=== PATIENT | female | born 1940 | race Two or more races ===

== ENCOUNTER 2020-08-02 13:04 | Outpatient (REF) | payer MEDICARE, SELFPAY ==
--- NOTE | 2020-08-02 13:08 | XR_ITS ---
EXAMINATION: XR WRIST, RIGHT CLINICAL INFORMATION: Right wrist fracture COMPARISON: Previous x-ray most recent 06/14/2020 TECHNIQUE: PA, lateral, and oblique views of the right wrist. FINDINGS: There is a transverse impacted fracture of the right distal radius. There is a surrounding bony callus formation suggestive of evidence of healing. There is slight dorsal angulation of the distal radius with respect to the more proximal shaft. Fracture line is still seen. There is a a nondisplaced fracture of the ulnar styloid. There is a well-corticated soft tissue ossification adjacent to the ulnar styloid questionable for an ununited ossification center versus old fracture. There is arthritis at the first CHCF and MCP joints. Soft tissues are unremarkable. XR/XR wrist RT min 3V IMPRESSION: Healing transverse distal radius fracture. Nondisplaced ulnar styloid fracture.
== END 2020-08-02 13:05 | disposition home or self-care (01) ==
LOC: HO.HOSX 13:04
PROVIDERS: Visit Provider Physician Assistant
DX: S52.501D Unspecified fracture of the lower end of right radius, subsequent encounter for closed fracture with routine healing (principal)
CPT/HCPCS: 73110; 99212

== ENCOUNTER 2020-08-13 11:07 | Outpatient (REF) | payer MEDICARE, SELFPAY ==
--- NOTE | 2020-08-13 | MM_ITS ---
EXAMINATION: BONE DENSITOMETRY CLINICAL INDICATION: Age-related osteoporosis without current pathological fracture. COMPARISON: This is the patient's baseline examination. TECHNIQUE: Using a [employer] DXA System (software version: 13.1) manufactured by [employer], dual-energy x-ray absorptiometry was performed of the lumbar spine and left hip. The images are of good technical quality. Summary results are attached. FINDINGS: AP SPINE L1-L4: BMD 0.894 g/cm2, Z-score -0.2, T-score -2.4, osteopenia. LEFT FEMUR, NECK: BMD 0.792 g/cm2, Z-score 0.6, T-score -1.8, osteopenia. LEFT FEMUR, TOTAL: BMD 0.940 g/cm2, Z-score 1.7, T-score -0.5, normal. IDENTIFIED RISK FACTORS: Recurrent falls, history of fracture (adult), menopause. HISTORY OF FRACTURE: Wrist. MEDICATIONS: None listed. MM/XR DEXA axial skeleton IMPRESSION: 1. DIAGNOSIS: Osteopenia based on the lowest T-score value of -2.4 in the lumbar spine applying World Health Organization criteria. 2. 10-YEAR FRACTURE RISK PREDICTION, FRAX: Major osteoporotic fracture (clinical spine, forearm, hip or shoulder) 8.8%. Hip fracture 2.3%. 3. Treatment Recommendations: NOF guidelines recommend consideration for treatment in postmenopausal women and men age 50 and older presenting with the following: -A hip or vertebral (clinical or morphometric) fracture. -T-score less than or equal to -2.5 at the femoral neck or spine after appropriate evaluation to exclude secondary causes. -Low bone mass at the hip or spine and a 10-year fracture probability by FRAX of greater than or equal to 3% for hip fracture or greater than or equal to 20% for major osteoporotic fracture based on the [place] adapted WHO algorithm. 4. Other Recommendations: All treatment decisions require clinical judgment and consideration of individual patient factors, including patient preferences, comorbidities, previous drug use, risk factors not captured in the FRAX model (e.g. frailty, falls, vitamin D deficiency, increased bone turnover, interval significant decline in bone density) and possible under or overestimation of fracture risk by FRAX. Additional medical evaluation for secondary cause of low bone mineral density may be appropriate. FUTURE SCAN RECOMMENDATION: People with diagnosed cases of osteoporosis or at high risk for fracture should have regular bone mineral density tests. For patients eligible for Medicare, routine testing is allowed once every 2 years. The testing frequency can be increased to one year for patients who have rapidly progressing disease, those who are receiving or discontinuing medical therapy to restore bone mass, or have additional risk factors.
== END 2020-08-13 11:08 | disposition home or self-care (01) ==
LOC: HO.MAMMO 11:07
PROVIDERS: PCP Internal Medicine Geriatric Medicine; Visit Provider Internal Medicine Geriatric Medicine
DX: S62.101D Fracture of unspecified carpal bone, right wrist, subsequent encounter for fracture with routine healing (principal); M81.0 Age-related osteoporosis without current pathological fracture
CPT/HCPCS: 77080

== ENCOUNTER → 2020-09-19 10:56 | Outpatient (BNVA) | payer MEDICARE, SELFPAY | PROVIDERS: PCP Internal Medicine Geriatric Medicine; Referring Provider Internal Medicine Geriatric Medicine; Visit Provider Nurse Practitioner Family | DX: I25.10 Atherosclerotic heart disease of native coronary artery without angina pectoris (principal); I10 Essential (primary) hypertension; R94.39 Abnormal result of other cardiovascular function study; E78.5 Hyperlipidemia, unspecified; I69.398 Other sequelae of cerebral infarction; H53.9 Unspecified visual disturbance | CPT/HCPCS: 99212 ==

== ENCOUNTER 2020-09-27 12:22 | Outpatient (REF) | payer MEDICARE, SELFPAY ==
[2020-09-27 14:40] LABS: Alanine Aminotransferase 9 U/L (0-31); Anion Gap 12 (12-20); Aspartate Amino Transferase 19 U/L (5-31); Blood Urea Nitrogen 16 mg/dL (9-16); Carbon Dioxide 26 mmol/L (22-29); Chloride 103 mmol/L (96-108); Cholesterol 249 mg/dL; Estimated Glomerular Filt Rate > 60; Glucose Random 90 mg/dL (60-115); HDL Cholesterol 42 mg/dL; LDL Cholesterol Calculated 175 mg/dl; Potassium 4.7 mmol/l (3.3-5.1); Sodium 136 mmol/L (135-145); Triglycerides 162 mg/dL
== END 2020-09-27 12:23 | disposition home or self-care (01) ==
LOC: HO.LAB 12:22
PROVIDERS: PCP Internal Medicine Geriatric Medicine; Visit Provider Nurse Practitioner Family
DX: I10 Essential (primary) hypertension (principal); E78.5 Hyperlipidemia, unspecified
CPT/HCPCS: 80048; 80061; 84450; 84460

== ENCOUNTER 2021-02-06 14:22 | Emergency (ER) | payer MEDICARE, SELFPAY ==
[2021-02-06 14:27] VITALS: BP 152/83; PULSE 85; RESP 18; TEMP 36.7; O2SAT 96; BMI 28.9
[2021-02-06 16:08] LABS: Alanine Aminotransferase 9 U/L (0-31); Albumin Level 4.4 g/dL (3.5-5.0); Alkaline Phosphatase 70 U/L (39-117); Anion Gap 16 (12-20); Aspartate Amino Transferase 23 U/L (5-31); Bilirubin Total 0.6 mg/dL (0.0-1.0); Blood Urea Nitrogen 12 mg/dL (9-16); Calcium 9.7 mg/dL (8.4-10.2); Carbon Dioxide 20 mmol/L (22-29); Chloride 105 mmol/L (96-108); Creatinine Clr Calc Pharmacy 28.1; Estimated Glomerular Filt Rate 52; Glucose Random 114 mg/dL (60-115); Potassium 4.3 mmol/L (3.3-5.1); Sodium 137 mmol/L (135-145); Total Protein 8.1 g/dL (6.5-8.0)
--- NOTE | 2021-02-06 17:08 | ED_ITS ---
HPI - Abdominal Pain General Chief Complaint: Abdominal Pain Stated Complaint: abdominal pain Time Seen by Provider: 02/06/21 17:08 Source: patient Mode of arrival: ambulatory Limitations: no limitations History of Present Illness HPI narrative: Patient with history of chronic constipation complaining of diffuse abdominal pain has not moved her bowels last 1 week. Also patient complaining of left shoulder pain headache no fever no nausea no vomiting no blood in the stool Related Data Home Medications Medication Instructions Recorded Confirmed amitriptyline 10 mg tablet 10 mg PO DAILY 08/02/20 09/19/20 atorvastatin 40 mg tablet 40 mg PO DAILY 08/02/20 09/19/20 bisacodyl 5 mg tablet,delayed 5 mg PO BEDTIME 08/02/20 09/19/20 release omeprazole 10 mg capsule,delayed 10 mg PO DAILY 08/02/20 09/19/20 release sumatriptan succinate 50 mg tablet 50 mg PO Q2-4H PRN 08/02/20 09/19/20 aspirin 81 mg tablet,delayed 81 mg PO DAILY 09/19/20 09/19/20 release metoprolol succinate 25 mg 25 mg PO DAILY 09/19/20 09/19/20 tablet,extended release 24 hr Previous Rx's Medication Instructions Recorded arm brace #1 ea 08/09/20 Allergies Allergy/AdvReac Type Severity Reaction Status Date / Time No Known Allergies Allergy Unknown UNKNOWN Verified 02/06/21 14:31 [NO KNOWN ALLERGIES] Review of Systems Review of Systems Constitutional : No Weight loss, No Fever, No Chills ENT/Mouth : No sore throat, No Rhinorrhea Eyes: No Eye Pain, No Swelling Cardiovascular : No Chest Pain, no palpitations Respiratory : No Cough, No Sputum, no shortness of breath Gastrointestinal : no Nausea, No Vomiting, No Diarrhea, +abdominal Pain, no black stools Genitourinary : No Dysuria, No Urinary Frequency Musculoskeletal : No joint pain, No Myalgias, No Joint Swelling Skin : No Skin Lesions, No rash Neuro : No Weakness, No Numbness, No Dizziness, No Headache Psych : No Anxiety/Panic, No Depression Heme/Lymph: No Bruising, No Lymphadenopathy Endocrine : No Polyuria, No Polydipsia All other systems reviewed and are negative Physical Exam Vital Signs: Vital Signs: Last Vital Signs Temp 98.1 F 02/06/21 18:00 Pulse 80 02/06/21 18:00 Resp 18 05/05/21 18:00 BP 152/83 H 02/06/21 14:27 Pulse Ox 96 02/06/21 14:27 Body Mass Index 28.9 Appearance: Alert. Oriented X3. No acute distress. Eyes: PERRLA, No Nystagmus ENT: Pharynx normal. Oral Mucosa moist Neck: Normal inspection. Neck supple. CVS: Normal heart rate and rhythm. Pulses normal. Respiratory: No respiratory distress. Equal air entry bilateral, no whee zing/rales/rhonchi Abdomen: Soft diffuse tenderness no focal tenderness no guarding no rebound tend erness. Bowel sounds are present, no mass palpable, no CVA tenderness Rectal: Soft stool nontender Skin: Skin warm and dry. Normal skin color. Normal skin turgor. Extremities: No lower extremity edema. No calf tenderness Neuro: Oriented X 3. No motor deficit. No sensory deficit.No cerebellar signs , cranial nerves II-XII intactos;p'[ ] MDM - Abdominal Pain MDM Narrative Medical decision making narrative: Patient nonspecific abdominal pain with constipation rectum is empty labs are stable will do CT scan to rule out diverticulitis but patient eloped from the ER without waiting for the CT scan Lab Data Attestation: I reviewed the patient's lab results. Result diagrams: 02/06/21 18:25 02/06/21 15:39 Labs: Lab Results 02/06/21 02/06/21 02/06/21 Range/Units 15:39 18:25 18:25 WBC 8.5 (4.8-10.8) X10*3/uL RBC 4.47 (4.20-5.50) X10*6/uL Hgb 14.6 (12.0-16.0) g/dl Hct 43.6 (37-47) % MCV 97.5 (80-98) fL MCH 32.7 (27.0-33.0) pg MCHC 33.5 (31.0-35.0) g/dl RDW 12.6 (11.0-16.0) % Plt Count 260 (160-400) X10*3/uL MPV 12.1 (9.4-12.3) fL Immature Gran % (Auto) 0.2 (0.0-0.4) % Neut % (Auto) 50.7 (45-73) % Lymph % (Auto) 36.3 (20-40) % [place] % (Auto) 11.5 H (2-11) % Eos % (Auto) 0.9 (0-4) % Baso % (Auto) 0.4 (0-2) % Lymph # (Auto) 3.1 (1.2-4.9) X10*3/uL [place] # (Auto) 1.0 (0.1-1.2) X10*3/uL Eos # (Auto) 0.1 (0.0-0.4) X10*3/uL Baso # (Auto) 0.0 (0.0-0.2) X10*3/uL Abs Immat Gran (auto) 0.02 (0.00-0.03) X10*3/uL Absolute Neuts (auto) 4.3 (2.0-8.3) X10*3/uL Absolute Nucleated RBC 0.000 (0.0-0.012) X10*3/uL Nucleated RBC % (auto) 0.0 (0.0-0.2) /100WBC Hold Blue Top SEE NOTE Sodium 137 (135-145) mmol/L Potassium 4.3 (3.3-5.1) mmol/L Chloride 105 (96-108) mmol/L Carbon Dioxide 20 L (22-29) mmol/L Anion Gap 16 (12-20) BUN 12 (9-16) mg/dL Creatinine 1.03 (0.5-1.4) mg/dL Estim Creat Clear Calc 28.1 Estimated GFR 52 Random Glucose 114 (60-115) mg/dL Calcium 9.7 D (8.4-10.2) mg/dL Total Bilirubin 0.6 (0.0-1.0) mg/dL AST 23 (5-31) U/L ALT 9 (0-31) U/L Alkaline Phosphatase 70 (39-117) U/L Total Protein 8.1 H (6.5-8.0) g/dL Albumin 4.4 (3.5-5.0) g/dL Discharge Plan Discharge Patient Disposition: Elopement Prescriptions: No Action amitriptyline 10 mg tablet 10 mg PO DAILY RF: 0 sumatriptan succinate 50 mg tablet 50 mg PO Q2-4H PRNRF: 0 bisacodyl [Dulcolax (bisacodyl)] 5 mg tablet,delayed release (DR/EC) 5 mg PO BEDTIME RF: 0 omeprazole 10 mg capsule,delayed release(DR/EC) 10 mg PO DAILY RF: 0 atorvastatin 40 mg tablet 40 mg PO DAILY RF: 0 (DME) Wrist Brace Misc See Rx Instructions .MEDSUPPLY Qty: 1 RF: 0 aspirin [Adult Low Dose Aspirin] 81 mg tablet,delayed release (DR/EC) 81 mg PO DAILY RF: 0 metoprolol succinate 25 mg tablet extended release 24 hr 25 mg PO DAILY RF: 0 Discharge Date/Time: 02/06/21 19:11 [facility] Past Medical History Medical History Abnormal nuclear stress test Coronary artery disease CVA, old, disturbances of vision (~09/2019) Dementia HLD (hyperlipidemia) HTN (hypertension) NSTEMI (non-ST elevated myocardial infarction) Family History Family History Father No problems noted. Mother No problems noted. Social History Social History Years Smoked: Chews tobacco Advance Directives: No Advance Directives Information Provided: Yes
[2021-02-06 18:00] VITALS: PULSE 80; RESP 18; TEMP 36.7
[2021-02-06 18:34] LABS: Basophils Percent Auto 0.4 % (0-2); Eosinophils Absolute Auto 0.1 X10*3/uL (0.0-0.4); Eosinophils Percent Auto 0.9 % (0-4); Hematocrit 43.6 % (37-47); Hemoglobin 14.6 g/dl (12.0-16.0); Imm Gran Abs Auto 0.02 X10*3/uL (0.00-0.03); Imm Gran Pct Auto 0.2 % (0.0-0.4); Lymphocytes Absolute Auto 3.1 X10*3/uL (1.2-4.9); Lymphocytes Percent Auto 36.3 % (20-40); Mean Corpuscular HGB Conc 33.5 g/dl (31.0-35.0); Mean Corpuscular Hemoglobin 32.7 pg (27.0-33.0); Mean Corpuscular Volume 97.5 fL (80-98); Mean Platelet Volume 12.1 fL (9.4-12.3); Monocytes Percent Auto 11.5 % (2-11); Neutrophils Absolute Auto 4.3 X10*3/uL (2.0-8.3); Neutrophils Percent Auto 50.7 % (45-73); Platelet Count 260 X10*3/uL (160-400); Red Blood Count 4.47 X10*6/uL (4.20-5.50); Red Cell Distribution Width 12.6 % (11.0-16.0); White Blood Count 8.5 X10*3/uL (4.8-10.8)
[2021-02-06 19:49] LABS: MANUAL DIFF FLAG NO
== END 2021-02-06 19:11 | disposition left against medical advice (07) ==
PROVIDERS: Emergency Medicine; Emergency Provider Internal Medicine; PCP Internal Medicine Geriatric Medicine
DX: K59.00 Constipation, unspecified (principal); R10.9 Unspecified abdominal pain; I10 Essential (primary) hypertension; E78.5 Hyperlipidemia, unspecified; Z79.02 Long term (current) use of antithrombotics/antiplatelets; Z79.82 Long term (current) use of aspirin; Z79.899 Other long term (current) drug therapy
CPT/HCPCS: 36415; 80053; 85025; 99283

== ENCOUNTER 2021-02-09 13:54 | Emergency (ER) | payer MEDICARE, SELFPAY ==
--- NOTE | 2021-02-09 14:06 | PC.NURSE ---
pt arrived with 3 visitors. Visitors were told only one could wait with the patient. Pt exited waiting room.
== END 2021-02-09 15:05 | disposition left against medical advice (07) ==
PROVIDERS: Emergency Provider Emergency Medicine
DX: R11.10 Vomiting, unspecified (principal)

== ENCOUNTER 2021-02-27 11:33 | Outpatient (REF) | payer MEDICARE, SELFPAY ==
--- NOTE | ~2021-02-27 | XR_ITS ---
EXAMINATION: CHEST X-RAY, RIGHT RIB X-RAY AND RIGHT SHOULDER X-RAY CLINICAL INFORMATION: Right-sided chest and shoulder pain and pleural tiny COMPARISON: Previous chest x-ray most recent March 2020 TECHNIQUE: 2 views of the chest, 3 views of the right ribs and 3 views of the right shoulder FINDINGS: Chest: The cardiac and mediastinal contours are stable. The lungs are clear. There is no pleural effusion or pneumothorax. Bony structures are unremarkable. Right RIBS: No rib fracture or bone lesion is seen. Right shoulder: Bone alignment is normal. No fracture or dislocation is seen. The glenohumeral joint is normal. There is mild arthritis at the acromioclavicular joint. Soft tissues are unremarkable. XR/XR ribs RT 2V IMPRESSION: Mild arthritis at the acromioclavicular joint. Unremarkable chest and right rib x-rays.
--- NOTE | ~2021-02-27 | XR_ITS ---
EXAMINATION: CHEST X-RAY, RIGHT RIB X-RAY AND RIGHT SHOULDER X-RAY CLINICAL INFORMATION: Right-sided chest and shoulder pain and pleural tiny COMPARISON: Previous chest x-ray most recent March 2020 TECHNIQUE: 2 views of the chest, 3 views of the right ribs and 3 views of the right shoulder FINDINGS: Chest: The cardiac and mediastinal contours are stable. The lungs are clear. There is no pleural effusion or pneumothorax. Bony structures are unremarkable. Right RIBS: No rib fracture or bone lesion is seen. Right shoulder: Bone alignment is normal. No fracture or dislocation is seen. The glenohumeral joint is normal. There is mild arthritis at the acromioclavicular joint. Soft tissues are unremarkable. XR/XR chest 2V IMPRESSION: Mild arthritis at the acromioclavicular joint. Unremarkable chest and right rib x-rays.
--- NOTE | ~2021-02-27 | XR_ITS ---
EXAMINATION: CHEST X-RAY, RIGHT RIB X-RAY AND RIGHT SHOULDER X-RAY CLINICAL INFORMATION: Right-sided chest and shoulder pain and pleural tiny COMPARISON: Previous chest x-ray most recent March 2020 TECHNIQUE: 2 views of the chest, 3 views of the right ribs and 3 views of the right shoulder FINDINGS: Chest: The cardiac and mediastinal contours are stable. The lungs are clear. There is no pleural effusion or pneumothorax. Bony structures are unremarkable. Right RIBS: No rib fracture or bone lesion is seen. Right shoulder: Bone alignment is normal. No fracture or dislocation is seen. The glenohumeral joint is normal. There is mild arthritis at the acromioclavicular joint. Soft tissues are unremarkable. XR/XR shoulder RT min 2V IMPRESSION: Mild arthritis at the acromioclavicular joint. Unremarkable chest and right rib x-rays.
== END 2021-02-27 11:34 | disposition home or self-care (01) ==
LOC: HO.XRAY 11:33
PROVIDERS: Absent Provider Internal Medicine Geriatric Medicine; PCP Internal Medicine Geriatric Medicine; Visit Provider Emergency Medicine
DX: R07.81 Pleurodynia (principal); M25.511 Pain in right shoulder
CPT/HCPCS: 71046; 71100; 73030

== ENCOUNTER 2021-03-13 10:23 | Emergency (ER) | payer MEDICARE, SELFPAY ==
--- NOTE | 2021-03-13 | ECG_ITS ---
Test Reason : CHEST PAIN Blood Pressure : / mmHG Vent. Rate : 067 BPM Atrial Rate : 067 BPM P-R Int : 130 ms QRS Dur : 084 ms QT Int : 438 ms P-R-T Axes : 061 002 038 degrees QTc Int : 462 ms Normal sinus rhythm Possible Lateral infarct (cited on or before 04-MAY-2020) Abnormal ECG When compared with ECG of 04-MAY-2020 20:16, No significant change was found Referred By: Yuliya Longo Electronically Signed By:AUDREY SERRA MD
--- NOTE | ~2021-03-13 | CT_ITS ---
EXAMINATION: CT ABDOMEN AND PELVIS WITHOUT CONTRAST CLINICAL INFORMATION: Left lower quadrant pain COMPARISON: CT abdomen and pelvis 01/30/2020 TECHNIQUE: Multidetector volumetric imaging was performed from the superior aspect of the liver through the pubic symphysis. Sagittal and coronal reformatted images were obtained on the technologist's workstation. No oral or intravenous contrast. This CT examination was performed using dose optimization techniques as appropriate, variously including the following: *Automated exposure control *Adjustment of mA and/or kV according to patient size (this includes techniques or standardized protocols for targeted exams where dose is matched to indication/reason for exam; i.e. extremities or head) *Use of iterative reconstruction technique DLP: 484 mGy-cm FINDINGS: LUNG BASES: No airspace consolidation or effusion. Calcification mitral valve versus mitral annulus similar to prior exam. LIVER, GALLBLADDER, AND BILIARY TREE: The liver is normal in size and smooth in contour. No focal hepatic parenchymal lesion or intrahepatic ductal dilatation. There are small dependent calculi again seen in the gallbladder. No wall thickening or pericholecystic stranding. Common duct unremarkable. PANCREAS: Unremarkable. SPLEEN: Unremarkable. ADRENAL GLANDS: Unremarkable. KIDNEYS AND URETERS: The kidneys are normal in size and contour. There is no hydronephrosis, hydroureter, or perinephric stranding. Punctate nonobstructing left lower pole calculus measures under 3 mm. No ureteral calculi. BLADDER: Unremarkable. GASTROINTESTINAL TRACT: Small sliding hiatal hernia. There is no bowel obstruction or focal inflammatory changes in the bowel or mesentery. The appendix is normal. No ascites or fluid collection. ABDOMINAL WALL: Small fat-containing umbilical hernia under 3 cm. Small bilateral fat-containing inguinal hernias. LYMPH NODES: No lymphadenopathy. VASCULAR: Unremarkable. PELVIC VISCERA: No adnexal mass or pelvic ascites. OSSEOUS STRUCTURES: Unremarkable. CT/CT abdomen pelvis wo con IMPRESSION: 1. Cholelithiasis. No pericholecystic inflammatory changes or ductal dilatation. 2. No hydronephrosis or perinephric stranding. Nonobstructing punctate left lower pole calculus under 3 mm. 3. Small sliding hiatal hernia. No bowel obstruction or inflammatory changes. Normal appendix.
[2021-03-13 10:27] VITALS: BP 126/74; PULSE 71; RESP 16; TEMP 36.8; O2SAT 96
[2021-03-13 10:33] VITALS: BP 126/74; PULSE 74; RESP 20; TEMP 36.8; O2SAT 94; BMI 26.9
--- NOTE | 2021-03-13 10:36 | ED_ITS ---
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 Mode of arrival: EMS Limitations: no limitations History of Present Illness HPI Narrative: 80 female with CAD, HLD, HTN, CVA - issues with vision, NSTEMI here with nausea and dizziness with position changes since last night after stressful event with her son, also c/o urinary frequency and LLQ pain MD elicited complaint: nausea and other (dizziness, urinary frequency, LLQ pain) Onset (ago): day(s) (last night before bed) Associated nausea: Yes Associated abdominal pain: Yes Location of pain: LLQ Pain consistency: intermittent Severity: mild Quality: cramping Exacerbating factors: none Relieving factors: none Context: other (stressful event last night) Associated symptoms: loss of appetite, nausea/vomiting and other (increased urination) Related Data Home Medications Medication Instructions Recorded Confirmed amitriptyline 10 mg tablet 10 mg PO DAILY 08/02/20 09/19/20 bisacodyl 5 mg tablet,delayed 5 mg PO BEDTIME 08/02/20 09/19/20 release omeprazole 10 mg capsule,delayed 10 mg PO DAILY 08/02/20 09/19/20 release sumatriptan succinate 50 mg tablet 50 mg PO Q2-4H PRN 08/02/20 09/19/20 Previous Rx's Medication Instructions Recorded arm brace #1 ea 08/09/20 aspirin 81 mg tablet,delayed 81 mg PO DAILY #90 tab 02/26/21 release atorvastatin 40 mg tablet 40 mg PO DAILY #90 tab 02/26/21 metoprolol succinate 25 mg 25 mg PO DAILY #90 tab 02/26/21 tablet,extended release 24 hr cefuroxime axetil 500 mg PO BID 10 Days #20 tab 03/13/21 ondansetron 4 mg PO Q8H PRN #20 tab 03/13/21 Allergies Allergy/AdvReac Type Severity Reaction Status Date / Time No Known Allergies Allergy Unknown UNKNOWN Verified 02/06/21 14:31 [NO KNOWN ALLERGIES] Review of Systems Review of Systems: Constitutional : No Weight loss, No Fever, No Chills, No Fatigue, No Malaise ENT/Mouth : No sore throat, No Rhinorrhea Eyes: No Eye Pain, No Swelling, No Redness Cardiovascular : No Chest Pain, No SOB, No Dyspnea on Exertion, No Orthopnea, No Edema, No Palpitations Respiratory : No Cough, No Sputum, No Wheezing Gastrointestinal : No Nausea, No Vomiting, No Diarrhea, No Constipation, pos abdominal Pain, No Hematochezia, No Melena Genitourinary : No Dysuria,pos Urinary Frequency, No Hematuria, Musculoskeletal : No joint pain, No Myalgias, No Joint Swelling Skin : No Skin Lesions, No rash Neuro : No Weakness, No Numbness, pos Dizziness, No Headache Psych : No Anxiety/Panic, No Depression Heme/Lymph: No Bruising, No Bleeding,No Lymphadenopathy Endocrine : No Polyuria, No Polydipsia All other systems reviewed and are negative Gastrointestinal: Gastrointestinal: Reports nausea PMFSH Past Medical History Attestation statement: The following information was validated with the patient. Medical History Abnormal nuclear stress test Coronary artery disease CVA, old, disturbances of vision (~09/2019) Dementia HLD (hyperlipidemia) HTN (hypertension) NSTEMI (non-ST elevated myocardial infarction) Family History Family History Father No problems noted. Mother No problems noted. Social History Social History (Updated 03/13/21 @ 10:55 by Yuliya Longo DO) Alcohol intake: never Years Smoked: Chews tobacco Use of substances other than those prescribed or required for medical reasons: No Advance Directives: No Advance Directives Information Provided: Yes Physical Exam 2 Vital Signs: Vital Signs: Last Vital Signs Temp 98.2 F 03/13/21 10:33 Pulse 80 03/13/21 12:33 Resp 20 03/13/21 10:33 BP 124/63 03/13/21 12:33 Pulse Ox 94 03/13/21 10:33 Body Mass Index 26.9 Appearance: Alert. Oriented X3. No acute distress. Eyes: Pupils equal, round and reactive to light. ENT: Pharynx normal. Neck: Normal inspection. Neck supple. CVS: Normal heart rate and rhythm. Pulses normal. Respiratory: No respiratory distress. Breath sounds normal. Abdomen: Soft and mild LLQ pain no rebound or guarding Skin: Skin warm and dry. Normal skin color. Normal skin turgor. Extremities: No lower extremity edema. No calf ttp Neuro: Oriented X 3. No motor deficit. No sensory deficit. Course Course Course Narrative: EKG nonischemic, trop negative with symptoms > 12 hours, UA + will start on ceftin, steady gait, stable for DC mild drop in BP given fluids, ambulated feels better MDM - Nausea/Vomiting/Diarrhea MDM Narrative Medical decision making narrative: 80 female with CAD, HLD, HTN, CVA - issues with vision, NSTEMI here with nausea and dizziness with position changes since last night after stressful event with her son, also c/o urinary frequency and LLQ pain at this time the patient has very vague symptoms that are all over the place, no headache no new neuro findings only dizzy with standing seems atypical for posterior stroke, also c/o LLQ pain and dysuria, CT scan for renal colic and UA ordered, dispo per results and findings. Lab Data Result diagrams: 03/13/21 11:13 03/13/21 11:13 Labs: Lab Results 03/13/21 03/13/21 03/13/21 Range/Units 11:07 11:13 11:13 WBC 7.4 (4.8-10.8) X10*3/uL RBC 3.94 L (4.20-5.50) X10*6/uL Hgb 12.7 (12.0-16.0) g/dl Hct 38.0 (37-47) % MCV 96.4 (80-98) fL MCH 32.2 (27.0-33.0) pg MCHC 33.4 (31.0-35.0) g/dl RDW 13.2 (11.0-16.0) % Plt Count 243 (160-400) X10*3/uL MPV 12.3 (9.4-12.3) fL Immature Gran % (Auto) 0.3 (0.0-0.4) % Neut % (Auto) 65.4 (45-73) % Lymph % (Auto) 20.5 (20-40) % [place] % (Auto) 12.0 H (2-11) % Eos % (Auto) 1.1 (0-4) % Baso % (Auto) 0.7 (0-2) % Lymph # (Auto) 1.5 (1.2-4.9) X10*3/uL [place] # (Auto) 0.9 (0.1-1.2) X10*3/uL Eos # (Auto) 0.1 (0.0-0.4) X10*3/uL Baso # (Auto) 0.1 (0.0-0.2) X10*3/uL Abs Immat Gran (auto) 0.02 (0.00-0.03) X10*3/uL Absolute Neuts (auto) 4.9 (2.0-8.3) X10*3/uL Absolute Nucleated RBC 0.000 (0.0-0.012) X10*3/uL Nucleated RBC % (auto) 0.0 (0.0-0.2) /100WBC Sodium 139 (135-145) mmol/L Potassium 4.2 (3.3-5.1) mmol/L Chloride 106 (96-108) mmol/L Carbon Dioxide 23 (22-29) mmol/L Anion Gap 14 (12-20) BUN 8 L (9-16) mg/dL Creatinine 0.65 (0.5-1.4) mg/dL Estim Creat Clear Calc 57.0 Estimated GFR > 60 Random Glucose 139 H (60-115) mg/dL Calcium 9.4 (8.4-10.2) mg/dL Magnesium 2.1 (1.6-2.6) mg/dL Total Bilirubin < 0.2 (0.0-1.0) mg/dL Direct Bilirubin < 0.2 (0.0-0.5) mg/dL AST 22 (5-31) U/L ALT 7 (0-31) U/L Alkaline Phosphatase 64 (39-117) U/L Troponin I High Sens (<3.5-17.0) ng/L Total Protein 7.0 (6.5-8.0) g/dL Albumin 3.8 (3.5-5.0) g/dL Lipase 30 (8-78) U/L Urine Color YELLOW Urine Appearance HAZY Urine pH 6.5 (5.0-8.0) Ur Specific [place] <= 1.005 (1.005-1.025) Urine Protein NEG (NEG-TRACE) MG/DL Urine Glucose (UA) NEG (NEG) MG/DL Urine Ketones NEG (NEG) MG/DL Urine Blood NEG (NEG) Urine Nitrite NEG (NEG) Ur Leukocyte Esterase 3+ H (NEG) Urine RBC 1-4 (0) /HPF Urine WBC 15-29 H (0-4) /HPF Ur Squamous Epith Cells 1+ /LPF Urine Bacteria 1+ /LPF 03/13/21 Range/Units 11:13 WBC (4.8-10.8) X10*3/uL RBC (4.20-5.50) X10*6/uL Hgb (12.0-16.0) g/dl Hct (37-47) % MCV (80-98) fL MCH (27.0-33.0) pg MCHC (31.0-35.0) g/dl RDW (11.0-16.0) % Plt Count (160-400) X10*3/uL MPV (9.4-12.3) fL Immature Gran % (Auto) (0.0-0.4) % Neut % (Auto) (45-73) % Lymph % (Auto) (20-40) % [place] % (Auto) (2-11) % Eos % (Auto) (0-4) % Baso % (Auto) (0-2) % Lymph # (Auto) (1.2-4.9) X10*3/uL [place] # (Auto) (0.1-1.2) X10*3/uL Eos # (Auto) (0.0-0.4) X10*3/uL Baso # (Auto) (0.0-0.2) X10*3/uL Abs Immat Gran (auto) (0.00-0.03) X10*3/uL Absolute Neuts (auto) (2.0-8.3) X10*3/uL Absolute Nucleated RBC (0.0-0.012) X10*3/uL Nucleated RBC % (auto) (0.0-0.2) /100WBC Sodium (135-145) mmol/L Potassium (3.3-5.1) mmol/L Chloride (96-108) mmol/L Carbon Dioxide (22-29) mmol/L Anion Gap (12-20) BUN (9-16) mg/dL Creatinine (0.5-1.4) mg/dL Estim Creat Clear Calc Estimated GFR Random Glucose (60-115) mg/dL Calcium (8.4-10.2) mg/dL Magnesium (1.6-2.6) mg/dL Total Bilirubin (0.0-1.0) mg/dL Direct Bilirubin (0.0-0.5) mg/dL AST (5-31) U/L ALT (0-31) U/L Alkaline Phosphatase (39-117) U/L Troponin I High Sens 3.6 (<3.5-17.0) ng/L Total Protein (6.5-8.0) g/dL Albumin (3.5-5.0) g/dL Lipase (8-78) U/L Urine Color Urine Appearance Urine pH (5.0-8.0) Ur Specific [place] (1.005-1.025) Urine Protein (NEG-TRACE) MG/DL Urine Glucose (UA) (NEG) MG/DL Urine Ketones (NEG) MG/DL Urine Blood (NEG) Urine Nitrite (NEG) Ur Leukocyte Esterase (NEG) Urine RBC (0) /HPF Urine WBC (0-4) /HPF Ur Squamous Epith Cells /LPF Urine Bacteria /LPF ECG Data Attestation: I personally reviewed and interpreted this ECG as follows: ECG interpretation date: 03/13/21 ECG interpretation time: 10:59 Interpretation: Rate: 67 Rhythm: NSR [place]: normal Normal P waves. Normal SATHYA. Normal QRS complex. ST T wave : no ALTA, inverted aVR, V1 qTC: normal prior studies: unchanged 2019 The study has been interpreted contemporaneously by me. . Discharge Plan Discharge Clinical Impression: Acute UTI, Acute dehydration Patient Disposition: Home, Self-Care Instructions: Dehydration (ED), Urinary Tract Infection in Older Adults (ED) Additional Instructions: return to ED for any worsening symptoms or concerns Prescriptions: New ondansetron 4 mg tablet,disintegrating 4 mg PO Q8H PRN (Reason: nausea and vomiting) Qty: 20 RF: 0 cefuroxime axetil 500 mg tablet 500 mg PO BID 10 Days Qty: 20 RF: 0 No Action aspirin [Adult Low Dose Aspirin] 81 mg tablet,delayed release (DR/EC) 81 mg PO DAILY Qty: 90 RF: 3 atorvastatin 40 mg tablet 40 mg PO DAILY Qty: 90 RF: 3 metoprolol succinate 25 mg tablet extended release 24 hr 25 mg PO DAILY Qty: 90 RF: 1 amitriptyline 10 mg tablet 10 mg PO DAILY RF: 0 sumatriptan succinate 50 mg tablet 50 mg PO Q2-4H PRNRF: 0 bisacodyl [Dulcolax (bisacodyl)] 5 mg tablet,delayed release (DR/EC) 5 mg PO BEDTIME RF: 0 omeprazole 10 mg capsule,delayed release(DR/EC) 10 mg PO DAILY RF: 0 (DME) Wrist Brace Misc See Rx Instructions .MEDSUPPLY Qty: 1 RF: 0 Referrals: Physician,Unknown [Primary Care Provider] - 2 days (if not better) Print Language: Serbian
[2021-03-13 11:15] LABS: Glucose Urine UA NEG (NEG); Leukocyte Esterase Urine 3+ (NEG); Nitrite Urine NEG (NEG); PH 6.5 (5.0-8.0); Specific Gravity - Urine <= 1.005 (1.005-1.025); UACC Culture Trigger YES; Urine Blood NEG (NEG); Urine Ketones NEG (NEG); Urine Protein NEG (NEG-TRACE)
[2021-03-13 11:16] LABS: Appearance Urine HAZY; Color Urine YELLOW
[2021-03-13 11:26] LABS: Bacteria Urine 1+ /LPF; Squamous Epithelial Cell Urine 1+ /LPF
[2021-03-13 11:37] LABS: MANUAL DIFF FLAG NO
[2021-03-13 11:43] LABS: Basophils Absolute Auto 0.1 X10*3/uL (0.0-0.2); Basophils Percent Auto 0.7 % (0-2); Eosinophils Absolute Auto 0.1 X10*3/uL (0.0-0.4); Eosinophils Percent Auto 1.1 % (0-4); Hemoglobin 12.7 g/dl (12.0-16.0); Imm Gran Abs Auto 0.02 X10*3/uL (0.00-0.03); Imm Gran Pct Auto 0.3 % (0.0-0.4); Lymphocytes Absolute Auto 1.5 X10*3/uL (1.2-4.9); Lymphocytes Percent Auto 20.5 % (20-40); Mean Corpuscular HGB Conc 33.4 g/dl (31.0-35.0); Mean Corpuscular Hemoglobin 32.2 pg (27.0-33.0); Mean Corpuscular Volume 96.4 fL (80-98); Mean Platelet Volume 12.3 fL (9.4-12.3); Monocytes Absolute Auto 0.9 X10*3/uL (0.1-1.2); Neutrophils Absolute Auto 4.9 X10*3/uL (2.0-8.3); Neutrophils Percent Auto 65.4 % (45-73); Platelet Count 243 X10*3/uL (160-400); Red Blood Count 3.94 X10*6/uL (4.20-5.50); Red Cell Distribution Width 13.2 % (11.0-16.0); White Blood Count 7.4 X10*3/uL (4.8-10.8)
[2021-03-13 12:06] LABS: Alanine Aminotransferase 7 U/L (0-31); Albumin Level 3.8 g/dL (3.5-5.0); Alkaline Phosphatase 64 U/L (39-117); Anion Gap 14 (12-20); Aspartate Amino Transferase 22 U/L (5-31); Bilirubin Direct < 0.2 mg/dL (0.0-0.5); Bilirubin Total < 0.2 mg/dL (0.0-1.0); Blood Urea Nitrogen 8 mg/dL (9-16); Calcium 9.4 mg/dL (8.4-10.2); Carbon Dioxide 23 mmol/L (22-29); Chloride 106 mmol/L (96-108); Estimated Glomerular Filt Rate > 60; Glucose Random 139 mg/dL (60-115); Lipase 30 U/L (8-78); Magnesium 2.1 mg/dL (1.6-2.6); Potassium 4.2 mmol/L (3.3-5.1); Sodium 139 mmol/L (135-145)
[2021-03-13 12:09] LABS: Troponin-I High Sensitivity 3.6 ng/L (<3.5-17.0)
[2021-03-13 12:28] VITALS: BP 147/72; PULSE 69
[2021-03-13 12:31] VITALS: BP 140/80; PULSE 80
[2021-03-13 12:33] VITALS: BP 124/63; PULSE 80
[2021-03-13] MEDS: 0.9 % Sodium Chloride 500 ML IV (12:44)
[2021-03-13] MEDS: ondansetron HCL 4 MG/2 ML VIAL IVPUSH (12:44)
--- NOTE | 2021-03-13 14:10 | PC.NURSE ---
Patient ambulated in hallway without assistance and with a steady gate.
--- NOTE | 2021-03-13 14:15 | MHC.CM.ED ---
Patient was about to be discharged and was requesting a walker. Patient is active with [facility]. T/W reached out to Arleen at [facility] to arrange a walker. Continue to monitor for d/c needs.
--- NOTE | 2021-03-13 14:22 | PC.NURSE ---
Peripheral iv removed and pressure bandage applied discharge instructions given to pt and son who verbalized understaning.
== END 2021-03-13 14:23 | disposition home or self-care (01) ==
PROVIDERS: Emergency Provider Emergency Medicine
DX: N39.0 Urinary tract infection, site not specified (principal); E86.0 Dehydration; R11.2 Nausea with vomiting, unspecified; R19.7 Diarrhea, unspecified; I10 Essential (primary) hypertension; E78.5 Hyperlipidemia, unspecified
CPT/HCPCS: 36415; 74176; 80048; 80076; 81001; 81003; 83690; 83735; 84484; 85025; 87086; 87088; 87186; 93005; 96361; 96374; 99284; J2405

== ENCOUNTER → 2021-03-19 12:25 | Outpatient (BNVA) | payer MEDICARE, SELFPAY | PROVIDERS: PCP Internal Medicine Geriatric Medicine; Visit Provider Internal Medicine Cardiovascular Disease | DX: I25.10 Atherosclerotic heart disease of native coronary artery without angina pectoris (principal); I10 Essential (primary) hypertension | CPT/HCPCS: 99212 ==

== ENCOUNTER 2021-03-21 12:40 | Outpatient (REF) | payer MEDICARE, SELFPAY ==
[2021-03-21 15:06] LABS: Vitamin B12 211 pg/mL (200-900)
== END 2021-03-21 12:41 | disposition home or self-care (01) ==
LOC: HO.LAB 12:40
PROVIDERS: PCP Internal Medicine Geriatric Medicine; Visit Provider Psychiatry & Neurology Neurology
DX: G30.9 Alzheimer's disease, unspecified (principal)
CPT/HCPCS: 36415; 82607

== ENCOUNTER 2021-06-14 15:51 | Emergency (ER) | payer MEDICARE, SELFPAY ==
--- NOTE | ~2021-06-14 | XR_ITS ---
EXAMINATION: XR ELBOW, LEFT CLINICAL INFORMATION: Fall COMPARISON: None TECHNIQUE: AP, lateral, and oblique views of the left elbow. FINDINGS: No fracture, dislocation, or joint effusion. There is minimal enthesopathy at the distal triceps tendon attachment. XR/XR elbow LT min 3V IMPRESSION: No acute osseous abnormality of the left elbow.
[2021-06-14 16:11] VITALS: BP 144/43; PULSE 70; RESP 16; TEMP 37.1; O2SAT 98; BMI 22.6
== END 2021-06-14 18:30 | disposition left against medical advice (07) ==
PROVIDERS: Emergency Provider Emergency Medicine
DX: M25.522 Pain in left elbow (principal)
CPT/HCPCS: 73080; 99282; 99283

== ENCOUNTER 2021-06-27 08:50 | Emergency (ER) | payer MEDICARE, SELFPAY ==
--- NOTE | ~2021-06-27 | CT_ITS ---
EXAMINATION: CT ABDOMEN AND PELVIS WITHOUT CONTRAST CLINICAL INFORMATION: Abdominal pain and vomiting. COMPARISON: CT abdomen/pelvis dated from 03/13/2021. TECHNIQUE: Multidetector volumetric imaging was performed from the superior aspect of the liver through the pubic symphysis. Sagittal and coronal reformatted images were obtained on the technologist's workstation. This CT examination was performed using dose optimization techniques as appropriate, variously including the following: *Automated exposure control *Adjustment of mA and/or kV according to patient size (this includes techniques or standardized protocols for targeted exams where dose is matched to indication/reason for exam; i.e. extremities or head) *Use of iterative reconstruction technique DLP: 285 mGy-cm FINDINGS: LUNG BASES: Dependent atelectases and peripheral parenchymal scarring. No focal consolidation or pleural effusions. Calcifications of the mitral annulus. LIVER, GALLBLADDER, AND BILIARY TREE: The liver is normal in size, shape, and attenuation. No focal hepatic lesion or biliary ductal dilatation is present. There are several stones admixed with sludge layering in the gallbladder but no evidence of gallbladder wall thickening or inflammatory changes to suggest acute cholecystitis. PANCREAS: No focal lesions. The main pancreatic duct is nondilated. There is no significant peripancreatic fat stranding or free fluid. SPLEEN: Unremarkable. ADRENAL GLANDS: Unremarkable. KIDNEYS AND URETERS: Unchanged cortical thinning/scarring in the upper pole of the left kidney (84:6). Redemonstration of a nonobstructive 3 mm calculus in the lower pole of left kidney (79:6). No hydronephrosis. There is mild perinephric fat stranding bilaterally. BLADDER: There is mild diffuse urinary bladder wall thickening. No focal abnormalities. No significant perivesical fat stranding. GASTROINTESTINAL TRACT: There is a small hiatal hernia. The stomach and the small bowel are nondilated. There is redemonstration of submucosal fatty deposition in the cecum and ascending colon. The appendix is unremarkable. There is no colonic wall thickening or active inflammatory bowel changes. There is no bowel obstruction. ABDOMINAL WALL: Small fat-containing umbilical hernia and small fat-containing bilateral inguinal hernias. LYMPH NODES: No abdominal or pelvic lymphadenopathy by size criteria. There are a few prominent bilateral inguinal lymph nodes measuring up to 8 mm short axis which are likely reactive. VASCULAR: Scattered atherosclerotic disease of the abdominal aorta and its branches. No aneurysm. PELVIC VISCERA: In the lower uterine body there is an indeterminate 1.1 cm hypodensity (81:7). It is uncertain if this is within the endometrium or myometrium. No adnexal lesions. Stable calcification in the right adnexa (61:3). OSSEOUS STRUCTURES: Unchanged mild compression deformity of T11. No aggressive osseous lesions. Multilevel degenerative changes of the visualized thoracolumbar spine. CT/CT abdomen pelvis wo con IMPRESSION: 1. Cholelithiasis without evidence of inflammatory changes or wall thickening to suspect acute cholecystitis. 2. Redemonstration of a nonobstructive 3 mm calculus in the lower pole left kidney. No hydronephrosis. 3. Small sliding hiatal hernia. No bowel obstruction or inflammatory bowel changes. Normal appendix. 4. Borderline urinary bladder wall thickening. Correlate clinically for cystitis. 5. Indeterminate hypodensity in the lower uterine body. Consider further evaluation with a dedicated pelvic ultrasound if clinically indicated.
--- NOTE | ~2021-06-27 | US_ITS ---
EXAMINATION: US ABDOMEN LIMITED CLINICAL INFORMATION: Evaluate for cholecystitis. Abdominal pain. COMPARISON: CT abdomen/pelvis done earlier today at 9:57 AM. TECHNIQUE: Real-time imaging of the right upper quadrant abdominal viscera. FINDINGS: There are are multiple hyperechoic and shadowing stones without evidence of gallbladder wall thickening (up to 2 mm), pericholecystic fluid nor hyperemia. The CBD measures 0.3 cm. US/US abdomen limited IMPRESSION: Cholelithiasis without sonographic evidence of acute cholecystitis.
--- NOTE | 2021-06-27 08:59 | ED_ITS ---
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 Mode of arrival: EMS Limitations: no limitations History of Present Illness MD elicited complaint: other (nausea and abdominal pain) Pertinent past history: none Onset (ago): hour(s) (12) Pain Consistency: intermittent Location: epigastric Severity: moderate Quality: cramping Radiation: none Migration to: no migration Exacerbating factors: eating Relieving factors: nothing Context: possible food poisoning (started after eating soup) Associated symptoms: nausea Related Data Home Medications Medication Instructions Recorded Confirmed amitriptyline 10 mg tablet 10 mg PO DAILY 08/02/20 06/27/21 omeprazole 10 mg capsule,delayed 10 mg PO DAILY 08/02/20 06/27/21 release sumatriptan succinate 50 mg tablet 50 mg PO Q2-4H PRN 08/02/20 06/27/21 acetaminophen 500 mg tablet 500 mg PO Q8H 06/27/21 06/27/21 albuterol sulfate 90 mcg/actuation 2 puff PO Q4-6H PRN 06/27/21 06/27/21 aerosol inhaler docusate sodium 100 mg capsule 1 cap PO BID 06/27/21 06/27/21 mirtazapine 30 mg tablet 1 tab PO BEDTIME 06/27/21 06/27/21 polyethylene glycol 3350 17 17 g PO DAILY 06/27/21 06/27/21 gram/dose oral powder sertraline 25 mg tablet 1 tab PO DAILY 06/27/21 06/27/21 tramadol 50 mg tablet 1 tab PO BID PRN 06/27/21 06/27/21 Previous Rx's Medication Instructions Recorded arm brace (Wrist Brace) #1 ea 08/09/20 aspirin 81 mg tablet,delayed 81 mg PO DAILY #90 tab 02/26/21 release (Adult Low Dose Aspirin) atorvastatin 40 mg tablet 40 mg PO DAILY #90 tab 02/26/21 metoprolol succinate 25 mg 25 mg PO DAILY #90 tab 02/26/21 tablet,extended release 24 hr ondansetron 4 mg disintegrating 4 mg PO Q8H PRN #20 tab 03/13/21 tablet ondansetron 4 mg disintegrating 4 mg PO Q8H PRN #20 tab 06/27/21 tablet Allergies Allergy/AdvReac Type Severity Reaction Status Date / Time No Known Allergies Allergy Unknown UNKNOWN Verified 02/06/21 14:31 [NO KNOWN ALLERGIES] Review of Systems Review of Systems Constitutional : No Weight loss, No Fever, No Chills ENT/Mouth : No sore throat, No Rhinorrhea Eyes: No Swelling, No Redness Cardiovascular : No Chest Pain, No SOB, NoEdema Respiratory : No Cough, No Sputum, No Wheezing Gastrointestinal : Positive Nausea, no Vomiting, no Diarrhea, positive abdominal Pain, No Hematochezia, No Melena Genitourinary : No Dysuria, No Urinary Frequency, No Hematuria, No Urgency Musculoskeletal : No joint pain, No Myalgias, No Joint Swelling Skin : No Skin Lesions, No rash Neuro : No Weakness, No Numbness, No Dizziness, No Headache Psych : No Anxiety/Panic, No Depression Heme/Lymph: No Bruising, No Lymphadenopathy Endocrine : No Polyuria, No Polydipsia All other systems reviewed and are negative. Physical Exam Vital Signs: Vital Signs: Last Vital Signs Temp 98.1 F 06/27/21 09:28 Pulse 61 06/27/21 09:28 Resp 16 06/27/21 09:28 BP 125/56 L 06/27/21 09:28 Pulse Ox 99 06/27/21 09:28 Body Mass Index 31.2 Appearance: Alert. Oriented X3. No acute distress. Eyes: Pupils equal, round and reactive to light. ENT: Pharynx normal. Neck: Normal inspection. Neck supple. CVS: Normal heart rate and rhythm. Pulses normal. Respiratory: No respiratory distress. Breath sounds normal. Abdomen: Soft and mild epigastric ttp no rebound or guarding. Skin: Skin warm and dry. Normal skin color. Normal skin turgor. Extremities: No lower extremity edema. No calf ttp Neuro: Oriented X 3. No motor deficit. No sensory deficit. Course Course Course Narrative: negative workup feels much better wants to go home US gallstones likely needs VNA MDM - Abdominal Pain MDM Narrative Medical decision making narrative: 80 yo female with HLD, HTN, CVA - vision changes, NSTEMI here with c/o nausea and epigastric pain after eating soup for dinner last night also notes no BM for 3 days will obtain labs, EKG, provide zofran, CT scan for obstruction, has no CP/SOB but given her age and risk facto rs EKG and trop ordered, dispo per results and findings. Differential Diagnosis Differential diagnosis: Likely abdominal pain, constipation, gastritis, pancreatitis and small bowel obstruction Lab Data Result diagrams: 06/27/21 09:25 06/27/21 09:25 Labs: Lab Results 06/27/21 06/27/21 06/27/21 Range/Units 09:25 09:25 09:25 WBC 8.9 (4.8-10.8) X10*3/uL RBC 4.18 L (4.20-5.50) X10*6/uL Hgb 13.5 (12.0-16.0) g/dl Hct 39.9 (37-47) % MCV 95.5 (80-98) fL MCH 32.3 (27.0-33.0) pg MCHC 33.8 (31.0-35.0) g/dl RDW 13.3 (11.0-16.0) % Plt Count 266 (160-400) X10*3/uL MPV 11.8 (9.4-12.3) fL Immature Gran % (Auto) 0.2 (0.0-0.4) % Neut % (Auto) 58.1 (45-73) % Lymph % (Auto) 30.2 (20-40) % [place] % (Auto) 9.7 (2-11) % Eos % (Auto) 1.2 (0-4) % Baso % (Auto) 0.6 (0-2) % Lymph # (Auto) 2.7 (1.2-4.9) X10*3/uL [place] # (Auto) 0.9 (0.1-1.2) X10*3/uL Eos # (Auto) 0.1 (0.0-0.4) X10*3/uL Baso # (Auto) 0.1 (0.0-0.2) X10*3/uL Abs Immat Gran (auto) 0.02 (0.00-0.03) X10*3/uL Absolute Neuts (auto) 5.2 (2.0-8.3) X10*3/uL Absolute Nucleated RBC 0.000 (0.0-0.012) X10*3/uL Nucleated RBC % (auto) 0.0 (0.0-0.2) /100WBC Sodium 138 (135-145) mmol/L Potassium 3.8 (3.3-5.1) mmol/L Chloride 106 (96-108) mmol/L Carbon Dioxide 24 (22-29) mmol/L Anion Gap 12 (12-20) BUN 10 (9-16) mg/dL Creatinine 0.71 (0.5-1.4) mg/dL Estim Creat Clear Calc 56.2 Estimated GFR > 60 Random Glucose 125 H (60-115) mg/dL Calcium 9.7 (8.4-10.2) mg/dL Magnesium 1.9 (1.6-2.6) mg/dL Total Bilirubin 0.6 (0.0-1.0) mg/dL Direct Bilirubin 0.3 (0.0-0.5) mg/dL AST 17 (5-31) U/L ALT 8 (0-31) U/L Alkaline Phosphatase 69 (39-117) U/L Troponin I High Sens 4.1 (<3.5-17.0) ng/L Total Protein 7.2 (6.5-8.0) g/dL Albumin 4.0 (3.5-5.0) g/dL Lipase 65 (8-78) U/L ECG Data Attestation: I personally reviewed and interpreted this ECG as follows: ECG interpretation date: 06/27/21 ECG interpretation time: 11:13 Interpretation: Rate: 58 Rhythm: sinus bradcardia [place]: left Normal P waves. Normal SATHYA. Normal QRS complex. ST T wave : normal no ALTA qTC: prolonged prior studies: no acute ischemia The study has been interpreted contemporaneously by me. . Discharge Plan Discharge Clinical Impression: Gallstones, Nausea Patient Disposition: Home, Self-Care Instructions: Gallstones (ED), Acute Nausea and Vomiting (ED) Additional Instructions: return to ED for any worsening symptoms or concerns Prescriptions: New ondansetron 4 mg tablet,disintegrating 4 mg PO Q8H PRN (Reason: nausea and vomiting) Qty: 20 RF: 0 No Action aspirin [Adult Low Dose Aspirin] 81 mg tablet,delayed release (DR/EC) 81 mg PO DAILY Qty: 90 RF: 3 atorvastatin 40 mg tablet 40 mg PO DAILY Qty: 90 RF: 3 metoprolol succinate 25 mg tablet extended release 24 hr 25 mg PO DAILY Qty: 90 RF: 1 tramadol 50 mg tablet 1 tab PO BID PRN (Reason: Insomnia) RF: 0 acetaminophen 500 mg tablet 500 mg PO Q8H RF: 0 mirtazapine 30 mg tablet 1 tab PO BEDTIME RF: 0 docusate sodium 100 mg capsule 1 cap PO BID RF: 0 sertraline 25 mg tablet 1 tab PO DAILY RF: 0 polyethylene glycol 3350 17 gram/dose powder 17 g PO DAILY RF: 0 albuterol sulfate 90 mcg/actuation HFA aerosol inhaler 2 puff PO Q4-6H PRN (Reason: Wheezing) RF: 0 ondansetron 4 mg tablet,disintegrating 4 mg PO Q8H PRN (Reason: nausea and vomiting) Qty: 20 RF: 0 amitriptyline 10 mg tablet 10 mg PO DAILY RF: 0 sumatriptan succinate 50 mg tablet 50 mg PO Q2-4H PRN (Reason: Migraine Headache) RF: 0 omeprazole 10 mg capsule,delayed release(DR/EC) 10 mg PO DAILY RF: 0 (DME) Wrist Brace Misc See Rx Instructions .MEDSUPPLY Qty: 1 RF: 0 Referrals: Edwin Biggs MD [Physician] - 1 week Print Language: [facility] Past Medical History Attestation statement: The following information was validated with the patient. Medical History Abnormal nuclear stress test Coronary artery disease CVA, old, disturbances of vision (~09/2019) Dementia HLD (hyperlipidemia) HTN (hypertension) NSTEMI (non-ST elevated myocardial infarction) Family History Family History Father No problems noted. Mother No problems noted. Social History Social History Alcohol intake: never Patient Tobacco Use Status: Never used Tobacco Years Smoked: Chews tobacco Use of substances other than those prescribed or required for medical reasons: No Advance Directives: No Advance Directives Information Provided: Yes
--- NOTE | 2021-06-27 09:10 | ECG_ITS ---
Test Reason : NAUSEA VOMIT Blood Pressure : / mmHG Vent. Rate : 058 BPM Atrial Rate : 058 BPM P-R Int : 138 ms QRS Dur : 082 ms QT Int : 490 ms P-R-T Axes : 043 -04 035 degrees QTc Int : 481 ms Sinus bradycardia Possible Lateral infarct (cited on or before 04-MAY-2020) Abnormal ECG When compared with ECG of 13-MAR-2021 10:36, No significant change was found Referred By: Yuliya Longo Electronically Signed By:ROSHNI YU
[2021-06-27 09:28] VITALS: BP 125/56; PULSE 61; RESP 16; TEMP 36.7; O2SAT 99; BMI 31.2
[2021-06-27 09:32] LABS: MANUAL DIFF FLAG NO
[2021-06-27 09:33] LABS: Basophils Absolute Auto 0.1 X10*3/uL (0.0-0.2); Basophils Percent Auto 0.6 % (0-2); Eosinophils Absolute Auto 0.1 X10*3/uL (0.0-0.4); Eosinophils Percent Auto 1.2 % (0-4); Hematocrit 39.9 % (37-47); Hemoglobin 13.5 g/dl (12.0-16.0); Imm Gran Abs Auto 0.02 X10*3/uL (0.00-0.03); Imm Gran Pct Auto 0.2 % (0.0-0.4); Lymphocytes Absolute Auto 2.7 X10*3/uL (1.2-4.9); Lymphocytes Percent Auto 30.2 % (20-40); Mean Corpuscular HGB Conc 33.8 g/dl (31.0-35.0); Mean Corpuscular Hemoglobin 32.3 pg (27.0-33.0); Mean Corpuscular Volume 95.5 fL (80-98); Mean Platelet Volume 11.8 fL (9.4-12.3); Monocytes Absolute Auto 0.9 X10*3/uL (0.1-1.2); Monocytes Percent Auto 9.7 % (2-11); Neutrophils Absolute Auto 5.2 X10*3/uL (2.0-8.3); Neutrophils Percent Auto 58.1 % (45-73); Platelet Count 266 X10*3/uL (160-400); Red Blood Count 4.18 X10*6/uL (4.20-5.50); Red Cell Distribution Width 13.3 % (11.0-16.0); White Blood Count 8.9 X10*3/uL (4.8-10.8)
[2021-06-27 09:50] LABS: Alanine Aminotransferase 8 U/L (0-31); Alkaline Phosphatase 69 U/L (39-117); Anion Gap 12 (12-20); Aspartate Amino Transferase 17 U/L (5-31); Bilirubin Direct 0.3 mg/dL (0.0-0.5); Bilirubin Total 0.6 mg/dL (0.0-1.0); Blood Urea Nitrogen 10 mg/dL (9-16); Calcium 9.7 mg/dL (8.4-10.2); Carbon Dioxide 24 mmol/L (22-29); Chloride 106 mmol/L (96-108); Creatinine Clr Calc Pharmacy 56.2; Estimated Glomerular Filt Rate > 60; Glucose Random 125 mg/dL (60-115); Lipase 65 U/L (8-78); Magnesium 1.9 mg/dL (1.6-2.6); Potassium 3.8 mmol/L (3.3-5.1); Sodium 138 mmol/L (135-145); Total Protein 7.2 g/dL (6.5-8.0)
[2021-06-27 09:59] LABS: Troponin-I High Sensitivity 4.1 ng/L (<3.5-17.0)
[2021-06-27] MEDS: ondansetron HCL 4 MG/2 ML VIAL IVPUSH (11:29)
--- NOTE | 2021-06-27 12:05 | PHA.MEDREC ---
Pharmacy Consult ? Medication Reconciliation Pharmacy has completed the medication reconciliation. Patient reports that she does not and to call her son. Patient's son unsure of medication and say anything filled at the pharmacy she has been taking. Cyndi Piper, PharmD
[2021-06-27 14:47] LABS: COVID-19 Test Negative (Negative)
--- NOTE | 2021-06-27 14:47 | MHC.CM.ED ---
Patient is in the ER due to abd pain. Patient's granddaughter, Marleen, is requesting more assistance at home. Patient is active with [facility]. T/W reached out to [facility] transitions of care RN, Juliana. Juliana will reach out to patient's lawn caretaker to assess for additional services. Continue to monitor for d/c needs.
== END 2021-06-27 15:11 | disposition home or self-care (01) ==
PROVIDERS: Emergency Provider Emergency Medicine; PCP Internal Medicine Geriatric Medicine
DX: K85.10 Biliary acute pancreatitis without necrosis or infection (principal); R10.9 Unspecified abdominal pain; R11.2 Nausea with vomiting, unspecified; Z20.822 Contact with and (suspected) exposure to COVID-19; Z79.899 Other long term (current) drug therapy
CPT/HCPCS: 36415; 74176; 76705; 80048; 80076; 83690; 83735; 84484; 85025; 87635; 93005; 96374; 99284; J2405

== ENCOUNTER → 2021-07-04 09:49 | Outpatient (BNVA) | payer MEDICARE, SELFPAY | PROVIDERS: PCP Internal Medicine Geriatric Medicine; Referring Provider Internal Medicine Geriatric Medicine; Visit Provider Surgery | DX: K80.20 Calculus of gallbladder without cholecystitis without obstruction (principal) | CPT/HCPCS: 99202 ==

== ENCOUNTER → 2021-09-18 10:19 | Outpatient (BNVA) | payer MEDICARE, SELFPAY | PROVIDERS: PCP Internal Medicine Geriatric Medicine; Referring Provider Internal Medicine Geriatric Medicine; Visit Provider Surgery | DX: K80.20 Calculus of gallbladder without cholecystitis without obstruction (principal) | CPT/HCPCS: 99212 ==

== ENCOUNTER 2021-10-14 14:57 | Emergency (ER) | payer MEDICARE, SELFPAY ==
--- NOTE | ~2021-10-14 | US_ITS ---
EXAMINATION: US ABDOMEN LIMITED CLINICAL INFORMATION: Nausea and vomiting.. COMPARISON: Previous CT of the abdomen and pelvis and limited abdominal ultrasound June 2021 TECHNIQUE: Real-time imaging of the gallbladder and common bile duct FINDINGS: The gallbladder is normal in size. There are gallstones in the gallbladder. Gallbladder wall is normal-appearing. There is no pericholecystic fluid. The echo technologist reports the patient is tender over the gallbladder. The common bile duct is normal in caliber measuring 0.4 to 0.5 cm. US/US abdomen limited IMPRESSION: Gallstones. No common bile duct dilatation.
--- NOTE | ~2021-10-14 | CT_ITS ---
EXAMINATION: CT ABDOMEN AND PELVIS WITH CONTRAST CLINICAL INFORMATION: Diffuse abdominal pain constipation. Nausea/vomiting. COMPARISON: 06/27/2021 TECHNIQUE: Multidetector volumetric images were obtained from the superior aspect of the liver through the pubic symphysis following administration 85 mL of Omnipaque 350 intravenous contrast. Sagittal and coronal reformatted images were obtained on the technologist's workstation. Oral contrast: No This CT examination was performed using dose optimization techniques as appropriate, variously including the following: *Automated exposure control *Adjustment of mA and/or kV according to patient size (this includes techniques or standardized protocols for targeted exams where dose is matched to indication/reason for exam; i.e. extremities or head) *Use of iterative reconstruction technique DLP: 470 mGy-cm FINDINGS: LUNG BASES: Mild dependent atelectasis. Small sliding-type hiatal hernia. Dense calcifications are present of the mitral valve. There are small calcifications at the aortic valve and atherosclerotic calcification of the coronary arteries. LIVER, GALLBLADDER, AND BILIARY TREE: The liver is normal in size, shape, and attenuation. Small focus of hypoattenuation near the falciform ligament is most consistent with aberrant venous inflow or focal fatty sparing. No suspicious hepatic lesions or biliary ductal dilatation. Multiple calcified gallstones are evident within the gallbladder. No gallbladder wall thickening or other findings of surrounding inflammation. Common bile duct is normal in caliber. PANCREAS: Unremarkable. SPLEEN: Unremarkable. ADRENAL GLANDS: Unremarkable. KIDNEYS AND URETERS: The kidneys are normal in size, shape, and attenuation. No hydronephrosis or hydroureter. No perinephric stranding. Bilateral extrarenal pelvises. A punctate nonobstructive calculus is again suspected within the left lower renal pole calyx, measuring approximately 2 mm in diameter. BLADDER: Unremarkable. GASTROINTESTINAL TRACT: Small sliding-type hiatal hernia. Stomach, small bowel, and colon are normal in caliber. Appendix is normal. There is a moderate volume of well-formed stool in the colon, most pronounced in the descending and sigmoid colon and the rectum. No appreciable bowel wall thickening or surrounding fat stranding to indicate a site of active inflammation. Submucosal fat deposition in the cecum and ascending colon are again noted. ABDOMINAL WALL: Small fat-containing umbilical hernia. No bowel involvement. Small bilateral fat-containing inguinal hernias. LYMPH NODES: Normal. VASCULAR: Atherosclerotic calcifications are present of the abdominal aorta and iliac arteries. No aneurysmal dilatation. PELVIC VISCERA: As seen on the prior study, there is an indeterminant hypodensity in the lower uterine segment measuring 1.1 cm in diameter, similar to prior. Punctate focus of gas is evident within the endometrial cavity. No adnexal lesions are identified. OSSEOUS STRUCTURES: Bones are osteopenic. Chronic superior endplate compression deformity at the level of T11 is unchanged as compared to prior. No acute osseous lesions. Mild osteoarthritis in the hips. CT/CT abdomen pelvis w con IMPRESSION: 1. No acute intra-abdominal or intrapelvic abnormalities are identified. Moderate volume of well-formed stool throughout the left hemicolon which correlates with the history of constipation. 2. Small sliding-type hiatal hernia. 3. Cholelithiasis without evidence of acute cholecystitis. 4. Indeterminant 1.1 cm hypodensity within the lower uterine segment is unchanged as compared to prior. Consider correlation with pelvic ultrasound if clinically indicated.
--- NOTE | ~2021-10-14 | XR_ITS ---
EXAMINATION: XR CHEST CLINICAL INFORMATION: Nausea, vomiting COMPARISON: Chest radiographs 02/27/2021, 03/19/2020, 03/24/2020; CT abdomen 06/27/2021 TECHNIQUE: 2 views of the chest were obtained. FINDINGS: There is mild coarsening of the bronchiolar markings which may be related to bronchitis. There is no hyperinflation. No airspace consolidation or groundglass opacity or effusion. The costophrenic sulci are clear. The cardiac and hilar and mediastinal contours and visualized bony structures are unremarkable. XR/XR chest 2V IMPRESSION: Coarsening bronchiolar markings which may related to bronchitis. Lungs grossly clear.
[2021-10-14 15:00] VITALS: BP 143/52; PULSE 93; RESP 18; TEMP 36.6; O2SAT 97; BMI 27.3
--- NOTE | 2021-10-14 15:36 | ECG_ITS ---
Test Reason : ABDOMINAL PAIN Blood Pressure : / mmHG Vent. Rate : 084 BPM Atrial Rate : 084 BPM P-R Int : 142 ms QRS Dur : 084 ms QT Int : 438 ms P-R-T Axes : 061 022 056 degrees QTc Int : 517 ms Normal sinus rhythm Possible Lateral infarct (cited on or before 04-MAY-2020) Prolonged QT Abnormal ECG When compared with ECG of 27-JUN-2021 11:08, No significant change was found Referred By: Kat Gomez Electronically Signed By:ABBY GRIMM
--- NOTE | 2021-10-14 16:12 | ED.NAVMDI ---
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 She reports that she is also constipated she reports that she has not had a bowel movement in a while. They were unable to state the length of time of no bowel movement. She denies any fevers that she is aware of, dizziness, headaches, neck pain/stiffness, trouble swallowing or breathing, chest pain or shortness of breath, dyspnea on exertion, orthopnea, palpitations, lower extremity edema or calf tenderness, recent antibiotic usage, black or bloody stools, black or bloody emesis, any bad food exposure, sick contacts, recent travel or any other symptoms complaints or concerns at this time. MD elicited complaint: nausea, vomiting, abdominal pain and other (And constipation) Onset (ago): day(s) (2) Description of vomiting: bilious Associated nausea: Yes Associated abdominal pain: Yes Location of pain: diffuse Radiation: does not radiate Pain consistency: constant Severity: severe Pain scale (0-10): 10 Quality: aching Exacerbating factors: none Relieving factors: none Associated symptoms: denies other symptoms Related Data Home Medications Medication Instructions Recorded Confirmed amitriptyline 10 mg tablet 10 mg PO DAILY 08/02/20 07/04/21 omeprazole 10 mg capsule,delayed 10 mg PO DAILY 08/02/20 07/04/21 release sumatriptan succinate 50 mg tablet 50 mg PO Q2-4H PRN 08/02/20 07/04/21 acetaminophen 500 mg tablet 500 mg PO Q8H 06/27/21 07/04/21 albuterol sulfate 90 mcg/actuation 2 puff PO Q4-6H PRN 06/27/21 07/04/21 aerosol inhaler docusate sodium 100 mg capsule 1 cap PO BID 06/27/21 07/04/21 mirtazapine 30 mg tablet 1 tab PO BEDTIME 06/27/21 07/04/21 polyethylene glycol 3350 17 17 g PO DAILY 06/27/21 07/04/21 gram/dose oral powder sertraline 25 mg tablet 1 tab PO DAILY 06/27/21 07/04/21 tramadol 50 mg tablet 1 tab PO BID PRN 06/27/21 07/04/21 trazodone 50 mg tablet 50 mg PO BEDTIME 09/18/21 Previous Rx's Medication Instructions Recorded arm brace (Wrist Brace) #1 ea 08/09/20 aspirin 81 mg tablet,delayed 81 mg PO DAILY #90 tab 02/26/21 release (Adult Low Dose Aspirin) atorvastatin 40 mg tablet 40 mg PO DAILY #90 tab 02/26/21 metoprolol succinate 25 mg 25 mg PO DAILY #90 tab 02/26/21 tablet,extended release 24 hr ondansetron 4 mg disintegrating 4 mg PO Q8H PRN #20 tab 03/13/21 tablet ondansetron 4 mg disintegrating 4 mg PO Q8H PRN #20 tab 06/27/21 tablet ibuprofen 200 mg tablet 200 mg PO Q6H PRN #30 tab 09/18/21 Allergies Allergy/AdvReac Type Severity Reaction Status Date / Time No Known Allergies Allergy Unknown UNKNOWN Verified 09/18/21 10:26 [NO KNOWN ALLERGIES] Review of Systems Review of Systems: Constitutional : No Fever, No Chills, No Night Sweats, No Fatigue, No Malaise Cardiovascular : No Chest Pain, No SOB Respiratory : No Cough, No Sputum, No Wheezing, No Dyspnea Gastrointestinal : + Nausea, + Vomiting, + abdominal Pain, + Constipation, No Hematochezia, No Melena, No Diarrhea Genitourinary : No irregular bleeding, No Dysuria, No Urinary Frequency, No Hematuria,No Urinary Incontinence, No Urgency, No Flank Pain Musculoskeletal : No joint pain, No Myalgias, No Joint Swelling Skin : No Skin Lesions, No rash Neuro : No Weakness, No Numbness, No Paresthesias, No Loss of Consciousness, No Dizziness, No Headache Heme/Lymph: No Lymphadenopathy Endocrine : No Temperature Intolerance Yes all other systems are reviewed and are negative Gastrointestinal: Gastrointestinal: Reports nausea PMFSH Past Medical History Attestation statement: The following information was validated with the patient. Medical History Abnormal nuclear stress test Coronary artery disease CVA, old, disturbances of vision (~09/2019) Dementia Gallstones HLD (hyperlipidemia) HTN (hypertension) NSTEMI (non-ST elevated myocardial infarction) Family History Family History Father No problems noted. Mother No problems noted. Social History Social History Alcohol intake: never Patient Tobacco Use Status: Never used Tobacco Years Smoked: Chews tobacco Advance Directives: No Advance Directives Information Provided: Yes Physical Exam Vital Signs: Vital Signs: Last Vital Signs Temp 97.8 F 10/14/21 15:00 Pulse 93 10/14/21 15:00 Resp 18 10/14/21 15:00 BP 143/52 H 10/14/21 15:00 Pulse Ox 97 10/14/21 15:00 BMI result Body Mass Index 27.3 vital signs have been reviewed as normal and appeared to be correct. Blood pressure 143/52. Heart rate normal. Respiration rate normal. Temperature normal. Oxygen saturation normal. Appearance: Alert. Demented at baseline. No acute distress. Head: Normal external exam. Normocephalic. Eyes: PERRLA. EOMI. Conjunctiva and sclera normal. Eyelids normal. ENT: Pharynx normal. Uvula midline. Moist mucous membranes. No trismus noted. No drooling noted. No muffled voice noted. Neck: Normal inspection. Neck supple. FROM. No adenopathy. No meningeal signs. CVS: Normal heart rate and rhythm. Heart sound normal. No murmurs noted. Pulses normal throughout. Respiratory: No respiratory distress. Painless inspiration. Breath sounds normal. No wheezes/rales/rhonchi noted. Chest nontender. No accessory muscle usage noted or decreased air movement noted. Abdomen: Soft and moderate tenderness diffusely. No point tenderness is noted. Although patient has guarding on exam. No rigidity. Bowel sounds normal in all 4 quadrants. No distention noted. No organomegaly noted. No visible injury noted. No rebound tenderness. Negative Rovsing sign. Negative obturator's sign. Negative psoas sign. Negative Shepard sign. Back: No CVA tenderness. Full range of motion noted. Skin: Skin warm and dry. Normal skin color. Normal skin turgor. No rashes/lesions/lacerations noted. Extremities: No lower extremity edema or calf tenderness is noted. Extremities exhibit normal range of motion. Extremities nontender. Neuro: Alert and demented at baseline. No motor deficit. No sensory deficit. Reflexes normal. Normal steady gait. 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 She reports that she is also constipated she reports that she has not had a bowel movement in a while. Plan: Labs, CT scan abdomen pelvis with IV contrast, chest x-ray, limited abdominal ultrasound of gallbladder, EKG. Provide a L of IV fluids provide 4 mg of Zofran and re-evaluate. Reevaluation(s) Reevaluation #1: - labs returned and patient's random glucose 211. Troponin 4.7. Otherwise all other labs are within normal limits. Patient is COVID positive. - chest x-ray revealed coursing bronchiolar markings which may related to bronchitis. Lungs grossly clear. - abdominal ultrasound revealed gallstones not consistent with acute cholecystitis - patient will need a repeat troponin. - pending CT scan of abdomen and pelvis with IV contrast will re-evaluate. Sign out to BABAK Johnston pending above. - I attempted to call the patient's family multiple times and no answer. at [phone] and [phone] and [phone] to inform about positive culture results. Time: 17:07 MDM - Nausea/Vomiting/Diarrhea Medical Records Attestation: I reviewed the patient's medical records. Lab Data Attestation: I reviewed the patient's lab results. Result diagrams: 10/14/21 16:31 10/14/21 16:31 Labs: Lab Results 10/14/21 10/14/21 10/14/21 Range/Units 16:31 16:31 16:31 WBC 10.8 (4.8-10.8) X10*3/uL RBC 4.10 L (4.20-5.50) X10*6/uL Hgb 13.4 (12.0-16.0) g/dl Hct 40.2 (37.0-47.0) % MCV 98.0 (80.0-98.0) fL MCH 32.7 (27.0-33.0) pg MCHC 33.3 (31.0-35.0) g/dl RDW 13.2 (11.0-16.0) % Plt Count 265 (160-400) X10*3/uL MPV 11.6 (9.4-12.3) fL Immature Gran % (Auto) 0.5 H (0.0-0.4) % Neut % (Auto) 87.4 H (45-73) % Lymph % (Auto) 5.0 L (20-40) % Izard % (Auto) 6.5 (2-11) % Eos % (Auto) 0.1 (0-4) % Baso % (Auto) 0.5 (0-2) % Lymph # (Auto) 0.5 L (1.2-4.9) X10*3/uL Izard # (Auto) 0.7 (0.1-1.2) X10*3/uL Eos # (Auto) 0.0 (0.0-0.4) X10*3/uL Baso # (Auto) 0.1 (0.0-0.2) X10*3/uL Abs Immat Gran (auto) 0.05 H (0.00-0.03) X10*3/uL Absolute Neuts (auto) 9.4 H (2.0-8.3) x10*3/uL Absolute Nucleated RBC 0.000 (0.0-0.012) X10*3/uL Nucleated RBC % (auto) 0.0 (0.0-0.2) /100WBC PT 12.7 (9.9-13.0) SEC INR 1.1 (0.9-1.1) Sodium 141 (135-145) mmol/L Potassium 4.1 (3.3-5.1) mmol/L Chloride 102 (96-108) mmol/L Carbon Dioxide 27 (22-29) mmol/L Anion Gap 16 (12-20) BUN 16 (9-16) mg/dL Creatinine 0.80 (0.5-1.4) mg/dL Estim Creat Clear Calc 48.6 Estimated GFR > 60 Random Glucose 211 H (60-115) mg/dL Calcium 9.9 (8.4-10.2) mg/dL Magnesium 1.9 (1.6-2.6) mg/dL Total Bilirubin 0.2 (0.0-1.0) mg/dL AST 22 (5-31) U/L ALT 14 (0-31) U/L Alkaline Phosphatase 84 D (39-117) U/L Troponin I High Sens (<3.5-17.0) ng/L B-Natriuretic Peptide (<100) pg/mL Total Protein 7.9 (6.5-8.0) g/dL Albumin 4.1 (3.5-5.0) g/dL Lipase 20 (8-78) U/L COVID-19 (TC) (Negative) COVID-19 Clin Com 10/14/21 10/14/21 Range/Units 16:31 16:31 WBC (4.8-10.8) X10*3/uL RBC (4.20-5.50) X10*6/uL Hgb (12.0-16.0) g/dl Hct (37.0-47.0) % MCV (80.0-98.0) fL MCH (27.0-33.0) pg MCHC (31.0-35.0) g/dl RDW (11.0-16.0) % Plt Count (160-400) X10*3/uL MPV (9.4-12.3) fL Immature Gran % (Auto) (0.0-0.4) % Neut % (Auto) (45-73) % Lymph % (Auto) (20-40) % Izard % (Auto) (2-11) % Eos % (Auto) (0-4) % Baso % (Auto) (0-2) % Lymph # (Auto) (1.2-4.9) X10*3/uL Izard # (Auto) (0.1-1.2) X10*3/uL Eos # (Auto) (0.0-0.4) X10*3/uL Baso # (Auto) (0.0-0.2) X10*3/uL Abs Immat Gran (auto) (0.00-0.03) X10*3/uL Absolute Neuts (auto) (2.0-8.3) x10*3/uL Absolute Nucleated RBC (0.0-0.012) X10*3/uL Nucleated RBC % (auto) (0.0-0.2) /100WBC PT (9.9-13.0) SEC INR (0.9-1.1) Sodium (135-145) mmol/L Potassium (3.3-5.1) mmol/L Chloride (96-108) mmol/L Carbon Dioxide (22-29) mmol/L Anion Gap (12-20) BUN (9-16) mg/dL Creatinine (0.5-1.4) mg/dL Estim Creat Clear Calc Estimated GFR Random Glucose (60-115) mg/dL Calcium (8.4-10.2) mg/dL Magnesium (1.6-2.6) mg/dL Total Bilirubin (0.0-1.0) mg/dL AST (5-31) U/L ALT (0-31) U/L Alkaline Phosphatase (39-117) U/L Troponin I High Sens 4.7 (<3.5-17.0) ng/L B-Natriuretic Peptide 64 (<100) pg/mL Total Protein (6.5-8.0) g/dL Albumin (3.5-5.0) g/dL Lipase (8-78) U/L COVID-19 (TC) Positive A (Negative) COVID-19 Clin Com See Note Imaging Data Chest x-ray: Attestation: I personally reviewed and interpreted this imaging study as follows: Radiologist's impression: FINDINGS: There is mild coarsening of the bronchiolar markings which may be related to bronchitis. There is no hyperinflation. No airspace consolidation or groundglass opacity or effusion. The costophrenic sulci are clear. The cardiac and hilar and mediastinal contours and visualized bony structures are unremarkable. XR/XR chest 2V IMPRESSION: Coarsening bronchiolar markings which may related to bronchitis. Lungs grossly clear. Limited abdominal ultrasound: Attestation: I personally reviewed and interpreted this imaging study as follows: Radiologist's impression: FINDINGS: The gallbladder is normal in size. There are gallstones in the gallbladder. Gallbladder wall is normal-appearing. There is no pericholecystic fluid. The creative technologist reports the patient is tender over the gallbladder. The common bile duct is normal in caliber measuring 0.4 to 0.5 cm. US/US abdomen limited IMPRESSION: Gallstones. No common bile duct dilatation. ECG Data Attestation: I personally reviewed and interpreted this ECG as follows: ECG interpretation date: 10/14/21 ECG interpretation time: 03:44 Interpretation: Normal sinus rhythm with a ventricular rate of 84 with prolonged QT at [address] abnormalities no acute ischemic changes are noted. Similar compared to prior EKG 06/27/2021. Critical Care Time Critical Care Time Critical Care Time: Yes Total Critical Care Time: 60 Attestation: I personally attest to this time spent taking care of the patient Discharge Plan Discharge Clinical Impression: Nausea & vomiting, Constipation, Abdominal pain, COVID-19 Patient Disposition: Still a Patient Prescriptions: No Action aspirin [Adult Low Dose Aspirin] 81 mg tablet,delayed release (DR/EC) 81 mg PO DAILY Qty: 90 RF: 3 atorvastatin 40 mg tablet 40 mg PO DAILY Qty: 90 RF: 3 metoprolol succinate 25 mg tablet extended release 24 hr 25 mg PO DAILY Qty: 90 RF: 1 tramadol 50 mg tablet 1 tab PO BID PRN (Reason: Insomnia) RF: 0 acetaminophen 500 mg tablet 500 mg PO Q8H RF: 0 mirtazapine 30 mg tablet 1 tab PO BEDTIME RF: 0 docusate sodium 100 mg capsule 1 cap PO BID RF: 0 sertraline 25 mg tablet 1 tab PO DAILY RF: 0 polyethylene glycol 3350 17 gram/dose powder 17 g PO DAILY RF: 0 albuterol sulfate 90 mcg/actuation HFA aerosol inhaler 2 puff PO Q4-6H PRN (Reason: Wheezing) RF: 0 ondansetron 4 mg tablet,disintegrating 4 mg PO Q8H PRN (Reason: nausea and vomiting) Qty: 20 RF: 0 ondansetron 4 mg tablet,disintegrating 4 mg PO Q8H PRN (Reason: nausea and vomiting) Qty: 20 RF: 0 amitriptyline 10 mg tablet 10 mg PO DAILY RF: 0 sumatriptan succinate 50 mg tablet 50 mg PO Q2-4H PRN (Reason: Migraine Headache) RF: 0 omeprazole 10 mg capsule,delayed release(DR/EC) 10 mg PO DAILY RF: 0 (DME) Wrist Brace Misc See Rx Instructions .MEDSUPPLY Qty: 1 RF: 0 trazodone 50 mg tablet 50 mg PO BEDTIME RF: 0 ibuprofen 200 mg tablet 200 mg PO Q6H PRN (Reason: pain) Qty: 30 RF: 0
[2021-10-14 16:38] LABS: MANUAL DIFF FLAG NO
[2021-10-14 16:41] LABS: Basophils Absolute Auto 0.1 X10*3/uL (0.0-0.2); Basophils Percent Auto 0.5 % (0-2); Eosinophils Percent Auto 0.1 % (0-4); Hematocrit 40.2 % (37.0-47.0); Hemoglobin 13.4 g/dl (12.0-16.0); Imm Gran Abs Auto 0.05 X10*3/uL (0.00-0.03); Imm Gran Pct Auto 0.5 % (0.0-0.4); Lymphocytes Absolute Auto 0.5 X10*3/uL (1.2-4.9); Mean Corpuscular HGB Conc 33.3 g/dl (31.0-35.0); Mean Corpuscular Hemoglobin 32.7 pg (27.0-33.0); Mean Platelet Volume 11.6 fL (9.4-12.3); Monocytes Absolute Auto 0.7 X10*3/uL (0.1-1.2); Monocytes Percent Auto 6.5 % (2-11); Neutrophils Absolute Auto 9.4 x10*3/uL (2.0-8.3); Neutrophils Percent Auto 87.4 % (45-73); Platelet Count 265 X10*3/uL (160-400); Red Cell Distribution Width 13.2 % (11.0-16.0); White Blood Count 10.8 X10*3/uL (4.8-10.8)
[2021-10-14 16:47] LABS: INTERNATIONAL NORM RATIO 1.1 (0.9-1.1); Prothrombin Time 12.7 SEC (9.9-13.0)
[2021-10-14 16:52] LABS: COVID-19 Test Positive (Negative)
[2021-10-14 16:55] LABS: Alanine Aminotransferase 14 U/L (0-31); Albumin Level 4.1 g/dL (3.5-5.0); Alkaline Phosphatase 84 U/L (39-117); Anion Gap 16 (12-20); Aspartate Amino Transferase 22 U/L (5-31); Bilirubin Total 0.2 mg/dL (0.0-1.0); Blood Urea Nitrogen 16 mg/dL (9-16); Calcium 9.9 mg/dL (8.4-10.2); Carbon Dioxide 27 mmol/L (22-29); Chloride 102 mmol/L (96-108); Creatinine Clr Calc Pharmacy 48.6; Estimated Glomerular Filt Rate > 60; Glucose Random 211 mg/dL (60-115); Lipase 20 U/L (8-78); Magnesium 1.9 mg/dL (1.6-2.6); Potassium 4.1 mmol/L (3.3-5.1); Sodium 141 mmol/L (135-145); Total Protein 7.9 g/dL (6.5-8.0)
[2021-10-14 16:59] LABS: B Type Natriuretic Peptide 64 pg/mL (<100); Troponin-I High Sensitivity 4.7 ng/L (<3.5-17.0)
[2021-10-14] MEDS: 0.9 % Sodium Chloride 1,000 ML 999 ML IVCONT (17:03)
[2021-10-14 18:00] VITALS: PULSE 78; RESP 18; O2SAT 97
[2021-10-14] MEDS: iohexoL 350 MG/ML 100 ML INFUS..BTL 85 ML IV (19:12)
--- NOTE | 2021-10-14 20:15 | PC.NURSE ---
repeat troponin being drawn at this time.
[2021-10-14] MEDS: Sodium Phosphate,Mono-Dibasic 133 ML ENEMA PR (20:37)
[2021-10-14 20:43] LABS: Troponin-I High Sensitivity 6.8 ng/L (<3.5-17.0)
== END 2021-10-14 22:56 | disposition home or self-care (01) ==
PROVIDERS: Nurse Practitioner Family; Physician Assistant Medical; Emergency Provider Emergency Medicine
DX: U07.1 COVID-19 (principal); R11.2 Nausea with vomiting, unspecified; K59.00 Constipation, unspecified; K80.20 Calculus of gallbladder without cholecystitis without obstruction; N20.0 Calculus of kidney; K42.9 Umbilical hernia without obstruction or gangrene; K40.90 Unilateral inguinal hernia, without obstruction or gangrene, not specified as recurrent; E78.5 Hyperlipidemia, unspecified; I10 Essential (primary) hypertension; Z86.73 Personal history of transient ischemic attack (TIA), and cerebral infarction without residual deficits; Z79.82 Long term (current) use of aspirin; Z79.02 Long term (current) use of antithrombotics/antiplatelets; Z79.899 Other long term (current) drug therapy
CPT/HCPCS: 36415; 71046; 74177; 76705; 80053; 83690; 83735; 83880; 84484; 85025; 85610; 87635; 93005; 96361; 96374; 99285; 99291; Q9967

== ENCOUNTER 2022-03-01 09:46 | Outpatient (REF) | payer OTHER, SELFPAY ==
--- NOTE | ~2022-03-01 | XR_ITS ---
EXAMINATION: XR SHOULDER, RIGHT CLINICAL INFORMATION: Right shoulder pain. COMPARISON: 02/27/2021. TECHNIQUE: Three views of the right shoulder. FINDINGS: There is mild narrowing of the glenohumeral joint. There is prominent spurring present about the humeral head. No evidence of calcific tendinitis. No widening of the coracoclavicular space. No significant degenerative change of the right acromioclavicular joint. XR/XR shoulder RT min 2V IMPRESSION: Degenerative change of the right glenohumeral joint without evidence of acute fracture or calcific tendinitis.
[2022-03-01 10:07] LABS: MANUAL DIFF FLAG NO
[2022-03-01 11:14] LABS: Basophils Absolute Auto 0.1 X10*3/uL (0.0-0.2); Basophils Percent Auto 0.8 % (0-2); Eosinophils Absolute Auto 0.3 X10*3/uL (0.0-0.4); Eosinophils Percent Auto 4.4 % (0-4); Hematocrit 45.2 % (37.0-47.0); Hemoglobin 14.7 g/dl (12.0-16.0); Imm Gran Abs Auto 0.04 X10*3/uL (0.00-0.03); Imm Gran Pct Auto 0.5 % (0.0-0.4); Lymphocytes Absolute Auto 3.2 X10*3/uL (1.2-4.9); Lymphocytes Percent Auto 41.4 % (20-40); Mean Corpuscular HGB Conc 32.5 g/dl (31.0-35.0); Mean Corpuscular Hemoglobin 33.3 pg (27.0-33.0); Mean Corpuscular Volume 102.3 fL (80.0-98.0); Mean Platelet Volume 11.8 fL (9.4-12.3); Monocytes Absolute Auto 0.8 X10*3/uL (0.1-1.2); Monocytes Percent Auto 10.7 % (2-11); Neutrophils Absolute Auto 3.3 x10*3/uL (2.0-8.3); Neutrophils Percent Auto 42.2 % (45-73); Platelet Count 276 X10*3/uL (160-400); Red Blood Count 4.42 X10*6/uL (4.20-5.50); Red Cell Distribution Width 14.4 % (11.0-16.0); White Blood Count 7.8 X10*3/uL (4.8-10.8)
[2022-03-01 11:42] LABS: Alanine Aminotransferase 17 U/L (0-31); Albumin Level 4.1 g/dL (3.5-5.0); Alkaline Phosphatase 96 U/L (39-117); Anion Gap 12 (12-20); Aspartate Amino Transferase 27 U/L (5-31); Bilirubin Total 0.4 mg/dL (0.0-1.0); Blood Urea Nitrogen 14 mg/dL (9-16); Calcium 9.6 mg/dL (8.4-10.2); Carbon Dioxide 26 mmol/L (22-29); Chloride 107 mmol/L (96-108); Cholesterol 213 mg/dL; Estimated Glomerular Filt Rate > 60; Glucose Random 100 mg/dL (60-115); HDL Cholesterol 33 mg/dL; LDL Cholesterol Calculated 147 mg/dl; Potassium 4.4 mmol/L (3.3-5.1); Sodium 141 mmol/L (135-145); Total Protein 7.9 g/dL (6.5-8.0); Triglycerides 165 mg/dL
[2022-03-01 12:06] LABS: Thyroid Stimulating Hormone 1.55 uIU/mL (0.32-4.0); Vitamin D 25-OH Total 18.8 ng/mL (>30)
== END 2022-03-01 09:47 | disposition home or self-care (01) ==
LOC: HO.LAB 09:46
PROVIDERS: PCP Internal Medicine Geriatric Medicine; Visit Provider Internal Medicine Geriatric Medicine
DX: G89.29 Other chronic pain (principal); M25.511 Pain in right shoulder; I25.10 Atherosclerotic heart disease of native coronary artery without angina pectoris; R63.0 Anorexia; Z79.899 Other long term (current) drug therapy
CPT/HCPCS: 36415; 73030; 80053; 80061; 82306; 84443; 85025

== ENCOUNTER 2022-03-13 22:20 | Emergency (ER) | payer OTHER, SELFPAY ==
--- NOTE | ~2022-03-13 | XR_ITS ---
EXAMINATION: XR KNEE, LEFT XR WRIST, RIGHT CLINICAL INFORMATION: Fall. Pain. COMPARISON: None TECHNIQUE: 4 views of the left knee. 3 views of the right wrist FINDINGS: Left knee: No acute fracture or dislocation. Mild medial lateral tibiofemoral compartment joint space narrowing and associated subchondral sclerosis. Small marginal osteophytes along the lateral tibiofemoral and patellofemoral compartments. No knee joint effusion. Right wrist: Acute obliquely oriented/spiral fracture of the distal ulnar diaphysis with one half shaft width radial displacement. Healed fracture deformity of the distal radial metaphysis with chronic residual dorsal angulation of the distal radial articular surface. Chronic nonunited ulnar styloid avulsion fracture with minimal displacement. Chronic deformity of the fifth metacarpal head, likely posttraumatic. Degenerative changes of the first metacarpal phalangeal joint and first CMC joint. Bones are demineralized. XR/XR hand wrist RT IMPRESSION: Left knee: No acute fracture or dislocation. Right wrist: Acute moderately displaced distal ulnar diaphyseal fracture.
--- NOTE | ~2022-03-13 | XR_ITS ---
EXAMINATION: XR KNEE, LEFT XR WRIST, RIGHT CLINICAL INFORMATION: Fall. Pain. COMPARISON: None TECHNIQUE: 4 views of the left knee. 3 views of the right wrist FINDINGS: Left knee: No acute fracture or dislocation. Mild medial lateral tibiofemoral compartment joint space narrowing and associated subchondral sclerosis. Small marginal osteophytes along the lateral tibiofemoral and patellofemoral compartments. No knee joint effusion. Right wrist: Acute obliquely oriented/spiral fracture of the distal ulnar diaphysis with one half shaft width radial displacement. Healed fracture deformity of the distal radial metaphysis with chronic residual dorsal angulation of the distal radial articular surface. Chronic nonunited ulnar styloid avulsion fracture with minimal displacement. Chronic deformity of the fifth metacarpal head, likely posttraumatic. Degenerative changes of the first metacarpal phalangeal joint and first CMC joint. Bones are demineralized. XR/XR knee LT 3V IMPRESSION: Left knee: No acute fracture or dislocation. Right wrist: Acute moderately displaced distal ulnar diaphyseal fracture.
[2022-03-13 22:39] VITALS: BP 138/70; PULSE 72; RESP 18; TEMP 37.4; O2SAT 97; BMI 28.3
[2022-03-14 01:46] VITALS: BP 145/65; PULSE 54; RESP 16; TEMP 36.7; O2SAT 97
--- NOTE | 2022-03-14 02:11 | ED_ITS ---
HPI - Extremity Injury (Upper) General Chief Complaint: Fall Stated Complaint: fall/arm pain/knee scrape Time Seen by Provider: 03/14/22 02:09 Source: patient Mode of arrival: ambulatory Limitations: no limitations History of Present Illness HPI narrative: Patient brought by family for a mechanical fall earlier today tripped while coming to the house landed on her right hand comes with pain in the right forearm. No head injury no loss of consciousness also patient had pain on the left knee with abrasion. Apparently patient fell yesterday also now she is saying she was feeling dizzy when she fell. Patient poor historian exact cause of fall is not clear. Patient's son was nearby when patient yelled with pain her son came and checked her out. No change in sensorium per family. Also apparently patient fell yesterday also. Patient does not use any walker or cane no head injury no loss of consciousness Related Data Home Medications Medication Instructions Recorded Confirmed amitriptyline 10 mg tablet 10 mg PO DAILY 08/02/20 07/04/21 omeprazole 10 mg capsule,delayed 10 mg PO DAILY 08/02/20 07/04/21 release sumatriptan succinate 50 mg tablet 50 mg PO Q2-4H PRN Migraine 08/02/20 07/04/21 Headache acetaminophen 500 mg tablet 500 mg PO Q8H 06/27/21 07/04/21 albuterol sulfate 90 mcg/actuation 2 puff PO Q4-6H PRN Wheezing 06/27/21 07/04/21 aerosol inhaler docusate sodium 100 mg capsule 1 cap PO BID 06/27/21 07/04/21 mirtazapine 30 mg tablet 1 tab PO BEDTIME 06/27/21 07/04/21 polyethylene glycol 3350 17 17 g PO DAILY 06/27/21 07/04/21 gram/dose oral powder sertraline 25 mg tablet 1 tab PO DAILY 06/27/21 07/04/21 tramadol 50 mg tablet 1 tab PO BID PRN Insomnia 06/27/21 07/04/21 trazodone 50 mg tablet 50 mg PO BEDTIME 09/18/21 Previous Rx's Medication Instructions Recorded arm brace (Wrist Brace) #1 ea 08/09/20 aspirin 81 mg tablet,delayed 81 mg PO DAILY #90 tabs 02/26/21 release (Adult Low Dose Aspirin) atorvastatin 40 mg tablet 40 mg PO DAILY #90 tabs 02/26/21 metoprolol succinate 25 mg 25 mg PO DAILY #90 tabs 02/26/21 tablet,extended release 24 hr ondansetron 4 mg disintegrating 4 mg PO Q8H PRN nausea and 03/13/21 tablet vomiting #20 tabs ondansetron 4 mg disintegrating 4 mg PO Q8H PRN nausea and 06/27/21 tablet vomiting #20 tabs ibuprofen 200 mg tablet 200 mg PO Q6H PRN pain #30 tabs 09/18/21 acetaminophen 300 mg-codeine 30 mg 1 tab PO Q8H PRN pain #20 tabs 03/14/22 tablet cefuroxime axetil 250 mg tablet 250 mg PO BID 7 days #14 tabs 03/14/22 Allergies Allergy/AdvReac Type Severity Reaction Status Date / Time No Known Allergies Allergy Unknown UNKNOWN Verified 03/13/22 22:38 [NO KNOWN ALLERGIES] Review of Systems Review of Systems: Yes all other systems are reviewed and are negative [facility] Past Medical History Medical History Abnormal nuclear stress test Coronary artery disease CVA, old, disturbances of vision (~09/2019) Dementia Gallstones HLD (hyperlipidemia) HTN (hypertension) NSTEMI (non-ST elevated myocardial infarction) Family History Family History Father No problems noted. Mother No problems noted. Social History Social History Alcohol intake: never Patient Tobacco Use Status: Never used Tobacco Years Smoked: Chews tobacco Advance Directives: No Advance Directives Information Provided: Yes Physical Exam Vital Signs: Vital Signs: Last Vital Signs Temp 98.1 F 03/14/22 01:46 Pulse 59 03/14/22 06:12 Resp 18 03/14/22 06:12 BP 155/87 H 03/14/22 06:12 Pulse Ox 96 03/14/22 06:12 O2 Del Method 03/14/22 06:12 BMI result Body Mass Index 28.3 Appearance: Alert. Oriented X3. No acute distress. Eyes: PERRLA, No Nystagmus ENT: Pharynx normal. Oral Mucosa moist Neck: Normal inspection. Neck supple. CVS: Normal heart rate and rhythm. Pulses normal. Respiratory: No respiratory distress. Equal air entry bilateral, no wheezing/rales/rhonchi Abdomen: Soft and nontender. Bowel sounds are present, no mass palpable, no CVA tenderness Skin: Skin warm and dry. Normal skin color. Normal skin turgor. Extremities: No lower extremity edema. No calf tenderness local tenderness right distal forearm with slight swelling neurovascular intact Neuro: Oriented X 3. No motor deficit. No sensory deficit.No cerebellar signs , cranial nerves II-XII intact MDM - Extremity Injury (Upper) MDM Narrative Medical decision making narrative: Patient with mechanical fall with questionable dizziness prior to fall patient fell yesterday also. No head injury no headache. Orthostatics normal Lab Data Attestation: I reviewed the patient's lab results. Result diagrams: 03/14/22 03:24 03/14/22 03:24 Labs: Lab Results 03/14/22 03/14/22 03/14/22 Range/Units 03:24 03:24 03:24 WBC 11.4 H (4.8-10.8) X10*3/uL RBC 4.08 L (4.20-5.50) X10*6/uL Hgb 13.2 (12.0-16.0) g/dl Hct 40.3 (37.0-47.0) % MCV 98.8 H (80.0-98.0) fL MCH 32.4 (27.0-33.0) pg MCHC 32.8 (31.0-35.0) g/dl RDW 13.7 (11.0-16.0) % Plt Count 264 (160-400) X10*3/uL MPV 11.4 (9.4-12.3) fL Immature Gran % (Auto) 0.3 (0.0-0.4) % Neut % (Auto) 44.3 L (45-73) % Lymph % (Auto) 41.6 H (20-40) % [place] % (Auto) 10.7 (2-11) % Eos % (Auto) 2.7 (0-4) % Baso % (Auto) 0.4 (0-2) % Lymph # (Auto) 4.7 (1.2-4.9) X10*3/uL [place] # (Auto) 1.2 (0.1-1.2) X10*3/uL Eos # (Auto) 0.3 (0.0-0.4) X10*3/uL Baso # (Auto) 0.1 (0.0-0.2) X10*3/uL Abs Immat Gran (auto) 0.03 (0.00-0.03) X10*3/uL Absolute Neuts (auto) 5.0 (2.0-8.3) x10*3/uL Absolute Nucleated RBC 0.000 (0.0-0.012) X10*3/uL Nucleated RBC % (auto) 0.0 (0.0-0.2) /100WBC Sodium 139 (135-145) mmol/L Potassium 5.4 H D (3.3-5.1) mmol/L Chloride 105 (96-108) mmol/L Carbon Dioxide 26 (22-29) mmol/L Anion Gap 13 (12-20) BUN 11 (9-16) mg/dL Creatinine 0.74 (0.5-1.4) mg/dL Estim Creat Clear Calc 50.4 Estimated GFR > 60 Random Glucose 113 (60-115) mg/dL Calcium 9.4 (8.4-10.2) mg/dL Total Bilirubin 0.2 (0.0-1.0) mg/dL AST 27 (5-31) U/L ALT 18 (0-31) U/L Alkaline Phosphatase 94 (39-117) U/L Troponin I High Sens 4.0 (<3.5-17.0) ng/L Total Protein 7.6 (6.5-8.0) g/dL Albumin 4.0 (3.5-5.0) g/dL Urine Color Urine Appearance Urine pH (5.0-8.0) Ur Specific [place] (1.005-1.025) Urine Protein (NEG-TRACE) MG/DL Urine Glucose (UA) (NEG) MG/DL Urine Ketones (NEG) MG/DL Urine Blood (NEG) Urine Nitrite (NEG) Ur Leukocyte Esterase (NEG) Urine RBC (0) /HPF Urine WBC (0-4) /HPF Ur Squamous Epith Cells /LPF Triple Phos Crystals /LPF Urine Bacteria /LPF Urine Mucus /LPF Urine Yeast /HPF 03/14/22 Range/Units 03:51 WBC (4.8-10.8) X10*3/uL RBC (4.20-5.50) X10*6/uL Hgb (12.0-16.0) g/dl Hct (37.0-47.0) % MCV (80.0-98.0) fL MCH (27.0-33.0) pg MCHC (31.0-35.0) g/dl RDW (11.0-16.0) % Plt Count (160-400) X10*3/uL MPV (9.4-12.3) fL Immature Gran % (Auto) (0.0-0.4) % Neut % (Auto) (45-73) % Lymph % (Auto) (20-40) % [place] % (Auto) (2-11) % Eos % (Auto) (0-4) % Baso % (Auto) (0-2) % Lymph # (Auto) (1.2-4.9) X10*3/uL [place] # (Auto) (0.1-1.2) X10*3/uL Eos # (Auto) (0.0-0.4) X10*3/uL Baso # (Auto) (0.0-0.2) X10*3/uL Abs Immat Gran (auto) (0.00-0.03) X10*3/uL Absolute Neuts (auto) (2.0-8.3) x10*3/uL Absolute Nucleated RBC (0.0-0.012) X10*3/uL Nucleated RBC % (auto) (0.0-0.2) /100WBC Sodium (135-145) mmol/L Potassium (3.3-5.1) mmol/L Chloride (96-108) mmol/L Carbon Dioxide (22-29) mmol/L Anion Gap (12-20) BUN (9-16) mg/dL Creatinine (0.5-1.4) mg/dL Estim Creat Clear Calc Estimated GFR Random Glucose (60-115) mg/dL Calcium (8.4-10.2) mg/dL Total Bilirubin (0.0-1.0) mg/dL AST (5-31) U/L ALT (0-31) U/L Alkaline Phosphatase (39-117) U/L Troponin I High Sens (<3.5-17.0) ng/L Total Protein (6.5-8.0) g/dL Albumin (3.5-5.0) g/dL Urine Color YELLOW Urine Appearance TURBID Urine pH 7.5 (5.0-8.0) Ur Specific [place] 1.020 (1.005-1.025) Urine Protein NEG (NEG-TRACE) MG/DL Urine Glucose (UA) NEG (NEG) MG/DL Urine Ketones NEG (NEG) MG/DL Urine Blood NEG (NEG) Urine Nitrite POS H (NEG) Ur Leukocyte Esterase 1+ H (NEG) Urine RBC 0-2 (0) /HPF Urine WBC 1-4 (0-4) /HPF Ur Squamous Epith Cells 3+ /LPF Triple Phos Crystals 2+ /LPF Urine Bacteria 3+ /LPF Urine Mucus 2+ /LPF Urine Yeast TRACE /HPF Discharge Plan Discharge Clinical Impression: Fracture of wrist, UTI (urinary tract infection) Patient Disposition: Home, Self-Care Instructions: Wrist Fracture in Adults (ED), Urinary Tract Infection in Older Adults (ED) Additional Instructions: Wear the splint as advised to keep the right arm elevated Antibiotic as prescribed for urinary tract infection Follow with Orthopedics in 1 week Use la f?jasson marcus se recomienda para mantener el brazo derecho elevado Antibi?gretta seg?n lo prescrito para la infecci?n del tracto urinario seguimiento con ortopedia Prescriptions: New cefuroxime axetil 250 mg tablet 250 mg PO BID 7 Days Qty: 14 0RF acetaminophen-codeine 300-30 mg tablet 1 tab PO Q8H PRN (Reason: pain) Qty: 20 0RF No Action aspirin [Adult Low Dose Aspirin] 81 mg tablet,delayed release (DR/EC) 81 mg PO DAILY Qty: 90 3RF atorvastatin 40 mg tablet 40 mg PO DAILY Qty: 90 3RF metoprolol succinate 25 mg tablet extended release 24 hr 25 mg PO DAILY Qty: 90 1RF tramadol 50 mg tablet 1 tab PO BID PRN (Reason: Insomnia) acetaminophen 500 mg tablet 500 mg PO Q8H mirtazapine 30 mg tablet 1 tab PO BEDTIME docusate sodium 100 mg capsule 1 cap PO BID sertraline 25 mg tablet 1 tab PO DAILY polyethylene glycol 3350 17 gram/dose powder 17 g PO DAILY albuterol sulfate 90 mcg/actuation HFA aerosol inhaler 2 puff PO Q4-6H PRN (Reason: Wheezing) ondansetron 4 mg tablet,disintegrating 4 mg PO Q8H PRN (Reason: nausea and vomiting) Qty: 20 0RF ondansetron 4 mg tablet,disintegrating 4 mg PO Q8H PRN (Reason: nausea and vomiting) Qty: 20 0RF amitriptyline 10 mg tablet 10 mg PO DAILY sumatriptan succinate 50 mg tablet 50 mg PO Q2-4H PRN (Reason: Migraine Headache) Rx Instructions: do not exceed 4 doses per 24 hrs omeprazole 10 mg capsule,delayed release(DR/EC) 10 mg PO DAILY (DME) Wrist Brace Misc See Rx Instructions .MEDSUPPLY Qty: 1 0RF Rx Instructions: COMFORT FORM WRIST, RT, S Disp 1 REfill 0 trazodone 50 mg tablet 50 mg PO BEDTIME ibuprofen 200 mg tablet 200 mg PO Q6H PRN (Reason: pain) Qty: 30 0RF Referrals: Regan Archer MD [Physician] - 1 week Print Language: Croatian
--- NOTE | 2022-03-14 02:22 | ECG_ITS ---
Test Reason : FALL Blood Pressure : / mmHG Vent. Rate : 054 BPM Atrial Rate : 054 BPM P-R Int : 148 ms QRS Dur : 084 ms QT Int : 518 ms P-R-T Axes : 053 -03 028 degrees QTc Int : 491 ms Sinus bradycardia Possible Lateral infarct (cited on or before 04-MAY-2020) Prolonged QTc Abnormal ECG When compared with ECG of 14-OCT-2021 15:44, Vent. rate has decreased BY 30 BPM Referred By: Wander Echavarria Electronically Signed By:ABBY GRIMM
[2022-03-14 03:02] VITALS: BP 178/84; PULSE 53; RESP 16; O2SAT 96
[2022-03-14 03:05] VITALS: BP 137/67; PULSE 60
[2022-03-14 03:28] LABS: MANUAL DIFF FLAG NO
[2022-03-14 03:30] LABS: Basophils Absolute Auto 0.1 X10*3/uL (0.0-0.2); Basophils Percent Auto 0.4 % (0-2); Eosinophils Absolute Auto 0.3 X10*3/uL (0.0-0.4); Eosinophils Percent Auto 2.7 % (0-4); Hematocrit 40.3 % (37.0-47.0); Hemoglobin 13.2 g/dl (12.0-16.0); Imm Gran Abs Auto 0.03 X10*3/uL (0.00-0.03); Imm Gran Pct Auto 0.3 % (0.0-0.4); Lymphocytes Absolute Auto 4.7 X10*3/uL (1.2-4.9); Lymphocytes Percent Auto 41.6 % (20-40); Mean Corpuscular HGB Conc 32.8 g/dl (31.0-35.0); Mean Corpuscular Hemoglobin 32.4 pg (27.0-33.0); Mean Corpuscular Volume 98.8 fL (80.0-98.0); Mean Platelet Volume 11.4 fL (9.4-12.3); Monocytes Absolute Auto 1.2 X10*3/uL (0.1-1.2); Monocytes Percent Auto 10.7 % (2-11); Neutrophils Percent Auto 44.3 % (45-73); Platelet Count 264 X10*3/uL (160-400); Red Blood Count 4.08 X10*6/uL (4.20-5.50); Red Cell Distribution Width 13.7 % (11.0-16.0); White Blood Count 11.4 X10*3/uL (4.8-10.8)
[2022-03-14 03:47] LABS: Alanine Aminotransferase 18 U/L (0-31); Alkaline Phosphatase 94 U/L (39-117); Anion Gap 13 (12-20); Aspartate Amino Transferase 27 U/L (5-31); Bilirubin Total 0.2 mg/dL (0.0-1.0); Blood Urea Nitrogen 11 mg/dL (9-16); Calcium 9.4 mg/dL (8.4-10.2); Carbon Dioxide 26 mmol/L (22-29); Chloride 105 mmol/L (96-108); Creatinine Clr Calc Pharmacy 50.4; Estimated Glomerular Filt Rate > 60; Glucose Random 113 mg/dL (60-115); Potassium 5.4 mmol/L (3.3-5.1); Sodium 139 mmol/L (135-145); Total Protein 7.6 g/dL (6.5-8.0)
[2022-03-14 04:14] LABS: Appearance Urine TURBID; Color Urine YELLOW; Glucose Urine UA NEG (NEG); Leukocyte Esterase Urine 1+ (NEG); Nitrite Urine POS (NEG); PH 7.5 (5.0-8.0); UACC Culture Trigger YES; Urine Blood NEG (NEG); Urine Ketones NEG (NEG); Urine Protein NEG (NEG-TRACE)
[2022-03-14 04:28] LABS: Bacteria Urine 3+ /LPF; Mucus Urine 2+ /LPF; RBC Urine 0-2 /HPF (0); Squamous Epithelial Cell Urine 3+ /LPF; Triple Phosphate Crystal Urine 2+ /LPF
[2022-03-14 05:10] VITALS: BP 163/74; PULSE 53; RESP 16; O2SAT 95
[2022-03-14] MEDS: 0.9 % Sodium Chloride 1,000 ML 999 ML IV (05:12)
[2022-03-14] MEDS: cefTRIAXone sodium 1 GM in 0.9 % Sodium Chloride 50 ML IV (05:16)
[2022-03-14 06:12] VITALS: BP 155/87; PULSE 59; RESP 18; O2SAT 96
== END 2022-03-14 06:48 | disposition home or self-care (01) ==
PROVIDERS: Emergency Provider Internal Medicine; PCP Internal Medicine Geriatric Medicine
DX: N39.0 Urinary tract infection, site not specified (principal); S59.091A Other physeal fracture of lower end of ulna, right arm, initial encounter for closed fracture; S80.212A Abrasion, left knee, initial encounter; W01.0XXA Fall on same level from slipping, tripping and stumbling without subsequent striking against object, initial encounter; Y93.89 Activity, other specified; Y92.038 Other place in apartment as the place of occurrence of the external cause; Y99.9 Unspecified external cause status
CPT/HCPCS: 36415; 73110; 73130; 73562; 80053; 81001; 84484; 85025; 87086; 93005; 96361; 96365; 99285; J0696

== ENCOUNTER 2022-04-19 10:21 | Emergency (ER) | payer OTHER, SELFPAY ==
--- NOTE | ~2022-04-19 | US_ITS ---
EXAMINATION: US VENOUS WITH DOPPLER UPPER EXTREMITY, RIGHT CLINICAL INFORMATION: Pain COMPARISON: None TECHNIQUE: Ultrasound of the upper extremity is performed using compression sonography and color and pulse Doppler flow with assessment of augmentation of flow. There is also imaging and Doppler assessment of the jugular and subclavian veins. Spectral analysis with color-flow imaging is performed. FINDINGS: Respiratory variation, normal compression, and augmented flow are noted throughout the upper extremity including the axillary, brachial, cubital, and radial and ulnar veins. There is normal flow in the internal jugular and subclavian veins. There is no visible deep or superficial thrombophlebitis. If the patient's symptoms progress, a followup ultrasound in 5 -7 days might be of value to exclude proximal propagation from a nonvisualized distal arm vein. US/US venous duplex UE RT IMPRESSION: No DVT demonstrated in the right upper extremity
--- NOTE | ~2022-04-19 | XR_ITS ---
EXAMINATION: XR FOREARM, RIGHT CLINICAL INFORMATION: Evaluate subacute fracture COMPARISON: 06/14/2021 TECHNIQUE: AP and lateral views of the right forearm were obtained. FINDINGS: Findings do suggest a healing fracture of the distal radius. Oblique in nature. There is felt to be external and probable internal callus formation. XR/XR forearm RT 2V IMPRESSION: Findings consistent with healing fracture of the distal radial diaphysis. Fracture line is still well visible.
[2022-04-19 10:42] VITALS: BP 103/77; PULSE 91; RESP 18; TEMP 36.4; O2SAT 96; BMI 25.4
--- NOTE | 2022-04-19 12:42 | ED_ITS ---
HPI - Extremity Problem General Chief complaint: Extremity Injury, Upper Stated complaint: right arm pain Time Seen by Provider: 04/19/22 12:34 Source: patient, family and EMS History of Present Illness HPI Narrative: 81-year-old female with a past medical history of CAD, dementia, HLD, HTN, NSTEMI, previous ulnar fracture on 03/14/2022, presenting to the ED complaining of continued right arm pain since fracture. Patient failed to follow-up with Orthopedics, still has splint in place from initial evaluation. Reports orthopedic never called her to make appointment, and she never called them. Reports continued/unchanged pain. Denies new injury, numbness, tingling, fever MD Complaint: extremity pain Onset (ago): month(s) Related Data Home Medications Medication Instructions Recorded Confirmed amitriptyline 10 mg tablet 10 mg PO DAILY 08/02/20 07/04/21 omeprazole 10 mg capsule,delayed 10 mg PO DAILY 08/02/20 07/04/21 release sumatriptan succinate 50 mg tablet 50 mg PO Q2-4H PRN Migraine 08/02/20 07/04/21 Headache acetaminophen 500 mg tablet 500 mg PO Q8H 06/27/21 07/04/21 albuterol sulfate 90 mcg/actuation 2 puff PO Q4-6H PRN Wheezing 06/27/21 07/04/21 aerosol inhaler docusate sodium 100 mg capsule 1 cap PO BID 06/27/21 07/04/21 mirtazapine 30 mg tablet 1 tab PO BEDTIME 06/27/21 07/04/21 polyethylene glycol 3350 17 17 g PO DAILY 06/27/21 07/04/21 gram/dose oral powder sertraline 25 mg tablet 1 tab PO DAILY 06/27/21 07/04/21 tramadol 50 mg tablet 1 tab PO BID PRN Insomnia 06/27/21 07/04/21 trazodone 50 mg tablet 50 mg PO BEDTIME 09/18/21 Previous Rx's Medication Instructions Recorded arm brace (Wrist Brace) #1 ea 08/09/20 aspirin 81 mg tablet,delayed 81 mg PO DAILY #90 tabs 02/26/21 release (Adult Low Dose Aspirin) atorvastatin 40 mg tablet 40 mg PO DAILY #90 tabs 02/26/21 metoprolol succinate 25 mg 25 mg PO DAILY #90 tabs 02/26/21 tablet,extended release 24 hr ondansetron 4 mg disintegrating 4 mg PO Q8H PRN nausea and 03/13/21 tablet vomiting #20 tabs ondansetron 4 mg disintegrating 4 mg PO Q8H PRN nausea and 06/27/21 tablet vomiting #20 tabs ibuprofen 200 mg tablet 200 mg PO Q6H PRN pain #30 tabs 09/18/21 acetaminophen 300 mg-codeine 30 mg 1 tab PO Q8H PRN pain #20 tabs 03/14/22 tablet cefuroxime axetil 250 mg tablet 250 mg PO BID 7 days #14 tabs 03/14/22 acetaminophen 500 mg tablet 500 mg PO Q6H PRN fever or pain 04/19/22 (Tylenol Extra Strength) #14 tabs naproxen 500 mg tablet 500 mg PO BID PRN pain 10 days #20 04/19/22 tabs Allergies Allergy/AdvReac Type Severity Reaction Status Date / Time No Known Allergies Allergy Unknown UNKNOWN Verified 04/19/22 10:41 [NO KNOWN ALLERGIES] Review of Systems Review of Systems: Constitutional: No Weight loss, No Fever, No Chills ENT/Mouth: No Ear Pain, No Nasal Congestion, No sore throat, No Rhinorrhea, No Swallowing Difficulty Cardiovascular: No Chest Pain, No SOB Respiratory: No Cough, No Sputum, No Wheezing Gastrointestinal: No Nausea, No Vomiting, No Diarrhea, No Constipation, No Abdominal pain Genitourinary: No Dysuria, No Urinary Frequency, No Hematuria, No Urinary Incontinence/retention, No Urgency, No Flank Pain Musculoskeletal: + joint pain, No Myalgias, No Joint Swelling Skin: No Skin Lesions, No rash Neuro: No Weakness, No Numbness, No Paresthesias Yes all other systems are reviewed and are negative [facility] Past Medical History Attestation statement: The following information was validated with the patient. Medical History Abnormal nuclear stress test Coronary artery disease CVA, old, disturbances of vision (~09/2019) Dementia Gallstones HLD (hyperlipidemia) HTN (hypertension) NSTEMI (non-ST elevated myocardial infarction) Family History Family History Father No problems noted. Mother No problems noted. Social History Social History Alcohol intake: never Patient Tobacco Use Status: Never used Tobacco Years Smoked: Chews tobacco Advance Directives: No Advance Directives Information Provided: No Physical Exam Vital Signs: Vital Signs: Last Vital Signs Temp 97.5 F 04/19/22 10:42 Pulse 91 04/19/22 10:42 Resp 18 04/19/22 10:42 BP 103/77 04/19/22 10:42 Pulse Ox 96 04/19/22 10:42 O2 Del Method 04/19/22 10:42 BMI result Body Mass Index 25.4 Const: Other: sitting in her feces General: cooperative, no acute distress and poor hygiene; No well groomed Orientation/consciousness: patient oriented x3 Limitations: no limitations HEENT: Head: Yes normal to inspection and Yes atraumatic Ears: hearing grossly normal bilaterally General nose exam: Normal external nose present Face and sinus: Yes normal facial exam Eyes: General: appearance normal, both eyes and all related structures EOM: EOMs intact bilaterally Neck: Neck: Yes normal visual inspection and Yes no meningeal signs Resp: Effort & Inspection: normal respiratory effort and no respiratory distress Cardio: Rate: regular rate Heart sounds: S1 normal heart sound present and S2 normal heart sound present Peripheral pulses: radial pulses present and ulnar radial pulses present GI: Inspection: Yes normal to inspection Palpation (GI): Soft to palpation and nontender Skin: Rashes: no rashes Wounds: no wounds Neuro: General: patient oriented x3, tone normal and no meningeal signs Extrem: Other: Right upper extremity with old/dirty sugar-tong splint in place. Splint removed. RUE deconditioned. Proximal UE with mild swelling and tenderness. Neurovascular intact distally. ROM limited to RUE Course Course Course Narrative: US venous duplex UE RT IMPRESSION: No DVT demonstrated in the right upper extremity XR forearm RT 2V IMPRESSION: Findings consistent with healing fracture of the distal radial diaphysis. Fracture line is still well visible. > case discussed with orthopedic MASOOD Heredia, recommended we re-splint patient. underwriting manager Thelma involved underwriting manager Thelma spoke with patient and son, patient has another son in [place] that meal preps for them and visits 2 times weekly. Patient also has high school social studies tutor that visits once a week. Our field nurse case manager will touch base with patient's high school social studies tutor and try to get more services in the home > sugar-tong splint reapplied. Sling applied. Importance of orthopedic follow- up stressed MDM - Extremity (Nontraumatic) MDM Narrative Medical decision making narrative: 81-year-old female with a past medical history of CAD, dementia, HLD, HTN, NSTEMI, previous ulnar fracture on 03/14/2022, presenting to the ED complaining of continued right arm pain since fracture. On exam vital signs stable, NAD, nontoxic appearing, poor hygiene, sitting in feces with old splint on greater than 1 month. Previous imaging/visit reviewed. Concern for deconditioning vs DVT Plan: Repeat x-rays, ultrasound, case management consult Differential Diagnosis Differential diagnosis: Likely cellulitis and deep venous thrombosis of upper extremity Medical Records Attestation: I reviewed the patient's medical records. Lab Data Attestation: I reviewed the patient's lab results. Procedures Orthopedic Splinting/Casting Injury #1: Side: right Upper Extremity Injury Location: forearm Upper Extremity Immobilizer: sling/shoulder immobilizer and sugar tong splint Discharge Plan Discharge Clinical Impression: Right distal ulnar fracture Qualifiers: Encounter type: subsequent encounter Fracture type: closed Fracture healing: with routine healing Patient Disposition: Home, Self-Care Instructions: Wrist Fracture in Adults (ED) Additional Instructions: Keep splint on, dry and clean. YOU NEED TO FOLLOW-UP WITH ORTHOPEDICS, CALL TO MAKE AN APPOINTMENT Naproxen as an anti-inflammatory/pain medication, take with food. In addition take Tylenol Ice and elevate Mantenga la f?jasson puesta, seca y limpia. NECESITAS SEGUIMIENTO CON ORTOPEDIA, LLAMA PARA HACER ELIZABETH Naproxeno marcus medicamento antiinflamatorio/analg?sico, t?jimenes con alimentos. Adem?s alden Tylenol hielo y elevar Prescriptions: New acetaminophen [Tylenol Extra Strength] 500 mg tablet 500 mg PO Q6H PRN (Reason: fever or pain) Qty: 14 0RF naproxen 500 mg tablet 500 mg PO BID PRN (Reason: pain) 10 Days Qty: 20 0RF No Action aspirin [Adult Low Dose Aspirin] 81 mg tablet,delayed release (DR/EC) 81 mg PO DAILY Qty: 90 3RF atorvastatin 40 mg tablet 40 mg PO DAILY Qty: 90 3RF metoprolol succinate 25 mg tablet extended release 24 hr 25 mg PO DAILY Qty: 90 1RF tramadol 50 mg tablet 1 tab PO BID PRN (Reason: Insomnia) acetaminophen 500 mg tablet 500 mg PO Q8H mirtazapine 30 mg tablet 1 tab PO BEDTIME docusate sodium 100 mg capsule 1 cap PO BID sertraline 25 mg tablet 1 tab PO DAILY polyethylene glycol 3350 17 gram/dose powder 17 g PO DAILY albuterol sulfate 90 mcg/actuation HFA aerosol inhaler 2 puff PO Q4-6H PRN (Reason: Wheezing) ondansetron 4 mg tablet,disintegrating 4 mg PO Q8H PRN (Reason: nausea and vomiting) Qty: 20 0RF ondansetron 4 mg tablet,disintegrating 4 mg PO Q8H PRN (Reason: nausea and vomiting) Qty: 20 0RF cefuroxime axetil 250 mg tablet 250 mg PO BID 7 Days Qty: 14 0RF acetaminophen-codeine 300-30 mg tablet 1 tab PO Q8H PRN (Reason: pain) Qty: 20 0RF amitriptyline 10 mg tablet 10 mg PO DAILY sumatriptan succinate 50 mg tablet 50 mg PO Q2-4H PRN (Reason: Migraine Headache) Rx Instructions: do not exceed 4 doses per 24 hrs omeprazole 10 mg capsule,delayed release(DR/EC) 10 mg PO DAILY (DME) Wrist Brace Misc See Rx Instructions .MEDSUPPLY Qty: 1 0RF Rx Instructions: COMFORT FORM WRIST, RT, S Disp 1 REfill 0 trazodone 50 mg tablet 50 mg PO BEDTIME ibuprofen 200 mg tablet 200 mg PO Q6H PRN (Reason: pain) Qty: 30 0RF Referrals: Giovanna Gavin PA-C [Physician Outside Operator] - 2 days Print Language: Greenlandic
--- NOTE | 2022-04-20 08:17 | MHC.CM.ED ---
Received consult for assessment of needs: pt arrived c/o right arm pain s/p fracture 2 weeks prior. Arm in dirty splint: pt did not f/u with ortho. Met with pt and son with whom she resides, using interpreter and translator. Pt has another son in [place] who assists with transportation, meal prep and housekeeping 2x week. Pt is able to complete her own ADL's but d/t fx, is having some difficulty. Pt states she didn't follow up with ortho because she felt they should call her if they want the business Pt states she was active with [facility] program including adult day care but stopped going recently. I didn't like it. She has a case assistant and f/u by [facility] 1 x weekly. Pt denies barriers to care stating, my sons help me Instructed pt to call ortho at number on d/c instructions using her son's cell phone. Pt verbalized understanding. Splint to be changed in ED and pt will d/c to home with son.
== END 2022-04-19 16:17 | disposition home or self-care (01) ==
PROVIDERS: Emergency Provider Emergency Medicine
DX: S52.601D Unspecified fracture of lower end of right ulna, subsequent encounter for closed fracture with routine healing (principal); W19.XXXD Unspecified fall, subsequent encounter; M79.601 Pain in right arm; E78.5 Hyperlipidemia, unspecified; F03.90 Unspecified dementia, unspecified severity, without behavioral disturbance, psychotic disturbance, mood disturbance, and anxiety; Z86.73 Personal history of transient ischemic attack (TIA), and cerebral infarction without residual deficits; Z79.82 Long term (current) use of aspirin; Z79.02 Long term (current) use of antithrombotics/antiplatelets; Z79.899 Other long term (current) drug therapy
CPT/HCPCS: 29125; 73090; 93971; 99283

== ENCOUNTER 2022-04-25 09:07 | Outpatient (REF) | payer OTHER, SELFPAY ==
--- NOTE | ~2022-04-25 | XR_ITS ---
EXAMINATION: XR HAND, RIGHT XR FOREARM, RIGHT CLINICAL INFORMATION: Pain in right forearm. COMPARISON: Right forearm 04/19/2022. TECHNIQUE: 2 views right forearm and 3 views right hand. FINDINGS: RIGHT HAND: There is diffuse osteopenia. Mild loss of PIP, DIP joint spaces is seen without bony erosive changes. The MCP joint spaces are preserved. The soft tissues are normal. No acute fracture or dislocation seen. RIGHT FOREARM: There is slow healing oblique fracture distal ulna with callus formation. No recurrent fracture seen. The soft tissues are normal. XR/XR hand RT min 3V IMPRESSION: Slowly healing oblique fracture distal ulna with callus formation. Diffuse osteopenia with degenerative changes PIP and DIP joints right hand. No acute fracture or dislocation.
--- NOTE | ~2022-04-25 | XR_ITS ---
EXAMINATION: XR HAND, RIGHT XR FOREARM, RIGHT CLINICAL INFORMATION: Pain in right forearm. COMPARISON: Right forearm 04/19/2022. TECHNIQUE: 2 views right forearm and 3 views right hand. FINDINGS: RIGHT HAND: There is diffuse osteopenia. Mild loss of PIP, DIP joint spaces is seen without bony erosive changes. The MCP joint spaces are preserved. The soft tissues are normal. No acute fracture or dislocation seen. RIGHT FOREARM: There is slow healing oblique fracture distal ulna with callus formation. No recurrent fracture seen. The soft tissues are normal. XR/XR forearm RT 2V IMPRESSION: Slowly healing oblique fracture distal ulna with callus formation. Diffuse osteopenia with degenerative changes PIP and DIP joints right hand. No acute fracture or dislocation.
== END 2022-04-25 09:08 | disposition home or self-care (01) ==
LOC: HO.HOSX 09:07
PROVIDERS: Visit Provider Physician Assistant
DX: S52.201A Unspecified fracture of shaft of right ulna, initial encounter for closed fracture (principal); S62.301A Unspecified fracture of second metacarpal bone, left hand, initial encounter for closed fracture
CPT/HCPCS: 25530; 29065; 73090; 73130; 99202

== ENCOUNTER 2022-05-23 07:29 | Outpatient (REF) | payer OTHER, SELFPAY ==
--- NOTE | ~2022-05-23 | XR_ITS ---
EXAMINATION: XR HAND, RIGHT XR FOREARM, RIGHT CLINICAL INFORMATION: Pain in right hand and right forearm. COMPARISON: None TECHNIQUE: 3 views right hand and 2 views right forearm. FINDINGS: RIGHT HAND: There is diffuse osteopenia. No visible acute fracture, dislocation or subluxation seen. There is reduction in PIP and DIP joint space without bony erosive changes. There is mild soft tissue swelling of all PIP joints. Incidental finding of a small fissure along the 5th metacarpal head. RIGHT FOREARM: There is an oblique healing fracture mid to distal ulna with callus formation. No other fracture seen. The soft tissues are normal. XR/XR forearm RT 2V IMPRESSION: Healing oblique fracture mid to distal ulna with callus formation. Diffuse osteopenia right hand with degenerative arthritic changes PIP and DIP joints. No visible acute fracture or dislocation seen.
--- NOTE | ~2022-05-23 | XR_ITS ---
EXAMINATION: XR HAND, RIGHT XR FOREARM, RIGHT CLINICAL INFORMATION: Pain in right hand and right forearm. COMPARISON: None TECHNIQUE: 3 views right hand and 2 views right forearm. FINDINGS: RIGHT HAND: There is diffuse osteopenia. No visible acute fracture, dislocation or subluxation seen. There is reduction in PIP and DIP joint space without bony erosive changes. There is mild soft tissue swelling of all PIP joints. Incidental finding of a small fissure along the 5th metacarpal head. RIGHT FOREARM: There is an oblique healing fracture mid to distal ulna with callus formation. No other fracture seen. The soft tissues are normal. XR/XR hand RT min 3V IMPRESSION: Healing oblique fracture mid to distal ulna with callus formation. Diffuse osteopenia right hand with degenerative arthritic changes PIP and DIP joints. No visible acute fracture or dislocation seen.
== END 2022-05-23 07:30 | disposition home or self-care (01) ==
LOC: HO.HOSX 07:29
PROVIDERS: Visit Provider Physician Assistant
DX: S52.201A Unspecified fracture of shaft of right ulna, initial encounter for closed fracture (principal); S62.301A Unspecified fracture of second metacarpal bone, left hand, initial encounter for closed fracture
CPT/HCPCS: 29075; 73090; 73130

== ENCOUNTER 2022-06-23 | Outpatient (REF) | payer OTHER, SELFPAY ==
--- NOTE | ~2022-06-23 | XR_ITS ---
EXAMINATION: XR FOREARM, RIGHT CLINICAL INFORMATION: M79.631 - Pain in right forearm COMPARISON: 05/23/2022 TECHNIQUE: AP and lateral views of the right forearm were obtained. FINDINGS: Bones are diffusely osteopenic. Progressive ossification is evident at the distal ulnar diaphyseal fracture. No new fractures. Bones are osteopenic. 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 Soft tissues are unremarkable. XR/XR forearm RT 2V IMPRESSION: Progressive healing at the distal ulnar diaphyseal fracture.
== END 2022-06-23 00:01 | disposition home or self-care (01) ==
LOC: HO.HOSX
PROVIDERS: Visit Provider Physician Assistant
DX: M79.631 Pain in right forearm (principal)
CPT/HCPCS: 73090

== ENCOUNTER 2022-07-02 10:33 | Emergency (ER) | payer OTHER, SELFPAY ==
--- NOTE | ~2022-07-02 | XR_ITS ---
EXAMINATION: XR HIP, RIGHT CLINICAL INFORMATION: Right hip pain status post fall. COMPARISON: None TECHNIQUE: Two views of the right hip. FINDINGS: Bones and soft tissues are normal. No fracture. Alignment is anatomic. Hip joint space is maintained. XR/XR hip RT w PEL1V IMPRESSION: Unremarkable right hip.
--- NOTE | ~2022-07-02 | CT_ITS ---
EXAMINATION: CT CHEST, ABDOMEN AND PELVIS WITH CONTRAST. CLINICAL INFORMATION: Reason for Exam ?fall. L flank bruising . COMPARISON: CT abdomen pelvis 10/14/2021. TECHNIQUE: Multidetector volumetric imaging was performed from the thoracic inlet through the pubic symphysis following the administration of: Oral contrast: No Intravenous contrast: 85 mL Omnipaque 350 No contrast reaction reported Sagittal and coronal reformatted images were obtained on the technologist workstation. In addition, thin section, high resolution reconstruction, targeted reformatted images through the thoracic and lumbar spine were obtained with coronal and sagittal high resolution reformatted images as well. This CT examination was performed using dose optimization techniques as appropriate, variously including the following: *Automated exposure control *Adjustment of mA and/or kV according to patient size (this includes techniques or standardized protocols for targeted exams where dose is matched to indication/reason for exam; i.e. extremities or head) *Use of iterative reconstruction technique Total exam dose-length product 304 mGy-cm FINDINGS: CHEST: VASCULAR: The aorta is unremarkable; no evidence of dissection, aneurysm, or traumatic aortic injury. Incidental note is made of an apparent right subclavian artery. The central pulmonary arteries enhance normally. AORTIC ISTHMUS: Normal. MEDIASTINUM: No mediastinal fluid or hematoma. A tiny 3 mm left thyroid nodule is seen which should need no further follow-up. No hilar or mediastinal lymphadenopathy. LUNG: No nodules, mass, or focal consolidation. PLEURA: No pleural effusion. No pneumothorax. No pleural mass or thickening. CHEST WALL/AXILLA: Unremarkable. ABDOMEN/PELVIS : LIVER : The liver is normal in size, shape, and attenuation. No focal hepatic lesion or biliary ductal dilatation is present. GALLBLADDER, AND BILIARY TREE The gallbladder contains multiple small stones at the gallbladder neck without obvious pericholecystic inflammatory changes. PANCREAS: Normal; no mass or surrounding fluid. SPLEEN: Small size. No focal lesion. ADRENAL GLANDS: Normal; no mass. KIDNEYS AND URETERS: The kidneys are normal in size, shape, and attenuation. No hydronephrosis, hydroureter, or calculi. URINARY BLADDER: No focal mass or wall thickening seen. No bladder calculi. GASTROINTESTINAL TRACT: A small hiatal hernia is present. Stomach and small bowel non-dilated. Few scattered colonic diverticula are seen. No colonic wall thickening or pericolonic inflammatory changes. Normal appendix. VASCULAR STRUCTURES: There is no evidence of aortic or iliac injury. The inferior vena cava is intact. 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 ACTIVE BLEEDING: No. LYMPH NODES: No lymphadenopathy. The aorta has infrarenal calcified plaque without aneurysm. PELVIC VISCERA: Symmetric wall thickening of the bladder FREE FLUID: None. ABDOMINAL WALL: Small right inguinal hernia seen containing only fat. OSSEOUS STRUCTURES : No clavicle or scapula fracture. No displaced rib fracture seen. No sternal fracture seen.Normal sagittal alignment of the thoracic and lumbar spine. Vertebral body and disc heights are maintained; no compression fracture. Posterior elements intact. No sacral or pelvic fracture, The visualized hips are intact. CT/CT abdomen pelvis w IV con IMPRESSION: 1. No evidence of a traumatic injury in the chest abdomen or pelvis. 2. 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
--- NOTE | ~2022-07-02 | CT_ITS ---
EXAMINATION: HEAD CT WITHOUT CONTRAST CERVICAL SPINE CT WITHOUT CONTRAST CLINICAL INFORMATION: Question fall COMPARISON: 05/04/2020 TECHNIQUE: Contiguous axial imaging of the head was performed without the administration of IV contrast. Axial multidetector volumetric images were also performed through the cervical spine without intravenous contrast. Multiplanar reconstructed images in coronal and sagittal orientations were submitted. This CT examination was performed using dose optimization techniques as appropriate, variously including the following: *Automated exposure control *Adjustment of mA and/or kV according to patient size (this includes techniques or standardized protocols for targeted exams where dose is matched to indication/reason for exam; i.e. extremities or head) *Use of iterative reconstruction technique DOSE: 529 and 301 mGy-cm FINDINGS: HEAD: There is no evidence of acute intracranial hemorrhage or territorial infarction. No abnormal mass-effect or midline shift. No extra-axial fluid collections. Pittman to white matter differentiation is well preserved. The ventricles are normal in size and configuration. A few foci of hypoattenuation in the subcortical and periventricular white matter are most consistent with chronic microangiopathic changes. Calcific atherosclerosis is present within the cavernous segments of the internal carotid arteries. The soft tissues and osseous structures are normal. The sinuses and mastoid air cells are clear. CERVICAL SPINE: Vertebral body heights are normal. No fractures of the vertebral bodies or posterior elements. Vertebral alignment is normal. No subluxation. Degenerative changes are present at the craniocervical and atlantoaxial articulations, though normal alignment is maintained. Intervertebral disc heights are normal. Minimal degenerative osteophytic spurring at C6-C7. Facet joints are normal. Central canal and neural foramina appear patent without appreciable stenoses. 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 The carotid arteries are retropharyngeal in position. Mild calcific atherosclerosis. Imaged portions of the lung apices are clear. CT/CT cervical spine wo IV con IMPRESSION: 1. No acute intracranial pathology. 2. No acute fracture or malalignment in the cervical spine.
[2022-07-02 12:02] VITALS: BP 164/68; PULSE 62; RESP 16; TEMP 36.5; O2SAT 96; BMI 25.2
--- NOTE | 2022-07-02 13:39 | ED.LOWEXIN ---
HPI - Extremity Injury (Lower) General Chief Complaint: Extremity Injury, Lower <MASOOD Mccallum Last Filed: 07/02/22 18:24> Stated Complaint: possible blood clots. black and blue bruising <MASOOD Mccallum Last Filed: 07/02/22 18:24> Time Seen by Provider: 07/02/22 11:07 <MASOOD Mccallum Last Filed: 07/02/22 18:24> Source: patient <MASOOD Mccallum Last Filed: 07/02/22 18:24> Mode of arrival: ambulatory <MASOOD Mccallum Last Filed: 07/02/22 18:24> History of Present Illness HPI Narrative: 81-year-old female with a past medical history of CAD, dementia, HLD, HTN, NSTEMI, presenting to the ED complaining of right hip pain and left flank bruising x3 days. Patient lives with son who has intellectual disability and is not home often. Unknown fall. History obtained mostly from son that is accompanying patient, this son does not live with patient. States tried to have patient come to the ED 3 days ago however she refused. Denies headache, chest pain, shortness breath, abdominal pain, nausea/vomiting, hematuria. Denies taking anticoagulation <MASOOD Mccallum Last Filed: 07/02/22 18:24> MD complaint: leg injury and fall <MASOOD Mccallum Last Filed: 07/02/22 18:24> Onset (ago): day(s) <MASOOD Mccallum Last Filed: 07/02/22 18:24> Related Data Home Medications: Home Medications Medication Instructions Recorded Confirmed amitriptyline 10 mg tablet 10 mg PO DAILY 08/02/20 07/04/21 omeprazole 10 mg capsule,delayed 10 mg PO DAILY 08/02/20 07/04/21 release sumatriptan succinate 50 mg tablet 50 mg PO Q2-4H PRN Migraine 08/02/20 07/04/21 Headache acetaminophen 500 mg tablet 500 mg PO Q8H 06/27/21 07/04/21 albuterol sulfate 90 mcg/actuation 2 puff PO Q4-6H PRN Wheezing 06/27/21 07/04/21 aerosol inhaler docusate sodium 100 mg capsule 1 cap PO BID 06/27/21 07/04/21 mirtazapine 30 mg tablet 1 tab PO BEDTIME 06/27/21 07/04/21 polyethylene glycol 3350 17 17 g PO DAILY 06/27/21 07/04/21 gram/dose oral powder sertraline 25 mg tablet 1 tab PO DAILY 06/27/21 07/04/21 tramadol 50 mg tablet 1 tab PO BID PRN Insomnia 06/27/21 07/04/21 trazodone 50 mg tablet 50 mg PO BEDTIME 09/18/21 Previous Rx's Medication Instructions Recorded arm brace (Wrist Brace) #1 ea 08/09/20 aspirin 81 mg tablet,delayed 81 mg PO DAILY #90 tabs 02/26/21 release (Adult Low Dose Aspirin) atorvastatin 40 mg tablet 40 mg PO DAILY #90 tabs 02/26/21 metoprolol succinate 25 mg 25 mg PO DAILY #90 tabs 02/26/21 tablet,extended release 24 hr ondansetron 4 mg disintegrating 4 mg PO Q8H PRN nausea and 03/13/21 tablet vomiting #20 tabs ondansetron 4 mg disintegrating 4 mg PO Q8H PRN nausea and 06/27/21 tablet vomiting #20 tabs ibuprofen 200 mg tablet 200 mg PO Q6H PRN pain #30 tabs 09/18/21 acetaminophen 300 mg-codeine 30 mg 1 tab PO Q8H PRN pain #20 tabs 03/14/22 tablet cefuroxime axetil 250 mg tablet 250 mg PO BID 7 days #14 tabs 03/14/22 acetaminophen 500 mg tablet 500 mg PO Q6H PRN fever or pain 04/19/22 (Tylenol Extra Strength) #14 tabs naproxen 500 mg tablet 500 mg PO BID PRN pain 10 days #20 04/19/22 tabs <MASOOD Mccallum - Last Filed: 07/02/22 18:24> Allergies/Adverse Reactions: Allergies Allergy/AdvReac Type Severity Reaction Status Date / Time No Known Allergies Allergy Unknown UNKNOWN Verified 05/23/22 09:44 [NO KNOWN ALLERGIES] <MASOOD Mccallum - Last Filed: 07/02/22 18:24> Review of Systems Review of Systems: Constitutional: No Fever, No Chills, No Fatigue, No Malaise ENT/Mouth: No Ear Pain, No Nasal Congestion, No sore throat, No Rhinorrhea Eyes: No Eye Pain, No Swelling, No Redness, No Vision Changes Cardiovascular: No Chest Pain, No SOB, No Palpitations Respiratory: No Cough, No Sputum, No Dyspnea Gastrointestinal: No Nausea, No Vomiting, No Diarrhea, No Constipation, No Abdominal pain Genitourinary: No Dysuria, No Urinary Frequency, No Hematuria, No Urinary Incontinence/retention, No Flank Pain, No Urinary Flow Changes, No Hesitancy Musculoskeletal: + joint pain, No Myalgias, No Joint Swelling Skin: + Skin Lesions, No rash Neuro: No Weakness, No Numbness, No Paresthesias, Unknown fall, Unknown LOC <MASOOD Mccallum - Last Filed: 07/02/22 18:24> Yes all other systems are reviewed and are negative <MASOOD Mccallum - Last Filed: 07/02/22 18:24> Constitutional: Constitutional: Reports as per HPI <MASOOD Mccallum - Last Filed: 07/02/22 18:24> [facility] Past Medical History Attestation statement: The following information was validated with the patient. <MASOOD Mccallum - Last Filed: 07/02/22 18:24> Medical History: Medical History Abnormal nuclear stress test Coronary artery disease CVA, old, disturbances of vision (~09/2019) Dementia Gallstones HLD (hyperlipidemia) HTN (hypertension) NSTEMI (non-ST elevated myocardial infarction) <MASOOD Mccallum - Last Filed: 07/02/22 18:24> Family History Family History: Family History Father No problems noted. Mother No problems noted. 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 <MASOOD Mccallum - Last Filed: 07/02/22 18:24> Physical Exam Vital Signs: Vital Signs: Last Vital Signs Temp 97.7 F 07/02/22 12:02 Pulse 57 07/02/22 14:29 Resp 16 07/02/22 14:29 BP 146/58 H 07/02/22 14:29 Pulse Ox 98 07/02/22 14:29 O2 Del Method 07/02/22 14:29 BMI result Body Mass Index 25.2 <MASOOD Mccallum - Last Filed: 07/02/22 18:24> Vital Signs: Last Vital Signs Temp 97.7 F 07/02/22 12:02 Pulse 57 07/02/22 14:29 Resp 16 07/02/22 14:29 BP 146/58 H 07/02/22 14:29 Pulse Ox 98 07/02/22 14:29 O2 Del Method 07/02/22 14:29 BMI result Body Mass Index 25.2 <MASOOD Santiago - Last Filed: 07/02/22 19:35> Const: General: cooperative, healthy appearing, comfortable and no acute distress <MASOOD Mccallum - Last Filed: 07/02/22 18:24> Limitations: no limitations <MASOOD Mccallum - Last Filed: 07/02/22 18:24> HEENT: Head: Yes normal to inspection and Yes atraumatic <MASOOD Mccallum - Last Filed: 07/02/22 18:24> Ears: hearing grossly normal bilaterally <MASOOD Mccallum - Last Filed: 07/02/22 18:24> General nose exam: Normal external nose present <MASOOD Mccallum - Last Filed: 07/02/22 18:24> Face and sinus: Yes normal facial exam <MASOOD Mccallum - Last Filed: 07/02/22 18:24> Throat: Yes posterior oropharynx normal, Yes tonsils normal and Yes uvula midline <MASOOD Mccallum - Last Filed: 07/02/22 18:24> Eyes: General: appearance normal, both eyes and all related structures <MASOOD Mccallum - Last Filed: 07/02/22 18:24> Pupils: Equal, round and reactive pupils present <Bushra Iwonageot PA - Last Filed: 07/02/22 18:24> EOM: EOMs intact bilaterally <Bushra Poulgeot, PA - Last Filed: 07/02/22 18:24> Neck: Neck: Yes normal visual inspection and Yes no meningeal signs <Bushra Iwonageot PA - Last Filed: 07/02/22 18:24> Resp: Effort & Inspection: normal respiratory effort and no respiratory distress <Bushra Iwonageot PA - Last Filed: 07/02/22 18:24> Auscultation: clear to auscultation bilaterally <Bushra Poulgeot PA - Last Filed: 07/02/22 18:24> Cardio: Rate: regular rate <Bushra Poulgeot, PA - Last Filed: 07/02/22 18:24> Heart sounds: S1 normal heart sound present and S2 normal heart sound present <Bushra Bustillogeot PA - Last Filed: 07/02/22 18:24> GI: Inspection: Yes normal to inspection <Bushra Bustillogeot PA - Last Filed: 07/02/22 18:24> Palpation (GI): Soft to palpation, nontender, no guarding and not rigid <Bushra Iwonaamadeo PA - Last Filed: 07/02/22 18:24> : Other: + healing ecchymosis noted to left flank. Nontender. <Bushra Iwonageot PA - Last Filed: 07/02/22 18:24> General: Yes no CVA tenderness <Bushra Poulgeot PA - Last Filed: 07/02/22 18:24> Back/Spine/Pelvis: Other: No midline thoracic/lumbar spinous tenderness/step-off or deformity <Bushra Pouliot PA - Last Filed: 07/02/22 18:24> Back: no CVA tenderness <Bushra Pouliot, PA - Last Filed: 07/02/22 18:24> Skin: Rashes: no rashes <Bushra Poulgeot PA - Last Filed: 07/02/22 18:24> Wounds: no wounds <Bushra Poulgeot PA - Last Filed: 07/02/22 18:24> Neuro: General: tone normal, no meningeal signs, no focal motor deficits and CN's II-XI intact bilaterally <MASOOD Mccallum Last Filed: 07/02/22 18:24> Cranial nerves: Yes Equal, round and reactive pupils present <MASOOD Mccallum Last Filed: 07/02/22 18:24> Extrem: Other: No appreciable hip deformity. Neurovascularly intact distally. Full range of motion intact to bilateral hips without pain <MASOOD Mccallum Last Filed: 07/02/22 18:24> General: Yes normal to inspection <MASOOD Mccallum Last Filed: 07/02/22 18:24> Course Course Course Narrative: XR hip RT w PEL1V IMPRESSION: Unremarkable right hip. -patient was ambulating in the ED with steady gait -mild leukocytosis of 11.8. Labs otherwise unremarkable 1805--CT head/brain wo IV con/CT cervical spine wo IV con IMPRESSION: 1. No acute intracranial pathology. 2. No acute fracture or malalignment in the cervical spine. -1822-- ED care transferred to MASOOD Stephens pending remaining CTs and dispo <MAOSOD Mccallum Last Filed: 07/02/22 18:24> Reevaluation(s) Reevaluation #1: CT scan of chest/abdomen pelvis revealed chronic changes no acute processes noted. Therefore at this time will DC home with instructions return if any new or worsening symptoms follow up with primary care provider. Patient with family member at bedside understand agree this plan. <MASOOD Santiago - Last Filed: 07/02/22 19:35> Time: 19:34 <MASOOD Santiago Last Filed: 07/02/22 19:35> MDM - Extremity Injury (Lower) MDM Narrative Medical decision making narrative: 81-year-old female with a past medical history of CAD, dementia, HLD, HTN, NSTEMI, presenting to the ED complaining of right hip pain and left flank bruising x3 days. On exam vital signs stable, NAD, nontoxic appearing, no focal neuro deficits, no appreciable deformity, ecchymosis noted to left flank, abdomen is soft/nontender. Concern for retroperitoneal/intra-abdominal bleeding vs fractures. ?Unknown head trauma Discussed with son/patient PT/case management which they are not interested in Plan: Hip/pelvic x-ray, labs, CT head/C-spine/chest/abdomen/pelvis <MASOOD Mccallum - Last Filed: 07/02/22 18:24> Medical Records Attestation: I reviewed the patient's medical records. <MASOOD Mccallum - Last Filed: 07/02/22 18:24> Lab Data Attestation: I reviewed the patient's lab results. <MASOOD Mccallum - Last Filed: 07/02/22 18:24> Result diagrams: : 07/02/22 14:59 07/02/22 14:59 <MASOOD Mccallum - Last Filed: 07/02/22 18:24> Labs: Lab Results 07/02/22 07/02/22 07/02/22 Range/Units 14:59 14:59 14:59 WBC 11.8 H (4.8-10.8) X10*3/uL RBC 3.64 L (4.20-5.50) X10*6/uL Hgb 12.1 (12.0-16.0) g/dl Hct 35.1 L (37.0-47.0) % MCV 96.4 (80.0-98.0) fL MCH 33.2 H (27.0-33.0) pg MCHC 34.5 (31.0-35.0) g/dl RDW 13.2 (11.0-16.0) % Plt Count 266 (160-400) X10*3/uL MPV 11.8 (9.4-12.3) fL Immature Gran % (Auto) 0.3 (0.0-0.4) % Neut % (Auto) 53.6 (45-73) % Lymph % (Auto) 34.5 (20-40) % Dupage % (Auto) 10.7 (2-11) % Eos % (Auto) 0.6 (0-4) % Baso % (Auto) 0.3 (0-2) % Lymph # (Auto) 4.1 (1.2-4.9) X10*3/uL Dupage # (Auto) 1.3 H (0.1-1.2) X10*3/uL Eos # (Auto) 0.1 (0.0-0.4) X10*3/uL Baso # (Auto) 0.0 (0.0-0.2) X10*3/uL Abs Immat Gran (auto) 0.04 H (0.00-0.03) X10*3/uL Absolute Neuts (auto) 6.3 (2.0-8.3) x10*3/uL Absolute Nucleated RBC 0.000 (0.0-0.012) X10*3/uL Nucleated RBC % (auto) 0.0 (0.0-0.2) /100WBC PT 12.2 (10.0-13.1) SEC INR 1.1 (0.9-1.1) Sodium 140 (135-145) mmol/L Potassium 4.0 D (3.3-5.1) mmol/L Chloride 104 (96-108) mmol/L Carbon Dioxide 22 (22-29) mmol/L Anion Gap 18 (12-20) BUN 10 (9-16) mg/dL Creatinine 0.69 (0.5-1.4) mg/dL Estim Creat Clear Calc 49.0 Estimated GFR > 60 Random Glucose 104 (60-115) mg/dL Calcium 9.3 (8.4-10.2) mg/dL Total Bilirubin 0.4 (0.0-1.0) mg/dL Direct Bilirubin 0.2 (0.0-0.5) mg/dL AST 20 (5-31) U/L ALT 10 (0-31) U/L Alkaline Phosphatase 74 D (39-117) U/L Total Protein 7.3 (6.5-8.0) g/dL Albumin 4.0 (3.5-5.0) g/dL <MASOOD Mccallum - Last Filed: 07/02/22 18:24> Lab Results 07/02/22 07/02/22 07/02/22 Range/Units 14:59 14:59 14:59 WBC 11.8 H (4.8-10.8) X10*3/uL RBC 3.64 L (4.20-5.50) X10*6/uL Hgb 12.1 (12.0-16.0) g/dl Hct 35.1 L (37.0-47.0) % MCV 96.4 (80.0-98.0) fL MCH 33.2 H (27.0-33.0) pg MCHC 34.5 (31.0-35.0) g/dl RDW 13.2 (11.0-16.0) % Plt Count 266 (160-400) X10*3/uL MPV 11.8 (9.4-12.3) fL Immature Gran % (Auto) 0.3 (0.0-0.4) % Neut % (Auto) 53.6 (45-73) % Lymph % (Auto) 34.5 (20-40) % Dupage % (Auto) 10.7 (2-11) % Eos % (Auto) 0.6 (0-4) % Baso % (Auto) 0.3 (0-2) % Lymph # (Auto) 4.1 (1.2-4.9) X10*3/uL Dupage # (Auto) 1.3 H (0.1-1.2) X10*3/uL Eos # (Auto) 0.1 (0.0-0.4) X10*3/uL Baso # (Auto) 0.0 (0.0-0.2) X10*3/uL Abs Immat Gran (auto) 0.04 H (0.00-0.03) X10*3/uL Absolute Neuts (auto) 6.3 (2.0-8.3) x10*3/uL Absolute Nucleated RBC 0.000 (0.0-0.012) X10*3/uL Nucleated RBC % (auto) 0.0 (0.0-0.2) /100WBC PT 12.2 (10.0-13.1) SEC INR 1.1 (0.9-1.1) Sodium 140 (135-145) mmol/L Potassium 4.0 D (3.3-5.1) mmol/L Chloride 104 (96-108) mmol/L Carbon Dioxide 22 (22-29) mmol/L Anion Gap 18 (12-20) BUN 10 (9-16) mg/dL Creatinine 0.69 (0.5-1.4) mg/dL Estim Creat Clear Calc 49.0 Estimated GFR > 60 Random Glucose 104 (60-115) mg/dL Calcium 9.3 (8.4-10.2) mg/dL Total Bilirubin 0.4 (0.0-1.0) mg/dL Direct Bilirubin 0.2 (0.0-0.5) mg/dL AST 20 (5-31) U/L ALT 10 (0-31) U/L Alkaline Phosphatase 74 D (39-117) U/L Total Protein 7.3 (6.5-8.0) g/dL Albumin 4.0 (3.5-5.0) g/dL <MASOOD Santiago - Last Filed: 07/02/22 19:35> Imaging Data CT scan brain/cervical/chest/abd/pelvis: Attestation: I personally reviewed and interpreted this imaging study as follows: <MASOOD Santiago - Last Filed: 07/02/22 19:35> Radiologist's impression: FINDINGS: HEAD: There is no evidence of acute intracranial hemorrhage or territorial infarction. No abnormal mass-effect or midline shift. No extra-axial fluid collections.? Pittman to white matter differentiation is well preserved. The ventricles are normal in size and configuration. ? A few foci of hypoattenuation in the subcortical and periventricular white matter are most consistent with chronic microangiopathic changes. Calcific atherosclerosis is present within the cavernous segments of the internal carotid arteries. The soft tissues and osseous structures are normal.? The sinuses and mastoid air cells are clear. CERVICAL SPINE: Vertebral body heights are normal. No fractures of the vertebral bodies or posterior elements. Vertebral alignment is normal. No subluxation. Degenerative changes are present at the? craniocervical and atlantoaxial articulations, though normal alignment is maintained. Intervertebral disc heights are normal. Minimal degenerative osteophytic spurring at C6-C7. Facet joints are normal. Central canal and neural foramina appear patent without appreciable stenoses. 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 The carotid arteries are retropharyngeal in position. Mild calcific atherosclerosis. Imaged portions of the lung apices are clear. CT/CT head/brain wo IV con IMPRESSION: 1. No acute intracranial pathology. 2. No acute fracture or malalignment in the cervical spine.FINDINGS: CHEST: VASCULAR: The aorta is unremarkable; no evidence of dissection, aneurysm, or traumatic aortic injury. Incidental note is made of an apparent right subclavian artery. The central pulmonary arteries enhance normally. AORTIC ISTHMUS: Normal. MEDIASTINUM: No mediastinal fluid or hematoma. A tiny 3 mm left thyroid nodule is seen which should need no further follow-up. No hilar or mediastinal lymphadenopathy. LUNG: No nodules, mass, or focal consolidation. PLEURA: No pleural effusion. No pneumothorax.? No pleural mass or thickening. CHEST WALL/AXILLA: Unremarkable. ABDOMEN/PELVIS : LIVER : The liver is normal in size, shape, and attenuation. No focal hepatic lesion or biliary ductal dilatation is present.? GALLBLADDER, AND BILIARY TREE The gallbladder contains multiple small stones at the gallbladder neck without obvious pericholecystic inflammatory changes. PANCREAS: Normal; no mass or surrounding fluid.? SPLEEN: Small size.? No focal lesion.? ADRENAL GLANDS: Normal; no mass.? KIDNEYS AND URETERS: The kidneys are normal in size, shape, and attenuation. No hydronephrosis, hydroureter, or calculi. ? URINARY BLADDER: No focal mass or wall thickening seen.? No bladder calculi.? GASTROINTESTINAL TRACT: A small hiatal hernia is present. Stomach and small bowel non-dilated. Few scattered colonic diverticula are seen. No colonic wall thickening or pericolonic inflammatory changes.? Normal appendix. VASCULAR STRUCTURES: There is no evidence of aortic or iliac injury. The inferior vena cava is intact. 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 ACTIVE BLEEDING: No. LYMPH NODES: No lymphadenopathy. The aorta has infrarenal calcified plaque without aneurysm.? PELVIC VISCERA: Symmetric wall thickening of the bladder FREE FLUID: None. ABDOMINAL WALL: Small right inguinal hernia seen containing only fat.? OSSEOUS STRUCTURES : No clavicle or scapula fracture.? No displaced rib fracture seen. No sternal fracture seen.Normal sagittal alignment of the thoracic and lumbar spine.? Vertebral body and disc heights are maintained; no compression fracture.? Posterior elements intact. No sacral or pelvic fracture,? The visualized hips are intact. CT/CT abdomen pelvis w IV con IMPRESSION: 1.? No evidence of a traumatic injury in the chest abdomen or pelvis. 2.? 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, 3 mm thyroid nodule which needs no further follow-up, cholelithiasis without cholecystitis, small hiatal hernia, colonic diverticula without diverticulitis and other findings described above <MASOOD Santiago - Last Filed: 07/02/22 19:35> Discharge Plan Discharge Clinical Impression: Acute hip pain, Ecchymosis, Falls <MASOOD Mccallum - Last Filed: 07/02/22 18:24> Patient Disposition: Home, Self-Care <MASOOD Mccallum - Last Filed: 07/02/22 18:24> Instructions: Fall Prevention (ED), Hip Pain (ED), Ecchymosis (ED) <MASOOD Mccallum - Last Filed: 07/02/22 18:24> Additional Instructions: Your blood work was reassuring. your x-ray was unremarkable Your CT scans were reassuring Take Tylenol at home for pain Please have close follow-up with your doctor <MASOOD Mccallum - Last Filed: 07/02/22 18:24> Prescriptions: No Action aspirin [Adult Low Dose Aspirin] 81 mg tablet,delayed release (DR/EC) 81 mg PO DAILY Qty: 90 3RF atorvastatin 40 mg tablet 40 mg PO DAILY Qty: 90 3RF metoprolol succinate 25 mg tablet extended release 24 hr 25 mg PO DAILY Qty: 90 1RF tramadol 50 mg tablet 1 tab PO BID PRN (Reason: Insomnia) acetaminophen 500 mg tablet 500 mg PO Q8H mirtazapine 30 mg tablet 1 tab PO BEDTIME docusate sodium 100 mg capsule 1 cap PO BID sertraline 25 mg tablet 1 tab PO DAILY polyethylene glycol 3350 17 gram/dose powder 17 g PO DAILY albuterol sulfate 90 mcg/actuation HFA aerosol inhaler 2 puff PO Q4-6H PRN (Reason: Wheezing) ondansetron 4 mg tablet,disintegrating 4 mg PO Q8H PRN (Reason: nausea and vomiting) Qty: 20 0RF ondansetron 4 mg tablet,disintegrating 4 mg PO Q8H PRN (Reason: nausea and vomiting) Qty: 20 0RF cefuroxime axetil 250 mg tablet 250 mg PO BID 7 Days Qty: 14 0RF acetaminophen-codeine 300-30 mg tablet 1 tab PO Q8H PRN (Reason: pain) Qty: 20 0RF acetaminophen [Tylenol Extra Strength] 500 mg tablet 500 mg PO Q6H PRN (Reason: fever or pain) Qty: 14 0RF naproxen 500 mg tablet 500 mg PO BID PRN (Reason: pain) 10 Days Qty: 20 0RF amitriptyline 10 mg tablet 10 mg PO DAILY sumatriptan succinate 50 mg tablet 50 mg PO Q2-4H PRN (Reason: Migraine Headache) Rx Instructions: do not exceed 4 doses per 24 hrs omeprazole 10 mg capsule,delayed release(DR/EC) 10 mg PO DAILY (DME) Wrist Brace Misc See Rx Instructions .MEDSUPPLY Qty: 1 0RF Rx Instructions: COMFORT FORM WRIST, RT, S Disp 1 REfill 0 trazodone 50 mg tablet 50 mg PO BEDTIME ibuprofen 200 mg tablet 200 mg PO Q6H PRN (Reason: pain) Qty: 30 0RF <MASOOD Mccallum - Last Filed: 07/02/22 18:24> Referrals: [facility] [Primary Care Provider] - 3 days <MASOOD Mccallum - Last Filed: 07/02/22 18:24>
[2022-07-02 14:29] VITALS: BP 146/58; PULSE 57; RESP 16; O2SAT 98
--- OUTSIDE RECORDS SUMMARY | 2022-07-02 14:37 | XMS_ITS ---
:1940 Author Care Team Providers Name Role Phone [facility] Referring Provider [phone] [facility] Referring Provider [phone] Allergies None recorded. Medications Name Status Start Date Stop Date ? ? acetaminophen 300 mg-codeine 30 mg tablet Active ? Not available TAKE 1 TABLET BY MOUTH EVERY 8 HOURS NEEDED FOR PAIN acetaminophen 500 mg tablet Active ? Not available TOME MAKAYLA TABLETA CADA SEIS HORAS CUANDO SEA NECESARIO PARA EL D OLOR OR FEVER albuterol sulfate HFA 90 mcg/actuation aerosol inhaler Active ? Not available amitriptyline 10 mg tablet Active ? Not a vailable TAKE 1 TABLET BY MOUTH AT BEDTIME amoxicillin 500 mg capsule Active ? Not a vailable TAKE 1 CAPSULE BY MOUTH EVERY 8 HOURS UNTIL FINISHED aspirin 81 mg tablet,delayed release Active ? Not available TAKE 1 TABLET BY MOUTH EVERY MORNING atorvastatin 40 mg tablet Active ? Not av ailable TAKE 1 TABLET BY MOUTH EVERY MORNING blood pressure test kit-large cuff Active ? Not available USE TO CHECK BLOOD PRESSURE DIRECTED cefuroxime axetil 250 mg tablet Active ? Not available TAKE 1 TABLET BY MOUTH TWICE DAILY UNTIL FINISHED chlorhexidine gluconate 0.12 % mouthwash Active ? Not available RINSE FOR 30 SECONDS WITH A HALF OUNCE (15ml) TWICE DAILY, SPIT OUT -- DO NOT SWALLOW. clopidogrel 75 mg tablet Active ? Not carey ilable TAKE 1 TABLET BY MOUTH EVERY MORNING docusate sodium 100 mg capsule Active ? N ot available TAKE 1 CAPSULE BY MOUTH TWICE DAILY hydrocortisone 2.5 % topical cream with perineal applicator Acti ve ? Not available APPLY TOPICALLY TO THE AFFECTED AREA FO UR TIMES DAILY NEEDED FOR HEMORRHOIDS ibuprofen 200 mg tablet Active ? Not avai lable TAKE 1 TABLET BY MOUTH EVERY 6 HOURS NEEDED FOR PAIN metoprolol succinate ER 25 mg tablet,extended release 24 hr Acti ve ? Not available TAKE 1 TABLET BY MOUTH EVERY MORNING mirtazapine 30 mg tablet Active ? Not carey ilable TAKE 1 TABLET BY MOUTH AT BEDTIME naproxen 500 mg tablet Active ? Not avail able TOME MAKAYLA TABLETA DOS VECES AL D A CUAND O SEA NECESARIO PARA EL DOLOR POR 10 D ondansetron 4 mg disintegrating tablet Active ? Not available DISSOLVE 1 TABLET ON THE TONGUE EVERY 8 HOURS NEED ED FOR NAUSEA OR VOMITING ondansetron HCl 4 mg tablet Active ? Not available TAKE 1 TABLET BY MOUTH TWICE DAILY NEEDED FOR NAUSEA Pain Reliever (acetaminophen) 325 mg tablet Active ? Not available TAKE 1 TABLET BY MOUTH EVERY 4 HOURS NEEDED pantoprazole 40 mg tablet,delayed release Active ? Not available TAKE 1 TABLET BY MOUTH TWICE DAILY IN THE MORNING AND IN THE EV ENING polyethylene glycol 3350 17 gram/dose oral powder Active ? Not available TAKE 17 GM MIXED IN 8 OUNCES OF WATER ONCE DAILY DIRECTED sertraline 25 mg tablet Active ? Not avai lable TAKE 1 TABLET BY MOUTH EVERY MORNING sertraline 50 mg tablet Active ? Not avai lable TAKE 1 TABLET BY MOUTH EVERY MORNING sumatriptan 50 mg tablet Active ? Not carey ilable TAKE 1 TABLET BY MOUTH AT ONSET OF MIGR YARI. MAY REPEAT AFTER 2 HOURS IF HEADACHE RETURNS. NOT TO EXCEED 200 MG IN 24 HOURS tramadol 50 mg tablet Active ? Not availa ble TAKE 1 TABLET BY MOUTH EVERY 12 HOURS NEEDED trazodone 50 mg tablet Active ? Not avail able TAKE 1 TABLET BY MOUTH AT BEDTIME NEEDED Problems None recorded. Procedures None recorded. Results Lab Results None recorded. Past Encounters 04/22/2022 Pain in Wrist Ralf Valladares MD: [address] [facility], [place] [address], Ph. Social History None recorded. Vaccine List None recorded. Plan of Care Reminders Provider Appointments None recorded. ? ? Lab None recorded. ? ? Referral None recorded. ? ? Procedures None recorded. ? ? Surgeries None recorded. ? ? Imaging None recorded. ? ? Vitals None recorded.
--- OUTSIDE RECORDS SUMMARY | 2022-07-02 14:37 | XMS_ITS | Encounter Summary ---
:1940 Author Care Team Providers Name Role Phone [facility] Referring Provider [phone] [facility] Referring Provider [phone] Reason for Visit None recorded. Assessment and Plan Assessment Note I have reviewed and agree with the asse ssment and plan as documented by the emergency care attendant. I provided real-time medical direction for this encounter and was immediately available to provide additional phone-based assistance as needed. Patient seen for wrist discomfort s/p kn own ulnar fracture with prior splinting. Per report pt well appearing AVSS with no distal RUE discoloration. R hand warm and well perfused, mobile, and sensate pe r report. Splint anum wrap loosened to ex amine extremity. Tx w/ low dose ketorolac injection, advised apap use and ice / elevation. PATIENT WOULD BENEFIT FROM ASSISTANCE WI TH EXPEDITED ORTHOPEDIC APPOINTMENT. 1. Pain in wrist Discussion Note: None recorded.Patient educational handouts: No information available. Plan of Care Reminders Provider Appointments None recorded. ? ? Lab None recorded. ? ? Referral None recorded. ? ? Procedures None recorded. ? ? Surgeries None recorded. ? ? Imaging None recorded. ? ? Medications Name Start Date ? ? acetaminophen 300 mg-codeine 30 mg tablet ? TAKE 1 TABLET BY MOUTH EVERY 8 HOURS NEEDED FOR PA IN acetaminophen 500 mg tablet ? TOME MAKAYLA TABLETA CADA SEIS HORAS CUANDO SEA NECESARIO PARA EL DOLOR OR FEVER albuterol sulfate HFA 90 mcg/actuation aerosol inhaler ? INHALE 2 PUFFS BY MOUTH EVERY 4 TO 6 HOURS NEEDED amitriptyline 10 mg tablet ? TAKE 1 TABLET BY MOUTH AT BEDTIME amoxicillin 500 mg capsule ? TAKE 1 CAPSULE BY MOUTH EVERY 8 HOURS UNTIL FINISHED aspirin 81 mg tablet,delayed release ? TAKE 1 TABLET BY MOUTH EVERY MORNING atorvastatin 40 mg tablet ? TAKE 1 TABLET BY MOUTH EVERY MORNING blood pressure test kit-large cuff ? USE TO CHECK BLOOD PRESSURE DIRECTED cefuroxime axetil 250 mg tablet ? TAKE 1 TABLET BY MOUTH TWICE DAILY UNTIL FINISHED chlorhexidine gluconate 0.12 % mouthwash ? RINSE FOR 30 SECONDS WITH A HALF OUNCE (15ml) TWICE DAILY, SPIT OUT -- DO NOT SWALLOW. clopidogrel 75 mg tablet ? TAKE 1 TABLET BY MOUTH EVERY MORNING docusate sodium 100 mg capsule ? TAKE 1 CAPSULE BY MOUTH TWICE DAILY hydrocortisone 2.5 % topical cream with perineal appli cator ? APPLY TOPICALLY TO THE AFFECTED AREA FO UR TIMES DAILY NEEDED FOR HEMORRHOIDS ibuprofen 200 mg tablet ? TAKE 1 TABLET BY MOUTH EVERY 6 HOURS NEEDED FOR PA IN metoprolol succinate ER 25 mg tablet,extended release 24 hr ? TAKE 1 TABLET BY MOUTH EVERY MORNING mirtazapine 30 mg tablet ? TAKE 1 TABLET BY MOUTH AT BEDTIME naproxen 500 mg tablet ? TOME MAKAYLA TABLETA DOS VECES AL D A CUAND O SEA NECESARIO PARA EL DOLOR POR 10 D ondansetron 4 mg disintegrating tablet ? DISSOLVE 1 TABLET ON THE TONGUE EVERY 8 HOURS NEED ED FOR NAUSEA OR VOMITING ondansetron HCl 4 mg tablet ? TAKE 1 TABLET BY MOUTH TWICE DAILY NEEDED FOR NAUS EA Pain Reliever (acetaminophen) 325 mg tablet ? TAKE 1 TABLET BY MOUTH EVERY 4 HOURS NEEDED pantoprazole 40 mg tablet,delayed release ? TAKE 1 TABLET BY MOUTH TWICE DAILY IN THE MORNING AND IN THE EVENING polyethylene glycol 3350 17 gram/dose oral powder ? TAKE 17 GM MIXED IN 8 OUNCES OF WATER ONCE DAILY D IRECTED sertraline 25 mg tablet ? TAKE 1 TABLET BY MOUTH EVERY MORNING sertraline 50 mg tablet ? TAKE 1 TABLET BY MOUTH EVERY MORNING sumatriptan 50 mg tablet ? TAKE 1 TABLET BY MOUTH AT ONSET OF MIGR YARI. MAY REPEAT AFTER 2 HOURS IF HEADACHE RETURNS. NOT TO EXCEED 200 MG IN 24 HOURS tramadol 50 mg tablet ? TAKE 1 TABLET BY MOUTH EVERY 12 HOURS NEEDED trazodone 50 mg tablet ? TAKE 1 TABLET BY MOUTH AT BEDTIME NEEDED Medications Administered None recorded. Vitals None recorded. Results Lab Results None recorded. Allergies None recorded. Problems None recorded. Procedures None recorded. Vaccine List None recorded. Social History None recorded. Functional Status Unknown. Past Encounters 04/22/2022 Pain in Wrist Ralf Valladares MD: [address] [facility], [place] [address], Ph. History of Present Illness Note: <p><strong>HPI: </strong>

Patient with 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 Fell 03/14/22 with episode of dizziness, + UTI. Fracture of Wrist Right Distal Ulnar fracture. Splinted. Never made appt. with Ortho. Returned to ED 04/19/22 DVT RUE negative.Now with appt. 04/25/22 930am but is in severe pain.
....................................... ................................................................................ ......................

<strong>CRC Nursing Assessment: </strong>

Comments: Per STUDENT RECRUITER, if possible please avoid Bactrim as treatment, as member has had an BRIANNE in the past with use of this abx</p><p>.............................................................. ...............................................................................< br>
<strong>Roving Sizer Note: </strong>

eval for pain after right wrist FX that is splinted. pt has a ortho appointment on 04/25. pt states her pain has been increasing over the last few days, pt has not taken motrin or tylenol- not sure they have any. pt alert to baseline, can move fingers- does not look swollen, good CSM, in a soft cast. family members in attendance care for pt. [facility] ordered 15 mg toradol for pain, given with some relief. elevated arm on pillow, put ice pack on wrist area with some relief. [facility] to call and try and get an earlier appointment for ortho
. ................................................................................ ..................... .......................................

<strong>Disposition: </strong>

Fulfilled</p> Review of Systems None recorded. Physical Exam None recorded.
[2022-07-02 15:07] LABS: MANUAL DIFF FLAG NO
[2022-07-02 15:09] LABS: Basophils Percent Auto 0.3 % (0-2); Eosinophils Absolute Auto 0.1 X10*3/uL (0.0-0.4); Eosinophils Percent Auto 0.6 % (0-4); Hematocrit 35.1 % (37.0-47.0); Hemoglobin 12.1 g/dl (12.0-16.0); Imm Gran Abs Auto 0.04 X10*3/uL (0.00-0.03); Imm Gran Pct Auto 0.3 % (0.0-0.4); Lymphocytes Absolute Auto 4.1 X10*3/uL (1.2-4.9); Lymphocytes Percent Auto 34.5 % (20-40); Mean Corpuscular HGB Conc 34.5 g/dl (31.0-35.0); Mean Corpuscular Hemoglobin 33.2 pg (27.0-33.0); Mean Corpuscular Volume 96.4 fL (80.0-98.0); Mean Platelet Volume 11.8 fL (9.4-12.3); Monocytes Absolute Auto 1.3 X10*3/uL (0.1-1.2); Monocytes Percent Auto 10.7 % (2-11); Neutrophils Absolute Auto 6.3 x10*3/uL (2.0-8.3); Neutrophils Percent Auto 53.6 % (45-73); Platelet Count 266 X10*3/uL (160-400); Red Blood Count 3.64 X10*6/uL (4.20-5.50); Red Cell Distribution Width 13.2 % (11.0-16.0); White Blood Count 11.8 X10*3/uL (4.8-10.8)
[2022-07-02 15:16] LABS: INTERNATIONAL NORM RATIO 1.1 (0.9-1.1); Prothrombin Time 12.2 SEC (10.0-13.1)
[2022-07-02 15:27] LABS: Alanine Aminotransferase 10 U/L (0-31); Alkaline Phosphatase 74 U/L (39-117); Anion Gap 18 (12-20); Aspartate Amino Transferase 20 U/L (5-31); Bilirubin Direct 0.2 mg/dL (0.0-0.5); Bilirubin Total 0.4 mg/dL (0.0-1.0); Blood Urea Nitrogen 10 mg/dL (9-16); Calcium 9.3 mg/dL (8.4-10.2); Carbon Dioxide 22 mmol/L (22-29); Chloride 104 mmol/L (96-108); Estimated Glomerular Filt Rate > 60; Glucose Random 104 mg/dL (60-115); Sodium 140 mmol/L (135-145); Total Protein 7.3 g/dL (6.5-8.0)
[2022-07-02] MEDS: iohexoL 350 MG/ML 100 ML INFUS..BTL IV (16:36)
[2022-07-02] MEDS: 0.9 % Sodium Chloride 500 ML 999 ML IV ×2 (17:17→19:00)
== END 2022-07-02 19:43 | disposition home or self-care (01) ==
PROVIDERS: Physician Assistant; Emergency Provider Emergency Medicine
DX: M25.551 Pain in right hip (principal); S30.0XXA Contusion of lower back and pelvis, initial encounter; W19.XXXA Unspecified fall, initial encounter; I10 Essential (primary) hypertension; E78.5 Hyperlipidemia, unspecified; I69.398 Other sequelae of cerebral infarction; H53.9 Unspecified visual disturbance; Z79.82 Long term (current) use of aspirin; Z79.02 Long term (current) use of antithrombotics/antiplatelets; Z79.899 Other long term (current) drug therapy; Y93.9 Activity, unspecified; Y92.039 Unspecified place in apartment as the place of occurrence of the external cause; Y99.9 Unspecified external cause status
CPT/HCPCS: 36415; 70450; 71260; 72125; 73502; 74177; 80048; 80076; 85025; 85610; 99283; 99284; Q9967

== ENCOUNTER 2022-09-01 23:05 | Emergency (ER) | payer OTHER, SELFPAY ==
--- NOTE | ~2022-09-01 | CT_ITS ---
EXAMINATION: NONCONTRAST HEAD CT NONCONTRAST CERVICAL SPINE CT INDICATION INFORMATION: Fall, pain COMPARISON: 07/02/2022 TECHNIQUE: Separate noncontrast CT examinations of the head and cervical spine were performed. Coronal head CT images and coronal and sagittal cervical spine images were created at the technologist workstation. DLP: 829 mGy-cm DOSE LOWERING TECHNIQUES: This CT examination was performed using dose optimization techniques as appropriate, variously including the following: - Automated exposure control - Adjustment of mA and/or kV according to patient size (this includes techniques or standardized protocols for targeted exams were dose is matched to indication/reason for exam; i.e. extremities or head) - Use of iterative reconstruction technique FINDINGS: Head: There is no evidence of acute intracranial hemorrhage or territorial infarction. No abnormal mass-effect or midline shift is seen. Pittman to white matter differentiation is well preserved. No extra-axial fluid collections are identified. The ventricles are normal in size. There is mild periventricular white matter hypoattenuation consistent with chronic small vessel ischemic disease. Mild volume loss is noted. The osseous structures and soft tissues are normal. The mastoid air cells and visualized portions of the paranasal sinuses are well-aerated. Cervical spine: There is anatomic alignment of the vertebral bodies and posterior elements. Vertebral body heights are maintained. There is degenerative change at the atlantodens articulation. Intervertebral disc spaces are relatively well-preserved. Endplate osteophytes are noted in the lower cervical spine. No evidence of acute fracture. No prevertebral soft tissue swelling. Visualized portions of the lung apices are unremarkable. The thyroid gland is unremarkable. CT/CT cervical spine wo IV con IMPRESSION: HEAD: No acute intracranial findings. CERVICAL SPINE: No acute findings identified.
[2022-09-01 23:17] VITALS: BP 138/80; BP 154/56; PULSE 52; PULSE 64; RESP 20; TEMP 36.5; O2SAT 96; O2SAT 98; BMI 25.6
--- NOTE | 2022-09-01 23:19 | ECG_ITS ---
Test Reason : FALL Blood Pressure : / mmHG Vent. Rate : 052 BPM Atrial Rate : 052 BPM P-R Int : 142 ms QRS Dur : 086 ms QT Int : 532 ms P-R-T Axes : 063 010 026 degrees QTc Int : 494 ms Sinus bradycardia Otherwise normal ECG When compared with ECG of 14-MAR-2022 02:15, No significant change was found Referred By: Xi Contreras Electronically Signed By:DANYA GONZALEZ MD
--- NOTE | 2022-09-01 23:21 | ED.GENADULT ---
HPI - General Adult General Chief complaint: Altered Mental Status Stated complaint: ams Time Seen by Provider: 09/01/22 23:11 Source: patient and EMS Mode of arrival: EMS Limitations: other (Dementia) History of Present Illness HPI narrative: Patient comes to the emergency room via ambulance. Bystanders called the ambulance after the patient sustained a fall. Seems that the patient was found outside, on the floor in a puddle. The bystanders helped the patient up, took her to her apartment, help her change. They reported to EMS that the patient had diaper that had been changed ?in a while?, they helped her get change. From previous notes, patient lives with a disabled son who is not home frequently. Patient states that she has no pain. Patient states that earlier today she went to the store to buy gum and fell in a pothole. Patient denies any pain anywhere., states that the son that takes care of her is [facility]in [facility] . However, patient does have history of dementia and it is unclear if patient's statements are correct. Related Data Home Medications Medication Instructions Recorded Confirmed amitriptyline 10 mg tablet 10 mg PO DAILY 08/02/20 07/04/21 omeprazole 10 mg capsule,delayed 10 mg PO DAILY 08/02/20 07/04/21 release sumatriptan succinate 50 mg tablet 50 mg PO Q2-4H PRN Migraine 08/02/20 07/04/21 Headache acetaminophen 500 mg tablet 500 mg PO Q8H 06/27/21 07/04/21 albuterol sulfate 90 mcg/actuation 2 puff PO Q4-6H PRN Wheezing 06/27/21 07/04/21 aerosol inhaler docusate sodium 100 mg capsule 1 cap PO BID 06/27/21 07/04/21 mirtazapine 30 mg tablet 1 tab PO BEDTIME 06/27/21 07/04/21 polyethylene glycol 3350 17 17 g PO DAILY 06/27/21 07/04/21 gram/dose oral powder sertraline 25 mg tablet 1 tab PO DAILY 06/27/21 07/04/21 tramadol 50 mg tablet 1 tab PO BID PRN Insomnia 06/27/21 07/04/21 trazodone 50 mg tablet 50 mg PO BEDTIME 09/18/21 Previous Rx's Medication Instructions Recorded arm brace (Wrist Brace) #1 ea 08/09/20 aspirin 81 mg tablet,delayed 81 mg PO DAILY #90 tabs 02/26/21 release (Adult Low Dose Aspirin) atorvastatin 40 mg tablet 40 mg PO DAILY #90 tabs 02/26/21 metoprolol succinate 25 mg 25 mg PO DAILY #90 tabs 02/26/21 tablet,extended release 24 hr ondansetron 4 mg disintegrating 4 mg PO Q8H PRN nausea and 03/13/21 tablet vomiting #20 tabs ondansetron 4 mg disintegrating 4 mg PO Q8H PRN nausea and 06/27/21 tablet vomiting #20 tabs ibuprofen 200 mg tablet 200 mg PO Q6H PRN pain #30 tabs 09/18/21 acetaminophen 300 mg-codeine 30 mg 1 tab PO Q8H PRN pain #20 tabs 03/14/22 tablet cefuroxime axetil 250 mg tablet 250 mg PO BID 7 days #14 tabs 03/14/22 acetaminophen 500 mg tablet 500 mg PO Q6H PRN fever or pain 04/19/22 (Tylenol Extra Strength) #14 tabs naproxen 500 mg tablet 500 mg PO BID PRN pain 10 days #20 04/19/22 tabs Allergies Allergy/AdvReac Type Severity Reaction Status Date / Time No Known Allergies Allergy Unknown UNKNOWN Verified 05/23/22 09:44 [NO KNOWN ALLERGIES] Review of Systems Review of Systems: Constitutional : No Weight loss, No Fever, No Chills, No Night Sweats, No Fatigue, No Malaise ENT/Mouth : No Hearing loss, No Ear Pain, No Nasal Congestion, No Sinus Pain, No Hoarseness, No sore throat, No Rhinorrhea, No Swallowing Difficulty Eyes: No Eye Pain, No Swelling, No Redness, No Foreign Body, No Discharge, No Vision Changes Cardiovascular : No Chest Pain, No SOB, No Dyspnea on Exertion, No Orthopnea, No Edema, No Palpitations Respiratory : No Cough, No Sputum, No Wheezing, No Smoke Exposure, No Dyspnea Gastrointestinal : No Nausea, No Vomiting, No Diarrhea, No Constipation, No abdominal Pain, No Hematochezia, No Melena Genitourinary : no irregular bleeding, No Dysuria, No Urinary Frequency, No Hematuria, No Urinary Incontinence, No Urgency, No Flank Pain, No Urinary Flow Changes, No Hesitancy Musculoskeletal : No joint pain, No Myalgias, No Joint Swelling Skin : No Skin Lesions, No rash Neuro : No Weakness, No Numbness, No Paresthesias, No Loss of Consciousness, No Dizziness, No Headache Psych : No Anxiety/Panic, No Depression, No SI/HI/AH/VH, No Social Issues, Heme/Lymph: No Bruising, No Bleeding,No Lymphadenopathy Endocrine : No Polyuria, No Polydipsia, No Temperature Intolerance [facility] Past Medical History Medical History Abnormal nuclear stress test Coronary artery disease CVA, old, disturbances of vision (~09/2019) Dementia Gallstones HLD (hyperlipidemia) HTN (hypertension) NSTEMI (non-ST elevated myocardial infarction) Family History Family History Father No problems noted. Mother No problems noted. 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 Oriented X2. No acute distress. Eyes: Pupils equal, round and reactive to light. ENT: Pharynx normal. Neck: Normal inspection. Neck supple. No lymph nodes noted. No crepitus CVS: Normal heart rate and rhythm. Pulses normal. Normal S1 and S2 Respiratory: No respiratory distress. Breath sounds normal. No Wheezing. No rales Abdomen: Soft and nontender. No rigidity. No distention. Skin: Skin warm and dry. Normal skin color. Normal skin turgor. Patient has multiple old ecchymosis in both knees, hips Extremities: No lower extremity edema. No Lacerations. No Rash Neuro: Oriented X 2. No motor deficit. No sensory deficit. Moving all extremities. No slurred speech. CN 2 through 12 grossly intact Psych: calm, cooperative, normal affect Course Course Course Narrative: All of patient's labs and imaging pending. Patient's social situation is unclear at this time, after patient is medically cleared, we will consult case management and PT. Patient's labs at baseline, urinalysis and urine tox pending. Case management and physical therapy evaluation pending in the morning. Physician observation started 01:07 Medical Decision Making Lab Data Result diagrams: 09/02/22 00:03 09/02/22 00:03 Labs: Lab Results 09/02/22 09/02/22 09/02/22 Range/Units 00:03 00:03 00:03 WBC 6.9 (4.8-10.8) X10*3/uL RBC 4.19 L (4.20-5.50) X10*6/uL Hgb 14.2 (12.0-16.0) g/dl Hct 41.9 (37.0-47.0) % MCV 100.0 H (80.0-98.0) fL MCH 33.9 H (27.0-33.0) pg MCHC 33.9 (31.0-35.0) g/dl RDW 14.9 (11.0-16.0) % Plt Count 293 (160-400) X10*3/uL MPV 11.4 (9.4-12.3) fL Immature Gran % (Auto) 0.1 (0.0-0.4) % Neut % (Auto) 47.6 (45-73) % Lymph % (Auto) 39.0 (20-40) % Banner % (Auto) 11.3 H (2-11) % Eos % (Auto) 1.3 (0-4) % Baso % (Auto) 0.7 (0-2) % Lymph # (Auto) 2.7 (1.2-4.9) X10*3/uL Banner # (Auto) 0.8 (0.1-1.2) X10*3/uL Eos # (Auto) 0.1 (0.0-0.4) X10*3/uL Baso # (Auto) 0.1 (0.0-0.2) X10*3/uL Abs Immat Gran (auto) 0.01 (0.00-0.03) X10*3/uL Absolute Neuts (auto) 3.3 (2.0-8.3) x10*3/uL Absolute Nucleated RBC 0.000 (0.0-0.012) X10*3/uL Nucleated RBC % (auto) 0.0 (0.0-0.2) /100WBC Sodium 137 (135-145) mmol/L Potassium 4.2 (3.3-5.1) mmol/L Chloride 102 (96-108) mmol/L Carbon Dioxide 26 (22-29) mmol/L Anion Gap 13 (12-20) BUN 18 H (9-16) mg/dL Creatinine 0.80 (0.5-1.4) mg/dL Estim Creat Clear Calc 48.1 Estimated GFR > 60 Random Glucose 159 H (60-115) mg/dL Calcium 10.0 D (8.4-10.2) mg/dL Total Bilirubin 0.6 (0.0-1.0) mg/dL Direct Bilirubin < 0.2 (0.0-0.5) mg/dL AST 27 (5-31) U/L ALT 11 (0-31) U/L Alkaline Phosphatase 77 (39-117) U/L Total Creatine Kinase 95 (26-140) U/L Troponin I High Sens 7.0 D (<3.5-17.0) ng/L Total Protein 8.0 (6.5-8.0) g/dL Albumin 4.2 (3.5-5.0) g/dL Ethyl Alcohol < 10 mg/dL COVID-19 (TC) (Negative) COVID-19 Clin Com 09/02/22 Range/Units 00:03 WBC (4.8-10.8) X10*3/uL RBC (4.20-5.50) X10*6/uL Hgb (12.0-16.0) g/dl Hct (37.0-47.0) % MCV (80.0-98.0) fL MCH (27.0-33.0) pg MCHC (31.0-35.0) g/dl RDW (11.0-16.0) % Plt Count (160-400) X10*3/uL MPV (9.4-12.3) fL Immature Gran % (Auto) (0.0-0.4) % Neut % (Auto) (45-73) % Lymph % (Auto) (20-40) % Banner % (Auto) (2-11) % Eos % (Auto) (0-4) % Baso % (Auto) (0-2) % Lymph # (Auto) (1.2-4.9) X10*3/uL Banner # (Auto) (0.1-1.2) X10*3/uL Eos # (Auto) (0.0-0.4) X10*3/uL Baso # (Auto) (0.0-0.2) X10*3/uL Abs Immat Gran (auto) (0.00-0.03) X10*3/uL Absolute Neuts (auto) (2.0-8.3) x10*3/uL Absolute Nucleated RBC (0.0-0.012) X10*3/uL Nucleated RBC % (auto) (0.0-0.2) /100WBC Sodium (135-145) mmol/L Potassium (3.3-5.1) mmol/L Chloride (96-108) mmol/L Carbon Dioxide (22-29) mmol/L Anion Gap (12-20) BUN (9-16) mg/dL Creatinine (0.5-1.4) mg/dL Estim Creat Clear Calc Estimated GFR Random Glucose (60-115) mg/dL Calcium (8.4-10.2) mg/dL Total Bilirubin (0.0-1.0) mg/dL Direct Bilirubin (0.0-0.5) mg/dL AST (5-31) U/L ALT (0-31) U/L Alkaline Phosphatase (39-117) U/L Total Creatine Kinase (26-140) U/L Troponin I High Sens (<3.5-17.0) ng/L Total Protein (6.5-8.0) g/dL Albumin (3.5-5.0) g/dL Ethyl Alcohol mg/dL COVID-19 (TC) Negative (Negative) COVID-19 Clin Com See Note Discharge Plan Discharge Clinical Impression: Fall, Dementia Patient Disposition: Still a Patient Prescriptions: No Action aspirin [Adult Low Dose Aspirin] 81 mg tablet,delayed release (DR/EC) 81 mg PO DAILY Qty: 90 3RF atorvastatin 40 mg tablet 40 mg PO DAILY Qty: 90 3RF metoprolol succinate 25 mg tablet extended release 24 hr 25 mg PO DAILY Qty: 90 1RF tramadol 50 mg tablet 1 tab PO BID PRN (Reason: Insomnia) acetaminophen 500 mg tablet 500 mg PO Q8H mirtazapine 30 mg tablet 1 tab PO BEDTIME docusate sodium 100 mg capsule 1 cap PO BID sertraline 25 mg tablet 1 tab PO DAILY polyethylene glycol 3350 17 gram/dose powder 17 g PO DAILY albuterol sulfate 90 mcg/actuation HFA aerosol inhaler 2 puff PO Q4-6H PRN (Reason: Wheezing) ondansetron 4 mg tablet,disintegrating 4 mg PO Q8H PRN (Reason: nausea and vomiting) Qty: 20 0RF ondansetron 4 mg tablet,disintegrating 4 mg PO Q8H PRN (Reason: nausea and vomiting) Qty: 20 0RF cefuroxime axetil 250 mg tablet 250 mg PO BID 7 Days Qty: 14 0RF acetaminophen-codeine 300-30 mg tablet 1 tab PO Q8H PRN (Reason: pain) Qty: 20 0RF acetaminophen [Tylenol Extra Strength] 500 mg tablet 500 mg PO Q6H PRN (Reason: fever or pain) Qty: 14 0RF naproxen 500 mg tablet 500 mg PO BID PRN (Reason: pain) 10 Days Qty: 20 0RF amitriptyline 10 mg tablet 10 mg PO DAILY sumatriptan succinate 50 mg tablet 50 mg PO Q2-4H PRN (Reason: Migraine Headache) Rx Instructions: do not exceed 4 doses per 24 hrs omeprazole 10 mg capsule,delayed release(DR/EC) 10 mg PO DAILY (DME) Wrist Brace Misc See Rx Instructions .MEDSUPPLY Qty: 1 0RF Rx Instructions: COMFORT FORM WRIST, RT, S Disp 1 REfill 0 trazodone 50 mg tablet 50 mg PO BEDTIME ibuprofen 200 mg tablet 200 mg PO Q6H PRN (Reason: pain) Qty: 30 0RF
[2022-09-01 23:30] VITALS: BP 154/56; PULSE 52; RESP 20; TEMP 37.1; O2SAT 96
[2022-09-01 23:35] VITALS: BMI 25.4
[2022-09-02 00:08] LABS: MANUAL DIFF FLAG NO
[2022-09-02 00:09] LABS: Basophils Absolute Auto 0.1 X10*3/uL (0.0-0.2); Basophils Percent Auto 0.7 % (0-2); Eosinophils Absolute Auto 0.1 X10*3/uL (0.0-0.4); Eosinophils Percent Auto 1.3 % (0-4); Hematocrit 41.9 % (37.0-47.0); Hemoglobin 14.2 g/dl (12.0-16.0); Imm Gran Abs Auto 0.01 X10*3/uL (0.00-0.03); Imm Gran Pct Auto 0.1 % (0.0-0.4); Lymphocytes Absolute Auto 2.7 X10*3/uL (1.2-4.9); Mean Corpuscular HGB Conc 33.9 g/dl (31.0-35.0); Mean Corpuscular Hemoglobin 33.9 pg (27.0-33.0); Mean Platelet Volume 11.4 fL (9.4-12.3); Monocytes Absolute Auto 0.8 X10*3/uL (0.1-1.2); Monocytes Percent Auto 11.3 % (2-11); Neutrophils Absolute Auto 3.3 x10*3/uL (2.0-8.3); Neutrophils Percent Auto 47.6 % (45-73); Platelet Count 293 X10*3/uL (160-400); Red Blood Count 4.19 X10*6/uL (4.20-5.50); Red Cell Distribution Width 14.9 % (11.0-16.0); White Blood Count 6.9 X10*3/uL (4.8-10.8)
[2022-09-02 00:30] LABS: COVID-19 Test Negative (Negative); IDNOW Serial# BCCEAD1C
[2022-09-02 00:55] LABS: Alanine Aminotransferase 11 U/L (0-31); Albumin Level 4.2 g/dL (3.5-5.0); Alkaline Phosphatase 77 U/L (39-117); Anion Gap 13 (12-20); Aspartate Amino Transferase 27 U/L (5-31); Bilirubin Direct < 0.2 mg/dL (0.0-0.5); Bilirubin Total 0.6 mg/dL (0.0-1.0); Blood Urea Nitrogen 18 mg/dL (9-16); Carbon Dioxide 26 mmol/L (22-29); Chloride 102 mmol/L (96-108); Creatinine Clr Calc Pharmacy 48.1; Estimated Glomerular Filt Rate > 60; Ethanol < 10 mg/dL; Glucose Random 159 mg/dL (60-115); Potassium 4.2 mmol/L (3.3-5.1); Sodium 137 mmol/L (135-145)
[2022-09-02 03:38] VITALS: BP 119/67; PULSE 68; RESP 16; O2SAT 98
[2022-09-02 05:57] VITALS: BP 134/47; PULSE 56; RESP 16; O2SAT 95
[2022-09-02 07:50] VITALS: BP 134/47; PULSE 56; O2SAT 95
[2022-09-02 08:32] VITALS: BP 112/51; PULSE 54; RESP 16; TEMP 36.5; O2SAT 96
--- NOTE | 2022-09-02 10:17 | PC.NURSE ---
Patient assessed with use of medical sonographer . patient unable to tell me name or but able to tell me situation that lead to her arriving to ED .robert . heart rate regular at 75 beats per minute . breathing even and unlabored . lungs clear throughout . skin pink warm and dry . right knee has old bruising noted . patient ambulated with one assist to bathroom . family at bedside states that there are several family members that assist with patients care at home . Provider aware of conversation . case management to evaluate . patient given coffee and sandwhich . patient aware of plan of care
--- NOTE | 2022-09-02 12:01 | MHC.CM.ED ---
Addendum entered by Laura Bunch 09/02/22 14:34: PT andreyal faxed to Juliana at [facility]. Trying to verify if [facility] will provide home physical therapy or will authorize [facility]. Referral made to [facility] via [facility]. Addendum entered by Laura Bunch 09/02/22 12:49: Met with Raji and patient at bedside. Patient wants to return home with home physical therapy. Patient is active with [facility]. Patient and Raji aware [facility] will have to determine if they will provide therapy services or if they will be referred out. Raji verbalized understanding. Bushra CORREIA aware. Original Note: Attempted to meet with patient in regards to discharge planning. Patient currently sleeping. Patient's grandson, Luis is at bedside. Patient typically lives with her son, Demetrio. However, Demetrio is currently admitted to a facility due to crisis. Patient's granddaughter, Raji & Vince pop have been taking care of patient. T/w spoke with Raji via telephone at [phone].Raji verifies information provided by Luis. PCP is Stef Greer at [facility]. HCP on file at [facility] lists Elizabeth Thao. Raji states Elizabeth hasn't been around for years . Raji also states new HCP was created at PCP's office. T/W spoke with PCP's office. No HCP on file with their office. Met with patient and straw baler. Patient was able to name granddaughter Raji and son, Robby as agents for HCP. HCP completed, signed and witnessed. Original given to patient. Copy placed in chart. Aichamaida and Robby are on their way to the ER to discuss appropriate discharge plan. Continue to monitor for d/c needs.
--- NOTE | 2022-09-02 12:57 | PC.NURSE ---
Patient discharged into care of Granddaughter . went over discharge instructions with caregiver . follow up with primary care . no questions at this time .
== END 2022-09-02 12:59 | disposition home or self-care (01) ==
PROVIDERS: Emergency Provider Emergency Medicine; PCP Internal Medicine Geriatric Medicine
DX: F03.90 Unspecified dementia, unspecified severity, without behavioral disturbance, psychotic disturbance, mood disturbance, and anxiety (principal); Z91.81 History of falling; Z20.822 Contact with and (suspected) exposure to COVID-19; I10 Essential (primary) hypertension; E78.5 Hyperlipidemia, unspecified; Z86.73 Personal history of transient ischemic attack (TIA), and cerebral infarction without residual deficits; Z79.82 Long term (current) use of aspirin; Z79.02 Long term (current) use of antithrombotics/antiplatelets; Z79.899 Other long term (current) drug therapy
CPT/HCPCS: 70450; 72125; 80048; 80076; 82077; 82550; 84484; 85025; 87635; 93005; 97162; 99284; 99285

== ENCOUNTER 2022-10-23 10:00 | Outpatient (REF) | payer OTHER, SELFPAY ==
--- NOTE | ~2022-10-23 | XR_ITS ---
EXAMINATION: XR PELVIS CLINICAL INFORMATION: Pain COMPARISON: None TECHNIQUE: Single frontal view of the pelvis obtained. FINDINGS: There is no radiographic evidence of acute fracture or dislocation. No osteolytic or osteoblastic lesions. Mild degenerative osteoarthritic changes of both hip joints, symphysis pubis and SI joints.. Surrounding soft tissue is unremarkable. XR/XR pelvis 1-2V IMPRESSION: Mild degenerative osteoarthritis. Normal radiograph does not entirely exclude the possibility of hip fracture or contusion, if there is high clinical suspicion for a fracture, MRI might be indicated.
== END 2022-10-23 10:01 | disposition home or self-care (01) ==
LOC: HO.XRAY 10:00
PROVIDERS: Visit Provider Emergency Medicine
DX: M25.551 Pain in right hip (principal)
CPT/HCPCS: 72170

== ENCOUNTER 2022-10-28 11:00 | Outpatient (REF) | payer OTHER, SELFPAY ==
--- NOTE | ~2022-10-28 | US_ITS ---
EXAMINATION: US THYROID CLINICAL INFORMATION: Thyroid nodule. COMPARISON: None TECHNIQUE: Linear transducer grayscale and color Doppler examination with attention to the region of the thyroid. FINDINGS: SIZE: Measurements of the thyroid lobes and nodules are given in sagittal, anteroposterior and transverse dimensions respectively. Right Thyroid Lobe: 5.2 x 1.8 x 1.4 cm, volume 6.5 mL. Parenchyma: The gland echotexture is homogeneous. Thyroid vascularity is mildly increased. Left Thyroid Lobe: 4.8 x 2.1 x 1.7 cm, volume 8.7 mL. Parenchyma: The gland echotexture is homogeneous. Thyroid vascularity is mildly increased. Isthmus: 0.1 cm in maximum AP dimension. Estimated total number of nodules greater than or equal to 1 cm: 0. Psychologist Educational nodules are described as follows: 1. Location: Left mid. Size: 0.4 x 0.3 x 0.3 cm, volume 0.03 mL. Nodule characteristics: Composition: Solid (2). Echogenicity: Hyperechoic (1). Shape: Not taller than wide (0). Margins: Smooth (0). Echogenic Foci: None (0). ACR TI-RADS total points: 3 ACR TI-RADS category: 3 NODES: No lymphadenopathy is seen in the tissue surrounding the thyroid gland. ADDITIONAL FINDINGS: Small simple and colloid cysts are seen bilaterally measuring less than 1 cm. There is a hyperechoic area measuring 0.4 x 0.6 x 0.5 cm inferior to right thyroid lobe, unchanged to previous study. Question parathyroid adenoma. US/US thyroid IMPRESSION: Small nonsuspicious nodule left mid lobe. Small bilateral colloid cysts. TR1 (0 point) and TR 2 (2 points): TR4 (4-6 points): FNA if more than or equal to 1.5 cm in maximum dimension, followup ultrasound in 1, 2, 3 and 5 years if 1 to 1.4 cm in maximum dimension. TR5 (more than or equal to 7 points): FNA if more than or equal to 1 cm in maximum dimension, followup ultrasound every year for 5 years if 0.5 to 0.9 cm in maximum dimension.
== END 2022-10-28 11:01 | disposition home or self-care (01) ==
LOC: HO.US 11:00
PROVIDERS: Visit Provider Internal Medicine Geriatric Medicine
DX: E04.1 Nontoxic single thyroid nodule (principal)
CPT/HCPCS: 76536

== ENCOUNTER 2022-12-19 11:37 | Outpatient (REF) | payer OTHER, SELFPAY | END 2022-12-19 11:38 | disposition home or self-care (01) | LOC: HO.HOSX 11:37 | PROVIDERS: Visit Provider Physician Assistant | DX: Z13.89 Encounter for screening for other disorder (principal) ==

== ENCOUNTER 2023-01-28 09:07 | Outpatient (REF) | payer OTHER, MEDICAID, SELFPAY | END 2023-01-28 09:08 | disposition home or self-care (01) | LOC: HO.HOSX 09:07 | PROVIDERS: Visit Provider Physician Assistant | DX: Z13.89 Encounter for screening for other disorder (principal) ==

== ENCOUNTER 2023-03-06 10:36 | Outpatient (REF) | payer OTHER, SELFPAY ==
--- NOTE | ~2023-03-06 | XR_ITS ---
EXAMINATION: XR HIP, RIGHT CLINICAL INFORMATION: Pain in the right hip COMPARISON: 07/02/2022 TECHNIQUE: Two views of the right hip. FINDINGS: Bones and soft tissues are normal. No fracture. Alignment is anatomic. Hip joint space is maintained. XR/XR hip RT min 2V IMPRESSION: Normal right hip, without interval change.
== END 2023-03-06 10:37 | disposition home or self-care (01) ==
LOC: HO.XRAY 10:36
PROVIDERS: PCP Internal Medicine Geriatric Medicine; Visit Provider Physician Assistant
DX: M25.551 Pain in right hip (principal)
CPT/HCPCS: 73502

== ENCOUNTER 2023-05-21 09:35 | Emergency (ER) | payer OTHER, SELFPAY ==
--- NOTE | ~2023-05-21 | XR_ITS ---
EXAMINATION: XR ANKLE, LEFT CLINICAL INFORMATION: Left ankle swelling. COMPARISON: None available. TECHNIQUE: AP, lateral, and mortise views of the left ankle. FINDINGS: The ankle joint and mortise are intact. There is no acute fracture or dislocation. The tarsal bones are normally aligned. There is mild to moderate soft tissue swelling, more pronounced medially. Mild to moderate atherosclerosis is noted. XR/XR ankle LT min 3V IMPRESSION: 1. Mild to moderate soft tissue swelling, more pronounced medially without acute underlying osseous abnormality. 2. Mild to moderate atherosclerosis.
[2023-05-21 10:04] VITALS: BP 125/47; PULSE 68; RESP 16; TEMP 36.2; O2SAT 96; BMI 25.4
--- NOTE | 2023-05-21 11:50 | ED_ITS ---
HPI - Extremity Problem General Chief complaint: Extremity Problem Stated complaint: Leg swollen Time Seen by Provider: 05/21/23 11:27 Source: patient Mode of arrival: ambulatory Limitations: no limitations History of Present Illness HPI Narrative: this is an 82-year-old female past medical history of dementia, hypertension, hyperlipidemia, CVA, NSTEMI presenting to the emergency department with grandson who is expressing concerns of atraumatic left ankle swelling, patient intermittently complains of pain to left ankle with movement. No known traumas or falls. This has never happened to her before. Patient is not on any water pills or Lasix. According to patient she feels well only has some discomfort with movement of left ankle. No numbness, tingling, chest pain, shortness of breath, headache, vision changes, dizziness or weakness. Related Data Home Medications Medication Instructions Recorded Confirmed amitriptyline 10 mg tablet 10 mg PO DAILY 08/02/20 09/02/22 sumatriptan succinate 50 mg tablet 50 mg PO Q2-4H PRN Migraine 08/02/20 09/02/22 Headache acetaminophen 500 mg tablet 500 mg PO Q8H 06/27/21 09/02/22 albuterol sulfate 90 mcg/actuation 2 puff PO Q4-6H PRN Wheezing 06/27/21 09/02/22 aerosol inhaler docusate sodium 100 mg capsule 1 cap PO BID 06/27/21 09/02/22 mirtazapine 30 mg tablet 1 tab PO BEDTIME 06/27/21 09/02/22 polyethylene glycol 3350 17 17 g PO DAILY 06/27/21 09/02/22 gram/dose oral powder sertraline 25 mg tablet 1 tab PO DAILY 06/27/21 09/02/22 tramadol 50 mg tablet 1 tab PO BID PRN Insomnia 06/27/21 09/02/22 trazodone 50 mg tablet 50 mg PO BEDTIME 09/18/21 09/02/22 amoxicillin 500 mg capsule 1 cap PO Q8H 09/02/22 09/02/22 chlorhexidine gluconate 0.12 % 15 ml PO BID 09/02/22 09/02/22 mouthwash clopidogrel 75 mg tablet 1 tab PO QAM 09/02/22 09/02/22 ondansetron HCl 4 mg tablet 4 mg PO BID PRN Nausea 09/02/22 09/02/22 pantoprazole 40 mg tablet,delayed 1 tab PO DAILY 09/02/22 09/02/22 release Previous Rx's Medication Instructions Recorded arm brace (Wrist Brace) #1 ea 08/09/20 atorvastatin 40 mg tablet 40 mg PO DAILY #90 tabs 02/26/21 metoprolol succinate 25 mg 25 mg PO DAILY #90 tabs 02/26/21 tablet,extended release 24 hr acetaminophen 325 mg tablet 650 mg PO Q6H PRN pain #14 tabs 05/21/23 (Tylenol) Allergies Allergy/AdvReac Type Severity Reaction Status Date / Time No Known Allergies Allergy Unknown UNKNOWN Verified 05/23/22 09:44 [NO KNOWN ALLERGIES] Review of Systems Review of Systems: Constitutional : No Weight loss, No Fever, No Chills, No Fatigue, No Malaise ENT/Mouth : No sore throat, No Rhinorrhea Eyes: No Eye Pain, No Swelling, No Redness Cardiovascular : No Chest Pain, No SOB, No Dyspnea on Exertion, No Orthopnea, No Edema, No Palpitations Respiratory : No Cough, No Sputum, No Wheezing Gastrointestinal : No Nausea, No Vomiting, No Diarrhea, No Constipation, No abdominal Pain, No Hematochezia, No Melena Genitourinary : No Dysuria, No Urinary Frequency, No Hematuria, Musculoskeletal : + joint pain, No Myalgias, + Joint Swelling Skin : No Skin Lesions, No rash Neuro : No Weakness, No Numbness, No Dizziness, No Headache Psych : No Anxiety/Panic, No Depression All other systems reviewed and are negative Yes all other systems are reviewed and are negative REPLACED BY [facility] Past Medical History Attestation statement: The following information was validated with the patient. Source: old records reviewed and nursing notes reviewed Medical History Abnormal nuclear stress test Coronary artery disease CVA, old, disturbances of vision (~09/2019) Dementia Gallstones HLD (hyperlipidemia) HTN (hypertension) NSTEMI (non-ST elevated myocardial infarction) Family History Family History Father No problems noted. Mother No problems noted. 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 Oriented X3.? No acute distress.? Head: Normocephalic, atraumatic, no step-offs or deformities Eyes: Pupils equal, round and reactive to light.? CVS: Normal heart rate and rhythm.? Pulses normal.? Respiratory: No respiratory distress.? Breath sounds normal.? Abdomen: Soft and nontender.? Skin: Skin warm and dry.? Normal skin color.? Normal skin turgor.? Extremities: No lower extremity edema.? No calf ttp, negative quynh b/l.. 5/5 strength to bilateral upper and lower extremities. Full rom to b/l ankles slight discomfort to L ankle w/ rom. no stepoffs or deformities. swelling to entire L foot and ankle. NO TTP to ankle. 2+ DP, AT. PT b/l. No foot drop b/l. Normal sensation distally. Back: No midline tenderness, no C-spine tenderness, full range of motion, no CVA tenderness bilaterally Neuro: Oriented X 3.? No motor deficit.? No sensory deficit. CN 2-12 intact Course Reevaluation(s) Reevaluation #1: Patient's CBC appears to be around baseline. No acute findings. Chemistry unremarkable. BNP within normal limits unlikely CHF, patient's D-dimer negative, unlikely PE or DVT. This is likely ankle sprain or strain, patient has dimension is a poor historian she may have rolled her ankle, there is slight discomfort with range of motion of left ankle supporting a musculoskeletal diagnosis. No chest pain or shortness of breath. Ankle x-ray with mild to moderate soft tissue swelling more pronounced medially without acute underlying osseous abnormality. Neurovascular status intact. Due to patient's age crutches are not appropriate. Will given Shubham wrap, discharge home should take Tylenol for pain. Will have her follow-up with the orthopedic team with needed. Educated patient on diagnosis and treatment plan, answered all question, patient verbalizes understanding. At this time patient will be discharged home, advised to return with new or worsening symptoms. Educated on worrisome signs and symptoms and when to return. At this time I feel comfortable discharge home. Time: 12:51 Medications Administered Discontinued Medications Generic Name Dose Route Start Last Admin Trade Name Josh PRN Reason Stop Dose Admin Acetaminophen 975 mg 05/21/23 12:07 05/21/23 12:37 Acetaminophen 325 Mg Tablet PO 05/21/23 12:08 975 mg ONCE ONE Administration Medical Decision Making Medical Decision Making [facility] Narrative: 1158 82 year old female presents w/ atraumatic r ankle swelling & foot swelling X 3 days. No CP or sob. PE significant forNo lower extremity edema.? No calf ttp, negative quynh b/l.. 5/5 strength to bilateral upper and lower extremities. Full rom to b/l ankles slight discomfort to L ankle w/ rom. no stepoffs or deformities. swelling to entire L foot and ankle. NO TTP to ankle. 2+ DP, AT. PT b/l. No foot drop b/l. Normal sensation distally. Likely sprain vs strain. No signs of cellulitis, NV comprpmise, threat to limb, arterial occlusion, chf Plan- dimer, xray Differential Diagnosis Differential Diagnoses: The differential diagnosis associated with the presentation includes Likely sprain vs strain. No signs of cellulitis, NV comprpmise, threat to limb, arterial occlusion, chf Admission/Observation Consideration of admission/observation: Escalation of care including admission/observation considered unlikely Lab Data [facility] Lab Attestation statement: I reviewed the patient's lab results. 05/21/23 12:11 05/21/23 12:11 Labs: Lab Results 05/21/23 05/21/23 05/21/23 Range/Units 12:11 12:11 12:11 WBC 6.8 (4.8-10.8) X10*3/uL RBC 3.78 L (4.20-5.50) X10*6/uL Hgb 12.8 (12.0-16.0) g/dl Hct 37.5 (37.0-47.0) % MCV 99.2 H (80.0-98.0) fL MCH 33.9 H (27.0-33.0) pg MCHC 34.1 (31.0-35.0) g/dl RDW 14.1 (11.0-16.0) % Plt Count 228 (160-400) X10*3/uL MPV 12.0 (9.4-12.3) fL Immature Gran % (Auto) 0.3 (0.0-0.4) % Neut % (Auto) 41.8 L (45-73) % Lymph % (Auto) 42.5 H (20-40) % Bates % (Auto) 11.0 (2-11) % Eos % (Auto) 4.0 (0-4) % Baso % (Auto) 0.4 (0-2) % Lymph # (Auto) 2.9 (1.2-4.9) X10*3/uL Bates # (Auto) 0.8 (0.1-1.2) X10*3/uL Eos # (Auto) 0.3 (0.0-0.4) X10*3/uL Baso # (Auto) 0.0 (0.0-0.2) X10*3/uL Abs Immat Gran (auto) 0.02 (0.00-0.03) X10*3/uL Absolute Neuts (auto) 2.8 (2.0-8.3) x10*3/uL Absolute Nucleated RBC 0.000 (0.0-0.012) X10*3/uL Nucleated RBC % (auto) 0.0 (0.0-0.2) /100WBC D-Dimer High Sensitivty 178 NG/ML Sodium 143 (135-145) mmol/L Potassium 4.3 (3.3-5.1) mmol/L Chloride 109 H (96-108) mmol/L Carbon Dioxide 27 (22-29) mmol/L Anion Gap 11 L (12-20) BUN 7 L (9-16) mg/dL Creatinine 0.73 (0.5-1.4) mg/dL Estim Creat Clear Calc 47.7 Estimated GFR > 60 Random Glucose 109 (60-115) mg/dL Calcium 9.2 D (8.4-10.2) mg/dL Total Bilirubin 0.2 (0.0-1.0) mg/dL AST 18 (5-31) U/L ALT 9 (0-31) U/L Alkaline Phosphatase 96 (39-117) U/L B-Natriuretic Peptide (<100) pg/mL Total Protein 7.3 (6.5-8.0) g/dL Albumin 3.7 (3.5-5.0) g/dL 05/21/23 Range/Units 12:11 WBC (4.8-10.8) X10*3/uL RBC (4.20-5.50) X10*6/uL Hgb (12.0-16.0) g/dl Hct (37.0-47.0) % MCV (80.0-98.0) fL MCH (27.0-33.0) pg MCHC (31.0-35.0) g/dl RDW (11.0-16.0) % Plt Count (160-400) X10*3/uL MPV (9.4-12.3) fL Immature Gran % (Auto) (0.0-0.4) % Neut % (Auto) (45-73) % Lymph % (Auto) (20-40) % Bates % (Auto) (2-11) % Eos % (Auto) (0-4) % Baso % (Auto) (0-2) % Lymph # (Auto) (1.2-4.9) X10*3/uL Bates # (Auto) (0.1-1.2) X10*3/uL Eos # (Auto) (0.0-0.4) X10*3/uL Baso # (Auto) (0.0-0.2) X10*3/uL Abs Immat Gran (auto) (0.00-0.03) X10*3/uL Absolute Neuts (auto) (2.0-8.3) x10*3/uL Absolute Nucleated RBC (0.0-0.012) X10*3/uL Nucleated RBC % (auto) (0.0-0.2) /100WBC D-Dimer High Sensitivty NG/ML Sodium (135-145) mmol/L Potassium (3.3-5.1) mmol/L Chloride (96-108) mmol/L Carbon Dioxide (22-29) mmol/L Anion Gap (12-20) BUN (9-16) mg/dL Creatinine (0.5-1.4) mg/dL Estim Creat Clear Calc Estimated GFR Random Glucose (60-115) mg/dL Calcium (8.4-10.2) mg/dL Total Bilirubin (0.0-1.0) mg/dL AST (5-31) U/L ALT (0-31) U/L Alkaline Phosphatase (39-117) U/L B-Natriuretic Peptide 71 (<100) pg/mL Total Protein (6.5-8.0) g/dL Albumin (3.5-5.0) g/dL Independent Interpretation I performed an independent interpretation of an: Plain X-Ray (XR/XR ankle LT min 3V IMPRESSION: 1. Mild to moderate soft tissue swelling, more pronounced medially without acute underlying osseous abnormality. 2. Mild to moderate atherosclerosis.) Radiology Impression Discussion of test interpretation with radiology: I have reviewed the radiologi st's reading. Core Measures AMI core measures followed: Yes Measure exclusions: not indicated Discharge Plan Discharge Clinical Impression: Ankle sprain Patient Disposition: Home, Self-Care Instructions: Ankle Sprain (ED) Additional Instructions: Take your medications as prescribed. If you were prescribed antibiotics today, it is important that you take your medication to their entirety, do not skip any doses, do not finish them early. Follow-up with your primary care provider this week. Return to the emergency department with new or worsening symptoms. Such as fevers, chills, chest pain, shortness of breath, nausea, vomiting, dizziness, headache, vision changes, lethargy In case of emergency call 911 XR/XR ankle LT min 3V IMPRESSION: 1.? Mild to moderate soft tissue swelling, more pronounced medially without acute underlying osseous abnormality. 2.? Mild to moderate atherosclerosis. ? Prescriptions: New acetaminophen [Tylenol] 325 mg tablet 650 mg PO Q6H PRN (Reason: pain) Qty: 14 0RF No Action atorvastatin 40 mg tablet 40 mg PO DAILY Qty: 90 3RF metoprolol succinate 25 mg tablet extended release 24 hr 25 mg PO DAILY Qty: 90 1RF tramadol 50 mg tablet 1 tab PO BID PRN (Reason: Insomnia) acetaminophen 500 mg tablet 500 mg PO Q8H mirtazapine 30 mg tablet 1 tab PO BEDTIME docusate sodium 100 mg capsule 1 cap PO BID sertraline 25 mg tablet 1 tab PO DAILY polyethylene glycol 3350 17 gram/dose powder 17 g PO DAILY albuterol sulfate 90 mcg/actuation HFA aerosol inhaler 2 puff PO Q4-6H PRN (Reason: Wheezing) amoxicillin 500 mg capsule 1 cap PO Q8H clopidogrel 75 mg tablet 1 tab PO QAM pantoprazole 40 mg tablet,delayed release (DR/EC) 1 tab PO DAILY chlorhexidine gluconate 0.12 % mouthwash 15 ml PO BID ondansetron HCl 4 mg Tablet 4 mg PO BID PRN (Reason: Nausea) amitriptyline 10 mg tablet 10 mg PO DAILY sumatriptan succinate 50 mg tablet 50 mg PO Q2-4H PRN (Reason: Migraine Headache) Rx Instructions: do not exceed 4 doses per 24 hrs (DME) Wrist Brace Misc See Rx Instructions .MEDSUPPLY Qty: 1 0RF Rx Instructions: COMFORT FORM WRIST, RT, S Disp 1 REfill 0 trazodone 50 mg tablet 50 mg PO BEDTIME Referrals: Name,MD Stef [Primary Care Provider] - 2 days Stand Alone Forms: Work/School Release
[2023-05-21 12:14] VITALS: BP 115/61; PULSE 58; RESP 16; TEMP 36.3; O2SAT 100
[2023-05-21 12:21] LABS: MANUAL DIFF FLAG NO
[2023-05-21 12:25] LABS: Basophils Percent Auto 0.4 % (0-2); Eosinophils Absolute Auto 0.3 X10*3/uL (0.0-0.4); Hematocrit 37.5 % (37.0-47.0); Hemoglobin 12.8 g/dl (12.0-16.0); Imm Gran Abs Auto 0.02 X10*3/uL (0.00-0.03); Imm Gran Pct Auto 0.3 % (0.0-0.4); Lymphocytes Absolute Auto 2.9 X10*3/uL (1.2-4.9); Lymphocytes Percent Auto 42.5 % (20-40); Mean Corpuscular HGB Conc 34.1 g/dl (31.0-35.0); Mean Corpuscular Hemoglobin 33.9 pg (27.0-33.0); Mean Corpuscular Volume 99.2 fL (80.0-98.0); Monocytes Absolute Auto 0.8 X10*3/uL (0.1-1.2); Neutrophils Absolute Auto 2.8 x10*3/uL (2.0-8.3); Neutrophils Percent Auto 41.8 % (45-73); Platelet Count 228 X10*3/uL (160-400); Red Blood Count 3.78 X10*6/uL (4.20-5.50); Red Cell Distribution Width 14.1 % (11.0-16.0); White Blood Count 6.8 X10*3/uL (4.8-10.8)
[2023-05-21 12:31] LABS: D Dimer High Sensitivity 178 NG/ML
[2023-05-21] MEDS: Acetaminophen 325 MG TABLET 975 MG PO (12:37)
[2023-05-21 12:38] LABS: Alanine Aminotransferase 9 U/L (0-31); Albumin Level 3.7 g/dL (3.5-5.0); Alkaline Phosphatase 96 U/L (39-117); Anion Gap 11 (12-20); Aspartate Amino Transferase 18 U/L (5-31); Bilirubin Total 0.2 mg/dL (0.0-1.0); Blood Urea Nitrogen 7 mg/dL (9-16); Calcium 9.2 mg/dL (8.4-10.2); Carbon Dioxide 27 mmol/L (22-29); Chloride 109 mmol/L (96-108); Creatinine Clr Calc Pharmacy 47.7; Estimated Glomerular Filt Rate > 60; Glucose Random 109 mg/dL (60-115); Potassium 4.3 mmol/L (3.3-5.1); Sodium 143 mmol/L (135-145); Total Protein 7.3 g/dL (6.5-8.0)
[2023-05-21 12:43] LABS: B Type Natriuretic Peptide 71 pg/mL (<100)
== END 2023-05-21 13:25 | disposition home or self-care (01) ==
PROVIDERS: Physician Assistant; Emergency Provider Emergency Medicine; PCP Internal Medicine Geriatric Medicine
DX: S93.402A Sprain of unspecified ligament of left ankle, initial encounter (principal); X50.1XXA Overexertion from prolonged static or awkward postures, initial encounter; Y93.9 Activity, unspecified; Y92.9 Unspecified place or not applicable; Y99.9 Unspecified external cause status
CPT/HCPCS: 36415; 73610; 80053; 83880; 85025; 85379; 99283

== ENCOUNTER 2023-07-29 14:33 | Emergency (ER) | payer OTHER, SELFPAY ==
--- NOTE | ~2023-07-29 | CT_ITS ---
EXAMINATION: CT brain and CT cervical spine. CLINICAL HISTORY: Fall. Pain. COMPARISON: CT brain and CT cervical spine 09/01/2022. TECHNIQUE: 3 mm thin axial and reformatted 2 mm thin sagittal and coronal images of cervical spine were obtained. Previously axial 5 mm thin and reformatted 2 mm thin sagittal and coronal images of brain were obtained without contrast. DLP 1643. This CT examination was performed using dose optimization technique as appropriate, variously including the following: Automated exposure control Adjustment of MA and/or KV according to patient size(this includes techniques or standardized protocols for targeted exams where dose is matched to indication/reason for exam; extremities or head. Use of iterative reconstruction techniques. FINDINGS: Brain: There is no acute intra-axial, extra-axial bleed, masses or midline shift. There is no acute infarction in evolution. There is no edema. The jessica to white matter differentiation is maintained normal. The lateral ventricles are symmetrical in size and configuration without enlargement. Bone windows reveal no calvarial abnormality. Bilateral paranasal sinuses and mastoid air cells are well-aerated. There is no scalp soft tissue abnormality. Cervical spine: There is normal cervical lordosis. The vertebral heights, alignment and disc heights are normal. The craniovertebral junction and C1-C2 alignment is normal. There is no visible acute fracture, dislocation or subluxation seen. There is enlargement of right sternomastoid muscle likely from hematoma partially visualized is right medial clavicular fracture. Partially visualized lung apices are clear. The airway is widely patent. CT/CT cervical spine wo IV con IMPRESSION: No acute intracranial process seen. No acute fracture, dislocation or subluxation in cervical spine. Right anterior sternomastoid hematoma with enlargement of the muscle. Right medial clavicular fracture. Correlate on CT chest exam.
--- NOTE | ~2023-07-29 | CT_ITS ---
EXAMINATION: CT ABDOMEN AND PELVIS WITHOUT CONTRAST CLINICAL INFORMATION: Fall. Rule out fracture. COMPARISON: None available. TECHNIQUE: Multidetector volumetric imaging was performed from the superior aspect of the liver through the pubic symphysis. Sagittal and coronal reformatted images were obtained on the technologist's workstation. This CT examination was performed using dose optimization techniques as appropriate, variously including the following: *Automated exposure control *Adjustment of mA and/or kV according to patient size (this includes techniques or standardized protocols for targeted exams where dose is matched to indication/reason for exam; i.e. extremities or head) *Use of iterative reconstruction technique DLP: 585 mGy-cm FINDINGS: LUNG BASES: The visualized lung bases are unremarkable. LIVER, GALLBLADDER, AND BILIARY TREE: The liver is normal in size, shape, and attenuation. No focal hepatic lesion or biliary ductal dilatation is present. Upper normal-size gallbladder. Gallstones. PANCREAS: Unremarkable. SPLEEN: Unremarkable. ADRENAL GLANDS: Unremarkable. KIDNEYS AND URETERS: The kidneys are normal in size, shape, and attenuation. No hydronephrosis, hydroureter. Small nonobstructing stone in the lower pole of the left kidney. No perinephric stranding. BLADDER: Unremarkable. GASTROINTESTINAL TRACT: The small and large bowel are unremarkable. The appendix is unremarkable. ABDOMINAL WALL: Umbilical hernia containing fat. Small bilateral inguinal hernias containing fat. LYMPH NODES: Normal. VASCULAR: Unremarkable. PELVIC VISCERA: Unremarkable. OSSEOUS STRUCTURES: Unremarkable. CT/CT abdomen pelvis wo IV con IMPRESSION: No acute posttraumatic findings. No fracture. Fleischner guidelines were followed.
--- NOTE | ~2023-07-29 | XR_ITS ---
EXAMINATION: XR SHOULDER, RIGHT CLINICAL INFORMATION: Fall. COMPARISON: Previous right shoulder x-ray February 2022 TECHNIQUE: Three views of the right shoulder. FINDINGS: The bones are osteopenic. There is a minimally displaced fracture of the distal clavicle. No other fracture is seen. Arthritis at the glenohumeral. Soft tissues are unremarkable. XR/XR shoulder RT min 2V IMPRESSION: Right distal clavicle fracture.
--- NOTE | ~2023-07-29 | XR_ITS ---
EXAMINATION: XR WRIST, LEFT XR HAND, LEFT CLINICAL INFORMATION: Left and ecchymosis, fall COMPARISON: None available. TECHNIQUE: PA, lateral, and oblique views of the left wrist and PA, lateral, and oblique views of the left hand FINDINGS: LEFT HAND: There is loss of PIP and DIP joint space all digits. The MCP joint space is preserved. No visible acute fracture, dislocation or subluxation seen. There is diffuse osteopenia. The soft tissues are normal. LEFT WRIST: The intercarpal, radioulnar carpal and carpometacarpal joint space appears preserved. No bony erosive changes or spurring. No acute fracture or dislocation. There is a small loose body at the tip of ulnar styloid process likely old injury. There is mild deformity of distal ulna likely old fracture. Mild osteoporosis. There is minimal soft tissue swelling distal forearm. XR/XR hand wrist LT IMPRESSION: 1. No acute fracture or dislocation left hand or left wrist. 2. Mild deformity of distal ulna likely old fracture. 3. There is minimal soft tissue swelling distal forearm. 4. Mild degenerative changes PIP and DIP joints left hand. 5. Diffuse osteopenia.
--- NOTE | ~2023-07-29 | CT_ITS ---
EXAMINATION: CT CHEST WITHOUT CONTRAST CLINICAL INFORMATION: Fall. Question rib fractures. COMPARISON: Right shoulder x-ray from earlier the same day and previous chest CT T June 2022 TECHNIQUE: Multidetector volumetric CT imaging of the chest was done. Axial MIP volume rendering provided. Sagittal and coronal reformatted images were obtained. This CT examination was performed using dose optimization techniques as appropriate, variously including the following: *Automated exposure control *Adjustment of mA and/or kV according to patient size (this includes techniques or standardized protocols for targeted exams where dose is matched to indication/reason for exam; i.e. extremities or head) *Use of iterative reconstruction technique DLP: 243 mGy-cm FINDINGS: LUNGS: Evaluation of the lungs is degraded due to motion artifact. MEDIASTINUM: The mediastinum is normal. Replaced right subclavian artery, normal variant. Coronary artery and aortic valve calcification. Tortuous thoracic aorta. Small mediastinal lymph nodes. CORONARY ARTERY CALCIFICATION: None visualized on this study. PLEURA: There is no pleural effusion. No pleural mass or thickening. AXILLA: No lymphadenopathy. UPPER ABDOMEN: Unremarkable. OSSEOUS STRUCTURES: Comminuted minimally displaced fracture of the medial right clavicle. Comminuted minimally displaced fracture of the right lateral clavicle. Degenerative changes of the spine and shoulders. CT/CT chest wo IV con IMPRESSION: Comminuted minimally displaced fractures of the medial and lateral right clavicle. Fleischner guidelines were followed.
--- NOTE | ~2023-07-29 | XR_ITS ---
EXAMINATION: XR KNEE, RIGHT CLINICAL INFORMATION: Pain. Fall. COMPARISON: None available. TECHNIQUE: Four views of the right knee. FINDINGS: The bones are osteopenic. No fracture or dislocation. Mild arthritis at the lateral femoral tibial and patellofemoral joints. No joint effusion. Soft tissue arterial calcification. XR/XR knee RT 4V IMPRESSION: Osteopenia and mild degenerative changes. No fracture or dislocation.
[2023-07-29 15:13] VITALS: BP 134/69; PULSE 68; RESP 16; TEMP 36.1; BMI 28.1
--- NOTE | 2023-07-29 15:19 | ED_ITS ---
HPI - General Adult General Chief complaint: Fall Stated complaint: R Side Arm Wrist Pain S/P Fall 07/29/23 History of Present Illness HPI narrative: Left before completion of treatment by ED provider. Related Data Home Medications Medication Instructions Recorded Confirmed amitriptyline 10 mg tablet 10 mg PO DAILY 08/02/20 09/02/22 sumatriptan succinate 50 mg tablet 50 mg PO Q2-4H PRN Migraine 08/02/20 09/02/22 Headache acetaminophen 500 mg tablet 500 mg PO Q8H 06/27/21 09/02/22 albuterol sulfate 90 mcg/actuation 2 puff PO Q4-6H PRN Wheezing 06/27/21 09/02/22 aerosol inhaler docusate sodium 100 mg capsule 1 cap PO BID 06/27/21 09/02/22 mirtazapine 30 mg tablet 1 tab PO BEDTIME 06/27/21 09/02/22 polyethylene glycol 3350 17 17 g PO DAILY 06/27/21 09/02/22 gram/dose oral powder sertraline 25 mg tablet 1 tab PO DAILY 06/27/21 09/02/22 tramadol 50 mg tablet 1 tab PO BID PRN Insomnia 06/27/21 09/02/22 trazodone 50 mg tablet 50 mg PO BEDTIME 09/18/21 09/02/22 amoxicillin 500 mg capsule 1 cap PO Q8H 09/02/22 09/02/22 chlorhexidine gluconate 0.12 % 15 ml PO BID 09/02/22 09/02/22 mouthwash clopidogrel 75 mg tablet 1 tab PO QAM 09/02/22 09/02/22 ondansetron HCl 4 mg tablet 4 mg PO BID PRN Nausea 09/02/22 09/02/22 pantoprazole 40 mg tablet,delayed 1 tab PO DAILY 09/02/22 09/02/22 release Previous Rx's Medication Instructions Recorded arm brace (Wrist Brace) #1 ea 08/09/20 atorvastatin 40 mg tablet 40 mg PO DAILY #90 tabs 02/26/21 metoprolol succinate 25 mg 25 mg PO DAILY #90 tabs 02/26/21 tablet,extended release 24 hr acetaminophen 325 mg tablet 650 mg (2 x 325 mg) PO Q6H PRN 05/21/23 (Tylenol) pain #14 tabs tramadol 50 mg tablet 50 mg PO Q8H PRN pain #10 tabs 07/31/23 Allergies Allergy/AdvReac Type Severity Reaction Status Date / Time No Known Allergies Allergy Unknown UNKNOWN Verified 05/23/22 09:44 [NO KNOWN ALLERGIES] [facility] Past Medical History Medical History Gallstones Abnormal nuclear stress test HLD (hyperlipidemia) HTN (hypertension) CVA, old, disturbances of vision (~09/2019) NSTEMI (non-ST elevated myocardial infarction) Dementia Coronary artery disease Family History Family History Father No problems noted. Mother No problems noted. 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 patient fell tripped and fell down 6 stairs. Patient denies loss of concsisoiness. positive for right shoulder tendenress. Discharge Plan Discharge Clinical Impression: Fall Patient Disposition: Left W/O Completing Treatment Prescriptions: No Action atorvastatin 40 mg tablet 40 mg PO DAILY Qty: 90 3RF metoprolol succinate 25 mg tablet extended release 24 hr 25 mg PO DAILY Qty: 90 1RF tramadol 50 mg tablet 1 tab PO BID PRN (Reason: Insomnia) acetaminophen 500 mg tablet 500 mg PO Q8H mirtazapine 30 mg tablet 1 tab PO BEDTIME docusate sodium 100 mg capsule 1 cap PO BID sertraline 25 mg tablet 1 tab PO DAILY polyethylene glycol 3350 17 gram/dose powder 17 g PO DAILY albuterol sulfate 90 mcg/actuation HFA aerosol inhaler 2 puff PO Q4-6H PRN (Reason: Wheezing) amoxicillin 500 mg capsule 1 cap PO Q8H clopidogrel 75 mg tablet 1 tab PO QAM pantoprazole 40 mg tablet,delayed release (DR/EC) 1 tab PO DAILY chlorhexidine gluconate 0.12 % mouthwash 15 ml PO BID ondansetron HCl 4 mg Tablet 4 mg PO BID PRN (Reason: Nausea) acetaminophen [Tylenol] 325 mg tablet 650 mg PO Q6H PRN (Reason: pain) Qty: 14 0RF tramadol 50 mg tablet 50 mg PO Q8H PRN (Reason: pain) Qty: 10 0RF amitriptyline 10 mg tablet 10 mg PO DAILY sumatriptan succinate 50 mg tablet 50 mg PO Q2-4H PRN (Reason: Migraine Headache) Rx Instructions: do not exceed 4 doses per 24 hrs (DME) Wrist Brace Misc See Rx Instructions .MEDSUPPLY Qty: 1 0RF Rx Instructions: COMFORT FORM WRIST, RT, S Disp 1 REfill 0 trazodone 50 mg tablet 50 mg PO BEDTIME Discharge Date/Time: 07/29/23 19:08
== END 2023-07-29 19:08 | disposition left against medical advice (07) ==
PROVIDERS: Emergency Provider Emergency Medicine; PCP Internal Medicine Geriatric Medicine
DX: M25.511 Pain in right shoulder (principal); Z91.81 History of falling; I10 Essential (primary) hypertension; E78.5 Hyperlipidemia, unspecified; F03.90 Unspecified dementia, unspecified severity, without behavioral disturbance, psychotic disturbance, mood disturbance, and anxiety; Z86.73 Personal history of transient ischemic attack (TIA), and cerebral infarction without residual deficits; Z79.899 Other long term (current) drug therapy
CPT/HCPCS: 70450; 71250; 72125; 73030; 73110; 73130; 73564; 74176; 99281; 99284

== ENCOUNTER 2023-07-31 10:29 | Emergency (ER) | payer OTHER, SELFPAY ==
--- NOTE | ~2023-07-31 | XR_ITS ---
STUDY: Right shoulder, left knee HISTORY: Worsening pain nonimmobilized right clavicular fracture. Left knee pain after trauma COMPARISON: 07/29/2023 09/17/2019 right shoulder TECHNIQUE: 4 view right shoulder and 4 view left knee pain FINDINGS: Right shoulder: No change mildly displaced distal right clavicular fracture. Acromioclavicular joint is maintained. Glenohumeral degenerative changes again seen. Humeral head spurring again noted. Calcification lateral aspect of the right humeral head. Visualized ribs and lung are unremarkable. Left knee: Moderate lateral mild medial knee joint narrowings. No fracture, dislocation or joint effusion. XR/XR shoulder RT min 2V IMPRESSION: No change distal right clavicular fracture. Question right shoulder calcific tendinopathy. Degenerative change left knee. No acute bony pathology.
--- NOTE | ~2023-07-31 | XR_ITS ---
STUDY: Right shoulder, left knee HISTORY: Worsening pain nonimmobilized right clavicular fracture. Left knee pain after trauma COMPARISON: 07/29/2023 09/17/2019 right shoulder TECHNIQUE: 4 view right shoulder and 4 view left knee pain FINDINGS: Right shoulder: No change mildly displaced distal right clavicular fracture. Acromioclavicular joint is maintained. Glenohumeral degenerative changes again seen. Humeral head spurring again noted. Calcification lateral aspect of the right humeral head. Visualized ribs and lung are unremarkable. Left knee: Moderate lateral mild medial knee joint narrowings. No fracture, dislocation or joint effusion. XR/XR knee LT 4V IMPRESSION: No change distal right clavicular fracture. Question right shoulder calcific tendinopathy. Degenerative change left knee. No acute bony pathology.
[2023-07-31 10:32] VITALS: BP 128/86; PULSE 103; RESP 20; O2SAT 94; BMI 29.3
--- NOTE | 2023-07-31 11:02 | ED.FALL ---
HPI - Fall General Chief Complaint: Fall Stated Complaint: Fall 2 days ago Time Seen by Provider: 07/31/23 10:38 Source: patient and family Mode of arrival: wheelchair Limitations: language barrier ( [place]-speaking clinical medical transcriptionist utilized) History of Present Illness HPI Narrative: patient is an 82-year-old female who presents to the emergency department with her son for evaluation of right shoulder pain after a fall. Patient states that she has significant pain to the right shoulder and is unable to lift the arm. She had a fall 2 days ago, came to the emergency department on 07/29/2023 and had imaging obtained from the waiting room but ultimately left without completing treatment. Patient states that she was walking down the stairs when she tripped falling landing on her right side down approximately 6 stairs. Denies any loss of consciousness. Denies the use of anticoagulants. family reports that they were contacted yesterday and advised to return to the emergency department regarding abnormal results of imaging; clavicular fracture. Related Data Home Medications Medication Instructions Recorded Confirmed amitriptyline 10 mg tablet 10 mg PO DAILY 08/02/20 09/02/22 sumatriptan succinate 50 mg tablet 50 mg PO Q2-4H PRN Migraine 08/02/20 09/02/22 Headache acetaminophen 500 mg tablet 500 mg PO Q8H 06/27/21 09/02/22 albuterol sulfate 90 mcg/actuation 2 puff PO Q4-6H PRN Wheezing 06/27/21 09/02/22 aerosol inhaler docusate sodium 100 mg capsule 1 cap PO BID 06/27/21 09/02/22 mirtazapine 30 mg tablet 1 tab PO BEDTIME 06/27/21 09/02/22 polyethylene glycol 3350 17 17 g PO DAILY 06/27/21 09/02/22 gram/dose oral powder sertraline 25 mg tablet 1 tab PO DAILY 06/27/21 09/02/22 tramadol 50 mg tablet 1 tab PO BID PRN Insomnia 06/27/21 09/02/22 trazodone 50 mg tablet 50 mg PO BEDTIME 09/18/21 09/02/22 amoxicillin 500 mg capsule 1 cap PO Q8H 09/02/22 09/02/22 chlorhexidine gluconate 0.12 % 15 ml PO BID 09/02/22 09/02/22 mouthwash clopidogrel 75 mg tablet 1 tab PO QAM 09/02/22 09/02/22 ondansetron HCl 4 mg tablet 4 mg PO BID PRN Nausea 09/02/22 09/02/22 pantoprazole 40 mg tablet,delayed 1 tab PO DAILY 09/02/22 09/02/22 release Previous Rx's Medication Instructions Recorded arm brace (Wrist Brace) #1 ea 08/09/20 atorvastatin 40 mg tablet 40 mg PO DAILY #90 tabs 02/26/21 metoprolol succinate 25 mg 25 mg PO DAILY #90 tabs 02/26/21 tablet,extended release 24 hr acetaminophen 325 mg tablet 650 mg (2 x 325 mg) PO Q6H PRN 05/21/23 (Tylenol) pain #14 tabs tramadol 50 mg tablet 50 mg PO Q8H PRN pain #10 tabs 07/31/23 Allergies Allergy/AdvReac Type Severity Reaction Status Date / Time No Known Allergies Allergy Unknown UNKNOWN Verified 05/23/22 09:44 [NO KNOWN ALLERGIES] Review of Systems Review of Systems: Yes all other systems are reviewed and are negative [facility] Past Medical History Attestation statement: The following information was validated with the patient. Source: old records reviewed Medical History Gallstones Abnormal nuclear stress test HLD (hyperlipidemia) HTN (hypertension) CVA, old, disturbances of vision (~09/2019) NSTEMI (non-ST elevated myocardial infarction) Dementia Coronary artery disease Family History Family History Father No problems noted. Mother No problems noted. 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 No acute distress.?Normal affect. Eyes: Pupils equal, round and reactive to light.? Ecchymosis of the left orbit. EOMI. No nystagmus. ENT: Pharynx normal.?? TM normal bilaterally. Neck: Normal inspection.? Neck supple.?? No midline cervical spine tenderness, step-offs, deformities. CVS: Heart sounds normal. Normal heart rate and rhythm.? Pulses normal.?? Respiratory: No respiratory distress.? Lung sounds clear to auscultation bilaterally?? Abdomen: Soft and non-tender. Normoactive bowel sounds. Skin: Skin warm and dry.? Normal skin color.? Extremities: No lower extremity edema.? No calf ttp. Right posterior shoulder, SCM/ trapeziusmuscle region with ecchymosis and TTP. Right anterior upper chest/ clavicular ecchymosis and TTP, no crepitus. ecchymosis and swelling with mild decreased AROM to the left knee without laxity, obvious deformity, 2+ DP/ PT pulse bilaterally. Neuro: Moves all extremities spontaneously. Sensation intact bilaterally. CN II-XII intact. No focal neuro deficits. Course Reevaluation(s) Reevaluation #1: patient signed out to Yasmeen Black pending pain management re-assessment after tramadol and XR imaging Time: 13:00 Reevaluation #2: Sign out from [facility] 1400- X-ray No change distal right clavicular fracture. Question right shoulder calcific tendinopathy. patient placed in sling. Pain is well controlled with tramadol. Plan for discharge home with orthopedic follow-up. Medications Administered Discontinued Medications Generic Name Dose Route Start Last Admin Trade Name Freq PRN Reason Stop Dose Admin Tramadol HCl 50 mg 07/31/23 11:03 07/31/23 11:29 Tramadol Hcl 50 Mg Tablet PO 07/31/23 11:04 50 mg ONCE ONE Administration Medical Decision Making Medical Decision Making [facility] Narrative: Patient is an 82-year-old female who presents emergency department family for evaluation of right arm pain after a fall 2 days ago as per HPI. On 07/29/2023 she had trauma series CT including head, cervical spine, chest, and abdomen/pelvis; no acute intracranial process, no cervical spine fracture, subluxation, right medial and lateral comminuted minimally displaced clavicular fracture with anterior sternomastoid hematoma and enlargement of the muscle. Clinically she has notable ecchymosis as per physical examination section, concern for possible anterior dislocation of the shoulder, unable to range the joint due to pain. XR imaging obtained of the right knee is without evidence of fracture or dislocation. Currently has full AROM to the right knee. Endorsing pain to the left knee with significant ecchymosis, mildly decreased AROM, diffuse tenderness upon palpation, no effusion. Plan to obtain XR imaging today to exclude fracture/dislocation. Previous XR of the left hand/ wrist without evidence of acute fracture / dislocation, mild deformity of the distal ulna likely an old fracture, currently has no pain to this location, the ecchymosis and swelling is over the dorsal 2nd through 4th PIP Differential Diagnosis Differential Diagnoses: The differential diagnosis associated with the presentation includes ( As noted above) Independent Interpretation I performed an independent interpretation of an: Plain X-Ray ( I personally interpreted XR imaging of the right shoulder and agree with radiologist impression, distal clavicular fracture) Radiology Impression Discussion of test interpretation with radiology: I have reviewed the radiologist's reading. ( obtained on 07/29/2023) Radiologist Impression: CT/CT head/brain wo IV con IMPRESSION: No acute intracranial process seen. No acute fracture, dislocation or subluxation in cervical spine. Right anterior sternomastoid hematoma with enlargement of the muscle. Right medial clavicular fracture. Correlate on CT chest exam. CT/CT chest wo IV con IMPRESSION: Comminuted minimally displaced fractures of the medial and lateral right clavicle. Fleischner guidelines were followed. CT/CT abdomen pelvis wo IV con IMPRESSION: No acute posttraumatic findings. No fracture. Fleischner guidelines were followed XR/XR shoulder RT min 2V IMPRESSION: Right distal clavicle fracture. XR/XR knee RT 4V IMPRESSION: Osteopenia and mild degenerative changes. No fracture or dislocation. XR/XR hand wrist LT IMPRESSION: 1. No acute fracture or dislocation left hand or left wrist. 2. Mild deformity of distal ulna likely old fracture. 3. There is minimal soft tissue swelling distal forearm. 4. Mild degenerative changes PIP and DIP joints left hand. 5. Diffuse osteopenia. Discharge Plan Discharge Clinical Impression: Clavicle fracture Patient Disposition: Home, Self-Care Instructions: Clavicle Fracture (ED) Additional Instructions: Use the sling for comfort Take the medications as needed. Sometimes these medications can make you sleepy so be careful with moving around. Call Orthopedics to follow up with. Apply ice to the area as tolerated Use a tipoia para maior conforto Havre os medicamentos conforme necess?heydi. ?s vezes, esses medicamentos podem deix?-lo sonolento, por isso tome cuidado ao se movimentar. 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 Aplique karen na ?sari conforme tolerado Prescriptions: New tramadol 50 mg tablet 50 mg PO Q8H PRN (Reason: pain) Qty: 10 0RF No Action atorvastatin 40 mg tablet 40 mg PO DAILY Qty: 90 3RF metoprolol succinate 25 mg tablet extended release 24 hr 25 mg PO DAILY Qty: 90 1RF tramadol 50 mg tablet 1 tab PO BID PRN (Reason: Insomnia) acetaminophen 500 mg tablet 500 mg PO Q8H mirtazapine 30 mg tablet 1 tab PO BEDTIME docusate sodium 100 mg capsule 1 cap PO BID sertraline 25 mg tablet 1 tab PO DAILY polyethylene glycol 3350 17 gram/dose powder 17 g PO DAILY albuterol sulfate 90 mcg/actuation HFA aerosol inhaler 2 puff PO Q4-6H PRN (Reason: Wheezing) amoxicillin 500 mg capsule 1 cap PO Q8H clopidogrel 75 mg tablet 1 tab PO QAM pantoprazole 40 mg tablet,delayed release (DR/EC) 1 tab PO DAILY chlorhexidine gluconate 0.12 % mouthwash 15 ml PO BID ondansetron HCl 4 mg Tablet 4 mg PO BID PRN (Reason: Nausea) acetaminophen [Tylenol] 325 mg tablet 650 mg PO Q6H PRN (Reason: pain) Qty: 14 0RF amitriptyline 10 mg tablet 10 mg PO DAILY sumatriptan succinate 50 mg tablet 50 mg PO Q2-4H PRN (Reason: Migraine Headache) Rx Instructions: do not exceed 4 doses per 24 hrs (DME) Wrist Brace Misc See Rx Instructions .MEDSUPPLY Qty: 1 0RF Rx Instructions: COMFORT FORM WRIST, RT, S Disp 1 REfill 0 trazodone 50 mg tablet 50 mg PO BEDTIME Referrals: [facility] [Provider Group] - 10 days Print Language: [place]
[2023-07-31] MEDS: traMADoL HCL 50 MG TABLET PO (11:29)
== END 2023-07-31 14:22 | disposition home or self-care (01) ==
PROVIDERS: Emergency Provider Emergency Medicine Emergency Medical Services
DX: S42.011A Anterior displaced fracture of sternal end of right clavicle, initial encounter for closed fracture (principal); W10.8XXA Fall (on) (from) other stairs and steps, initial encounter; M17.12 Unilateral primary osteoarthritis, left knee; Y93.9 Activity, unspecified; Y92.008 Other place in unspecified non-institutional (private) residence as the place of occurrence of the external cause; Y99.9 Unspecified external cause status
CPT/HCPCS: 73030; 73564; 99283; 99284

== ENCOUNTER 2023-08-26 07:57 | Outpatient (AMB) | payer OTHER, SELFPAY ==
[2023-08-26 07:59] VITALS: BMI 29.3
--- NOTE | 2023-08-26 07:59 | A.OFFVIS_ITS ---
Intake Vital Signs 08/26/23 07:59 Height 4 ft 11 in Weight 145 lb BMI 29.3 Intake Visit Reasons: Newprob-Right shoulder pain Intake Note: Elisa an 81 yr old [place] Citizen speaking female presents today for an evaluation of right shoulder. Patient reports right shoulder pain has been present for a while however after a recent fall her pain has increased. 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 Limited ROM. Finds no relief with Tylenol, Motrin, tramadol or topical cream. No previous tx. Allergies No Known Allergies [NO KNOWN ALLERGIES] Allergy (Unknown, Verified 08/26/23 08:02) UNKNOWN HPI Newprob-Right shoulder pain HPI Details 82-year-old [place] Citizen speaking female who presents to the office today for evaluation of right shoulder pain. She reports she experienced this pain for a while but has been worsened since her recent fall. 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 She finds no relief with Tylenol, Motrin, tramadol or topical cream. She has not had any treatment in the past. [facility] Medical History Gallstones Abnormal nuclear stress test HLD (hyperlipidemia) HTN (hypertension) CVA, old, disturbances of vision (~09/2019) NSTEMI (non-ST elevated myocardial infarction) Dementia Coronary artery disease Family History Father No problems noted. Mother No problems noted. 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 Forward flexion to 45 degrees. External rotation to 30 degrees. NVI. Office Procedures Joint Injection/Drain Joint Injection/Drain Primary Site: right shoulder Prep: site was prepped using aseptic technique, ethochloride spray was applied and injection warnings given Injected: 80 mg of, DepoMedrol, with 8 mL of, 1% plain lidocaine and in the subcromial space Approach Used: posterolateral Procedure: The patient tolerated the procedure well and there was some relief with the local anesthesia Coding 93597 - Glenohumeral/Tronchanteric Bursa/Intraarticular Procedure code (CPT) selection complete Results Reviewed Results Reviewed: xrays of the right shoulder obtained from an outside source show superior migration of the humeral head with osteophyte formation Assessment & Plan Assessment & Plan (1) Rotator cuff arthropathy of right shoulder: Code(s): M12.811 - Other specific arthropathies, not elsewhere classified, right shoulder Plan We discussed options today which include steroid injection. They did consent to move forward with the right shoulder injection, which was tolerated well. I recommended rest, ice and elevation and OTC anti-inflammatories PRN for discomfort. If symptoms persist or worsens over the next 6-8 weeks, patient will contact the office, otherwise follow-up as needed. Patient Instructions: Scribed for Kendall Vo PA-C, by Henrique Sharma biomedical equipment specialist, on 08/26/2023 at 8:00 AM DESIRAE. Kendall Bang PA-C, have personally reviewed and agree with the information entered by the scribe. Coding Level of Care Code Est Pt Level 3 (61399) Diagnoses Rotator cuff arthropathy of right shoulder M12.811 CPT Codes Coding - Joint 7: 93908 - Glenohumeral/Tronchanteric Bursa/Intraarticular ([id number])
== END 2023-08-26 08:36 | disposition home or self-care (01) ==
PROVIDERS: Visit Provider Physician Assistant
DX: M12.811 Other specific arthropathies, not elsewhere classified, right shoulder (principal)
CPT/HCPCS: 20610; 99213

== ENCOUNTER → 2023-08-26 07:57 | Outpatient (BNVA) | payer OTHER, SELFPAY | PROVIDERS: Visit Provider Physician Assistant | DX: M12.811 Other specific arthropathies, not elsewhere classified, right shoulder (principal) | CPT/HCPCS: 20610; 99212; J1040 ==

== ENCOUNTER 2024-01-28 11:38 | Outpatient (REF) | payer OTHER, SELFPAY ==
[2024-01-28 13:36] LABS: MANUAL DIFF FLAG NO
[2024-01-28 13:48] LABS: Basophils Percent Auto 0.5 % (0-2); Eosinophils Absolute Auto 0.2 X10*3/uL (0.0-0.4); Eosinophils Percent Auto 1.7 % (0-4); Hematocrit 40.6 % (37.0-47.0); Hemoglobin 13.4 g/dl (12.0-16.0); Imm Gran Abs Auto 0.02 X10*3/uL (0.00-0.03); Imm Gran Pct Auto 0.2 % (0.0-0.4); Lymphocytes Absolute Auto 4.6 X10*3/uL (1.2-4.9); Lymphocytes Percent Auto 53.4 % (20-40); Mean Corpuscular Hemoglobin 32.4 pg (27.0-33.0); Mean Corpuscular Volume 98.1 fL (80.0-98.0); Mean Platelet Volume 11.5 fL (9.4-12.3); Monocytes Absolute Auto 0.8 X10*3/uL (0.1-1.2); Monocytes Percent Auto 8.8 % (2-11); Neutrophils Absolute Auto 3.1 x10*3/uL (2.0-8.3); Neutrophils Percent Auto 35.4 % (45-73); Platelet Count 304 X10*3/uL (160-400); Red Blood Count 4.14 X10*6/uL (4.20-5.50); Red Cell Distribution Width 13.2 % (11.0-16.0); White Blood Count 8.6 X10*3/uL (4.8-10.8)
[2024-01-28 14:35] LABS: Alanine Aminotransferase 23 U/L (0-31); Alkaline Phosphatase 79 U/L (39-117); Anion Gap 13 (12-20); Aspartate Amino Transferase 40 U/L (5-31); Bilirubin Total 0.2 mg/dL (0.0-1.0); Blood Urea Nitrogen 14 mg/dL (9-16); Calcium 9.7 mg/dL (8.4-10.2); Carbon Dioxide 26 mmol/L (22-29); Chloride 106 mmol/L (96-108); Cholesterol 212 mg/dL (<200); Estimated Glomerular Filt Rate > 60; Glucose Random 109 mg/dL (60-115); HDL Cholesterol 37 mg/dL (>40); LDL Cholesterol Calculated 122 mg/dL (<100); Potassium 5.1 mmol/L (3.3-5.1); Sodium 140 mmol/L (135-145); Total Protein 8.2 g/dL (6.5-8.0); Triglycerides 265 mg/dL (<150)
== END 2024-01-28 11:39 | disposition home or self-care (01) ==
LOC: HO.HHCL 11:38
PROVIDERS: Visit Provider Internal Medicine Geriatric Medicine
DX: I25.10 Atherosclerotic heart disease of native coronary artery without angina pectoris (principal); F02.84 Dementia in other diseases classified elsewhere, unspecified severity, with anxiety; N39.46 Mixed incontinence; G89.29 Other chronic pain
CPT/HCPCS: 36415; 80053; 80061; 85025

== ENCOUNTER 2024-02-10 10:20 | Outpatient (REF) | payer OTHER, SELFPAY ==
[2024-02-13 07:24] LABS: TS Negative Control Passed; TS Panel A 0; TS Panel B 0; TS Positive Control Passed; TSpotTB Negative (Negative)
== END 2024-02-10 10:21 | disposition home or self-care (01) ==
LOC: HO.HHCL 10:20
PROVIDERS: Visit Provider Internal Medicine Geriatric Medicine
DX: R76.12 Nonspecific reaction to cell mediated immunity measurement of gamma interferon antigen response without active tuberculosis (principal)
CPT/HCPCS: 36415; 86481

== ENCOUNTER 2024-04-01 07:56 | Outpatient (REF) | payer OTHER, SELFPAY ==
--- NOTE | ~2024-04-01 | MM_ITS ---
EXAMINATION: BONE DENSITOMETRY CLINICAL INDICATION: Recent clavicle fracture, osteoporosis. COMPARISON: Baseline BD dated 08/13/2020. TECHNIQUE: Using a Talkray DXA System (software version: 13.1) manufactured by [employer], dual-energy x-ray absorptiometry was performed of the lumbar spine and left hip. The images are of good technical quality. Summary results are attached. FINDINGS: LEFT FEMUR, NECK: Current: BMD 0.778 g/cm2, Z-score 0.6, T-score -1.9, osteopenia. Baseline: BMD 0.792 g/cm2. LEFT FEMUR, TOTAL: Current: BMD 0.887 g/cm2, Z-score 1.5, T-score -1.0, normal, 5.6% decrease from baseline (<5% change is not significant). Baseline: BMD 0.940 g/cm2. AP SPINE L1-L4: Current: BMD 0.845 g/cm2, Z-score -0.6, T-score -2.8, osteoporosis, 5.5% decrease from baseline (<5% change is not significant). Baseline: BMD 0.894 g/cm2. IDENTIFIED RISK FACTORS: Osteoporosis, dementia, current smoker, recurrent falls, height loss, history of fracture (adult), menopause. HISTORY OF FRACTURE: Wrist, shoulder. MEDICATIONS: Calcium supplements or multivitamin, vitamin D. MM/XR DEXA axial skeleton IMPRESSION: 1. DIAGNOSIS: Severe osteoporosis based on the lowest T-score value of -2.8 in the lumbar spine and history of fracture applying World Health Organization criteria. 2. 10-YEAR FRACTURE RISK PREDICTION, FRAX: According to the guidelines, FRAX calculation should only be performed on patients in the osteopenia bone density category. Therefore, FRAX was not performed on this patient. 3. Treatment Recommendations: NOF guidelines recommend consideration for treatment in postmenopausal women and men age 50 and older presenting with the following: -A hip or vertebral (clinical or morphometric) fracture. -T-score less than or equal to -2.5 at the femoral neck or spine after appropriate evaluation to exclude secondary causes. -Low bone mass at the hip or spine and a 10-year fracture probability by FRAX of greater than or equal to 3% for hip fracture or greater than or equal to 20% for major osteoporotic fracture based on the [place] adapted WHO algorithm. 4. Other Recommendations: All treatment decisions require clinical judgment and consideration of individual patient factors, including patient preferences, comorbidities, previous drug use, risk factors not captured in the FRAX model (e.g. frailty, falls, vitamin D deficiency, increased bone turnover, interval significant decline in bone density) and possible under or overestimation of fracture risk by FRAX. Additional medical evaluation for secondary cause of low bone mineral density may be appropriate. FUTURE SCAN RECOMMENDATION: People with diagnosed cases of osteoporosis or at high risk for fracture should have regular bone mineral density tests. For patients eligible for Medicare, routine testing is allowed once every 2 years. The testing frequency can be increased to one year for patients who have rapidly progressing disease, those who are receiving or discontinuing medical therapy to restore bone mass, or have additional risk factors.
== END 2024-04-01 07:57 | disposition home or self-care (01) ==
LOC: HO.MAMMO 07:56
PROVIDERS: PCP Internal Medicine Geriatric Medicine; Visit Provider Internal Medicine Geriatric Medicine
DX: M81.0 Age-related osteoporosis without current pathological fracture (principal); S42.001A Fracture of unspecified part of right clavicle, initial encounter for closed fracture
CPT/HCPCS: 77080

== ENCOUNTER 2024-04-15 01:54 | Emergency (ER) | payer OTHER, SELFPAY ==
[2024-04-15 02:02] VITALS: BP 128/80; PULSE 76; O2SAT 98; BMI 24.6
[2024-04-15 02:05] VITALS: BP 127/63; PULSE 72; RESP 17; TEMP 36.9; O2SAT 95
--- NOTE | 2024-04-15 02:47 | ED.NAVMDI ---
HPI - Nausea/Vomiting/Diarrhea General Chief complaint: Nausea/Vomiting/Diarrhea Stated complaint: diarrhea Time Seen by Provider: 04/15/24 02:36 Source: patient Mode of arrival: EMS Limitations: language barrier (Patient speaks Andorran only, court interpreter used) History of Present Illness ED Provider: Dr. Bertram Cabral HPI Narrative: 83-year-old female with a history of gallstones, hyperlipidemia, hypertension, stroke, NSTEMI, dementia, coronary artery disease who was brought to emergency department by ambulance for evaluation of vomiting. The patient states that she had nausea and vomited once at home. According to nursing staff the patient was covered in green, foul-smelling diarrhea which the nurses cleaned up prior to my evaluation. The patient has no complaints. She denied fever, chills, cough, chest pain, shortness of breath, diarrhea, abdominal pain. Related Data Home Medications ?Medication ?Instructions ?Recorded ?Confirmed amitriptyline 10 mg tablet 10 mg PO DAILY 08/02/20 09/02/22 sumatriptan succinate 50 mg tablet 50 mg PO Q2-4H PRN Migraine 08/02/20 09/02/22 Headache acetaminophen 500 mg tablet 500 mg PO Q8H 06/27/21 09/02/22 albuterol sulfate 90 mcg/actuation 2 puff PO Q4-6H PRN Wheezing 06/27/21 09/02/22 aerosol inhaler docusate sodium 100 mg capsule 1 cap PO BID 06/27/21 09/02/22 mirtazapine 30 mg tablet 1 tab PO BEDTIME 06/27/21 09/02/22 polyethylene glycol 3350 17 17 g PO DAILY 06/27/21 09/02/22 gram/dose oral powder sertraline 25 mg tablet 1 tab PO DAILY 06/27/21 09/02/22 tramadol 50 mg tablet 1 tab PO BID PRN Insomnia 06/27/21 09/02/22 trazodone 50 mg tablet 50 mg PO BEDTIME 09/18/21 09/02/22 amoxicillin 500 mg capsule 1 cap PO Q8H 09/02/22 09/02/22 chlorhexidine gluconate 0.12 % 15 ml PO BID 09/02/22 09/02/22 mouthwash clopidogrel 75 mg tablet 1 tab PO QAM 09/02/22 09/02/22 ondansetron HCl 4 mg tablet 4 mg PO BID PRN Nausea 09/02/22 09/02/22 pantoprazole 40 mg tablet,delayed 1 tab PO DAILY 09/02/22 09/02/22 release Previous Rx's ?Medication ?Instructions ?Recorded arm brace (Wrist Brace) #1 ea 08/09/20 atorvastatin 40 mg tablet 40 mg PO DAILY #90 tabs 02/26/21 metoprolol succinate 25 mg 25 mg PO DAILY #90 tabs 02/26/21 tablet,extended release 24 hr acetaminophen 325 mg tablet 650 mg (2 x 325 mg) PO Q6H PRN 05/21/23 (Tylenol) pain #14 tabs tramadol 50 mg tablet 50 mg PO Q8H PRN pain #10 tabs 07/31/23 Allergies Allergy/AdvReac Type Severity Reaction Status Date / Time No Known Allergies Allergy Unknown UNKNOWN Verified 04/15/24 02:46 [NO KNOWN ALLERGIES] [facility] Past Medical History [facility] Narrative: Social history: Patient lives at home with her autistic son. Patient denies tobacco use she was a former smoker. She denies alcohol use. Medical History Gallstones Abnormal nuclear stress test HLD (hyperlipidemia) HTN (hypertension) CVA, old, disturbances of vision (~09/2019) NSTEMI (non-ST elevated myocardial infarction) Dementia Coronary artery disease Family History Family History Father No problems noted. Mother No problems noted. 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 Physical Exam Vital Signs: Vital Signs: Last Vital Signs Temp 98.5 F 04/15/24 02:05 Pulse 72 04/15/24 02:05 Resp 17 04/15/24 02:05 BP 127/63 04/15/24 02:05 Pulse Ox 95 04/15/24 02:05 O2 Del Method Room Air 04/15/24 02:05 BMI result Body Mass Index 24.6 Vital signs were normal Exam: General: Awake, alert in no distress Head: Normocephalic, atraumatic EENT: PERRL, Lids normal, sclera normal, conjunctiva normal, nose normal , ears normal, throat without erythema or exudates Neck: Supple, no adenopathy Lung: breath sounds symmetric, no wheezing, rales or rhonchi Chest: symmetric movement, nontender Heart: regular rate and rhythm, normal S1, S2 no murmurs or rubs Abdomen: soft, non-tender, nondistended, normal bowel sounds Back: no vertebral tenderness, no CVAT Extremities: no deformities, moves all extremities symmetrically Neuro: Awake, alert, normal speech, cranial nerves intact, moves all extremities symmetrically Psych: Pleasant, cooperative Medical Decision Making Medical Decision Making MDM Narrative: 83-year-old female with a history of gallstones, hyperlipidemia, hypertension, stroke, NSTEMI, dementia, coronary artery disease who was brought to emergency department by ambulance for evaluation of vomiting. The patient states that she had nausea and vomited once at home. According to nursing staff the patient was covered in green, foul-smelling diarrhea which the nurses cleaned up prior to my evaluation. Patient's vital signs were normal. Physical examination was unremarkable. Differential diagnosis: ?Includes but is not limited to viral syndrome, anemia, electrolyte abnormalities, C diff colitis Following evaluation was ordered: CBC, CMP, C diff colitis Course: 04:11 My interpretation patient's laboratory evaluation as follows: WBCs elevated 12,200 with 83 neutrophils and 9 lymphocytes. H&H was normal. Comprehensive metabolic panel revealed elevated glucose 138 otherwise unremarkable. COVID-19, influenza, RSV were negative. The patient did not have any diarrhea while she was here in the emergency department therefore C diff was not done. At this time, the patient appears to be stable, she has had no further episodes of vomiting and has no complaints therefore she will be discharged home. Admission/Observation Consideration of admission/observation: Escalation of care including admission/observation considered Lab Data [facility] Lab Attestation statement: I reviewed the patient's lab results. 04/15/24 03:11 04/15/24 03:11 Labs: Lab Results 04/15/24 04/15/24 Range/Units 03:11 03:12 WBC 12.2 H (4.8-10.8) X10*3/uL RBC 4.20 (4.20-5.50) X10*6/uL Hgb 13.8 (12.0-16.0) g/dl Hct 40.6 (37.0-47.0) % MCV 96.7 (80.0-98.0) fL MCH 32.9 (27.0-33.0) pg MCHC 34.0 (31.0-35.0) g/dl RDW 14.2 (11.0-16.0) % Plt Count 252 (160-400) X10*3/uL MPV 11.6 (9.4-12.3) fL Immature Gran % (Auto) 0.3 (0.0-0.4) % Neut % (Auto) 83.2 H (45-73) % Lymph % (Auto) 9.1 L (20-40) % [place] % (Auto) 6.6 (2-11) % Eos % (Auto) 0.6 (0-4) % Baso % (Auto) 0.2 (0-2) % Lymph # (Auto) 1.1 L (1.2-4.9) X10*3/uL [place] # (Auto) 0.8 (0.1-1.2) X10*3/uL Eos # (Auto) 0.1 (0.0-0.4) X10*3/uL Baso # (Auto) 0.0 (0.0-0.2) X10*3/uL Abs Immat Gran (auto) 0.04 H (0.00-0.03) X10*3/uL Absolute Neuts (auto) 10.1 H (2.0-8.3) x10*3/uL Absolute Nucleated RBC 0.000 (0.0-0.012) X10*3/uL Nucleated RBC % (auto) 0.0 (0.0-0.2) /100WBC Sodium 140 (135-145) mmol/L Potassium 3.8 D (3.3-5.1) mmol/L Chloride 107 (96-108) mmol/L Carbon Dioxide 23 (22-29) mmol/L Anion Gap 14 (12-20) BUN 12 (9-16) mg/dL Creatinine 0.70 (0.5-1.4) mg/dL Estim Creat Clear Calc 38.1 Estimated GFR > 60 Random Glucose 138 H (60-115) mg/dL Calcium 9.1 D (8.4-10.2) mg/dL Total Bilirubin 0.4 (0.0-1.0) mg/dL AST 22 (5-31) U/L ALT 10 (0-31) U/L Alkaline Phosphatase 66 (39-117) U/L Total Protein 7.6 (6.5-8.0) g/dL Albumin 4.0 (3.5-5.0) g/dL Influenza Type A (PCR) NEGATIVE (Negative) Influenza Type B (PCR) NEGATIVE (Negative) RSV RNA Qual (PCR) NEGATIVE (Negative) SARS-CoV-2 RNA (RT-PCR) NEGATIVE (Negative) Chronic Conditions Patient?s care impacted by: Hypertension and Other (Dementia) Discharge Plan Discharge Clinical Impression: Vomiting Patient Disposition: Home, Self-Care Additional Instructions: Your blood work was unremarkable. You had no further episodes of vomiting here in the emergency department. Possible that you may have an early viral infection. Continue taking medications as prescribed by your providers. Follow-up with your doctor in 2 days. Please return to the emergency department if your symptoms get worse or if you develop any symptoms that are concerning to you. Prescriptions: No Action atorvastatin 40 mg tablet 40 mg PO DAILY Qty: 90 3RF metoprolol succinate 25 mg tablet extended release 24 hr 25 mg PO DAILY Qty: 90 1RF tramadol 50 mg tablet 1 tab PO BID PRN (Reason: Insomnia) acetaminophen 500 mg tablet 500 mg PO Q8H mirtazapine 30 mg tablet 1 tab PO BEDTIME docusate sodium 100 mg capsule 1 cap PO BID sertraline 25 mg tablet 1 tab PO DAILY polyethylene glycol 3350 17 gram/dose powder 17 g PO DAILY albuterol sulfate 90 mcg/actuation HFA aerosol inhaler 2 puff PO Q4-6H PRN (Reason: Wheezing) amoxicillin 500 mg capsule 1 cap PO Q8H clopidogrel 75 mg tablet 1 tab PO QAM pantoprazole 40 mg tablet,delayed release (DR/EC) 1 tab PO DAILY chlorhexidine gluconate 0.12 % mouthwash 15 ml PO BID ondansetron HCl 4 mg Tablet 4 mg PO BID PRN (Reason: Nausea) acetaminophen [Tylenol] 325 mg tablet 650 mg PO Q6H PRN (Reason: pain) Qty: 14 0RF tramadol 50 mg tablet 50 mg PO Q8H PRN (Reason: pain) Qty: 10 0RF amitriptyline 10 mg tablet 10 mg PO DAILY sumatriptan succinate 50 mg tablet 50 mg PO Q2-4H PRN (Reason: Migraine Headache) Rx Instructions: do not exceed 4 doses per 24 hrs (DME) Wrist Brace Misc See Rx Instructions .MEDSUPPLY Qty: 1 0RF Rx Instructions: COMFORT FORM WRIST, RT, S Disp 1 REfill 0 trazodone 50 mg tablet 50 mg PO BEDTIME Print Language: Andorran
--- NOTE | 2024-04-15 02:47 | PC.NURSE ---
Pt is an 83 y/o female who presents from home via EMS for evaluation of vomiting. EMS reports an unkept, malodorous apartment and evidence of green stool all over pt. Pt lives with her adult son who is the primary assembly person. Pt reports one episode of vomiting at bedtime, and denies any other complaints of pain, discomfort, or concern. Pt is legally blind and reports frequent infections and treatment with antibiotics. Pt reports regular food and fluid intake and regular hygiene. Upon arrival, pt was covered in dried stool that was forest green in color and malodorous. Pt was given full bed bath and dressed in clean gown. Skin, head-to-toe is intact and without findings, no observation of skin breakdown or wounds.
[2024-04-15 03:18] LABS: Basophils Percent Auto 0.2 % (0-2); Eosinophils Absolute Auto 0.1 X10*3/uL (0.0-0.4); Eosinophils Percent Auto 0.6 % (0-4); Hematocrit 40.6 % (37.0-47.0); Hemoglobin 13.8 g/dl (12.0-16.0); Imm Gran Abs Auto 0.04 X10*3/uL (0.00-0.03); Imm Gran Pct Auto 0.3 % (0.0-0.4); Lymphocytes Absolute Auto 1.1 X10*3/uL (1.2-4.9); Lymphocytes Percent Auto 9.1 % (20-40); MANUAL DIFF FLAG NO; Mean Corpuscular Hemoglobin 32.9 pg (27.0-33.0); Mean Corpuscular Volume 96.7 fL (80.0-98.0); Mean Platelet Volume 11.6 fL (9.4-12.3); Monocytes Absolute Auto 0.8 X10*3/uL (0.1-1.2); Monocytes Percent Auto 6.6 % (2-11); Neutrophils Absolute Auto 10.1 x10*3/uL (2.0-8.3); Neutrophils Percent Auto 83.2 % (45-73); Platelet Count 252 X10*3/uL (160-400); Red Cell Distribution Width 14.2 % (11.0-16.0); White Blood Count 12.2 X10*3/uL (4.8-10.8)
[2024-04-15 03:33] LABS: Alanine Aminotransferase 10 U/L (0-31); Alkaline Phosphatase 66 U/L (39-117); Anion Gap 14 (12-20); Aspartate Amino Transferase 22 U/L (5-31); Bilirubin Total 0.4 mg/dL (0.0-1.0); Blood Urea Nitrogen 12 mg/dL (9-16); Calcium 9.1 mg/dL (8.4-10.2); Carbon Dioxide 23 mmol/L (22-29); Chloride 107 mmol/L (96-108); Creatinine Clr Calc Pharmacy 38.1; Estimated Glomerular Filt Rate > 60; Glucose Random 138 mg/dL (60-115); Potassium 3.8 mmol/L (3.3-5.1); Sodium 140 mmol/L (135-145); Total Protein 7.6 g/dL (6.5-8.0)
[2024-04-15 03:55] LABS: Influenza A PCR NEGATIVE (Negative); Influenza B PCR NEGATIVE (Negative); Resp Syncy Virus RNA Qual PCR NEGATIVE (Negative); SARS COV2 PCR INHOUSE NEGATIVE (Negative)
[2024-04-15 05:02] VITALS: BP 118/78; PULSE 82; RESP 18; TEMP 36.7; O2SAT 97
== END 2024-04-15 05:04 | disposition home or self-care (01) ==
PROVIDERS: Emergency Provider Emergency Medicine Emergency Medical Services
DX: R11.2 Nausea with vomiting, unspecified (principal); I10 Essential (primary) hypertension; E78.5 Hyperlipidemia, unspecified; Z03.818 Encounter for observation for suspected exposure to other biological agents ruled out; Z79.02 Long term (current) use of antithrombotics/antiplatelets; Z79.899 Other long term (current) drug therapy
CPT/HCPCS: 0241U; 36415; 80053; 85025; 99283

== ENCOUNTER 2024-07-22 11:43 | Emergency (ER) | payer OTHER, SELFPAY ==
--- NOTE | ~2024-07-22 | CT_ITS ---
EXAMINATION: CT HEAD WITHOUT CONTRAST CLINICAL INFORMATION: Fall. Dementia. COMPARISON: CT head dated July 29, 2023. TECHNIQUE: Contiguous axial imaging was performed from the skull base to vertex without intravenous administration of contrast. This CT examination was performed using dose optimization techniques as appropriate, variously including the following: *Automated exposure control *Adjustment of mA and/or kV according to patient size (this includes techniques or standardized protocols for targeted exams where dose is matched to indication/reason for exam; i.e. extremities or head) *Use of iterative reconstruction technique DLP: 1106 mGy-cm FINDINGS: There is no acute intracranial hemorrhage. There is no evidence of acute/subacute cerebral or cerebellar infarction. There is mild to moderate microvascular ischemic change. There is no midline shift or mass effect. There is no extra-axial fluid collection. The ventricles are normal in size. The ocular lenses are surgically absent. The orbits are otherwise unremarkable. The calvarium is intact. The mastoid air cells are well aerated. The paranasal sinuses are clear. CT/CT head/brain wo IV con IMPRESSION: No acute intracranial pathology. Mild to moderate microvascular ischemic change. Electronically signed by: Kasi Champion DO 07/22/2024 02:43 PM EDT
--- NOTE | ~2024-07-22 | XR_ITS ---
EXAMINATION: XR HIP, RIGHT CLINICAL INFORMATION: Fall. Right hip pain. COMPARISON: Right hip radiographs dated March 06, 2023. TECHNIQUE: Two views of the right hip. FINDINGS: There is no fracture or dislocation. There are mild to moderate degenerative changes of the right hip joint characterized by joint space narrowing and subchondral sclerosis. There are mild to moderate degenerative changes of the left hip joint. There are degenerative changes of the pubic symphysis and to a lesser extent the sacroiliac joints. XR/XR hip RT w PEL1V IMPRESSION: No fracture or dislocation. Degenerative disease. Electronically signed by: Kasi Champion DO 07/22/2024 02:47 PM EDT
--- NOTE | ~2024-07-22 | CT_ITS ---
EXAMINATION: CT CHEST WITH CONTRAST CLINICAL INFORMATION: Status post fall. Question hemothorax versus pulmonary contusion. COMPARISON: CT scans dating between July 29, 2023 and August 30, 2014. TECHNIQUE: Multidetector volumetric CT imaging of the chest was obtained after the administration of 65 mL of Omnipaque 350 intravenous contrast without immediate adverse reactions. Axial MIP volume rendering provided. Sagittal and coronal reformatted images were obtained. This CT examination was performed using dose optimization techniques as appropriate, variously including the following: *Automated exposure control *Adjustment of mA and/or kV according to patient size (this includes techniques or standardized protocols for targeted exams where dose is matched to indication/reason for exam; i.e. extremities or head) *Use of iterative reconstruction technique DLP: 203 mGy-cm FINDINGS: LUNGS: Mild diffuse chronic interstitial fibrotic change with a peripheral and basilar predominance. Mild associated traction bronchiectasis, most notably in the left lower lobe. Mild bronchial wall thickening. No consolidation identified. Patent central bronchi. MEDIASTINUM: Vascular tortuosity consistent with hypertension. 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 Heart normal in size. No pericardial effusion. No evidence of adenopathy by size criteria. Unremarkable appearance of the thyroid gland. CORONARY ARTERIAL CALCIFICATION: Severe. PLEURA: There is no pleural effusion. No pleural mass or thickening. AXILLA: No lymphadenopathy by size criteria. UPPER ABDOMEN: Cholelithiasis. No evidence of gallbladder wall thickening or pericholecystic inflammatory change. Suspect small hiatus hernia. Small bilateral renal cortical scars most notably involving the left lower pole. OSSEOUS STRUCTURES: Decreased bone mineral density. Moderate compression deformity of L2, new compared with July 29, 2023. Mild compression deformities of T4 and T11, unchanged compared with July 29, 2023. CT/CT chest w IV con IMPRESSION: Decreased bone mineral density. Moderate compression deformity of L2, new compared with July 29, 2023. Recommend clinical correlation. No evidence of pulmonary contusion or hemothorax. Additional findings as above. Electronically signed by: Abner Yip MD 07/22/2024 06:14 PM EDT
--- NOTE | ~2024-07-22 | XR_ITS ---
EXAMINATION: XR CHEST CLINICAL INFORMATION: Fall. COMPARISON: Chest radiograph dated October 14, 2021. TECHNIQUE: Frontal view of the chest was obtained. FINDINGS: The heart is normal in size for this projection and level of inspiration. There are low lung volumes. No consolidation. There is blunting of the left costophrenic angle. A small left pleural effusion cannot be excluded. No pneumothorax. No acute osseous abnormality. XR/XR chest 1V IMPRESSION: Blunting of the left costophrenic angle. A small left pleural effusion cannot be excluded. Electronically signed by: Kasi Champion DO 07/22/2024 02:27 PM EDT
--- NOTE | ~2024-07-22 | CT_ITS ---
EXAMINATION: CT CERVICAL SPINE WITHOUT CONTRAST CLINICAL INFORMATION: Fall. COMPARISON: CT cervical spine dated July 29, 2023. TECHNIQUE: Noncontrast computed tomography of the cervical spine was performed. This CT examination was performed using dose optimization techniques as appropriate, variously including the following: *Automated exposure control *Adjustment of mA and/or kV according to patient size (this includes techniques or standardized protocols for targeted exams where dose is matched to indication/reason for exam; i.e. extremities or head) *Use of iterative reconstruction technique DLP: 1106 mGy-cm FINDINGS: The prevertebral soft tissue is normal in appearance. Vertebral body alignment is anatomic in the sagittal projection. The posterior elements are anatomically aligned. The atlantooccipital articulations are intact. The C1-C2 relationship is anatomic. The dens is intact. Vertebral body heights are preserved. Intervertebral disc space heights are preserved. There are bridging osteophytes at C6-7. No acute cervical spine fracture. There is a suggestion of a groundglass opacity within the posterior left lung apex. The thyroid gland is normal in appearance. CT/CT cervical spine wo IV con IMPRESSION: No acute osseous cervical spine abnormality. There is a suggestion of a groundglass opacity within the posterior left lung apex. In the setting of trauma a small pulmonary contusion cannot be excluded. Fleischner guidelines were followed. Electronically signed by: Kasi Champion DO 07/22/2024 02:37 PM EDT
[2024-07-22 11:52] VITALS: BP 151/74; PULSE 58; PULSE 61; RESP 18; TEMP 36.5; O2SAT 99; BMI 25.9
--- NOTE | 2024-07-22 11:57 | ED.FALL ---
HPI - Fall General Chief Complaint: Fall Stated Complaint: MULT FALLS,RT HIP PAIN,-THIN-HS,+COLLAR,DEMENTIA Time Seen by Provider: 07/22/24 11:56 Source: patient, family, EMS, RN notes reviewed and old records reviewed Mode of arrival: EMS History of Present Illness ED Provider: Bushra Alcantar PA-C HPI Narrative: 83-year-old female with a past medical history of HLD, HTN, CVA, NSTEMI, dementia, CAD on Plavix, presenting to ED via EMS complaining of right hip pain s/p fall yesterday. History obtained from patient's son who states patient fell off couch yesterday, mechanical trip and fall with + head strike, denies LOC. At baseline ambulates with walker. Son admits patient has been ambulatory since incident. States patient did not want to be evaluated yesterday after incident. Denies recurrent fall today. Patient is A&O x0. Only complaint is right hip pain. Denies headache, neck/back pain, CP/SOB, abdominal pain. Related Data Home Medications ?Medication ?Instructions ?Recorded ?Confirmed amitriptyline 10 mg tablet 10 mg PO BEDTIME 08/02/20 07/23/24 albuterol sulfate 90 mcg/actuation 2 puff PO Q4H PRN Wheezing 06/27/21 07/23/24 aerosol inhaler docusate sodium 100 mg capsule 1 cap PO BID 06/27/21 07/23/24 mirtazapine 30 mg tablet 1 tab PO BEDTIME 06/27/21 07/23/24 polyethylene glycol 3350 17 17 g PO DAILY 06/27/21 07/23/24 gram/dose oral powder sertraline 25 mg tablet 1 tab PO DAILY 06/27/21 07/23/24 clopidogrel 75 mg tablet 1 tab PO QAM 09/02/22 07/23/24 pantoprazole 40 mg tablet,delayed 1 tab PO BID 09/02/22 07/23/24 release calcium carbonate 500 mg-vitamin 1 tab PO BID 07/23/24 07/23/24 D3 10 mcg (400 unit) tablet (Oyster Shell Calcium-Vitamin D3) melatonin 5 mg tablet 5 mg PO BEDTIME PRN insomnia 07/23/24 07/23/24 Previous Rx's ?Medication ?Instructions ?Recorded arm brace (Wrist Brace) #1 ea 08/09/20 atorvastatin 40 mg tablet 40 mg PO DAILY #90 tabs 02/26/21 metoprolol succinate 25 mg 25 mg PO DAILY #90 tabs 02/26/21 tablet,extended release 24 hr cefuroxime axetil 250 mg tablet 250 mg PO BID #10 tabs 07/23/24 Allergies Allergy/AdvReac Type Severity Reaction Status Date / Time No Known Allergies Allergy Unknown UNKNOWN Verified 07/22/24 11:55 [NO KNOWN ALLERGIES] Review of Systems Review of Systems: Yes all other systems are reviewed and are negative Constitutional: Constitutional: Reports as per [facility] Past Medical History Attestation statement: The following information was validated with the patient. Source: old records reviewed Medical History Gallstones Abnormal nuclear stress test HLD (hyperlipidemia) HTN (hypertension) CVA, old, disturbances of vision (~09/2019) NSTEMI (non-ST elevated myocardial infarction) Dementia Coronary artery disease Family History Family History Father No problems noted. Mother No problems noted. 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 Physical Exam Vital Signs: Vital Signs: Last Vital Signs Temp 98.7 F 07/23/24 07:58 Pulse 66 07/23/24 09:51 Resp 17 07/23/24 09:51 BP 134/59 L 07/23/24 09:51 Pulse Ox 94 07/23/24 09:51 O2 Del Method Room Air 07/23/24 09:51 BMI result Body Mass Index 25.9 Const: General: cooperative, no acute distress, alert and awake Limitations: no limitations HEENT: Head: Yes normal to inspection and Yes atraumatic Ears: hearing grossly normal bilaterally General nose exam: Normal external nose present Face and sinus: Yes normal facial exam Mouth: Normal oral and palatal mucosa present Eyes: General: appearance normal, both eyes and all related structures Pupils: Equal, round and reactive pupils present EOM: EOMs intact bilaterally Neck: Neck: Yes normal visual inspection and Yes no meningeal signs Resp: Effort & Inspection: normal respiratory effort and no respiratory distress Auscultation: clear to auscultation bilaterally Cardio: Rate: regular rate Heart sounds: S1 normal heart sound present and S2 normal heart sound present GI: Inspection: Yes normal to inspection Palpation (GI): Soft to palpation, nontender, no guarding and not rigid Back/Spine/Pelvis: Other: No midline cervical/thoracic/lumbar spinous tenderness/step-off or deformity Skin: Rashes: no rashes Wounds: no wounds Neuro: General: tone normal, moves all extremities and no meningeal signs Cranial nerves: Yes CN's II-XII intact bilaterally and Yes Equal, round and reactive pupils present Extrem: Other: Pelvis stable. RLE internally rotated. + right hip tenderness with limited ROM secondary to pain. Neurovascularly intact distally. General: Yes normal to inspection Course Course Course Narrative: -1414--no leukocytosis. Initial troponin 3.5 > will obtain 3 hour repeat -UA contaminated however appears infected. Will give dose of IV Rocephin in the ED 144--CT cervical spine wo IV con IMPRESSION: No acute osseous cervical spine abnormality. There is a suggestion of a groundglass opacity within the posterior left lung apex. In the setting of trauma a small pulmonary contusion cannot be excluded. Fleischner guidelines were followed. XR chest 1V IMPRESSION: Blunting of the left costophrenic angle. A small left pleural effusion cannot be excluded. > will obtain CT chest with IV contrast for further evaluation. CT head/brain wo IV con IMPRESSION: No acute intracranial pathology. Mild to moderate microvascular ischemic change. XR hip RT w PEL1V IMPRESSION: No fracture or dislocation. Degenerative disease. > patient ambulated in the ED with slow steady gait -repeat troponin without significant rise, MA unlikely 1817--CT chest w IV con IMPRESSION: Decreased bone mineral density. Moderate compression deformity of L2, new compared with July 29, 2023. Recommend clinical correlation. No evidence of pulmonary contusion or hemothorax. Additional findings as above. -1823--spoke with patients monika Bustamante & they are interested in PT/CM. Physician observation intitated 182307/23/24 @ 12:30 - Physician observation continued overnight. No acute overnight events. Patient seen and evaluated by Physical therapy who is recommending home with services. Case management aware and arranging Services for home. Granddaughter is going to pick her up. She was found have a UTI and was started on Rocephin yesterday. Ceftin given this morning. Will discharge home with prescription for Ceftin. Encourage outpatient follow-up with PCP. At this time she is not requiring medical admission and can safely be discharged home with services. Stable for discharge home. Physician observation discontinued at this time Medications Administered Discontinued Medications Generic Name Dose Route Start Last Admin Trade Name Freq PRN Reason Stop Dose Admin Acetaminophen 975 mg 07/23/24 11:44 07/23/24 12:02 Acetaminophen 325 Mg Tablet PO 07/23/24 11:45 975 mg ONCE ONE Administration Ceftriaxone Sodium 1 gm 07/22/24 14:13 07/22/24 15:11 Ceftriaxone Sodium 1 Gm Vial IVPUSH 07/22/24 14:14 1 gm ONCE ONE Administration Cefuroxime Axetil 250 mg 07/23/24 11:44 07/23/24 12:02 Cefuroxime Axetil 250 Mg Tablet PO 07/23/24 11:45 250 mg ONCE ONE Administration Iohexol 100 ml 07/22/24 15:33 07/22/24 15:33 Iohexol 350 Mg/Ml 100 Ml Infus..Btl IV 07/22/24 15:34 65 ml ONCE ONE Administration Medical Decision Making Medical Decision Making MDM Narrative: 83-year-old female with a past medical history of HLD, HTN, CVA, NSTEMI, dementia, CAD on Plavix, presenting to ED via EMS complaining of right hip pain s/p fall yesterday. On exam vital signs stable, NAD, nontoxic appearing, A&Ox0 with baseline dementia, no focal neuro deficits, no midline spinous tenderness. Right hip with reproducible tenderness and limited ROM, internally rotated. Concern for fracture vs ICH. Rule out metabolic infectious etiologies. Plan: EKG, labs, UA, imaging, re-evaluate Please refer to course for remaining clinical decision making, interpretation of labs/imaging results, and discussions with consultants and/or family members. Differential Diagnosis Differential Diagnoses: The differential diagnosis associated with the presentation includes As above Admission/Observation Consideration of admission/observation: Escalation of care including admission/observation considered Lab Data MDM Lab Attestation statement: I reviewed the patient's lab results. 07/22/24 12:55 07/22/24 12:55 Labs: Lab Results 07/22/24 07/22/24 07/22/24 Range/Units 12:55 13:30 16:10 WBC 8.6 (4.8-10.8) X10*3/uL RBC 4.29 (4.20-5.50) X10*6/uL Hgb 14.0 (12.0-16.0) g/dl Hct 40.9 (37.0-47.0) % MCV 95.3 (80.0-98.0) fL MCH 32.6 (27.0-33.0) pg MCHC 34.2 (31.0-35.0) g/dl RDW 12.9 (11.0-16.0) % Plt Count 339 D (160-400) X10*3/uL MPV 11.3 (9.4-12.3) fL Immature Gran % (Auto) 0.4 (0.0-0.4) % Neut % (Auto) 54.0 (45-73) % Lymph % (Auto) 33.0 (20-40) % [place] % (Auto) 10.4 (2-11) % Eos % (Auto) 1.8 (0-4) % Baso % (Auto) 0.4 (0-2) % Lymph # (Auto) 2.8 (1.2-4.9) X10*3/uL [place] # (Auto) 0.9 (0.1-1.2) X10*3/uL Eos # (Auto) 0.2 (0.0-0.4) X10*3/uL Baso # (Auto) 0.0 (0.0-0.2) X10*3/uL Abs Immat Gran (auto) 0.03 (0.00-0.03) X10*3/uL Absolute Neuts (auto) 4.6 (2.0-8.3) x10*3/uL Absolute Nucleated RBC 0.000 (0.0-0.012) X10*3/uL Nucleated RBC % (auto) 0.0 (0.0-0.2) /100WBC PT 12.6 H (10.9-12.4) SEC INR 1.1 (0.9-1.1) APTT 27.5 (26.0-36.8) SEC Sodium 142 (135-145) mmol/L Potassium 3.9 (3.3-5.1) mmol/L Chloride 106 (96-108) mmol/L Carbon Dioxide 29 (22-29) mmol/L Anion Gap 11 L (12-20) BUN 12 (9-16) mg/dL Creatinine 0.71 (0.5-1.4) mg/dL Estim Creat Clear Calc 42.5 Estimated GFR > 60 Random Glucose 129 H (60-115) mg/dL Calcium 10.1 D (8.4-10.2) mg/dL Magnesium 1.9 (1.6-2.6) mg/dL Total Bilirubin 0.3 (0.0-1.0) mg/dL Direct Bilirubin 0.1 (0.0-0.5) mg/dL AST 17 (5-31) U/L ALT 12 (0-31) U/L Alkaline Phosphatase 70 (39-117) U/L Troponin I High Sens 3.5 4.2 (<3.5-17.0) ng/L Total Protein 7.7 (6.5-8.0) g/dL Albumin 3.9 (3.5-5.0) g/dL Urine Color Dark Yellow Urine Appearance Cloudy Urine pH 6.0 (5.0-9.0) Ur Specific [place] 1.025 (1.005-1.025) Urine Protein Trace (Neg-Trace) mg/dL Urine Glucose (UA) Negative (Negative) mg/dL Urine Ketones Negative (Negative) mg/dL Urine Blood Small (1+) H (Negative) Urine Nitrite Positive H (Negative) Ur Leukocyte Esterase Large (3+) H (Negative) Urine RBC 3-5 H (0-2) /HPF Urine WBC 21-50 H (0-5) /HPF Ur Squamous Epith Cells 6-10 (0-2) /HPF Urine Bacteria 4+ (None Seen) Hyaline Casts 0-2 (0-2) /LPF Independent Interpretation I performed an independent interpretation of an: EKG, Plain X-Ray and CT Scan Radiology Impression Discussion of test interpretation with radiology: I have reviewed the radiologist's reading. Independent Historian Clinical information obtained from an independent historian. History obtained from or confirmed by: EMS and Other (son) External Record Review External record reviewed: Inpatient record, Office record, Outpatient record, Prior outpatient labs, Prior outpatient radiology, Primary care record and Outside ED record Tests considered The following testing was considered but not selected: As above Prescription Management I considered prescription management with: Pain Medication Chronic Conditions Patient?s care impacted by: Hypertension and Other Social Determinants Patient?s care significantly limited by Social Determinants of Health including: Problems related to primary support group and Other Social Determinant of Health Discharge Plan Discharge Clinical Impression: Compression fracture of L2, Fall, Acute UTI Patient Disposition: Home, Self-Care Instructions: Vertebral Compression Fracture (ED), Fall Prevention for Older Adults (ED), Urinary Tract Infection in Older Adults (ED) Additional Instructions: You were found to have urinary tract infection. You were started on antibiotics. Next dose is due tonight. [facility] up from the [facility] on [facility]. Complete the entire course of antibiotics. Drink plenty of fluids. Your found to have a compression fracture in your back. Treatment is supportive care including pain control. You can also follow-up with your doctor to see if you are a candidate for kyphoplasty, which is a procedure where they inject cement into the fracture site to help with severe and chronic pain Follow-up with your doctor If you develop new or worsening symptoms call 911 or come back to the ER for further evaluation. EXAMINATION: CT CHEST WITH CONTRAST CLINICAL INFORMATION: Status post fall. Question hemothorax versus pulmonary contusion. COMPARISON: CT scans dating between July 29, 2023 and August 30, 2014. TECHNIQUE: Multidetector volumetric CT imaging of the chest was obtained after the administration of 65 mL of Omnipaque 350 intravenous contrast without immediate adverse reactions. Axial MIP volume rendering provided. Sagittal and coronal reformatted images were obtained. This CT examination was performed using dose optimization techniques as appropriate, variously including the following: *Automated exposure control *Adjustment of mA and/or kV according to patient size (this includes techniques or standardized protocols for targeted exams where dose is matched to indication/reason for exam; i.e. extremities or head) *Use of iterative reconstruction technique DLP: 203 mGy-cm FINDINGS: LUNGS: Mild diffuse chronic interstitial fibrotic change with a peripheral and basilar predominance. Mild associated traction bronchiectasis, most notably in the left lower lobe. Mild bronchial wall thickening. No consolidation identified. Patent central bronchi. MEDIASTINUM: Vascular tortuosity consistent with hypertension. 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 Heart normal in size. No pericardial effusion. No evidence of adenopathy by size criteria. Unremarkable appearance of the thyroid gland. CORONARY ARTERIAL CALCIFICATION: Severe. PLEURA: There is no pleural effusion. No pleural mass or thickening. AXILLA: No lymphadenopathy by size criteria. UPPER ABDOMEN: Cholelithiasis. No evidence of gallbladder wall thickening or pericholecystic inflammatory change. Suspect small hiatus hernia. Small bilateral renal cortical scars most notably involving the left lower pole. OSSEOUS STRUCTURES: Decreased bone mineral density. Moderate compression deformity of L2, new compared with July 29, 2023. Mild compression deformities of T4 and T11, unchanged compared with July 29, 2023. CT/CT chest w IV con IMPRESSION: Decreased bone mineral density. Moderate compression deformity of L2, new compared with July 29, 2023. Recommend clinical correlation. No evidence of pulmonary contusion or hemothorax. Prescriptions: New cefuroxime axetil 250 mg tablet 250 mg PO BID Qty: 10 0RF No Action atorvastatin 40 mg tablet 40 mg PO DAILY Qty: 90 3RF metoprolol succinate 25 mg tablet extended release 24 hr 25 mg PO DAILY Qty: 90 1RF mirtazapine 30 mg tablet 1 tab PO BEDTIME docusate sodium 100 mg capsule 1 cap PO BID sertraline 25 mg tablet 1 tab PO DAILY polyethylene glycol 3350 17 gram/dose powder 17 g PO DAILY albuterol sulfate 90 mcg/actuation HFA aerosol inhaler 2 puff PO Q4H PRN (Reason: Wheezing) clopidogrel 75 mg tablet 1 tab PO QAM pantoprazole 40 mg tablet,delayed release (DR/EC) 1 tab PO BID calcium carbonate-vitamin D3 [Oyster Shell Calcium-Vit D3] 500 mg-10 mcg (400 unit) tablet 1 tab PO BID melatonin 5 mg tablet 5 mg PO BEDTIME PRN (Reason: insomnia) amitriptyline 10 mg tablet 10 mg PO BEDTIME (DME) Wrist Brace Misc See Rx Instructions .MEDSUPPLY Qty: 1 0RF Rx Instructions: COMFORT FORM WRIST, RT, S Disp 1 REfill 0 Referrals: Yuliya CLEARYA [Outside] - 3 days (HOME PHYSICAL THERAPY WITH FIRST VISIT ON WEDNESDAY 07/25. ) Name,MD Stef [Primary Care Provider] - 1 week Print Language: Armenian
--- NOTE | 2024-07-22 12:08 | ECG_ITS ---
Test Reason : FALL Blood Pressure : / mmHG Vent. Rate : 056 BPM Atrial Rate : 056 BPM P-R Int : 130 ms QRS Dur : 092 ms QT Int : 498 ms P-R-T Axes : 046 023 046 degrees QTc Int : 480 ms Sinus bradycardia cannot exclude old Lateral infarct (cited on or before 22-JUL-2024) Abnormal ECG When compared with ECG of 01-SEP-2022 23:30, No significant change was found Referred By: Bushra Alcantar Electronically Signed By:ABBY GRIMM
[2024-07-22 13:01] LABS: Basophils Percent Auto 0.4 % (0-2); Eosinophils Absolute Auto 0.2 X10*3/uL (0.0-0.4); Eosinophils Percent Auto 1.8 % (0-4); Hematocrit 40.9 % (37.0-47.0); Imm Gran Abs Auto 0.03 X10*3/uL (0.00-0.03); Imm Gran Pct Auto 0.4 % (0.0-0.4); Lymphocytes Absolute Auto 2.8 X10*3/uL (1.2-4.9); MANUAL DIFF FLAG NO; Mean Corpuscular HGB Conc 34.2 g/dl (31.0-35.0); Mean Corpuscular Hemoglobin 32.6 pg (27.0-33.0); Mean Corpuscular Volume 95.3 fL (80.0-98.0); Mean Platelet Volume 11.3 fL (9.4-12.3); Monocytes Absolute Auto 0.9 X10*3/uL (0.1-1.2); Monocytes Percent Auto 10.4 % (2-11); Neutrophils Absolute Auto 4.6 x10*3/uL (2.0-8.3); Platelet Count 339 X10*3/uL (160-400); Red Blood Count 4.29 X10*6/uL (4.20-5.50); Red Cell Distribution Width 12.9 % (11.0-16.0); White Blood Count 8.6 X10*3/uL (4.8-10.8)
[2024-07-22 13:09] LABS: INTERNATIONAL NORM RATIO 1.1 (0.9-1.1); Prothrombin Time 12.6 SEC (10.9-12.4)
[2024-07-22 13:20] LABS: Alanine Aminotransferase 12 U/L (0-31); Albumin Level 3.9 g/dL (3.5-5.0); Alkaline Phosphatase 70 U/L (39-117); Anion Gap 11 (12-20); Aspartate Amino Transferase 17 U/L (5-31); Bilirubin Direct 0.1 mg/dL (0.0-0.5); Bilirubin Total 0.3 mg/dL (0.0-1.0); Blood Urea Nitrogen 12 mg/dL (9-16); Calcium 10.1 mg/dL (8.4-10.2); Carbon Dioxide 29 mmol/L (22-29); Chloride 106 mmol/L (96-108); Creatinine Clr Calc Pharmacy 42.5; Estimated Glomerular Filt Rate > 60; Glucose Random 129 mg/dL (60-115); Magnesium 1.9 mg/dL (1.6-2.6); Potassium 3.9 mmol/L (3.3-5.1); Sodium 142 mmol/L (135-145); Total Protein 7.7 g/dL (6.5-8.0)
[2024-07-22 13:28] LABS: Troponin-I High Sensitivity 3.5 ng/L (<3.5-17.0)
[2024-07-22 13:38] LABS: Appearance Urine Cloudy; Color Urine Dark Yellow; Glucose Urine UA Negative (Negative); Leukocyte Esterase Urine Large (3+) (Negative); Nitrite Urine Positive (Negative); Specific Gravity - Urine 1.025 (1.005-1.025); UMIC TRIGGER UACC YES; Urine Blood Small (1+) (Negative); Urine Ketones Negative (Negative); Urine Protein Trace mg/dL (Neg-Trace)
[2024-07-22 13:53] LABS: Bacteria Urine 4+ (None Seen); Hyaline Casts Urine 0-2 /LPF (0-2); UACC Culture Trigger YES; WBC Urine 21-50 /HPF (0-5)
[2024-07-22 14:58] VITALS: BP 142/56; PULSE 59; RESP 17; TEMP 37.1; O2SAT 96
[2024-07-22 15:11] LABS: Partial Thromboplastin Time 27.5 SEC (26.0-36.8)
[2024-07-22] MEDS: cefTRIAXone sodium 1 GM VIAL IVPUSH (15:11)
[2024-07-22] MEDS: iohexoL 350 MG/ML 100 ML INFUS..BTL IV (15:33)
--- NOTE | 2024-07-22 15:46 | MHC.EDTECH ---
This tech performed an ambulation trial on patient at RN Susie request. With a walker patient ambulated well, with slow steady gait. Tolerated well.
[2024-07-22 16:37] LABS: Troponin-I High Sensitivity 4.2 ng/L (<3.5-17.0)
[2024-07-22 20:44] VITALS: BP 136/71; PULSE 60; RESP 12; TEMP 36.5; O2SAT 95
[2024-07-23] VITALS: BP 118/55; PULSE 63; RESP 16; TEMP 37.1; O2SAT 96
[2024-07-23 04:00] VITALS: BP 134/71; PULSE 61; RESP 18; TEMP 37.1; O2SAT 97
--- NOTE | 2024-07-23 06:35 | PC.NURSE ---
pt reposition for comfort.
[2024-07-23 07:58] VITALS: BP 115/67; PULSE 65; RESP 16; TEMP 37.1; O2SAT 95
--- NOTE | 2024-07-23 08:16 | PC.NURSE ---
Care of Pt assumed at change of shift. Pt ate breakfast and is now resting quietly. No complaints offered and Pt is awaiting CM.
--- NOTE | 2024-07-23 08:35 | PC.NURSE ---
PT at bedside for eval.
[2024-07-23 09:51] VITALS: BP 134/59; PULSE 66; RESP 17; O2SAT 94
--- NOTE | 2024-07-23 10:27 | MHC.CM.PN ---
Addendum entered by Arleen Sosa RN 07/23/24 13:08: [facility] WILL PROVIDE HOME PT W/SOC JOSE MIGUEL 07/25. Addendum entered by Arleen Sosa RN 07/23/24 10:34: [facility] WILL RETURN THIS AFTERNOON TO TRANSPORT PT. Original Note: CM RECEIVED CM CONSULT ED PROVIDER, CM CONTACTED PT'S SON DANIELLE D/T PT'S DEMENTIA, DANIELLE PASSED PHONE TO [phone], [facility]TT PT LIVES AT HOME W/[address], PT USES A WALKER AND FAMILY IS LOOKING FOR A BEDSIDE COMMODE PT FALLS WALKING TO THE BR AT NIGHT, SHE REPORTS PT LIVES IN AN AREA WHERE PEOPLE STEAL DELIVERIES, [facility] PROVIDED W/FREE [facility] ADDR[address] IN [place] FOR FREE [employer]. PT HAS [employer] HRS AND P.T. IS RECOMMENDING HOME W/PT, FAMILY SUPPORT AND A FWW, [facility] CONFIRMS PT ALREADY HAS WALKER AND THAT THEY (FAMILY) WILL BE MORE DILIGENT IN MAKING SURE SHE USES IT. [facility] REPORTS FAMILY HAS NO PREFERENCE ON [facility] COMPANIES AND REFERRAL PLACED TO [facility] AND [facility]. PCP VERIFIED JACKIE NAME AND HCP ON FILE FROM PREVIOUS ADMIT.
--- NOTE | 2024-07-23 10:37 | PHA.MEDREC ---
Pharmacy Consult ? Medication Reconciliation Pharmacy has completed the medication reconciliation. MED REC COMPLETE USING CLAIM HISTORY. PT USES MED BOX AND IS UNABLE TO PROVIDE INFORMATION ABOUT HOME MEDICATION USE.
--- NOTE | 2024-07-23 10:48 | PC.NURSE ---
Family calls this RN to the room to discuss plan of care. Advised that Pt was seen by PT and will have CM involved to make a plan. Pt expresses wishes to have PT at home and would like to avoid any STR or SNF if possible. Jenny bishop by phone @ [phone]
--- NOTE | 2024-07-23 11:42 | PC.NURSE ---
this nurse assummed care of pt at 1100- pt complaints of hunger- provided with sandwich and Gingerale, warm blanket given,pt repositioned in bed, purewick in place
[2024-07-23] MEDS: cefuroxime axetiL 250 MG TABLET PO (12:02)
[2024-07-23] MEDS: Acetaminophen 325 MG TABLET 975 MG PO (12:02)
[2024-07-23 13:45] VITALS: BP 134/59; PULSE 66; RESP 17; TEMP 37.1; O2SAT 94
== END 2024-07-23 13:48 | disposition home or self-care (01) ==
PROVIDERS: Physician Assistant; Emergency Provider Internal Medicine; PCP Internal Medicine Geriatric Medicine
DX: N39.0 Urinary tract infection, site not specified (principal); S32.029A Unspecified fracture of second lumbar vertebra, initial encounter for closed fracture; W07.XXXA Fall from chair, initial encounter; Y93.9 Activity, unspecified; Y92.9 Unspecified place or not applicable; Y99.9 Unspecified external cause status; M25.551 Pain in right hip; I10 Essential (primary) hypertension; E78.5 Hyperlipidemia, unspecified
CPT/HCPCS: 36415; 70450; 71045; 71260; 72125; 73502; 80048; 80076; 81001; 83735; 84484; 85025; 85610; 85730; 87086; 93005; 96374; 97162; 99285; J0696; Q9967

== ENCOUNTER → 2024-07-22 12:08 | Outpatient (BNV) | payer OTHER, SELFPAY | PROVIDERS: Emergency Provider Internal Medicine; PCP Internal Medicine Geriatric Medicine; Visit Provider Internal Medicine | DX: R94.31 Abnormal electrocardiogram [ECG] [EKG] (principal) | CPT/HCPCS: 93010 ==

== ENCOUNTER 2024-08-04 10:34 | Inpatient (IN) | payer OTHER, SELFPAY ==
[2024-08-04] VITALS (7 sets, daily range): BP systolic 100–152; BP diastolic 60–84; PULSE 68–93; RESP 16–21; TEMP 36.4–36.8; O2SAT 92–96; BMI 19.9
--- NOTE | ~2024-08-04 | CT_ITS ---
EXAMINATION: CT ABDOMEN AND PELVIS WITHOUT CONTRAST CLINICAL INFORMATION: Abdominal pain. COMPARISON: CT dated July 29, 2023 TECHNIQUE: Multidetector volumetric imaging was performed from the superior aspect of the liver through the pubic symphysis. Sagittal and coronal reformatted images were obtained on the technologist's workstation. This CT examination was performed using dose optimization techniques as appropriate, variously including the following: *Automated exposure control *Adjustment of mA and/or kV according to patient size (this includes techniques or standardized protocols for targeted exams where dose is matched to indication/reason for exam; i.e. extremities or head) *Use of iterative reconstruction technique DLP: 399 mGy-cm FINDINGS: Limited evaluation of the intra-abdominal organs and vascular structures due to lack of IV contrast. Limited by patient's motion artifact. LIVER, GALLBLADDER, AND BILIARY TREE: Liver measures 11 cm. No intrahepatic biliary ductal dilatation. Multiple layering calcifications in the gallbladder lumen. No pericholecystic fluid collection or gallbladder wall thickening. No intrahepatic or extrahepatic biliary ductal dilatation. PANCREAS: No peripancreatic fluid collections or main pancreatic ductal dilatation. Reduced volume of the pancreatic parenchyma. Fatty density in the head and uncinate process. SPLEEN: 5 cm. ADRENAL GLANDS: No nodular lesions. KIDNEYS AND URETERS: No hydronephrosis involving either kidney. There are a few scattered less than 2 mm nonobstructing calculi in the pelvicalyceal system left kidney. BLADDER: Fluid-filled. GASTROINTESTINAL TRACT: Abundant stool. No intestinal obstruction pattern. No ascites. No pneumoperitoneum. No pneumatosis intestinalis. The appendix appears short. ABDOMINAL WALL: Fat-containing umbilical hernia, small volume. Fat-containing inguinal hernias, bilaterally. LYMPH NODES: No lymphadenopathy. VASCULAR: Throughout the abdominal aorta wall, the iliac arteries and the origin of the mesenteric arteries. No aneurysm, abdominal aorta. . OSSEOUS STRUCTURES: Superior endplate compression fracture deformity representing 50% volume loss with 5 mm retropulsion upon central canal involving L2 vertebra. Superior endplate compression deformity at T11 representing 10% volume loss. Hiatal hernia. Calcified plaque mitral valve. Calcified plaques in the thoracic aorta. Patchy pulmonary groundglass, left lung base. CT/CT abdomen pelvis wo IV con IMPRESSION: Acute to subacute superior endplate compression deformity L2 vertebra with] millimeter of retropulsion upon central canal. Cholelithiasis. Nonobstructing nephrolithiasis, left kidney. Fat-containing umbilical hernia. Hiatal hernia. Calcified mitral valve. Discussed with the ordering physician in the emergency department on 08/04/2024 at 1:38 PM Fleischner guidelines were followed. Electronically signed by: Abdirashid Villarreal MD 08/04/2024 02:00 PM EDT
--- NOTE | ~2024-08-04 | CT_ITS ---
EXAMINATION: CT HEAD WITHOUT CONTRAST CLINICAL INFORMATION: Fall. COMPARISON: None available. TECHNIQUE: Contiguous axial imaging was performed from the skull base to vertex without intravenous administration of contrast. This CT examination was performed using dose optimization techniques as appropriate, variously including the following: *Automated exposure control *Adjustment of mA and/or kV according to patient size (this includes techniques or standardized protocols for targeted exams where dose is matched to indication/reason for exam; i.e. extremities or head) *Use of iterative reconstruction technique DLP: 518 mGy-cm FINDINGS: No intracranial hemorrhage, large infarction, or mass lesion is seen. Diffuse, age-appropriate cortical atrophy and chronic bilateral periventricular white matter ischemic change. No extra-axial collection is appreciated. The ventricles are normal in size and configuration without evidence of hydrocephalus. The visualized paranasal sinuses and mastoid air cells are clear. CT/CT head/brain wo IV con IMPRESSION: No acute intracranial finding. Electronically signed by: Abner Yip MD 08/06/2024 05:30 PM EDT
--- NOTE | ~2024-08-04 | XR_ITS ---
EXAMINATION: XR CHEST CLINICAL INFORMATION: Dyspnea COMPARISON: 07/22/2014. TECHNIQUE: AP portable view of the chest was obtained. FINDINGS: The aorta is calcified, uncoiled and tortuous. Heart size is normal. There is dense calcification of the mitral annulus. The hilar structures appear normal. There are low lung volumes bilaterally with minimal patchy opacities in the right greater than left bases, most likely atelectasis although pneumonia cannot be excluded given the appearance. No pneumothorax or effusion. 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 Mild to moderate degenerative changes in the right glenohumeral joint. No suspicious bone lesions. XR/XR chest 1V IMPRESSION: -Patchy bibasilar opacities, query atelectasis versus pneumonia in the appropriate setting. -Ancillary findings as discussed. Electronically signed by: Oscar Harris MD 08/04/2024 12:31 PM EDT
--- NOTE | ~2024-08-04 | US_ITS ---
EXAMINATION: US ABDOMEN LIMITED CLINICAL INFORMATION: Gallstones, epigastric pain, nausea and vomiting. Assess cholecystitis. COMPARISON: CT abdomen/pelvis dated 08/04/2024. TECHNIQUE: Real-time imaging of the gallbladder and common bile duct. FINDINGS: GALLBLADDER: Multiple gallstones. No gallbladder wall thickening, pericholecystic free fluid, or right upper quadrant tenderness during the examination to suggest acute cholecystitis. COMMON BILE DUCT: Normal in caliber measuring 0.6 cm in diameter. US/US abdomen limited IMPRESSION: Cholelithiasis. No gallbladder wall thickening, pericholecystic free fluid, or right upper quadrant tenderness during the examination to suggest acute cholecystitis. Electronically signed by: Vazquez Good MD 08/05/2024 11:25 AM EDT
--- NOTE | 2024-08-04 10:54 | ECG_ITS ---
Test Reason : chest pain Blood Pressure : / mmHG Vent. Rate : 081 BPM Atrial Rate : 081 BPM P-R Int : 124 ms QRS Dur : 092 ms QT Int : 434 ms P-R-T Axes : 048 -16 036 degrees QTc Int : 504 ms Sinus rhythm with Premature atrial complexes with Aberrant conduction Minimal voltage criteria for LVH, may be normal variant ( Eliazar product ) Lateral infarct (cited on or before 22-JUL-2024) Abnormal ECG When compared with ECG of 22-JUL-2024 12:32, Aberrant conduction is now Present Referred By: Kacey La Electronically Signed By:ABBY GRIMM
--- NOTE | 2024-08-04 10:59 | ED_ITS ---
HPI - Chest Pain General Chief Complaint: Chest Pain Stated Complaint: CP W/NAUSEA,VOMITING PER EMS Time Seen by Provider: 08/04/24 10:58 Source: patient and RN notes reviewed Mode of arrival: ambulatory Limitations: no limitations History of Present Illness ED Provider: Sharmila Cagle PA-C HPI narrative: This is a 83-year-old female, with a history of hyperlipidemia, hypertension, CVA, NSTEMI, dementia, CAD on Plavix, who presents emergency department with complaints of sore throat, chest pain, and abdominal pain for the last 2 days. She reports associated nausea and vomiting. She reports that the symptoms in her throat and chest as well as abdomen are intermittent. She reports that she would like ice. She is a poor historian due to back baseline dementia. Family reports that her last bowel movement they believe was yesterday. Family is concerned as she has not had a full meal in several days secondary to her symptoms. MD complaint: chest pain Pertinent past history: prior PA Onset (ago): day(s) Relieving factors: nothing Exacerbating factors: nothing Associated symptoms: nausea and vomiting Treatment prior to arrival: none Risk Factors Coronary artery disease risk factors: hyperlipidemia and hypertension Related Data Home Medications ?Medication ?Instructions ?Recorded ?Confirmed amitriptyline 10 mg tablet 10 mg PO BEDTIME 08/02/20 08/04/24 albuterol sulfate 90 mcg/actuation 2 puff PO Q4H PRN Wheezing 06/27/21 08/04/24 aerosol inhaler mirtazapine 30 mg tablet 1 tab PO BEDTIME 06/27/21 08/04/24 polyethylene glycol 3350 17 17 g PO DAILY PRN Constipation 06/27/21 08/04/24 gram/dose oral powder sertraline 25 mg tablet 1 tab PO DAILY 06/27/21 08/04/24 clopidogrel 75 mg tablet 1 tab PO DAILY 09/02/22 08/04/24 pantoprazole 40 mg tablet,delayed 1 tab PO BID@0630,1630 09/02/22 08/04/24 release calcium carbonate 500 mg-vitamin 1 tab PO BID 07/23/24 08/04/24 D3 10 mcg (400 unit) tablet (Oyster Shell Calcium-Vitamin D3) melatonin 5 mg tablet 5 mg PO BEDTIME PRN insomnia 07/23/24 08/04/24 acetaminophen 500 mg tablet 500 mg PO Q6H PRN Fever Or Pain 08/04/24 08/04/24 Previous Rx's ?Medication ?Instructions ?Recorded arm brace (Wrist Brace) #1 ea 08/09/20 atorvastatin 40 mg tablet 40 mg PO DAILY #90 tabs 02/26/21 metoprolol succinate 25 mg 25 mg PO DAILY #90 tabs 02/26/21 tablet,extended release 24 hr Allergies Allergy/AdvReac Type Severity Reaction Status Date / Time No Known Allergies Allergy Unknown UNKNOWN Verified 08/04/24 10:47 [NO KNOWN ALLERGIES] Review of Systems 2 Review of Systems: Yes all other systems are reviewed and are negative Constitutional: Constitutional: Reports as per [facility] Past Medical History Medical History (Updated 08/04/24 @ 22:11 by Josey Peñaloza MD) Nausea & vomiting Gallstones Abnormal nuclear stress test HLD (hyperlipidemia) HTN (hypertension) CVA, old, disturbances of vision (~09/2019) NSTEMI (non-ST elevated myocardial infarction) Dementia Coronary artery disease Family History Family History Father No problems noted. Mother No problems noted. 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 Physical Exam 2 Vital Signs: Vital Signs: Last Vital Signs Temp 97.7 F 08/05/24 07:32 Pulse 75 08/05/24 07:32 Resp 16 08/05/24 07:32 BP 139/61 08/05/24 07:32 Pulse Ox 96 08/05/24 07:32 O2 Del Method Room Air 08/05/24 07:32 BMI result Body Mass Index 19.9 Const: General: cooperative, comfortable and no acute distress O rientation/consciousness: patient oriented x3 Limitations: no limitations HEENT: Head: Yes normal to inspection, Yes normocephalic and Yes atraumatic Ears: hearing grossly normal bilaterally General nose exam: Normal external nose present Face and sinus: Yes normal facial exam Mouth: Normal oral and palatal mucosa present, oropharynx normal and moist mucous membranes Throat: Yes posterior oropharynx normal Eyes: General: appearance normal, both eyes and all related structures E yelids: Yes eyelids normal Conjunctivae: conjunctivae normal Sclerae: s clerae normal Pupils: Equal, round and reactive pupils present EOM: EOMs intact bilaterally Neck: Neck: Yes normal visual inspection, Yes full ROM and Yes no lymphadenopathy Lymphatic: no lymphadenopathy noted Chest: Chest palpation & inspection: normal inspection of the chest Resp: Effort & Inspection: normal respiratory effort and able to speak in complete sentences Auscultation: clear to auscultation bilaterally, no crackles, no rales, no rhonchi and no wheezes Cardio: Rate: regular rate Rhythm: regular rhythm Heart sounds: S1 normal heart sound present and S2 normal heart sound present GI: Other: Abdomen is soft however diffusely tender throughout the entire abdomen without any specific point tenderness. Inspection: Yes normal to inspection Skin: General skin exam: no rashes or lesions noted Trauma: no lacerations or abrasions Wounds: no wounds Neuro: General: patient oriented x3 and moves all extremities Cranial nerves: Yes Equal, round and reactive pupils present Cognition (Neuro): n ormal cognition Motor exam (neuro): 5/5 motor strength present throughout and Pronator motor function not present Coordination: [id number] test normal Romberg Test: Negative Extrem: General: Yes normal to inspection Right upper extremity: normal to inspection Left upper extremity: normal to inspection Right lower extremity: normal to inspection Left lower extremity: normal to inspection Course Reevaluation(s) Reevaluation #1: Urine turns, appears to be infected. Treated with ceftriaxone. Patient does have leukocytosis at 17.7, hypokalemia at 2.8 > treated with PO potassium 40meq, hyperglycemic at 174, troponin x2 is flat, awaiting BNP Time: 17:08 Reevaluation #2: BNP is within normal limits. Patient needing admission secondary to urinary tract infection and generalized weakness. Time: 19:06 Medications Administered Generic Name Dose Route Start Last Admin Trade Name Freq PRN Reason Stop Dose Admin Acetaminophen 975 mg 08/05/24 08:15 08/05/24 09:22 Acetaminophen 325 Mg Tablet PO 975 mg Q6H TAL Administration Ceftriaxone Sodium 1 gm 08/05/24 05:00 08/05/24 05:18 Ceftriaxone Sodium 1 Gm Vial IVPUSH 1 gm Q24H TAL Administration Heparin Sodium (Porcine) 5,000 unit 08/05/24 09:00 08/05/24 09:22 Heparin Sodium,Porcine 5,000 Unit/Ml Vial SUBCUT 5,000 unit Q12H TAL Administration Lactated Ringer's 1,000 mls @ 100 mls/hr 08/04/24 21:30 08/05/24 09:22 Lr IVCONT 100 mls/hr .Q10H TAL Administration Lidocaine 1 patch 08/05/24 09:00 08/05/24 09:25 Lidocaine 4 % Patch Adh..Patch TRANSDERMA 1 patch DAILY TAL Administration Protocol Metoclopramide HCl 5 mg 08/04/24 21:30 08/05/24 05:25 Metoclopramide Hcl 10 Mg/2 Ml Vial IVPUSH 5 mg Q8H TAL Administration Sodium Chloride 3 ml 08/05/24 00:00 08/05/24 09:26 0.9 % Sodium Chloride Flush 3 Ml Syringe IVFLUSH Not Given QSHIFT TAL Discontinued Medications Generic Name Dose Route Start Last Admin Trade Name Freq PRN Reason Stop Dose Admin Ceftriaxone Sodium 1 gm 08/04/24 16:16 08/04/24 16:28 Ceftriaxone Sodium 1 Gm Vial IVPUSH 08/04/24 16:17 1 gm ONCE ONE Administration Doxycycline Monohydrate 100 mg 08/04/24 19:36 08/04/24 19:56 Doxycycline Monohydrate 100 Mg Capsule PO 08/04/24 19:37 100 mg ONCE ONE Administration Sodium Chloride 500 mls @ 500 mls/hr 08/04/24 21:22 08/04/24 22:24 Ns IV 08/04/24 22:21 Infused .Q1H ONE Infusion Potassium Chloride 10 meq in 100 mls @ 100 mls/hr 08/04/24 22:55 08/05/24 00:28 Potassium Chloride/H20 IV 08/04/24 23:54 Infused Q1H STA Infusion Morphine Sulfate 2 mg 08/04/24 20:37 08/04/24 21:14 Morphine Sulfate 2 Mg/Ml Cartridge IVPUSH 08/04/24 20:38 2 mg ONCE STA Administration Protocol Pantoprazole Sodium 40 mg 08/04/24 20:37 08/04/24 21:14 Pantoprazole Sodium 40 Mg/10 Ml Vial IVPUSH 08/04/24 20:38 40 mg ONCE STA Administration Potassium Chloride 40 meq 08/04/24 16:16 08/04/24 16:26 Potassium Chloride Er 20 Meq Tab.Er.Prt PO 08/04/24 16:17 40 meq ONCE ONE Administration Prochlorperazine Edisylate 10 mg 08/04/24 20:30 08/04/24 21:14 Prochlorperazine Edisylate 10 Mg/2 Ml Vial IVPUSH 08/04/24 20:31 10 mg ONCE ONE Administration Medical Decision Making Medical Decision Making [facility] Narrative: This is a 83-year-old female who presents emergency department with complaints of sore throat, nausea, abdominal pain for the last 2 days. On arrival, vital signs within normal limits. She is alert and oriented to self only. Family reports that this is her baseline. Family reports that over the last several days she has had decreased appetite due to nausea and vomiting. Patient is speaking in full sentences under no acute distress. Difficult historian secondary to dementia. Differential diagnoses include viral syndrome, pneumonia, UTI, ACS. She was seen on July 22 after a fall, she was found to have urinary tract infection. She was discharged on cefuroxime. At that time was noted to have a moderate compression deformity at L2. Plan: Labs, EKG, chest x-ray, CT abdomen and pelvis without contrast Family members contact information: Robby Garcia - [phone] Marleen - Differential Diagnosis Differential Diagnoses: The differential diagnosis associated with the presentation includes See above Lab Data [facility] Lab Attestation statement: I reviewed the patient's lab results. Leukocytosis at 17 hypokalemia at 2.8, troponin x2 > 34.2/32.2 Urine with positive nitrites, moderate leuk esterases, and greater than 50 wbc's 08/05/24 10:47 08/05/24 10:47 Labs: Lab Results 08/04/24 08/04/24 08/04/24 Range/Units 11:54 13:50 15:39 WBC 17.7 H (4.8-10.8) X10*3/uL RBC 4.43 (4.20-5.50) X10*6/uL Hgb 14.7 (12.0-16.0) g/dl Hct 41.9 (37.0-47.0) % MCV 94.6 (80.0-98.0) fL MCH 33.2 H (27.0-33.0) pg MCHC 35.1 H (31.0-35.0) g/dl RDW 13.5 (11.0-16.0) % Plt Count 262 (160-400) X10*3/uL MPV 12.8 H (9.4-12.3) fL Immature Gran % (Auto) 0.6 H (0.0-0.4) % Neut % (Auto) 78.8 H (45-73) % Lymph % (Auto) 13.5 L (20-40) % Republic % (Auto) 6.8 (2-11) % Eos % (Auto) 0.1 (0-4) % Baso % (Auto) 0.2 (0-2) % Lymph # (Auto) 2.4 (1.2-4.9) X10*3/uL Republic # (Auto) 1.2 (0.1-1.2) X10*3/uL Eos # (Auto) 0.0 (0.0-0.4) X10*3/uL Baso # (Auto) 0.0 (0.0-0.2) X10*3/uL Abs Immat Gran (auto) 0.10 H (0.00-0.03) X10*3/uL Absolute Neuts (auto) 14.0 H (2.0-8.3) x10*3/uL Absolute Nucleated RBC 0.000 (0.0-0.012) X10*3/uL Nucleated RBC % (auto) 0.0 (0.0-0.2) /100WBC Sodium 143 (135-145) mmol/L Potassium 2.8 L* D (3.3-5.1) mmol/L Chloride 100 (96-108) mmol/L Carbon Dioxide 30 H (22-29) mmol/L Anion Gap 16 (12-20) BUN 26 H (9-16) mg/dL Creatinine 0.76 (0.5-1.4) mg/dL Estim Creat Clear Calc 45.1 Estimated GFR > 60 Random Glucose 174 H (60-115) mg/dL Lactic Acid 1.5 (0.5-2.0) mmol/L Calcium 10.2 (8.4-10.2) mg/dL Magnesium 1.9 (1.6-2.6) mg/dL Total Bilirubin 0.8 (0.0-1.0) mg/dL AST 26 (5-31) U/L ALT 8 (0-31) U/L Alkaline Phosphatase 93 (39-117) U/L Troponin I High Sens 34.2 H D 32.2 H (<3.5-17.0) ng/L B-Natriuretic Peptide 57 (<100) pg/mL Total Protein 7.9 (6.5-8.0) g/dL Albumin 4.0 (3.5-5.0) g/dL Lipase 14 (8-78) U/L Urine Color Urine Appearance Urine pH (5.0-9.0) Ur Specific [place] (1.005-1.025) Urine Protein (Neg-Trace) mg/dL Urine Glucose (UA) (Negative) mg/dL Urine Ketones (Negative) mg/dL Urine Blood (Negative) Urine Nitrite (Negative) Ur Leukocyte Esterase (Negative) Urine RBC (0-2) /HPF Urine WBC (0-5) /HPF Ur Squamous Epith Cells (0-2) /HPF Urine Bacteria (None Seen) Hyaline Casts (0-2) /LPF Influenza Type A (PCR) NEGATIVE (Negative) Influenza Type B (PCR) NEGATIVE (Negative) RSV RNA Qual (PCR) NEGATIVE (Negative) SARS-CoV-2 RNA (RT-PCR) NEGATIVE (Negative) 08/04/24 Range/Units 15:48 WBC (4.8-10.8) X10*3/uL RBC (4.20-5.50) X10*6/uL Hgb (12.0-16.0) g/dl Hct (37.0-47.0) % MCV (80.0-98.0) fL MCH (27.0-33.0) pg MCHC (31.0-35.0) g/dl RDW (11.0-16.0) % Plt Count (160-400) X10*3/uL MPV (9.4-12.3) fL Immature Gran % (Auto) (0.0-0.4) % Neut % (Auto) (45-73) % Lymph % (Auto) (20-40) % Republic % (Auto) (2-11) % Eos % (Auto) (0-4) % Baso % (Auto) (0-2) % Lymph # (Auto) (1.2-4.9) X10*3/uL Republic # (Auto) (0.1-1.2) X10*3/uL Eos # (Auto) (0.0-0.4) X10*3/uL Baso # (Auto) (0.0-0.2) X10*3/uL Abs Immat Gran (auto) (0.00-0.03) X10*3/uL Absolute Neuts (auto) (2.0-8.3) x10*3/uL Absolute Nucleated RBC (0.0-0.012) X10*3/uL Nucleated RBC % (auto) (0.0-0.2) /100WBC Sodium (135-145) mmol/L Potassium (3.3-5.1) mmol/L Chloride (96-108) mmol/L Carbon Dioxide (22-29) mmol/L Anion Gap (12-20) BUN (9-16) mg/dL Creatinine (0.5-1.4) mg/dL Estim Creat Clear Calc Estimated GFR Random Glucose (60-115) mg/dL Lactic Acid (0.5-2.0) mmol/L Calcium (8.4-10.2) mg/dL Magnesium (1.6-2.6) mg/dL Total Bilirubin (0.0-1.0) mg/dL AST (5-31) U/L ALT (0-31) U/L Alkaline Phosphatase (39-117) U/L Troponin I High Sens (<3.5-17.0) ng/L B-Natriuretic Peptide (<100) pg/mL Total Protein (6.5-8.0) g/dL Albumin (3.5-5.0) g/dL Lipase (8-78) U/L Urine Color Dark Yellow Urine Appearance Cloudy Urine pH 5.5 (5.0-9.0) Ur Specific [place] >= 1.030 H (1.005-1.025) Urine Protein 100 (2+) H (Neg-Trace) mg/dL Urine Glucose (UA) Negative (Negative) mg/dL Urine Ketones 15 (Negative) mg/dL Urine Blood Small (1+) H (Negative) Urine Nitrite Positive H (Negative) Ur Leukocyte Esterase Moderate (2+) H (Negative) Urine RBC 3-5 H (0-2) /HPF Urine WBC >50 H (0-5) /HPF Ur Squamous Epith Cells 3-5 (0-2) /HPF Urine Bacteria Trace (None Seen) Hyaline Casts 11-20 (0-2) /LPF Influenza Type A (PCR) (Negative) Influenza Type B (PCR) (Negative) RSV RNA Qual (PCR) (Negative) SARS-CoV-2 RNA (RT-PCR) (Negative) Independent Interpretation I performed an independent interpretation of an: EKG Interpretation: EKG at 11:10 a.m., sinus rhythm with PACs at a ventricular rate of 81 beats per minute, no ST elevation or depression. Repeat EKG performed at 1815 - normal sinus rhythm at a ventricular rate of 91 beats per minute, AK interval 114, prolonged QT noted at 511. Radiology Impression Discussion of test interpretation with radiology: I have reviewed the radiologist's reading. Radiologist Impression: CT/CT abdomen pelvis wo IV con IMPRESSION: Acute to subacute superior endplate compression deformity L2 vertebra with] millimeter of retropulsion upon central canal. Cholelithiasis. Nonobstructing nephrolithiasis, left kidney. Fat-containing umbilical hernia. Hiatal hernia. Calcified mitral valve. Discussed with the ordering physician in the emergency department on 08/04/2024 at 1:38 PM Fleischner guidelines were followed. Electronically signed by: Abdirashid Villarreal MD 08/04/2024 02:00 PM EDT Dictated By: Abdirashid Caldera External Record Review External record reviewed: Primary care record Discharge Plan Discharge Clinical Impression: Acute UTI, Acute hypokalemia, Weakness Patient Disposition: Still a Patient Interventions: Admission Worksheet (ED) Last Done: 08/04/24 23:44 Discharge Date/Time: 08/05/24 01:00
[2024-08-04 11:58] LABS: MANUAL DIFF FLAG NO
[2024-08-04 12:11] LABS: Basophils Percent Auto 0.2 % (0-2); Eosinophils Percent Auto 0.1 % (0-4); Hematocrit 41.9 % (37.0-47.0); Hemoglobin 14.7 g/dl (12.0-16.0); Imm Gran Pct Auto 0.6 % (0.0-0.4); Lymphocytes Absolute Auto 2.4 X10*3/uL (1.2-4.9); Lymphocytes Percent Auto 13.5 % (20-40); Mean Corpuscular HGB Conc 35.1 g/dl (31.0-35.0); Mean Corpuscular Hemoglobin 33.2 pg (27.0-33.0); Mean Corpuscular Volume 94.6 fL (80.0-98.0); Mean Platelet Volume 12.8 fL (9.4-12.3); Monocytes Absolute Auto 1.2 X10*3/uL (0.1-1.2); Monocytes Percent Auto 6.8 % (2-11); Neutrophils Percent Auto 78.8 % (45-73); Platelet Count 262 X10*3/uL (160-400); Red Blood Count 4.43 X10*6/uL (4.20-5.50); Red Cell Distribution Width 13.5 % (11.0-16.0); White Blood Count 17.7 X10*3/uL (4.8-10.8)
[2024-08-04 12:18] LABS: Alanine Aminotransferase 8 U/L (0-31); Alkaline Phosphatase 93 U/L (39-117); Anion Gap 16 (12-20); Aspartate Amino Transferase 26 U/L (5-31); Bilirubin Total 0.8 mg/dL (0.0-1.0); Blood Urea Nitrogen 26 mg/dL (9-16); Calcium 10.2 mg/dL (8.4-10.2); Carbon Dioxide 30 mmol/L (22-29); Chloride 100 mmol/L (96-108); Creatinine Clr Calc Pharmacy 45.1; Estimated Glomerular Filt Rate > 60; Glucose Random 174 mg/dL (60-115); Magnesium 1.9 mg/dL (1.6-2.6); Potassium 2.8 mmol/L (3.3-5.1); Sodium 143 mmol/L (135-145); Total Protein 7.9 g/dL (6.5-8.0)
[2024-08-04 12:23] LABS: Troponin-I High Sensitivity 34.2 ng/L (<3.5-17.0)
--- NOTE | 2024-08-04 12:30 | PHA.MEDREC ---
Pharmacy Consult ? Medication Reconciliation Pharmacy has completed the medication reconciliation. LIST RECEIVED FROM [facility] WHICH MATCHED CLAIM HX.
[2024-08-04 12:38] LABS: Influenza A PCR NEGATIVE (Negative); Influenza B PCR NEGATIVE (Negative); Resp Syncy Virus RNA Qual PCR NEGATIVE (Negative); SARS COV2 PCR INHOUSE NEGATIVE (Negative)
[2024-08-04 14:08] LABS: Lactic Acid 1.5 mmol/L (0.5-2.0)
[2024-08-04 16:03] LABS: Appearance Urine Cloudy; Color Urine Dark Yellow; Glucose Urine UA Negative (Negative); Leukocyte Esterase Urine Moderate (2+) (Negative); Nitrite Urine Positive (Negative); PH 5.5 (5.0-9.0); Specific Gravity - Urine >= 1.030 (1.005-1.025); UMIC TRIGGER UACC YES; Urine Blood Small (1+) (Negative); Urine Ketones 15 mg/dL (Negative); Urine Protein 100 (2+) mg/dL (Neg-Trace)
[2024-08-04 16:11] LABS: Troponin-I High Sensitivity 32.2 ng/L (<3.5-17.0)
[2024-08-04 16:16] LABS: Bacteria Urine Trace (None Seen); UACC Culture Trigger YES; WBC Urine >50 /HPF (0-5)
[2024-08-04] MEDS: Potassium Chloride ER 20 MEQ TAB.ER.PRT 40 MEQ PO (16:26)
[2024-08-04] MEDS: cefTRIAXone sodium 1 GM VIAL IVPUSH (16:28)
[2024-08-04 18:01] LABS: B Type Natriuretic Peptide 57 pg/mL (<100)
--- NOTE | 2024-08-04 18:04 | PC.NURSE ---
Arrived via EMS with complaints of epigastric pain. Reports feeling like she wants to throw up. Son at bedside states his mom has been trying to force herself to throw up. VSS, patient mostly Maori speaking. 20g iv placed in left AC.
--- NOTE | 2024-08-04 18:17 | ECG_ITS ---
Test Reason : chest pain Blood Pressure : / mmHG Vent. Rate : 091 BPM Atrial Rate : 091 BPM P-R Int : 114 ms QRS Dur : 084 ms QT Int : 416 ms P-R-T Axes : 035 -05 040 degrees QTc Int : 511 ms Normal sinus rhythm Nonspecific ST abnormality Prolonged QT Abnormal ECG When compared with ECG of 04-AUG-2024 11:10, Aberrant conduction is no longer Present Referred By: Sharmila Cagle Electronically Signed By:ABBY GRIMM
--- NOTE | 2024-08-04 19:42 | PC.NURSE ---
Took over care from Samson Campbell, pt removed Iv before my shift, pt sleeping at this time, provider aware of Iv being removed.
[2024-08-04] MEDS: Doxycycline Monohydrate 100 MG CAPSULE PO (19:56)
[2024-08-04] MEDS: Pantoprazole Sodium 40 MG/10 ML VIAL IVPUSH (21:14)
[2024-08-04] MEDS: Prochlorperazine Edisylate 10 MG/2 ML VIAL IVPUSH (21:14)
[2024-08-04] MEDS: Morphine Sulfate 2 MG/ML CARTRIDGE IVPUSH (21:14)
[2024-08-04] MEDS: 0.9 % Sodium Chloride 500 ML IV (21:24)
--- NOTE | 2024-08-04 21:28 | P.HPHOSP_ITS ---
History of Present Illness Date of Service: 08/04/24 Attending physician on admission: Josey Peñaloza Chief Complaint: Epigastric pain Elisa Weaver is 83 years old with past medical history significant hyperlipidemia, hypertension, CVA, CAD, dementia and cholelithiasis who was brought to the emergency department due to sudden onset of severe epigastric pain associated with nausea and vomiting. Patient stated that the pain radiate to the chest. She denied any shortness on breath, cough, fever, chills, dizziness or palpitations. She did not report any acute urinary symptoms. Per chart review: Patient had multiple visits to the emergency department with similar symptoms. She has been evaluated in the past with surgery service for gallstones. In the ED, she was found to have normal vital signs. Blood workup was remarkable for leukocytosis of 17.7. Hemoglobin and platelets are. There is marked hypokalemia of 2.8. No other significant electrolyte imbalances. CO2 is 30, BUN is 26 and creatinine 0.76. LFTs are normal. Lipase was obtained. Troponin is 34.2 --> 32.2. Urinalysis consistent with urinary tract infection. COVID-19, influenza and RSV are negative. Abdomen pelvis CT scan without contrast showed acute to subacute compression fracture of L2 with retropulsion upon central cannula, cholelithiasis, nonobstructive nephrolithiasis , umbilical hernia and hiatal hernia. Review of Systems 2 Review of Systems: All 12 systems were reviewed and normal except as noted in HPI. [facility] Medical History (Updated 08/04/24 @ 22:11 by Josey Peñaloza MD) Nausea & vomiting Gallstones Abnormal nuclear stress test HLD (hyperlipidemia) HTN (hypertension) CVA, old, disturbances of vision (~09/2019) NSTEMI (non-ST elevated myocardial infarction) Dementia Coronary artery disease Family History Father No problems noted. Mother No problems noted. 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 Meds Allergies Allergy/AdvReac Type Severity Reaction Status Date / Time No Known Allergies Allergy Unknown UNKNOWN Verified 08/04/24 10:47 [NO KNOWN ALLERGIES] Active Medications: Current Medications Heparin Sodium (Porcine) (Heparin Sodium,Porcine 5,000 Unit/Ml Vial) 5,000 unit SUBCUT Q12H TAL Sodium Chloride (Ns) 500 mls @ 500 mls/hr IV .Q1H ONE Stop: 08/04/24 22:21 Last Admin: 08/04/24 21:24 Dose: 500 mls/hr Lactated Ringer's (Lr) 1,000 mls @ 100 mls/hr IVCONT .Q10H TAL Melatonin (Melatonin 3 Mg Tablet) 6 mg PO BEDTIME PRN PRN Reason: Insomnia Metoclopramide HCl (Metoclopramide Hcl 10 Mg/2 Ml Vial) 5 mg IVPUSH Q8H TAL Sodium Chloride (0.9 % Sodium Chloride Flush 3 Ml Syringe) 3 ml IVFLUSH QSHIFT TAL Home Medications ?Medication ?Instructions ?Recorded ?Confirmed ?Last Taken ?Type amitriptyline 10 mg tablet 10 mg PO BEDTIME 08/02/20 08/04/24 Unknown History albuterol sulfate 90 mcg/actuation 2 puff PO Q4H PRN Wheezing 06/27/21 08/04/24 Unknown History aerosol inhaler mirtazapine 30 mg tablet 1 tab PO BEDTIME 06/27/21 08/04/24 Unknown History polyethylene glycol 3350 17 17 g PO DAILY PRN Constipation 06/27/21 08/04/24 Unknown History gram/dose oral powder sertraline 25 mg tablet 1 tab PO DAILY 06/27/21 08/04/24 Unknown History clopidogrel 75 mg tablet 1 tab PO DAILY 09/02/22 08/04/24 Unknown History pantoprazole 40 mg tablet,delayed 1 tab PO BID@0630,1630 09/02/22 08/04/24 Unknown History release calcium carbonate 500 mg-vitamin 1 tab PO BID 07/23/24 08/04/24 Unknown History D3 10 mcg (400 unit) tablet (Oyster Shell Calcium-Vitamin D3) melatonin 5 mg tablet 5 mg PO BEDTIME PRN insomnia 07/23/24 08/04/24 Unknown History acetaminophen 500 mg tablet 500 mg PO Q6H PRN Fever Or Pain 08/04/24 08/04/24 Unknown History Physical Exam 2 Vital Signs and Narrative: Vital Signs: Last Vital Signs Temp 98.3 F 08/04/24 12:18 Pulse 93 08/04/24 19:59 Resp 18 08/04/24 19:59 BP 112/62 08/04/24 20:00 Pulse Ox 95 08/04/24 19:59 O2 Del Method Room Air 08/04/24 19:59 BMI result Body Mass Index 19.9 Constitutional - Awake and Alert.. Looks in distress due to severe epigastric pain. HEENT - PERRL, EOMI. Normal sclerae. Dry oral mucosa. Heart - S1S2, RRR, No murmurs. Lungs - Normal lung expansion, Normal respiratory effort, No respiratory distress, CTA bilaterally Abdomen- Nondistended, increased bowel sounds, epigastric tenderness with some guarding. No rebound. Extremities - no calf tenderness bilaterally, no swelling Musculoskeletal - Normal inspection, normal ROM Skin - Warm/Dry Neurological - Alert & oriented x3. No focal weakness. Normal speech. Psychological - Appropriate affect Results Labs 08/04/24 11:54 08/04/24 11:54 Labs: Laboratory Results - last 24 hr 08/04/24 08/04/24 08/04/24 11:54 13:50 15:39 MCV 94.6 MCH 33.2 H MCHC 35.1 H RDW 13.5 Plt Count 262 MPV 12.8 H Immature Gran % (Auto) 0.6 H Neut % (Auto) 78.8 H Lymph % (Auto) 13.5 L [place] % (Auto) 6.8 Eos % (Auto) 0.1 Baso % (Auto) 0.2 Lymph # (Auto) 2.4 [place] # (Auto) 1.2 Eos # (Auto) 0.0 Baso # (Auto) 0.0 Abs Immat Gran (auto) 0.10 H Absolute Neuts (auto) 14.0 H Absolute Nucleated RBC 0.000 Nucleated RBC % (auto) 0.0 Anion Gap 16 Estim Creat Clear Calc 45.1 Estimated GFR > 60 Random Glucose 174 H Lactic Acid 1.5 Calcium 10.2 Magnesium 1.9 Total Bilirubin 0.8 AST 26 ALT 8 Alkaline Phosphatase 93 Troponin I High Sens 34.2 H D 32.2 H B-Natriuretic Peptide 57 Total Protein 7.9 Albumin 4.0 Urine Color Urine Appearance Urine pH Ur Specific [place] Urine Protein Urine Glucose (UA) Urine Ketones Urine Blood Urine Nitrite Ur Leukocyte Esterase Urine RBC Urine WBC Ur Squamous Epith Cells Urine Bacteria Hyaline Casts Influenza Type A (PCR) NEGATIVE Influenza Type B (PCR) NEGATIVE RSV RNA Qual (PCR) NEGATIVE SARS-CoV-2 RNA (RT-PCR) NEGATIVE 08/04/24 15:48 MCV MCH MCHC RDW Plt Count MPV Immature Gran % (Auto) Neut % (Auto) Lymph % (Auto) [place] % (Auto) Eos % (Auto) Baso % (Auto) Lymph # (Auto) [place] # (Auto) Eos # (Auto) Baso # (Auto) Abs Immat Gran (auto) Absolute Neuts (auto) Absolute Nucleated RBC Nucleated RBC % (auto) Anion Gap Estim Creat Clear Calc Estimated GFR Random Glucose Lactic Acid Calcium Magnesium Total Bilirubin AST ALT Alkaline Phosphatase Troponin I High Sens B-Natriuretic Peptide Total Protein Albumin Urine Color Dark Yellow Urine Appearance Cloudy Urine pH 5.5 Ur Specific [place] >= 1.030 H Urine Protein 100 (2+) H Urine Glucose (UA) Negative Urine Ketones 15 Urine Blood Small (1+) H Urine Nitrite Positive H Ur Leukocyte Esterase Moderate (2+) H Urine RBC 3-5 H Urine WBC >50 H Ur Squamous Epith Cells 3-5 Urine Bacteria Trace Hyaline Casts 11-20 Influenza Type A (PCR) Influenza Type B (PCR) RSV RNA Qual (PCR) SARS-CoV-2 RNA (RT-PCR) Imaging Radiologist's Impressions: Impressions Chest X-Ray 08/04/24 11:17 IMPRESSION: -Patchy bibasilar opacities, query atelectasis versus pneumonia in the appropriate setting. -Ancillary findings as discussed. Electronically signed by: Oscar Harris MD 08/04/2024 12:31 PM EDT Abdomen/Pelvis CT 08/04/24 11:44 IMPRESSION: Acute to subacute superior endplate compression deformity L2 vertebra with] millimeter of retropulsion upon central canal. Cholelithiasis. Nonobstructing nephrolithiasis, left kidney. Fat-containing umbilical hernia. Hiatal hernia. Calcified mitral valve. Discussed with the ordering physician in the emergency department on 08/04/2024 at 1:38 PM Fleischner guidelines were followed. Electronically signed by: Abdirashid Villarreal MD 08/04/2024 02:00 PM EDT RP Assessment and Plan (1) Epigastric pain: Status: Acute (2) Acute UTI: Status: Acute (3) Acute hypokalemia: Status: Acute Plan Elisa Weaver is 83 y/o admitted with: * Epigastric pain, nausea and vomiting: Differential diagnosis: hiatal hernia, GERD, acute gastritis, biliary colic, acute cholecystitis. Multiple visits to ED same symptoms. Admit to hospitalist service. NPO. Start IV fluids. Start treatment with morphine for pain control, PPI and antiemetic therapy. Check lipase now. Gastrointestinal consult. * Hypokalemia, secondary to vomiting. Replete as needed. Recheck a level now. * Leukocytosis and elevated CO2 (contraction alkalosis), likely secondary to vomiting--> dehydration. Start IV fluids. * UTI. Continue ceftriaxone. Urine culture obtained -will follow results. * Left lung base patch groundglass on today's abd pelvic CT scan (this is chronic), previously described by radiology chest CT scan done on July 22, 2024 (mild diffuse chronic interstitial fibrotic change with a peripheral and basilar predominance. Mild associated traction bronchiectasis, most notably in the left lower lobe. Mild bronchial wall thickening). Patient does not have respiratory symptoms. * Hyperlipidemia. Continue atorvastatin when able. * CVA/CAD. Continue statin and Plavix when able. DVT prophylaxis: SCDs Code status: Full Patient will need hospitalization for at least 2 midnights for epigastric, nausea and vomiting evaluation and treatment with antiemetic therapy, pain control and IV fluids. Quality Stroke Does the patient have a stroke diagnosis?: No VTE Prior VTE?: No VTE Risk Level:: Medical - moderate - high VTE Device Contraindication: N/A - Device Ordered VTE Drug Contraindication: Treatment Not Indicated
--- NOTE | 2024-08-04 21:33 | PC.NURSE ---
Iv placed 22 in right hand, medicated per mar, repositioned for comfort.
[2024-08-04 21:47] LABS: Lipase 14 U/L (8-78)
[2024-08-04 22:55] LABS: Alanine Aminotransferase 8 U/L (0-31); Albumin Level 3.3 g/dL (3.5-5.0); Alkaline Phosphatase 78 U/L (39-117); Anion Gap 16 (12-20); Aspartate Amino Transferase 27 U/L (5-31); Bilirubin Total 0.4 mg/dL (0.0-1.0); Blood Urea Nitrogen 24 mg/dL (9-16); Calcium 9.5 mg/dL (8.4-10.2); Carbon Dioxide 26 mmol/L (22-29); Chloride 104 mmol/L (96-108); Creatinine Clr Calc Pharmacy 51.1; Estimated Glomerular Filt Rate > 60; Glucose Random 139 mg/dL (60-115); Potassium 2.7 mmol/L (3.3-5.1); Sodium 143 mmol/L (135-145); Total Protein 6.6 g/dL (6.5-8.0)
[2024-08-04] MEDS: Metoclopramide HCl 10 MG/2 ML VIAL 5 MG IVPUSH (22:58)
[2024-08-04] MEDS: Lactated Ringers 1,000 ML 100 ML IVCONT (22:58)
--- NOTE | 2024-08-04 23:00 | PC.NURSE ---
medicated per mar, pt sleeping at this time.
[2024-08-04] MEDS: Potassium Chloride/H20 10 MEQ/100 ML PIGGYBACK 100 MEQ IV (23:27)
--- NOTE | 2024-08-04 23:38 | PC.NURSE ---
medicated per mar.
--- NOTE | 2024-08-04 23:39 | PC.NURSE ---
Medicated per mar.
--- NOTE | 2024-08-04 23:49 | PC.NURSE ---
Replaced Iv to Right hand with 22g
[2024-08-05] VITALS (7 sets, daily range): BP systolic 121–161; BP diastolic 58–99; PULSE 65–84; RESP 14–20; TEMP 36.2–36.8; O2SAT 93–97; BMI 19.7
[2024-08-05] MEDS: cefTRIAXone sodium 1 GM VIAL IVPUSH (05:18)
[2024-08-05] MEDS: Metoclopramide HCl 10 MG/2 ML VIAL 5 MG IVPUSH ×3 (05:25→20:37)
--- NOTE | 2024-08-05 06:36 | PC.NURSE ---
0457-critical results of 1 bottle of blood culture draw preliminary with gram negative rods on gram stain, Hospitalist on duty acknowledged message also and new order to MAR for IVP Rocephin noted and administered. vss, Patient with no stated pain at that time, will continue to monitor.
--- NOTE | 2024-08-05 07:21 | P.CNGI_ITS ---
History of Present Illness Data of Consult Service Date: 08/05/24 Requesting physician: Josey Peñaloza Primary Care Provider: Stef Greer MD HPI Reason for consult: Epigastric pain, nausea vomiting Elisa Weaver is 83 years old with past medical history significant hyperlipidemia, hypertension, CVA, CAD, dementia and cholelithiasis who was brought to the emergency department due to sudden onset of severe epigastric pain associated with nausea and vomiting. Patient stated that the pain radiate to the chest. She denied any shortness on breath, cough, fever, chills, dizziness or palpitations. She did not report any acute urinary symptoms. Per chart review: Patient had multiple visits to the emergency department with similar symptoms. She has been evaluated in the past with surgery service for gallstones. 08/04/[address] SCAN SHOWED: Acute to subacute superior endplate compression deformity L2 vertebra with] millimeter of retropulsion upon central canal. Cholelithiasis. Nonobstructing nephrolithiasis, left kidney. Fat-containing umbilical hernia. Hiatal hernia. Calcified mitral valve. Review of Systems 2 Review of Systems: All 12 systems were reviewed and normal except as noted in HPI. [facility] Past Medical History Medical History (Updated 08/04/24 @ 22:11 by Josey Peñaloza MD) Nausea & vomiting Gallstones Abnormal nuclear stress test HLD (hyperlipidemia) HTN (hypertension) CVA, old, disturbances of vision (~09/2019) NSTEMI (non-ST elevated myocardial infarction) Dementia Coronary artery disease Family History Family History Father No problems noted. Mother No problems noted. 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 Meds Allergies Allergy/AdvReac Type Severity Reaction Status Date / Time No Known Allergies Allergy Unknown UNKNOWN Verified 08/04/24 10:47 [NO KNOWN ALLERGIES] Active Medications: Current Medications Ceftriaxone Sodium (Ceftriaxone Sodium 1 Gm Vial) 1 gm IVPUSH Q24H [facility] Last Admin: 08/05/24 05:18 Dose: 1 gm Heparin Sodium (Porcine) (Heparin Sodium,Porcine 5,000 Unit/Ml Vial) 5,000 unit SUBCUT Q12H [facility] Lactated Ringer's (Lr) 1,000 mls @ 100 mls/hr IVCONT .Q10H [facility] Last Admin: 08/04/24 22:58 Dose: 100 mls/hr Melatonin (Melatonin 3 Mg Tablet) 6 mg PO BEDTIME PRN PRN Reason: Insomnia Metoclopramide HCl (Metoclopramide Hcl 10 Mg/2 Ml Vial) 5 mg IVPUSH Q8H [facility] Last Admin: 08/05/24 05:25 Dose: 5 mg Morphine Sulfate (Morphine Sulfate 2 Mg/Ml Cartridge) 2 mg IVPUSH Q3H PRN; Protocol PRN Reason: Pain, Severe (Pain Scale 7-10) Sodium Chloride (0.9 % Sodium Chloride Flush 3 Ml Syringe) 3 ml IVFLUSH QSHIFT [facility] Last Admin: 08/05/24 01:08 Dose: Not Given Home Medications ?Medication ?Instructions ?Recorded ?Confirmed ?Last Taken ?Type amitriptyline 10 mg tablet 10 mg PO BEDTIME 08/02/20 08/04/24 Unknown History albuterol sulfate 90 mcg/actuation 2 puff PO Q4H PRN Wheezing 06/27/21 08/04/24 Unknown History aerosol inhaler mirtazapine 30 mg tablet 1 tab PO BEDTIME 06/27/21 08/04/24 Unknown History polyethylene glycol 3350 17 17 g PO DAILY PRN Constipation 06/27/21 08/04/24 Unknown History gram/dose oral powder sertraline 25 mg tablet 1 tab PO DAILY 06/27/21 08/04/24 Unknown History clopidogrel 75 mg tablet 1 tab PO DAILY 09/02/22 08/04/24 Unknown History pantoprazole 40 mg tablet,delayed 1 tab PO BID@0630,1630 09/02/22 08/04/24 Unknown History release calcium carbonate 500 mg-vitamin 1 tab PO BID 07/23/24 08/04/24 Unknown History D3 10 mcg (400 unit) tablet (Oyster Shell Calcium-Vitamin D3) melatonin 5 mg tablet 5 mg PO BEDTIME PRN insomnia 07/23/24 08/04/24 Unknown History acetaminophen 500 mg tablet 500 mg PO Q6H PRN Fever Or Pain 08/04/24 08/04/24 Unknown History Physical Exam 2 Vital Signs: Vital Signs: Last Vital Signs Temp 97.3 F 08/05/24 01:00 Pulse 76 08/05/24 01:00 Resp 17 08/05/24 01:00 BP 124/58 L 08/05/24 01:00 Pulse Ox 93 08/05/24 01:00 O2 Del Method Room Air 08/05/24 01:00 BMI result Body Mass Index 19.7 Appearance: Alert.? Oriented X3.? cvs: rrr, [id number] . res: clear to auscultation ,no rhonchii or wheezing abd: soft, has epigastric discomfort, bs present. ext pulses present , no cyanosis. neuro: axo3 , nonfocal. Results Labs 08/05/24 10:47 08/05/24 10:47 Labs: Short CBC 08/04/24 Range/Units 11:54 WBC 17.7 H (4.8-10.8) X10*3/uL Hgb 14.7 (12.0-16.0) g/dl Hct 41.9 (37.0-47.0) % Plt Count 262 (160-400) X10*3/uL BMP 08/04/24 08/04/24 11:54 22:26 Sodium 143 143 Potassium 2.8 L* D 2.7 L* Chloride 100 104 Carbon Dioxide 30 H 26 BUN 26 H 24 H Creatinine 0.76 0.67 Calcium 10.2 9.5 D Liver Function 08/04/24 08/04/24 Range/Units 11:54 22:26 Total Bilirubin 0.8 0.4 (0.0-1.0) mg/dL AST 26 27 (5-31) U/L ALT 8 8 (0-31) U/L Alkaline Phosphatase 93 78 (39-117) U/L Albumin 4.0 3.3 L (3.5-5.0) g/dL Urine 08/04/24 Range/Units 15:48 Urine Color Dark Yellow Urine Appearance Cloudy Urine pH 5.5 (5.0-9.0) Ur Specific [place] >= 1.030 H (1.005-1.025) Urine Protein 100 (2+) H (Neg-Trace) mg/dL Urine Glucose (UA) Negative (Negative) mg/dL Microbiology Microbiology Results: Microbiology 08/04/24 13:55 Blood - Venous Blood Culture - Preliminary Prelim: GNR Gram Stain only Assessment and Plan (1) Nausea & vomiting: Status: Acute (2) Epigastric pain: Status: Acute Plan Proceed with upper endoscopy for evaluation of recurrent upper abdominal pain nausea and vomiting. Procedures Date of Service Date of Service: 08/05/24
[2024-08-05] MEDS: Heparin Sodium,Porcine 5,000 UNIT/ML VIAL 5000 UNIT SUBCUT (09:22)
[2024-08-05] MEDS: Acetaminophen 325 MG TABLET 975 MG PO ×2 (09:22→20:38)
[2024-08-05] MEDS: Lactated Ringers 1,000 ML 100 ML IVCONT ×2 (09:22→20:35)
[2024-08-05] MEDS: Lidocaine 4 % Patch ADH..PATCH 1 PATCH TRANSDERMA (09:25)
[2024-08-05 11:02] LABS: Hematocrit 33.1 % (37.0-47.0); Hemoglobin 11.6 g/dl (12.0-16.0); Mean Corpuscular Hemoglobin 32.7 pg (27.0-33.0); Mean Corpuscular Volume 93.2 fL (80.0-98.0); PLT CLUMP 1; Red Blood Count 3.55 X10*6/uL (4.20-5.50); Red Cell Distribution Width 13.4 % (11.0-16.0)
[2024-08-05 11:03] LABS: WBC ABN SCTR FOR CBC 1
[2024-08-05 11:19] LABS: Alanine Aminotransferase 6 U/L (0-31); Albumin Level 3.1 g/dL (3.5-5.0); Alkaline Phosphatase 75 U/L (39-117); Anion Gap 15 (12-20); Aspartate Amino Transferase 28 U/L (5-31); Bilirubin Total 0.3 mg/dL (0.0-1.0); Blood Urea Nitrogen 19 mg/dL (9-16); Calcium 9.2 mg/dL (8.4-10.2); Carbon Dioxide 24 mmol/L (22-29); Chloride 106 mmol/L (96-108); Creatinine Clr Calc Pharmacy 60.5; Estimated Glomerular Filt Rate > 60; Glucose Random 104 mg/dL (60-115); Lipase 25 U/L (8-78); Potassium 3.6 mmol/L (3.3-5.1); Sodium 141 mmol/L (135-145); Total Protein 6.1 g/dL (6.5-8.0)
[2024-08-05 11:38] LABS: Band Neutrophils Percent 5 % (3-5); Lymphocytes Percent Manual 24 % (20-40); Monocytes Percent Manual 12 % (2-11); Neutrophils Percent Manual 59 % (45-73)
[2024-08-05 11:39] LABS: Platelet Estimate NORMAL (NORMAL); Platelet Morphology Comment NORMAL; RBC Morphology NORMAL; Toxic Vacuolation PRESENT
[2024-08-05 11:40] LABS: Lymphocytes Absolute Manual 3.8 X10*3/uL (1.2-4.9); Monocytes Absolute Manual 1.9 X10*3/uL (0.1-1.2); Neutrophils Absolute Manual 10.1 X10*3/uL (2.0-8.3); Platelet Count 186 X10*3/uL (160-400); White Blood Count 15.8 X10*3/uL (4.8-10.8)
--- NOTE | 2024-08-05 12:56 | P.PNIM_ITS ---
Subjective Subjective Date of Service: 08/05/24 Interval History: abd pain Review of Systems says some epigastric discomfort no vomiting Physical Exam 2 Vital Signs: Vital Signs: Last Vital Signs Temp 97.7 F 08/05/24 07:32 Pulse 75 08/05/24 07:32 Resp 16 08/05/24 07:32 BP 139/61 08/05/24 07:32 Pulse Ox 96 08/05/24 07:32 O2 Del Method Room Air 08/05/24 07:32 BMI result Body Mass Index 19.7 Appearance: Alert.? Oriented X3.? cvs: rrr, [id number] . res: clear to auscultation ,no rhonchii or wheezing abd: soft, has epigastric discomfort, bs present. ext pulses present , no cyanosis. neuro: axo3 , nonfocal. Objective Data Active Medications Acetaminophen (Acetaminophen 325 Mg Tablet) 975 mg PO Q6H [facility] Last Admin: 08/05/24 09:22 Dose: 975 mg Documented By: GUNNAR Ceftriaxone Sodium (Ceftriaxone Sodium 1 Gm Vial) 1 gm IVPUSH Q24H [facility] Last Admin: 08/05/24 05:18 Dose: 1 gm Documented By: NATHALIE Heparin Sodium (Porcine) (Heparin Sodium,Porcine 5,000 Unit/Ml Vial) 5,000 unit SUBCUT Q12H [facility] Last Admin: 08/05/24 09:22 Dose: 5,000 unit Documented By: GUNNAR Lactated Ringer's (Lr) 1,000 mls @ 100 mls/hr IVCONT .Q10H [facility] Last Admin: 08/05/24 09:22 Dose: 100 mls/hr Documented By: GUNNAR Lidocaine (Lidocaine 4 % Patch Adh..Patch) 1 patch TRANSDERMA DAILY [facility]; Protocol Last Admin: 08/05/24 09:25 Dose: 1 patch Documented By: GUNNAR Melatonin (Melatonin 3 Mg Tablet) 6 mg PO BEDTIME PRN PRN Reason: Insomnia Metoclopramide HCl (Metoclopramide Hcl 10 Mg/2 Ml Vial) 5 mg IVPUSH Q8H [facility] Last Admin: 08/05/24 05:25 Dose: 5 mg Documented By: NATHALIE Morphine Sulfate (Morphine Sulfate 2 Mg/Ml Cartridge) 2 mg IVPUSH Q3H PRN; Protocol PRN Reason: Pain, Severe (Pain Scale 7-10) Sodium Chloride (0.9 % Sodium Chloride Flush 3 Ml Syringe) 3 ml IVFLUSH QSHIFT [facility] Last Admin: 08/05/24 09:26 Dose: Not Given Documented By: GUNNAR Non-Admin Reason: IV Running Labs 08/05/24 10:47 08/05/24 10:47 Labs: Laboratory Results - last 24 hr 08/04/24 08/04/24 08/04/24 11:54 13:50 15:39 MCV MCH MCHC RDW Plt Count MPV Immature Gran % (Auto) Neut % (Auto) Lymph % (Auto) Luna % (Auto) Eos % (Auto) Baso % (Auto) Lymph # (Auto) Luna # (Auto) Eos # (Auto) Baso # (Auto) Abs Immat Gran (auto) Absolute Neuts (auto) Absolute Nucleated RBC Nucleated RBC % (auto) Neutrophils % (Manual) Band Neutrophils % Lymphocytes % (Manual) Monocytes % (Manual) Abs Neuts (Manual) Lymphocytes # (Manual) Monocytes # (Manual) Toxic Vacuolation Platelet Estimate Plt Morphology Comment RBC Morphology Anion Gap Estim Creat Clear Calc Estimated GFR Random Glucose Lactic Acid 1.5 Calcium Total Bilirubin AST ALT Alkaline Phosphatase Troponin I High Sens 32.2 H B-Natriuretic Peptide 57 Total Protein Albumin Lipase 14 Urine Color Urine Appearance Urine pH Ur Specific [place] Urine Protein Urine Glucose (UA) Urine Ketones Urine Blood Urine Nitrite Ur Leukocyte Esterase Urine RBC Urine WBC Ur Squamous Epith Cells Urine Bacteria Hyaline Casts 08/04/24 08/04/24 08/05/24 15:48 22:26 10:47 MCV 93.2 MCH MCHC RDW Plt Count MPV Immature Gran % (Auto) Neut % (Auto) Lymph % (Auto) Luna % (Auto) Eos % (Auto) Baso % (Auto) Lymph # (Auto) Luna # (Auto) Eos # (Auto) Baso # (Auto) Abs Immat Gran (auto) Absolute Neuts (auto) Absolute Nucleated RBC Nucleated RBC % (auto) Neutrophils % (Manual) Band Neutrophils % Lymphocytes % (Manual) Monocytes % (Manual) Abs Neuts (Manual) Lymphocytes # (Manual) Monocytes # (Manual) Toxic Vacuolation Platelet Estimate Plt Morphology Comment RBC Morphology Anion Gap 16 Estim Creat Clear Calc 51.1 Estimated GFR > 60 Random Glucose 139 H Lactic Acid Calcium 9.5 D Total Bilirubin 0.4 AST 27 ALT 8 Alkaline Phosphatase 78 Troponin I High Sens B-Natriuretic Peptide Total Protein 6.6 Albumin 3.3 L Lipase Urine Color Dark Yellow Urine Appearance Cloudy Urine pH 5.5 Ur Specific [place] >= 1.030 H Urine Protein 100 (2+) H Urine Glucose (UA) Negative Urine Ketones 15 Urine Blood Small (1+) H Urine Nitrite Positive H Ur Leukocyte Esterase Moderate (2+) H Urine RBC 3-5 H Urine WBC >50 H Ur Squamous Epith Cells 3-5 Urine Bacteria Trace Hyaline Casts 08-2408/05/24 08/05/24 08/05/24 10:47 10:47 10:47 MCV Cancelled MCH 32.7 Cancelled MCHC 35.0 Cancelled RDW 13.4 Plt Count MPV Immature Gran % (Auto) Neut % (Auto) Lymph % (Auto) Luna % (Auto) Eos % (Auto) Baso % (Auto) Lymph # (Auto) Luna # (Auto) Eos # (Auto) Baso # (Auto) Abs Immat Gran (auto) Absolute Neuts (auto) Absolute Nucleated RBC Nucleated RBC % (auto) Neutrophils % (Manual) Band Neutrophils % Lymphocytes % (Manual) Monocytes % (Manual) Abs Neuts (Manual) Lymphocytes # (Manual) Monocytes # (Manual) Toxic Vacuolation Platelet Estimate Plt Morphology Comment RBC Morphology Anion Gap Estim Creat Clear Calc Estimated GFR Random Glucose Lactic Acid Calcium Total Bilirubin AST ALT Alkaline Phosphatase Troponin I High Sens B-Natriuretic Peptide Total Protein Albumin Lipase Urine Color Urine Appearance Urine pH Ur Specific [place] Urine Protein Urine Glucose (UA) Urine Ketones Urine Blood Urine Nitrite Ur Leukocyte Esterase Urine RBC Urine WBC Ur Squamous Epith Cells Urine Bacteria Hyaline Casts 08/05/24 08/05/24 08/05/24 10:47 10:47 10:47 MCV MCH MCHC RDW Cancelled Plt Count 186 D Cancelled MPV 13.0 H Cancelled Immature Gran % (Auto) Cancelled Neut % (Auto) Cancelled Lymph % (Auto) Cancelled Luna % (Auto) Cancelled Eos % (Auto) Cancelled Baso % (Auto) Cancelled Lymph # (Auto) Cancelled Luna # (Auto) Cancelled Eos # (Auto) Cancelled Baso # (Auto) Cancelled Abs Immat Gran (auto) Cancelled Absolute Neuts (auto) Cancelled Absolute Nucleated RBC 0.000 Nucleated RBC % (auto) Neutrophils % (Manual) Band Neutrophils % Lymphocytes % (Manual) Monocytes % (Manual) Abs Neuts (Manual) Lymphocytes # (Manual) Monocytes # (Manual) Toxic Vacuolation Platelet Estimate Plt Morphology Comment RBC Morphology Anion Gap Estim Creat Clear Calc Estimated GFR Random Glucose Lactic Acid Calcium Total Bilirubin AST ALT Alkaline Phosphatase Troponin I High Sens B-Natriuretic Peptide Total Protein Albumin Lipase Urine Color Urine Appearance Urine pH Ur Specific [place] Urine Protein Urine Glucose (UA) Urine Ketones Urine Blood Urine Nitrite Ur Leukocyte Esterase Urine RBC Urine WBC Ur Squamous Epith Cells Urine Bacteria Hyaline Casts 08/05/24 08/05/24 10:47 10:47 MCV MCH MCHC RDW Plt Count MPV Immature Gran % (Auto) Neut % (Auto) Lymph % (Auto) Luna % (Auto) Eos % (Auto) Baso % (Auto) Lymph # (Auto) Luna # (Auto) Eos # (Auto) Baso # (Auto) Abs Immat Gran (auto) Absolute Neuts (auto) Absolute Nucleated RBC Cancelled Nucleated RBC % (auto) 0.0 Cancelled Neutrophils % (Manual) 59 Band Neutrophils % 5 Lymphocytes % (Manual) 24 Monocytes % (Manual) 12 H Abs Neuts (Manual) 10.1 H Lymphocytes # (Manual) 3.8 Monocytes # (Manual) 1.9 H Toxic Vacuolation PRESENT Platelet Estimate NORMAL Plt Morphology Comment NORMAL RBC Morphology NORMAL Anion Gap 15 Estim Creat Clear Calc 60.5 Estimated GFR > 60 Random Glucose 104 Lactic Acid Calcium 9.2 Total Bilirubin 0.3 AST 28 ALT 6 Alkaline Phosphatase 75 Troponin I High Sens B-Natriuretic Peptide Total Protein 6.1 L Albumin 3.1 L Lipase 25 Urine Color Urine Appearance Urine pH Ur Specific [place] Urine Protein Urine Glucose (UA) Urine Ketones Urine Blood Urine Nitrite Ur Leukocyte Esterase Urine RBC Urine WBC Ur Squamous Epith Cells Urine Bacteria Hyaline Casts Microbiology Microbiology Results: Microbiology 08/04/24 13:55 Blood Culture - Preliminary Blood - Venous Prelim: GNR Gram Stain only Assessment and Plan (1) Epigastric pain: Status: Acute Assessment and Plan: 83 y/o admitted with: Epigastric pain, nausea and vomiting: Differential diagnosis: hiatal hernia, GERD, acute gastritis, biliary colic, acute cholecystitis. Multiple visits to ED same symptoms. lft's and lipase normal add abd us has abd pain plan: NPO. Start IV fluids. Start treatment with morphine for pain control, PPI and antiemetic therapy. Gastrointestinal consult-possible egd. Hypokalemia, secondary to vomiting. repleted and resolved. Leukocytosis and elevated CO2 (contraction alkalosis), likely secondary to vomiting--> dehydration. Start IV fluids. UTI. blood culture 10/06 : gram negative rods, Urine culture pending Continue ceftriaxone. Left lung base patch groundglass on today's abd pelvic CT scan (this is chronic), previously described by radiology chest CT scan done on July 22, 2024 (mild diffuse chronic interstitial fibrotic change with a peripheral and basilar predominance. Mild associated traction bronchiectasis, most notably in the left lower lobe. Mild bronchial wall thickening). Patient does not have respiratory symptoms. Hyperlipidemia. Continue atorvastatin when able. CVA/CAD. Continue statin and Plavix when able. ongoing hospitlisation need for epigastric, nausea and vomiting evaluation and treatment with antiemetic therapy, pain control and IV fluids. Quality Stroke Does the patient have a stroke diagnosis?: No VTE Prior VTE?: No VTE Risk Level:: Medical - moderate - high VTE Device Contraindication: N/A - Device Ordered VTE Drug Contraindication: Treatment Not Indicated
--- NOTE | 2024-08-05 14:47 | P.CONAN_ITS ---
[facility] Active Problems Active Problems: All Active Problems Nausea & vomiting (Acute) Epigastric pain (Acute) Weakness (Acute) Acute hypokalemia (Acute) Acute UTI (Acute) Rotator cuff arthropathy of right shoulder (Acute) Metacarpal bone fracture (Acute) Ulnar shaft fracture (Acute) COVID-19 (Acute) Dementia (Acute) Gallstones (Acute) Abnormal nuclear stress test (Acute) Coronary artery disease (Acute) HLD (hyperlipidemia) (Acute) HTN (hypertension) (Acute) CVA, old, disturbances of vision (Acute ~09/2019) NSTEMI (non-ST elevated myocardial infarction) (Acute) Fracture of distal end of right radius with routine healing (Acute) Distal radius fracture, right (Acute) Past Medical History Medical History (Updated 08/04/24 @ 22:11 by Josey Peñaloza MD) Nausea & vomiting Gallstones Abnormal nuclear stress test HLD (hyperlipidemia) HTN (hypertension) CVA, old, disturbances of vision (~09/2019) NSTEMI (non-ST elevated myocardial infarction) Dementia Coronary artery disease Family History Family History Father No problems noted. Mother No problems noted. 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 Meds Allergies Allergy/AdvReac Type Severity Reaction Status Date / Time No Known Allergies Allergy Unknown UNKNOWN Verified 08/04/24 10:47 [NO KNOWN ALLERGIES] Active Medications: Current Medications Acetaminophen (Acetaminophen 325 Mg Tablet) 975 mg PO Q6H [facility] Last Admin: 08/05/24 13:09 Dose: Not Given Ceftriaxone Sodium (Ceftriaxone Sodium 1 Gm Vial) 1 gm IVPUSH Q24H [facility] Last Admin: 08/05/24 05:18 Dose: 1 gm Heparin Sodium (Porcine) (Heparin Sodium,Porcine 5,000 Unit/Ml Vial) 5,000 unit SUBCUT Q12H [facility] Last Admin: 08/05/24 09:22 Dose: 5,000 unit Lactated Ringer's (Lr) 1,000 mls @ 100 mls/hr IVCONT .Q10H [facility] Last Admin: 08/05/24 09:22 Dose: 100 mls/hr Lidocaine (Lidocaine 4 % Patch Adh..Patch) 1 patch TRANSDERMA DAILY [facility]; Protocol Last Admin: 08/05/24 09:25 Dose: 1 patch Melatonin (Melatonin 3 Mg Tablet) 6 mg PO BEDTIME PRN PRN Reason: Insomnia Metoclopramide HCl (Metoclopramide Hcl 10 Mg/2 Ml Vial) 5 mg IVPUSH Q8H [facility] Last Admin: 08/05/24 13:08 Dose: 5 mg Morphine Sulfate (Morphine Sulfate 2 Mg/Ml Cartridge) 2 mg IVPUSH Q3H PRN; Protocol PRN Reason: Pain, Severe (Pain Scale 7-10) Sodium Chloride (0.9 % Sodium Chloride Flush 3 Ml Syringe) 3 ml IVFLUSH QSHIFT [facility] Last Admin: 08/05/24 09:26 Dose: Not Given Home Medications ?Medication ?Instructions ?Recorded ?Confirmed ?Last Taken ?Type amitriptyline 10 mg tablet 10 mg PO BEDTIME 08/02/20 08/04/24 Unknown History albuterol sulfate 90 mcg/actuation 2 puff PO Q4H PRN Wheezing 06/27/21 08/04/24 Unknown History aerosol inhaler mirtazapine 30 mg tablet 1 tab PO BEDTIME 06/27/21 08/04/24 Unknown History polyethylene glycol 3350 17 17 g PO DAILY PRN Constipation 06/27/21 08/04/24 Unknown History gram/dose oral powder sertraline 25 mg tablet 1 tab PO DAILY 06/27/21 08/04/24 Unknown History clopidogrel 75 mg tablet 1 tab PO DAILY 09/02/22 08/04/24 Unknown History pantoprazole 40 mg tablet,delayed 1 tab PO BID@0630,1630 09/02/22 08/04/24 Unknown History release calcium carbonate 500 mg-vitamin 1 tab PO BID 07/23/24 08/04/24 Unknown History D3 10 mcg (400 unit) tablet (Oyster Shell Calcium-Vitamin D3) melatonin 5 mg tablet 5 mg PO BEDTIME PRN insomnia 07/23/24 08/04/24 Unknown History acetaminophen 500 mg tablet 500 mg PO Q6H PRN Fever Or Pain 08/04/24 08/04/24 Unknown History Exam Height,Weight and Vital Signs: Height 5 ft 3 in Weight 50.4 kg Last Vital Signs Temp 98.3 F 08/05/24 14:24 Pulse 74 08/05/24 14:24 Resp 16 08/05/24 14:24 BP 121/99 H 08/05/24 14:24 Pulse Ox 96 08/05/24 14:24 O2 Del Method Room Air 08/05/24 14:24 Pertinent Lab Results Pertinent Lab Results: Laboratory Tests 08/04/24 08/04/24 08/04/24 11:54 13:50 15:39 WBC 17.7 H RBC 4.43 Hgb 14.7 Hct 41.9 MCV 94.6 MCH 33.2 H MCHC 35.1 H RDW 13.5 Plt Count 262 MPV 12.8 H Immature Gran % (Auto) 0.6 H Neut % (Auto) 78.8 H Lymph % (Auto) 13.5 L Smith % (Auto) 6.8 Eos % (Auto) 0.1 Baso % (Auto) 0.2 Lymph # (Auto) 2.4 Smith # (Auto) 1.2 Eos # (Auto) 0.0 Baso # (Auto) 0.0 Abs Immat Gran (auto) 0.10 H Absolute Neuts (auto) 14.0 H Absolute Nucleated RBC 0.000 Nucleated RBC % (auto) 0.0 Neutrophils % (Manual) Band Neutrophils % Lymphocytes % (Manual) Monocytes % (Manual) Abs Neuts (Manual) Lymphocytes # (Manual) Monocytes # (Manual) Toxic Vacuolation Platelet Estimate Plt Morphology Comment RBC Morphology Sodium 143 Potassium 2.8 L* D Chloride 100 Carbon Dioxide 30 H Anion Gap 16 BUN 26 H Creatinine 0.76 Estim Creat Clear Calc 45.1 Estimated GFR > 60 Random Glucose 174 H Lactic Acid 1.5 Calcium 10.2 Magnesium 1.9 Total Bilirubin 0.8 AST 26 ALT 8 Alkaline Phosphatase 93 Troponin I High Sens 34.2 H D 32.2 H B-Natriuretic Peptide 57 Total Protein 7.9 Albumin 4.0 Lipase 14 Urine Color Urine Appearance Urine pH Ur Specific [place] Urine Protein Urine Glucose (UA) Urine Ketones Urine Blood Urine Nitrite Ur Leukocyte Esterase Urine RBC Urine WBC Ur Squamous Epith Cells Urine Bacteria Hyaline Casts Influenza Type A (PCR) NEGATIVE Influenza Type B (PCR) NEGATIVE RSV RNA Qual (PCR) NEGATIVE SARS-CoV-2 RNA (RT-PCR) NEGATIVE 08/04/24 08/04/24 08/05/24 15:48 22:26 10:47 WBC 15.8 H RBC Hgb Hct MCV MCH MCHC RDW Plt Count MPV Immature Gran % (Auto) Neut % (Auto) Lymph % (Auto) Smith % (Auto) Eos % (Auto) Baso % (Auto) Lymph # (Auto) Smith # (Auto) Eos # (Auto) Baso # (Auto) Abs Immat Gran (auto) Absolute Neuts (auto) Absolute Nucleated RBC Nucleated RBC % (auto) Neutrophils % (Manual) Band Neutrophils % Lymphocytes % (Manual) Monocytes % (Manual) Abs Neuts (Manual) Lymphocytes # (Manual) Monocytes # (Manual) Toxic Vacuolation Platelet Estimate Plt Morphology Comment RBC Morphology Sodium 143 Potassium 2.7 L* Chloride 104 Carbon Dioxide 26 Anion Gap 16 BUN 24 H Creatinine 0.67 Estim Creat Clear Calc 51.1 Estimated GFR > 60 Random Glucose 139 H Lactic Acid Calcium 9.5 D Magnesium Total Bilirubin 0.4 AST 27 ALT 8 Alkaline Phosphatase 78 Troponin I High Sens B-Natriuretic Peptide Total Protein 6.6 Albumin 3.3 L Lipase Urine Color Dark Yellow Urine Appearance Cloudy Urine pH 5.5 Ur Specific [place] >= 1.030 H Urine Protein 100 (2+) H Urine Glucose (UA) Negative Urine Ketones 15 Urine Blood Small (1+) H Urine Nitrite Positive H Ur Leukocyte Esterase Moderate (2+) H Urine RBC 3-5 H Urine WBC >50 H Ur Squamous Epith Cells 3-5 Urine Bacteria Trace Hyaline Casts 11-20 Influenza Type A (PCR) Influenza Type B (PCR) RSV RNA Qual (PCR) SARS-CoV-2 RNA (RT-PCR) 08/05/24 08/05/24 08/05/24 10:47 10:47 10:47 WBC Cancelled RBC 3.55 L Cancelled Hgb 11.6 L D Cancelled Hct 33.1 L D MCV MCH MCHC RDW Plt Count MPV Immature Gran % (Auto) Neut % (Auto) Lymph % (Auto) Smith % (Auto) Eos % (Auto) Baso % (Auto) Lymph # (Auto) Smith # (Auto) Eos # (Auto) Baso # (Auto) Abs Immat Gran (auto) Absolute Neuts (auto) Absolute Nucleated RBC Nucleated RBC % (auto) Neutrophils % (Manual) Band Neutrophils % Lymphocytes % (Manual) Monocytes % (Manual) Abs Neuts (Manual) Lymphocytes # (Manual) Monocytes # (Manual) Toxic Vacuolation Platelet Estimate Plt Morphology Comment RBC Morphology Sodium Potassium Chloride Carbon Dioxide Anion Gap BUN Creatinine Estim Creat Clear Calc Estimated GFR Random Glucose Lactic Acid Calcium Magnesium Total Bilirubin AST ALT Alkaline Phosphatase Troponin I High Sens B-Natriuretic Peptide Total Protein Albumin Lipase Urine Color Urine Appearance Urine pH Ur Specific [place] Urine Protein Urine Glucose (UA) Urine Ketones Urine Blood Urine Nitrite Ur Leukocyte Esterase Urine RBC Urine WBC Ur Squamous Epith Cells Urine Bacteria Hyaline Casts Influenza Type A (PCR) Influenza Type B (PCR) RSV RNA Qual (PCR) SARS-CoV-2 RNA (RT-PCR) 08/05/24 08/05/24 08/05/24 10:47 10:47 10:47 WBC RBC Hgb Hct Cancelled MCV 93.2 Cancelled MCH 32.7 Cancelled MCHC 35.0 RDW Plt Count MPV Immature Gran % (Auto) Neut % (Auto) Lymph % (Auto) Smith % (Auto) Eos % (Auto) Baso % (Auto) Lymph # (Auto) Smith # (Auto) Eos # (Auto) Baso # (Auto) Abs Immat Gran (auto) Absolute Neuts (auto) Absolute Nucleated RBC Nucleated RBC % (auto) Neutrophils % (Manual) Band Neutrophils % Lymphocytes % (Manual) Monocytes % (Manual) Abs Neuts (Manual) Lymphocytes # (Manual) Monocytes # (Manual) Toxic Vacuolation Platelet Estimate Plt Morphology Comment RBC Morphology Sodium Potassium Chloride Carbon Dioxide Anion Gap BUN Creatinine Estim Creat Clear Calc Estimated GFR Random Glucose Lactic Acid Calcium Magnesium Total Bilirubin AST ALT Alkaline Phosphatase Troponin I High Sens B-Natriuretic Peptide Total Protein Albumin Lipase Urine Color Urine Appearance Urine pH Ur Specific [place] Urine Protein Urine Glucose (UA) Urine Ketones Urine Blood Urine Nitrite Ur Leukocyte Esterase Urine RBC Urine WBC Ur Squamous Epith Cells Urine Bacteria Hyaline Casts Influenza Type A (PCR) Influenza Type B (PCR) RSV RNA Qual (PCR) SARS-CoV-2 RNA (RT-PCR) 08/05/24 08/05/24 08/05/24 10:47 10:47 10:47 WBC RBC Hgb Hct MCV MCH MCHC Cancelled RDW 13.4 Cancelled Plt Count 186 D Cancelled MPV 13.0 H Immature Gran % (Auto) Neut % (Auto) Lymph % (Auto) Smith % (Auto) Eos % (Auto) Baso % (Auto) Lymph # (Auto) Smith # (Auto) Eos # (Auto) Baso # (Auto) Abs Immat Gran (auto) Absolute Neuts (auto) Absolute Nucleated RBC Nucleated RBC % (auto) Neutrophils % (Manual) Band Neutrophils % Lymphocytes % (Manual) Monocytes % (Manual) Abs Neuts (Manual) Lymphocytes # (Manual) Monocytes # (Manual) Toxic Vacuolation Platelet Estimate Plt Morphology Comment RBC Morphology Sodium Potassium Chloride Carbon Dioxide Anion Gap BUN Creatinine Estim Creat Clear Calc Estimated GFR Random Glucose Lactic Acid Calcium Magnesium Total Bilirubin AST ALT Alkaline Phosphatase Troponin I High Sens B-Natriuretic Peptide Total Protein Albumin Lipase Urine Color Urine Appearance Urine pH Ur Specific [place] Urine Protein Urine Glucose (UA) Urine Ketones Urine Blood Urine Nitrite Ur Leukocyte Esterase Urine RBC Urine WBC Ur Squamous Epith Cells Urine Bacteria Hyaline Casts Influenza Type A (PCR) Influenza Type B (PCR) RSV RNA Qual (PCR) SARS-CoV-2 RNA (RT-PCR) 08/05/24 08/05/24 08/05/24 10:47 10:47 10:47 WBC RBC Hgb Hct MCV MCH MCHC RDW Plt Count MPV Cancelled Immature Gran % (Auto) Cancelled Neut % (Auto) Cancelled Lymph % (Auto) Cancelled Smith % (Auto) Cancelled Eos % (Auto) Cancelled Baso % (Auto) Cancelled Lymph # (Auto) Cancelled Smith # (Auto) Cancelled Eos # (Auto) Cancelled Baso # (Auto) Cancelled Abs Immat Gran (auto) Cancelled Absolute Neuts (auto) Cancelled Absolute Nucleated RBC 0.000 Cancelled Nucleated RBC % (auto) 0.0 Cancelled Neutrophils % (Manual) 59 Band Neutrophils % 5 Lymphocytes % (Manual) 24 Monocytes % (Manual) 12 H Abs Neuts (Manual) 10.1 H Lymphocytes # (Manual) 3.8 Monocytes # (Manual) 1.9 H Toxic Vacuolation PRESENT Platelet Estimate NORMAL Plt Morphology Comment NORMAL RBC Morphology NORMAL Sodium 141 Potassium 3.6 D Chloride 106 Carbon Dioxide 24 Anion Gap 15 BUN 19 H Creatinine 0.56 Estim Creat Clear Calc 60.5 Estimated GFR > 60 Random Glucose 104 Lactic Acid Calcium 9.2 Magnesium Total Bilirubin 0.3 AST 28 ALT 6 Alkaline Phosphatase 75 Troponin I High Sens B-Natriuretic Peptide Total Protein 6.1 L Albumin 3.1 L Lipase 25 Urine Color Urine Appearance Urine pH Ur Specific [place] Urine Protein Urine Glucose (UA) Urine Ketones Urine Blood Urine Nitrite Ur Leukocyte Esterase Urine RBC Urine WBC Ur Squamous Epith Cells Urine Bacteria Hyaline Casts Influenza Type A (PCR) Influenza Type B (PCR) RSV RNA Qual (PCR) SARS-CoV-2 RNA (RT-PCR) Airway Mallampati Class: II (edentulous) TM Dist: >3cm Neck ROM: Full Heart: rrr Lungs: cta Assessment and Plan Assessment Anesthesia Assessment: Anesthesia Plan Discussed and Chart Reviewed Final Anesthetic Review Family History of Problems with Anesthesia: No History of Problems with Anesthesia: No NPO: Yes ASA Class: III and Emergency Final Preanesthetic Review: No Changes in Pt Med Stat, Meds/Allgs Chart Reviewed and Consent Obtained/Reviewed Patient Risk: Intermediate Procedure Risk: Intermediate Anesthetic Plan Anesthetic Plan: MAC: Disposition: Standard PACU
--- NOTE | 2024-08-05 15:11 | P.OP_ITS ---
Operative Note Operative Note Date of Service: 08/05/24 Narrative: FLEXIBLE TRANSORAL UPPER GASTROINTESTINAL ENDOSCOPY WITH BIOPSIES AND ESOPHAGEAL BRUSHINGS Pre-op diagnosis: Epigastric pain, Nausea and vomiting Post-op diagnosis: Severe erosive esophagitis, hiatal hernia, multiple small non-bleeding gastric ulcer, Endoscopist:? Shannon Aragon MD Anesthesia:?MAC UPPER ENDOSCOPY Consent: Indications for the procedure and potential complications of bleeding, perforation, reaction to medications and missed diagnosis were discussed with the patient's son, Robby, over the phone with the help of [facility] bilingual interpreter and informed consent was obtained. Instrument: Olympus GIF H 190 mid size upper endoscope Monitoring: Vital signs and clinical assessment, continuous EKG monitoring, Pulse oximetry, Carbon Dioxide monitoring and blood pressure monitoring were done throughout the procedure. Procedure: The patient was placed in the left lateral decubitis position and pre-procedure medications were administered and a bite block was placed. The endoscope was inserted into the mouth and advanced under direct vision to the third part of duodenum. A careful inspection was made as the upper endoscope was withdrawn including a retroflexed examination of the proximal stomach; Findings and interventions are described below. Findings: Larynx: Normal Esophagus: GE junction at 30 cms, hiatal hernia 30 to 32 cms. Severe esophagitis involving the entire esophagus with white exudate - biopsies were obtained. Brushings were obtained from the esophagus to check for Ellie esophagitis Stomach: Three 3-5 mm non-bleeding ulcers in the gastric antrum - biopsies were obtained. Moderate diffuse gastric erythema - biopsies were obtained from the antrum. Grade 3 flap valve on retroflexed examination of the cardia. Duodenum: Normal bulb and descending duodenum Intervention: Biopsies as noted above Impression and Post Procedure Diagnosis: Endoscopy Findings: ESOPHAGUS: Small hiatal hernia with severe erosive esophagitis with possible ellie esophagitis - status post biopsies and brushings STOMACH: Three 3-5 mm non-bleeding ulcers in the gastric antrum - biopsies were obtained Plan: 1. IV PPI twice daily and switch to PO Omeprazole twice a day once pt is tolerating a PO diet. 2. Await results of biopsies and brushings. 3. [place] of clear liquid diet tonight and advance diet as tolerated.
--- NOTE | 2024-08-05 16:07 | MHC.CM.PN ---
CM ATTEMPTED TO MEET WITH PT WITH A PATIENT FINANCIAL SERVICES SPECIALIST PT SLIGHTLY CONFUSED CM ATTEMPTED TO CALL PTS SON, DANIELLE LEMON [phone] WITH THE DIGITAL ADVERTISING ANALYST, A VM WAS LEFT INFORMING HIM CM WOULD CALL BACK AGAIN TOMORROW CM ALSO ATTEMPTED TO CALL PTS GRANDDAUGHTER, EDUARDO, THERE WAS NO ANSWER
[2024-08-05] MEDS: Pantoprazole Sodium 40 MG/10 ML VIAL IVPUSH (16:20)
[2024-08-05] MEDS: 0.9 % Sodium Chloride Flush 3 ML SYRINGE IVFLUSH (20:37)
[2024-08-06] VITALS (7 sets, daily range): BP systolic 124–153; BP diastolic 58–88; PULSE 65–75; RESP 14–20; TEMP 36.1–36.9; O2SAT 93–96
[2024-08-06] MEDS: Metoclopramide HCl 10 MG/2 ML VIAL 5 MG IVPUSH ×3 (04:03→20:43)
[2024-08-06] MEDS: cefTRIAXone sodium 1 GM VIAL IVPUSH (04:04)
[2024-08-06] MEDS: Morphine Sulfate 2 MG/ML CARTRIDGE IVPUSH ×2 (04:06→20:45)
[2024-08-06] MEDS: Lactated Ringers 1,000 ML 100 ML IVCONT ×2 (04:12→16:16)
[2024-08-06] MEDS: Pantoprazole Sodium 40 MG/10 ML VIAL IVPUSH ×2 (05:47→16:21)
[2024-08-06] MEDS: 0.9 % Sodium Chloride Flush 3 ML SYRINGE IVFLUSH ×3 (07:33→20:47)
[2024-08-06] MEDS: Acetaminophen 325 MG TABLET 975 MG PO ×2 (07:34→16:17)
[2024-08-06] MEDS: Lidocaine 4 % Patch ADH..PATCH 1 PATCH TRANSDERMA (07:35)
[2024-08-06] MEDS: Mag&Al/Sim/Diphenhyd/Lidocaine 10 ML ORAL.SUSP PO (10:47)
--- NOTE | 2024-08-06 11:42 | HO.POSTANES ---
Post Anesthesia Evaluation Post Anesthesia Evaluation Date of Service: 08/06/24 Vital Signs: Vital Signs Temp Pulse Resp BP Pulse Ox O2 Del Method 08/06/24 07:17 97.3 F 65 16 148/64 H 93 Room Air 08/06/24 02:15 98.4 F 75 18 140/63 H 95 Room Air Anesthesia: TIVA Mental Status: Awake Pain Control: Satisfactory Nausea/Vomiting: None Hydration: Adequate Anesthesia-Related Issues: No Anes. Related Issues
--- NOTE | 2024-08-06 12:15 | HO.PM.IMPN ---
Subjective Subjective Date of Service: 08/06/24 Interval History: abd pain Review of Systems has abd pain still not tolerating diet Physical Exam Vital Signs: Vital Signs: Last Vital Signs Temp 97.3 F 08/06/24 07:17 Pulse 65 08/06/24 07:17 Resp 16 08/06/24 07:17 BP 148/64 H 08/06/24 07:17 Pulse Ox 93 08/06/24 07:17 O2 Del Method Room Air 08/06/24 07:17 BMI result Body Mass Index 19.7 Appearance: Alert.? Oriented X3.? cvs: rrr, [id number] . res: clear to auscultation ,no rhonchii or wheezing abd: soft, has epigastric discomfort, bs present. ext pulses present , no cyanosis. neuro: axo3 , nonfocal. Objective Data Active Medications Acetaminophen (Acetaminophen 325 Mg Tablet) 975 mg PO Q6H TAL Last Admin: 08/06/24 07:34 Dose: 975 mg Documented By: DENI Ceftriaxone Sodium (Ceftriaxone Sodium 1 Gm Vial) 1 gm IVPUSH Q24H TAL Last Admin: 08/06/24 04:04 Dose: 1 gm Documented By: OMEGA Lactated Ringer's (Lr) 1,000 mls @ 100 mls/hr IVCONT .Q10H TAL Last Admin: 08/06/24 04:12 Dose: 100 mls/hr Documented By: OMEGA Lidocaine (Lidocaine 4 % Patch Adh..Patch) 1 patch TRANSDERMA DAILY TAL; Protocol Last Admin: 08/06/24 07:35 Dose: 1 patch Documented By: DENI Lidocaine/Diphenhydr/Alum/Mg/Simeth (Mag&Al/Sim/Diphenhyd/Lidocaine 10 Ml Oral.Susp) 10 ml PO Q4H PRN; Protocol PRN Reason: Pain, Moderate(Pain Scale 4-6) Last Admin: 08/06/24 10:47 Dose: 10 ml Documented By: DENI Comments: c/o #4 pain with swallowing Melatonin (Melatonin 3 Mg Tablet) 6 mg PO BEDTIME PRN PRN Reason: Insomnia Metoclopramide HCl (Metoclopramide Hcl 10 Mg/2 Ml Vial) 5 mg IVPUSH Q8H TAL Last Admin: 08/06/24 04:03 Dose: 5 mg Documented By: OMEGA Morphine Sulfate (Morphine Sulfate 2 Mg/Ml Cartridge) 2 mg IVPUSH Q3H PRN; Protocol PRN Reason: Pain, Severe (Pain Scale 7-10) Last Admin: 08/06/24 04:06 Dose: 2 mg Documented By: OMEGA Naloxone HCl (Naloxone Hcl 0.4 Mg/Ml Vial) 0.04 mg IVPUSH Q5M PRN PRN Reason: Excessive sedation or RR < 8 Pantoprazole Sodium (Pantoprazole Sodium 40 Mg/10 Ml Vial) 40 mg IVPUSH BID@0630,1630 [facility] Last Admin: 08/06/24 05:47 Dose: 40 mg Documented By: OMEGA Sodium Chloride (0.9 % Sodium Chloride Flush 3 Ml Syringe) 3 ml IVFLUSH QSHIFT [facility] Last Admin: 08/06/24 07:33 Dose: 3 ml Documented By: BEIT Labs 08/05/24 10:47 08/05/24 10:47 Microbiology Microbiology Results: Microbiology 08/04/24 13:55 Blood Culture - Preliminary Blood - Venous Gram negative alejo 08/04/24 Unknown Urine Culture - Final Urine clean catch - Clean Catch Midstream Klebsiella pneumoniae 08/04/24 13:50 Blood Culture - Preliminary Blood - Venous No growth after 24 hours. Assessment and Plan (1) Epigastric pain: Status: Acute Assessment and Plan: 83 y/o admitted with: Epigastric pain, nausea and vomiting: Multiple visits to ED same symptoms. lft's and lipase normal add abd us egd yesterday- ESOPHAGUS: Small hiatal hernia with severe erosive esophagitis with possible aaron esophagitis - status post biopsies and brushings STOMACH: Three 3-5 mm non-bleeding ulcers in the gastric antrum - biopsies were obtained has abd pain/epigastric pain plan: clears . Start IV fluids. Start treatment with morphine for pain control, PPI and antiemetic therapy. Gastrointestinal consult-possible egd.Await results of biopsies and brushings. Hypokalemia, secondary to vomiting. repleted and resolved. Leukocytosis and elevated CO2 (contraction alkalosis), likely secondary to vomiting--> dehydration. ivf. UTI. blood culture 10/06 : gram negative rods, Urine culture pending Continue ceftriaxone. Left lung base patch groundglass on today's abd pelvic CT scan (this is chronic), previously described by radiology chest CT scan done on July 22, 2024 (mild diffuse chronic interstitial fibrotic change with a peripheral and basilar predominance. Mild associated traction bronchiectasis, most notably in the left lower lobe. Mild bronchial wall thickening). Patient does not have respiratory symptoms. Hyperlipidemia. Continue atorvastatin when able. CVA/CAD. Continue statin and Plavix when able. ongoing hospitlisation need gastric ulcer ,bacteremia , uti-treatment with antiemetic therapy, pain control and IV fluids, iv antibiotics. Quality Stroke Does the patient have a stroke diagnosis?: No VTE Prior VTE?: No VTE Risk Level:: Medical - moderate - high VTE Device Contraindication: N/A - Device Ordered VTE Drug Contraindication: Treatment Not Indicated
--- NOTE | 2024-08-06 12:41 | MHC.CM.PN ---
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
--- NOTE | 2024-08-06 13:22 | PC.NURSE ---
Patient was found on the floor by NURA Zelaya,SHOWER ATTENDANT responded to T room calling,patient was in the chair and was just repositioned recently by NURA Allen and NURA Villarreal for lunch.RN was transferring patient in room 357-1 from chair to bed at that time. Patient denied hitting head,no injury noted,assisted patient back to bed.Dr. Garnica ,charge nurse Alexa and nursing environmental services supervisor aware.Patient resting comfortably in bed at this time and has no complaints.
--- NOTE | 2024-08-06 14:04 | PC.NURSE ---
Dr. Garnica suggested a sitter for patient,Charge nurse Alexa notified,nursing field supervisor seed production notified.RN and ENVIRONMENTAL EDUCATION SPECIALIST Rushell checking patient very frequently in addition to bed alarm and Telesiter on
--- NOTE | 2024-08-07 01:13 | MHC.PIE ---
p; pt getting out of bed confused, naked and looking for her son. pt re directed numerous times with pt stting off bed alarms, chair alarms and camera numerous times i; dr wilder notified. now in room. concetta sumner e; will cont to [place]
[2024-08-07] MEDS: Haloperidol Lactate 5 MG/ML VIAL 2 MG IM (01:21)
[2024-08-07] MEDS: Pantoprazole Sodium 40 MG/10 ML VIAL IVPUSH ×2 (05:34→16:13)
[2024-08-07] MEDS: cefTRIAXone sodium 1 GM VIAL IVPUSH (05:34)
[2024-08-07] MEDS: Metoclopramide HCl 10 MG/2 ML VIAL 5 MG IVPUSH ×3 (05:34→20:41)
[2024-08-07 07:02] VITALS: BP 157/67; PULSE 76; RESP 16; TEMP 36.3; O2SAT 97
[2024-08-07] MEDS: Acetaminophen 325 MG TABLET 975 MG PO ×3 (08:34→20:41)
[2024-08-07] MEDS: 0.9 % Sodium Chloride Flush 3 ML SYRINGE IVFLUSH ×3 (08:34→20:42)
[2024-08-07] MEDS: Lidocaine 4 % Patch ADH..PATCH 1 PATCH TRANSDERMA (08:36)
[2024-08-07] MEDS: Mag&Al/Sim/Diphenhyd/Lidocaine 10 ML ORAL.SUSP PO ×2 (08:38→13:54)
--- NOTE | 2024-08-07 08:49 | PC.NURSE ---
Sara feels weak but able to move her arms and legs without difficulty
--- NOTE | 2024-08-07 12:44 | P.PNIM_ITS ---
Subjective Subjective Date of Service: 08/07/24 Interval History: gastric ulcers Review of Systems abd pain somewhat improving unable to tolerate diet Physical Exam 2 Vital Signs: Vital Signs: Last Vital Signs Temp 97.4 F 08/07/24 07:02 Pulse 76 08/07/24 07:02 Resp 16 08/07/24 07:02 BP 157/67 H 08/07/24 07:02 Pulse Ox 97 08/07/24 07:02 O2 Del Method Room Air 08/07/24 07:02 BMI result Body Mass Index 19.7 Appearance: Alert.? Oriented X3.? cvs: rrr, [id number] . res: clear to auscultation ,no rhonchii or wheezing abd: soft, has epigastric discomfort, bs present. ext pulses present , no cyanosis. neuro: axo3 , nonfocal. Objective Data Active Medications Acetaminophen (Acetaminophen 325 Mg Tablet) 975 mg PO Q6H TAL Last Admin: 08/07/24 08:34 Dose: 975 mg Documented By: DENI Ceftriaxone Sodium (Ceftriaxone Sodium 1 Gm Vial) 1 gm IVPUSH Q24H TAL Last Admin: 08/07/24 05:34 Dose: 1 gm Documented By: OMEGA Haloperidol Lactate (Haloperidol Lactate 5 Mg/Ml Vial) 2 mg IM ONCE PRN PRN Reason: agitation Last Admin: 08/07/24 01:21 EDT Dose: 2 mg Documented By: OMEGA Lidocaine (Lidocaine 4 % Patch Adh..Patch) 1 patch TRANSDERMA DAILY TAL; Protocol Last Admin: 08/07/24 08:36 Dose: 1 patch Documented By: DENI Lidocaine/Diphenhydr/Alum/Mg/Simeth (Mag&Al/Sim/Diphenhyd/Lidocaine 10 Ml Oral.Susp) 10 ml PO Q4H PRN; Protocol PRN Reason: Pain, Moderate(Pain Scale 4-6) Last Admin: 08/07/24 08:38 Dose: 10 ml Documented By: DENI Comments: #4 pain with swallowing Melatonin (Melatonin 3 Mg Tablet) 6 mg PO BEDTIME PRN PRN Reason: Insomnia Metoclopramide HCl (Metoclopramide Hcl 10 Mg/2 Ml Vial) 5 mg IVPUSH Q8H TAL Last Admin: 08/07/24 05:34 Dose: 5 mg Documented By: OMEGA Morphine Sulfate (Morphine Sulfate 2 Mg/Ml Cartridge) 2 mg IVPUSH Q3H PRN; Protocol PRN Reason: Pain, Severe (Pain Scale 7-10) Last Admin: 08/06/24 20:45 Dose: 2 mg Documented By: OMEGA Comments: pt anxious and restless yelling in pain. Naloxone HCl (Naloxone Hcl 0.4 Mg/Ml Vial) 0.04 mg IVPUSH Q5M PRN PRN Reason: Excessive sedation or RR < 8 Pantoprazole Sodium (Pantoprazole Sodium 40 Mg/10 Ml Vial) 40 mg IVPUSH BID@0630,1630 [facility] Last Admin: 08/07/24 05:34 Dose: 40 mg Documented By: OMEGA Sodium Chloride (0.9 % Sodium Chloride Flush 3 Ml Syringe) 3 ml IVFLUSH QSHIFT [facility] Last Admin: 08/07/24 08:34 Dose: 3 ml Documented By: BEIT Labs 08/05/24 10:47 08/05/24 10:47 Microbiology Microbiology Results: Microbiology 08/04/24 13:55 Blood Culture - Final Blood - Venous Klebsiella pneumoniae 08/04/24 13:50 Blood Culture - Preliminary Blood - Venous No growth after 48 hours. Assessment and Plan (1) Epigastric pain: Status: Acute Plan 83 y/o admitted with: Epigastric pain, nausea and vomiting: Multiple visits to ED same symptoms. lft's and lipase normal add [facility] [place] egd 08/05/24: ESOPHAGUS: Small hiatal hernia with severe erosive esophagitis with possible aaron esophagitis - status post biopsies and brushings STOMACH: Three 3-5 mm non-bleeding ulcers in the gastric antrum - biopsies were obtained has [facility] pain/epigastric pain plan: clears -still not taking food, pain control, PPI and antiemetic therapy. Gastrointestinal consult-possible egd.Await results of biopsies and brushings. Hypokalemia, secondary to vomiting. repleted and resolved. Leukocytosis and elevated CO2 (contraction alkalosis), likely secondary to vomiting--> dehydration. ivf. UTI. blood culture /2 :Klebsiella pneumonia , Urine culture -Klebsiella pneumonia Continue ceftriaxone. Left lung base patch groundglass on today's abd pelvic CT scan (this is chronic), previously described by radiology chest CT scan done on July 22, 2024 (mild diffuse chronic interstitial fibrotic change with a peripheral and basilar predominance. Mild associated traction bronchiectasis, most notably in the left lower lobe. Mild bronchial wall thickening). Patient does not have respiratory symptoms. Hyperlipidemia. Continue atorvastatin when able. CVA/CAD. Continue statin and Plavix when able. ongoing hospitlisation need gastric ulcer ,bacteremia , uti-treatment with antiemetic therapy, pain control and IV fluids, iv antibiotics. Quality Stroke Does the patient have a stroke diagnosis?: No VTE Prior VTE?: No VTE Risk Level:: Medical - moderate - high VTE Device Contraindication: N/A - Device Ordered VTE Drug Contraindication: Treatment Not Indicated
[2024-08-07 14:00] VITALS: O2SAT 96
[2024-08-07 15:16] VITALS: BP 134/61; PULSE 87; RESP 12; TEMP 36.3; O2SAT 98
[2024-08-07] MEDS: Sucralfate 1 GM TABLET PO ×2 (16:13→20:42)
[2024-08-07 19:13] VITALS: BP 133/63; PULSE 78; RESP 16; TEMP 36.4; O2SAT 97
[2024-08-08] MEDS: Acetaminophen 325 MG TABLET 975 MG PO ×3 (02:35→19:56)
[2024-08-08] MEDS: Morphine Sulfate 2 MG/ML CARTRIDGE IVPUSH ×2 (02:37→19:57)
[2024-08-08] MEDS: Pantoprazole Sodium 40 MG/10 ML VIAL IVPUSH (05:02)
[2024-08-08] MEDS: cefTRIAXone sodium 1 GM VIAL IVPUSH (05:02)
[2024-08-08] MEDS: Metoclopramide HCl 10 MG/2 ML VIAL 5 MG IVPUSH ×3 (05:02→19:55)
[2024-08-08 07:48] VITALS: BP 114/71; PULSE 78; RESP 16; TEMP 36.9; O2SAT 97
[2024-08-08] MEDS: Sucralfate 1 GM TABLET PO ×4 (08:09→19:55)
[2024-08-08] MEDS: Lidocaine 4 % Patch ADH..PATCH 1 PATCH TRANSDERMA (08:10)
[2024-08-08] MEDS: 0.9 % Sodium Chloride Flush 3 ML SYRINGE IVFLUSH ×3 (08:17→19:57)
[2024-08-08 09:25] VITALS: BP 114/71; PULSE 78; O2SAT 97
--- NOTE | 2024-08-08 13:02 | MHC.CM.PN ---
PT eval rec home with services. [facility] has been referred and are following. PO ABX are anticipated at discharge. DP Home with [facility]. Patients son will provide transportation home.
--- NOTE | 2024-08-08 13:24 | MHC.CLN ---
NUTRITION VISITED PATIENT WITH SITTER PRESENT. CONSULT FOR DECREASED PO INTAKE. PO INTAKE 0-50%. TAKES ENSURE AT HOME PER FAMILY. ORDERING ENSURE TID TO PROVIDE 1050 KCALS, 60 G PROTEIN. PATIENT WITH GASTRIC ULCERS AND REPORTS PAIN. RD TO MONITOR PO INTAKE AND DIET TOLERANCE.
--- NOTE | 2024-08-08 15:53 | HO.PM.IMPN ---
Subjective Subjective Date of Service: 08/08/24 Interval History: abd pain ,ecoli bacteremia Review of Systems seems comfortable no fevers Physical Exam Vital Signs: Vital Signs: Last Vital Signs Temp 98.4 F 08/08/24 07:48 Pulse 78 08/08/24 09:25 Resp 16 08/08/24 07:48 BP 114/71 08/08/24 09:25 Pulse Ox 97 08/08/24 09:25 O2 Del Method Room Air 08/08/24 07:48 BMI result Body Mass Index 19.7 Appearance: Alert.? Oriented X3.? cvs: rrr, [id number] . res: clear to auscultation ,no rhonchii or wheezing abd: soft, has epigastric discomfort, bs present. ext pulses present , no cyanosis. neuro: nonfocal. Objective Data Active Medications Acetaminophen (Acetaminophen 325 Mg Tablet) 975 mg PO Q6H [facility] Last Admin: 08/08/24 11:32 Dose: 975 mg Documented By: MONA Ceftriaxone Sodium (Ceftriaxone Sodium 1 Gm Vial) 1 gm IVPUSH Q24H TAL Last Admin: 08/08/24 05:02 Dose: 1 gm Documented By: KATIE Haloperidol Lactate (Haloperidol Lactate 5 Mg/Ml Vial) 2 mg IM ONCE PRN PRN Reason: agitation Last Admin: 08/07/24 01:21 EDT Dose: 2 mg Documented By: OMEGA Lidocaine (Lidocaine 4 % Patch Adh..Patch) 1 patch TRANSDERMA DAILY TAL; Protocol Last Admin: 08/08/24 08:10 Dose: 1 patch Documented By: MONA Lidocaine/Diphenhydr/Alum/Mg/Simeth (Mag&Al/Sim/Diphenhyd/Lidocaine 10 Ml Oral.Susp) 10 ml PO Q4H PRN; Protocol PRN Reason: Pain, Moderate(Pain Scale 4-6) Last Admin: 08/07/24 13:54 Dose: 10 ml Documented By: DENI Melatonin (Melatonin 3 Mg Tablet) 6 mg PO BEDTIME PRN PRN Reason: Insomnia Metoclopramide HCl (Metoclopramide Hcl 10 Mg/2 Ml Vial) 5 mg IVPUSH Q8H TAL Last Admin: 08/08/24 13:39 Dose: 5 mg Documented By: MATEO Morphine Sulfate (Morphine Sulfate 2 Mg/Ml Cartridge) 2 mg IVPUSH Q3H PRN; Protocol PRN Reason: Pain, Severe (Pain Scale 7-10) Last Admin: 08/08/24 02:37 Dose: 2 mg Documented By: KATIE Naloxone HCl (Naloxone Hcl 0.4 Mg/Ml Vial) 0.04 mg IVPUSH Q5M PRN PRN Reason: Excessive sedation or RR < 8 Omeprazole (Omeprazole 40 Mg Capsule.Dr) 40 mg PO BID@0630,1630 [facility] Sodium Chloride (0.9 % Sodium Chloride Flush 3 Ml Syringe) 3 ml IVFLUSH QSHIFT [facility] Last Admin: 08/08/24 08:17 Dose: 3 ml Documented By: MONA Sucralfate (Sucralfate 1 Gm Tablet) 1 gm PO QIDACHS [facility] Last Admin: 08/08/24 11:32 Dose: 1 gm Documented By: MONA Labs 08/05/24 10:47 08/05/24 10:47 Microbiology Microbiology Results: Microbiology 08/05/24 Unknown Fungal Identification - Preliminary Esophagus Yeast Assessment and Plan (1) Nausea & vomiting: Status: Acute (2) Acute UTI: Status: Acute Plan 83 y/o admitted with: Epigastric pain, nausea and vomiting: Multiple visits to ED same symptoms. lft's and lipase normal add abd us egd 08/05/24: ESOPHAGUS: Small hiatal hernia with severe erosive esophagitis with possible aaron esophagitis - status post biopsies and brushings STOMACH: Three 3-5 mm non-bleeding ulcers in the gastric antrum - biopsies were obtained has abd pain/epigastric pain plan: esophagus biopsy-growing yeast Gastrointestinal consult-possible egd.Await results of biopsies and brushings. diet advanced , pain control, PPI and antiemetic therapy,added fluconazole. Hypokalemia, secondary to vomiting. repleted and resolved. Leukocytosis and elevated CO2 (contraction alkalosis), likely secondary to vomiting--> dehydration. ivf. UTI. blood culture 10/06 :Klebsiella pneumonia , Urine culture -Klebsiella pneumonia Continue ceftriaxone. Id eval pending Left lung base patch groundglass on today's abd pelvic CT scan (this is chronic), previously described by radiology chest CT scan done on July 22, 2024 (mild diffuse chronic interstitial fibrotic change with a peripheral and basilar predominance. Mild associated traction bronchiectasis, most notably in the left lower lobe. Mild bronchial wall thickening). Patient does not have respiratory symptoms. Hyperlipidemia. Continue atorvastatin when able. CVA/CAD. Continue statin and Plavix when able. ongoing hospitlisation need gastric ulcer ,bacteremia , uti-treatment with antiemetic therapy, pain control and IV fluids, iv antibiotics. family is aware. Quality Stroke Does the patient have a stroke diagnosis?: No VTE Prior VTE?: No VTE Risk Level:: Medical - moderate - high VTE Device Contraindication: N/A - Device Ordered VTE Drug Contraindication: Treatment Not Indicated
[2024-08-08 15:55] VITALS: BP 124/64; PULSE 79; RESP 16; TEMP 36.8; O2SAT 91
[2024-08-08] MEDS: Omeprazole 40 MG CAPSULE.DR PO (16:40)
[2024-08-08] MEDS: Fluconazole 100 MG TABLET 200 MG PO (16:40)
[2024-08-08 19:10] VITALS: BP 145/76; PULSE 78; RESP 18; TEMP 37.1; O2SAT 97
[2024-08-09 03:50] VITALS: BP 120/62; PULSE 81; RESP 20; TEMP 36.4; O2SAT 96
[2024-08-09] MEDS: cefTRIAXone sodium 1 GM VIAL IVPUSH (04:31)
[2024-08-09] MEDS: Acetaminophen 325 MG TABLET 975 MG PO (05:20)
[2024-08-09] MEDS: Morphine Sulfate 2 MG/ML CARTRIDGE IVPUSH (05:20)
[2024-08-09] MEDS: Metoclopramide HCl 10 MG/2 ML VIAL 5 MG IVPUSH (05:21)
[2024-08-09] MEDS: Omeprazole 40 MG CAPSULE.DR PO (05:31)
[2024-08-09] MEDS: Sucralfate 1 GM TABLET PO ×2 (07:31→11:28)
[2024-08-09] MEDS: Lidocaine 4 % Patch ADH..PATCH 1 PATCH TRANSDERMA (07:31)
[2024-08-09] MEDS: 0.9 % Sodium Chloride Flush 3 ML SYRINGE IVFLUSH (07:36)
[2024-08-09 08:00] VITALS: BP 122/65; PULSE 81; RESP 14; TEMP 36.9; O2SAT 95
[2024-08-09] MEDS: oxyCODONE HCl Immed Release 5 MG TABLET 2.5 MG PO (10:25)
[2024-08-09] MEDS: Fluconazole 100 MG TABLET PO (10:26)
[2024-08-09] MEDS: Mag&Al/Sim/Diphenhyd/Lidocaine 10 ML ORAL.SUSP PO (10:26)
--- NOTE | 2024-08-09 10:42 | W.MHC.F2F ---
Service Date Service Date: 08/09/24 Encounter Date of encounter: 08/09/24 Encounter: Gastric ulcers, mild anemia, UTI, bacteremia. Reasons for Services Signs and symptoms assessed: Any new sign of bleeding, fever, urinary complaints Reason for senior living: medication management, medication treatment and teach disease management Reason for physical therapy: home safety and mobility, therapeutic exercises, restore joint function, gait/transfer training, assess need for DME, ADL training, energy conservation and other Homebound: Leaving the home is medically contraindicated at this time without the asist of a device and/or another person due th the listed conditions above and below. Reason homebound: weakness related to hospital stay Homebound supporting statement: Patient is generalized weak, has multiple comorbidities including new diagnosis of gastric ulcer, UTI, bacteremia-need help to go to appointments, lab draws, PT Certification: Based on the above findings, I certify that this patient is confined to the home and needs intermittent senior living care, physical therapy and/or speech therapy, or continues to need occupational therapy. The patient is under my care, and I have initiated the establishment of the plan of care. The patient will be followed by a physician who will periodically review the plan of care. Time Spent With Patient Time: Total time managing care of this patient today ____ minutes.
[2024-08-09] MEDS: cefuroxime axetiL 500 MG TABLET PO (11:28)
[2024-08-09 11:53] LABS: Hematocrit 35.6 % (37.0-47.0); Hemoglobin 12.5 g/dl (12.0-16.0)
--- NOTE | 2024-08-09 11:57 | PM.DS ---
DS: Providers Provider Date of Service: 08/09/24 Date of admission: 08/04/24 21:24 Date of discharge: 08/09/24 Primary care physician: Stef Greer MD Consults: 08/04/24 21:55 Consult to Gastroenterology Routine Consulting Provider: Shannon Aragon Reason for consultation: epigatric pain,N/V,multiple visits to ED Has provider been notified: No 08/07/24 12:48 Consult to Infectious Diseases Routine Consulting Provider: [facility] Reason for consultation: klebsiella bacteremia Has provider been notified: No Attending physician on discharge: Corrine Garnica Discharging clinician: Corrine Garnica DS: Diagnosis Discharge Diagnosis (1) Nausea & vomiting: Status: Acute (2) Acute UTI: Status: Acute DS: Summary Hospital Course Hospital Course: HPI: 83 years old with past medical history significant hyperlipidemia, hypertension, CVA, CAD, dementia and cholelithiasis who was brought to the emergency department due to sudden onset of severe epigastric pain associated with nausea and vomiting. Patient stated that the pain radiate to the chest. She denied any shortness on breath, cough, fever, chills, dizziness or palpitations. She did not report any acute urinary symptoms. Per chart review: Patient had multiple visits to the emergency department with similar symptoms. She has been evaluated in the past with surgery service for gallstones. In the ED, she was found to have normal vital signs. Blood workup was remarkable for leukocytosis of 17.7. Hemoglobin and platelets are. There is marked hypokalemia of 2.8. No other significant electrolyte imbalances. CO2 is 30, BUN is 26 and creatinine 0.76. LFTs are normal. Lipase was obtained. Troponin is 34.2 --> 32.2. Urinalysis consistent with urinary tract infection. COVID-19, influenza and RSV are negative. Abdomen pelvis CT scan without contrast showed acute to subacute compression fracture of L2 with retropulsion upon central cannula, cholelithiasis, nonobstructive nephrolithiasis , umbilical hernia and hiatal hernia. Hospital course: Patient was admitted to the hospital because of abdominal pain/epigastric pain: Found to have leukocytosis, abnormal UA, mild anemia: Patient was started on bowel rest, IV hydration, IV antibiotics, IV PPIs, urine culture blood cultures sent, lactic acid is normal. Patient was seen by GI and EGD was on found to have gastric ulcers, in addition esophageal brushing was done. Further course-patient seems to be improved significantly with above supportive measures, H&H stable, tolerating diet abdominal pain seems significantly better . Klebsiella uti/bactermia : leukocytosis improving,No fever. Urine culture grew Klebsiella as well as blood culture. received iv ceftriaxone -seems improved -complete ceftin course. Patient was subsequently switched to p.o. omeprazole 40 b.i.d., Ceftin 500 mg p.o. b.i.d. for 11 more days, fluconazole 200 mg daily for 12 more days. Hold Plavix for 1 week as well as Monitor CBC outpatient and subsequent use outpatient with PCP. Acute Hypokalemia repleted and resolved: Monitor BMP in 1 week. plan: Monitor CBC ,bmp 1 week. depending upon cbc -consider starting plavix after 1 week. switched to p.o. omeprazole 40 b.i.d., Ceftin 500 mg p.o. b.i.d. for 11 more days, fluconazole 200 mg daily for 12 more days. consider using ensure outpatient with pcp. Follow-up with Dr. Aragon's office. Above management discussed with the patient's family in detail length with manager printing present as well as the staff, her son understand and in agreement with the plan. Time spent 40 minute. Time Attestation Total time managing care of this patient today: 40 mintues. Discharge Coordination Time (in mins): 40 min Quality: Safe Use of Opioids Does Pt have an Active Cancer Diagnosis on the Problem List?: No Quality: Stroke Does the patient have a stroke diagnosis?: No Physical Exam Vital Signs: Vital Signs: Last Vital Signs Temp 98.5 F 08/09/24 08:00 Pulse 81 08/09/24 08:00 Resp 14 08/09/24 08:00 BP 122/65 08/09/24 08:00 Pulse Ox 95 08/09/24 08:00 O2 Del Method Room Air 08/09/24 08:00 BMI result Body Mass Index 19.7 Appearance: Alert.? Oriented to her baseline as per family. heent: no oral thrush . cvs: rrr, [id number] . res: clear to auscultation ,no rhonchii or wheezing abd: soft, has epigastric discomfort, bs present. ext pulses present , no cyanosis. neuro: nonfocal. DS: Data Data Completed and Pending Pending studies at discharge: Pending at discharge 08/05/24 15:06 Surgical [PTH] Routine Labs on day of discharge: Laboratory Results - last 24 hr 08/09/24 11:20 Hgb 12.5 Hct 35.6 L Preliminary micro results at discharge 08/05/24 Unknown Fungal Identification - Preliminary Esophagus Yeast 08/04/24 13:50 Blood Culture - Preliminary Blood - Venous No growth after 48 hours. Imaging Chest x-ray: Radiologist's impression: ITS Impressions Chest X-Ray 08/04/24 11:17 IMPRESSION: -Patchy bibasilar opacities, query atelectasis versus pneumonia in the appropriate setting. -Ancillary findings as discussed. Electronically signed by: Oscar Harris MD 08/04/2024 12:31 PM EDT RP Abdomen/Pelvis CT 08/04/24 11:44 IMPRESSION: Acute to subacute superior endplate compression deformity L2 vertebra with] millimeter of retropulsion upon central canal. Cholelithiasis. Nonobstructing nephrolithiasis, left kidney. Fat-containing umbilical hernia. Hiatal hernia. Calcified mitral valve. Discussed with the ordering physician in the emergency department on 08/04/2024 at 1:38 PM Fleischner guidelines were followed. Electronically signed by: Abdirashid Villarreal MD 08/04/2024 02:00 PM EDT RP Abdomen Ultrasound 08/05/24 09:56 IMPRESSION: Cholelithiasis. No gallbladder wall thickening, pericholecystic free fluid, or right upper quadrant tenderness during the examination to suggest acute cholecystitis. Electronically signed by: Vazquez Good MD 08/05/2024 11:25 AM EDT RP Head CT 08/06/24 15:41 IMPRESSION: No acute intracranial finding. Electronically signed by: Abner Yip MD 08/06/2024 05:30 PM EDT RP Discharge Plan Discharge Anticipated Discharge Date/Time: 08/09/24 10:32 Patient Disposition: Home Health Service Discharge Diagnosis: gastric ulcers , esophgeal canadiasis, uti , klebsiella bacteremia Referrals: Yuliya ALFRED [Outside] - 1 Week Shannon Aragon MD [Physician] - 1 Week Name,MD Stef [Primary Care Provider] - 1 Week Discharge Medications: New cefuroxime axetil 500 mg Tablet 500 mg PO Q12H Qty: 20 0RF potassium chloride 8 mEq tablet extended release 8 meq PO DAILY Qty: 4 0RF fluconazole 200 mg tablet 200 mg PO DAILY Qty: 12 0RF Continued atorvastatin 40 mg tablet 40 mg PO DAILY Qty: 90 3RF metoprolol succinate 25 mg tablet extended release 24 hr 25 mg PO DAILY Qty: 90 1RF mirtazapine 30 mg tablet 1 tab PO BEDTIME sertraline 25 mg tablet 1 tab PO DAILY polyethylene glycol 3350 17 gram/dose powder 17 g PO DAILY PRN (Reason: Constipation) albuterol sulfate 90 mcg/actuation HFA aerosol inhaler 2 puff PO Q4H PRN (Reason: Wheezing) calcium carbonate-vitamin D3 [Oyster Shell Calcium-Vit D3] 500 mg-10 mcg (400 unit) tablet 1 tab PO BID melatonin 5 mg tablet 5 mg PO BEDTIME PRN (Reason: insomnia) acetaminophen 500 mg Tablet 500 mg PO Q6H PRN (Reason: Fever Or Pain) pantoprazole 40 mg tablet,delayed release (DR/EC) 1 tab PO BID@0630,1630 Qty: 180 0RF amitriptyline 10 mg tablet 10 mg PO BEDTIME (DME) Wrist Brace Misc See Rx Instructions .MEDSUPPLY Qty: 1 0RF Rx Instructions: COMFORT FORM WRIST, RT, S Disp 1 REfill 0 Held clopidogrel 75 mg tablet 1 tab PO DAILY Hold Instructions: Resume on 08/16/24. Discharge Orders: Discharge Order (Routine); Ordered 08/09/24 Ordered By: Corrine Garnica Diet: Advance to usual diet Activity on Discharge: As tolerated Stand Alone Forms: Patient Portal Discharge page Print Language: Anguillan Other Ambulatory Orders: Basic Metabolic Panel (Routine) Timeframe: 1 Week Facility: [facility] - Location: Laboratory Ordered By: Corrine Garnica Complete Blood Count no Diff (Routine) Timeframe: 1 Week Facility: [facility] - Location: Laboratory Ordered By: Corrine Garnica Care Plan Goals: Patient was admitted to the hospital because of abdominal pain/epigastric pain: Found to have leukocytosis, abnormal UA, mild anemia: Patient was started on bowel rest, IV hydration, IV antibiotics, IV PPIs, urine culture blood cultures sent, lactic acid is normal. Patient was seen by GI and EGD was on found to have gastric ulcers, in addition esophageal brushing was done. Further course-patient seems to be improved significantly with above supportive measures, H&H stable, tolerating diet abdominal pain seems significantly better as well as leukocytosis improving,No fever. Urine culture grew Klebsiella as well as blood culture. Patient was subsequently switched to p.o. omeprazole 40 b.i.d., Ceftin 500 mg p.o. b.i.d. for 11 more days, fluconazole 200 mg daily for 12 more days. Hold Plavix for 1 week as well as Monitor CBC outpatient and subsequent use outpatient with PCP. Health Concerns: Monitor CBC ,bmp 1 week. depending upon cbc -consider starting plavix after 1 week. switched to p.o. omeprazole 40 b.i.d., Ceftin 500 mg p.o. b.i.d. for 11 more days, fluconazole 200 mg daily for 12 more days. Follow-up with Dr. Aragon's office. Plan of Treatment: As above. Assessment: As above.
--- NOTE | 2024-08-09 12:26 | MHC.CM.PN ---
IMM 08/09/24 Patient is discharged to home today. [facility] will provide SN, PT + OT. Family will provide transportation home.
== END 2024-08-09 13:14 | disposition home health service (06) | DRG 381 ==
LOC: HO.ED 19:09 → HO.EDOVER 21:47 → HO.S3 08-05 00:25
PROVIDERS: Internal Medicine Gastroenterology; Physician Assistant Medical; Admitting Provider Internal Medicine; Emergency Provider Emergency Medicine Emergency Medical Services; PCP Internal Medicine Geriatric Medicine; Visit Provider Internal Medicine
PROC: 0DJ08ZZ Inspection of Upper Intestinal Tract, Via Natural or Artificial Opening Endoscopic (ICD-10-PCS; CPT 43235; principal; 2024-08-05 15:20)
DX: K22.10 Ulcer of esophagus without bleeding (principal); B37.81 Candidal esophagitis; N39.0 Urinary tract infection, site not specified; M48.56XA Collapsed vertebra, not elsewhere classified, lumbar region, initial encounter for fracture; R78.81 Bacteremia; K25.9 Gastric ulcer, unspecified as acute or chronic, without hemorrhage or perforation; I25.10 Atherosclerotic heart disease of native coronary artery without angina pectoris; K44.9 Diaphragmatic hernia without obstruction or gangrene; F17.210 Nicotine dependence, cigarettes, uncomplicated; E87.6 Hypokalemia; J47.9 Bronchiectasis, uncomplicated; B96.1 Klebsiella pneumoniae [K. pneumoniae] as the cause of diseases classified elsewhere; I10 Essential (primary) hypertension; N20.0 Calculus of kidney; D64.9 Anemia, unspecified; K80.20 Calculus of gallbladder without cholecystitis without obstruction; E78.5 Hyperlipidemia, unspecified; E86.0 Dehydration; J84.10 Pulmonary fibrosis, unspecified; Z71.6 Tobacco abuse counseling; F03.90 Unspecified dementia, unspecified severity, without behavioral disturbance, psychotic disturbance, mood disturbance, and anxiety; Z86.73 Personal history of transient ischemic attack (TIA), and cerebral infarction without residual deficits; Z20.822 Contact with and (suspected) exposure to COVID-19; Z79.02 Long term (current) use of antithrombotics/antiplatelets; Z79.899 Other long term (current) drug therapy
CPT/HCPCS: 0241U; 36415; 70450; 71045; 74176; 76705; 80053; 81001; 81003; 83605; 83690; 83735; 83880; 84484; 85007; 85014; 85018; 85025; 85027; 87040; 87077; 87086; 87088; 87102; 87106; 87186; 87205; 88305; 88312; 88313; 88342; 93005; 97161; 99285; J0696; J0737; J1630; J1644; J2003; J2270; J2470; J2704; J2765; J3480; J7120

== ENCOUNTER → 2024-08-04 10:54 | Outpatient (BNV) | payer OTHER, SELFPAY | PROVIDERS: Emergency Provider Emergency Medicine Emergency Medical Services; PCP Internal Medicine Geriatric Medicine; Visit Provider Internal Medicine | DX: R94.31 Abnormal electrocardiogram [ECG] [EKG] (principal) | CPT/HCPCS: 93010 ==

== ENCOUNTER → 2024-08-04 11:02 | Outpatient (BNV) | payer OTHER, SELFPAY | PROVIDERS: Emergency Provider Emergency Medicine Emergency Medical Services; PCP Internal Medicine Geriatric Medicine; Visit Provider Radiology Diagnostic Radiology | DX: R10.9 Unspecified abdominal pain (principal) | CPT/HCPCS: 71045; 74176 ==

== ENCOUNTER → 2024-08-04 21:24 | Outpatient (BNV) | payer OTHER, SELFPAY | PROVIDERS: Admitting Provider Internal Medicine; Emergency Provider Emergency Medicine Emergency Medical Services; PCP Internal Medicine Geriatric Medicine; Visit Provider Internal Medicine | DX: R10.13 Epigastric pain (principal) | CPT/HCPCS: 99223; 99231; 99232; 99239; G0180 ==

== ENCOUNTER → 2024-08-04 21:24 | Outpatient (BNV) | payer OTHER, SELFPAY | PROVIDERS: Admitting Provider Internal Medicine; Emergency Provider Emergency Medicine Emergency Medical Services; PCP Internal Medicine Geriatric Medicine; Visit Provider Internal Medicine Gastroenterology | DX: K20.90 Esophagitis, unspecified without bleeding (principal); K25.9 Gastric ulcer, unspecified as acute or chronic, without hemorrhage or perforation | CPT/HCPCS: 43239 ==

== ENCOUNTER 2024-08-18 13:42 | Outpatient (REF) | payer OTHER, SELFPAY ==
[2024-08-18 13:45] LABS: MANUAL DIFF FLAG NO
[2024-08-18 13:53] LABS: Basophils Percent Auto 0.3 % (0-2); Eosinophils Absolute Auto 0.1 X10*3/uL (0.0-0.4); Eosinophils Percent Auto 1.1 % (0-4); Hematocrit 39.6 % (37.0-47.0); Hemoglobin 13.4 g/dl (12.0-16.0); Imm Gran Abs Auto 0.02 X10*3/uL (0.00-0.03); Imm Gran Pct Auto 0.2 % (0.0-0.4); Lymphocytes Absolute Auto 2.8 X10*3/uL (1.2-4.9); Lymphocytes Percent Auto 31.3 % (20-40); Mean Corpuscular HGB Conc 33.8 g/dl (31.0-35.0); Mean Corpuscular Hemoglobin 32.6 pg (27.0-33.0); Mean Corpuscular Volume 96.4 fL (80.0-98.0); Mean Platelet Volume 11.9 fL (9.4-12.3); Monocytes Absolute Auto 0.8 X10*3/uL (0.1-1.2); Monocytes Percent Auto 8.7 % (2-11); Neutrophils Absolute Auto 5.2 x10*3/uL (2.0-8.3); Neutrophils Percent Auto 58.4 % (45-73); Platelet Count 421 X10*3/uL (160-400); Red Blood Count 4.11 X10*6/uL (4.20-5.50); Red Cell Distribution Width 14.7 % (11.0-16.0); White Blood Count 8.9 X10*3/uL (4.8-10.8)
[2024-08-18 16:54] LABS: Anion Gap 14 (12-20); Blood Urea Nitrogen 11 mg/dL (9-16); Calcium 10.1 mg/dL (8.4-10.2); Carbon Dioxide 29 mmol/L (22-29); Chloride 101 mmol/L (96-108); Estimated Glomerular Filt Rate > 60; Glucose Random 157 mg/dL (60-115); Potassium 3.2 mmol/L (3.3-5.1); Sodium 141 mmol/L (135-145)
== END 2024-08-18 13:43 | disposition home or self-care (01) ==
LOC: HO.HVNA 13:42
PROVIDERS: Visit Provider Internal Medicine Geriatric Medicine
DX: N39.0 Urinary tract infection, site not specified (principal); F03.90 Unspecified dementia, unspecified severity, without behavioral disturbance, psychotic disturbance, mood disturbance, and anxiety
CPT/HCPCS: 80048; 85025

== ENCOUNTER 2024-09-23 09:04 | Outpatient (AMB) | payer OTHER, SELFPAY ==
--- NOTE | 2024-09-23 09:11 | A.OFFVIS_ITS ---
Vital Signs 09/23/24 09:14 Height 5 ft BP 135/99 H Blood Pressure Location Lt brachial Position Sitting Pulse 100 Intake Visit Reasons: EGD results Intake Note: Patient follow up from hospital after EGD Patient cc: abdominal pain, acid reflex , poor appetite, and constipation. Medical Accountant Required: No Accompanied by: Family/Other Allergies No Known Allergies [NO KNOWN ALLERGIES] Allergy (Unknown, Verified 12/21/24 09:40) UNKNOWN Medication List - Last Reconciled 09/23/24 by Shannon Aragon MD acetaminophen 500 mg PO Q6H PRN albuterol sulfate 90 mcg/actuation 2 puffs PO Q4H PRN amitriptyline 10 mg PO BEDTIME arm brace (Wrist Brace) COMFORT FORM WRIST, RT, S Disp 1 REfill 0 atorvastatin 40 mg PO DAILY calcium carbonate-vitamin D3 500 mg-10 mcg (400 unit) (Oyster Shell Calcium- Vitamin D3) 1 tab PO BID clopidogrel 1 tab PO DAILY melatonin 5 mg PO BEDTIME PRN metoprolol succinate ER 25 mg PO DAILY mirtazapine 1 tab PO BEDTIME pantoprazole 1 tab PO BID@0630,1630 polyethylene glycol 3350 17 grams PO DAILY PRN potassium chloride ER 8 mEq PO DAILY sertraline 1 tab PO DAILY HPI HPI EGD results: Details: GI clinic visit for this 83 year old Filipino-speaking female for follow-up after recent hospitalization TODAY'S VISIT: Pt is accompanied by her son and GD, Marleen who interpreted for the patient. Patient cc: abdominal pain, acid reflex , poor appetite, and constipation. Weighs 98 lbs Low energy, does'nt want to eat Family giving her soups, ensure and electrolytes Eating less than 1/2 of her food like a baby Pt has been declining and dementia is getting worse Pt complains of nausea and denies vomiting. Wt loss from 120 to 98 lbs over the past 5 to 6 months Pt wears diapers and has a normal BM daily. Denies recent diarrhea, black stools or rectal bleeding. Patient denies major cardiac or pulmonary problems, loud snoring or sleep apnea Denies problems with anesthesia in the past. Denies being on chronic anticoagulation. Patient denies known family history of colon polyps, colon cancer or other GI malignancies. Pt has arthritis with pain in the shoulders LABS IN [facility] : Reviewed IMAGING STUDIES: 08/04/[address] SCAN SHOWED: Acute to subacute superior endplate compression deformity L2 vertebra with] millimeter of retropulsion upon central canal. Cholelithiasis. Nonobstructing nephrolithiasis, left kidney. Fat-containing umbilical hernia. Hiatal hernia. Calcified mitral valve ENDOSCOPIC STUDIES: 08/05/24 EGD SHOWED: ESOPHAGUS: Small hiatal hernia with severe erosive esophagitis with possible aaron esophagitis - status post biopsies and brushings STOMACH: Three 3-5 mm non-bleeding ulcers in the gastric antrum - biopsies were obtained Plan: 1. IV PPI twice daily and switch to PO Omeprazole twice a day once pt is tolerating a PO diet. 2. Hooper of clear liquid diet tonight and advance diet as tolerated. BIOPSIES SHOWED: A. Stomach, antrum, biopsy: Antral-type mucosa with mild chronic inactive inflammation; no Helicobacter organisms seen. B. Stomach, ulcer, biopsy: Antral-type mucosa with chronic active erosive inflammation and regenerative changes; no Helicobacter organisms seen. C. Esophagus, biopsy: Fragments of inflamed smooth muscle and ulcer/necroinflammatory material; no atypia or fungi identified Fungal cultures showed Aaron glabrata PAST GI HISTORY BY REVIEW OF MEDICAL RECORDS: 08/05/24 patient was seen in consultation during hospitalization: Elisa Weaver is 83 years old with past medical history significant hyperlipidemia, hypertension, CVA, CAD, dementia and cholelithiasis who was brought to the emergency department due to sudden onset of severe epigastric pain associated with nausea and vomiting. Patient stated that the pain radiate to the chest. She denied any shortness on breath, cough, fever, chills, dizziness or palpitations. She did not report any acute urinary symptoms. Per chart review: Patient had multiple visits to the emergency department with similar symptoms. She has been evaluated in the past with surgery service for gallstones. [facility], [facility] Medical History Nausea & vomiting Gallstones Abnormal nuclear stress test HLD (hyperlipidemia) HTN (hypertension) CVA, old, disturbances of vision (~09/2019) NSTEMI (non-ST elevated myocardial infarction) Dementia Coronary artery disease Surgical History History of esophagogastroduodenoscopy (EGD) Family History Father No problems noted. Mother No problems noted. 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 Review of Systems Const All systems reviewed & are unremarkable except as noted in HPI and below Physical Exam Vital Signs: Last Vital Signs Pulse 100 09/23/24 09:14 BP 135/99 H 09/23/24 09:14 Const General: no acute distress Nutritional Appearance: underweight Orientation/consciousness: Other orientation findings (dementia) Limitations: language barrier HEENT Head: Yes normal to inspection Ears: hearing grossly normal bilaterally Eyes Sclerae: sclerae normal Pupils: Equal, round and reactive pupils present Neck Neck: Yes normal visual inspection Chest Chest palpation & inspection: normal inspection of the chest Resp Effort & Inspection: normal respiratory effort Auscultation: clear to auscultation bilaterally Cardio Palpation: normal PMI Rate: regular rate Rhythm: regular rhythm Heart sounds: S1 normal heart sound present, S2 normal heart sound present and no murmurs GI Palpation (GI): Soft to palpation, nontender and No hepatosplenomegaly present Auscultation: normal bowel sounds Rectal Exam - Female: deferred Skin General skin exam: no rashes or lesions noted Neuro General: gait normal and moves all extremities Cranial nerves: Yes Equal, round and reactive pupils present Psych Appearance: grossly normal Mental Status: mental status grossly normal Assessment & Plan Assessment & Plan (1) Candidiasis, esophageal: Code(s): B37.81 - Candidal esophagitis Category: Medical (2) Weight loss: Code(s): R63.4 - Abnormal weight loss Category: Medical Plan 84 year old Filipino-speaking female with HLD, HTN, CVA, CAD on Plavix and statin, and dementia seen for FU of dysphagia and odynophagia 08/05/24 patient was seen in consultation during hospitalization: Elisa Weaver is 83 years old with past medical history significant hyperlipidemia, hypertension, CVA, CAD, dementia and cholelithiasis who was brought to the emergency department due to sudden onset of severe epigastric pain associated with nausea and vomiting. Patient stated that the pain radiate to the chest. She denied any shortness on breath, cough, fever, chills, dizziness or palpitations. She did not report any acute urinary symptoms. EGD was performed and findings as noted above 09/23/24 Low energy, does'nt want to eat Family giving her soups, ensure and electrolytes Eating less than 1/2 of her food like a baby Pt has been declining and dementia is getting worse Pt complains of nausea and denies vomiting. Wt loss from 120 to 98 lbs over the past 5 to 6 months Pt was referred to the Electric Engine Mechanic and Dr Vogel for treatment of Esophageal infection with Aaron Glabrata Orders: Referrals Infectious Disease Referral B37.81 - Candidal esophagitis Electric Engine Mechanic Nutrition Referral R63.4 - Abnormal weight loss Coding Level of Care Code Est Pt Level 4 (35894) Diagnoses Candidiasis, esophageal B37.81 Weight loss R63.4 Time Spent (min) 24
[2024-09-23 09:14] VITALS: BP 135/99; PULSE 100
== END 2024-09-23 10:02 | disposition home or self-care (01) ==
LOC: HO.HGI 09:04
PROVIDERS: PCP Internal Medicine Geriatric Medicine; Visit Provider Internal Medicine Gastroenterology
DX: B37.81 Candidal esophagitis (principal); R63.4 Abnormal weight loss
CPT/HCPCS: 99499

== ENCOUNTER 2024-10-03 15:02 | Outpatient (AMB) | payer OTHER, SELFPAY ==
--- NOTE | 2024-10-03 15:07 | MHC.OFFVIS ---
Vital Signs 10/03/24 15:22 Pulse 94 Pulse Source Pulse Oximeter Temp 98.5 F Temp Source Oral Pulse Oximetry (%) 94 Oxygen Delivery Method Room Air Intake Visit Reasons: reff Mahesh gi/esophogeal aaron glabatra Allergies No Known Allergies [NO KNOWN ALLERGIES] Allergy (Unknown, Verified 10/03/24 15:22) UNKNOWN HPI HPI reff Mahesh gi/esophogeal aaron glabatra: Details: Patient has weight loss,dementia,lack of interest in food. She has upper endoscopy 08/05,nothing seen grossly but path came back aaron glabrata. Patient received 14 d po Diflucan high dose. She has had no complaints and is tolerating oral feedings ,including Ensure. She is here with son and granddaughter who is count room clerk. She has vaginal discharge interested in seeing Educational Resource Coordinator for. Otherwise she has no complaints. [facility] Medical History Nausea & vomiting Gallstones Abnormal nuclear stress test HLD (hyperlipidemia) HTN (hypertension) CVA, old, disturbances of vision (~09/2019) NSTEMI (non-ST elevated myocardial infarction) Dementia Coronary artery disease Surgical History History of esophagogastroduodenoscopy (EGD) Family History Father No problems noted. Mother No problems noted. 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 Review of Systems Const Unobtainable due to mental status Physical Exam Vital Signs: Last Vital Signs Temp 98.5 F 10/03/24 15:22 Pulse 94 10/03/24 15:22 Pulse Ox 94 10/03/24 15:22 Oxygen Delivery Method Room Air 10/03/24 15:22 Const General: cooperative Orientation/consciousness: patient oriented x3 HEENT Head: Yes normal to inspection Mouth: Normal oral and palatal mucosa present Eyes General: appearance normal, both eyes and all related structures Pupils: Equal, round and reactive pupils present Resp Effort & Inspection: normal respiratory effort Cardio Rate: regular rate Rhythm: regular rhythm GI Palpation (GI): Soft to palpation and nontender General: Yes no CVA tenderness Back/Spine/Pelvis Back: no CVA tenderness Skin General skin exam: no rashes or lesions noted Neuro General: patient oriented x3 Cranial nerves: Yes CN's II-XII intact bilaterally and Yes Equal, round and reactive pupils present Extrem General: Yes normal to inspection Psych Appearance: grossly normal Assessment & Plan Assessment & Plan (1) Weight loss: Code(s): R63.4 - Abnormal weight loss Category: Medical (2) Candidiasis, esophageal: Code(s): B37.81 - Candidal esophagitis Category: Medical Plan She has aaron glabrata in esophagus. She has resumed eating and has no further weight loss per family so the symptoms may have been due to dementia Family desires no treatment unless failure to thrive reappears and worsens and then would try IV and then po Voriconazole 200 mg bid for two weeks but interacts with clopidogrel so coagulation would have to be addressed. Coding Level of Care Code New Pt Level 3 (29607) Diagnoses Weight loss R63.4 Candidiasis, esophageal B37.81
[2024-10-03 15:22] VITALS: PULSE 94; TEMP 36.9; O2SAT 94
== END 2024-10-03 16:01 | disposition home or self-care (01) ==
PROVIDERS: PCP Internal Medicine Geriatric Medicine; Visit Provider Internal Medicine
DX: R63.4 Abnormal weight loss (principal); B37.81 Candidal esophagitis
CPT/HCPCS: 99203

== ENCOUNTER → 2024-10-03 15:02 | Outpatient (BNVA) | payer OTHER, SELFPAY | PROVIDERS: PCP Internal Medicine Geriatric Medicine; Visit Provider Internal Medicine | DX: R63.4 Abnormal weight loss (principal); B37.81 Candidal esophagitis | CPT/HCPCS: 99202 ==

== ENCOUNTER 2024-10-17 23:01 | Inpatient (IN) | payer OTHER, SELFPAY ==
--- NOTE | ~2024-10-17 | US_ITS ---
CLINICAL HISTORY: History of cholelithiasis, upper abdominal pain , ?cholecystitis US abdomen limited Comparison: US/SR - US ABDOMEN LIMITED - 08/05/24 09:55 EDT Findings: The common duct is 6.2 mm in diameter. Echogenic, shadowing gallstone identified near the gallbladder neck. No gallbladder wall thickening or pericholecystic fluid identified. Mildly limited visualization of the gallbladder wall on the provided sonographic images. There is no sonographic Shepard sign. No ascites visualized. IMPRESSION: 1. Cholelithiasis without sonographic evidence for acute cholecystitis. This document has been electronically signed by: Efra Stevenson MD on 10/18/2024 01:49:01
[2024-10-17 23:16] VITALS: BP 138/86; BP 173/94; PULSE 100; PULSE 71; RESP 20; TEMP 36.6; O2SAT 95; O2SAT 96; BMI 19.5
--- NOTE | 2024-10-17 23:32 | ED_ITS ---
HPI - Nausea/Vomiting/Diarrhea General Chief complaint: Nausea/Vomiting/Diarrhea Stated complaint: NAUSEOUS, ABD PAIN, THIRSTY PER EMS Time Seen by Provider: 10/17/24 23:12 History of Present Illness HPI Narrative: 83 years old with past medical history significant hyperlipidemia, hypertension, CVA, CAD, dementia and cholelithiasis with history of esophageal candidiasis comes here for increased nausea for last 1 week unable to eat because of increased nausea and substernal pain which is getting worse now Related Data Home Medications ?Medication ?Instructions ?Recorded ?Confirmed amitriptyline 10 mg tablet 10 mg PO BEDTIME 08/02/20 09/23/24 albuterol sulfate 90 mcg/actuation 2 puff PO Q4H PRN Wheezing 06/27/21 09/23/24 aerosol inhaler mirtazapine 30 mg tablet 1 tab PO BEDTIME 06/27/21 09/23/24 polyethylene glycol 3350 17 17 g PO DAILY PRN Constipation 06/27/21 09/23/24 gram/dose oral powder sertraline 25 mg tablet 1 tab PO DAILY 06/27/21 09/23/24 clopidogrel 75 mg tablet 1 tab PO DAILY 09/02/22 09/23/24 calcium 500 mg (as 1 tab PO BID 07/23/24 09/23/24 carbonate)-vitamin D3 10 mcg (400 unit) tablet (Oyster Shell Calcium-Vitamin D3) melatonin 5 mg tablet 5 mg PO BEDTIME PRN insomnia 07/23/24 09/23/24 acetaminophen 500 mg tablet 500 mg PO Q6H PRN Fever Or Pain 08/04/24 09/23/24 Previous Rx's ?Medication ?Instructions ?Recorded atorvastatin 40 mg tablet 40 mg PO DAILY #90 tabs 02/26/21 metoprolol succinate 25 mg 25 mg PO DAILY #90 tabs 02/26/21 tablet,extended release 24 hr pantoprazole 40 mg tablet,delayed 1 tab PO BID@0630,1630 #180 tabs 08/09/24 release potassium chloride 8 mEq 8 meq PO DAILY #4 tabs 08/09/24 tablet,extended release ondansetron 4 mg disintegrating 4 mg PO Q6-8H PRN nausea and 10/18/24 tablet vomiting #7 tabs sucralfate 1 gram tablet 1 g PO TID #90 tabs 10/18/24 Allergies Allergy/AdvReac Type Severity Reaction Status Date / Time No Known Allergies Allergy Unknown UNKNOWN Verified 10/17/24 23:18 [NO KNOWN ALLERGIES] Review of Systems 2 Review of Systems: Yes all other systems are reviewed and are negative [facility] Past Medical History Medical History Nausea & vomiting Gallstones Abnormal nuclear stress test HLD (hyperlipidemia) HTN (hypertension) CVA, old, disturbances of vision (~09/2019) NSTEMI (non-ST elevated myocardial infarction) Dementia Coronary artery disease Surgical History History of esophagogastroduodenoscopy (EGD) Family History Family History Father No problems noted. Mother No problems noted. 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 Oriented X3. Nausea++ Eyes: No pallor or icterus ENT: Pharynx normal. Oral Mucosa moist Neck: Normal inspection. Neck supple. CVS: Normal heart rate and rhythm. Pulses normal. Respiratory: No respiratory distress. Equal air entry bilateral, no wheezing/rales/rhonchi Abdomen: Soft and epigastric tenderness++ Bowel sounds are present, no mass palpable, no CVA tenderness Skin: Skin warm and dry. Normal skin color. Normal skin turgor. Extremities: No lower extremity edema. No calf tenderness Neuro: Oriented X 3. No motor deficit. Medications Administered Discontinued Medications Generic Name Dose Route Start Last Admin Trade Name Josh PRN Reason Stop Dose Admin Famotidine 20 mg 10/17/24 23:50 10/18/24 00:11 Famotidine/Pf 20 Mg/2 Ml Vial IVPUSH 10/17/24 23:51 20 mg ONCE ONE Administration Sodium Chloride 1,000 mls @ 999 mls/hr 10/17/24 23:34 10/18/24 00:08 Ns IV 10/18/24 00:34 999 mls/hr .Q1H1M ONE Administration Ondansetron HCl 4 mg 10/17/24 23:50 10/18/24 00:11 Ondansetron Hcl 4 Mg/2 Ml Vial IVPUSH 10/17/24 23:51 4 mg ONCE ONE Administration Medical Decision Making Medical Decision Making [facility] Narrative: Patient's gastritis with history of esophageal candidiasis Protonix twice daily will add sucralfate potassium was replaced advised to follow with surgery technician Patient will receive potassium replacement UA is pending will signed out to Dr. Arambula pending disposition Differential Diagnosis Differential Diagnoses: The differential diagnosis associated with the presentation includes Biliary colic/gastritis Admission/Observation Consideration of admission/observation: Escalation of care including admission/observation considered Lab Data [facility] Lab Attestation statement: I reviewed the patient's lab results. 10/18/24 00:05 10/18/24 00:28 Labs: Lab Results 10/18/24 10/18/24 Range/Units 00:05 00:28 WBC 13.4 H (4.8-10.8) X10*3/uL RBC 4.70 (4.20-5.50) X10*6/uL Hgb 15.4 (12.0-16.0) g/dl Hct 43.7 (37.0-47.0) % MCV 93.0 (80.0-98.0) fL MCH 32.8 (27.0-33.0) pg MCHC 35.2 H (31.0-35.0) g/dl RDW 14.4 (11.0-16.0) % Plt Count 353 (160-400) X10*3/uL MPV 11.4 (9.4-12.3) fL Immature Gran % (Auto) 0.4 (0.0-0.4) % Neut % (Auto) 71.5 (45-73) % Lymph % (Auto) 20.1 (20-40) % Cannon % (Auto) 7.5 (2-11) % Eos % (Auto) 0.1 (0-4) % Baso % (Auto) 0.4 (0-2) % Lymph # (Auto) 2.7 (1.2-4.9) X10*3/uL Cannon # (Auto) 1.0 (0.1-1.2) X10*3/uL Eos # (Auto) 0.0 (0.0-0.4) X10*3/uL Baso # (Auto) 0.1 (0.0-0.2) X10*3/uL Abs Immat Gran (auto) 0.05 H (0.00-0.03) X10*3/uL Absolute Neuts (auto) 9.6 H (2.0-8.3) x10*3/uL Absolute Nucleated RBC 0.000 (0.0-0.012) X10*3/uL Nucleated RBC % (auto) 0.0 (0.0-0.2) /100WBC Sodium 141 (135-145) mmol/L Potassium 3.0 L (3.3-5.1) mmol/L Chloride 97 (96-108) mmol/L Carbon Dioxide 30 H (22-29) mmol/L Anion Gap 17 (12-20) BUN 14 (9-16) mg/dL Creatinine 0.73 (0.5-1.4) mg/dL Estim Creat Clear Calc 39.8 Estimated GFR > 60 Random Glucose 242 H (60-115) mg/dL Calcium 10.1 (8.4-10.2) mg/dL Total Bilirubin 0.6 (0.0-1.0) mg/dL AST 24 (5-31) U/L ALT 6 (0-31) U/L Alkaline Phosphatase 63 (39-117) U/L Total Protein 7.4 (6.5-8.0) g/dL Albumin 3.6 (3.5-5.0) g/dL Lipase 14 (8-78) U/L COVID-19 (TC) Negative (Negative) COVID-19 Clin Com See Note Independent Interpretation I performed an independent interpretation of an: Ultrasound Radiology Impression Discussion of test interpretation with radiology: I have reviewed the radiologist's reading. Radiologist Impression: [address] [address] Ultrasound Report Signed Patient: Elisa Weaver MR#: [id number] : 1940 Acct:[id number] Age/Sex: 83 / F ADM Date: 10/18/24 Loc: HO.ED Attending Dr: Ordering Physician: Wander Echavarria MD Date of Service: 10/18/24 Procedure(s): US abdomen limited Accession Number(s): [id number] cc: Physician,Unknown ; Wander Echavarria MD~ CLINICAL HISTORY: History of cholelithiasis, upper abdominal pain , ?cholecystitis US abdomen limited Comparison: US/SR - US ABDOMEN LIMITED - 08/05/24 09:55 EDT Findings: The common duct is 6.2 mm in diameter. Echogenic, shadowing gallstone identified near the gallbladder neck. No gallbladder wall thickening or pericholecystic fluid identified. Mildly limited visualization of the gallbladder wall on the provided sonographic images. There is no sonographic Shepard sign. No ascites visualized. IMPRESSION: 1. Cholelithiasis without sonographic evidence for acute cholecystitis. This document has been electronically signed by: Efra Stevenson MD on 10/18/2024 01:49:01 Discharge Plan Discharge Clinical Impression: Gastritis, Gallstones Patient Disposition: Still a Patient Instructions: Gastritis (ED), Gallstones (ED) Additional Instructions: Continue Protonix start taking sucralfate 1 tablet half an hour before meals Drink plenty of fluids Follow up with the surgery technician Medicine for nausea as prescribed Prescriptions: New sucralfate 1 gram tablet 1 g PO TID Qty: 90 0RF ondansetron 4 mg tablet,disintegrating 4 mg PO Q6-8H PRN (Reason: nausea and vomiting) Qty: 7 0RF No Action atorvastatin 40 mg tablet 40 mg PO DAILY Qty: 90 3RF metoprolol succinate 25 mg tablet extended release 24 hr 25 mg PO DAILY Qty: 90 1RF mirtazapine 30 mg tablet 1 tab PO BEDTIME sertraline 25 mg tablet 1 tab PO DAILY polyethylene glycol 3350 17 gram/dose powder 17 g PO DAILY PRN (Reason: Constipation) albuterol sulfate 90 mcg/actuation HFA aerosol inhaler 2 puff PO Q4H PRN (Reason: Wheezing) clopidogrel 75 mg tablet 1 tab PO DAILY calcium carbonate-vitamin D3 [Oyster Shell Calcium-Vit D3] 500 mg-10 mcg (400 unit) tablet 1 tab PO BID melatonin 5 mg tablet 5 mg PO BEDTIME PRN (Reason: insomnia) acetaminophen 500 mg Tablet 500 mg PO Q6H PRN (Reason: Fever Or Pain) pantoprazole 40 mg tablet,delayed release (DR/EC) 1 tab PO BID@0630,1630 Qty: 180 0RF potassium chloride 8 mEq tablet extended release 8 meq PO DAILY Qty: 4 0RF amitriptyline 10 mg tablet 10 mg PO BEDTIME Print Language: Maldivian
[2024-10-18] VITALS (8 sets, daily range): BP systolic 90–142; BP diastolic 46–72; PULSE 61–88; RESP 12–18; TEMP 36.3–37.1; O2SAT 92–97; BMI 21.0
--- NOTE | 2024-10-18 | ECG_ITS ---
Test Reason : LOW K Blood Pressure : */* mmHG Vent. Rate : 83 BPM Atrial Rate : 83 BPM P-R Int : 120 ms QRS Dur : 90 ms QT Int : 406 ms P-R-T Axes : 39 -11 25 degrees QTcB Int : 477 ms Normal sinus rhythm Possible Lateral infarct , age undetermined Abnormal ECG When compared with ECG of 04-Aug-2024 18:15, No significant change was found Referred By: Xi Contreras Electronically Signed By: Chun Pritchett
[2024-10-18] MEDS: 0.9 % Sodium Chloride 1,000 ML 999 ML IV ×2 (00:08→06:58)
[2024-10-18 00:11] LABS: MANUAL DIFF FLAG NO
[2024-10-18] MEDS: ondansetron HCL 4 MG/2 ML VIAL IVPUSH (00:11)
[2024-10-18] MEDS: Famotidine/PF 20 MG/2 ML VIAL IVPUSH (00:11)
--- NOTE | 2024-10-18 00:18 | PC.NURSE ---
Per lab department, labs hemolyzed. Obtained 22g IV access to right forearm. Medicated per MD orders.
[2024-10-18 00:19] LABS: Basophils Absolute Auto 0.1 X10*3/uL (0.0-0.2); Basophils Percent Auto 0.4 % (0-2); Eosinophils Percent Auto 0.1 % (0-4); Hematocrit 43.7 % (37.0-47.0); Hemoglobin 15.4 g/dl (12.0-16.0); Imm Gran Abs Auto 0.05 X10*3/uL (0.00-0.03); Imm Gran Pct Auto 0.4 % (0.0-0.4); Lymphocytes Absolute Auto 2.7 X10*3/uL (1.2-4.9); Lymphocytes Percent Auto 20.1 % (20-40); Mean Corpuscular HGB Conc 35.2 g/dl (31.0-35.0); Mean Corpuscular Hemoglobin 32.8 pg (27.0-33.0); Mean Platelet Volume 11.4 fL (9.4-12.3); Monocytes Percent Auto 7.5 % (2-11); Neutrophils Absolute Auto 9.6 x10*3/uL (2.0-8.3); Neutrophils Percent Auto 71.5 % (45-73); Platelet Count 353 X10*3/uL (160-400); Red Cell Distribution Width 14.4 % (11.0-16.0); White Blood Count 13.4 X10*3/uL (4.8-10.8)
[2024-10-18 00:33] LABS: COVID-19 Test Negative (Negative); IDNOW Serial# 55D5AD1C
[2024-10-18 00:50] LABS: Alanine Aminotransferase 6 U/L (0-31); Albumin Level 3.6 g/dL (3.5-5.0); Anion Gap 17 (12-20); Aspartate Amino Transferase 24 U/L (5-31); Bilirubin Total 0.6 mg/dL (0.0-1.0); Blood Urea Nitrogen 14 mg/dL (9-16); Calcium 10.1 mg/dL (8.4-10.2); Carbon Dioxide 30 mmol/L (22-29); Chloride 97 mmol/L (96-108); Creatinine Clr Calc Pharmacy 39.8; Estimated Glomerular Filt Rate > 60; Glucose Random 242 mg/dL (60-115); Lipase 14 U/L (8-78); Sodium 141 mmol/L (135-145); Total Protein 7.4 g/dL (6.5-8.0)
[2024-10-18 01:04] LABS: Alkaline Phosphatase 63 U/L (39-117)
--- NOTE | 2024-10-18 01:40 | PC.NURSE ---
Per Marilou (radiology department), patient vomited all over self while away in radiology. Marilou described as looks like bile to this RN. Patient was medicated with Zofran, IV fluids, & Pepcid prior to going away for imaging and was dry heaving but not vomiting at that time. 22g IV access to right forearm, patent/functional. Awaiting imaging results.
[2024-10-18] MEDS: Potassium Chloride/H20 10 MEQ/100 ML PIGGYBACK 100 MEQ IV (02:09)
--- NOTE | 2024-10-18 04:02 | PC.NURSE ---
placed on portable monitor in [facility] for potassium replacement - potassium has infused at this time.
[2024-10-18] MEDS: Prochlorperazine Edisylate 10 MG/2 ML VIAL IVPUSH (04:15)
--- NOTE | 2024-10-18 04:44 | PC.NURSE ---
patient's oxygen was found to be 88% on room air. attempted to reposition patient for better reading, remained 88-90%. placed on 2L nasal cannula, oxygen has improved at this time
--- NOTE | 2024-10-18 06:55 | PC.NURSE ---
verbal order for second liter of fluids to infuse - pressures have been mildly hypotensive - 90's systolic
[2024-10-18 09:04] LABS: Appearance Urine Cloudy; Color Urine Yellow; Glucose Urine UA Negative (Negative); Leukocyte Esterase Urine Large (3+) (Negative); Nitrite Urine Positive (Negative); PH 6.5 (5.0-9.0); Specific Gravity - Urine 1.015 (1.005-1.025); UMIC TRIGGER UACC YES; Urine Blood Small (1+) (Negative); Urine Ketones Trace mg/dL (Negative); Urine Protein 30 (1+) mg/dL (Neg-Trace)
[2024-10-18 09:13] LABS: Bacteria Urine 4+ (None Seen); Squamous Epithelial Cell Urine 0-2 /HPF (0-2); UACC Culture Trigger YES; WBC Urine >50 /HPF (0-5)
[2024-10-18] MEDS: 0.9 % Sodium Chloride 1,000 ML 250 ML IV (09:30)
--- NOTE | 2024-10-18 10:07 | PC.NURSE ---
first set of blood cultures obtained and sent. patient difficult stick, difficulty with obtaining second set of cultures.
[2024-10-18 10:14] LABS: Anion Gap 8 (12-20); Blood Urea Nitrogen 13 mg/dL (9-16); Calcium 8.7 mg/dL (8.4-10.2); Carbon Dioxide 26 mmol/L (22-29); Chloride 111 mmol/L (96-108); Creatinine Clr Calc Pharmacy 46.8; Estimated Glomerular Filt Rate > 60; Glucose Random 117 mg/dL (60-115); Potassium 3.8 mmol/L (3.3-5.1); Sodium 141 mmol/L (135-145)
--- NOTE | 2024-10-18 10:21 | PC.NURSE ---
order for NS 1000mL - provider states to give 250mL bag only. unable to order 250mL bag.
[2024-10-18] MEDS: cefTRIAXone sodium 1 GM VIAL IVPUSH (10:48)
--- NOTE | 2024-10-18 11:30 | PM.IMHP ---
History of Present Illness Date of Service: 10/18/24 Chief Complaint: 1 x week worsening abdominal pain and nausea 83 female with past medical history of HLD, HTN, CVA, NSTEMI, dementia, CAD on Plavix and statin, recently diagnoses with esophageal candidiasis. Pt presents to ED with reports on worsening abdominal pain x 1 week, although pain is generalized she does however indicate pain is more-so in the RUQ and epigastric areas. Reports waxing and waning nausea, which is worse postprandial, now with intermittent scant vomiting. States PO intake has been mostly normal overall. Denies any black, bloody or coffee ground like emesis or stools that she can recall. Feels bowel movements have not changed, unsure last one but thinks was day before yesterday and is passing gas. Denies fevers, profuse sweating, is struggling with memory but doesn't think she has had any problems with urination or foul smelling discolored urine. Unclear if incontinent. Is not toxic appearing, or guarding, although she does intermittently rub her epigastric area and reports pain.She is alert and cooperative, with some noted confusion but is aware of person, and place/situation. Has had multiple hospital visits, including recently in Nov. for similar symptoms. Review of Systems Review of Systems: Unsure of weight changes Denies fever, chills, or changes to sleep Endorses pain, and fatigue Eyes: Comments: Denies any acute vision changes ENT: Comments: Denies headache, changes to hearing, vertigo, congestion or rhinorrhea, and sore throat Cardiovascular: Comments: Denies palpitations, diaphoresis, orthopnea, or CP Respiratory: Comments: Denies cough, hemoptysis, wheezing, or pleuritic pain Gastrointestinal: Comments: Denies bleeding, tarry or black stools, no coffee ground emesis Endorses N/V, postprandial pain Genitourinary: Comments: Denies difficulty with urination, foul smell or change in urine color, frequency or urgency Musculoskeletal: Comments: Denies muscle or joint pain Integumentary/Breasts: Comments: Denies rashes or wounds Neurologic: Comments: Denies dizziness, seizures, numbness/tingling, or tremors COUNT INCLUDES THE [facility] Medical History Nausea & vomiting Gallstones Abnormal nuclear stress test HLD (hyperlipidemia) HTN (hypertension) CVA, old, disturbances of vision (~09/2019) NSTEMI (non-ST elevated myocardial infarction) Dementia Coronary artery disease Family History Father No problems noted. Mother No problems noted. 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 Meds Allergies Allergy/AdvReac Type Severity Reaction Status Date / Time No Known Allergies Allergy Unknown UNKNOWN Verified 10/17/24 23:18 [NO KNOWN ALLERGIES] Active Medications: Current Medications Sodium Chloride (Ns) 1,000 mls @ 250 mls/hr IV .Q4H ONE Stop: 10/18/24 13:18 Last Admin: 10/18/24 09:30 Dose: 250 mls/hr Home Medications ?Medication ?Instructions ?Recorded ?Confirmed ?Last Taken ?Type amitriptyline 10 mg tablet 10 mg PO BEDTIME 08/02/20 10/18/24 Unknown History albuterol sulfate 90 mcg/actuation 2 puff PO Q4H PRN Wheezing 06/27/21 10/18/24 Unknown History aerosol inhaler mirtazapine 30 mg tablet 30 mg PO BEDTIME 06/27/21 10/18/24 Unknown History polyethylene glycol 3350 17 17 g PO DAILY PRN Constipation 06/27/21 10/18/24 Unknown History gram/dose oral powder sertraline 25 mg tablet 1 tab PO DAILY 06/27/21 10/18/24 Unknown History clopidogrel 75 mg tablet 1 tab PO DAILY 09/02/22 10/18/24 Unknown History calcium 500 mg (as 1 tab PO BID 07/23/24 10/18/24 Unknown History carbonate)-vitamin D3 10 mcg (400 unit) tablet (Oyster Shell Calcium-Vitamin D3) melatonin 5 mg tablet 5 mg PO BEDTIME PRN insomnia 07/23/24 10/18/24 Unknown History acetaminophen 500 mg tablet 500 mg PO Q6H PRN Fever Or Pain 08/04/24 10/18/24 Unknown History Physical Exam Vital Signs and Narrative: Vital Signs: Last Vital Signs Temp 98.6 F 10/18/24 10:51 Pulse 88 10/18/24 10:51 Resp 15 10/18/24 10:51 BP 109/51 L 10/18/24 10:51 Pulse Ox 96 10/18/24 10:51 O2 Del Method Room Air 10/18/24 10:51 O2 Flow Rate 2 10/18/24 06:00 BMI result Body Mass Index 19.5 Const: General: cooperative, alert, awake and tired appearing Nutritional Appearance: thin Orientation/consciousness: oriented to person and oriented to place HEENT: Head: Yes normocephalic Ears: hearing grossly normal bilaterally General nose exam: Normal external nose present Face and sinus: Yes normal facial exam Eyes: General: appearance normal, both eyes and all related structures Conjunctivae: conjunctival abnormal (red lower lid line) EOM: EOMs intact bilaterally Neck: Yes normal visual inspection and Yes full ROM Resp: Effort & Inspection: normal respiratory effort and able to speak in complete sentences Auscultation: diminished lung sounds bilateral throughout and diffuse Cardio: Rate: regular rate Rhythm: regular rhythm GI: Palpation (GI): Tenderness to palpation present (GI) in the epigastrum, in the LLQ, in the RLQ, in the LUQ and in the RUQ Auscultation: Hypoactive bowel sounds present Skin: General skin exam: no rashes or lesions noted Neuro: General: oriented to person and oriented to place Cranial nerves: Yes CN's II-XII intact bilaterally Results Labs 10/18/24 00:05 10/18/24 09:47 Labs: Laboratory Results - last 24 hr 10/18/24 10/18/24 10/18/24 00:05 00:28 08:46 MCV 93.0 MCH 32.8 MCHC 35.2 H RDW 14.4 Plt Count 353 MPV 11.4 Immature Gran % (Auto) 0.4 Neut % (Auto) 71.5 Lymph % (Auto) 20.1 Richardson % (Auto) 7.5 Eos % (Auto) 0.1 Baso % (Auto) 0.4 Lymph # (Auto) 2.7 Richardson # (Auto) 1.0 Eos # (Auto) 0.0 Baso # (Auto) 0.1 Abs Immat Gran (auto) 0.05 H Absolute Neuts (auto) 9.6 H Absolute Nucleated RBC 0.000 Nucleated RBC % (auto) 0.0 Anion Gap 17 Estim Creat Clear Calc 39.8 Estimated GFR > 60 Random Glucose 242 H Lactic Acid Calcium 10.1 Total Bilirubin 0.6 AST 24 ALT 6 Alkaline Phosphatase 63 Total Protein 7.4 Albumin 3.6 Lipase 14 Urine Color Yellow Urine Appearance Cloudy Urine pH 6.5 Ur Specific [place] 1.015 Urine Protein 30 (1+) H Urine Glucose (UA) Negative Urine Ketones Trace Urine Blood Small (1+) H Urine Nitrite Positive H Ur Leukocyte Esterase Large (3+) H Urine RBC 6-10 H Urine WBC >50 H Ur Squamous Epith Cells 0-2 Urine Bacteria 4+ Hyaline Casts 3-5 COVID-19 (TC) Negative COVID-19 Clin Com See Note 10/18/24 09:47 MCV MCH MCHC RDW Plt Count MPV Immature Gran % (Auto) Neut % (Auto) Lymph % (Auto) Richardson % (Auto) Eos % (Auto) Baso % (Auto) Lymph # (Auto) Richardson # (Auto) Eos # (Auto) Baso # (Auto) Abs Immat Gran (auto) Absolute Neuts (auto) Absolute Nucleated RBC Nucleated RBC % (auto) Anion Gap 8 L Estim Creat Clear Calc 46.8 Estimated GFR > 60 Random Glucose 117 H Lactic Acid 1.0 Calcium 8.7 D Total Bilirubin AST ALT Alkaline Phosphatase Total Protein Albumin Lipase Urine Color Urine Appearance Urine pH Ur Specific [place] Urine Protein Urine Glucose (UA) Urine Ketones Urine Blood Urine Nitrite Ur Leukocyte Esterase Urine RBC Urine WBC Ur Squamous Epith Cells Urine Bacteria Hyaline Casts COVID-19 (TC) COVID-19 Clin Com Assessment and Plan (1) Gastritis: Status: Acute (2) Epigastric pain: Status: Acute (3) Acute UTI: Status: Acute Plan 83 female with past medical history of HLD, HTN, CVA, NSTEMI, dementia, CAD on Plavix and statin, presenting to ED with reports on worsening abdominal pain x 1 week more-so in the RUQ, and epigastric. With nausea, worse postprandial, now with intermittent scant vomiting. Abdominal pain, N/V likely secondary to history of severe erosive esophagitis and gastric ulcers question compliance with home medications. Recently underwent upper endoscopy on 08/05/2024 that showed severe erosive esophagitis, hiatal hernia, multiple small nonbleeding gastric ulcers. no RUQ tenderness, normal LFTs, US not indicative of acute cholecytisis diet as tolerated Pain control Will resume PPI, add sulcrafate and antiemetics as needed Acute UTI Rocephin given in ED leukocytosis, afebrile no sepsis, follow urine and blood cultures, follow CBC CVA, CVD continue Plavix HLD continue statin DVT prophylaxis: pneumatic boots Code status:full code Quality Stroke Does the patient have a stroke diagnosis?: No VTE Prior VTE?: No VTE Risk Level:: Medical - moderate - high VTE Device Contraindication: N/A - Device Ordered VTE Drug Contraindication: Treatment Not Indicated
--- NOTE | 2024-10-18 11:49 | PHA.MEDREC ---
Pharmacy Consult ? Medication Reconciliation Pharmacy has completed the medication reconciliation.Med rec complete, spoke to patient's grand daughter who confirmed all medications. The only med she was unsure of was clopidogrel but found in notes it was held on last admission but supposed to be restarted.
[2024-10-18] MEDS: Omeprazole 40 MG CAPSULE.DR PO (15:43)
[2024-10-18] MEDS: Sucralfate 1 GM TABLET PO ×2 (15:43→21:58)
[2024-10-18] MEDS: 0.9 % Sodium Chloride Flush 3 ML SYRINGE IVFLUSH ×2 (15:43→21:58)
[2024-10-18] MEDS: Amitriptyline HCl 10 MG TABLET PO (21:58)
[2024-10-19 03:47] VITALS: BP 95/55; PULSE 63; RESP 18; TEMP 36.7; O2SAT 94
[2024-10-19] MEDS: Omeprazole 40 MG CAPSULE.DR PO ×2 (05:09→15:54)
[2024-10-19] MEDS: Acetaminophen 325 MG TABLET 650 MG PO (05:09)
[2024-10-19] MEDS: Calcium Carbonate 750 MG TAB.CHEW PO (05:13)
[2024-10-19 07:38] VITALS: BP 105/51; PULSE 70; RESP 16; TEMP 36.6; O2SAT 92
[2024-10-19] MEDS: 0.9 % Sodium Chloride Flush 3 ML SYRINGE IVFLUSH ×3 (08:36→20:34)
[2024-10-19] MEDS: Clopidogrel Bisulfate 75 MG TABLET PO (08:38)
[2024-10-19] MEDS: Sertraline HCL 25 MG TABLET PO (08:38)
[2024-10-19] MEDS: Atorvastatin Calcium 40 MG TABLET PO (08:38)
[2024-10-19] MEDS: Sucralfate 1 GM TABLET PO ×4 (08:38→20:34)
[2024-10-19] MEDS: cefTRIAXone sodium 1 GM VIAL IVPUSH (08:38)
[2024-10-19 08:45] LABS: Hematocrit 33.2 % (37.0-47.0); Hemoglobin 11.1 g/dl (12.0-16.0); Mean Corpuscular HGB Conc 33.4 g/dl (31.0-35.0); Mean Corpuscular Hemoglobin 32.6 pg (27.0-33.0); Mean Corpuscular Volume 97.6 fL (80.0-98.0); Mean Platelet Volume 12.1 fL (9.4-12.3); Platelet Count 263 X10*3/uL (160-400); Red Cell Distribution Width 15.1 % (11.0-16.0); White Blood Count 8.2 X10*3/uL (4.8-10.8)
--- NOTE | 2024-10-19 10:26 | P.CDIM_ITS ---
PROVIDER RESPONSE TEXT: To clarify, the appropriate diagnosis supported by the clinical indicators: Acute on chronic QUERY TEXT: PHYSICIAN'S DOCUMENTATION REQUEST Date of Query: 10/19/2024 08:50 AM EST Patient Name: Elisa Weaver Admit Date: 10/18/2024 Dear Galo Moreno MD, A review of the medical record indicates additional documentation may be needed. Please review below and update the documentation accordingly. Clinical Indicators: H&P dated 10/18 within the Plan: Abdominal pain, N/V likely secondary to history of severe erosive eso phagitis and gastric ulcers question compliance with home medications. Pain control, resume PPI, add sulcrafate and antiemetics as needed. Please clarify and place which of the following accurately represents the acuity of the Gastric ulcer within the body of your written Plan: Possible options might include: Acute Acute on chronic Chronic Other (explain) Clinically unable to determine (explain) Thank you, Fernanda Sauceda, CCS, CDIS Use of terms such as suspected, likely, concern for, or probable (associated with a specific diagnosi s that is being evaluated, monitored, or treated as if it exists) are acceptable and can be coded in the inpatient se tting, when documented at the time of discharge. Please use your independent medical judgment in providing your response. THIS QUERY IS PART OF THE PERMANENT MEDICAL RECORD
--- NOTE | 2024-10-19 14:43 | HO.PM.IMPN ---
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 Review of Systems Unable to obtain due to mental status Physical Exam Vital Signs: Vital Signs: Last Vital Signs Temp 97.8 F 10/19/24 07:38 Pulse 70 10/19/24 07:38 Resp 16 10/19/24 07:38 BP 105/51 L 10/19/24 07:38 Pulse Ox 92 10/19/24 07:38 O2 Del Method Room Air 10/19/24 07:38 O2 Flow Rate 2 10/18/24 06:00 BMI result Body Mass Index 21.0 Const: Other: General resting comfortably in no acute distress. Moist mucous membranes Neck no JVD. CVS regular rate rhythm, Respiratory lungs clear to auscultation, no respiratory distress, no wheeze, no rhonchi. Gastrointestinal abdomen soft, non tender, bowel sounds audible Extremities no edema. Neuro non focal Skin no rash Objective Data Active Medications Acetaminophen (Acetaminophen 325 Mg Tablet) 650 mg PO Q6H PRN PRN Reason: Pain, Mild 1-3,fever,headache Last Admin: 10/19/24 05:09 Dose: 650 mg Documented By: BRENDA Albuterol Sulfate (Albuterol Sulfate 90 Mcg 8 Gm Inhaler) 2 puff INHALE RQ4H PRN PRN Reason: sob Amitriptyline HCl (Amitriptyline Hcl 10 Mg Tablet) 10 mg PO BEDTIME [facility] Last Admin: 10/18/24 21:58 Dose: 10 mg Documented By: BRENDA Atorvastatin Calcium (Atorvastatin Calcium 40 Mg Tablet) 40 mg PO DAILY [facility] Last Admin: 10/19/24 08:38 Dose: 40 mg Documented By: GUNNAR Calcium Carbonate (Calcium Carbonate 750 Mg Tab.Chew) 750 mg PO Q4H PRN PRN Reason: Heartburn Last Admin: 10/19/24 05:13 Dose: 750 mg Documented By: BRENDA Ceftriaxone Sodium (Ceftriaxone Sodium 1 Gm Vial) 1 gm IVPUSH Q24H [facility] Last Admin: 10/19/24 08:38 Dose: 1 gm Documented By: GUNNAR Clopidogrel Bisulfate (Clopidogrel Bisulfate 75 Mg Tablet) 75 mg PO DAILY [facility] Last Admin: 10/19/24 08:38 Dose: 75 mg Documented By: GUNNAR Magnesium Hydroxide (Milk Of Magnesia 30 Ml Oral.Susp) 30 ml PO DAILY PRN PRN Reason: Constipation Melatonin (Melatonin 3 Mg Tablet) 6 mg PO BEDTIME PRN PRN Reason: Insomnia Omeprazole (Omeprazole 40 Mg Capsule.Dr) 40 mg PO BID@0630,1630 [facility] Last Admin: 10/19/24 05:09 Dose: 40 mg Documented By: BRENDA Ondansetron HCl (Ondansetron Hcl 4 Mg/2 Ml Vial) 4 mg IVPUSH Q8H PRN PRN Reason: Nausea and Vomiting Polyethylene Glycol (Polyethylene Glycol 3350 17 Gm Powd.Pack) 17 gm PO DAILY PRN PRN Reason: Constipation Polyethylene Glycol (Polyethylene Glycol 3350 17 Gm Powd.Pack) 17 gm PO DAILY PRN PRN Reason: Constipation Sertraline HCl (Sertraline Hcl 25 Mg Tablet) 25 mg PO DAILY [facility] Last Admin: 10/19/24 08:38 Dose: 25 mg Documented By: GUNNAR Sodium Chloride (0.9 % Sodium Chloride Flush 3 Ml Syringe) 3 ml IVFLUSH QSHIFT [facility] Last Admin: 10/19/24 08:36 Dose: 3 ml Documented By: GUNNAR Sucralfate (Sucralfate 1 Gm Tablet) 1 gm PO QIDACHS [facility] Last Admin: 10/19/24 12:00 Dose: 1 gm Documented By: GUNNAR Labs 10/19/24 07:48 10/18/24 09:47 Labs: Laboratory Results - last 24 hr 10/19/24 10/19/24 05:48 07:48 MCV 97.6 MCH 32.6 MCHC 33.4 RDW 15.1 Plt Count 263 D MPV 12.1 Absolute Nucleated RBC 0.000 Nucleated RBC % (auto) 0.0 Hold Green Top See Note Microbiology Microbiology Results: Microbiology 10/18/24 10:28 Blood Culture - Preliminary Blood - Venous No growth after 24 hours. 10/18/24 09:47 Blood Culture - Preliminary Blood - Venous No growth after 24 hours. 10/18/24 Unknown Urine Culture - Preliminary Urine clean catch - Clean Catch Midstream Gram negative alejo Assessment and Plan (1) Acute UTI: Status: Acute Plan 83 female with past medical history of HLD, HTN, CVA, NSTEMI, dementia, CAD on Plavix and statin, presenting to ED with reports on worsening abdominal pain x 1 week more-so in the RUQ, and epigastric. With nausea, worse postprandial, now with intermittent scant vomiting. Abdominal pain, N/V likely secondary to history of severe erosive esophagitis and gastric ulcers question compliance with home medications. Recently underwent upper endoscopy on 08/05/2024 that showed severe erosive esophagitis, hiatal hernia, multiple small nonbleeding gastric ulcers. Abdominal pain resolved normal LFTs, US not indicative of acute cholecytisis diet as tolerated cont PPI, and sulcrafate and antiemetics as needed Acute UTI Abdominal pain likely due to UTI. WBC normalized, afebrile urine culture grew Gram-negative alejo, and blood cultures x2 negative Continue IV ceftriaxone day 2 CVA, CVD continue Plavix HLD continue statin DVT prophylaxis: pneumatic boots Code status:full code Quality Stroke Does the patient have a stroke diagnosis?: No VTE Prior VTE?: No VTE Risk Level:: Medical - moderate - high VTE Device Contraindication: N/A - Device Ordered VTE Drug Contraindication: Treatment Not Indicated
[2024-10-19 14:57] VITALS: BP 119/60; PULSE 70; RESP 18; TEMP 36.5; O2SAT 95
[2024-10-19 18:55] VITALS: BP 126/65; PULSE 72; RESP 16; TEMP 36.8; O2SAT 94
[2024-10-19] MEDS: Amitriptyline HCl 10 MG TABLET PO (20:34)
[2024-10-20 02:31] VITALS: BP 113/58; PULSE 70; RESP 16; TEMP 36.9; O2SAT 96
[2024-10-20 07:34] VITALS: BP 115/58; PULSE 78; RESP 16; TEMP 36.5; O2SAT 97
[2024-10-20] MEDS: 0.9 % Sodium Chloride Flush 3 ML SYRINGE IVFLUSH (09:02)
[2024-10-20] MEDS: cefTRIAXone sodium 1 GM VIAL IVPUSH (09:02)
[2024-10-20] MEDS: Acetaminophen 325 MG TABLET 650 MG PO (09:07)
[2024-10-20] MEDS: Atorvastatin Calcium 40 MG TABLET PO (09:07)
[2024-10-20] MEDS: Sertraline HCL 25 MG TABLET PO (09:07)
[2024-10-20] MEDS: Clopidogrel Bisulfate 75 MG TABLET PO (09:07)
[2024-10-20] MEDS: Sucralfate 1 GM TABLET PO (09:07)
--- NOTE | 2024-10-20 10:43 | MHC.CM.PN ---
Addendum entered by Margy Gamboa 10/20/24 11:22: DP: PT HAS BEEN MEDICALLY CLEARED FOR DC HOME, NO SERVICES. SON WILL TRANSPORT. Original Note: IMM DELIVERED TO SON VIA [employer]. SON REQUESTS WHITE COPY BE LEFT AT BEDSIDE. PT LIVES WITH SON WHO IS ALSO COOLER ROOM WORKER. PT USES [facility] FOR MOST MOBILITY. +HCP, [facility] ON FILE. PCP ASAD HENDRIX DP: HOME WITH RESUMPTION OF COOLER ROOM WORKER SERVICES/FAMILY SUPPORT. PT'S SON WILL TRANSPORT HOME. CM WILL CONTINUE TO FOLLOW FOR ANY CHANGE TO DC PLAN/NEEDS.
--- NOTE | 2024-10-20 11:11 | P.DS_ITS ---
DS: Providers Provider Date of Service: 10/20/24 Date of admission: 10/18/24 14:25 Date of discharge: 10/20/24 Primary care physician: Unknown Physician DS: Diagnosis Discharge Diagnosis (1) Acute UTI: Status: Acute DS: Summary Hospital Course Hospital Course: History of presenting illness: Date of Service: 10/18/24 Chief Complaint: 1 x week worsening abdominal pain and nausea 83 female with past medical history of HLD, HTN, CVA, NSTEMI, dementia, CAD on Plavix and statin, recently diagnoses with esophageal candidiasis. Pt presents to ED with reports on worsening abdominal pain x 1 week, although pain is generalized she does however indicate pain is more-so in the RUQ and epigastric areas. Reports waxing and waning nausea, which is worse postprandial, now with intermittent scant vomiting. States PO intake has been mostly normal overall. Denies any black, bloody or coffee ground like emesis or stools that she can recall. Feels bowel movements have not changed, unsure last one but thinks was day before yesterday and is passing gas. Denies fevers, profuse sweating, is struggling with memory but doesn't think she has had any problems with urination or foul smelling discolored urine. Unclear if incontinent. Is not toxic appearing, or guarding, although she does intermittently rub her epigastric area and reports pain.She is alert and cooperative, with some noted confusion but is aware of person, and place/situation. Has had multiple hospital visits, including recently in Nov. for similar symptoms. Hospital course: 83 female with past medical history of HLD, HTN, CVA, NSTEMI, dementia, CAD on Plavix and statin, presenting to ED with reports on worsening abdominal pain x 1 week more-so in the RUQ, and epigastric. With nausea, worse postprandial, Abdominal pain, N/V likely secondary to history of severe erosive esophagitis and gastric ulcers question compliance with home medications,Recently underwent upper endoscopy on 08/05/2024 that showed severe erosive esophagitis, hiatal hernia, multiple small nonbleeding gastric ulcers, treated with PPI and sucralfate abdominal pain resolved, noted to have normal LFTs and abdominal ultrasound not indicative of acute cholecystitis recommend compliance with home medications. Acute UTI Abdominal pain likely due to UTI treated with IV ceftriaxone WBC normalized urine culture grew Klebsiella pneumoniae sensitive to ceftriaxone blood cultures x2 were negative patient is being discharged home on Ceftin 250 mg b.i.d. CVA, CVD continue Plavix HLD continue statin Time Attestation Discharge Coordination Time (in mins): 36 Quality: Safe Use of Opioids Does Pt have an Active Cancer Diagnosis on the Problem List?: No Quality: Stroke Does the patient have a stroke diagnosis?: No Physical Exam Vital Signs: Vital Signs: Last Vital Signs Temp 97.7 F 10/20/24 07:34 Pulse 78 10/20/24 07:34 Resp 16 10/20/24 07:34 BP 115/58 L 10/20/24 07:34 Pulse Ox 97 10/20/24 07:34 O2 Del Method Room Air 10/20/24 07:34 O2 Flow Rate 2 10/18/24 06:00 BMI result Body Mass Index 21.0 Const: Other: General resting comfortably in no acute distress. Moist mucous membranes Neck no JVD. CVS regular rate rhythm, Respiratory lungs clear to auscultation, no respiratory distress, no wheeze, no rhonchi. Gastrointestinal abdomen soft, non tender, bowel sounds audible Extremities no edema. Neuro non focal Skin no rash DS: Data Data Completed and Pending Completed studies during hospitalization [Text1]: Procedures Excision of Esophagus, Via Natural or Artificial Opening Endoscopic, Diagnostic (08/04/24) Excision of Stomach, Pylorus, Via Natural or Artificial Opening Endoscopic, Diagnostic (08/04/24) Extraction of Esophagus, Via Natural or Artificial Opening Endoscopic, Diagnostic (08/04/24) Labs on day of discharge: Preliminary micro results at discharge 10/18/24 10:28 Blood Culture - Preliminary Blood - Venous No growth after 24 hours. 10/18/24 09:47 Blood Culture - Preliminary Blood - Venous No growth after 24 hours. Discharge Plan Discharge Anticipated Discharge Date/Time: 10/20/24 11:02 Patient Disposition: Home, Self-Care Discharge Diagnosis: acute uti Referrals: Physician,Unknown J [Primary Care Provider] - 1 Week Discharge Medications: New sucralfate 1 gram tablet 1 g PO TID Qty: 90 0RF ondansetron 4 mg tablet,disintegrating 4 mg PO Q6-8H PRN (Reason: nausea and vomiting) Qty: 7 0RF cefuroxime axetil 250 mg tablet 250 mg PO BID Qty: 6 0RF Continued atorvastatin 40 mg tablet 40 mg PO DAILY Qty: 90 3RF mirtazapine 30 mg tablet 30 mg PO BEDTIME sertraline 25 mg tablet 1 tab PO DAILY polyethylene glycol 3350 17 gram/dose powder 17 g PO DAILY PRN (Reason: Constipation) albuterol sulfate 90 mcg/actuation HFA aerosol inhaler 2 puff PO Q4H PRN (Reason: Wheezing) clopidogrel 75 mg tablet 1 tab PO DAILY calcium carbonate-vitamin D3 [Oyster Shell Calcium-Vit D3] 500 mg-10 mcg (400 unit) tablet 1 tab PO BID melatonin 5 mg tablet 5 mg PO BEDTIME PRN (Reason: insomnia) acetaminophen 500 mg Tablet 500 mg PO Q6H PRN (Reason: Fever Or Pain) pantoprazole 40 mg tablet,delayed release (DR/EC) 1 tab PO BID@0630,1630 Qty: 180 0RF amitriptyline 10 mg tablet 10 mg PO BEDTIME Changed metoprolol succinate 25 mg tablet extended release 24 hr 12.5 mg PO DAILY Qty: 90 1RF Discharge Orders: Discharge Order (Routine); Ordered 10/20/24 Ordered By: Galo Moreno Diet: Advance to usual diet Activity on Discharge: As tolerated Stand Alone Forms: Patient Portal Discharge page Print Language: Arabic Activity Restrictions/Additional Instructions: Continue Protonix start taking sucralfate 1 tablet half an hour before meals Drink plenty of fluids 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
== END 2024-10-20 14:16 | disposition home or self-care (01) | DRG 690 ==
LOC: HO.ED 10-18 09:24 → HO.EDOVER 10-18 14:39 → HO.S3 10-18 16:19
PROVIDERS: Emergency Medicine; Admitting Provider Hospitalist; Emergency Provider Internal Medicine; Visit Provider Hospitalist
DX: N39.0 Urinary tract infection, site not specified (principal); K22.10 Ulcer of esophagus without bleeding; K25.3 Acute gastric ulcer without hemorrhage or perforation; K25.7 Chronic gastric ulcer without hemorrhage or perforation; I25.10 Atherosclerotic heart disease of native coronary artery without angina pectoris; F03.90 Unspecified dementia, unspecified severity, without behavioral disturbance, psychotic disturbance, mood disturbance, and anxiety; E78.5 Hyperlipidemia, unspecified; B96.1 Klebsiella pneumoniae [K. pneumoniae] as the cause of diseases classified elsewhere; Z86.73 Personal history of transient ischemic attack (TIA), and cerebral infarction without residual deficits; Z91.148 Patient's other noncompliance with medication regimen for other reason; Z20.822 Contact with and (suspected) exposure to COVID-19; Z79.02 Long term (current) use of antithrombotics/antiplatelets; Z79.899 Other long term (current) drug therapy
CPT/HCPCS: 36415; 76705; 80048; 80053; 81001; 81003; 83605; 83690; 85025; 85027; 87040; 87086; 87088; 87186; 87635; 93005; 97161; 99285; J0696; J0737; J2405; J3480

== ENCOUNTER → 2024-10-18 00:01 | Outpatient (BNV) | payer OTHER, SELFPAY | PROVIDERS: Emergency Provider Internal Medicine; Visit Provider Radiology Diagnostic Radiology | DX: R10.10 Upper abdominal pain, unspecified (principal) | CPT/HCPCS: 76705 ==

== ENCOUNTER → 2024-10-18 03:17 | Outpatient (BNV) | payer OTHER, SELFPAY | PROVIDERS: Admitting Provider Hospitalist; Emergency Provider Internal Medicine; Visit Provider Internal Medicine Cardiovascular Disease | DX: R94.31 Abnormal electrocardiogram [ECG] [EKG] (principal) | CPT/HCPCS: 93010 ==

== ENCOUNTER → 2024-10-18 14:25 | Outpatient (BNV) | payer OTHER, SELFPAY | PROVIDERS: Admitting Provider Hospitalist; Emergency Provider Internal Medicine; Visit Provider Hospitalist | DX: K29.70 Gastritis, unspecified, without bleeding (principal); R10.13 Epigastric pain; N39.0 Urinary tract infection, site not specified | CPT/HCPCS: 99223; 99232; 99239 ==

== ENCOUNTER 2024-11-16 14:51 | Emergency (ER) | payer OTHER, SELFPAY ==
--- NOTE | ~2024-11-16 | XR_ITS ---
EXAMINATION: XR CHEST CLINICAL INFORMATION: pain. COMPARISON: 08/04/2024. TECHNIQUE: Frontal view of the chest was obtained. FINDINGS: The cardiac, hilar, and mediastinal contours are normal. Aortic mural calcification. The lungs are clear bilaterally. There is trace linear atelectasis left costophrenic angle. No pneumothorax or effusion. No focal osseous or soft tissue abnormality. Arthritic changes in both shoulder joints and spine. Possible loose bodies in the left glenohumeral joint recess. XR/XR chest 1V IMPRESSION: No active pulmonary disease. Electronically signed by: Oscar Harris MD 11/16/2024 04:01 PM [facility]
[2024-11-16 14:59] VITALS: BP 104/72; PULSE 90; O2SAT 84
[2024-11-16 15:06] VITALS: BP 119/69; PULSE 84; RESP 16; TEMP 36.7; O2SAT 97; BMI 16.0
--- NOTE | 2024-11-16 15:24 | ECG_ITS ---
Test Reason : ABD PAIN Blood Pressure : */* mmHG Vent. Rate : 81 BPM Atrial Rate : 81 BPM P-R Int : 130 ms QRS Dur : 86 ms QT Int : 416 ms P-R-T Axes : 62 4 29 degrees QTcB Int : 483 ms Normal sinus rhythm Possible Lateral infarct (cited on or before 18-Oct-2024) Abnormal ECG When compared with ECG of 18-Oct-2024 03:17, No significant change was found Referred By: Leyla Longo Electronically Signed By: AUDREY SERRA MD
--- NOTE | 2024-11-16 15:25 | ED.GENADULT ---
HPI - General Adult General Chief complaint: General Medical Stated complaint: Upper abd pain, dementia, 84RA, 96% on 4L Time Seen by Provider: 11/16/24 15:02 Source: patient, EMS, old records reviewed and educational sign language interpreter Mode of arrival: EMS Limitations: other (cognitive impairment) History of Present Illness ED Provider: KELIN HPI narrative: 83 yo female with PMH of CAD on palvix, HTN, HLD, dementia, NSTEMI, thrush, just admitted here in Oct 2024 with abdominal pain, nausea with hx of erosive esophagitis and gastric ulcers seen on EGD negative abdominal US during that visit and UTI treated wtih ceftin (klebsiella pneumonia S to ceftriaxone). She comes back and states she has pain in her abdomen. Family told EMS she is crying at night. Patient herself states she fell yesterday onto right side she has mild pain but wants to go home. No headstrike or LOC attempts to reach son MD complaint: abdominal pain Onset (ago): month(s) Location: abdomen Radiation: non-radiation Pain Consistency: constant Relieving factors: none Exacerbating factors: none Associated symptoms: denies other symptoms Treatments prior to arrival: none Related Data Home Medications ?Medication ?Instructions ?Recorded ?Confirmed amitriptyline 10 mg tablet 10 mg PO BEDTIME 08/02/20 10/18/24 albuterol sulfate 90 mcg/actuation 2 puff PO Q4H PRN Wheezing 06/27/21 10/18/24 aerosol inhaler mirtazapine 30 mg tablet 30 mg PO BEDTIME 06/27/21 10/18/24 polyethylene glycol 3350 17 17 g PO DAILY PRN Constipation 06/27/21 10/18/24 gram/dose oral powder sertraline 25 mg tablet 1 tab PO DAILY 06/27/21 10/18/24 clopidogrel 75 mg tablet 1 tab PO DAILY 09/02/22 10/18/24 calcium 500 mg (as 1 tab PO BID 07/23/24 10/18/24 carbonate)-vitamin D3 10 mcg (400 unit) tablet (Oyster Shell Calcium-Vitamin D3) melatonin 5 mg tablet 5 mg PO BEDTIME PRN insomnia 07/23/24 10/18/24 acetaminophen 500 mg tablet 500 mg PO Q6H PRN Fever Or Pain 08/04/24 10/18/24 Previous Rx's ?Medication ?Instructions ?Recorded atorvastatin 40 mg tablet 40 mg PO DAILY #90 tabs 02/26/ pantoprazole 40 mg tablet,delayed 1 tab PO BID@0630,1630 #180 tabs 08/09/24 release ondansetron 4 mg disintegrating 4 mg PO Q6-8H PRN nausea and 10/18/24 tablet vomiting #7 tabs sucralfate 1 gram tablet 1 g PO TID #90 tabs 10/18/24 cefuroxime axetil 250 mg tablet 250 mg PO BID #6 tabs 10/20/24 metoprolol succinate 25 mg 12.5 mg (1/2 x 25 mg) PO DAILY #90 10/20/24 tablet,extended release 24 hr tabs cefuroxime axetil 250 mg tablet 250 mg PO BID 7 days #14 tabs 11/16/24 Allergies Allergy/AdvReac Type Severity Reaction Status Date / Time No Known Allergies Allergy Unknown UNKNOWN Verified 11/16/24 15:07 [NO KNOWN ALLERGIES] Review of Systems Review of Systems: ROS unable to be obtained due to dementia [facility] Past Medical History Attestation statement: The following information was validated with the patient. Source: old records reviewed Medical History Nausea & vomiting Gallstones Abnormal nuclear stress test HLD (hyperlipidemia) HTN (hypertension) CVA, old, disturbances of vision (~09/2019) NSTEMI (non-ST elevated myocardial infarction) Dementia Coronary artery disease Surgical History History of esophagogastroduodenoscopy (EGD) Family History Family History Father No problems noted. Mother No problems noted. Social History Social History Household Members: Unknown / Unable to assess Housing: Unknown / Unable to assess Alcohol intake: former Comment: 1:1 Patient Tobacco Use Status: Never used Tobacco Tobacco use type: Smokeless Tobacco Years Smoked: Chews tobacco Smoked in Last 30 Days: No e-Cigarette/Vaping Use: Never Used Second Hand Smoke Exposure: No Use of substances other than those prescribed or required for medical reasons: No Advance Directives: Yes Advance Directives on File: Yes Advance Directives Date on File: 09/02/22 Do you have a plan to hurt others: No Plan service: No Current occupational status: retired and disabled 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 Oriented X to place and self. No acute distress. Eyes: Pupils equal, round and reactive to light. ENT: Pharynx normal. atraumatic Neck: Normal inspection. Neck supple. CVS: Normal heart rate and rhythm. Pulses normal. Chest: no ttp or deformity of the chest wall Respiratory: No respiratory distress. Breath sounds normal. Abdomen: Soft and neg hernandez very mild ttp with deep palpation in epigastric area Skin: Skin warm and dry. Normal skin color. Normal skin turgor. Extremities: No lower extremity edema. Neuro: Oriented X 3. No motor deficit. No sensory deficit. CN2-12 intact Course Course Course Narrative: granddaughter states the patient ate today then cried her stomach hurt so they called 911 no falls occurred she has this on and off Reevaluation(s) Reevaluation #1: repeat trop flat Medical Decision Making Medical Decision Making [facility] Narrative: 83 yo female with PMH of CAD on palvix, HTN, HLD, dementia, NSTEMI, thrush now here with c/o vague possible fall vs chronic abdominal pain at this time no signs of head trauma I will order labs, CXR, call family to discuss if there was a fall. History is limited Differential Diagnosis Differential Diagnoses: The differential diagnosis associated with the presentation includes gastritis, PUD, atypical chest pain on exam has no pain now doubt acute intraabdominal pathology neg hernandez's sign Admission/Observation Consideration of admission/observation: Escalation of care including admission/observation considered no hypoxia negative CXR labs reassuring COVID + unclear symptoms and no hypoxia to suggest VTE and neg pneumonia + UA will start on ceftin and replete K and DC home Lab Data [facility] Lab Attestation statement: I reviewed the patient's lab results. 11/16/24 16:29 11/16/24 16:29 Labs: Lab Results 11/16/24 11/16/24 11/16/24 Range/Units 15:47 16:29 18:11 WBC 8.7 (4.8-10.8) X10*3/uL RBC 4.15 L D (4.20-5.50) X10*6/uL Hgb 13.7 D (12.0-16.0) g/dl Hct 38.9 (37.0-47.0) % MCV 93.7 (80.0-98.0) fL MCH 33.0 (27.0-33.0) pg MCHC 35.2 H (31.0-35.0) g/dl RDW 14.1 (11.0-16.0) % Plt Count 305 (160-400) X10*3/uL MPV 11.3 (9.4-12.3) fL Immature Gran % (Auto) 0.2 (0.0-0.4) % Neut % (Auto) 49.2 (45-73) % Lymph % (Auto) 40.5 H (20-40) % [place] % (Auto) 9.0 (2-11) % Eos % (Auto) 0.8 (0-4) % Baso % (Auto) 0.3 (0-2) % Lymph # (Auto) 3.5 (1.2-4.9) X10*3/uL [place] # (Auto) 0.8 (0.1-1.2) X10*3/uL Eos # (Auto) 0.1 (0.0-0.4) X10*3/uL Baso # (Auto) 0.0 (0.0-0.2) X10*3/uL Abs Immat Gran (auto) 0.02 (0.00-0.03) X10*3/uL Absolute Neuts (auto) 4.3 (2.0-8.3) x10*3/uL Absolute Nucleated RBC 0.000 (0.0-0.012) X10*3/uL Nucleated RBC % (auto) 0.0 (0.0-0.2) /100WBC Hold Purple Top SEE NOTE Hold Blue Top SEE NOTE Sodium 135 (135-145) mmol/L Potassium 3.2 L (3.3-5.1) mmol/L Chloride 101 (96-108) mmol/L Carbon Dioxide 23 (22-29) mmol/L Anion Gap 14 (12-20) BUN 12 (9-16) mg/dL Creatinine 0.62 (0.5-1.4) mg/dL Estim Creat Clear Calc 40.4 Estimated GFR > 60 Random Glucose 117 H (60-115) mg/dL Calcium 8.9 (8.4-10.2) mg/dL Magnesium 1.8 (1.6-2.6) mg/dL Total Bilirubin 0.5 (0.0-1.0) mg/dL Direct Bilirubin 0.1 (0.0-0.5) mg/dL AST 30 (5-31) U/L ALT 7 (0-31) U/L Alkaline Phosphatase 61 (39-117) U/L Troponin I High Sens 24.1 H 28.5 H 26.6 H (<3.5-17.0) ng/L C-Reactive Protein 0.69 H (< or = 0.50) mg/dL Total Protein 7.2 (6.5-8.0) g/dL Albumin 3.4 L (3.5-5.0) g/dL Lipase 28 (8-78) U/L Urine Color Yellow Urine Appearance Turbid Urine pH 7.0 (5.0-9.0) Ur Specific [place] 1.020 (1.005-1.025) Urine Protein 30 (1+) H (Neg-Trace) mg/dL Urine Glucose (UA) Negative (Negative) mg/dL Urine Ketones 15 (Negative) mg/dL Urine Blood Large (3+) H (Negative) Urine Nitrite Positive H (Negative) Ur Leukocyte Esterase Large (3+) H (Negative) Urine RBC >20 H (0-2) /HPF Urine WBC >50 H (0-5) /HPF Ur Squamous Epith Cells 6-10 (0-2) /HPF Urine Bacteria 3+ (None Seen) Hyaline Casts 6-10 (0-2) /LPF Influenza Type A (PCR) NEGATIVE (Negative) Influenza Type B (PCR) NEGATIVE (Negative) RSV RNA Qual (PCR) NEGATIVE (Negative) SARS-CoV-2 RNA (RT-PCR) POSITIVE A (Negative) Independent Interpretation I performed an independent interpretation of an: EKG and Plain X-Ray (no pneumonia) Interpretation: Rate: 81 Rhythm: NSR [place]: normal Normal P waves. Normal SATHYA. Normal QRS complex. ST T wave : normal no ALTA, inverted t waves III qTC: 483 prior studies: no acute ischemia The study has been interpreted contemporaneously by me. . Radiology Impression Discussion of test interpretation with radiology: I have reviewed the radiologist's reading. Independent Historian Clinical information obtained from an independent historian. History obtained from or confirmed by: EMS and Other (son) External Record Review External record reviewed: Outpatient record Prescription Management I considered prescription management with: Antibiotic Discharge Plan Discharge Clinical Impression: Acute UTI, COVID-19 Gastritis Qualifiers: Gastritis type: unspecified gastritis Chronicity: acute Gastritis bleeding: without bleeding Qualified Code(s): K29.00 - Acute gastritis without bleeding Patient Disposition: Home, Self-Care Instructions: Gastritis (ED), Urinary Tract Infection in Older Adults (ED), COVID-19 (Coronavirus Disease 2019) (ED) Additional Instructions: return for worsening pain, confusion, difficulty breathing, high fevers, or any other concerns COVID + monitor her breathing and symptoms given antibiotics for a UTI please continue next dose is tomorrow 11/17 please follow up with her primary care doctor Prescriptions: New cefuroxime axetil 250 mg tablet 250 mg PO BID 7 Days Qty: 14 0RF No Action atorvastatin 40 mg tablet 40 mg PO DAILY Qty: 90 3RF mirtazapine 30 mg tablet 30 mg PO BEDTIME sertraline 25 mg tablet 1 tab PO DAILY polyethylene glycol 3350 17 gram/dose powder 17 g PO DAILY PRN (Reason: Constipation) albuterol sulfate 90 mcg/actuation HFA aerosol inhaler 2 puff PO Q4H PRN (Reason: Wheezing) clopidogrel 75 mg tablet 1 tab PO DAILY calcium carbonate-vitamin D3 [Oyster Shell Calcium-Vit D3] 500 mg-10 mcg (400 unit) tablet 1 tab PO BID melatonin 5 mg tablet 5 mg PO BEDTIME PRN (Reason: insomnia) acetaminophen 500 mg Tablet 500 mg PO Q6H PRN (Reason: Fever Or Pain) pantoprazole 40 mg tablet,delayed release (DR/EC) 1 tab PO BID@0630,1630 Qty: 180 0RF sucralfate 1 gram tablet 1 g PO TID Qty: 90 0RF ondansetron 4 mg tablet,disintegrating 4 mg PO Q6-8H PRN (Reason: nausea and vomiting) Qty: 7 0RF metoprolol succinate 25 mg tablet extended release 24 hr 12.5 mg PO DAILY Qty: 90 1RF cefuroxime axetil 250 mg tablet 250 mg PO BID Qty: 6 0RF amitriptyline 10 mg tablet 10 mg PO BEDTIME Print Language: Maltese
[2024-11-16 16:17] LABS: Troponin-I High Sensitivity 24.1 ng/L (<3.5-17.0)
[2024-11-16 16:35] LABS: Influenza A PCR NEGATIVE (Negative); Influenza B PCR NEGATIVE (Negative); Resp Syncy Virus RNA Qual PCR NEGATIVE (Negative); SARS COV2 PCR INHOUSE POSITIVE (Negative)
--- OUTSIDE RECORDS SUMMARY | 2024-11-16 16:37 | XMS_ITS | Encounter Summary ---
Author Organization [employer] Address [address] [facility] [address] [place] [address] Care Team Providers Care Editor In Chief Name Role Phone Name, Stef ESTRADA Primary Care Provider [phone] Reason for Visit * Reason Onset Date Comments Durable Medical Equipment 10/28/2024 Encounter Details Date Type Department Care Team ([facility] st Contact Info) Description 10/28/2024 Telephone [facility] [address] [place], [place] [phone] Name, MD Stef [address] [place] [address] Durable Medical Equipment Social History Tobacco Use Types Packs/Day Years Used Date Smoking Tobacco: Never Smokeless Tobacco: Current Chew Alcohol Use Standard Drinks/Week Comments Never 0 (1 standard drink = 0.6 oz pur e alcohol) Depression Answer Date Recorded Patient Health Questionnaire-9 Score 0 01/28/2024 Patient Health Questionnaire-9 Score 0 01/28/2024 Last PHQ-9: Questionnaire Data Not on file 0 01/28/2024 Housing Stability Answer Date Recorded What is your housing situation today? I have stu guaman 01/28/[address] you li ve. Do you have problems with any of the following? None of the above 01/28/2024 Food Insecurity Answer Date Recorded Within the past 12 months, y ou worried that your food would run out before you got money to buy more: Never True 01/28/2024 Within the past 12 months,th e food you bought just didn't last and you didn't have enough money to get more: Never True Transportation Answer Date Recorded In the past 12 months, has l ack of transportation kept you from medical appts, meetings, work or from getting things needed for daily living? No 01/28/2024 Utilities Answer Date Recorded In the past 12 months, has t he electric, gas, oil or water company threatened to shut off services in your home? No 01/28/2024 Depression Answer Date Recorded Patient Health Questionnaire-2 Score 0 01/28/2024 Comments Unknown Sex and Gender Information Value Date Recorded Sex Assigned at Female 08/04/2022 10:14 AM EDT Legal Sex Female 10:14 AM EDT Gender Identity Female 08/04/2022 10:14 AM EDT Sexual Orientation Straight 08/04/2022 10 :14 AM EDT documented as of this encounter Miscellaneous Notes * Telephone Encounter - Elizabeth Chicas - 11/09/2024 1:50 PM EST DME RX for bed rails signed and faxed to [facility]. Confirmation received and sent to [facility]. If patient calls to check status on above, please advise them to contact [facility] career developer . * Telephone Encounter - Elizabeth Chicas - 10/31/2024 10:12 AM EST DME RX for bed rails generated and placed on providers desk for signature. * Telephone Encounter - Carlo Carroll - 10/28/2024 12:35 PM EST Tc magdalene Cody [facility] Nurse stating that Pt is requesting Bed rails so that pt dosent Roll of the Bedand hurt Herself. Contact pt Son at [phone] documented in this encounter Plan of Treatment Upcoming Encounters Date Type Department Care Team (Late st Contact Info) Description 12/05/2024 1:00 PM EST Office Visit [facility] [address] [place] [address] Name, MD Stef [address] [place] [address] documented as of this encounter Visit Diagnoses Not on filedocumented in this encounter Additional Health Concerns Assessment Noted Time PHQ-9 Depression Total Score: 0 01/28/20 10:49 AM EDT documented as of this encounter Care Teams Editor In Chief Relationship Specialty Start Date End Date Name, MD Stef [address] [place] [address] PCP - General Family Medicine 01/28/16 Yuliya [facility] 07/27/24 documented as of this encounter
--- OUTSIDE RECORDS SUMMARY | 2024-11-16 16:37 | XMS_ITS | Encounter Summary ---
Author Organization [employer] Address [address] [facility] [address] [facility] [address] [place] [address] Care Team Providers Care Fitness Supervisor Name Role Phone Name, Stef ESTRADA Primary Care Provider [phone] Reason for Visit * Reason Onset Date Comments Durable Medical Equipment 07/25/2024 Encounter Details Date Type Department Care Team ([facility] st Contact Info) Description 07/25/2024 Telephone [facility] [address] [place], [place] [phone] Name, MD Stef [address] [place] [address] Durable Medical Equipment Social History Tobacco Use [...] encounter Miscellaneous Notes * Telephone Encounter - Barber Morgan - 07/25/2024 9:01 AM EDT Tc from [place] with [facility] requesting a script for a bed rail. Please contact at [phone] documented in this encounter Plan of Treatment Upcoming Encounters Date Type Department Care Team (Late st Contact Info) Description 12/05/2024 1:00 PM EST Office Visit [facility] [address] [place] [phone] Name, MD Stef [address] [place] [address] documented as of this encounter Visit Diagnoses Not on filedocumented in this encounter Additional Health Concerns Assessment Noted Time PHQ-9 Depression Total Score: 0 01/28/20 10:49 AM EDT documented as of this encounter Care Teams Fitness Supervisor Relationship Specialty Start Date End Date Name, MD Stef [address] [place] [phone] PCP - General Family Medicine 01/28/16 Yuliya ALFRED 07/27/24 documented as of this encounter
--- OUTSIDE RECORDS SUMMARY | 2024-11-16 16:37 | XMS_ITS | Encounter Summary ---
Author Organization [employer] Address [address] [facility] [address] [place] [address] Care Team Providers Care Cpr Ambulance Driver Name Role Phone Name, Stef ESTRADA Primary Care Provider [phone] Encounter Details Date Type Department Care Team (Late st Contact Info) Description 10/26/2024 Refill [facility] [address] [place], [place] [phone] Jenna Mixon, PharmD 230 [place] [address] Social History Tobacco Use Types Packs/Day Years [...] encounter Miscellaneous Notes * Telephone Encounter - Jenna Mixon PharmD - 10/26/2024 3:43 PM EST Dose decreased at [facility] discharge 10/20/24 documented in this encounter Plan of Treatment Upcoming Encounters Date Type Department Care Team (Late st Contact Info) Description 12/05/2024 1:00 PM EST Office Visit [facility] [address] [place] [address] Name, MD Stef [address] [place] [address] documented as of this encounter Visit Diagnoses Not on filedocumented in this encounter Additional Health Concerns Assessment Noted Time PHQ-9 Depression Total Score: 0 01/28/20 10:49 AM EDT documented as of this encounter Care Teams Cpr Ambulance Driver Relationship Specialty Start Date End Date Name, MD Stef [address] [place] [address] PCP - General Family Medicine 01/28/16 [facility] documented as of this encounter
--- OUTSIDE RECORDS SUMMARY | 2024-11-16 16:37 | XMS_ITS | Encounter Summary ---
Author Organization [employer] Address [address] [facility] [address] [address] [place] [address] Care Team Providers Care Polymer Engineer Name Role Phone Name, Stef ESTRADA Primary Care Provider Encounter Details Date Type Department Care Team ([facility] st Contact Info) Description 10/26/2024 Telephone [facility] [address] [place], [place] [phone] Jenna Mixon, VikasD 230 [place] [address] Social History Tobacco Use Types Packs/Day Years [...] Encounter - Jenna Mixon PharmD - 10/26/2024 3:47 PM EST Patient discharged [facility] 10[facility]20[facility]24. Please outreach patient to schedule HDF. Thank you documented in this encounter Plan of Treatment Upcoming Encounters Date Type Department Care Team (Late st Contact Info) Description 12/05/2024 1:00 PM EST Office Visit [facility] [address] [place] [address] Name, MD Stef [address] [place] [address] documented as of this encounter Visit Diagnoses Not on filedocumented in this encounter Additional Health Concerns Assessment Noted Time PHQ-9 Depression Total Score: 0 01/28/20 24 10:49 AM EDT documented as of this encounter Care Teams Polymer Engineer Relationship Specialty Start Date End Date NameStef MD [address] [place] [address] PCP - General Family Medicine 01/28/16 Yuliya Amrit 07/27/24 documented as of this encounter
--- OUTSIDE RECORDS SUMMARY | 2024-11-16 16:37 | XMS_ITS | Data Portability ---
Author Organization [employer] [facility] [employer] Address [address] [place] [address] Care Team Providers Care Mason Apprentice Name Role Phone [facility] Referring Provider [facility] Referring Provider Assessment Encounter Date Assessment Date Assessment LastModified by Organization Details LastModified Time 04/22/2022 04/22/2022 I have reviewed and agree with the assessment and plan as documented by the chief juvenile probation officer. I provided real-time medical direction for this encounter and was immediately available to provide additional phone-based assistance as needed. Patient seen for wrist discomfort s/p known ulnar fracture with prior splinting. Per report pt well appearing AVSS with no distal RUE discoloration. R hand warm and well perfused, mobile, and sensate per report. Splint anum wrap loosened to examine extremity. Tx w/ low dose ketorolac injection, advised apap use and ice / elevation. PATIENT WOULD BENEFIT FROM ASSISTANCE WITH EXPEDITED ORTHOPEDIC APPOINTMENT. pallfather Not available 04/22/2022 19:27:01 Plan of Treatment Reminders Order Date Submit Date Provider Last Modified By Organization Details Last Modified Time Details Appointments None record ed. Lab None record ed. Referral None record ed. Procedures None record ed. Surgeries None record ed. Imaging None record ed. Medication Orders None record ed. Patient TargetsNo targets recorded. Patient InstructionsNo instructions recorded. Reason for Referral None Reported. Medical Equipment None Reported. Medications Name Sig Start Date Stop Date Status Note LastModified by Organization Details LastModified Time amoxicillin 500 mg capsule TAKE 1 CAPSULE BY MOUTH EVERY 8 HOURS UNTIL FINISHED active Not Available Not Available No t Available atorvastatin 40 mg tablet TAKE 1 TABLET BY MOUTH EVERY MORNING active Not Available Not Available No t Available cefuroxime axetil 250 mg tablet TAKE 1 TABLET BY MOUTH TWICE DAILY UNTIL FINISHED active Not Available Not Available No t Available trazodone 50 mg tablet TAKE 1 TABLET BY MOUTH AT BEDTIME NEEDED active Not Available Not Available No t Available Pain Reliever (acetaminoph en) 325 mg tablet TAKE 1 TABLET BY MOUTH EVERY 4 HOURS NEEDED active Not Available Not Available No t Available ondansetron HCl 4 mg tablet TAKE 1 TABLET BY MOUTH TWICE DAILY NEEDED FOR NAUSEA active Not Available Not Available No t Available sumatriptan 50 mg tablet TAKE 1 TABLET BY MOUTH AT ONSET OF MIGRAINE. MAY REPEAT AFTER 2 HOURS IF HEADACHE RETURNS. NOT TO EXCEED 200 MG IN 24 HOURS active Not Available Not Available No t Available acetaminophe n 300 mg-codeine 30 mg tablet TAKE 1 TABLET BY MOUTH EVERY 8 HOURS NEEDED FOR PAIN active Not Available Not Available No t Available clopidogrel 75 mg tablet TAKE 1 TABLET BY MOUTH EVERY MORNING active Not Available Not Available No t Available aspirin 81 mg tablet,delay ed release TAKE 1 TABLET BY MOUTH EVERY MORNING active Not Available Not Available No t Available tramadol 50 mg tablet TAKE 1 TABLET BY MOUTH EVERY 12 HOURS NEEDED active Not Available Not Available No t Available acetaminophe n 500 mg tablet TOME MAKAYLA TABLETA CADA SEIS HORAS CUANDO SEA NECESARIO PARA EL DOLOR OR FEVER active Not Available Not Available No t Available hydrocortiso ne 2.5 % topical cream with perineal applicator APPLY TOPICALLY TO THE AFFECTED AREA FOUR TIMES DAILY NEEDED FOR HEMORRHOIDS active Not Available Not Available Not Available amitriptylin e 10 mg tablet TAKE 1 TABLET BY MOUTH AT BEDTIME active Not Available Not Available No t Available pantoprazole 40 mg tablet,delay ed release TAKE 1 TABLET BY MOUTH TWICE DAILY IN THE MORNING AND IN THE EVENING active Not Available Not Available No t Available mirtazapine 30 mg tablet TAKE 1 TABLET BY MOUTH AT BEDTIME active Not Available Not Available No t Available ibuprofen 200 mg tablet TAKE 1 TABLET BY MOUTH EVERY 6 HOURS NEEDED FOR PAIN active Not Available Not Available No t Available docusate sodium 100 mg capsule TAKE 1 CAPSULE BY MOUTH TWICE DAILY active Not Available Not Available No t Available sertraline 25 mg tablet TAKE 1 TABLET BY MOUTH EVERY MORNING active Not Available Not Available No t Available metoprolol succinate ER 25 mg tablet,exten ded release 24 hr TAKE 1 TABLET BY MOUTH EVERY MORNING active Not Available Not Available No t Available polyethylene glycol 3350 17 gram/dose oral powder TAKE 17 GM MIXED IN 8 OUNCES OF WATER ONCE DAILY DIRECTED active Not Available Not Available No t Available albuterol sulfate HFA 90 mcg/actuatio n aerosol inhaler INHALE 2 PUFFS BY MOUTH EVERY 4 TO 6 HOURS NEEDED active Not Available Not Available No t Available ondansetron 4 mg disintegrati ng tablet DISSOLVE 1 TABLET ON THE TONGUE EVERY 8 HOURS NEEDED FOR NAUSEA OR VOMITING active Not Available Not Available No t Available sertraline 50 mg tablet TAKE 1 TABLET BY MOUTH EVERY MORNING active Not Available Not Available No t Available naproxen 500 mg tablet TOME MAKAYLA TABLETA DOS VECES AL D A CUANDO SEA NECESARIO PARA EL DOLOR POR 10 D active Not Available Not Available No t Available chlorhexidin e gluconate 0.12 % mouthwash RINSE FOR 30 SECONDS WITH A HALF OUNCE (15ml) TWICE DAILY, SPIT OUT -- DO NOT SWALLOW. active Not Available Not Available No t Available blood pressure test kit-large cuff USE TO CHECK BLOOD PRESSURE DIRECTED active Not Available Not Available No t Available Vitals None Recorded Social History None recorded. Functional Status None recorded. Mental Status None recorded. Family History Nothing Reported. Medical History No medical history recorded. Gynecological HistoryNo gynecological history recorded. Obstetrics History GPAL:G 0 P 0 0 0 0 Past Encounters Encounter ID Performer Location Encounter Start Date Encounter Closed Date Diagnosis/Indication Diagnosis SNOMED-CT Code Diagnosis ICD10 Code Diagnosis Note [id number] Ralf Valladares MD [facility] [address] [place] [address] [phone] 04/22/2022 14:09:54 06/10/2022 12:23:06 Pain in wrist 32463036 M25.531 Health Concerns Section Related Observation LastModified by Organization Detai ls LastModified Time None Recorded Concern Status LastModified by Organization Details LastModified Time None Recorded Advance Directives Directive None Recorded Payers Encounter Date Sequence Insurance Name Policy Number Policy Hinson Covered Member ID Hinson Member ID Guarantor Name 04/22/2022 1 [facility] - DOS PRIOR TO 2023 - DUAL ELIGIBLE (MEDICARE REPLACEMENT/ADV ANTAGE - HMO) Elisa Weaver [id number] Elisa Weaver Notes Date Note Type Note Provider Name and Address Organization Details Recorded Time 04/22/2022 text/html HPI: Patient with 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 Fell 03/14/22 with episode of dizziness, + UTI. Fracture of Wrist Right Distal Ulnar fracture. Splinted. Never made appt. with Ortho. Returned to ED 04/19/22 DVT RUE negative. Now with appt. 04/25/22 930am but is in severe pain. .................. .................. .................. .................. .................. .................. .................. ............... CRC Nursing Assessment: Comments: Per STENO TYPIST, if possible please avoid Bactrim as treatment, as member has had an BRIANNE in the past with use of this abx .................. .................. .................. .................. .................. .................. .................. ............... Lay Out Carpenter Note: eval for pain after right wrist FX [...] family members in attendance care for pt. [facility] ordered 15 mg toradol for pain, given with some relief. elevated arm on pillow, put ice pack on wrist area with some relief. [facility] to call and try and get an earlier appointment for ortho .................. .................. .................. .................. .................. .................. .................. ............... Disposition: Fulfilled Ralf Valladares MD [address] [facility],[address], [place], [phone], [facility] - ERIC BREEN 04/22/2022 19:27:13 OBGyn Episode No OBEpisode recorded.
--- OUTSIDE RECORDS SUMMARY | 2024-11-16 16:37 | XMS_ITS | Encounter Summary ---
Author Organization [employer] Address [address] [facility] [facility] [address] [place] [address] Care Team Providers Care Surfboard Maker Name Role Phone Name, Stef ESTRADA Primary Care Provider [phone] Reason for Visit * Reason Comments Transition Of Care (Tcm) Unable to LVM Encounter Details Date Type Department Care Team ([facility] st Contact Info) Description 10/26/2024 Patient Outreach [facility] [address] [place] [address] Name, MD Stef [address] [place] [address] Transition Of Care (Tcm) (Unable to LVM ) Social History Tobacco Use Types Packs/Day Years [...] as of this encounter Miscellaneous Notes * Significant Event - Ant Sargent - 10/26/2024 4:04 PM EST 10/26/24 [id number] Hospital Discharges and Admission for [facility] Type of Visit Hospital Admission Date of Admission/Visit 10/18/24 Date of Discharge 10/20/24 [facility] Diagnosis Acute UTI Disposition Discharged Home Follow-Up Actions Follow-Up Needed Provider appointment Follow-Up Outcome No Answer/No VM Initial Contact Date 10/26/24 CC Ant Brody placed outbound call to patient for HDF outreach. CC placing call to offer patient with an HDF appointment with provider. No answer at this time. Patient's name and were not confirmed. CC was unable to leave a voicemail at this time. Will place an additional outreach call within 2-5 business days. documented in this encounter Plan of Treatment Upcoming Encounters Date Type Department Care Team (Late st Contact Info) Description 12/05/2024 1:00 PM EST Office Visit [facility] [address] [place] [address] Name, MD Stef [address] [place] [address] documented as of this encounter Visit Diagnoses Not on filedocumented in this encounter Additional Health Concerns Assessment Noted Time PHQ-9 Depression Total Score: 0 01/28/20 24 10:49 AM EDT documented as of this encounter Care Teams Surfboard Maker Relationship Specialty Start Date End Date Name, MD Stef [address] [facility] [place] [address] PCP - General Family Medicine 01/28/16 Yuliya ALFRED 07/27/24 documented as of this encounter
--- OUTSIDE RECORDS SUMMARY | 2024-11-16 16:37 | XMS_ITS | Encounter Summary ---
Author Organization [employer] Address [address] [place] [address] Care Team Providers Care Export Agent Name Role Phone Name, Stef ESTRADA Primary Care Provider [phone] Reason for Visit * Reason Onset Date Comments Paperwork/Forms 04/18/2024 Encounter Details Date Type Department Care Team ([facility] st Contact Info) Description 04/18/2024 Telephone [facility] [address] [place] [address] Name, MD Stef [address] [place] [address] Paperwork/Forms Social History Tobacco Use Types Packs/Day Years [...] encounter Miscellaneous Notes * Telephone Encounter - Gabrielle Mcnair - 04/18/2024 12:40 PM EDT Tc from Emily, nurse at [facility] requesting paperwork to be sign as soon as possible in order to them be able to admit pt into services. Please contact Emily at [phone] if any question. documented in this encounter Plan of Treatment Upcoming Encounters Date Type Department Care Team (Late st Contact Info) Description 12/05/2024 1:00 PM EST Office Visit [facility] [address] [place] [address] Name, MD Stef [address] [place] [address] documented as of this encounter Visit Diagnoses Not on filedocumented in this encounter Additional Health Concerns Assessment Noted Time PHQ-9 Depression Total Score: 0 01/28/20 10:49 AM EDT documented as of this encounter Care Teams Export Agent Relationship Specialty Start Date End Date Name, MD Stef [address] [place] [address] PCP - General Family Medicine [facility] documented as of this encounter
--- OUTSIDE RECORDS SUMMARY | 2024-11-16 16:37 | XMS_ITS | Clinical Summary ---
Author Organization [employer] Address [address] [facility] 7[address] [place] [address] Care Team Providers Care Collection Support Specialist Name Role Phone Name, Stef ESTRADA Primary Care Provider [phone] Allergies Active Allergy Reactions Criticality Noted Date Comments Rofecoxib 01/28/2024 Other Reaction(s): Calcium carbonate calculus Medications albuterol (ProAir HFA) 108 (90 Base) MCG/ACT inhaler Inhale 2 puffs every 4 (four) hours. Active docusate sodium (Colace) 100 MG capsule Take by mouth every 12 (twelve) hours. Active hydrocortisone (Proctosol HC) 2.5 % rectal cream apply by topical route 4 times every day to the affected area(s) as needed for Hemorrhoids Active ondansetron (Zofran) 4 MG tablet Take 1 tablet by mouth in the morning and 1 tablet in the evening. Active SUMAtriptan (Imitrex) 50 MG tablet Take 1 tablet by mouth. Active acetaminophen (Tylenol) 500 MG tabletIndications:C hronic right shoulder pain,On statin therapy,Coronary arteriosclerosis take 1 tablet (500MG) by oral route every 6 hours as needed 90 tablet 11 Active bacitracin 500 UNIT/GM ointmentIndications :Wound of shoulder, right, initial encounter Apply topically 2 times daily. 14 g 023 Active melatonin 5 MG tablet Take 1 tablet (5 mg) by mouth if needed at bedtime (insomnia). 30 tablet 11 024 2024 Active dextran 70-hypromellose (artificial tears) 0.1-0.3 % ophthalmic solutionIndications :Dementia associated with other underlying disease, with anxiety, unspecified dementia severity (CMS/HCC) Administer 1 drop into both eyes if needed in the morning, at noon, and at bedtime for dry eyes. 15 mL 1 024 2024 Active amitriptyline (Elavil) 10 MG tablet TAKE 1 TABLET BY MOUTH AT BEDTIME 90 tablet 1 024 Active polyethylene glycol, PEG, 3350 (Glycolax) 17 GM/SCOOP powder TAKE 17 GM MIXED IN 8 OUNCES OF WATER, COFFEE OR TEA ONCE DAILY 510 g 1 024 Active clopidogrel (Plavix) 75 MG tablet TAKE 1 TABLET BY MOUTH EVERY MORNING 90 tablet 1 024 Active pantoprazole (ProtoNix) 40 MG EC tabletIndications:G astroesophageal reflux disease without esophagitis TAKE 1 TABLET BY MOUTH TWICE DAILY IN THE MORNING AND IN THE EVENING 180 tablet 1 024 Active atorvastatin (Lipitor) 40 MG tablet TAKE 1 TABLET BY MOUTH EVERY MORNING 90 tablet 1 024 Active mirtazapine (Remeron) 30 MG tabletIndications:M oderate dementia without behavioral disturbance, psychotic disturbance, mood disturbance, or anxiety, unspecified dementia type (CMS/HCC) TAKE 1 TABLET BY MOUTH AT BEDTIME 90 tablet 025 Active Oyster Shell Calcium + D3 500-10 MG-MCG tabletIndications:C losed nondisplaced fracture of right clavicle, unspecified part of clavicle, initial encounter,Osteoporo sis, unspecified osteoporosis type, unspecified pathological fracture presence TAKE 1 TABLET BY MOUTH TWICE DAILY IN THE MORNING AND IN THE EVENING 60 tablet 11 025 Active sertraline (Zoloft) 25 MG tabletIndications:M oderate dementia without behavioral disturbance, psychotic disturbance, mood disturbance, or anxiety, unspecified dementia type (CMS/HCC) Take 1 tablet (25 mg) by mouth in the morning. 30 tablet 025 Active metoprolol succinate XL (Toprol-XL) 25 MG 24 hr tablet Take 0.5 tablets (12.5 mg) by mouth Once per day. Do not crush or chew. 15 tablet 2 025 Active Calcium Carb-Cholecalcifero l (Calcium 500 +D) 500-10 MG-MCG tabletIndications:C losed nondisplaced fracture of right clavicle, unspecified part of clavicle, initial encounter,Osteoporo sis, unspecified osteoporosis type, unspecified pathological fracture presence Take 1 tablet by mouth 2 times daily. 60 tablet 11 023 2024 Discontinued metoprolol succinate XL (Toprol-XL) 25 MG 24 hr tablet TAKE 1 TABLET BY MOUTH EVERY MORNING 90 tablet 1 024 2024 Discontinued(M ed list cleanup (will not trigger notification to Pharmacy)) sertraline (Zoloft) 25 MG tabletIndications:M oderate dementia without behavioral disturbance, psychotic disturbance, mood disturbance, or anxiety, unspecified dementia type (CMS/HCC) TAKE 1 TABLET BY MOUTH EVERY MORNING 30 tablet 024 2024 Discontinued(R eorder (will not trigger notification to Pharmacy)) metoprolol succinate XL (Toprol-XL) 25 MG 24 hr tablet Take 12.5 mg by mouth Once per day. Do not crush or chew. 2024 Discontinued(R eorder (will not trigger notification to Pharmacy)) Active Problems Problem Noted Date Diagnosed Date 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 Ankle sprain 01/28/2024 COVID-19 01/28/2024 Distal radius fracture, right 01/28/2024 Gallstones 01/28/2024 HLD (hyperlipidemia) 01/28/2024 HTN (hypertension) 01/28/2024 Metacarpal bone fracture 01/28/2024 Ulnar shaft fracture 01/28/2024 Coronary artery disease 01/28/2024 NSTEMI (non-ST elevated myocardial infarction) 0 01/28/2024 Uterovaginal prolapse 01/28/2024 Category 0 low vision of left eye 09/13/2022 Chronic pain 09/13/2022 Nicotine dependence 09/13/2022 Cerebrovascular accident 06/19/2021 Chronic tension-type headache 02/11/2018 Migraine 08/31/2017 Rib pain 07/27/2017 Mixed stress and urge urinary incontinence 09/05 Dementia 01/28/2016 Illiteracy 01/28/2016 Knee pain 01/28/2016 Recurrent urinary tract infection 08/29/2013 Insomnia 02/27/2012 Mixed anxiety and depressive disorder 02/27/2012 Osteoporosis 02/27/2012 Uterine prolapse 02/27/2012 Asthma 10/05/1959 Resolved Problems Problem Noted Date Diagnosed Date Resolved Date Abnormal nuclear stress test 01/28/2024 01/28/2024 Incontinence 01/28/2024 01/28/2024 CVA, old, disturbances of vision 01/28/2024 01/28/2024 Coronary arteriosclerosis 09/13/2022 Decrease in appetite 09/13/2022 024 Myocardial infarction 09/13/20222023 Dyspnea 09/22/2018 01/28/2024 Headache 09/22/2018 01/28/2024 Swelling of structure of eye 09/22/2018 01/28/2024 Bacteriuria 02/11/2018 01/28/2024 Visual impairment 02/11/2018 01/28/2024 Dysuria 08/31/2017 01/28/2024 Acute otitis externa 07/27/2017 024 Urinary tract infectious disease 07/27/2017 01/28/2024 Pneumonia of both lungs due to infectious organism 01/12/2017 01/28/2024 Memory impairment 01/28/2016 01/28/2024 Impaired glucose tolerance 02/25/2013 0 01/28/2024 Stress incontinence, female 03/23/2012 01/28/2024 Constipation 02/27/2012 01/28/2024 Pure hypercholesterolemia 02/27/2012 Encounters Date Type Department Care Team Description 10/28/[address] [facility] [address] [place] [phone] Stef Greer MD Transition Of Care (Tcm) (HDF #2 - Unable to LV) 10/28/[address] [facility] [address] [place] [address] [phone] Stef Greer MD Durable Medical Equipment 10/28/[address] [facility] [address] [place] [address] [phone] Stef Greer MD Hospital Follow-up 10/26/[address] [facility] [address] [place] [phone] Stef Greer MD Transition Of Care (Tcm) (Unable to LVM ) 10/26/[address] [facility] [address] [facility] [place] [address] Jenna Mixon, PharmD 10/26/[address] [facility] [address] [place] [address] Jenna Mixon, PharmD 10/19/[address] [facility] [address] [facility] [place] [address] Stef Greer MD Closed nondisplaced fracture of right clavicle, unspecified part of clavicle, initial encounter; Osteoporosis, unspecified osteoporosis type, unspecified pathological fracture presence; Moderate dementia without behavioral disturbance, psychotic disturbance, mood disturbance, or anxiety, unspecified dementia type (CMS/HCC) 10/19/[address] [facility] [address] [place] [address] Britney Pollard DO Moderate dementia without behavioral disturbance, psychotic disturbance, mood disturbance, or anxiety, unspecified dementia type (CMS/HCC) 10/16/[address] [facility] [address] [facility] [place] [address] Stef Greer MD Moderate dementia without behavioral disturbance, psychotic disturbance, mood disturbance, or anxiety, unspecified dementia type (CMS/HCC) 08/25/[address] [facility] Kryst[facility] [place] [address] Demetrice Nelson MA Chart Prep 08/19/[address] [facility] [address] [place] [address] Huma Louie MD Hypokalemia (Primary Dx) 08/17/[address] [facility] [address] [facility] [place] [address] Stef Greer MD Moderate dementia without behavioral disturbance, psychotic disturbance, mood disturbance, or anxiety, unspecified dementia type (CMS/HCC) from Last 3 Months Immunizations Name Administration Dates Next Due Influenza High-dose Quadriva lent Preservative Free 07/24/2021 Influenza injectable quadriv alent IIV4 with preservative 07/27/2017,07/04/2015 Influenza injectable quadriv alent preservative free 08/13/2020,10/22/2018,08/20/2018 Influenza, High Dose Seasona l, Preservative Free 08/29/2019 Influenza, IIV3, injectable 07/06/2014, 1 Influenza, Split (incl. amee fied surface antigen) 06/28/2013 Influenza, seasonal, injecta ble, preservative free 09/22/2022,08/23/2014 Lanie SARS-CoV-2 Vaccination 01/09/2021 MMR 03/19/1998 Moderna Covid-19 Vaccine 12+ 02/25/2022 Pneumococcal Conjugate PCV 20 09/22/2022 Pneumococcal Polysaccharide PPSV23 08/23/2014, TD (adult), 2 Lf tetanus tox oid, preservative free, adsorbed 06/05/2003 Td (adult), 5 Lf tetanus tox oid, preservative free, adsorbed 08/03/2016 Tdap 03/30/2017 Zoster, Recombinant 05/14/2021,03/11/2021 Social History Tobacco Use Types Packs/Day Years Used Date Smoking Tobacco: Never Smokeless Tobacco: Current Chew Tobacco Cessation:Ready to Q uit: Not Asked; Counseling Given: Not Answered Alcohol Use Standard Drinks/Week Comments Never 0 [...] Orientation Straight 08/04/2022 10 :14 AM EDT Last Filed Vital Signs Vital Sign Reading Time Taken Comments Blood Pressure 107/69 08/01/2024 11:57 AM EDT Pulse 59 08/01/2024 11:57 AM EDT Temperature 35.6 ??C (96.1 ??F) 08/01/2024 11:57 AM E DT Respiratory Rate 20 08/01/2024 11:57 AM EDT Oxygen Saturation 98% 01/28/2024 10:41 AM EDT Inhaled Oxygen Concentration - - Weight 51.3 kg (113 lb) 08/01/2024 11:57 AM EDT Height 142.2 cm (4' 8 ) 08/01/2024 11:57 AM EDT Body Mass Index 25.33 08/01/2024 11:57 AM EDT Plan of Treatment Upcoming Encounters Date Type Department Care Team (Late st Contact Info) Description 12/05/2024 1:00 PM EST Office Visit [facility] [address] [place] [phone] Name, MD Stef [address] [place] [phone] Health Maintenance Due Date Last Done Comments Alcohol/Substance Use Screening 1952 RSV Patients and Patients Aged 60 years or older (1 - 1-dose 75+ series) 2015 COVID-19 Vaccine ( season) 2024 02/25/2022, 01/09/2021 Influenza Vaccine (#1) 2024 , 07/24/2021, 08/13/2020, Additional history exists Depression Screening 01/27/2025 01/28/2024, 01/28/20 SDOH Screening 01/27/2025 01/28/2024 Tobacco Screening 08/01/2025 08/01/2024 DTaP/Tdap/Td Vaccines (2 - Td or Tdap) 03/30/2027 03/30/2017, 08/03/2016, 06/05/2003 Lipid Panel 01/27/2029 01/28/2024, 12/03, 07/22/2021 Zoster Vaccines Completed 05/14/2021, 03/11/2021 Pneumococcal Vaccine: 50+ Years Completed 09/22/2022, 08/23/2014, 03/19/1998 HIB Vaccines Aged Out No longer eligi ble based on patient's age to complete this topic HPV Vaccines Aged Out No longer eligi ble based on patient's age to complete this topic Hepatitis A Vaccines Aged Out No long er eligible based on patient's age to complete this topic Hepatitis B Vaccines Aged Out No long er eligible based on patient's age to complete this topic IPV Vaccines Aged Out No longer eligi ble based on patient's age to complete this topic Meningococcal Vaccine Aged Out No melisa shiloh eligible based on patient's age to complete this topic RSV under 20 months Aged Out No longe r eligible based on patient's age to complete this topic Rotavirus Vaccines Aged Out No longer eligible based on patient's age to complete this topic Procedures Procedure Name Priority Date/Time Associated Diagnosis Comments BASIC METABOLIC PANEL Routine 08/18/2024 12:50 PM EST CBC WITH AUTO DIFFERENTIAL Routine 08/18/2024 12:50 PM EST LIPID PANEL, STANDARD Routine 01/28/2024 11:40 AM EDT Dementia associated with other underlying disease, with anxiety, unspecified dementia severity (CMS/HCC) Coronary artery disease involving [place] coronary artery of [place] heart without angina pectoris Other chronic pain Mixed stress and urge urinary incontinence from Last 3 Months or Most Recently Relevant to Health Maintenance Results * (ABNORMAL) CBC auto differential (08/18/2024 12:50 PM EST) White Blood Count 8.9 4.8 - 10.8 X10*3/uL [facility] Red Blood Count 4.11(L) 4.20 - 5.50 X10*6/uL [facility] Hemoglobin 13.4 12.0 - 16.0 g/dl [facility] Hematocrit 39.6 37.0 - 47.0 % [facility] Mean Corpuscular Volume 96.4 80.0 - 98.0 fL [facility] Mean Corpuscular Hemoglobin 32.6 27.0 - 33.0 pg [facility] Mean Corpuscular HGB Conc 33.8 31.0 - 35.0 g/dl [facility] Red Cell Distribution Width 14.7 11.0 - 16.0 % [facility] Platelet Count 421(H) 160 - 400 X10*3/uL [facility] Mean Platelet Volume 11.9 9.4 - 12.3 fL [facility] Neutrophils Percent Auto 58.4 45 - 73 % [facility] Imm Gran Pct Auto 0.2 0.0 - 0.4 % [facility] Lymphocytes Percent Auto 31.3 20 - 40 % [facility] Monocytes Percent Auto 8.7 2 - 11 % [facility] Eosinophils Percent Auto 1.1 0 - 4 % [facility] Basophils Percent Auto 0.3 0 - 2 % [facility] NRBC Pct Auto 0.0 0.0 - 0.2 /100WBC [facility] Neutrophils Absolute Auto 5.2 2.0 - 8.3 x10*3/uL [facility] Imm Gran Abs Auto 0.02 0.00 - 0.03 X10*3/uL [facility] Lymphocytes Absolute Auto 2.8 1.2 - 4.9 X10*3/uL [facility] Monocytes Absolute Auto 0.8 0.1 - 1.2 X10*3/uL [facility] Eosinophils Absolute Auto 0.1 0.0 - 0.4 X10*3/uL [facility] Basophils Absolute Auto 0.0 0.0 - 0.2 X10*3/uL [facility] NRBC Abs Auto 0.000 0.0 - 0.012 X10*3/uL [facility] 08/18/2024 12:5 0 PM EST 08/18/2024 1:44 PM EST us Stef Greer MD LAB BLOOD ORDERABLES Final Resul t Performing Organization Address [facility] [address]/[facility] Co de Phone Number [facility] [address] [place] [address] [phone] * (ABNORMAL) Basic Metabolic Panel (08/18/2024 12:50 PM EST) Sodium 141 135 - 145 mmol/L [facility] Potassium 3.2(L) 3.3 - 5.1 mmol/L [facility] Chloride 101 96 - 108 mmol/L [facility] Carbon Dioxide 29 22 - 29 mmol/L [facility] Anion Gap 14 12 - 20 [facility] Urea Nitrogen (BUN) 11 9 - 16 mg/dL [facility] Creatinine, Serum 0.74 0.5 - 1.4 mg/dL [facility] Estimated Glomerular Filt Rate >60 [facility] Comment:Chronic Kidney Disea se: Estimated GFR < 60 mL/min/1.39r7Pcwual Kidney Disease: Estimated GFR < 15 mL/min/1.73m2 Glucose 157(H) 60 - 115 mg/dL [facility] Calcium 10.1 8.4 - 10.2 mg/dL [facility] 08/18/2024 12:5 0 PM EST 08/18/2024 1:44 PM EST us Stef Greer MD LAB BLOOD ORDERABLES Final Resul t Performing Organization Address [facility] [address]/ZIP Co de Phone Number [facility] [address] [place] [address] [phone] * (ABNORMAL) Lipid Panel, Standard (01/28/2024 11:40 AM EDT) Triglycerides 265(H) <150 mg/dL [facility] Comment:Desirable Triglyceri de: less than 150 mg/dLBorderline High Triglyceride 150-199 mg/dLHigh Triglyceride: 200-499 mg/dLVery High Triglyceride: greater than or equal to 5OO mg/dL Cholesterol 212(H) <200 mg/dL [facility] Comment:Desirable Cholestero l: less than 200 mg/dLBorderline High Cholesterol: 200-239 mg/dLHigh Cholesterol: greater than 239 mg/dL LDL Cholesterol Calculated 122(H) <100 mg/dL [facility] Comment:Desirable LDL: less than 100 mg/dLNear Optimal/Above Optimal LDL: 110- 129 mg/dLBorderline High LDL: 130-159 mg/dLHigh LDL: 160-189 mg/dLVery High LDL: greater than or equal to 190 mg/dL HDL Cholesterol 37(L) >40 mg/dL [facility] Comment:Desirable HDL: great er than 40 mg/dL Note: This HDL assay may give artificially low results in patients with liver disease. Blood Venous blood specimen / Unknown 01/28/2024 11:40 AM EDT 01/28/2024 1:30 PM EDT us Stef Name LAB BLOOD ORDERABLES Final Resul t [facility] [address] [place], [place] [phone] from Last 3 Months or Most Recently Relevant to Health Maintenance Insurance [facility] Care Teams Collection Support Specialist Relationship Specialty Start Date End Date Name, MD Stef [address] [place] [phone] PCP - General Family Medicine 01/28/16 Yuliya Amrit 07/27/24
--- OUTSIDE RECORDS SUMMARY | 2024-11-16 16:37 | XMS_ITS | Encounter Summary ---
Author Organization [facility] Address [address] [facility] 7t [place] [address] Care Team Providers Care Recreation Coordinator Name Role Phone Name, Stef ESTRADA Primary Care Provider [phone] Encounter Details Date Type Department Care Team (Late st Contact Info) Description 11/12/2022 Telephone [facility] [address] [place] [address] [phone] NameStef MD [address] [place] [address] [phone] Social History Tobacco Use Types Packs/Day Years Used Date Smoking Tobacco: Never Smokeless Tobacco: Never Depression Answer Date Recorded Patient Health Questionnaire-9 Score 0 09/22/2022 Depression Answer Date Recorded Patient Health Questionnaire-2 Score 0 09/22/2022 Comments Unknown Sex and Gender Information Value Date Recorded Sex Assigned at Female 08/04/2022 10:14 AM EDT Legal Sex Female 10:14 AM EDT Gender Identity Female 08/04/2022 10:14 AM EDT Sexual Orientation Straight 08/04/2022 10 :14 AM EDT COVID-19 Exposure Response Date Recorded In the last 10 days, have yo u been in contact with someone who was confirmed or suspected to have Coronavirus/COVID-19? No / Unsure 10/22/2022 9:30 AM EST documented as of this encounter Plan of Treatment Upcoming Encounters Date Type Department Care Team ([facility] Contact Info) Description 12/05/2024 1:00 PM EST Office Visit [facility] [address] [place] [address] [phone] NameStef MD [address] [place] [address] [phone] documented as of this encounter Visit Diagnoses Not on filedocumented in this encounter Additional Health Concerns Assessment Noted Time PHQ-9 Depression Total Score: 0 09/22/20 22 10:00 AM EST documented as of this encounter Care Teams Recreation Coordinator Relationship Specialty Start Date End Date Name, MD Stef [address] [place] [address] PCP - General Family Medicine 01/28/16 Yuliya [facility] 07/27/24 documented as of this encounter
--- OUTSIDE RECORDS SUMMARY | 2024-11-16 16:37 | XMS_ITS | Encounter Summary ---
Author Organization [employer] Address [address] [facility] [address] [place] [address] Care Team Providers Care Fashion Buyer Name Role Phone Name, Stef ESTRADA Primary Care Provider [phone] Reason for Visit * Reason Comments Med Refill Encounter Details Date Type Department Care Team ([facility] st Contact Info) Description 10/16/2024 Refill [facility] [address] [place] [address] Name, MD Stef [address] [place] [address] Moderate dementia without behavioral disturbance, psychotic disturbance, mood disturbance, or anxiety, unspecified dementia type (CMS/HCC) Social History Tobacco Use Types Packs/Day Years [...] AM EDT documented as of this encounter Plan of Treatment Upcoming Encounters Date Type Department Care Team (Late st Contact Info) Description 12/05/2024 1:00 PM EST Office Visit [facility] [address] [place] [place] [phone] Name, MD Stef [address] [place] [phone] documented as of this encounter Visit Diagnoses Diagnosis Moderate dementia without behavioral disturbance, psychotic disturbance, mood disturbance, or anxiety, unspecified dementia type (CMS/HCC) documented in this encounter Additional Health Concerns Assessment Noted Time PHQ-9 Depression Total Score: 0 01/28/20 24 10:49 AM EDT documented as of this encounter Care Teams Fashion Buyer Relationship Specialty Start Date End Date Name, MD Stef [address] [place] [phone] PCP - General Family Medicine 01/28/16 Boyle A 07/27/24 documented as of this encounter
--- OUTSIDE RECORDS SUMMARY | 2024-11-16 16:37 | XMS_ITS | Encounter Summary ---
Author Organization [employer] Address [address] [facility] [address] 7[address] [place] [address] Care Team Providers Care Nurse Chemical Dependency Name Role Phone Name, Stef ESTRADA Primary Care Provider [phone] Reason for Visit * Reason Comments Med Refill Encounter Details Date Type Department Care Team ([facility] st Contact Info) Description 10/19/2024 Refill [facility] [address] [place] [address] Name, MD Stef [address] [place] [address] Closed nondisplaced fracture of right clavicle, unspecified part of clavicle, initial encounter; Osteoporosis, unspecified osteoporosis type, unspecified pathological fracture presence; Moderate dementia without behavioral disturbance, psychotic disturbance, mood disturbance, or anxiety, unspecified dementia type (CMS/[facility]) Social History Tobacco Use Types Packs/Day Years [...] Description 12/05/2024 1:00 PM EST Office Visit [facility] [address] [place] [phone] Name, MD Stef [address] [place] [phone] documented as of this encounter Visit Diagnoses Diagnosis Closed nondisplaced fracture of right clavicle, unspecified part of clavicle, initial encounter Osteoporosis, unspecified osteoporosis type, unspecified pathological fracture presence Moderate dementia without behavioral disturbance, psychotic disturbance, mood disturbance, or anxiety, unspecified dementia type (CMS/HCC) documented in this encounter Additional Health Concerns Assessment Noted Time PHQ-9 Depression Total Score: 0 01/28/20 10:49 AM EDT documented as of this encounter Care Teams Nurse Chemical Dependency Relationship Specialty Start Date End Date Name, MD Stef [address] [place] [phone] PCP - General Family Medicine 01/28/16 Yuliya ALFRED 07/27/24 documented as of this encounter
--- OUTSIDE RECORDS SUMMARY | 2024-11-16 16:37 | XMS_ITS | Encounter Summary ---
Author Organization [employer] Address [address] 7[address] [place] [address] Care Team Providers Care Taper Printed Circuit Layout Name Role Phone Name, Stef ESTRADA Primary Care Provider [phone] Reason for Visit * Reason Onset Date Comments Nurse Triage 03/13/2023 Encounter Details Date Type Department Care Team ([facility] st Contact Info) Description 03/13/2023 Telephone [facility] [address] [place], [place] [phone] Name, MD Stef [address] [place] [address] Nurse Triage Social History Tobacco Use Types Packs/Day Years [...] t he electric, gas, oil or water [employer] threatened to shut off services in your [...] encounter Miscellaneous Notes * Telephone Encounter - Cheyenne [place] RN - 03/13/2023 8:59 AM EDT called pt to triage, spoke to granddaughter. states pt had TB testing about a week ago, and they have not heard anything. states pt needs the results for a daycare program. Granddaughter also states pt having headaches mostly behind eyes and requesting referral to eyecare. Granddaughter denies blurred vision, severe vision impairment, nausea, other illness symptoms or fevers. advised home care: rest, fluids, cool compresses, OTC pain reliever as needed, rest eyes, and call back if worsening or new concerns. given appt 03/20 at 1:45 with Lisa Weston/Dr. Greer precepting. advised will task to team nurses to call back regarding results. Granddaughter understands and agrees with plan. insurance verified. Protocol Used: Headache (Adult) Protocol-Based Disposition: See in Office or Video Visit within 2 Weeks Video visit offer not recorded Positive Triage Questions: * Headache is a chronic symptom (recurrent or ongoing AND lasting > 4 weeks) * Mild-moderate headache * All higher-acuity triage questions were negative Care Advice Discussed: * Pain Medicines * Rest * Apply Cold to the Area * Reasons To Call Back - You become worse * Telephone Encounter - Barber Morgan - 03/13/2023 8:32 AM EDT Symptom: Headache Outcome: Schedule an urgent appointment (within 4 hours) or talk to a nurse or provider soon Reason: Getting worse The caller accepted this outcome Please contact at [phone] Frisian documented in this encounter Plan of Treatment Upcoming Encounters Date Type Department Care Team (Late st Contact Info) Description 12/05/2024 1:00 PM EST Office Visit [facility] [address] [place] [address] Name, MD Stef [address] [place] [address] documented as of this encounter Visit Diagnoses Not on filedocumented in this encounter Additional Health Concerns Assessment Noted Time PHQ-9 Depression Total Score: 0 09/22/20 10:00 AM EST documented as of this encounter Care Teams Taper Printed Circuit Layout Relationship Specialty Start Date End Date Name, MD Stef [address] [place] [address] PCP - General Family Medicine 01/28/16 Yuliya Amrit 07/27/24 documented as of this encounter
--- OUTSIDE RECORDS SUMMARY | 2024-11-16 16:37 | XMS_ITS | Encounter Summary ---
Author Organization [employer] Address [address] 7t [place] [address] Care Team Providers Care Slab Inspector Name Role Phone Name, Stef ESTRADA Primary Care Provider [phone] Reason for Visit * Reason Comments Transition Of Care (Tcm) HDF #2 - Unable to LVM Encounter Details Date Type Department Care Team ([facility] st Contact Info) Description 10/28/2024 Patient Outreach [facility] [address] [place] [address] Name, MD Stef 230 [place] [address] Transition Of Care (Tcm) (HDF #2 - Unable to LVM) Social History Tobacco Use Types Packs/Day Years [...] * Significant Event - Ant Sargent - 10/28/2024 1:08 PM EST 10/28/24 1307 Hospital Discharges and Admission for [facility] Type of Visit Hospital Admission Date of Admission/Visit 10/18/24 Date of Discharge 10/20/24 Facility [facility] Medical Diagnosis Acute UTI Disposition Discharged Home Follow-Up Actions Follow-Up Needed Provider appointment Follow-Up Outcome No Answer/No VM Initial Contact Date 10/28/24 CC Ant Brody placed second outbound call to patient for HDF outreach. CC placing call to offer patient with an HDF appointment with provider. No answer at this time. Patient's name and were not confirmed. CC was unable to leave a voicemail at this time. Will wait for patient to contact facility. documented in this encounter Plan of Treatment Upcoming Encounters Date Type Department Care Team (Late st Contact Info) Description 12/05/2024 1:00 PM EST Office Visit [facility] [address] [place] [address] Name, MD Stef [address] [place] [address] documented as of this encounter Visit Diagnoses Not on filedocumented in this encounter Additional Health Concerns Assessment Noted Time PHQ-9 Depression Total Score: 0 01/28/20 10:49 AM EDT documented as of this encounter Care Teams Slab Inspector Relationship Specialty Start Date End Date Name, MD Stef 230 [facility] [place] [address] PCP - General Family Medicine 01/28/16 Yuliya [place] 07/27/24 documented as of this encounter
--- OUTSIDE RECORDS SUMMARY | 2024-11-16 16:37 | XMS_ITS | Encounter Summary ---
Author Organization [employer] Address [address] [place] [address] Care Team Providers Care Health Technician Name Role Phone Name, Stef ESTRADA Primary Care Provider [phone] Reason for Visit * Reason Onset Date Comments r/s sick visit 03/20/2023 Encounter Details Date Type Department Care Team ([facility] st Contact Info) Description 03/20/2023 Telephone [facility] MEDICINE [address] [place], [place] [phone] Name, MD Stef [address] [place] [address] r/s sick visit Social History Tobacco Use Types Packs/Day Years [...] encounter Miscellaneous Notes * Telephone Encounter - Valentina Lopez RN - 03/20/2023 11:00 AM EDT Called pt. Granddaughter to reschedule sick appt. Pt. Wanted referral to eye And needs a refillon the miralax. Appt. Made and will see if can refill Miralax. If not, advised pt. Granddaughter that she can buy Miralax OTC. Appt. Rescheduled for 03/27/23 at 1045am. Looks like MiraLax was prescribed on 03/05/23 and pt. Does get med box. Granddaughter states pharmacystated the Polyethylene glycol was not available and a message was sent to PCP. Pt. Not due according to pharmacy until 03/18/23 buit today is 03/20/23. Will send to PCP to have team nurse look into status with [facility] pharmacy. * Telephone Encounter - Barber Morgan - 03/20/2023 10:37 AM EDT Tc from pt grandchild requesting to r/s sick visit scheduled for 03/20/[address] Weston. Please contact at [phone] Italian documented in this encounter Plan of Treatment Upcoming Encounters Date Type Department Care Team (Late st Contact Info) Description 12/05/2024 1:00 PM EST Office Visit [facility] MEDICINE [address] [address] Name, MD Stef [address] [place] [address] [place] [address] documented as of this encounter Visit Diagnoses Not on filedocumented in this encounter Additional Health Concerns Assessment Noted Time PHQ-9 Depression Total Score: 0 09/22/20 22 10:00 AM EST documented as of this encounter Care Teams Health Technician Relationship Specialty Start Date End Date Name, MD Stef [address] [place] [address] PCP - General Family Medicine 01/28/16 Yuliya ALFRED 07/27/24 documented as of this encounter
--- OUTSIDE RECORDS SUMMARY | 2024-11-16 16:37 | XMS_ITS | Encounter Summary ---
Author Organization [employer] Address [address] 7[address] [place] [address] Care Team Providers Care Superintendent Recreation Name Role Phone Name, Stef ESTRADA Primary Care Provider [phone] Reason for Visit * Reason Onset Date Comments FYI 08/10/2024 Encounter Details Date Type Department Care Team ([facility] Contact Info) Description 08/10/2024 Telephone [facility]INE 230 [place], [place] [phone] Name, MD Stef [address] [place] [address] FYI Social History Tobacco Use Types Packs/Day Years [...] encounter Miscellaneous Notes * Telephone Encounter - Reha Narvaez RN - 08/10/2024 4:44 PM EST Noted * Telephone Encounter - Barber Morgan - 08/10/2024 4:33 PM EST Tc from [facility] sylvie ALFRED would like to inform PCP that they have resumed PT care services for pt. Advised will forward message as FYI, if any questions please contact at [phone] documented in this encounter Plan of Treatment Upcoming Encounters Date Type Department Care Team (Late st Contact Info) Description 12/05/2024 1:00 PM EST Office Visit [facility] MED[facility]INE [address] [place] [address] Name, MD Stef [address] [place] [address] documented as of this encounter Visit Diagnoses Not on filedocumented in this encounter Additional Health Concerns Assessment Noted Time PHQ-9 Depression Total Score: 0 01/28/20 10:49 AM EDT documented as of this encounter Care Teams Superintendent Recreation Relationship Specialty Start Date End Date Stef Greer MD [address] [place] [address] PCP - General Family Medicine 01/28/16 Yuliya ALFRED 07/27/24 documented as of this encounter
--- OUTSIDE RECORDS SUMMARY | 2024-11-16 16:37 | XMS_ITS | Encounter Summary ---
Author Organization [employer] Address [address] 7t [place] [address] Care Team Providers Care Rn Radiation Oncology Name Role Phone Name, Stef ESTRADA Primary Care Provider [phone] Reason for Visit * Reason Onset Date Comments Hospital Follow-up 10/28/2024 Encounter Details Date Type Department Care Team ([facility] st Contact Info) Description 10/28/2024 Telephone [facility] MED[facility]INE 230 [place], [place] [phone] Name, MD Stef 230 [place] [address] Hospital Follow-up Social History Tobacco Use Types Packs/Day Years [...] encounter Miscellaneous Notes * Telephone Encounter - Carlo Carroll - 10/28/2024 12:28 PM EST Tc from pt requesting a [employer] appt. Hospital: [facility] Date of admission: 10/18 Discharge date: 10/20 Diagnosed: Gastritis and UTI Huma states that Pt son told her that they should hold med clopidogrel (Plavix) 75 MG tablet Due to pt having bad Gastritis. Huma said that she looked at the Notes from the Hospital and there is nothing about holding them on the Notes. *Send message to [facility] Coordinators Contact VISCOS[employer] TESTER to Schedule pt [phone] documented in this encounter Plan of Treatment Upcoming Encounters Date Type Department Care Team (Late st Contact Info) Description 12/05/2024 1:00 PM EST Office Visit [facility] MEDICINE [address] [place] [address] Name, MD Stef [address] [place] [address] documented as of this encounter Visit Diagnoses Not on filedocumented in this encounter Additional Health Concerns Assessment Noted Time PHQ-9 Depression Total Score: 0 01/28/20 10:49 AM EDT documented as of this encounter Care Teams Rn Radiation Oncology Relationship Specialty Start Date End Date NameStef MD [address] [place] [address] PCP - General Family Medicine 01/28/16 [facility] documented as of this encounter
--- OUTSIDE RECORDS SUMMARY | 2024-11-16 16:37 | XMS_ITS | Encounter Summary ---
Author Organization [employer] Address [address] 7t [place] [address] Care Team Providers Care City Route Driver Name Role Phone Name, Stef ESTRADA Primary Care Provider [phone] Reason for Visit * Reason Comments Med Refill Encounter Details Date Type Department Care Team ([facility] st Contact Info) Description 10/19/[address] [facility] MEDICINE [address] [place], [place] [phone] Britney Pollard DO 230 [place], [place] [phone] Moderate dementia without behavioral disturbance, psychotic disturbance, [...] Description 12/05/2024 1:00 PM EST Office Visit [facility] MEDICINE [address] [place] [address] Name, MD Stef [address] [place] [address] documented as of this encounter Visit Diagnoses Diagnosis Moderate dementia without behavioral disturbance, psychotic disturbance, mood disturbance, or anxiety, unspecified dementia type (CMS/HCC) documented in this encounter Additional Health Concerns Assessment Noted Time PHQ-9 Depression Total Score: 0 01/28/20 24 10:49 AM EDT documented as of this encounter Care Teams City Route Driver Relationship Specialty Start Date End Date Name, MD Stef [address] [place] [address] PCP - General Family Medicine 01/28/16 [facility] 07/27/24 documented as of this encounter
[2024-11-16 16:56] LABS: Appearance Urine Turbid; Color Urine Yellow; Glucose Urine UA Negative (Negative); Leukocyte Esterase Urine Large (3+) (Negative); Nitrite Urine Positive (Negative); UMIC TRIGGER UACC YES; Urine Blood Large (3+) (Negative); Urine Ketones 15 mg/dL (Negative); Urine Protein 30 (1+) mg/dL (Neg-Trace)
[2024-11-16 16:59] LABS: Basophils Percent Auto 0.3 % (0-2); Eosinophils Absolute Auto 0.1 X10*3/uL (0.0-0.4); Eosinophils Percent Auto 0.8 % (0-4); Hematocrit 38.9 % (37.0-47.0); Hemoglobin 13.7 g/dl (12.0-16.0); Imm Gran Abs Auto 0.02 X10*3/uL (0.00-0.03); Imm Gran Pct Auto 0.2 % (0.0-0.4); Lymphocytes Absolute Auto 3.5 X10*3/uL (1.2-4.9); Lymphocytes Percent Auto 40.5 % (20-40); Mean Corpuscular HGB Conc 35.2 g/dl (31.0-35.0); Mean Corpuscular Volume 93.7 fL (80.0-98.0); Mean Platelet Volume 11.3 fL (9.4-12.3); Monocytes Absolute Auto 0.8 X10*3/uL (0.1-1.2); Neutrophils Absolute Auto 4.3 x10*3/uL (2.0-8.3); Neutrophils Percent Auto 49.2 % (45-73); Platelet Count 305 X10*3/uL (160-400); Red Blood Count 4.15 X10*6/uL (4.20-5.50); Red Cell Distribution Width 14.1 % (11.0-16.0); White Blood Count 8.7 X10*3/uL (4.8-10.8)
[2024-11-16 17:04] LABS: Bacteria Urine 3+ (None Seen); RBC Urine >20 /HPF (0-2); UACC Culture Trigger YES; WBC Urine >50 /HPF (0-5)
[2024-11-16 17:11] VITALS: BP 123/66; PULSE 78; RESP 12; O2SAT 93
[2024-11-16 17:15] LABS: Alanine Aminotransferase 7 U/L (0-31); Albumin Level 3.4 g/dL (3.5-5.0); Alkaline Phosphatase 61 U/L (39-117); Anion Gap 14 (12-20); Aspartate Amino Transferase 30 U/L (5-31); Bilirubin Direct 0.1 mg/dL (0.0-0.5); Bilirubin Total 0.5 mg/dL (0.0-1.0); Blood Urea Nitrogen 12 mg/dL (9-16); C Reactive Protein 0.69 mg/dL (< or = 0.50); Calcium 8.9 mg/dL (8.4-10.2); Carbon Dioxide 23 mmol/L (22-29); Chloride 101 mmol/L (96-108); Creatinine Clr Calc Pharmacy 40.4; Estimated Glomerular Filt Rate > 60; Glucose Random 117 mg/dL (60-115); Lipase 28 U/L (8-78); Magnesium 1.8 mg/dL (1.6-2.6); Potassium 3.2 mmol/L (3.3-5.1); Sodium 135 mmol/L (135-145); Total Protein 7.2 g/dL (6.5-8.0)
[2024-11-16 17:22] LABS: Troponin-I High Sensitivity 28.5 ng/L (<3.5-17.0)
[2024-11-16 18:39] LABS: Troponin-I High Sensitivity 26.6 ng/L (<3.5-17.0)
[2024-11-16 19:30] VITALS: BP 132/65; PULSE 68; RESP 18; TEMP 36.9; O2SAT 96
--- NOTE | 2024-11-16 19:37 | MHC.EDTECH ---
checked patients vitals, patient resting comfortably at this time.
--- NOTE | 2024-11-16 19:54 | PC.NURSE ---
head of advertising at bedside and pt is refusing her medictions provider made aware.
[2024-11-16] MEDS: cefTRIAXone sodium 1 GM VIAL IVPUSH (20:30)
[2024-11-16 22:43] VITALS: BP 120/63; PULSE 67; RESP 16; TEMP 36.6; O2SAT 95
[2024-11-16 23:01] VITALS: BP 120/63; PULSE 67; RESP 16; TEMP 36.6; O2SAT 95
== END 2024-11-16 23:03 | disposition home or self-care (01) ==
PROVIDERS: Emergency Medicine; Emergency Provider Emergency Medicine; PCP Internal Medicine Geriatric Medicine
DX: N39.0 Urinary tract infection, site not specified (principal); U07.1 COVID-19; K29.00 Acute gastritis without bleeding; R10.9 Unspecified abdominal pain; R11.2 Nausea with vomiting, unspecified; R94.31 Abnormal electrocardiogram [ECG] [EKG]; F03.90 Unspecified dementia, unspecified severity, without behavioral disturbance, psychotic disturbance, mood disturbance, and anxiety; F17.220 Nicotine dependence, chewing tobacco, uncomplicated; Z79.899 Other long term (current) drug therapy
CPT/HCPCS: 0241U; 36415; 71045; 80048; 80076; 81001; 83690; 83735; 84484; 85025; 86140; 87086; 87088; 87186; 93005; 96374; 99284; J0696

== ENCOUNTER → 2024-11-16 15:24 | Outpatient (BNV) | payer OTHER, SELFPAY | PROVIDERS: Emergency Provider Emergency Medicine; PCP Internal Medicine Geriatric Medicine; Visit Provider Radiology Diagnostic Radiology | DX: R07.9 Chest pain, unspecified (principal) | CPT/HCPCS: 71045 ==

== ENCOUNTER → 2024-11-16 15:24 | Outpatient (BNV) | payer OTHER, SELFPAY | PROVIDERS: Emergency Provider Emergency Medicine; PCP Internal Medicine Geriatric Medicine; Visit Provider Internal Medicine Cardiovascular Disease | DX: R94.31 Abnormal electrocardiogram [ECG] [EKG] (principal); R10.9 Unspecified abdominal pain | CPT/HCPCS: 93010 ==

== ENCOUNTER 2024-11-25 07:38 | Outpatient (AMB) | payer OTHER, SELFPAY ==
--- OUTSIDE RECORDS SUMMARY | 2024-11-25 07:39 | XMS_ITS | Encounter Summary ---
Author Organization [employer] Address [address] [place] [address] Care Team Providers Care Forensic Nurse Name Role Phone Name, Stef ESTRADA Primary Care Provider [phone] Encounter Details Date Type Department Care Team ([facility] st Contact Info) Description 10/26/2024 Telephone [facility] MEDICINE 230 [place], [place] [phone] Jenna Mixon, VikasD 230 [place] [address] Social History Tobacco Use Types Packs/Day Years [...] 10/26/2024 3:47 PM EST Patient discharged from [facility] on 10/20/24. Please outreach patient to schedule HDF. Thank you documented in this encounter Plan of Treatment Upcoming Encounters Date Type Department Care Team (Late st Contact Info) Description 12/05/2024 1:00 PM EST Office Visit [facility] MEDICINE [address] [place] [address] Name, MD Stef 230 [place] [address] documented as of this encounter Visit Diagnoses Not on filedocumented in this encounter Additional Health Concerns Assessment Noted Time PHQ-9 Depression Total Score: 0 01/28/20 24 10:49 AM EDT documented as of this encounter Care Teams Forensic Nurse Relationship Specialty Start Date End Date NameStef MD [address] [place] [address] PCP - General Family Medicine 01/28/16 Yuliya Amrit 07/27/24 documented as of this encounter
--- OUTSIDE RECORDS SUMMARY | 2024-11-25 07:39 | XMS_ITS | Encounter Summary ---
Author Organization [employer] Address [address] 7[address] [place] [address] Care Team Providers Care Overcoiler Name Role Phone Name, Stef ESTRADA Primary Care Provider [phone] Reason for Visit * Reason Onset Date Comments Durable Medical Equipment 10/28/2024 Encounter Details Date Type Department Care Team ([facility] st Contact Info) Description 10/28/2024 Telephone [facility] MEDICINE 230 [place], [place] [phone] Name, MD Stef 230 [place] [address] Durable Medical Equipment Social History Tobacco Use [...] for bed rails signed and faxed to [facility]. Confirmation received and sent to [facility]. If patient calls to check status on above, please advise them to contact [facility] healthcare educator . * Telephone Encounter - Elizabeth Chicas - 10/31/2024 10:12 AM EST DME RX for bed rails generated and placed on providers desk for signature. * Telephone Encounter - Carlo Carroll - 10/28/2024 12:35 PM EST Tc magdalene Cody [facility] Nurse stating that Pt is requesting Bed rails so that pt dosent Roll of the Bedand hurt Herself. Contact pt Son at [phone] documented in this encounter Plan of Treatment Upcoming Encounters Date Type Department Care Team (Late st Contact Info) Description 12/05/2024 1:00 PM EST Office Visit [facility] MEDICINE 230 [place] [address] Name, MD Stef 230 [place] [address] documented as of this encounter Visit Diagnoses Not on filedocumented in this encounter Additional Health Concerns Assessment Noted Time PHQ-9 Depression Total Score: 0 01/28/20 10:49 AM EDT documented as of this encounter Care Teams Overcoiler Relationship Specialty Start Date End Date Name, MD Stef 230 [place] [address] PCP - General Family Medicine 01/28/16 Yuliya [facility] 07/27/24 documented as of this encounter
--- OUTSIDE RECORDS SUMMARY | 2024-11-25 07:39 | XMS_ITS | Encounter Summary ---
Author Organization [employer] Address [address] 7[address] [place] [address] Care Team Providers Care Health And Safety Director Name Role Phone Name, Stef ESTRADA Primary Care Provider Reason for Visit * Reason Comments Transition Of Care (Tcm) Unable to LVM Encounter Details Date Type Department Care Team ([facility] st Contact Info) Description 10/26/2024 Patient Outreach [facility]INE 230 [place] [address] Name, MD Stef 230 [place] [address] Transition Of Care (Tcm) (Unable to LVM [...] of Admission/Visit 10/18/24 Date of Discharge 10/20/24 [facility] Diagnosis Acute UTI Disposition Discharged Home Follow-Up [...] Description 12/05/2024 1:00 PM EST Office Visit [facility]INE [address] [place] [address] Name, MD Stef [address] [place] [address] documented as of this encounter Visit Diagnoses Not on filedocumented in this encounter Additional Health Concerns Assessment Noted Time PHQ-9 Depression Total Score: 0 01/28/20 24 10:49 AM EDT documented as of this encounter Care Teams Health And Safety Director Relationship Specialty Start Date End Date Name, MD Stef [address] [place] [address] PCP - General Family Medicine 01/28/16 Yuliya ALFRED 07/27/24 documented as of this encounter
--- OUTSIDE RECORDS SUMMARY | 2024-11-25 07:39 | XMS_ITS | Encounter Summary ---
Author Organization [employer] Address [address] 7[address] [place] [address] Care Team Providers Care Global Marketing Coordinator Name Role Phone Name, Stef ESTRADA Primary Care Provider [phone] Reason for Visit * Reason Comments Med Refill Encounter Details Date Type Department Care Team ([facility] st Contact Info) Description 11/20/2024 Refill [facility] MED[facility]INE 230 [place] [address] Name, MD Stef 230 [place] [address] Social History Tobacco Use Types Packs/Day Years [...] Description 12/05/2024 1:00 PM EST Office Visit [facility] MEDICINE [address] [place] [address] Name, MD Stef [address] [place] [address] documented as of this encounter Visit Diagnoses Not on filedocumented in this encounter Additional Health Concerns Assessment Noted Time PHQ-9 Depression Total Score: 0 01/28/20 10:49 AM EDT documented as of this encounter Care Teams Global Marketing Coordinator Relationship Specialty Start Date End Date Name, MD Stef [address] [place] [address] PCP - General Family Medicine 01/28/16 Yuliya ALFRED 07/27/24 documented as of this encounter
--- OUTSIDE RECORDS SUMMARY | 2024-11-25 07:39 | XMS_ITS | Encounter Summary ---
Author Organization [employer] Address [address] [place] [address] Care Team Providers Care Montessori Preschool Teacher Name Role Phone Name, Stef ESTRADA Primary Care Provider [phone] Encounter Details Date Type Department Care Team (Late st Contact Info) Description 11/16/2024 Orders Only GENERIC EXTERNAL DATA DEPARTMENT Provider, Generic External Data Social History Tobacco Use Types Packs/Day Years [...] Description 12/05/2024 1:00 PM EST Office Visit [facility] [address] [place] [address] Name, MD Stef [address] [place] [address] documented as of this encounter Procedures Procedure Name Priority Date/Time Associated Diagnosis Comments HIGH SENSITIVITY TROPONIN I Routine 11/16/2024 6:11 PM EST CULTURE, URINE, ROUTINE Routine 11/16/2024 5:04 PM EST HOLD LAVENDER - POSSIBLE HEMATOLOGY Routine 11/16/2024 4:29 PM EST HIGH SENSITIVITY TROPONIN I Routine 11/16/2024 4:29 PM EST HOLD LT BLUE - POSSIBLE COAG Routine 11/16/2024 4:29 PM EST URINALYSIS, COMPLETE, WITH REFLEX TO CULTURE Routine 11/16/2024 4:29 PM EST documented in this encounter Results * (ABNORMAL) High Sensitivity Troponin I (11/16/2024 6:11 PM EST) TROPONIN I HIGH SENSITIVITY 26.6(H) <3.5 - 17.0 ng/L [facility] Comment:The Lal high sens itivity Troponin-I results should beused in conjunction with other diagnostic information suchas ECG, clinical observations and information, and patientsymptoms to aid in the diagnosis of ID. 11/16/2024 6:11 PM EST 11/16/2024 6:12 PM EST us Generic External Data Provider LAB BLOOD ORDERAB LES Final Result Performing Organization Address [facility] Co de Phone Number [facility] [address] [place] [phone] * Culture, Urine, Routine (11/16/2024 5:04 PM EST) Urine Urine specimen from urinary conduit / Unknown 11/16/2024 5:04 PM EST 11/16/2024 5:04 PM EST Comment:Urine Cath Narrative [facility] - 11/18/2024 8:46 AM EST Klebsiella pneumoniae Quant > 100,000 cfu/mL Klebsiella pneumoniae: Ampicillin >=32(R) Klebsiella pneumoniae: Cefazolin >=32(R) Klebsiella pneumoniae: Cefepime <=0.12(S) Klebsiella pneumoniae: Ceftriaxone <=0.25(S) Klebsiella pneumoniae: Ciprofloxacin <=0.06(S) Klebsiella pneumoniae: Gentamicin <=1(S) Klebsiella pneumoniae: Nitrofurantoin 64(I) Klebsiella pneumoniae: Trimethoprim/Sulfamethoxazole <=20(S) Specimen Source: Urine Catheterized Generic External Data Provider LAB MICROBIOLOGY - GENERAL ORDERABLES Final Result Performing Organization Address [facility] de Phone Number [facility] [address] [place] [phone] * (ABNORMAL) High Sensitivity Troponin I (11/16/2024 4:29 PM EST) TROPONIN I HIGH SENSITIVITY 28.5(H) <3.5 - 17.0 ng/L [facility] Comment:The Lal high sens itivity Troponin-I results should beused in conjunction with other diagnostic information suchas ECG, clinical observations and information, and patientsymptoms to aid in the diagnosis of ID. 11/16/2024 4:29 PM EST 11/16/2024 4:50 PM EST Generic External Data Provider LAB BLOOD ORDERAB LES Final Result Performing Organization Address [facility] Co de Phone Number [facility] [address] [place] [phone] * (ABNORMAL) Urinalysis, Complete, with Reflex to Culture (11/16/2024 4:29 PM EST) Color Urine Yellow [facility] Appearance Urine Turbid [facility] PH 7.0 5.0 - 9.0 [facility] Glucose Urine UA Negative Negative mg/dL [facility] Urine Blood Large (3+)(A) Negative [facility] Specific [place] - Urine 1.020 1.005 - 1.025 [facility] Urine Protein 30 (1+)(A) Neg-Trace mg/dL [facility] Urine Ketones 15 Negative mg/dL [facility] Nitrite Urine Positive(A) Negative [facility] Leukocyte Esterase Urine Large (3+)(A) Negative [facility] RBC Urine >20(A) 0 - 2 /HPF [facility] Urine WBC >50(A) 0 - 5 /HPF [facility] Urine Squamous Epithelial Cell 6-10 0 - 2 /HPF [facility] Urine Bacteria 3+ None Seen [facility] Hyaline Casts, Urine 6-10 0 - 2 /LPF [facility] 11/16/2024 4:29 PM EST 11/16/2024 4:50 PM EST Narrative [facility] - 11/16/2024 5:04 PM EST Urine, Catheterized us Generic External Data Provider LAB URINE ORDERAB LES Final Result [facility] [address] [place] [phone] * Hold Lavender - Possible Hematology (11/16/2024 4:29 PM EST) Hold Lavender - Possible Hematololgy SEE NOTE [facility] Comment:Specimen will be hel d untested for 8 hours. Call Hematologyif testing is desired. 11/16/2024 4:29 PM EST 11/16/2024 4:52 PM EST us Generic External Data Provider HISTORICAL/NON OR DERABLE LABS Final Result Performing Organization Address [facility]/ZIP Co de Phone Number [facility] [address] [place] [phone] * HOLD LT BLUE - POSSIBLE COAG (11/16/2024 4:29 PM EST) Hold Lt Blue - Possible Coag SEE NOTE [facility] Comment:Specimen will be hel d untested for 4 hours. Call Hematologyif testing is desired. 11/16/2024 4:29 PM EST 11/16/2024 4:52 PM EST us Generic External Data Provider LAB BLOOD ORDERAB LES Final Result Performing Organization Address [facility] Co de Phone Number [facility] [address] [place] [phone] documented in this encounter Visit Diagnoses Not on filedocumented in this encounter Additional Health Concerns Assessment Noted Time PHQ-9 Depression Total Score: 0 01/28/20 10:49 AM EDT documented as of this encounter Care Teams Montessori Preschool Teacher Relationship Specialty Start Date End Date Name, MD Stef [address] [place] [address] PCP - General Family Medicine [facility] documented as of this encounter
--- OUTSIDE RECORDS SUMMARY | 2024-11-25 07:39 | XMS_ITS | Encounter Summary ---
Author Organization [facility] Address [address] [facility] [address] [facility] 7t [place] [address] Care Team Providers Care Collections Clerk Name Role Phone Name, Stef ESTRADA Primary Care Provider [phone] Encounter Details Date Type Department Care Team (Late st Contact Info) Description 11/12/2022 Telephone [facility] [address] [place] [address] [phone] NameStef MD [address] [place] [address] [phone] Social History Tobacco Use Types Packs/Day Years [...] Upcoming Encounters Date Type Department Care Team ([facility] Contact Info) Description 12/05/2024 1:00 PM EST Office Visit [facility] [address] [place] [address] [phone] NameStef MD [address] [place] [address] [phone] documented as of this encounter Visit Diagnoses Not on filedocumented in this encounter Additional Health Concerns Assessment Noted Time PHQ-9 Depression Total Score: 0 09/22/20 22 10:00 AM EST documented as of this encounter Care Teams Collections Clerk Relationship Specialty Start Date End Date Name, MD Stef [address] [facility] [place] [address] PCP - General Family Medicine 01/28/16 Yuliya [facility] 07/27/24 documented as of this encounter
--- OUTSIDE RECORDS SUMMARY | 2024-11-25 07:39 | XMS_ITS | Encounter Summary ---
Author Organization [employer] Address [address] [place] [address] Care Team Providers Care Oral Therapist Name Role Phone Name, Stef ESTRADA Primary Care Provider [phone] Reason for Visit * Reason Onset Date Comments r/s sick visit 03/20/2023 Encounter Details Date Type Department Care Team ([facility] st Contact Info) Description 03/20/[address] [facility] MEDICINE [address] [place], [place] [phone] Name, MD Stef [address] [place] [address] r/s sick visit Social History Tobacco Use [...] have team nurse look into status with [facility] pharmacy. * Telephone Encounter - Barber Morgan - 03/20/2023 10:37 AM EDT Tc from pt grandchild requesting to r/s sick visit scheduled for 03/20/[address] Weston. Please contact at [phone] Sinhala documented in this encounter Plan of Treatment Upcoming Encounters Date Type Department Care Team (Late st Contact Info) Description 12/05/2024 1:00 PM EST Office Visit [facility] MEDICINE [address] [place] [phone] Name, MD Stef [address] [place] [address] [place] [address] documented as of this encounter Visit Diagnoses Not on filedocumented in this encounter Additional Health Concerns Assessment Noted Time PHQ-9 Depression Total Score: 0 09/22/20 22 10:00 AM EST documented as of this encounter Care Teams Oral Therapist Relationship Specialty Start Date End Date Name, MD Stef [address] [place] [address] PCP - General Family Medicine 01/28/16 Yuliya ALFRED 07/27/24 documented as of this encounter
--- OUTSIDE RECORDS SUMMARY | 2024-11-25 07:39 | XMS_ITS | Encounter Summary ---
Author Organization [employer] Address [address] [place] [address] Care Team Providers Care Pick Remover Name Role Phone Name, Stef ESTRADA Primary Care Provider [phone] Reason for Visit * Reason Onset Date Comments Paperwork/Forms 04/18/2024 Encounter Details Date Type Department Care Team ([facility] st Contact Info) Description 04/18/2024 Telephone [facility] [address] [place] [address] Name, MD Stef [address] [place] [address] Paperwork/Forms Social History Tobacco Use Types Packs/Day [...] PM EDT Tc from Emily, nurse at [employer] [facility] requesting paperwork to be sign as soon as possible in order to them be able to admit pt into services. Please contact Emily at [phone] if any question. documented in this encounter Plan of Treatment Upcoming Encounters Date Type Department Care Team (Late st Contact Info) Description 12/05/2024 1:00 PM EST Office Visit [facility] [address] [place] [address] Name, MD Stef [address] [place] [phone] documented as of this encounter Visit Diagnoses Not on filedocumented in this encounter Additional Health Concerns Assessment Noted Time PHQ-9 Depression Total Score: 0 01/28/20 10:49 AM EDT documented as of this encounter Care Teams Pick Remover Relationship Specialty Start Date End Date Name, MD Stef [address] [place] [address] PCP - General Family Medicine 01/28/16 [facility] documented as of this encounter
--- OUTSIDE RECORDS SUMMARY | 2024-11-25 07:39 | XMS_ITS | Encounter Summary ---
Author Organization [employer] Address [address] [place] [address] Care Team Providers Care College Tutor Name Role Phone Name, Stef ESTRADA Primary Care Provider [phone] Reason for Visit * Reason Onset Date Comments Nurse Triage 03/13/2023 Encounter Details Date Type Department Care Team ([facility] st Contact Info) Description 03/13/2023 Telephone [facility] [address] [place], [place] [phone] Name, MD Stef [address] [place] [address] Nurse Triage Social History Tobacco Use Types [...] t he electric, gas, oil or water [employer] threatened to shut off services in your [...] caller accepted this outcome Please contact at [phone] Croatian documented in this encounter Plan of Treatment Upcoming Encounters Date Type Department Care Team (Late st Contact Info) Description 12/05/2024 1:00 PM EST Office Visit [facility] [address] [place] [address] Name, MD Stef [address] [place] [address] documented as of this encounter Visit Diagnoses Not on filedocumented in this encounter Additional Health Concerns Assessment Noted Time PHQ-9 Depression Total Score: 0 09/22/20 10:00 AM EST documented as of this encounter Care Teams College Tutor Relationship Specialty Start Date End Date Name, MD Stef [address] [place] [address] PCP - General Family Medicine 01/28/16 Yuliya Amrit 07/27/24 documented as of this encounter
--- OUTSIDE RECORDS SUMMARY | 2024-11-25 07:39 | XMS_ITS | Data Portability ---
Author Organization [employer] [facility] [place] [facility] [employer] Address [address] [place] [address] Care Team Providers Care Salesperson Trailers And Motor Homes Name Role Phone [facility] Referring Provider [facility] Referring Provider Assessment Encounter Date Assessment Date Assessment LastModified by Organization Details LastModified Time 04/22/2022 04/22/2022 I have reviewed and agree with the assessment and plan as documented by the blue crabber. I provided real-time medical direction for this [...] [id number] Ralf Valladares MD Main - instED [address] [place] [phone] 04/22/2022 14:09:54 06/10/2022 12:23:06 Pain in wrist [id number] M25.531 Health Concerns Section Related Observation LastModified by Organization Detai ls LastModified Time None Recorded Concern Status LastModified by Organization Details LastModified Time None Recorded Advance Directives Directive None Recorded Payers Encounter Date Sequence Insurance Name Policy Number Policy Hinson Covered Member ID Hinson Member ID Guarantor Name 04/22/2022 1 [facility] - DOS PRIOR TO 2023 - DUAL ELIGIBLE (MEDICARE REPLACEMENT/ADV ANTAGE - HMO) Elisa Weaver [id number] Elisa Weaver Notes Date Note Type Note [...] .................. ............... CRC Nursing Assessment: Comments: Per CRIMPING MACHINE OPERATOR, if possible please avoid Bactrim as treatment, as member has had an BRIANNE in the past with use of this abx .................. .................. .................. .................. .................. .................. .................. ............... Souvenir And Novelty Maker Note: eval for pain after right wrist [...] family members in attendance care for pt. [facility] ordered 15 mg toradol for pain, given with some relief. elevated arm on pillow, put ice pack on wrist area with some relief. [facility] to call and try and get an earlier appointment for ortho .................. .................. .................. .................. .................. .................. .................. ............... Disposition: Fulfilled Ralf Valladares MD [address] [facility], [place], [phone], [place] - ERIC BREEN 04/22/2022 19:27:13 OBGyn Episode No OBEpisode recorded.
--- OUTSIDE RECORDS SUMMARY | 2024-11-25 07:39 | XMS_ITS | Encounter Summary ---
Author Organization [employer] Address [address] [facility] 7t [place] [address] Care Team Providers Care Tuck Pointer Helper Name Role Phone Name, Stef ESTRADA Primary Care Provider [phone] Reason for Visit * Reason Comments Transition Of Care (Tcm) HDF #2 - Unable to LVM Encounter Details Date Type Department Care Team ([facility] st Contact Info) Description 10/28/2024 Patient Outreach [facility] [address] [place] [address] Name, MD Stef [address] [place] [address] Transition Of Care (Tcm) (HDF #2 - [...] 10/28/24 1307 Hospital Discharges and Admission for [facility] Type of Visit Hospital Admission Date of Admission/Visit 10/18/24 Date of Discharge 10/20/24 Facility [facility] Medical Diagnosis Acute UTI Disposition Discharged Home [...] Office Visit [facility] [address] [place] [address] Name, MD Stef [address] [place] [address] documented as of this encounter Visit Diagnoses Not on filedocumented in this encounter Additional Health Concerns Assessment Noted Time PHQ-9 Depression Total Score: 0 01/28/20 10:49 AM EDT documented as of this encounter Care Teams Tuck Pointer Helper Relationship Specialty Start Date End Date Name, MD Stef [address] [place] [address] PCP - General Family Medicine 01/28/16 Yuliya ALFRED 07/27/24 documented as of this encounter
--- OUTSIDE RECORDS SUMMARY | 2024-11-25 07:39 | XMS_ITS | Encounter Summary ---
Author Organization [employer] Address [address] 7[address] [place] [address] Care Team Providers Care Firer Locomotive Name Role Phone Name, Stef ESTRADA Primary Care Provider [phone] Encounter Details Date Type Department Care Team (Late st Contact Info) Description 10/26/2024 Refill [facility] [address] [place], [place] [phone] Jenna Mixon, PharmD [address] [place] [address] Social History Tobacco Use Types Packs/Day Years [...] 10/26/2024 3:43 PM EST Dose decreased at [facility] discharge 10/20/24 documented in this encounter Plan of Treatment Upcoming Encounters Date Type Department Care Team (Late st Contact Info) Description 12/05/2024 1:00 PM EST Office Visit [facility] [address] [place] [address] Name, MD Stef [address] [place] [address] documented as of this encounter Visit Diagnoses Not on filedocumented in this encounter Additional Health Concerns Assessment Noted Time PHQ-9 Depression Total Score: 0 01/28/20 10:49 AM EDT documented as of this encounter Care Teams Firer Locomotive Relationship Specialty Start Date End Date Name, MD Stef [address] [place] [address] PCP - General Family Medicine 01/28[facility]16 [facility] documented as of this encounter
--- OUTSIDE RECORDS SUMMARY | 2024-11-25 07:39 | XMS_ITS | Encounter Summary ---
Author Organization [employer] Address [address] [place] [address] Care Team Providers Care Commercial Ocean Clammer Name Role Phone Name, Stef ESTRADA Primary Care Provider [phone] Reason for Visit * Reason Onset Date Comments Hospital Follow-up 10/28/2024 Encounter Details Date Type Department Care Team ([facility] st Contact Info) Description 10/28/2024 Telephone [facility] [address] [place], [place] [phone] Name, MD Stef [address] [place] [address] Hospital Follow-up Social History Tobacco Use Types [...] PM EST Tc from pt requesting a [employer] appt. [place] [facility] Date of admission: 10/18 Discharge date: 10/20 Diagnosed: Gastritis and UTI Huma states that Pt son told her that they should hold med clopidogrel (Plavix) 75 MG tablet Due to pt having bad Gastritis. Huma said that she looked at the Notes from the Hospital and there is nothing about holding them on the Notes. *Send message to Normanna Clinical Care Coordinators Contact INTERNET MARKETING COORDINATOR to Schedule pt [phone] documented in this encounter Plan of Treatment Upcoming Encounters Date Type Department Care Team (Late st Contact Info) Description 12/05/2024 1:00 PM EST Office Visit [facility] [address] [place] [phone] Name, MD Stef [address] [place] [address] documented as of this encounter Visit Diagnoses Not on filedocumented in this encounter Additional Health Concerns Assessment Noted Time PHQ-9 Depression Total Score: 0 01/28/20 10:49 AM EDT documented as of this encounter Care Teams Commercial Ocean Clammer Relationship Specialty Start Date End Date NameStef MD [address] [place] [address] PCP - General Family Medicine [facility]/28[facility]16 [facility] documented as of this encounter
--- OUTSIDE RECORDS SUMMARY | 2024-11-25 07:40 | XMS_ITS | Clinical Summary ---
Author Organization [employer] Address [address] [facility] 7[address] [place] [address] Care Team Providers Care Detail Supervisor Name Role Phone Name, Stef ESTRADA Primary Care Provider [phone] Allergies Active Allergy Reactions Criticality Noted Date [...] eyes. 15 mL 1 024 2024 Active polyethylene glycol, PEG, 3350 (Glycolax) 17 [...] or chew. 15 tablet 2 025 Active amitriptyline (Elavil) 10 MG tablet TAKE 1 TABLET BY MOUTH AT BEDTIME 90 tablet 1 025 Active amitriptyline (Elavil) 10 MG tablet TAKE 1 TABLET BY MOUTH AT BEDTIME 90 tablet 1 024 2024 Discontinued Active Problems Problem Noted Date Diagnosed Date [...] Encounters Date Type Department Care Team Description 11/20/2024 Refill [facility] [address] [place] [facility] [place] [address] Stef Greer MD 11/16/2024 Orders Only GENERIC EXTERNAL DATA DEPARTMENT Provider, Generic External Data 10/28/2024 Patient Outreach [facility] [place] [facility] [place] [address] Stef Greer MD Transition Of Care (Tcm) (HDF #2 - Unable to LVM) 10/28/2024 Telephone [facility] [address] [place] [phone] Stef Greer MD Durable Medical Equipment 10/28/2024 Telephone [facility] [address] [place] [address] Stef Greer MD Hospital Follow-up 10/26/2024 Patient Outreach [facility] [place] [address] Stef Greer MD Transition Of Care (Tcm) (Unable to LVM ) 10/26/2024 Telephone [facility] [address] [place] [phone] Jenna Mixon, PharmD 10/26/2024 Refill [facility] [address] [place] [address] Jenna Mixon, PharmD 10/19/2024 Refill [facility] [address] [place] [address] Stef Greer MD Closed nondisplaced fracture of right clavicle, unspecified part of clavicle, initial encounter; Osteoporosis, unspecified osteoporosis type, unspecified pathological fracture presence; Moderate dementia without behavioral disturbance, psychotic disturbance, mood disturbance, or anxiety, unspecified dementia type ([facility]) 10/19/2024 Refill [facility] [address] [place] [address] Britney Pollard DO Moderate dementia without behavioral disturbance, psychotic disturbance, mood disturbance, or anxiety, unspecified dementia type ([facility]) 10/16/2024 Refill [facility] [address] [place] [address] Name, MD Stef Moderate dementia without behavioral disturbance, psychotic disturbance, mood disturbance, or anxiety, unspecified dementia type ([facility]) 08/25/2024 Telephone [facility] [address] [place] [address] Demetrice Nelson MA Chart Prep from Last 3 Months Immunizations Name Administration [...] Description 12/05/2024 1:00 PM EST Office Visit [facility] [address] [place] [facility] [place] [address] Name, MD Stef [address] [place] [address] Health Maintenance Due Date Last Done Comments Alcohol/Substance Use Screening 1952 RSV Patients and Patients Aged 60 years or older (1 - 1-dose 75+ series) 2015 COVID-19 Vaccine ( - season) 2024 02/25/2022, 01/09/2021 Influenza Vaccine (#1) [...] TROPONIN I Routine 11/16/2024 4:29 PM EST URINALYSIS, COMPLETE, WITH REFLEX TO CULTURE Routine 11/16/2024 4:29 PM EST HOLD LT BLUE - POSSIBLE COAG Routine 11/16/2024 4:29 PM EST LIPID PANEL, STANDARD Routine 01/28/2024 11:40 AM EDT Dementia associated with other underlying disease, with anxiety, unspecified dementia severity (CMS/HCC) 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 TROPONIN I HIGH SENSITIVITY 26.6(H) <3.5 - 17.0 ng/L [facility] Comment:The Lal high sens itivity Troponin-I results should beused in conjunction with other diagnostic information suchas ECG, clinical observations and information, and patientsymptoms to aid in the diagnosis of MA. 11/16/2024 6:11 PM EST 11/16/2024 6:12 PM EST us Generic External Data Provider LAB BLOOD ORDERAB LES Final Result [facility] [address] [place] [phone] * Culture, Urine, Routine (11/16/2024 5:04 PM EST) Urine Urine specimen from urinary conduit / Unknown 11/16/2024 5:04 PM EST 11/16/2024 5:04 PM EST Comment:Urine Cath Narrative [facility] - 11/18/2024 8:46 AM EST Klebsiella pneumoniae Quant > 100,000 cfu/mL Klebsiella pneumoniae: Ampicillin >=32(R) Klebsiella pneumoniae: Cefazolin >=32(R) Klebsiella pneumoniae: Cefepime <=0.12(S) Klebsiella pneumoniae: Ceftriaxone <=0.25(S) Klebsiella pneumoniae: Ciprofloxacin <=0.06(S) Klebsiella pneumoniae: Gentamicin <=1(S) Klebsiella pneumoniae: Nitrofurantoin 64(I) Klebsiella pneumoniae: Trimethoprim/Sulfamethoxazole <=20(S) Specimen Source: Urine Catheterized Generic External Data Provider LAB MICROBIOLOGY - GENERAL ORDERABLES Final Result Performing Organization Address [facility]/ZIP Co de Phone Number [facility] [address] [place] [phone] * Hold Lavender - Possible Hematology (11/16/2024 4:29 PM EST) Hold Lavender - Possible Hematololgy SEE NOTE [facility] Comment:Specimen will be hel d untested for 8 hours. Call Hematologyif testing is desired. 11/16/2024 4:29 PM EST 11/16/2024 4:52 PM EST Generic External Data Provider HISTORICAL/NON OR DERABLE LABS Final Result Performing Organization Address City/[facility]/ZIP Co de Phone Number [facility] [address] [place] [phone] * HOLD LT BLUE - POSSIBLE COAG (11/16/2024 4:29 PM EST) Hold Lt Blue - Possible Coag SEE NOTE [facility] Comment:Specimen will be hel d untested for 4 hours. Call Hematologyif testing is desired. 11/16/2024 4:29 PM EST 11/16/2024 4:52 PM EST us Generic External Data Provider LAB BLOOD ORDERAB LES Final Result Performing Organization Address [facility]/ZIP Co de Phone Number [facility] [address] [place] [phone] * (ABNORMAL) Urinalysis, Complete, with Reflex to Culture (11/16/2024 4:29 PM EST) Color Urine Yellow [facility] Appearance Urine Turbid [facility] PH 7.0 5.0 - 9.0 [facility] Glucose Urine UA Negative Negative mg/dL [facility] Urine Blood Large (3+)(A) Negative [facility] Specific [place] - Urine 1.020 1.005 - 1.025 [facility] Urine Protein 30 (1+)(A) Neg-Trace mg/dL [facility] Urine Ketones 15 Negative mg/dL [facility] Nitrite Urine Positive(A) Negative [facility] Leukocyte Esterase Urine Large (3+)(A) Negative [facility] RBC Urine >20(A) 0 - 2 /HPF [facility] Urine WBC >50(A) 0 - 5 /HPF [facility] Urine Squamous Epithelial Cell 6-10 0 - 2 /HPF [facility] Urine Bacteria 3+ None Seen [facility] Hyaline Casts, Urine 6-10 0 - 2 /LPF [facility] 11/16/2024 4:29 PM EST 11/16/2024 4:50 PM EST Narrative [facility] - 11/16/2024 5:04 PM EST Urine, Catheterized us Generic External Data Provider LAB URINE ORDERAB LES Final Result Performing Organization Address [facility] Co de Phone Number [facility] [address] [place] [phone] * (ABNORMAL) Lipid Panel, Standard (01/28/2024 11:40 AM EDT) Triglycerides 265(H) <150 mg/dL [facility] Comment:Desirable Triglyceri de: less than 150 mg/dLBorderline High Triglyceride 150-199 mg/dLHigh Triglyceride: 200-499 mg/dLVery High Triglyceride: greater than or equal to 5OO mg/dL Cholesterol 212(H) <200 mg/dL [facility] Comment:Desirable Cholestero l: less than 200 mg/dLBorderline High Cholesterol: 200-239 mg/dLHigh Cholesterol: greater than 239 mg/dL LDL Cholesterol Calculated 122(H) <100 mg/dL [facility] Comment:Desirable LDL: less than 100 mg/dLNear Optimal/Above Optimal LDL: 110- 129 mg/dLBorderline High LDL: 130-159 mg/dLHigh LDL: 160-189 mg/dLVery High LDL: greater than or equal to 190 mg/dL HDL Cholesterol 37(L) >40 mg/dL [facility] Comment:Desirable HDL: great er than 40 mg/dL Note: This HDL assay may give artificially low results in patients with liver disease. Blood Venous blood specimen / Unknown 01/28/2024 11:40 AM EDT 01/28/2024 1:30 PM EDT us Stef Greer MD LAB BLOOD ORDERABLES Final Resul t [facility] [address] [place], [place] [phone] from Last 3 Months or Most Recently Relevant to Health Maintenance Insurance [facility] Care Teams Detail Supervisor Relationship Specialty Start Date End Date Name, MD Stef [address] [place] [phone] PCP - General Family Medicine 01/28/16 [facility] 07/27/24
--- NOTE | 2024-11-25 07:49 | A.OFFVIS_ITS ---
Vital Signs 11/25/24 07:54 Height 5 ft Weight 87 lb BMI 17.0 BP 134/74 Blood Pressure Location Lt brachial Position Sitting Pulse 72 Pulse Oximetry (%) 99 Oxygen Delivery Method Room Air Intake Visit Reasons: 2 month follow up Intake Note: Patient follow up fro Candidiasis, esophageal. Patient cc: lost weight with no appetite, and swallowing discomfort. Teamsite Developer Required: No Accompanied by: Family/Other Allergies No Known Allergies [NO KNOWN ALLERGIES] Allergy (Unknown, Verified 12/21/24 09:40) UNKNOWN Medication List - Last Reconciled 11/25/24 by Shannon Aragon MD acetaminophen 500 mg PO Q6H PRN albuterol sulfate 90 mcg/actuation 2 puffs PO Q4H PRN amitriptyline 10 mg PO BEDTIME atorvastatin 40 mg PO DAILY calcium carbonate-vitamin D3 500 mg-10 mcg (400 unit) (Oyster Shell Calcium- Vitamin D3) 1 tab PO BID cefuroxime axetil 250 mg PO BID 7 days clopidogrel 1 tab PO DAILY melatonin 5 mg PO BEDTIME PRN metoprolol succinate ER 12.5 mg (1/2 x 25 mg) PO DAILY mirtazapine 30 mg PO BEDTIME ondansetron 4 mg PO Q6-8H PRN pantoprazole 1 tab PO BID@0630,1630 polyethylene glycol 3350 17 grams PO DAILY PRN sertraline 1 tab PO DAILY sucralfate 1 g PO TID HPI HPI 2 month follow up: Details: GI clinic visit for this 84 year old Ecuadorean-speaking female for follow-up after recent hospitalization TODAY'S VISIT: Pt is accompanied by her son and Marleen SANCHES who interpreted for the patient. Patient cc: lost weight with no appetite, and swallowing discomfort. Pt is not eating well - states her esophagus hurts when she eats Eating like a toddler. Eats more liquids (Ensure) rather than liquids Wt loss from 106 to 87 lbs over the past 8 months PAST VISIT: Weighs 98 lbs Low energy, does'nt want to eat Family giving her soups, ensure and electrolytes Eating less than 1/2 of her food like a baby Pt has been declining and dementia is getting worse Pt complains of nausea and denies vomiting. Wt loss from 120 to 98 lbs over the past 5 to 6 months Pt wears diapers and has a normal BM daily. Denies recent diarrhea, black stools or rectal bleeding. Patient denies major cardiac or pulmonary problems, loud snoring or sleep apnea Denies problems with anesthesia in the past. Denies being on chronic anticoagulation. Patient denies known family history of colon polyps, colon cancer or other GI malignancies. Pt has arthritis with pain in the shoulders [facility] : Reviewed IMAGING STUDIES: 08/04/[address] SCAN SHOWED: Acute to subacute superior endplate compression deformity L2 vertebra with] millimeter of retropulsion upon central canal. Cholelithiasis. Nonobstructing nephrolithiasis, left kidney. Fat-containing umbilical hernia. Hiatal hernia. Calcified mitral valve ENDOSCOPIC STUDIES: 08/05/24 EGD SHOWED: ESOPHAGUS: Small hiatal hernia with severe erosive esophagitis with possible aaron esophagitis - status post biopsies and brushings STOMACH: Three 3-5 mm non-bleeding ulcers in the gastric antrum - biopsies were obtained Plan: 1. IV PPI twice daily and switch to PO Omeprazole twice a day once pt is tolerating a PO diet. 2. Stewart of clear liquid diet tonight and advance diet as tolerated. BIOPSIES SHOWED: A. Stomach, antrum, biopsy: Antral-type mucosa with mild chronic inactive inflammation; no Helicobacter organisms seen. B. Stomach, ulcer, biopsy: Antral-type mucosa with chronic active erosive inflammation and regenerative changes; no Helicobacter organisms seen. C. Esophagus, biopsy: Fragments of inflamed smooth muscle and ulcer/necroinfla mmatory material; no atypia or fungi identified Fungal cultures showed Aaron glabrata PAST GI HISTORY BY REVIEW OF MEDICAL RECORDS: 08/05/24 patient was seen in consultation during hospitalization: Elisa Weaver is 83 years old with past medical history significant hyperlipidemia, hypertension, CVA, CAD, dementia and cholelithiasis who was brought to the emergency department due to sudden onset of severe epigastric pain associated with nausea and vomiting. Patient stated that the pain radiate to the chest. She denied any shortness on breath, cough, fever, chills, dizziness or palpitations. She did not report any acute urinary symptoms. Per chart review: Patient had multiple visits to the emergency department with similar symptoms. She has been evaluated in the past with surgery service for gallstones. [facility] Medical History Nausea & vomiting Gallstones Abnormal nuclear stress test HLD (hyperlipidemia) HTN (hypertension) CVA, old, disturbances of vision (~09/2019) NSTEMI (non-ST elevated myocardial infarction) Dementia Coronary artery disease Surgical History History of esophagogastroduodenoscopy (EGD) Family History Father No problems noted. Mother No problems noted. 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 Review of Systems Const All systems reviewed & are unremarkable except as noted in HPI and below Physical Exam Vital Signs: Last Vital Signs Pulse 72 11/25/24 07:54 BP 134/74 11/25/24 07:54 Pulse Ox 99 11/25/24 07:54 Oxygen Delivery Method Room Air 11/25/24 07:54 BMI result Body Mass Index 17.0 Assessment & Plan Assessment & Plan (1) Gastritis: Code(s): K29.70 - Gastritis, unspecified, without bleeding Category: Medical (2) Weight loss: Code(s): R63.4 - Abnormal weight loss Category: Medical (3) Candidiasis, esophageal: Code(s): B37.81 - Candidal esophagitis Category: Medical (4) Gastric ulcer: Code(s): K25.9 - Gastric ulcer, unspecified as acute or chronic, without hemorrhage or perforation Category: Medical (5) Epigastric pain: Code(s): R10.13 - Epigastric pain Category: Medical (6) Nausea & vomiting: Code(s): R11.2 - Nausea with vomiting, unspecified Category: Medical (7) Gallstones: Code(s): K80.20 - Calculus of gallbladder without cholecystitis without obstruction Category: Medical Plan 84 year old Ecuadorean-speaking female with HLD, HTN, CVA, CAD on Plavix and statin, and dementia seen for FU of dysphagia and odynophagia 08/05/24 patient was seen in consultation during hospitalization: Elisa Weaver is 83 years old with past medical history significant hyperlipidemia, hypertension, CVA, CAD, dementia and cholelithiasis who was brought to the emergency department due to sudden onset of severe epigastric pain associated with nausea and vomiting. Patient stated that the pain radiate to the chest. She denied any shortness on breath, cough, fever, chills, dizziness or palpitations. She did not report any acute urinary symptoms. 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 She has resumed eating and has no further weight loss per family so the symptoms may have been due to dementia Family desires no treatment unless failure to thrive reappears and worsens and then would try IV and then po Voriconazole 200 mg bid for two weeks but interacts with clopidogrel so coagulation would have to be addressed. 11/25/24 Family reported pt states her esophagus hurts when she eats and is not eating well and has lost wt loss from 106 to 87 lbs over the past 8 months Pt's family requested PEG tube placement for nutritional support. Due to concern for persistent infection with Aaron glabrata (which can be resistant to Fluconazole) Pt was discussed with Dr Vogel (ID) and advised hospitalization for treatment of Aaron Glabrata with IV Caspofungin IV,. Coding Level of Care Code Est Pt Level 3 (14281) Diagnoses Gastritis K29.70 Weight loss R63.4 Candidiasis, esophageal B37.81 Gastric ulcer K25.9 Epigastric pain R10.13 Nausea & vomiting R11.2 Gallstones K80.20 Time Spent (min) 18
[2024-11-25 07:54] VITALS: BP 134/74; PULSE 72; O2SAT 99; BMI 17.0
== END 2024-11-25 09:38 | disposition home or self-care (01) ==
PROVIDERS: PCP Internal Medicine Geriatric Medicine; Visit Provider Internal Medicine Gastroenterology
DX: K29.70 Gastritis, unspecified, without bleeding (principal); R63.4 Abnormal weight loss; B37.81 Candidal esophagitis; K25.9 Gastric ulcer, unspecified as acute or chronic, without hemorrhage or perforation; R10.13 Epigastric pain; R11.2 Nausea with vomiting, unspecified; K80.20 Calculus of gallbladder without cholecystitis without obstruction
CPT/HCPCS: 99213

== ENCOUNTER → 2024-11-25 07:38 | Outpatient (BNVA) | payer OTHER, SELFPAY | PROVIDERS: PCP Internal Medicine Geriatric Medicine; Visit Provider Internal Medicine Gastroenterology | DX: R63.4 Abnormal weight loss (principal); R10.13 Epigastric pain; R11.0 Nausea; K29.70 Gastritis, unspecified, without bleeding; K25.9 Gastric ulcer, unspecified as acute or chronic, without hemorrhage or perforation; K80.20 Calculus of gallbladder without cholecystitis without obstruction; B37.81 Candidal esophagitis | CPT/HCPCS: 99212 ==

== ENCOUNTER 2024-12-05 13:42 | Outpatient (REF) | payer OTHER, SELFPAY ==
--- OUTSIDE RECORDS SUMMARY | 2024-12-05 16:09 | XMS_ITS | Data Portability ---
Author Organization [facility] [place] [facility] - [employer] Address [address] [place] [address] Care Team Providers Care Christmas Tree Contractor Name Role Phone [facility] Referring Provider [facility] Referring Provider [phone] Assessment Encounter Date Assessment Date Assessment LastModified by Organization Details LastModified Time 04/22/2022 04/22/2022 I have reviewed and agree with the assessment and plan as documented by the small animal veterinarian. I provided real-time medical direction for this [...] [id number] Ralf Valladares MD Main - [facility] [address] [place] [phone] 04/22/2022 14:09:54 06/10/2022 12:23:06 Pain in wrist [id number] M25.531 Health Concerns Section Related Observation LastModified by Organization Detai ls LastModified Time None Recorded Concern Status LastModified by Organization Details LastModified Time None Recorded Advance Directives Directive None Recorded Payers Encounter Date Sequence Insurance Name Policy Number Policy Hinson Covered Member ID Hinson Member ID Guarantor Name 04/22/2022 1 [facility] - DOS PRIOR TO 2023 - DUAL ELIGIBLE (MEDICARE REPLACEMENT/ADV ANTAGE - HMO) Elisa Weaver [id number] Elisa Weaver Notes Date Note Type Note [...] .................. ............... [facility] Nursing Assessment: Comments: Per NON LICENSED OPERATOR, if possible please avoid Bactrim as treatment, as member has had an BRIANNE in the past with use of this abx .................. .................. .................. .................. .................. .................. .................. ............... Orchid Worker Note: eval for pain after right wrist [...] family members in attendance care for pt. [facility] ordered 15 mg toradol for pain, given with some relief. elevated arm on pillow, put ice pack on wrist area with some relief. [facility] to call and try and get an earlier appointment for ortho .................. .................. .................. .................. .................. .................. .................. ............... Disposition: Fulfilled Ralf Valladares MD [address] [facility],[address], [place], [address], [place] - ERIC BREEN 04/22/2022 19:27:13 OBGyn Episode No OBEpisode recorded.
--- OUTSIDE RECORDS SUMMARY | 2024-12-05 16:09 | XMS_ITS | Encounter Summary ---
Author Organization [employer] Address [address] [facility] 7t [place] [address] Care Team Providers Care Double End Tenon Operator Name Role Phone Name, Stef ESTRADA Primary Care Provider [phone] Reason for Visit * Reason Comments Follow-up Encounter Details Date Type Department Care Team ([facility] st Contact Info) Description 12/05/2024 1:00 PM EST Office Visit [facility] [address] [place], [place] [phone] Name, MD Stef [address] [place] [address] Anorexia (Primary Dx); Weight loss; Encounter for immunization; Dementia associated with other underlying disease, with anxiety, unspecified dementia severity (CMS/HCC) Social History Tobacco Use Types Packs/Day [...] AM EDT documented as of this encounter Last Filed Vital Signs Vital Sign Reading Time Taken Comments Blood Pressure 107/73 12/05/2024 1:13 PM EST Pulse 86 12/05/2024 1:13 PM EST Temperature 35.6 ??C (96 ??F) 12/05/2024 1:13 PM EST Respiratory Rate 12 12/05/2024 1:13 PM EST Oxygen Saturation 97% 12/05/2024 1:13 PM EST Inhaled Oxygen Concentration - - Weight 39.5 kg (87 lb) 12/05/2024 1:13 PM EST Height - - Body Mass Index 19.51 08/01/2024 11:57 AM EDT documented in this encounter Progress Notes * Stef Greer MD - 12/05/2024 1:00 PM EST Subjective Patient ID: Elisa Weaver is a 84 y.o. female who presents for Follow-up. Patient comes for a follow-up visit. The patient has underlying dementia and is accompanied by her son. The patient lives in an apartment with one of her sons that has developmental disabilities. Thepatient's UTILITY ACCOUNTS DIRECTOR is her granddaughter. The patient depends on her family for IADLs and needs help withdressing, grooming, cooking. She is examined in a wheelchair. The patient sounds tells me she does n ot have much appetite. She does not walk much outside of the apartment. She has lost significant weight compared to previous visit. No nausea or vomiting. No blood in the stool or black stool. She was seen last month at [facility]. She had UTI and COVID. Recent blood work is attached below. Review of Systems Constitutional: Positive for unexpected weight change. Negative for chills and fever. HENT: Negative for sore throat. Respiratory: Negative for cough, shortness of breath and wheezing. Cardiovascular: Negative for chest pain, palpitations and leg swelling. Gastrointestinal: Negative for abdominal pain. Anorexia Visit Vitals BP 107/73 (BP Location: Left arm, Patient Position: Sitting, BP Cuff Size: Child) Pulse 86 Temp 96 ??F (35.6 ??C) (Temporal) Resp 12 Wt 87 lb (39.5 kg) SpO2 97% BMI 19.51 kg/m?? Smoking Status Never BSA 1.25 m?? Objective Physical Exam Constitutional: General: She is not in acute distress. Appearance: Normal appearance. Cardiovascular: Rate and Rhythm: Normal rate and regular rhythm. Heart sounds: No murmur heard. No gallop. Pulmonary: Effort: Pulmonary effort is normal. No respiratory distress. Breath sounds: Normal breath sounds. No wheezing. Musculoskeletal: Right lower leg: No edema. Left lower leg: No edema. Neurological: General: No focal deficit present. Mental Status: She is alert. 11/16/24 11/16/24 11/16/24 Range/Units 15:47 16:29 18:11 WBC 8.7 (4.8-10.8) X10*3/uL RBC 4.15 L D (4.20-5.50) X10*6/uL Hgb 13.7 D (12.0-16.0) g/dl Hct 38.9 (37.0-47.0) % MCV 93.7 (80.0-98.0) fL MCH 33.0 (27.0-33.0) pg MCHC 35.2 H (31.0-35.0) g/dl RDW 14.1 (11.0-16.0) % Plt Count 305 (160-400) X10*3/uL MPV 11.3 (9.4-12.3) fL Immature Gran % (Auto) 0.2 (0.0-0.4) % Neut % (Auto) 49.2 (45-73) % Lymph % (Auto) 40.5 H (20-40) % Summit % (Auto) 9.0 (2-11) % Eos % (Auto) 0.8 (0-4) % Baso % (Auto) 0.3 (0-2) % Lymph # (Auto) 3.5 (1.2-4.9) X10*3/uL Summit # (Auto) 0.8 (0.1-1.2) X10*3/uL Eos # (Auto) 0.1 (0.0-0.4) X10*3/uL Baso # (Auto) 0.0 (0.0-0.2) X10*3/uL Abs Immat Gran (auto) 0.02 (0.00-0.03) X10*3/uL Absolute Neuts (auto) 4.3 (2.0-8.3) x10*3/uL Absolute Nucleated RBC 0.000 (0.0-0.012) X10*3/uL Nucleated RBC % (auto) 0.0 (0.0-0.2) /100WBC Hold Purple Top SEE NOTE Hold Blue Top SEE NOTE Sodium 135 (135-145) mmol/L Potassium 3.2 L (3.3-5.1) mmol/L Chloride 101 (96-108) mmol/L Carbon Dioxide 23 (22-29) mmol/L Anion Gap 14 (12-20) BUN 12 (9-16) mg/dL Creatinine 0.62 (0.5-1.4) mg/dL Estim Creat Clear Calc 40.4 Estimated GFR > 60 Random Glucose 117 H (60-115) mg/dL Calcium 8.9 (8.4-10.2) mg/dL Magnesium 1.8 (1.6-2.6) mg/dL Total Bilirubin 0.5 (0.0-1.0) mg/dL Direct Bilirubin 0.1 (0.0-0.5) mg/dL AST 30 (5-31) U/L ALT 7 (0-31) U/L Alkaline Phosphatase 61 (39-117) U/L Troponin I High Sens 24.1 H 28.5 H 26.6 H (<3.5-17.0) ng/L C-Reactive Protein 0.69 H (< or = 0.50) mg/dL Total Protein 7.2 (6.5-8.0) g/dL Albumin 3.4 L (3.5-5.0) g/dL Lipase 28 (8-78) U/L Assessment/Plan Diagnoses and all orders for this visit: Anorexia Comments: I will check her TSH. I will get her Ensure and daily multivitamins. She has adequate level of supervision at home. Flu vaccine today. Orders: - TSH W/Reflex to FT4; Future Weight loss Comments: Needs Ensure Orders: - TSH W/Reflex to FT4; Future Encounter for immunization - FLU VACCINE TRIVALENT HIGH DOSE 65 yrs + Other orders - Multiple Vitamin (multivitamin) capsule; Take 1 capsule by mouth Once per day. documented in this encounter Plan of Treatment Upcoming Encounters Date Type Department Care Team (Late st Contact Info) Description 03/07/2025 1:00 PM EDT Office Visit [facility] [address] [place] [phone] NameStef MD [address] [place] [phone] Scheduled Orders Name Type Priority Associated Diagnoses Orde r Schedule TSH W/Reflex to FT4 Lab Routine Anorexia Weight loss Expected: 12/05/2024 (Approximate), Expires: 12/05/2025 documented as of this encounter Visit Diagnoses Diagnosis Anorexia- Primary Weight loss Loss of weight Encounter for immunization Dementia associated with other underlying disease, with anxiety, unspecified dementia severity (CMS/HCC) documented in this encounter Additional Health Concerns Assessment Noted Time PHQ-9 Depression Total Score: 0 01/28/20 10:49 AM EDT documented as of this encounter Care Teams Double End Tenon Operator Relationship Specialty Start Date End Date Stef Greer MD [address] [place] [address] PCP - General Family Medicine 01/28/16 [facility] 07/27/24 documented as of this encounter
--- OUTSIDE RECORDS SUMMARY | 2024-12-05 16:09 | XMS_ITS | Encounter Summary ---
Author Organization [email or web address] Address [address] [facility] [address] [place] [address] Care Team Providers Care Junior Marketing Associate Name Role Phone Name, Stef ESTRADA Primary Care Provider [phone] Reason for Visit * Reason Comments Med Refill Encounter Details Date Type Department Care Team ([facility] st Contact Info) Description 11/20/2024 Refill [facility] [address] [place], [place] [phone] Name, MD Stef [address] [place] [address] Social History Tobacco Use Types Packs/Day Years [...] Description 03/07/2025 1:00 PM EDT Office Visit [facility] [address] [place] [phone] Name, MD Stef [address] [place] [address] documented as of this encounter Visit Diagnoses Not on filedocumented in this encounter Additional Health Concerns Assessment Noted Time PHQ-9 Depression Total Score: 0 01/28/20 10:49 AM EDT documented as of this encounter Care Teams Junior Marketing Associate Relationship Specialty Start Date End Date NameStef MD [address] [place] [address] PCP - General Family Medicine 01/28/16 Yuliya Amrit 07/27/24 documented as of this encounter
--- OUTSIDE RECORDS SUMMARY | 2024-12-05 16:09 | XMS_ITS | Encounter Summary ---
Author Organization [employer] Address [address] [facility] [address] 7t [place] [address] Care Team Providers Care Accountant Auditor Name Role Phone Name, Stef ESTRADA Primary Care Provider [phone] Reason for Visit * Reason Onset Date Comments Paperwork/Forms 04/18/2024 Encounter Details Date Type Department Care Team ([facility] Contact Info) Description 04/18/2024 Telephone [facility] [address] [place], [place] [phone] Name, MD Stef [address] [place] [address] Paperwork/Forms Social History Tobacco Use Types Packs/Day [...] PM EDT Tc from Emily, nurse at [facility] requesting paperwork to be sign as soon as possible in order to them be able to admit pt into services. Please contact Emily at [phone] if any question. documented in this encounter Plan of Treatment Upcoming Encounters Date Type Department Care Team (Late st Contact Info) Description 03/07/2025 1:00 PM EDT Office Visit [facility] [address] [place] [address] Name, MD Stef [address] [place] [address] documented as of this encounter Visit Diagnoses Not on filedocumented in this encounter Additional Health Concerns Assessment Noted Time PHQ-9 Depression Total Score: 0 01/28/20 10:49 AM EDT documented as of this encounter Care Teams Accountant Auditor Relationship Specialty Start Date End Date Name, MD Stef [address] [place] [address] PCP - General Family Medicine 01/28/16 [facility] 07/27/24 documented as of this encounter
--- OUTSIDE RECORDS SUMMARY | 2024-12-05 16:09 | XMS_ITS | Encounter Summary ---
Author Organization [employer] [facility] Address [address] [facility] 7t [place] [address] Care Team Providers Care Photographic Processor Name Role Phone Name, Stef ESTRADA Primary Care Provider [phone] Encounter Details Date Type Department Care Team (Late st Contact Info) Description 11/12/2022 Telephone [facility] [address] [place] [address] [phone] Name, MD Stef [address] [place] [address] [phone] Social History Tobacco Use Types Packs/Day Years [...] Description 03/07/2025 1:00 PM EDT Office Visit [facility] [address] [place] [address] [phone] Name, MD Stef [address] [place] [address] [phone] documented as of this encounter Visit Diagnoses Not on filedocumented in this encounter Additional Health Concerns Assessment Noted Time PHQ-9 Depression Total Score: 0 09/22/20 22 10:00 AM EST documented as of this encounter Care Teams Photographic Processor Relationship Specialty Start Date End Date Name, MD Stef [address] [place] [address] PCP - General Family Medicine 01/28/16 [place] [facility] 07/27/24 documented as of this encounter
--- OUTSIDE RECORDS SUMMARY | 2024-12-05 16:09 | XMS_ITS | Clinical Summary ---
Author Organization [employer] Address [address] [facility] 7t [place] [address] Care Team Providers Care Peoplesoft Developer Name Role Phone Name, Stef ESTRADA Primary Care Provider Allergies Active Allergy Reactions Criticality Noted Date [...] Apply topically 2 times daily. 14 g Active melatonin 5 MG tablet Take 1 [...] AT BEDTIME 90 tablet 1 025 Active Multiple Vitamin (multivitamin) capsule Take 1 capsule by mouth Once per day. 30 capsule 11 025 2025 Active amitriptyline (Elavil) 10 MG tablet TAKE [...] Encounters Date Type Department Care Team Description 12/05/2024 1:00 PM EST Office Visit [address] [address] Stef Greer MD Anorexia (Primary Dx); Weight loss; Encounter for immunization; Dementia associated with other underlying disease, with anxiety, unspecified dementia severity (CMS/[facility]) 12/05/[address] [address] Stef Greer MD Durable Medical Equipment (boost) 12/05/2024 Travel 11/30/2024 Telephone [facility] [address] [place], [place] [phone] Stef Greer MD chartprep 11/20/[address] [address] Stef Greer MD 11/16/2024 Orders Only GENERIC EXTERNAL DATA DEPARTMENT Provider, Generic External Data 10/28/2024 Patient Outreach [address] [address] Stef Greer MD Transition Of Care (Tcm) (HDF #2 - Unable to LVM) 10/28/[address] [address] Stef Greer MD Durable Medical Equipment 10/28/[address] [address] Stef Greer MD Hospital Follow-up 10/26/2024 Patient Outreach [address] [place] [address] NameStef MD Transition Of Care (Tcm) (Unable to LVM ) 10/26/2024 Telephone [facility] [address] [place] [address] Jenna Mixon, PharmD 10/26/2024 Refill [facility] [address] [place] [address] Jenna Mixon, PharmD 10/19/2024 Refill [facility] [address] [place] [address] NameStef MD Closed nondisplaced fracture of right clavicle, unspecified part of clavicle, initial encounter; Osteoporosis, unspecified osteoporosis type, unspecified pathological fracture presence; Moderate dementia without behavioral disturbance, psychotic disturbance, mood disturbance, or anxiety, unspecified dementia type (CMS/HCC) 10/19/2024 Refill [facility] [address] [place] [address] Britney Pollard DO Moderate dementia without behavioral disturbance, psychotic disturbance, mood disturbance, or anxiety, unspecified dementia type (CMS/HCC) 10/16/2024 Refill [facility] [address] [place] [address] Stef Greer MD Moderate dementia without behavioral [...] 06/28/2013 Influenza, seasonal, injecta ble, preservative free 12/05/2024,09/22/2022,08/23/2014 Lanie SARS-CoV-2 Vaccination 01/09/2021 MMR 03/19/1998 Moderna [...] (87 lb) 12/05/2024 1:13 PM EST Height 142.2 cm (4' 8 ) 08/01/2024 11:57 AM EDT Body Mass Index 19.51 08/01/2024 11:57 AM EDT Plan of Treatment Upcoming Encounters Date Type Department Care Team (Late st Contact Info) Description 03/07/2025 1:00 PM EDT Office Visit [facility] [address] [place] [phone] Name, MD Stef [address] [place] [address] Health Maintenance Due Date Last Done Comments Alcohol/Substance Use Screening 1952 RSV Patients and Patients Aged 60 years or older (1 - 1-dose 75+ series) 2015 COVID-19 Vaccine ( season) 2024 02/25/2022, 01/09/2021 Depression Screening 01/27/2025 01/28/2024, 01/28/20 24 SDOH Screening 01/27/2025 01/28/2024 Tobacco Screening 12/05/2025 12/05/2024 DTaP/Tdap/Td Vaccines (2 - Td or Tdap) 03/30/2027 03/30/2017, 08/03/2016, 06/05/2003 Lipid Panel 01/27/2029 01/28/2024, 12/03, 07/22/2021 Zoster Vaccines Completed 05/14/2021, 03/11/2021 Pneumococcal Vaccine: 50+ Years Completed 09/22/2022, 08/23/2014, 03/19/1998 Influenza Vaccine Completed 12/05/2024, , 07/24/2021, Additional history exists HIB Vaccines Aged Out No longer eligi [...] dementia severity (CMS/HCC) 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 TROPONIN I HIGH SENSITIVITY 26.6(H) <3.5 - 17.0 ng/L [facility] Comment:The Lal high sens itivity Troponin-I results should beused in conjunction with other diagnostic information suchas ECG, clinical observations and information, and patientsymptoms to aid in the diagnosis of MD. 11/16/2024 6:11 PM EST 11/16/2024 6:12 PM EST Generic External Data Provider LAB BLOOD ORDERAB LES Final Result Performing Organization Address [facility] Co de Phone Number [facility] [address] [place] [phone] * Culture, Urine, Routine (11/16/2024 5:04 PM EST) Urine Urine specimen from urinary conduit / Unknown 11/16/2024 5:04 PM EST 11/16/2024 5:04 PM EST Comment:Urine Cath Narrative [facility] - 11/18/2024 8:46 AM EST [...] Result Performing Organization Address [facility] Co de Phone Number [facility] [address] [place] [phone] * Hold Lavender - Possible Hematology (11/16/2024 4:29 PM EST) Hold Lavender - Possible Hematololgy SEE NOTE [facility] Comment:Specimen will be hel d untested for 8 hours. Call Hematologyif testing is desired. 11/16/2024 4:29 PM EST 11/16/2024 4:52 PM EST us Generic External Data Provider HISTORICAL/NON OR DERABLE LABS Final Result Performing Organization Address [facility]/ZIP Co de Phone Number [facility] [address] [place] [phone] [phone] * HOLD LT BLUE - POSSIBLE COAG (11/16/2024 4:29 PM EST) Hold Lt Blue - Possible Coag SEE NOTE [facility] Comment:Specimen will be hel d untested for 4 hours. Call Hematologyif testing is desired. 11/16/2024 4:29 PM EST 11/16/2024 4:52 PM EST us Generic External Data Provider LAB BLOOD ORDERAB LES Final Result Performing Organization Address [facility] Co de Phone Number [facility] [address] [place] [phone] * (ABNORMAL) Urinalysis, Complete, with Reflex to Culture (11/16/2024 4:29 PM EST) Color Urine Yellow [facility] Appearance Urine Turbid [facility] PH 7.0 5.0 - 9.0 [facility] Glucose Urine UA Negative Negative mg/dL [facility] Urine Blood Large (3+)(A) Negative [facility] Specific [place] - Urine 1.020 1.005 - 1.025 [facility] Urine Protein 30 (1+)(A) Neg-Trace mg/dL [facility] Urine Ketones 15 Negative mg/dL [facility] Nitrite Urine Positive(A) Negative [facility] Leukocyte Esterase Urine Large (3+)(A) Negative [facility] RBC Urine >20(A) 0 - 2 /HPF [facility] Urine WBC >50(A) 0 - 5 /HPF [facility] Urine Squamous Epithelial Cell 6-10 0 - 2 /HPF [facility] Urine Bacteria 3+ None Seen [facility] Hyaline Casts, Urine 6-10 0 - 2 /LPF [facility] 11/16/2024 4:29 PM EST 11/16/2024 4:50 PM EST Narrative [facility] - 11/16/2024 5:04 PM EST Urine, Catheterized us Generic External Data Provider LAB URINE ORDERAB LES Final Result Performing Organization Address [facility] de Phone Number [facility] [address] [place] [phone] * (ABNORMAL) Lipid Panel, Standard (01/28/2024 11:40 AM EDT) Triglycerides 265(H) <150 mg/dL [facility] Comment:Desirable Triglyceri de: less than 150 mg/dLBorderline High Triglyceride 150-199 mg/dLHigh Triglyceride: 200-499 mg/dLVery High Triglyceride: greater than or equal to 5OO mg/dL Cholesterol 212(H) <200 mg/dL [facility] Comment:Desirable Cholestero l: less than 200 mg/dLBorderline High Cholesterol: 200-239 mg/dLHigh Cholesterol: greater than 239 mg/dL LDL Cholesterol Calculated 122(H) <100 mg/dL [facility] Comment:Desirable LDL: less than 100 mg/dLNear Optimal/Above Optimal LDL: 110- 129 mg/dLBorderline High LDL: 130-159 mg/dLHigh LDL: 160-189 mg/dLVery High LDL: greater than or equal to 190 mg/dL HDL Cholesterol 37(L) >40 mg/dL [facility] Comment:Desirable HDL: great er than 40 mg/dL Note: This HDL assay may give artificially low results in patients with liver disease. Blood Venous blood specimen / Unknown 01/28/2024 11:40 AM EDT 01/28/2024 1:30 PM EDT us Stef Name LAB BLOOD ORDERABLES Final Resul t Performing Organization Address City/[facility]/ZIP Co de Phone Number [facility] [address] [place] [address] [phone] from Last 3 Months or Most Recently Relevant to Health Maintenance Insurance [facility] - SCO DENTAL - [facility] Care Teams Peoplesoft Developer Relationship Specialty Start Date End Date Name, MD Stef [address] [place] [address] PCP - General Family Medicine 01/28/16 Yuliya ALFRED 07/27/24
--- OUTSIDE RECORDS SUMMARY | 2024-12-05 16:09 | XMS_ITS | Encounter Summary ---
Author Organization [employer] Address [address] [address] [place] [address] Care Team Providers Care Windows Systems Administrator Name Role Phone Name, Stef ESTRADA Primary Care Provider [phone] Reason for Visit * Reason Onset Date Comments Durable Medical Equipment 10/28/2024 Encounter Details Date Type Department Care Team ([facility] st Contact Info) Description 10/28/2024 Telephone [facility] [address] [place], [place] [phone] Name, MD Stef [address] [place], [place] [phone] Durable Medical Equipment Social History Tobacco Use [...] for bed rails signed and faxed to [facility]. Confirmation received and sent to [facility]. If patient calls to check status on above, please advise them to contact [facility] career and transition teacher . * Telephone Encounter - Elizabeth Chicas - 10/31/2024 10:12 AM EST DME RX for bed rails generated and placed on providers desk for signature. * Telephone Encounter - Cralo Carroll - 10/28/2024 12:35 PM EST Ryne medina [facility] Nurse stating that Pt is requesting Bed rails so that pt dosent Roll of the Bedand hurt Herself. Contact pt Son at [phone] documented in this encounter Plan of Treatment Upcoming Encounters Date Type Department Care Team (Late st Contact Info) Description 03/07/2025 1:00 PM EDT Office Visit [facility] [address] [place] [address] Name, MD Stef [address] [place], [place] [phone] documented as of this encounter Visit Diagnoses Not on filedocumented in this encounter Additional Health Concerns Assessment Noted Time PHQ-9 Depression Total Score: 0 01/28/20 10:49 AM EDT documented as of this encounter Care Teams Windows Systems Administrator Relationship Specialty Start Date End Date Name, MD Stef [address] [place] [address] PCP - General Family Medicine 01/28/16 [place] [facility] 07/27/24 documented as of this encounter
--- OUTSIDE RECORDS SUMMARY | 2024-12-05 16:09 | XMS_ITS | Encounter Summary ---
Author Organization [employer] Address [address] [facility] [address] [facility] [address] [facility] [facility] [address] [place] [address] Care Team Providers Care Real Estate Associate Name Role Phone Name, Stef ESTRADA Primary Care Provider [phone] Reason for Visit * Reason Onset Date Comments Hospital Follow-up 10/28/2024 Encounter Details Date Type Department Care Team ([facility] st Contact Info) Description 10/28/2024 Telephone [facility] [address] [place], [place] [phone] Name, MD Stef [address] [place] [address] Hospital Follow-up Social History Tobacco Use Types [...] PM EST Tc from pt requesting a HDF appt. [place] [facility] [place] of admission: 10/18 Discharge date: 10/20 Diagnosed: Gastritis and UTI Huma states that Pt son told her that they should hold med clopidogrel (Plavix) 75 MG tablet Due to pt having bad Gastritis. Huma said that she looked at the Notes from the Hospital and there is nothing about holding them on the Notes. *Send message to [facility] Clinical Care Coordinators Contact SUPERVISOR [employer]OVING DEPARTMENT to Schedule pt [phone] documented in this encounter Plan of Treatment Upcoming Encounters Date Type Department Care Team ([facility] st Contact Info) Description 03/07/2025 1:00 PM EDT Office Visit [facility] [address] [place] [address] Name, MD Stef [address] [place] [address] documented as of this encounter Visit Diagnoses Not on filedocumented in this encounter Additional Health Concerns Assessment Noted Time PHQ-9 Depression Total Score: 0 01/28/20 24 10:49 AM EDT documented as of this encounter Care Teams Real Estate Associate Relationship Specialty Start Date End Date NameStef MD [address] [place] [address] PCP - General Family Medicine 01/28/16 Yuliya ALFRED 07/27/24 documented as of this encounter
--- OUTSIDE RECORDS SUMMARY | 2024-12-05 16:09 | XMS_ITS | Encounter Summary ---
Demographics Address [address] [place] [address] Home Phone Work Phone Mobile Phone Preferred Language es Marital Status Unknown Mormonism Affiliation Unknown Race Other Race Ethnic Group or Author Organization [employer] Address [address] [facility] [place] [address] Care Team Providers Care Aviation Tactical Readiness Officer Name Role Phone Name, Stef ESTRADA Primary Care Provider [phone] Encounter Details Date Type Department Care Team [...] 1:00 PM EDT Office Visit [facility] [address] [place] [address] Name, MD Stef [address] [place] [address] documented as of this encounter Procedures Procedure [...] HIGH SENSITIVITY 26.6(H) <3.5 - 17.0 ng/L [facility] Comment:The Lal high sens itivity Troponin-I results should beused in conjunction with other diagnostic information suchas ECG, clinical observations and information, and patientsymptoms to aid in the diagnosis of IA. 11/16/2024 6:11 PM EST 11/16/2024 6:12 PM EST Generic External Data Provider LAB BLOOD ORDERAB LES Final Result Performing Organization Address [facility] de Phone Number [facility] [address] [place] [phone] * Culture, Urine, Routine (11/16/2024 5:04 PM EST) Urine Urine specimen from urinary conduit / Unknown 11/16/2024 5:04 PM EST 11/16/2024 5:04 PM EST Comment:Urine Cath Narrative [facility] - 11/18/2024 8:46 AM EST Klebsiella pneumoniae Quant > 100,000 cfu/mL Klebsiella pneumoniae: Ampicillin >=32(R) Klebsiella pneumoniae: Cefazolin >=32(R) Klebsiella pneumoniae: Cefepime <=0.12(S) Klebsiella pneumoniae: Ceftriaxone <=0.25(S) Klebsiella pneumoniae: Ciprofloxacin <=0.06(S) Klebsiella pneumoniae: Gentamicin <=1(S) Klebsiella pneumoniae: Nitrofurantoin 64(I) Klebsiella pneumoniae: Trimethoprim/Sulfamethoxazole <=20(S) Specimen Source: Urine Catheterized Generic External Data Provider LAB MICROBIOLOGY - GENERAL ORDERABLES Final Result Performing Organization Address [facility] de Phone Number [facility] [address] [place] [phone] * (ABNORMAL) High Sensitivity Troponin I (11/16/2024 4:29 PM EST) TROPONIN I HIGH SENSITIVITY 28.5(H) <3.5 - 17.0 ng/L [facility] Comment:The Lal high sens itivity Troponin-I results should beused in conjunction with other diagnostic information suchas ECG, clinical observations and information, and patientsymptoms to aid in the diagnosis of IA. 11/16/2024 4:29 PM EST 11/16/2024 4:50 PM EST Generic External Data Provider LAB BLOOD ORDERAB LES Final Result Performing Organization Address [facility]/ZIP Co de Phone Number [facility] [address] [place] [address] [phone] * (ABNORMAL) Urinalysis, Complete, with Reflex to Culture (11/16/2024 4:29 PM EST) Color Urine Yellow [facility] Appearance Urine Turbid [facility] PH 7.0 5.0 - 9.0 [facility] Glucose Urine UA Negative Negative mg/dL [facility] Urine Blood Large (3+)(A) Negative [facility] Specific [place] - Urine 1.020 1.005 - 1.025 [facility] Urine Protein 30 (1+)(A) Neg-Trace mg/dL [facility] Urine Ketones 15 Negative mg/dL [facility] Nitrite Urine Positive(A) Negative [facility] Leukocyte Esterase Urine Large (3+)(A) Negative [facility] RBC Urine >20(A) 0 - 2 /HPF [facility] Urine WBC >50(A) 0 - 5 /HPF [facility] Urine Squamous Epithelial Cell 6-10 0 - 2 /HPF [facility] Urine Bacteria 3+ None Seen [facility] Hyaline Casts, Urine 6-10 0 - 2 /LPF [facility] 11/16/2024 4:29 PM EST 11/16/2024 4:50 PM EST Narrative [facility] - 11/16/2024 5:04 PM EST Urine, Catheterized us Generic External Data Provider LAB URINE ORDERAB LES Final Result Performing Organization Address [facility] Co de Phone Number [facility] [address] [place] [address] [phone] * Hold Lavender - Possible Hematology (11/16/2024 4:29 PM EST) Hold Lavender - Possible Hematololgy SEE NOTE [facility] Comment:Specimen will be hel d untested for 8 hours. Call Hematologyif testing is desired. 11/16/2024 4:29 PM EST 11/16/2024 4:52 PM EST us Generic External Data Provider HISTORICAL/NON OR DERABLE LABS Final Result Performing Organization Address [facility] de Phone Number [facility] [address] [place] [address] [phone] * HOLD LT BLUE - POSSIBLE COAG (11/16/2024 4:29 PM EST) Hold Lt Blue - Possible Coag SEE NOTE [facility] Comment:Specimen will be hel d untested for 4 hours. Call Hematologyif testing is desired. 11/16/2024 4:29 PM EST 11/16/2024 4:52 PM EST us Generic External Data Provider LAB BLOOD ORDERAB LES Final Result Performing Organization Address [facility] de Phone Number [facility] [address] [place] [phone] [phone] documented in this encounter Visit Diagnoses Not on filedocumented in this encounter Additional Health Concerns Assessment Noted Time PHQ-9 Depression Total Score: 0 01/28/20 24 10:49 AM EDT documented as of this encounter Care Teams Aviation Tactical Readiness Officer Relationship Specialty Start Date End Date Name, MD Stef [address] [place] [phone] PCP - General Family Medicine 01/28/16 [facility] documented as of this encounter
--- OUTSIDE RECORDS SUMMARY | 2024-12-05 16:10 | XMS_ITS | Encounter Summary ---
Author Organization [employer] Address [address] [facility] [address] [place] [address] Care Team Providers Care Cell Support Operator Name Role Phone Name, Stef ESTRADA Primary Care Provider [phone] Reason for Visit * Reason Onset Date Comments chartprep 11/30/2024 Encounter Details Date Type Department Care Team ([facility] st Contact Info) Description 11/30/2024 Telephone [facility] [address] [place], [place] [phone] Name, MD Stef [address] [place] [address] chartprep Social History Tobacco Use Types Packs/Day Years [...] encounter Miscellaneous Notes * Telephone Encounter - Janneth Sargent [place] - 11/30/2024 2:11 PM EST Chart Prep Labs: done Images: not applicable Vaccines due: yes Covid, flu, rsv. Referrals: n/a Screenings: n/a Overdue care gaps: Sbirt, SDOH, PHQ-9, MIKAELA-7 documented in this encounter Plan of Treatment Upcoming Encounters Date Type Department Care Team (Late st Contact Info) Description 03/07/2025 1:00 PM EDT Office Visit [facility] [address] [place] [address] Name, MD Stef [address] [place] [address] documented as of this encounter Visit Diagnoses Not on filedocumented in this encounter Additional Health Concerns Assessment Noted Time PHQ-9 Depression Total Score: 0 01/28/20 10:49 AM EDT documented as of this encounter Care Teams Cell Support Operator Relationship Specialty Start Date End Date Name, MD Stef [address] [place] [phone] PCP - General Family Medicine 01/28[facility]16 [facility] documented as of this encounter
--- OUTSIDE RECORDS SUMMARY | 2024-12-05 16:10 | XMS_ITS | Encounter Summary ---
Author Organization [facility] Address [address] [facility] 7[address] [place] [address] Care Team Providers Care Production Machinist Name Role Phone Name, Stef ESTRADA Primary Care Provider [phone] Reason for Visit * Reason Onset Date Comments Durable Medical Equipment 12/05/2024 boost Encounter Details Date Type Department Care Team ([facility] st Contact Info) Description 12/05/2024 Telephone [facility] [address] [place], [place] [phone] Name, MD Stef [address] [place] [address] Durable Medical Equipment (boost) Social History Tobacco Use Types Packs/Day Years [...] * Telephone Encounter - Elizabeth Chicas - 12/05/2024 2:51 PM EST DME RX for Boost generated and placed on providers desk for signature. * Telephone Encounter - Elizabeth Chicas - 12/05/2024 2:51 PM EST ----- Message from Stef Greer MD sent at 12/05/2024 1:28 PM EST ----- Hi. This patient has [employer] insurance. She has dementia anorexia and weight loss. I am trying to get her a boost or Ensure cans to use 3 times a day. documented in this encounter Plan of Treatment Upcoming Encounters Date Type Department Care Team (Late st Contact Info) Description 03/07/2025 1:00 PM EDT Office Visit [facility] [address] [place] [address] Name, MD Stef [address] [place] [address] documented as of this encounter Visit Diagnoses Not on filedocumented in this encounter Additional Health Concerns Assessment Noted Time PHQ-9 Depression Total Score: 0 01/28/20 10:49 AM EDT documented as of this encounter Care Teams Production Machinist Relationship Specialty Start Date End Date Name, MD Stef [address] [place] [address] PCP - General Family Medicine 01/28/16 Yuliya ALFRED 07/27/24 documented as of this encounter
--- OUTSIDE RECORDS SUMMARY | 2024-12-05 16:10 | XMS_ITS | Encounter Summary ---
Demographics Address [address] [place] [address] Home Phone Work Phone Mobile Phone Preferred Language es Marital Status Unknown Advent Affiliation Unknown Race Other Race Ethnic Group or Author Organization [employer] Address [address] [facility] [place] [address] Care Team Providers Care Windlasser Name Role Phone Name, Stef ESTRADA Primary Care Provider [phone] Encounter Details Date Type Department Care Team (Latest Contact Info) Description 12/05/2024 Travel Social History Tobacco Use Types Packs/Day Years [...] Description 03/07/2025 1:00 PM EDT Office Visit [facility] [address] [place] [address] Name, MD Stef [address] [place] [address] documented as of this encounter Visit Diagnoses Not on filedocumented in this encounter Additional Health Concerns Assessment Noted Time PHQ-9 Depression Total Score: 0 01/28/20 24 10:49 AM EDT documented as of this encounter Care Teams Windlasser Relationship Specialty Start Date End Date Name, MD Stef [address] [place] [address] PCP - General Family Medicine 01/28/16 Yuliya ALFRED 07/27/24 documented as of this encounter
[2024-12-05 16:28] LABS: Hematocrit 49.3 % (37.0-47.0); Mean Corpuscular HGB Conc 34.5 g/dl (31.0-35.0); Mean Corpuscular Hemoglobin 32.9 pg (27.0-33.0); Mean Corpuscular Volume 95.4 fL (80.0-98.0); Platelet Count 216 X10*3/uL (160-400); Red Blood Count 5.17 X10*6/uL (4.20-5.50); Red Cell Distribution Width 15.4 % (11.0-16.0); White Blood Count 5.9 X10*3/uL (4.8-10.8)
[2024-12-05 17:21] LABS: Anion Gap 17 (12-20); Blood Urea Nitrogen 9 mg/dL (9-16); Calcium 9.9 mg/dL (8.4-10.2); Carbon Dioxide 20 mmol/L (22-29); Chloride 103 mmol/L (96-108); Estimated Glomerular Filt Rate > 60; Glucose Random 117 mg/dL (60-115); Magnesium 2.3 mg/dL (1.6-2.6); Potassium 3.9 mmol/L (3.3-5.1); Sodium 136 mmol/L (135-145)
[2024-12-05 17:32] LABS: TSH reflex Free T4 0.28 uIU/mL (0.32-4.0)
[2024-12-05 18:23] LABS: Free T4 (Free Thyroxine) 1.29 ng/dL (0.71-1.85)
== END 2024-12-05 13:43 | disposition home or self-care (01) ==
LOC: HO.HHCL 13:42
PROVIDERS: Internal Medicine; Visit Provider Internal Medicine Geriatric Medicine
DX: E87.6 Hypokalemia (principal); R63.0 Anorexia; R63.4 Abnormal weight loss; R10.13 Epigastric pain; K25.9 Gastric ulcer, unspecified as acute or chronic, without hemorrhage or perforation
CPT/HCPCS: 36415; 80048; 83735; 84439; 84443; 85027

== ENCOUNTER 2024-12-21 09:34 | Inpatient (IN) | payer OTHER, SELFPAY ==
[2024-12-21 09:38] VITALS: BP 119/73; PULSE 93; RESP 14; TEMP 36.6; O2SAT 100; BMI 18.0
--- NOTE | 2024-12-21 11:34 | ED_ITS ---
HPI - General Adult General Chief complaint: Recheck/Abnormal Lab/Rx Stated complaint: Infection In Chest -Referred From Gastro Time Seen by Provider: 12/21/24 13:52 History of Present Illness ED Provider: Jonathan BEATTY narrative: The patient is an 84-year-old woman who was found to have esophagitis with Ellie glabrata 5 months ago. She had had an upper endoscopy on 08/05/2024. It seems as though there was a discussion with the family about managing this issue. The patient was seen as an outpatient by Dr. Vogel on 10/03/2024. At the time that the patient was in Dr. Vogel's office she did not seem to be significantly symptomatic and no treatment regimen was recommended. However it seems the patient has been complaining of pain with swallowing when she eats or takes her pills and Dr. Aragon at this point feels treatment would be indicated. Related Data Home Medications ?Medication ?Instructions ?Recorded ?Confirmed amitriptyline 10 mg tablet 10 mg PO BEDTIME 08/02/20 11/25/24 albuterol sulfate 90 mcg/actuation 2 puff PO Q4H PRN Wheezing 06/27/21 11/25/24 aerosol inhaler mirtazapine 30 mg tablet 30 mg PO BEDTIME 06/27/21 11/25/24 polyethylene glycol 3350 17 17 g PO DAILY PRN Constipation 06/27/21 11/25/24 gram/dose oral powder sertraline 25 mg tablet 1 tab PO DAILY 06/27/21 11/25/24 clopidogrel 75 mg tablet 1 tab PO DAILY 09/02/22 11/25/24 calcium 500 mg (as 1 tab PO BID 07/23/24 11/25/24 carbonate)-vitamin D3 10 mcg (400 unit) tablet (Oyster Shell Calcium-Vitamin D3) melatonin 5 mg tablet 5 mg PO BEDTIME PRN insomnia 07/23/24 11/25/24 acetaminophen 500 mg tablet 500 mg PO Q6H PRN Fever Or Pain 08/04/24 11/25/24 multivitamin 1 tab PO QAM 12/21/24 Previous Rx's ?Medication ?Instructions ?Recorded atorvastatin 40 mg tablet 40 mg PO DAILY #90 tabs 02/26/21 pantoprazole 40 mg tablet,delayed 1 tab PO BID@0630,1630 #180 tabs 08/09/24 release ondansetron 4 mg disintegrating 4 mg PO Q6-8H PRN nausea and 10/18/24 tablet vomiting #7 tabs sucralfate 1 gram tablet 1 g PO TID #90 tabs 10/18/24 metoprolol succinate 25 mg 12.5 mg (1/2 x 25 mg) PO DAILY #90 10/20/24 tablet,extended release 24 hr tabs cefuroxime axetil 250 mg tablet 250 mg PO BID 7 days #14 tabs 11/16/24 Allergies Allergy/AdvReac Type Severity Reaction Status Date / Time No Known Allergies Allergy Unknown UNKNOWN Verified 12/21/24 09:40 [NO KNOWN ALLERGIES] Review of Systems 2 Review of Systems: Yes all other systems are reviewed and are negative [facility] Past Medical History Medical History Nausea & vomiting Gallstones Abnormal nuclear stress test HLD (hyperlipidemia) HTN (hypertension) CVA, old, disturbances of vision (~09/2019) NSTEMI (non-ST elevated myocardial infarction) Dementia Coronary artery disease Surgical History History of esophagogastroduodenoscopy (EGD) Family History Family History Father No problems noted. Mother No problems noted. Social History Social History Household Members: Unknown / Unable to assess Housing: Unknown / Unable to assess Alcohol intake: never Comment: 1:1 Patient Tobacco Use Status: Never used Tobacco Tobacco use type: Smokeless Tobacco Years Smoked: Chews tobacco Smoked in Last 30 Days: No e-Cigarette/Vaping Use: Never Used Second Hand Smoke Exposure: No Use of substances other than those prescribed or required for medical reasons: No Advance Directives: Yes Advance Directives on File: Yes Advance Directives Date on File: 09/02/22 Nutrition Risks: No Nutritional Risk service: No Current occupational status: retired and disabled 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 She seems to have significant dementia. She seems quite chronically ill and is quite frail looking. She does not seem obviously acutely ill however. HENMT Other: Face is symmetrical, mucous membranes moist. Eyes General: appearance normal, both eyes and all related structures Neck Neck: Yes full ROM and Yes no JVD Resp Effort & Inspection: normal respiratory effort Auscultation: clear to auscultation bilaterally Cardio Rate: regular rate Rhythm: regular rhythm Heart sounds: S1 normal heart sound present and S2 normal heart sound present GI Other: Mild epigastric tenderness. Otherwise the abdomen is flat and soft. Skin Other: Skin is pale and dry Neuro Other: The patient is awake and alert. She has a paucity of speech. Face is symmetrical. Eye movements are normal. Neck is supple. She seems to have symmetrical tone in her extremities. No obvious lateralizing findings. She seems to have some degree of dementia. Extrem Other: No calf swelling or tenderness, no peripheral edema. Course Course Course Narrative: This is a rapid medical exam performed by Dahlia Doss PA-C. The patient is a 84-year-old female with a history of gastritis, gastric ulcer, who presents from Gastroenterology given need for admission. We received an expect note, the patient was sent by GI she requires admission for IV antifungal therapy for esophagitis secondary to candidal infection. Screening labs were ordered. The patient was stable and can return to the waiting room pending her full medical assessment. Medications Administered Generic Name Dose Route Start Last Admin Trade Name Freq PRN Reason Stop Dose Admin Enoxaparin Sodium 40 mg 12/21/24 18:00 12/21/24 18:24 Enoxaparin Sodium 40 Mg/0.4 Ml Syringe SUBCUT 40 mg Q24H TAL Administration Discontinued Medications Generic Name Dose Route Start Last Admin Trade Name Freq PRN Reason Stop Dose Admin Caspofungin 70 mg/ Sodium 250 mls @ 250 mls/hr 12/21/24 16:39 12/21/24 17:41 Chloride IV 12/21/24 17:38 250 mls/hr ONCE ONE Administration Pantoprazole Sodium 40 mg 12/21/24 16:20 12/21/24 16:32 Pantoprazole Sodium 40 Mg/10 Ml Vial IVPUSH 12/21/24 16:21 40 mg ONCE ONE Administration Medical Decision Making Medical Decision Making [facility] Narrative: The patient is an 84-year-old woman who lives at home with her family. She has a history of dementia. She has previously been diagnosed with an esophagitis syndrome. Apparently she was found to have Ellie glabrata from her esophagus. She has had worsening pain with eating and swallowing, presumably related to her esophagitis. Yesterday Dr. Aragon called the family and recommended the patient come to the hospital for IV treatment of her candidate glabrata. Apparently Dr. Aragon had discussed the case with Dr. Vogel of Infectious Disease. The patient seems stable at the moment. She will be admitted for further care. Lab Data 12/21/24 14:23 12/21/24 14:23 Labs: Lab Results 12/21/24 Range/Units 14:23 WBC 7.7 (4.8-10.8) X10*3/uL RBC 4.02 L D (4.20-5.50) X10*6/uL Hgb 13.1 D (12.0-16.0) g/dl Hct 38.2 D (37.0-47.0) % MCV 95.0 (80.0-98.0) fL MCH 32.6 (27.0-33.0) pg MCHC 34.3 (31.0-35.0) g/dl RDW 14.1 (11.0-16.0) % Plt Count 392 D (160-400) X10*3/uL MPV 10.7 (9.4-12.3) fL Immature Gran % (Auto) 0.4 (0.0-0.4) % Neut % (Auto) 48.8 (45-73) % Lymph % (Auto) 36.9 (20-40) % Monroe % (Auto) 12.4 H (2-11) % Eos % (Auto) 0.9 (0-4) % Baso % (Auto) 0.6 (0-2) % Lymph # (Auto) 2.9 (1.2-4.9) X10*3/uL Monroe # (Auto) 1.0 (0.1-1.2) X10*3/uL Eos # (Auto) 0.1 (0.0-0.4) X10*3/uL Baso # (Auto) 0.1 (0.0-0.2) X10*3/uL Abs Immat Gran (auto) 0.03 (0.00-0.03) X10*3/uL Absolute Neuts (auto) 3.8 (2.0-8.3) x10*3/uL Absolute Nucleated RBC 0.000 (0.0-0.012) X10*3/uL Nucleated RBC % (auto) 0.0 (0.0-0.2) /100WBC Sodium 137 (135-145) mmol/L Potassium 4.7 D (3.3-5.1) mmol/L Chloride 102 (96-108) mmol/L Carbon Dioxide 28 (22-29) mmol/L Anion Gap 12 (12-20) BUN 12 (9-16) mg/dL Creatinine 0.62 (0.5-1.4) mg/dL Estim Creat Clear Calc 43.0 Estimated GFR > 60 Random Glucose 113 (60-115) mg/dL Calcium 9.7 (8.4-10.2) mg/dL Total Bilirubin 0.2 (0.0-1.0) mg/dL Direct Bilirubin < 0.2 (0.0-0.5) mg/dL AST 34 H (5-31) U/L ALT 12 (0-31) U/L Alkaline Phosphatase 66 (39-117) U/L Total Protein 7.9 (6.5-8.0) g/dL Albumin 3.2 L (3.5-5.0) g/dL Lipase 32 (8-78) U/L Discharge Plan Discharge Clinical Impression: Esophagitis, Ellie glabrata infection Patient Disposition: Admitted As Inpatient
[2024-12-21 14:26] LABS: MANUAL DIFF FLAG NO
[2024-12-21 14:33] LABS: Basophils Absolute Auto 0.1 X10*3/uL (0.0-0.2); Basophils Percent Auto 0.6 % (0-2); Eosinophils Absolute Auto 0.1 X10*3/uL (0.0-0.4); Eosinophils Percent Auto 0.9 % (0-4); Hematocrit 38.2 % (37.0-47.0); Hemoglobin 13.1 g/dl (12.0-16.0); Imm Gran Abs Auto 0.03 X10*3/uL (0.00-0.03); Imm Gran Pct Auto 0.4 % (0.0-0.4); Lymphocytes Absolute Auto 2.9 X10*3/uL (1.2-4.9); Lymphocytes Percent Auto 36.9 % (20-40); Mean Corpuscular HGB Conc 34.3 g/dl (31.0-35.0); Mean Corpuscular Hemoglobin 32.6 pg (27.0-33.0); Mean Platelet Volume 10.7 fL (9.4-12.3); Monocytes Percent Auto 12.4 % (2-11); Neutrophils Absolute Auto 3.8 x10*3/uL (2.0-8.3); Neutrophils Percent Auto 48.8 % (45-73); Platelet Count 392 X10*3/uL (160-400); Red Blood Count 4.02 X10*6/uL (4.20-5.50); Red Cell Distribution Width 14.1 % (11.0-16.0); White Blood Count 7.7 X10*3/uL (4.8-10.8)
[2024-12-21 14:35] VITALS: BP 117/53; PULSE 94; RESP 18; O2SAT 97
[2024-12-21 14:52] LABS: Alanine Aminotransferase 12 U/L (0-31); Albumin Level 3.2 g/dL (3.5-5.0); Alkaline Phosphatase 66 U/L (39-117); Anion Gap 12 (12-20); Aspartate Amino Transferase 34 U/L (5-31); Bilirubin Direct < 0.2 mg/dL (0.0-0.5); Bilirubin Total 0.2 mg/dL (0.0-1.0); Blood Urea Nitrogen 12 mg/dL (9-16); Calcium 9.7 mg/dL (8.4-10.2); Carbon Dioxide 28 mmol/L (22-29); Chloride 102 mmol/L (96-108); Estimated Glomerular Filt Rate > 60; Glucose Random 113 mg/dL (60-115); Lipase 32 U/L (8-78); Potassium 4.7 mmol/L (3.3-5.1); Sodium 137 mmol/L (135-145); Total Protein 7.9 g/dL (6.5-8.0)
[2024-12-21] MEDS: Pantoprazole Sodium 40 MG/10 ML VIAL IVPUSH (16:32)
--- NOTE | 2024-12-21 16:42 | PM.IMHP ---
History of Present Illness Date of Service: 12/21/24 Chief Complaint: difficulty swallowing 84yo F with HLD, HTN, CVA, CAD on Plavix and statin, and dementia who has been losing weight due to poor appetite and swallowing discomfort. She was admitted here in August and an EGD on 08/05/24 showed candidal esophagitis with cultures growing Ellie glabrata. She was treated with a 2-week course of fluconazole. She was sent in on the advice of her television specialist for worsening epigastric pain when swallowing food or pills. No fever or chills. No shortness of breath. No nausea or vomiting. Review of Systems Review of Systems: Yes all other systems are reviewed and are negative [facility] Medical History Nausea & vomiting Gallstones Abnormal nuclear stress test HLD (hyperlipidemia) HTN (hypertension) CVA, old, disturbances of vision (~09/2019) NSTEMI (non-ST elevated myocardial infarction) Dementia Coronary artery disease Family History Father No problems noted. Mother No problems noted. Surgical History History of esophagogastroduodenoscopy (EGD) Social History Household Members: Unknown / Unable to assess Housing: Unknown / Unable to assess Alcohol intake: never Comment: 1:1 Patient Tobacco Use Status: Never used Tobacco Tobacco use type: Smokeless Tobacco Years Smoked: Chews tobacco Smoked in Last 30 Days: No e-Cigarette/Vaping Use: Never Used Second Hand Smoke Exposure: No Use of substances other than those prescribed or required for medical reasons: No Advance Directives: Yes Advance Directives on File: Yes Advance Directives Date on File: 09/02/22 service: No Current occupational status: retired and disabled 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 Meds Allergies Allergy/AdvReac Type Severity Reaction Status Date / Time No Known Allergies Allergy Unknown UNKNOWN Verified 12/21/24 09:40 [NO KNOWN ALLERGIES] Active Medications: Current Medications Voriconazole 200 mg/ Sodium (Chloride) 100 mls @ 50 mls/hr IV Q12H TAL Caspofungin 70 mg/ Sodium (Chloride) 250 mls @ 250 mls/hr IV ONCE ONE Stop: 12/21/24 17:38 Caspofungin 50 mg/ Sodium (Chloride) 250 mls @ 250 mls/hr IV Q24H [facility] Home Medications ?Medication ?Instructions ?Recorded ?Confirmed ?Last Taken ?Type amitriptyline 10 mg tablet 10 mg PO BEDTIME 08/02/20 11/25/24 Unknown History albuterol sulfate 90 mcg/actuation 2 puff PO Q4H PRN Wheezing 06/27/21 11/25/24 Unknown History aerosol inhaler mirtazapine 30 mg tablet 30 mg PO BEDTIME 06/27/21 11/25/24 Unknown History polyethylene glycol 3350 17 17 g PO DAILY PRN Constipation 06/27/21 11/25/24 Unknown History gram/dose oral powder sertraline 25 mg tablet 1 tab PO DAILY 06/27/21 11/25/24 Unknown History clopidogrel 75 mg tablet 1 tab PO DAILY 09/02/22 11/25/24 Unknown History calcium 500 mg (as 1 tab PO BID 07/23/24 11/25/24 Unknown History carbonate)-vitamin D3 10 mcg (400 unit) tablet (Oyster Shell Calcium-Vitamin D3) melatonin 5 mg tablet 5 mg PO BEDTIME PRN insomnia 07/23/24 11/25/24 Unknown History acetaminophen 500 mg tablet 500 mg PO Q6H PRN Fever Or Pain 08/04/24 11/25/24 Unknown History multivitamin 1 tab PO QAM 12/21/24 Unknown History Physical Exam Vital Signs and Narrative: Vital Signs: Last Vital Signs Temp 97.8 F 12/21/24 09:38 Pulse 94 12/21/24 14:35 Resp 18 12/21/24 14:35 BP 117/53 L 12/21/24 14:35 Pulse Ox 97 12/21/24 14:35 O2 Del Method Room Air 12/21/24 14:35 BMI result Body Mass Index 18.0 Gen: in no acute distress, significant muscle wasting HEENT: sclera anicteric, moist mucus membranes, no thrush Neck: supple Lungs: clear to auscultation bilaterally Heart: regular rate and rhythm, no murmurs Abd: soft, non-tender, non-distended Ext: no edema Skin: warm/well-perfused Neuro: alert and oriented to self only, moving all extremities Psych: appropriate affect Results Labs 12/21/24 14:23 12/21/24 14:23 Labs: Laboratory Results - last 24 hr 12/21/24 14:23 MCV 95.0 MCH 32.6 MCHC 34.3 RDW 14.1 Plt Count 392 D MPV 10.7 Immature Gran % (Auto) 0.4 Neut % (Auto) 48.8 Lymph % (Auto) 36.9 [place] % (Auto) 12.4 H Eos % (Auto) 0.9 Baso % (Auto) 0.6 Lymph # (Auto) 2.9 [place] # (Auto) 1.0 Eos # (Auto) 0.1 Baso # (Auto) 0.1 Abs Immat Gran (auto) 0.03 Absolute Neuts (auto) 3.8 Absolute Nucleated RBC 0.000 Nucleated RBC % (auto) 0.0 Anion Gap 12 Estim Creat Clear Calc 43.0 Estimated GFR > 60 Random Glucose 113 Calcium 9.7 Total Bilirubin 0.2 Direct Bilirubin < 0.2 AST 34 H ALT 12 Alkaline Phosphatase 66 Total Protein 7.9 Albumin 3.2 L Lipase 32 Assessment and Plan (1) Candidiasis, esophageal: Status: Acute Plan 84yo F with HLD, HTN, CVA, CAD on Plavix and statin, and dementia with documented Ellie glabrata esophagitis on EGD in August 2024 treated with fluconazole presenting with ongoing weight loss and swallowing discomfort. Likely due to Ellie glabrata esophagitis with some degree of azole resistance. C. glabrata esophagitis - admit to M/S, treat with caspofungin IV, consult GI + Infectious Disease moderate protein-calorie malnutrition - Nutrition consult, supplements CAD hx CVA - ASA + clopidogrel + metoprolol succinate + atorvastatin gastritis - PPI + sucralfate HTN - metoprolol succinate dementia - continue sertraline + mirtazapine VTE prophylaxis - enoxaparin dispo - TBD code status - full I anticipate that the patient will stay at least 2 midnights as an inpatient in the hospital due to the above reasons. It is neither reasonable nor safe to care for them in a less acute setting. Quality Stroke Does the patient have a stroke diagnosis?: No VTE Prior VTE?: No VTE Risk Level:: Medical - moderate - high VTE Device Contraindication: N/A - Device Ordered VTE Drug Contraindication: N/A - Med Ordered
[2024-12-21] MEDS: Caspofungin Acetate 70 MG in 0.9 % Sodium Chloride 250 ML 250 MG IV (17:41)
[2024-12-21] MEDS: Enoxaparin Sodium 40 MG/0.4 ML SYRINGE SUBCUT (18:24)
[2024-12-21 18:44] VITALS: BP 105/57; PULSE 68; RESP 18; TEMP 36.5; O2SAT 98
--- NOTE | 2024-12-21 20:13 | ECG_ITS ---
Test Reason : WEAKNESS Blood Pressure : */* mmHG Vent. Rate : 71 BPM Atrial Rate : 71 BPM P-R Int : 142 ms QRS Dur : 82 ms QT Int : 432 ms P-R-T Axes : 47 -6 27 degrees QTcB Int : 469 ms Sinus rhythm with occasional Premature ventricular complexes Possible Lateral infarct (cited on or before 18-Oct-2024) Abnormal ECG When compared with ECG of 16-Nov-2024 15:57, Premature ventricular complexes are now Present Referred By: Emiliano Castillo Electronically Signed By: Chun Pritchett
--- NOTE | 2024-12-21 20:42 | PHA.MEDREC ---
Pharmacy Consult ? Medication Reconciliation Pharmacy has completed the medication reconciliation. Patient and son didnt know med so had to utilize claim history. Some medications havent been filled since jul provider notified
[2024-12-21 21:12] VITALS: BP 99/54; PULSE 74; RESP 18; TEMP 37.1; O2SAT 98
[2024-12-21] MEDS: Amitriptyline HCl 10 MG TABLET PO (23:09)
[2024-12-21] MEDS: Mirtazapine 30 MG TABLET PO (23:09)
[2024-12-21 23:40] VITALS: BP 107/59; PULSE 61; RESP 16; TEMP 36.6; O2SAT 95
--- NOTE | 2024-12-21 23:41 | MHC.EDTECH ---
This pct assumed care of Patient at 2300 ,vitals taken ,Patient was incontinent of urine ,Renetta care given ,Pt was assisted to drink sips of water ,Patient was reposition and boosted up in bed ,All safety measure in Place ,Patient resting quietly in bed .
[2024-12-22] VITALS (8 sets, daily range): BP systolic 97–116; BP diastolic 42–74; PULSE 63–89; RESP 12–18; TEMP 36.3–36.9; O2SAT 94–100; BMI 18.0
--- NOTE | 2024-12-22 02:03 | MHC.EDTECH ---
0200 rounding done ,Patient awake resting quietly in bed ,
--- NOTE | 2024-12-22 03:53 | MHC.EDTECH ---
Patient awake started to climb oob ,was assisted to bedside commode ,void ,Noni care given ,Patient back in bed ,vitals taken ,warm blanket given ,all safety measure in Place .
[2024-12-22 05:16] LABS: Hematocrit 36.8 % (37.0-47.0); Hemoglobin 12.4 g/dl (12.0-16.0); Mean Corpuscular HGB Conc 33.7 g/dl (31.0-35.0); Mean Corpuscular Volume 97.9 fL (80.0-98.0); Mean Platelet Volume 10.6 fL (9.4-12.3); Platelet Count 398 X10*3/uL (160-400); Red Blood Count 3.76 X10*6/uL (4.20-5.50); Red Cell Distribution Width 14.2 % (11.0-16.0); White Blood Count 6.7 X10*3/uL (4.8-10.8)
[2024-12-22 05:39] LABS: Alanine Aminotransferase 7 U/L (0-31); Albumin Level 3.1 g/dL (3.5-5.0); Anion Gap 11 (12-20); Aspartate Amino Transferase 20 U/L (5-31); Bilirubin Total 0.2 mg/dL (0.0-1.0); Blood Urea Nitrogen 9 mg/dL (9-16); Calcium 9.4 mg/dL (8.4-10.2); Carbon Dioxide 26 mmol/L (22-29); Chloride 107 mmol/L (96-108); Estimated Glomerular Filt Rate > 60; Glucose Random 105 mg/dL (60-115); Potassium 3.6 mmol/L (3.3-5.1); Sodium 140 mmol/L (135-145)
[2024-12-22 05:49] LABS: Alkaline Phosphatase 73 U/L (39-117)
[2024-12-22] MEDS: 0.9 % Sodium Chloride Flush 3 ML SYRINGE IVFLUSH ×3 (05:52→15:52)
[2024-12-22 06:12] LABS: Folate 9.6 ng/mL (> or = 4.0); Vitamin B12 433 pg/mL (200-900)
--- NOTE | 2024-12-22 06:24 | MHC.EDTECH ---
0600 rounding done ,vitals taken ,Patient awake ,no apparent distress noted . All safety measure in Place .
[2024-12-22] MEDS: Pantoprazole Sodium 20 MG TABLET.DR 40 MG PO (06:28)
--- NOTE | 2024-12-22 07:34 | PM.GICN ---
History of Present Illness Data of Consult Service Date: 12/22/24 Requesting physician: Serene Hoyt Primary Care Provider: Stef Greer MD HPI Reason for consult: Ellie glabrata esophagitis 84 year old Yemeni-speaking female with HLD, HTN, CVA, CAD on Plavix and statin, and dementia seen at [facility] on 12/21/24 with dysphagia, poor appetite, decreased PO intake associated with wt loss. Pt is known to me from her previous hospitalization in August,. 08/05/24 EGD showed ellie esophagitis with cultures growing Ellie glabrata. She was treated with a 2-week course of fluconazole and discharged on PO Omeprazole. On GI FU, pt's family expressed concern regarding poor PO inatke and wt loss and requested PEG tube placement for nutritional support. Due to concern for persistent infection with Ellie glabrata (which can be resistant to Fluconazole) Pt was discussed with Dr Vogel (ID) and advised hospitalization for treatment of Ellie Glabrata with IV Caspofungin IV,. Pt denied fever or chills, shortness of breath, nausea or vomiting. Review of Systems Review of Systems: Yes all other systems are reviewed and are negative Neurologic: Reports confusion Psychiatric: Psychiatric: Reports confusion PMFSH Past Medical History Medical History Nausea & vomiting Gallstones Abnormal nuclear stress test HLD (hyperlipidemia) HTN (hypertension) CVA, old, disturbances of vision (~09/2019) NSTEMI (non-ST elevated myocardial infarction) Dementia Coronary artery disease Family History Family History Father No problems noted. Mother No problems noted. 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 Meds Allergies Allergy/AdvReac Type Severity Reaction Status Date / Time No Known Allergies Allergy Unknown UNKNOWN Verified 12/21/24 09:40 [NO KNOWN ALLERGIES] Active Medications: Current Medications Acetaminophen (Acetaminophen 325 Mg Tablet) 650 mg PO Q6H PRN PRN Reason: Pain, Mild 1-3,fever,headache Albuterol Sulfate (Albuterol Sulfate 90 Mcg 8 Gm Inhaler) 2 puff INHALE Q4H PRN PRN Reason: Wheezing Amitriptyline HCl (Amitriptyline Hcl 10 Mg Tablet) 10 mg PO BEDTIME [facility] Last Admin: 12/21/24 23:09 Dose: 10 mg Atorvastatin Calcium (Atorvastatin Calcium 40 Mg Tablet) 40 mg PO DAILY [facility] Calcium Carbonate (Calcium Carbonate 750 Mg Tab.Chew) 750 mg PO Q4H PRN PRN Reason: Heartburn Calcium Carbonate/Cholecalciferol (Calcium + Vitamin D 250 Mg Tablet) 500 mg PO BID [facility] Clopidogrel Bisulfate (Clopidogrel Bisulfate 75 Mg Tablet) 75 mg PO DAILY [facility] Enoxaparin Sodium (Enoxaparin Sodium 40 Mg/0.4 Ml Syringe) 40 mg SUBCUT Q24H [facility] Last Admin: 12/21/24 18:24 Dose: 40 mg Caspofungin 50 mg/ Sodium (Chloride) 250 mls @ 250 mls/hr IV Q24H [facility] Magnesium Hydroxide (Milk Of Magnesia 30 Ml Oral.Susp) 30 ml PO DAILY PRN PRN Reason: Constipation Melatonin (Melatonin 3 Mg Tablet) 6 mg PO BEDTIME PRN PRN Reason: Insomnia Metoprolol Succinate (Metoprolol Succinate Er 12.5 Mg Halftab.Er.24h) 12.5 mg PO DAILY [facility]; Protocol Mirtazapine (Mirtazapine 30 Mg Tablet) 30 mg PO BEDTIME [facility] Last Admin: 12/21/24 23:09 Dose: 30 mg Multivitamins/Vitamin C (Multivitamin Tablet) 1 tab PO DAILY [facility] Ondansetron HCl (Ondansetron Hcl 4 Mg/2 Ml Vial) 4 mg IVPUSH Q8H PRN PRN Reason: Nausea and Vomiting Pantoprazole Sodium (Pantoprazole Sodium 20 Mg Tablet.Dr) 40 mg PO BID@0630,1630 [facility] Last Admin: 12/22/24 06:28 Dose: 40 mg Sertraline HCl (Sertraline Hcl 25 Mg Tablet) 25 mg PO DAILY [facility] Sodium Chloride (0.9 % Sodium Chloride Flush 3 Ml Syringe) 3 ml IVFLUSH QSHIFT [facility] Last Admin: 12/22/24 05:52 Dose: 3 ml Sucralfate (Sucralfate 1 Gm Tablet) 1 gm PO TID [facility] Last Admin: 12/21/24 23:11 Dose: Not Given Home Medications ?Medication ?Instructions ?Recorded ?Confirmed ?Last Taken ?Type amitriptyline 10 mg tablet 10 mg PO BEDTIME 08/02/20 12/21/24 Unknown History albuterol sulfate 90 mcg/actuation 2 puff PO Q4H PRN Wheezing 06/27/21 12/21/24 Unknown History aerosol inhaler mirtazapine 30 mg tablet 30 mg PO BEDTIME 06/27/21 12/21/24 Unknown History sertraline 25 mg tablet 1 tab PO DAILY 06/27/21 12/21/24 Unknown History clopidogrel 75 mg tablet 1 tab PO DAILY 09/02/22 12/21/24 Unknown History calcium 500 mg (as 1 tab PO BID 07/23/24 12/21/24 Unknown History carbonate)-vitamin D3 10 mcg (400 unit) tablet (Oyster Shell Calcium-Vitamin D3) melatonin 5 mg tablet 5 mg PO BEDTIME PRN insomnia 07/23/24 12/21/24 Unknown History multivitamin 1 tab PO QAM 12/21/24 12/21/24 Unknown History Physical Exam Vital Signs: Vital Signs: Last Vital Signs Temp 97.6 F 12/22/24 06:23 Pulse 65 12/22/24 06:23 Resp 15 12/22/24 06:23 BP 113/48 L 12/22/24 06:23 Pulse Ox 100 12/22/24 06:23 O2 Del Method Room Air 12/22/24 06:23 BMI result Body Mass Index 18.0 Const: General: no acute distress and confusion Nutritional Appearance: underweight Orientation/consciousness: confusion Limitations: language barrier and physical limitations HEENT: Head: Yes normal to inspection Ears: hearing grossly normal bilaterally Eyes: Sclerae: sclerae normal Pupils: Equal, round and reactive pupils present Neck: Neck: Yes normal visual inspection Chest: Chest palpation & inspection: normal inspection of the chest Resp: Effort & Inspection: normal respiratory effort Auscultation: clear to auscultation bilaterally Cardio: Palpation: normal PMI Rate: regular rate Rhythm: regular rhythm Heart sounds: S1 normal heart sound present, S2 normal heart sound present and no murmurs GI: Palpation (GI): Soft to palpation, nontender and No hepatosplenomegaly present Auscultation: normal bowel sounds Rectal Exam - Female: deferred Skin: General skin exam: no rashes or lesions noted Neuro: General: gait normal, moves all extremities and confusion Cranial nerves: Yes Equal, round and reactive pupils present Psych: Appearance: grossly normal Mental Status: other (dementia) Results Labs 12/22/24 05:08 12/22/24 05:08 Labs: Short CBC 12/21/24 12/22/24 Range/Units 14:23 05:08 WBC 7.7 6.7 (4.8-10.8) X10*3/uL Hgb 13.1 D 12.4 (12.0-16.0) g/dl Hct 38.2 D 36.8 L (37.0-47.0) % Plt Count 392 D 398 (160-400) X10*3/uL BMP 12/21/24 12/22/24 14:23 05:08 Sodium 137 140 Potassium 4.7 D 3.6 D Chloride 102 107 Carbon Dioxide 28 26 BUN 12 9 Creatinine 0.62 0.58 Calcium 9.7 9.4 Liver Function 12/21/24 12/22/24 Range/Units 14:23 05:08 Total Bilirubin 0.2 0.2 (0.0-1.0) mg/dL Direct Bilirubin < 0.2 (0.0-0.5) mg/dL AST 34 H 20 (5-31) U/L ALT 12 7 (0-31) U/L Alkaline Phosphatase 66 73 (39-117) U/L Albumin 3.2 L 3.1 L (3.5-5.0) g/dL Assessment and Plan (1) Ellie glabrata infection: Status: Acute (2) Weight loss: Status: Acute (3) Epigastric pain: Status: Acute Plan 84 year old [place]i-speaking female with HLD, HTN, CVA, CAD on Plavix and statin, and dementia seen at [facility] on 12/21/24 with dysphagia, poor appetite, decreased PO intake associated with wt loss. Pt is known to me from her previous hospitalization in August,. 08/05/24 EGD showed ellie esophagitis with cultures growing Ellie glabrata. She was treated with a 2-week course of fluconazole and discharged on PO Omeprazole. On GI FU, family reported pt states her esophagus hurts when she eats and is not eating well and has lost wt loss from 106 to 87 lbs over the past 8 months Pt's family requested PEG tube placement for nutritional support. Due to concern for persistent infection with Ellie glabrata (which can be resistant to Fluconazole) Pt was discussed with Dr Vogel (ID) and advised hospitalization for treatment of Ellie Glabrata with IV Caspofungin IV,. RECOMMENDATIONS: 1. Agree with IV PPI and antiemetics 2. IV Caspofungin as per ID 3. If PO intake does not improve with treatment of Esophageal candidiasis, PEG tube placement can be considered as per family's wishes Pt is scheduled for a FU appt in GI on 01/12/25 Procedures Date of Service Date of Service: 12/22/24
[2024-12-22 08:01] LABS: HIV AB/AG Nonreactive (Nonreactive); HIV Num 1 0.05 S/CO (0.00-0.99)
[2024-12-22] MEDS: Sertraline HCL 25 MG TABLET PO (08:42)
[2024-12-22] MEDS: Clopidogrel Bisulfate 75 MG TABLET PO (08:42)
[2024-12-22] MEDS: Sucralfate 1 GM TABLET PO ×2 (08:42→21:22)
[2024-12-22] MEDS: Atorvastatin Calcium 40 MG TABLET PO (08:42)
[2024-12-22] MEDS: Multivitamin TABLET 1 TAB PO (08:42)
--- NOTE | 2024-12-22 09:29 | HO.PM.IMPN ---
Subjective Subjective Date of Service: 12/22/24 Interval History: confused, disoriented c/o epigastric pain Review of Systems Review of Systems: Yes Unobtainable due to mental status Physical Exam Vital Signs: Vital Signs: Last Vital Signs Temp 97.9 F 12/22/24 09:26 Pulse 63 12/22/24 09:26 Resp 12 12/22/24 09:26 BP 116/56 L 12/22/24 09:26 Pulse Ox 98 12/22/24 09:26 O2 Del Method Room Air 12/22/24 09:26 BMI result Body Mass Index 18.0 Gen: in no acute distress, significant muscle wasting HEENT: sclera anicteric, moist mucus membranes, no thrush Neck: supple Lungs: clear to auscultation bilaterally Heart: regular rate and rhythm, no murmurs Abd: soft, epigastric tenderness, non-distended Ext: no edema Skin: warm/well-perfused Neuro: alert and oriented to self only, moving all extremities Psych: appropriate affect Objective Data Active Medications Acetaminophen (Acetaminophen 325 Mg Tablet) 650 mg PO Q6H PRN PRN Reason: Pain, Mild 1-3,fever,headache Albuterol Sulfate (Albuterol Sulfate 90 Mcg 8 Gm Inhaler) 2 puff INHALE Q4H PRN PRN Reason: Wheezing Amitriptyline HCl (Amitriptyline Hcl 10 Mg Tablet) 10 mg PO BEDTIME [facility] Last Admin: 12/21/24 23:09 Dose: 10 mg Documented By: ALESIA Atorvastatin Calcium (Atorvastatin Calcium 40 Mg Tablet) 40 mg PO DAILY [facility] Last Admin: 12/22/24 08:42 Dose: 40 mg Documented By: JETT Calcium Carbonate (Calcium Carbonate 750 Mg Tab.Chew) 750 mg PO Q4H PRN PRN Reason: Heartburn Calcium Carbonate/Cholecalciferol (Calcium + Vitamin D 250 Mg Tablet) 500 mg PO BID [facility] Clopidogrel Bisulfate (Clopidogrel Bisulfate 75 Mg Tablet) 75 mg PO DAILY [facility] Last Admin: 12/22/24 08:42 Dose: 75 mg Documented By: JETT Enoxaparin Sodium (Enoxaparin Sodium 40 Mg/0.4 Ml Syringe) 40 mg SUBCUT Q24H [facility] Last Admin: 12/21/24 18:24 Dose: 40 mg Documented By: MIKE Caspofungin 50 mg/ Sodium (Chloride) 250 mls @ 250 mls/hr IV Q24H [facility] Magnesium Hydroxide (Milk Of Magnesia 30 Ml Oral.Susp) 30 ml PO DAILY PRN PRN Reason: Constipation Melatonin (Melatonin 3 Mg Tablet) 6 mg PO BEDTIME PRN PRN Reason: Insomnia Metoprolol Succinate (Metoprolol Succinate Er 12.5 Mg Halftab.Er.24h) 12.5 mg PO DAILY [facility]; Protocol Mirtazapine (Mirtazapine 30 Mg Tablet) 30 mg PO BEDTIME [facility] Last Admin: 12/21/24 23:09 Dose: 30 mg Documented By: ALESIA Multivitamins/Vitamin C (Multivitamin Tablet) 1 tab PO DAILY [facility] Last Admin: 12/22/24 08:42 Dose: 1 tab Documented By: JETT Ondansetron HCl (Ondansetron Hcl 4 Mg/2 Ml Vial) 4 mg IVPUSH Q8H PRN PRN Reason: Nausea and Vomiting Pantoprazole Sodium (Pantoprazole Sodium 20 Mg Tablet.) 40 mg PO BID@0630,1630 [facility] Last Admin: 12/22/24 06:28 Dose: 40 mg Documented By: ALESIA Sertraline HCl (Sertraline Hcl 25 Mg Tablet) 25 mg PO DAILY [facility] Last Admin: 12/22/24 08:42 Dose: 25 mg Documented By: JETT Sodium Chloride (0.9 % Sodium Chloride Flush 3 Ml Syringe) 3 ml IVFLUSH QSHIFT [facility] Last Admin: 12/22/24 08:43 Dose: 3 ml Documented By: JETT Sucralfate (Sucralfate 1 Gm Tablet) 1 gm PO TID [facility] Last Admin: 12/22/24 08:42 Dose: 1 gm Documented By: JETT Labs 12/22/24 05:08 12/22/24 05:08 Labs: Laboratory Results - last 24 hr 12/21/24 12/22/24 14:23 05:08 MCV 95.0 97.9 MCH 32.6 33.0 MCHC 34.3 33.7 RDW 14.1 14.2 Plt Count 392 D 398 MPV 10.7 10.6 Immature Gran % (Auto) 0.4 Neut % (Auto) 48.8 Lymph % (Auto) 36.9 [place] % (Auto) 12.4 H Eos % (Auto) 0.9 Baso % (Auto) 0.6 Lymph # (Auto) 2.9 [place] # (Auto) 1.0 Eos # (Auto) 0.1 Baso # (Auto) 0.1 Abs Immat Gran (auto) 0.03 Absolute Neuts (auto) 3.8 Absolute Nucleated RBC 0.000 0.000 Nucleated RBC % (auto) 0.0 0.0 Anion Gap 12 11 L Estim Creat Clear Calc 43.0 46.0 Estimated GFR > 60 > 60 Random Glucose 113 105 Calcium 9.7 9.4 Total Bilirubin 0.2 0.2 Direct Bilirubin < 0.2 AST 34 H 20 ALT 12 7 Alkaline Phosphatase 66 73 Total Protein 7.9 7.0 Albumin 3.2 L 3.1 L Lipase 32 Vitamin B12 433 Folate 9.6 HIV 1&2 Ab/P24 Ag 4thGn Nonreactive Assessment and Plan (1) Esophagitis: Status: Acute Plan d2 for 84yo F with HLD, HTN, CVA, CAD on Plavix and statin, and dementia with documented Ellie glabrata esophagitis on EGD in August 2024 treated with fluconazole presenting with ongoing weight loss and swallowing discomfort. Likely due to Ellie glabrata esophagitis with some degree of azole resistance. C. glabrata esophagitis - 12/21-01/04 caspofungin IV, consult GI + Infectious Disease, place midline for anticipated home infusion moderate protein-calorie malnutrition - Nutrition consult, supplements CAD hx CVA - ASA + clopidogrel + metoprolol succinate + atorvastatin gastritis - PPI + sucralfate HTN - metoprolol succinate dementia - sertraline + mirtazapine VTE prophylaxis - enoxaparin dispo - plan home with VNA In my clinical judgment, the patient requires continued inpatient hospitalization for the following reasons: IV antifungal, specialist consultation Total time managing care of this patient today: 35 minutes. Quality Stroke Does the patient have a stroke diagnosis?: No VTE Prior VTE?: No VTE Risk Level:: Medical - moderate - high VTE Device Contraindication: N/A - Device Ordered VTE Drug Contraindication: N/A - Med Ordered
--- NOTE | 2024-12-22 12:24 | HO.MIDLINE ---
Midline Insertion MIDLINE INSERTION Diagnosis: esophagitis Indication: fpc antibiotics Pertinent Labs: reviewed Technique: Using sterile technique including cap and mask, glove and drape, the left arm was prepped and draped in the usual sterile fashion of full barrier technique with CHG. Using ultrasound guidance, left brachial vein access was obtained on first attempt. 20G X 8 CM non-PASV ST Midline was positioned. The procedure was performed in S272. Ultrasound was used to document vein patency and for needle entry. A formal ultrasound picture was recorded. [employer] has released the line for use and it is currently dressed with a StatLock, Tegaderm, and CHG disc. Verification has been performed for blood return and line patency. Arm Circumference: 22CM Equipment: BARD PowerGlide ST Midline Catheter Type: 20G X 8CM non-PASV ST Midline Lot #: [id number]
[2024-12-22] MEDS: Acetaminophen 325 MG TABLET 650 MG PO (12:51)
--- NOTE | 2024-12-22 13:31 | MHC.CLN ---
PT IS MODERATELY MALNOURISHED PT WITH MILDLY DEPLETED SUBCUTANEOUS FAT AND MUSCLE MASS WITH BMI 18 AND 16% SIGNIFICANT WT LOSS X 8 MONTHS R/T POOR PO INTAKE SECONDARY TO CANDIDAL ESOPHAGITIS DIET RX: REG GRD M/S-APPROPRIATE PT WITH ENSURE TID TO PROMOTE WT GAIN HOWEVER SUPPLEMENT EXCEEDS KCAL NEEDS RECOMMEND DECREASE ENSURE BID TO PROVIDE 700KCALS, 40G PROTEIN MONITOR PO INTAKE AND ENCOURAGE SUPPLEMENTS SEE FULL CLINICAL NUTRITION ASSESSMENT
--- NOTE | 2024-12-22 15:29 | P.CDIM_ITS ---
PROVIDER RESPONSE TEXT: To clarify, the appropriate diagnosis supported by the clinical indicators: Chronic gastritis QUERY TEXT: PHYSICIAN'S DOCUMENTATION REQUEST Date of Query: 12/22/2024 11:26 AM EDT Patient Name: Elisa Weaver Admit Date: 12/21/2024 Dear Serene Hoyt MD, A review of the medical record indicates additional documentation may be needed. Please review below and update the documentation accordingly. Clinical Indicators: Progress notes 12/21 - Patient complains of pain when eating and swallowing, worsening epigastric pain . Diagnosed with Esophagitis syndrome. Gastritis: PPI + sucralfate Clarify which of the following accurately represents the acuity of the Gastritis: Possible options might include: Acute gastritis Chronic gastritis Other specified Other (explain) Clinically unable to determine (explain) Thank you, Fernanda Sauceda, CCS, CDIS Use of terms such as suspected, likely, concern for, or probable (associated with a specific diagnosi s that is being evaluated, monitored, or treated as if it exists) are acceptable and can be coded in the inpatient se tting, when documented at the time of discharge. Please use your independent medical judgment in providing your response. THIS QUERY IS PART OF THE PERMANENT MEDICAL RECORD
[2024-12-22] MEDS: Heparin Sodium,Porcine Flush 50 UNITS, 0.9 % Sodium Chloride Flush 5 ML IVFLUSH ×2 (15:46→21:23)
--- NOTE | 2024-12-22 16:13 | MHC.CM.PN ---
Addendum entered by Sindy Francisco 12/23/24 15:40: BLS TRANSPORT BOOKED WITH [facility] FOR 1630 HOURS CM ATTEMPTED TO CONTACT PTS SON, DANIELLE, HOWEVER HIS DAUGHTER ANSWERED SHE SAYS HER FATHER IS AT THE PTS HOME WAITING FOR HER ARRIVAL CM CONFIRMED THE PLANS FOR [facility] TO DELIVER MEDS AND [facility] TO PROVIDE TEACHING REINFORCEMENT AND DRESSING CHANGES/LABS. SHE REPORTS UNDERSTANDING AND WILL RELAY THE INFORMATION TO HER FATHER . CM ENCOURAGED HER TO CALL WITH ANY QUESTIONS Addendum entered by Sindy Francisco 12/23/24 11:00: BEDSIDE TEACH COMPLETED BY [facility] RN WITH SON AND OTHER FAMILY MEMBERS SON FEELS ABLE TO MANAGE MEDS AT HOME PT WILL DC HOME WITH [facility] HI AND [facility] ONCE MEDICALLY CLEARED Original Note: CM SPOKE TO PTS SON/PRIMARY CONTACT, DANIELLE [phone] WITH A FINANCIAL REPORTING SPECIALIST HE REPORTS THE PT LIVES WITH HER OTHER SON, BUT HE IS ALSO THERE DAILY HE SAYS THE PT ALSO HAS DAILY [employer]I DEVELOPER SERVICES SHE USES A CANE AND WALKER, BUT HE SAYS SHE STAYS IN BED MOST OF THE TIME PT HAS A HCP ON FILE, HOWEVER THERE ARE NO PHONE NUMBERS LISTED FOR THEM, DANIELLE STATES THE HCP HAS NOT BEEN INVOLVED IN SOME TIME CM WILL ATTEMPT TO COMPLETE A NEW HCP IF PT IS CAPABLE PCP: JACKIE NAME [facility] DELIVERED DCP: PT WILL NEED 14 DAYS OF CASPOFUNGIN VIA [facility] PTS SON STATES HE CAN MANAGE THIS AT HOME ONCE TEACH IS COMPLETED HE IS AWARE [facility] RN WILL CONTACT HIM TOMORROW TO ARRANGE TEACH AND A VNA WILL BE IN PLACE TO REINFORCE TEACHING WELL FOR DRESSING CHANGES AND LABS REFERRALS PLACED TO [facility] AND [facility] SON MAY BE ABLE TO TRANSPORT, HOWEVER STATES BLS MAY BE NEEDED IF PT IS DECONDITIONED
[2024-12-22] MEDS: Enoxaparin Sodium 40 MG/0.4 ML SYRINGE SUBCUT (18:02)
[2024-12-22] MEDS: Caspofungin Acetate 50 MG in 0.9 % Sodium Chloride 250 ML 250 MG IV (20:21)
[2024-12-22] MEDS: Mirtazapine 30 MG TABLET PO (21:22)
[2024-12-22] MEDS: Calcium + Vitamin D 250 MG TABLET 500 MG PO (21:22)
[2024-12-22] MEDS: Amitriptyline HCl 10 MG TABLET PO (21:22)
[2024-12-23 04:00] VITALS: BP 111/53; PULSE 95; RESP 18; TEMP 37.2; O2SAT 95
[2024-12-23] MEDS: Pantoprazole Sodium 20 MG TABLET.DR 40 MG PO ×2 (05:42→15:22)
[2024-12-23 07:47] VITALS: BP 119/54; PULSE 76; RESP 17; TEMP 36.4; O2SAT 97
[2024-12-23] MEDS: Sertraline HCL 25 MG TABLET PO (08:20)
[2024-12-23] MEDS: Calcium + Vitamin D 250 MG TABLET 500 MG PO (08:20)
[2024-12-23] MEDS: Metoprolol Succinate ER 12.5 MG HALFTAB.ER.24H PO (08:20)
[2024-12-23] MEDS: Clopidogrel Bisulfate 75 MG TABLET PO (08:21)
[2024-12-23] MEDS: Multivitamin TABLET 1 TAB PO (08:21)
[2024-12-23] MEDS: Heparin Sodium,Porcine Flush 50 UNITS, 0.9 % Sodium Chloride Flush 5 ML IVFLUSH ×2 (08:21→15:19)
[2024-12-23] MEDS: Sucralfate 1 GM TABLET PO ×2 (08:21→15:22)
[2024-12-23] MEDS: Atorvastatin Calcium 40 MG TABLET PO (08:21)
[2024-12-23] MEDS: 0.9 % Sodium Chloride Flush 3 ML SYRINGE IVFLUSH (08:22)
--- NOTE | 2024-12-23 09:56 | MHC.CLN ---
F/U DIET RX: REG GRD M/S-APPROPRIATE. PT WITH ENSURE BID TO PROMOTE NUTRITIONAL STATUS. PROVIDES 700 KCALS, 40 G PROTEIN. PO INTAKE APPEARS TO BE POOR, 25%. MONITOR PO INTAKE AND ENCOURAGE SUPPLEMENTS.
--- NOTE | 2024-12-23 11:14 | MHC.SL.SWA ---
Speech Pathologist Impression: Risk of Aspiration in Setting of Dementia, Oral Phase Dysphagia Risk of Aspiration Due to: Poor PO Intake Reduced Cognition Dysphasia Diet Status: No Change to Diet Order Liquid Consistency and Strategies for Safe Swallow: Liquid Intake Recommendation: Thin Liquid Intake Strategies: Small Sips Solid Food Consistency: Dietary Recommendations: Grnd/Mech Altered (NDD2) Additional Modifications to Solid Foods: Patient with mild oral phase dysphagia d/t edentulous status. Patient with slow chewing and mashing, but ultimately able to clear solids with multiple swallows. She is recommended to continue on GROUND/MECH ALTERED (NDD2) solids as ordered per MD, and THIN liquids, pills to be CRUSHED in PUREE. Patient is able to feed herself, but is highly confused and seen attempting to drink in supine position. Patient will need direct supervision with redirection/orienting to meal and feeding. Oral Medication Intake: Crushed with Puree Please contact the pharmacy regarding appropriate crushable or liquid drug formulations that are available whenever modified delivery is recommended. Compensatory Strategies and Precautions to be Taken for Safe Swallow: Sitting Upright (90 deg) Small Bites and Sips Alternate Liquids/Solids Rate of Ingestion Change Supervision While Eating and Drinking for Safe Swallow: Total Supervision (1:1) Swallowing Recommended Treatments: Compens. Strategy Educat. Recommendation for Speech: Inpatient Speech Therapy Comment: 1-2 f/u Frequency/Duration: M-F Date Range for Service Req: Timeline to reassess: Joint Cutter Clinican/Clinical Fellow: No Supervisory Statement: I have reviewed and agree with the student/clinical fellow's documentation: N/A Speech Language Pathologist: Nieves Coronado M.A., CCC-SILK PRESSER
--- NOTE | 2024-12-23 14:24 | P.DS_ITS ---
DS: Providers Provider Date of Service: 12/23/24 Date of admission: 12/21/24 16:40 Date of discharge: 12/23/24 Primary care physician: Stef Greer MD Consults: 12/21/24 16:20 Consult to Infectious Diseases Routine Consulting Provider: [facility] Reason for consultation: esophagitis 12/21/24 16:23 Consult to Gastroenterology Routine Consulting Provider: [facility] Reason for consultation: Ellie glabrata esophagitis DS: Diagnosis Discharge Diagnosis (1) Ellie glabrata infection: Status: Acute (2) Weight loss: Status: Acute (3) Epigastric pain: Status: Acute DS: Summary Hospital Course Hospital Course: 84yo F with HLD, HTN, CVA, CAD on Plavix and statin, and dementia who has been losing weight due to poor appetite and swallowing discomfort. She was admitted here in August and an EGD on 08/05/24 showed candidal esophagitis with cultures growing Ellie glabrata. She was treated with a 2-week course of fluconazole. She was sent in on the advice of her photo lab manager for worsening epigastric pain when swallowing food or pills. No fever or chills. No shortness of breath. No nausea or vomiting. Hospital course Admitted to general medical floor and started on caspofungin. Slowly responded to therapy; received midline and will need a complete a 14 day course of therapy. Family active in care and infusion company that with son and taught infusion therapy. At this point in time patient is medically acceptable to ret urn to home and complete course of caspofungin as ordered. She will follow up with the PCP next available Time Attestation Discharge Coordination Time (in mins): 35 Quality: Safe Use of Opioids Does Pt have an Active Cancer Diagnosis on the Problem List?: No Quality: Stroke Does the patient have a stroke diagnosis?: No Physical Exam Vital Signs: Vital Signs: Last Vital Signs Temp 97.6 F 12/23/24 07:47 Pulse 76 12/23/24 07:47 Resp 17 12/23/24 07:47 BP 119/54 L 12/23/24 07:47 Pulse Ox 97 12/23/24 07:47 O2 Del Method Room Air 12/23/24 07:47 BMI result Body Mass Index 18.0 Const: Other: Awake confused Resp: Other: Clear to auscultation bilaterally no rales rhonchi or wheezes Cardio: Other: No S4; positive S1-S2; no S3 murmurs rubs or gallops GI: Other: Soft nontender nondistended normoactive bowel sounds Extrem: Other: No edema bilaterally DS: Data Data Completed and Pending Completed studies during hospitalization [Text1]: Procedures Excision of Esophagus, Via Natural or Artificial Opening Endoscopic, Diagnostic (08/04/24) Excision of Stomach, Pylorus, Via Natural or Artificial Opening Endoscopic, Diagnostic (08/04/24) Extraction of Esophagus, Via Natural or Artificial Opening Endoscopic, Diag nostic (08/04/24) Discharge Plan Discharge Anticipated Discharge Date/Time: 12/23/24 14:19 Patient Disposition: Home Health Service Discharge Diagnosis: C.Glabrata esophagitis Referrals: Name,MD Stef [Primary Care Provider] - 1 Week Discharge Medications: New caspofungin [Cancidas] 50 mg Recon Soln 50 mg IV Q24H Qty: 12 0RF Continued atorvastatin 40 mg tablet 40 mg PO DAILY Qty: 90 3RF mirtazapine 30 mg tablet 30 mg PO BEDTIME sertraline 25 mg tablet 1 tab PO DAILY albuterol sulfate 90 mcg/actuation HFA aerosol inhaler 2 puff PO Q4H PRN (Reason: Wheezing) clopidogrel 75 mg tablet 1 tab PO DAILY calcium carbonate-vitamin D3 [Oyster Shell Calcium-Vit D3] 500 mg-10 mcg (400 unit) tablet 1 tab PO BID melatonin 5 mg tablet 5 mg PO BEDTIME PRN (Reason: insomnia) pantoprazole 40 mg tablet,delayed release (DR/EC) 1 tab PO BID@0630,1630 Qty: 180 0RF sucralfate 1 gram tablet 1 g PO TID Qty: 90 0RF ondansetron 4 mg tablet,disintegrating 4 mg PO Q6-8H PRN (Reason: nausea and vomiting) Qty: 7 0RF metoprolol succinate 25 mg tablet extended release 24 hr 12.5 mg PO DAILY Qty: 90 1RF multivitamin Tablet 1 tab PO QAM amitriptyline 10 mg tablet 10 mg PO BEDTIME Discharge Orders: Discharge Order (Routine); Ordered 12/23/24 Ordered By: Clayton Mcelroy Diet: Advance to usual diet Activity on Discharge: As tolerated Stand Alone Forms: Patient Portal Discharge page Print Language: Tajik Care Plan Goals: Caspofungin 50 mg IV daily last dose 01/04. VNA to assist Health Concerns: Continue all pre-hospital medications Plan of Treatment: Follow up with PCP in next available Assessment: See discharge summary
--- NOTE | 2024-12-23 14:26 | P.CNID_ITS ---
History of Present Illness Data of Consult Service Date: 12/23/24 Requesting physician: Clayton Mcelroy Primary Care Provider: Stef Greer MD HPI Reason for consult: aaron glabrata esophagitis She presents with worsening trouble swallowing according to family. She had biopsy esophagitis although unremarkable visually aaron glabrata seen on pathology only. She has no fever or chills but felt she has dysphagia. She has dementia so doesnt describe symptoms and weight hasnt changed that much. Review of Systems 2 Review of Systems: Yes Unobtainable due to mental status PMFSH Past Medical History Medical History Nausea & vomiting Gallstones Abnormal nuclear stress test HLD (hyperlipidemia) HTN (hypertension) CVA, old, disturbances of vision (~09/2019) NSTEMI (non-ST elevated myocardial infarction) Dementia Coronary artery disease Family History Family History Father No problems noted. Mother No problems noted. 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 Meds Allergies Allergy/AdvReac Type Severity Reaction Status Date / Time No Known Allergies Allergy Unknown UNKNOWN Verified 12/21/24 09:40 [NO KNOWN ALLERGIES] Active Medications: Current Medications Acetaminophen (Acetaminophen 325 Mg Tablet) 650 mg PO Q6H PRN PRN Reason: Pain, Mild 1-3,fever,headache Last Admin: 12/22/24 12:51 Dose: 650 mg Albuterol Sulfate (Albuterol Sulfate 90 Mcg 8 Gm Inhaler) 2 puff INHALE Q4H PRN PRN Reason: Wheezing Amitriptyline HCl (Amitriptyline Hcl 10 Mg Tablet) 10 mg PO BEDTIME [facility] Last Admin: 12/22/24 21:22 Dose: 10 mg Atorvastatin Calcium (Atorvastatin Calcium 40 Mg Tablet) 40 mg PO DAILY [facility] Last Admin: 12/23/24 08:21 Dose: 40 mg Calcium Carbonate (Calcium Carbonate 750 Mg Tab.Chew) 750 mg PO Q4H PRN PRN Reason: Heartburn Calcium Carbonate/Cholecalciferol (Calcium + Vitamin D 250 Mg Tablet) 500 mg PO BID [facility] Last Admin: 12/23/24 08:20 Dose: 500 mg Clopidogrel Bisulfate (Clopidogrel Bisulfate 75 Mg Tablet) 75 mg PO DAILY [facility] Last Admin: 12/23/24 08:21 Dose: 75 mg Heparin Sodium (Porcine) 50 (units/ Sodium Chloride 5 ml) 0 units IVFLUSH TID [facility] Last Admin: 12/23/24 08:21 Dose: 50 unit Enoxaparin Sodium (Enoxaparin Sodium 40 Mg/0.4 Ml Syringe) 40 mg SUBCUT Q24H [facility] Last Admin: 12/22/24 18:02 Dose: 40 mg Caspofungin 50 mg/ Sodium (Chloride) 250 mls @ 250 mls/hr IV Q24H [facility] Last Infusion: 12/22/24 21:31 Dose: Infused Magnesium Hydroxide (Milk Of Magnesia 30 Ml Oral.Susp) 30 ml PO DAILY PRN PRN Reason: Constipation Melatonin (Melatonin 3 Mg Tablet) 6 mg PO BEDTIME PRN PRN Reason: Insomnia Metoprolol Succinate (Metoprolol Succinate Er 12.5 Mg Halftab.Er.24h) 12.5 mg PO DAILY [facility]; Protocol Last Admin: 12/23/24 08:20 Dose: 12.5 mg Mirtazapine (Mirtazapine 30 Mg Tablet) 30 mg PO BEDTIME [facility] Last Admin: 12/22/24 21:22 Dose: 30 mg Multivitamins/Vitamin C (Multivitamin Tablet) 1 tab PO DAILY [facility] Last Admin: 12/23/24 08:21 Dose: 1 tab Ondansetron HCl (Ondansetron Hcl 4 Mg/2 Ml Vial) 4 mg IVPUSH Q8H PRN PRN Reason: Nausea and Vomiting Pantoprazole Sodium (Pantoprazole Sodium 20 Mg Tablet.Dr) 40 mg PO BID@0630,1630 [facility] Last Admin: 12/23/24 05:42 Dose: 40 mg Sertraline HCl (Sertraline Hcl 25 Mg Tablet) 25 mg PO DAILY [facility] Last Admin: 12/23/24 08:20 Dose: 25 mg Sodium Chloride (0.9 % Sodium Chloride Flush 3 Ml Syringe) 3 ml IVFLUSH QSHIFT [facility] Last Admin: 12/23/24 08:22 Dose: 3 ml Sucralfate (Sucralfate 1 Gm Tablet) 1 gm PO TID [facility] Last Admin: 12/23/24 08:21 Dose: 1 gm Home Medications ?Medication ?Instructions ?Recorded ?Confirmed ?Last Taken ?Type amitriptyline 10 mg tablet 10 mg PO BEDTIME 08/02/20 12/21/24 Unknown History albuterol sulfate 90 mcg/actuation 2 puff PO Q4H PRN Wheezing 06/27/21 12/21/24 Unknown History aerosol inhaler mirtazapine 30 mg tablet 30 mg PO BEDTIME 06/27/21 12/21/24 Unknown History sertraline 25 mg tablet 1 tab PO DAILY 06/27/21 12/21/24 Unknown History clopidogrel 75 mg tablet 1 tab PO DAILY 09/02/22 12/21/24 Unknown History calcium 500 mg (as 1 tab PO BID 07/23/24 12/21/24 Unknown History carbonate)-vitamin D3 10 mcg (400 unit) tablet (Oyster Shell Calcium-Vitamin D3) melatonin 5 mg tablet 5 mg PO BEDTIME PRN insomnia 07/23/24 12/21/24 Unknown History multivitamin 1 tab PO QAM 12/21/24 12/21/24 Unknown History Physical Exam 2 Vital Signs: Vital Signs: Last Vital Signs Temp 97.6 F 12/23/24 07:47 Pulse 76 12/23/24 07:47 Resp 17 12/23/24 07:47 BP 119/54 L 12/23/24 07:47 Pulse Ox 97 12/23/24 07:47 O2 Del Method Room Air 12/23/24 07:47 BMI result Body Mass Index 18.0 Psych: Other: confused Results Labs 12/22/24 05:08 12/22/24 05:08 Assessment and Plan (1) Aaron glabrata infection: Status: Acute (2) Esophagitis: Status: Acute Plan She has ongoing issues with anorexia and may be due to dementia especially since endoscopy itself didint show physical signs of aaron Can treat for 14 days total Capofungin per weight based nomogram Not sure if this would work
--- NOTE | 2024-12-23 14:27 | W.MHC.F2F ---
Service Date Service Date: 12/23/24 Encounter Date of encounter: 12/23/24 Encounter: Acute hospitalization Reasons for Services Signs and symptoms assessed: Follow-up response to IV caspofungin Reason for jail: administration of IV, SQ, or IM injection, medication management and teach disease management Homebound: Leaving the home is medically contraindicated at this time without the asist of a device and/or another person due th the listed conditions above and below. Reason homebound: unsteady gait / fall risk and unable to drive Certification: Based on the above findings, I certify that this patient is confined to the home and needs intermittent jail care, physical therapy and/or speech therapy, or continues to need occupational therapy. The patient is under my care, and I have initiated the establishment of the plan of care. The patient will be followed by a physician who will periodically review the plan of care. Time Spent With Patient Time: Total time managing care of this patient today ____ minutes.
[2024-12-23 15:22] VITALS: BP 104/61; PULSE 94; RESP 16; TEMP 36.7; O2SAT 97
== END 2024-12-23 16:49 | disposition home health service (06) | DRG 369 ==
LOC: HO.ED 16:22 → HO.EDOVER 16:51 → HO.S3 12-22 07:41
PROVIDERS: Admitting Provider Family Medicine; Emergency Provider Emergency Medicine; PCP Internal Medicine Geriatric Medicine; Visit Provider Hospitalist
DX: B37.81 Candidal esophagitis (principal); E44.0 Moderate protein-calorie malnutrition; Z68.1 Body mass index [BMI] 19.9 or less, adult; I25.10 Atherosclerotic heart disease of native coronary artery without angina pectoris; K29.50 Unspecified chronic gastritis without bleeding; I10 Essential (primary) hypertension; F03.90 Unspecified dementia, unspecified severity, without behavioral disturbance, psychotic disturbance, mood disturbance, and anxiety; Z86.73 Personal history of transient ischemic attack (TIA), and cerebral infarction without residual deficits; Z79.02 Long term (current) use of antithrombotics/antiplatelets; Z79.899 Other long term (current) drug therapy
CPT/HCPCS: 36410; 36415; 80053; 82248; 82607; 82746; 83690; 85025; 85027; 87389; 92610; 93005; 99285; J0637; J1642; J1650; J2470

== ENCOUNTER 2024-12-21 16:40 | Outpatient (BNV) | payer OTHER, SELFPAY | END 2024-12-21 20:13 | PROVIDERS: Admitting Provider Family Medicine; Emergency Provider Emergency Medicine; PCP Internal Medicine Geriatric Medicine; Visit Provider Internal Medicine Cardiovascular Disease | DX: I49.3 Ventricular premature depolarization (principal); R53.1 Weakness | CPT/HCPCS: 93010 ==

== ENCOUNTER → 2024-12-21 16:40 | Outpatient (BNV) | payer OTHER, SELFPAY | PROVIDERS: Admitting Provider Family Medicine; Emergency Provider Emergency Medicine; PCP Internal Medicine Geriatric Medicine; Visit Provider Internal Medicine Gastroenterology | DX: B37.81 Candidal esophagitis (principal); R63.4 Abnormal weight loss; R10.13 Epigastric pain | CPT/HCPCS: 99222 ==

== ENCOUNTER → 2024-12-21 16:40 | Outpatient (BNV) | payer OTHER, SELFPAY | PROVIDERS: Admitting Provider Family Medicine; Emergency Provider Emergency Medicine; PCP Internal Medicine Geriatric Medicine; Visit Provider Internal Medicine | DX: B37.9 Candidiasis, unspecified (principal); K20.90 Esophagitis, unspecified without bleeding | CPT/HCPCS: 99222 ==

== ENCOUNTER → 2024-12-21 16:40 | Outpatient (BNV) | payer OTHER, SELFPAY | PROVIDERS: Admitting Provider Family Medicine; Emergency Provider Emergency Medicine; PCP Internal Medicine Geriatric Medicine; Visit Provider Family Medicine | DX: K20.90 Esophagitis, unspecified without bleeding (principal) | CPT/HCPCS: 99232; 99239; G0180 ==

== ENCOUNTER 2024-12-30 13:28 | Outpatient (REF) | payer OTHER, SELFPAY ==
[2024-12-30 14:22] LABS: Alanine Aminotransferase 10 U/L (0-31); Albumin Level 3.2 g/dL (3.5-5.0); Alkaline Phosphatase 66 U/L (39-117); Anion Gap 10 (12-20); Aspartate Amino Transferase 24 U/L (5-31); Bilirubin Direct 0.1 mg/dL (0.0-0.5); Bilirubin Total 0.3 mg/dL (0.0-1.0); Blood Urea Nitrogen 16 mg/dL (9-16); Calcium 9.3 mg/dL (8.4-10.2); Carbon Dioxide 24 mmol/L (22-29); Chloride 107 mmol/L (96-108); Estimated Glomerular Filt Rate > 60; Glucose Random 110 mg/dL (60-115); Potassium 4.2 mmol/L (3.3-5.1); Sodium 137 mmol/L (135-145); Total Protein 6.8 g/dL (6.5-8.0)
== END 2024-12-30 13:29 | disposition home or self-care (01) ==
LOC: HO.HVNA 13:28
PROVIDERS: Visit Provider Internal Medicine
DX: B37.81 Candidal esophagitis (principal)
CPT/HCPCS: 36415; 80053; 82248; 86140

== ENCOUNTER 2025-01-08 00:04 | Emergency (ER) | payer OTHER, SELFPAY ==
--- NOTE | ~2025-01-08 | CT_ITS ---
CLINICAL HISTORY: pain CT abdomen and pelvis with contrast Comparison: CT of the abdomen and pelvis from 08/04/2024 Findings: Mild bibasilar atelectasis and/or pneumonitis. With trace left pleural effusion. Partially imaged wall thickening of the imaged esophagus. Small hiatal hernia. Mild distention of the stomach is nonspecific. No small bowel obstruction. Severe and dense stool burden present. The appendix is not definitively seen, with mild motion artifacts. Cholelithiasis redemonstrated. 2 mm nephrolithiasis of the left kidney. No hydronephrosis. Adrenal glands are unchanged. Spleen is nonenlarged. Mild volume loss of the pancreas noted. No liver mass by CT with motion artifacts. Additional artifacts related to upper extremity positioning. No free intraperitoneal air. No drainable abscess by CT. New moderate wall thickening of the urinary bladder is nonspecific and may reflect cystitis. Uterus is anteverted. No adnexal soft tissue mass by CT. Mild pelvis deformities appear old/chronic without significant change. Degenerative changes include imaged hips, SI joints, and spine. Mild progression and increased sclerosis of the moderate height loss of the L2 compression fracture. Mild retropulsion and minimal L1-L2 stenosis is not significantly changed. Schmorl's nodes are redemonstrated including thoracic vertebrae. Facet arthropathy is multifocal. IMPRESSION: 1. New wall thickening of the urinary bladder. Differential considerations include cystitis. 2. Severe dense stool burden. No small bowel obstruction. 3. Cholelithiasis. 4. Abnormal wall thickening of the imaged esophagus. 5. Mild bibasilar atelectasis and/or pneumonitis This document has been electronically signed by: Andi Jerry MD on 01/08/2025 02:36:32
[2025-01-08 00:08] VITALS: BP 108/62; PULSE 93; O2SAT 99
[2025-01-08 00:17] VITALS: BP 143/74; PULSE 85; RESP 30; TEMP 36.9; O2SAT 98; BMI 19.5
[2025-01-08] MEDS: ondansetron HCL 4 MG/2 ML VIAL IVPUSH (00:41)
[2025-01-08] MEDS: 0.9 % Sodium Chloride 500 ML IV (00:44)
--- NOTE | 2025-01-08 00:46 | ED_ITS ---
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 Pain over upper abdomen, patient unable to describe the nature of her discomfort. Associated nausea/ vomiting, with poor p.o. intake. Unclear when she last had a bowel movement. Denies abdominal distention or inability to pass flatus. Related Data Home Medications ?Medication ?Instructions ?Recorded ?Confirmed amitriptyline 10 mg tablet 10 mg PO BEDTIME 08/02/20 12/21/24 albuterol sulfate 90 mcg/actuation 2 puff PO Q4H PRN Wheezing 06/27/21 12/21/24 aerosol inhaler mirtazapine 30 mg tablet 30 mg PO BEDTIME 06/27/21 12/21/24 sertraline 25 mg tablet 1 tab PO DAILY 06/27/21 12/21/24 clopidogrel 75 mg tablet 1 tab PO DAILY 09/02/22 12/21/24 calcium 500 mg (as 1 tab PO BID 07/23/24 12/21/24 carbonate)-vitamin D3 10 mcg (400 unit) tablet (Oyster Shell Calcium-Vitamin D3) melatonin 5 mg tablet 5 mg PO BEDTIME PRN insomnia 07/23/24 12/21/24 multivitamin 1 tab PO QAM 12/21/24 12/21/24 Previous Rx's ?Medication ?Instructions ?Recorded atorvastatin 40 mg tablet 40 mg PO DAILY #90 tabs 02/26/21 pantoprazole 40 mg tablet,delayed 1 tab PO BID@0630,1630 #180 tabs 08/09/24 release ondansetron 4 mg disintegrating 4 mg PO Q6-8H PRN nausea and 10/18/24 tablet vomiting #7 tabs sucralfate 1 gram tablet 1 g PO TID #90 tabs 10/18/24 metoprolol succinate 25 mg 12.5 mg (1/2 x 25 mg) PO DAILY #90 10/20/24 tablet,extended release 24 hr tabs caspofungin 50 mg intravenous 50 mg IV Q24H #12 ea 12/23/24 solution (Cancidas) bisacodyl 5 mg tablet,delayed 10 mg (2 x 5 mg) PO BEDTIME 2 days 01/08/25 release (Dulcolax (bisacodyl)) #4 tabs ciprofloxacin HCl 250 mg tablet 250 mg PO Q12H #6 tabs 01/08/25 magnesium hydroxide 400 mg/5 mL 5 ml PO BID #355 mL 01/08/25 oral suspension (Milk of Magnesia) Allergies Allergy/AdvReac Type Severity Reaction Status Date / Time No Known Allergies Allergy Unknown UNKNOWN Verified 01/08/25 00:19 [NO KNOWN ALLERGIES] Review of Systems 2 Review of Systems: Yes all other systems are reviewed and are negative Constitutional: Constitutional: Denies fatigue and Denies fever(s) Cardiovascular: Cardiovascular: Denies chest pain and Denies dyspnea Respiratory: Respiratory: Denies cough and Denies dyspnea Gastrointestinal: Gastrointestinal: Reports abdominal pain, Reports constipation, Reports nausea and Reports vomiting Endocrine: Endocrine: Denies fatigue PMFSH Past Medical History Attestation statement: The following information was validated with the patient. Medical History Nausea & vomiting Gallstones Abnormal nuclear stress test HLD (hyperlipidemia) HTN (hypertension) CVA, old, disturbances of vision (~09/2019) NSTEMI (non-ST elevated myocardial infarction) Dementia Coronary artery disease Surgical History History of esophagogastroduodenoscopy (EGD) Family History Family History Father No problems noted. Mother No problems noted. 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 Physical Exam ED Vital Signs: Vital Signs - 24 hr 01/08/25 00:17 01/08/25 02:59 Temperature 98.5 F 99.1 F Pulse Rate 85 102 H Respiratory Rate 30 H 14 Blood Pressure 143/74 H 143/86 H Pulse Oximetry 98 98 Oxygen Delivery Method Room Air Room Air BMI result Body Mass Index 19.5 Const Other: Alert Orientation/consciousness: oriented to person and oriented to place Resp Effort & Inspection: normal respiratory effort Cardio Other: Normal peripheral perfusion GI Other: Abdomen is soft, nondistended, generalized tenderness to palpation without guarding, no fecal impaction Skin Other: Warm dry no rash Neuro Other: Cranial nerves intact other than visual disturbance which is her baseline General: oriented to person, oriented to place and no focal motor deficits Psych Other: Cooperative Medications Administered Discontinued Medications Generic Name Dose Route Start Last Admin Trade Name Chuyq PRN Reason Stop Dose Admin Sodium Chloride 500 mls @ 500 mls/hr 01/08/25 00:18 01/08/25 00:44 Ns IV 01/08/25 01:17 500 mls/hr .Q1H ONE Administration Iohexol 85 ml 01/08/25 01:25 01/08/25 01:25 Iohexol 350 Mg/Ml 100 Ml Infus..Btl IV 01/08/25 01:26 85 ml ONCE ONE Administration Ondansetron HCl 4 mg 01/08/25 00:18 01/08/25 00:41 Ondansetron Hcl 4 Mg/2 Ml Vial IVPUSH 01/08/25 00:19 4 mg ONCE ONE Administration Medical Decision Making Medical Decision Making MDM Narrative: 84-year-old female with a history of dementia, known gallstones, GERD/gastritis chronic constipation, hypertension, hyperlipidemia, known coronary artery disease, NSTEMI, 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 Pain over upper abdomen, patient unable to describe the nature of her discomfort. Associated nausea/ vomiting, with poor p.o. intake. Unclear when she last had a bowel movement. Denies abdominal distention or inability to pass flatus. Problem: Dementia, constipation, gallstones, GERD History: Per patient which is limited I have considered the following differential diagnoses: Constipation, bowel obstruction, GERD, cholecystitis, biliary colic Plan: Patient has chronic abdominal pain from her gastritis see an constipation. Objectively, her abdomen is not distended, she is not actively vomiting, to suggest a bowel obstruction. I will be scanning her abdomen. Given upper abdominal discomfort I am considering underlying biliary versus gastric versus pancreatic etiology as cause for symptoms. She has been followed for her known gallstones, but has not been deemed a surgical candidate. In addition to screening labs we will add on LFTs and a lipase. Giving fluid and Zofran I have independently reviewed the following tests: Labs: Leukocytosis with left shift, not anemic, no electrolyte abnormality, LFTs are normal CT abdomen and pelvis:IMPRESSION: 1. New wall thickening of the urinary bladder. Differential considerations include cystitis. 2. Severe dense stool burden. No small bowel obstruction. 3. Cholelithiasis. 4. Abnormal wall thickening of the imaged esophagus. 5. Mild bibasilar atelectasis and/or pneumonitis We have yet to collect a urine sample, the patient was incontinent, she has evidence of UTI on CT scan, we will empirically treat. I reviewed her last culture and sensitivity, she is susceptible to ciprofloxacin. Her renal function is appropriate she does not require renal dosing Lab Data 01/08/25 00:45 01/08/25 00:45 Labs: Lab Results 01/08/25 Range/Units 00:45 WBC 12.6 H (4.8-10.8) X10*3/uL RBC 3.63 L (4.20-5.50) X10*6/uL Hgb 12.2 (12.0-16.0) g/dl Hct 34.2 L (37.0-47.0) % MCV 94.2 (80.0-98.0) fL MCH 33.6 H (27.0-33.0) pg MCHC 35.7 H (31.0-35.0) g/dl RDW 14.7 (11.0-16.0) % Plt Count 405 H (160-400) X10*3/uL MPV 11.1 (9.4-12.3) fL Immature Gran % (Auto) 0.3 (0.0-0.4) % Neut % (Auto) 75.2 H (45-73) % Lymph % (Auto) 15.9 L (20-40) % Pickett % (Auto) 8.2 (2-11) % Eos % (Auto) 0.1 (0-4) % Baso % (Auto) 0.3 (0-2) % Lymph # (Auto) 2.0 (1.2-4.9) X10*3/uL Pickett # (Auto) 1.0 (0.1-1.2) X10*3/uL Eos # (Auto) 0.0 (0.0-0.4) X10*3/uL Baso # (Auto) 0.0 (0.0-0.2) X10*3/uL Abs Immat Gran (auto) 0.04 H (0.00-0.03) X10*3/uL Absolute Neuts (auto) 9.4 H (2.0-8.3) x10*3/uL Absolute Nucleated RBC 0.000 (0.0-0.012) X10*3/uL Nucleated RBC % (auto) 0.0 (0.0-0.2) /100WBC Sodium 140 (135-145) mmol/L Potassium 3.3 D (3.3-5.1) mmol/L Chloride 105 (96-108) mmol/L Carbon Dioxide 23 (22-29) mmol/L Anion Gap 15 (12-20) BUN 11 (9-16) mg/dL Creatinine 0.62 (0.5-1.4) mg/dL Estim Creat Clear Calc 41.1 Estimated GFR > 60 Random Glucose 195 H (60-115) mg/dL Calcium 9.7 (8.4-10.2) mg/dL Magnesium 2.0 (1.6-2.6) mg/dL Total Bilirubin 0.5 (0.0-1.0) mg/dL AST 24 (5-31) U/L ALT 7 (0-31) U/L Alkaline Phosphatase 58 (39-117) U/L Total Protein 7.3 (6.5-8.0) g/dL Albumin 3.6 (3.5-5.0) g/dL Lipase 22 (8-78) U/L Discharge Plan Discharge Clinical Impression: Constipation, Urinary tract infection Patient Disposition: Home, Self-Care Instructions: Constipation (ED), Urinary Tract Infection in Older Adults (ED) Additional Instructions: You were found to have a urinary tract infection and to be constipated. The remainder of your screening labs were normal, see home care instructions. Take the ciprofloxacin as directed for the urinary tract infection. Take the Dulcolax as directed, take the milk of magnesia as directed for your constipation. Follow up with your primary care provider next week. Prescriptions: New ciprofloxacin HCl 250 mg tablet 250 mg PO Q12H Qty: 6 0RF bisacodyl [Dulcolax (bisacodyl)] 5 mg tablet,delayed release (DR/EC) 10 mg PO BEDTIME 2 Days Qty: 4 0RF magnesium hydroxide [Milk of Magnesia] 400 mg/5 mL suspension 5 ml PO BID Qty: 355 0RF No Action atorvastatin 40 mg tablet 40 mg PO DAILY Qty: 90 3RF mirtazapine 30 mg tablet 30 mg PO BEDTIME sertraline 25 mg tablet 1 tab PO DAILY albuterol sulfate 90 mcg/actuation HFA aerosol inhaler 2 puff PO Q4H PRN (Reason: Wheezing) clopidogrel 75 mg tablet 1 tab PO DAILY calcium carbonate-vitamin D3 [Oyster Shell Calcium-Vit D3] 500 mg-10 mcg (400 unit) tablet 1 tab PO BID melatonin 5 mg tablet 5 mg PO BEDTIME PRN (Reason: insomnia) pantoprazole 40 mg tablet,delayed release (DR/EC) 1 tab PO BID@0630,1630 Qty: 180 0RF sucralfate 1 gram tablet 1 g PO TID Qty: 90 0RF ondansetron 4 mg tablet,disintegrating 4 mg PO Q6-8H PRN (Reason: nausea and vomiting) Qty: 7 0RF metoprolol succinate 25 mg tablet extended release 24 hr 12.5 mg PO DAILY Qty: 90 1RF multivitamin Tablet 1 tab PO QAM caspofungin [Cancidas] 50 mg Recon Soln 50 mg IV Q24H Qty: 12 0RF amitriptyline 10 mg tablet 10 mg PO BEDTIME Print Language: Burkinan
[2025-01-08 00:48] LABS: MANUAL DIFF FLAG NO
[2025-01-08 00:49] LABS: Basophils Percent Auto 0.3 % (0-2); Eosinophils Percent Auto 0.1 % (0-4); Hematocrit 34.2 % (37.0-47.0); Hemoglobin 12.2 g/dl (12.0-16.0); Imm Gran Abs Auto 0.04 X10*3/uL (0.00-0.03); Imm Gran Pct Auto 0.3 % (0.0-0.4); Lymphocytes Percent Auto 15.9 % (20-40); Mean Corpuscular HGB Conc 35.7 g/dl (31.0-35.0); Mean Corpuscular Hemoglobin 33.6 pg (27.0-33.0); Mean Corpuscular Volume 94.2 fL (80.0-98.0); Mean Platelet Volume 11.1 fL (9.4-12.3); Monocytes Percent Auto 8.2 % (2-11); Neutrophils Absolute Auto 9.4 x10*3/uL (2.0-8.3); Neutrophils Percent Auto 75.2 % (45-73); Platelet Count 405 X10*3/uL (160-400); Red Blood Count 3.63 X10*6/uL (4.20-5.50); Red Cell Distribution Width 14.7 % (11.0-16.0); White Blood Count 12.6 X10*3/uL (4.8-10.8)
[2025-01-08 01:15] LABS: Alanine Aminotransferase 7 U/L (0-31); Albumin Level 3.6 g/dL (3.5-5.0); Anion Gap 15 (12-20); Aspartate Amino Transferase 24 U/L (5-31); Bilirubin Total 0.5 mg/dL (0.0-1.0); Blood Urea Nitrogen 11 mg/dL (9-16); Calcium 9.7 mg/dL (8.4-10.2); Carbon Dioxide 23 mmol/L (22-29); Chloride 105 mmol/L (96-108); Creatinine Clr Calc Pharmacy 41.1; Estimated Glomerular Filt Rate > 60; Glucose Random 195 mg/dL (60-115); Potassium 3.3 mmol/L (3.3-5.1); Sodium 140 mmol/L (135-145); Total Protein 7.3 g/dL (6.5-8.0)
[2025-01-08] MEDS: iohexoL 350 MG/ML 100 ML INFUS..BTL 85 ML IV (01:25)
--- OUTSIDE RECORDS SUMMARY | 2025-01-08 01:49 | XMS_ITS | Encounter Summary ---
Author Organization [employer] Address [address] [place] [address] Care Team Providers Care Lead Printer Name Role Phone Name, Stef ESTRADA Primary Care Provider [phone] Reason for Visit * Reason Onset Date Comments Call Back Request 01/03/2025 Encounter Details Date Type Department Care Team ([facility] Contact Info) Description 01/03/2025 Telephone [facility] [address] [place], [place] [phone] Name, MD Stef [address] [place] [address] Call Back Request Social History Tobacco Use Types Packs/Day Years [...] encounter Miscellaneous Notes * Telephone Encounter - Breonna Simental RN - 01/03/2025 1:02 PM EDT Images from the original note were not included. TC placed to [facility] with [facility] to inform of below PCP message. [facility] states she will inform the visiting nurse. [facility] denies any questions at this time. MD Breonna Isaacs RN Caller: Unspecified (Today, 10:43 AM) Yes, I think PICC Line should be discontinued. * Telephone Encounter - Aurora Weaver - 01/03/2025 12:47 PM EDT Tc from [facility] returning phone call. * Telephone Encounter - Breonna Simental RN - 01/03/2025 11:49 AM EDT Images from the original note were not included. TC placed to [facility] to inform of below PCP message. No answer, LVM to call office back and ask to speak to the blue team nurses. MD Breonna Isaacs RN Caller: Unspecified (Today, 10:43 AM) Yes, I think PICC Line should be discontinued. * Telephone Encounter - Breonna Simental RN - 01/03/2025 11:34 AM EDT TC placed to [facility] with [facility] regarding IV antibiotics in home. Pt was prescribed thefollowing medication when they were in the hospital: caspofungin [Cancidas] 50 mg Recon Soln; 50 mgIV Q24H Qty: 12 0RF. [facility] states they have ordered to pull the line tomorrow as pt finishes antibiotics. Pt is not being followed by their infectious disease specialist. [facility] asking PCP if they are okay to pull the line tomorrow (they do have orders to) and if the PCP wants the pt on further antibiotics. Advised [facility] that pt has HDF on 01/13/25. Message forwarded to PCP to review and advise. * Telephone Encounter - Aurora Weaver - 01/03/2025 10:43 AM EDT Tc from [facility] with [facility] requesting a call back from nurses regarding IV antibiotics in home. [phone] Ext [phone] documented in this encounter Plan of Treatment Upcoming Encounters Date Type Department Care Team (Late st Contact Info) Description 01/13/2025 9:30 AM EDT Office Visit [facility] [address] [place] [phone] Name, MD Stef [address] [place] [phone] 03/07/2025 1:00 PM EDT Office Visit [facility] [address] [place] [phone] Name, MD Stef [address] [place] [phone] documented as of this encounter Visit Diagnoses Not on filedocumented in this encounter Additional Health Concerns Assessment Noted Time PHQ-9 Depression Total Score: 0 01/28/20 10:49 AM EDT documented as of this encounter Care Teams Lead Printer Relationship Specialty Start Date End Date Name, MD Stef [address] [place] [address] PCP - General Family Medicine 01/28/16 Yuliya [facility] 07/27/24 documented as of this encounter
--- OUTSIDE RECORDS SUMMARY | 2025-01-08 01:49 | XMS_ITS | Encounter Summary ---
Author Organization [employer] Address [address] [place] [address] Care Team Providers Care Artificial Stone Setter Name Role Phone Name, Stef ESTRADA Primary Care Provider [phone] Reason for Visit * Reason Onset Date Comments Paperwork/Forms 04/18/2024 Encounter Details Date Type Department Care Team ([facility] Contact Info) Description 04/18/2024 Telephone [facility] [address] [place], [place] [phone] Name, MD Stef [address] [place] [address] Paperwork/Forms Social History Tobacco Use Types Packs/Day [...] PM EDT Tc from Emily, nurse at [facility] requesting paperwork to be sign as soon as possible in order to them be able to admit pt into services. Please contact Emily at [phone] if any question. documented in this encounter Plan of Treatment Upcoming Encounters Date Type Department Care Team (Late st Contact Info) Description 01/13/2025 9:30 AM EDT Office Visit [facility] [address] [place] [phone] NameStef MD [address] [place] [phone] 03/07/2025 1:00 PM EDT Office Visit [facility] [address] [place] [phone] Stef Greer MD [address] [place] [phone] documented as of this encounter Visit Diagnoses Not on filedocumented in this encounter Additional Health Concerns Assessment Noted Time PHQ-9 Depression Total Score: 0 01/28/20 24 10:49 AM EDT documented as of this encounter Care Teams Artificial Stone Setter Relationship Specialty Start Date End Date Stef Greer MD [address] [place] [address] PCP - General Family Medicine 01/28/16 Yuliya ALFRED 07/27/24 documented as of this encounter
--- OUTSIDE RECORDS SUMMARY | 2025-01-08 01:49 | XMS_ITS | Data Portability ---
Author Organization [email or web address] [facility] [employer] Address [address] [place] [address] Care Team Providers Care Field Assembly Supervisor Name Role Phone [facility] Referring Provider [facility] Referring Provider Assessment Encounter Date Assessment Date Assessment LastModified by Organization Details LastModified Time 04/22/2022 04/22/2022 I have reviewed and agree with the assessment and plan as documented by the weaver apprentice. I provided real-time medical direction for this [...] [id number] Ralf Valladares MD Main - [facility] [address] [place] [phone] 04/22/2022 14:09:54 06/10/2022 12:23:06 Pain in wrist [id number] M25.531 Health Concerns Section Related Observation LastModified by Organization Detai ls LastModified Time None Recorded Concern Status LastModified by Organization Details LastModified Time None Recorded Advance Directives Directive None Recorded Payers Encounter Date Sequence Insurance Name Policy Number Policy Hnison Covered Member ID Hinson Member ID Guarantor Name 04/22/2022 1 [facility] - DOS PRIOR TO 2023 - DUAL ELIGIBLE (MEDICARE REPLACEMENT/ADV ANTAGE - HMO) Elisa Weaver [id number] Elisa Weaver Notes Date Note Type Note [...] .................. ............... [facility] Nursing Assessment: Comments: Per CLERK FUNERAL DETAIL, if possible please avoid Bactrim as treatment, as member has had an BRIANNE in the past with use of this abx .................. .................. .................. .................. .................. .................. .................. ............... [employer] Set Up Operator Note: eval for pain after right wrist [...] family members in attendance care for pt. [facility] ordered 15 mg toradol for pain, given with some relief. elevated arm on pillow, put ice pack on wrist area with some relief. [facility] to call and try and get an earlier appointment for ortho .................. .................. .................. .................. .................. .................. .................. ............... Disposition: Fulfilled Ralf Valladares MD [address], [place], [phone], [facility] - ERIC BREEN 04/22/2022 19:27:13 OBGyn Episode No OBEpisode recorded.
--- OUTSIDE RECORDS SUMMARY | 2025-01-08 01:49 | XMS_ITS | Encounter Summary ---
Author Organization [facility] Address [address] [place] [address] Care Team Providers Care Dyehouse Worker Name Role Phone Name, Stef ESTRADA Primary Care Provider [phone] Encounter Details Date Type Department Care Team (Late st Contact Info) Description 11/12/2022 Telephone [facility] [address] [place] [address] [phone] Name, MD Stef [address] [place] [address] [phone] Social History Tobacco Use Types Packs/Day Years [...] Description 01/13/2025 9:30 AM EDT Office Visit [facility] [address] [place] [address] [phone] Name, MD Stef [address] [place] [address] [phone] 03/07/2025 1:00 PM EDT Office Visit [facility] [address] [place] [address] Name, [place] [address] documented as of this encounter Visit Diagnoses Not on filedocumented in this encounter Additional Health Concerns Assessment Noted Time PHQ-9 Depression Total Score: 0 09/22/20 22 10:00 AM EST documented as of this encounter Care Teams Dyehouse Worker Relationship Specialty Start Date End Date Name, MD Stef [address] [place] [phone] PCP - General Family Medicine 01/28/16 Yulyia CLEARY 07/27/24 documented as of this encounter
--- OUTSIDE RECORDS SUMMARY | 2025-01-08 01:49 | XMS_ITS | Clinical Summary ---
Author Organization [employer] Address [address] [facility] [address] [place] [address] Care Team Providers Care Data Analytics Developer Name Role Phone Name, Stef ESTRADA Primary Care Provider [phone] Allergies Active Allergy Reactions Criticality Noted Date [...] THE EVENING 60 tablet 11 025 Active metoprolol succinate XL (Toprol-XL) 25 MG 24 hr tablet Take 0.5 tablets (12.5 mg) by mouth Once per day. Do not crush or chew. 15 tablet 2 025 Active amitriptyline (Elavil) 10 MG tablet TAKE 1 TABLET BY MOUTH AT BEDTIME 90 tablet 1 025 Active sertraline (Zoloft) 25 MG tabletIndications:M oderate dementia without behavioral disturbance, psychotic disturbance, mood disturbance, or anxiety, unspecified dementia type (CMS/HCC) TAKE 1 TABLET BY MOUTH EVERY MORNING 30 tablet 025 Active Multiple Vitamin (Multivitamin) tablet Take 1 tablet by mouth in the morning. Active sertraline (Zoloft) 25 MG tabletIndications:M oderate dementia without behavioral disturbance, psychotic disturbance, mood disturbance, or anxiety, unspecified dementia type (CMS/HCC) Take 1 tablet (25 mg) by mouth in the morning. 30 tablet 025 2024 Discontinued Multiple Vitamin (multivitamin) capsule Take 1 capsule by mouth Once per day. 30 capsule 11 025 2024 Discontinued(M ed list cleanup (will not trigger notification to Pharmacy)) Active [...] Coronary arteriosclerosis 09/13/2022 Decrease in appetite 09/13/2022 04/25/2 024 Myocardial infarction 09/13/20222023 Dyspnea 09/22/2018 01/28/2024 [...] Encounters Date Type Department Care Team Description 01/03/[address] [address] Stef Greer MD Call Back Request 12/28/2024 Patient Outreach [address] [address] Stef Greer MD Transition Of Care (Tcm) (HDF- Direct Line - Scheduled) 12/27/[address] [address] [place], [place], [place] [facility] Moderate dementia without behavioral disturbance, psychotic disturbance, mood disturbance, or anxiety, unspecified dementia type ([facility]) 12/26/[address] [address] Stef Greer MD verbal order needed 12/21/2024 Orders Only GENERIC EXTERNAL DATA DEPARTMENT Provider, Generic External Data 12/06/[address] [address] Stef Greer MD Results 12/06/2024 Orders Only [address] [address] Stef Greer MD Abnormal TSH (Primary Dx) 12/05/2024 1:00 PM EST Office Visit [facility] [place] [address] Stef Greer MD Anorexia (Primary Dx); Weight loss; Encounter for immunization; Dementia associated with other underlying disease, with anxiety, unspecified dementia severity ([facility]/HCC) 12/05/2024 Orders Only GENERIC EXTERNAL DATA DEPARTMENT Provider, Generic External Data 12/05/2024 Telephone [facility] MEDICINE [address] [place] [address] Stef Greer MD Durable Medical Equipment (boost) 12/05/2024 Travel 11/30/2024 Telephone [facility] [address] [place], [place] [phone] Stef Greer MD chartprep 11/20/2024 Refill [facility] MEDICINE [address] [place] [address] Stef Greer MD 11/16/2024 Orders Only GENERIC EXTERNAL DATA DEPARTMENT Provider, Generic External Data 10/28/2024 Patient Outreach [address] [address] Stef Greer MD Transition Of Care (Tcm) (HDF #2 - Unable to LVM) 10/28/[address] [address] Stef Greer MD Durable Medical Equipment 10/28/[address] [address] Stef Greer MD Hospital Follow-up 10/26/2024 Patient Outreach [facility] MEDICINE [address] [place] [phone] Stef Greer MD Transition Of Care (Tcm) (Unable to LVM ) 10/26/2024 Telephone [facility] MEDICINE [address] [place] [phone] Jenna Mixon, PharmD 10/26/2024 Refill [facility] MED[facility]INE [address] [place] [address] Jenna Mixon, PharmD 10/19/2024 Refill [facility] MED[facility]INE [address] [place] [address] Stef Greer MD Closed nondisplaced fracture of right clavicle, unspecified part of clavicle, initial encounter; Osteoporosis, unspecified osteoporosis type, unspecified pathological fracture presence; Moderate dementia without behavioral disturbance, psychotic disturbance, mood disturbance, or anxiety, unspecified dementia type ([facility]) 10/19/2024 Refill [facility] MED[facility]INE [address] [place] [address] Britney Pollard DO Moderate dementia without behavioral disturbance, psychotic disturbance, mood disturbance, or anxiety, unspecified dementia type ([facility]/HCC) 10/16/2024 Refill [facility] MED[facility]INE [address] [place] [address] Name, MD Stef Moderate dementia without behavioral disturbance, psychotic disturbance, mood disturbance, or anxiety, unspecified dementia type ([facility]) from Last 3 Months Immunizations Name Administration [...] Description 01/13/2025 9:30 AM EDT Office Visit [facility] MED[facility] [address] [place] [address] Name, MD Stef [address] [place] [address] 03/07/2025 1:00 PM EDT Office Visit [facility] MED[facility]INE [address] [place] [address] Name, MD Stef [address] [place] [address] Health Maintenance Due Date Last Done Comments Alcohol/Substance Use Screening 1952 RSV Patients and Patients Aged 60 years or older (1 - 1-dose 75+ series) 2015 COVID-19 Vaccine ( season) 2024 02/25/2022, 01/09/2021 Depression Screening 01/27/2025 01/28/2024, 01/28/20 SDOH Screening 01/27/2025 01/28/2024 Tobacco Screening 12/05/2025 [...] Procedure Name Priority Date/Time Associated Diagnosis Comments CBC WITH AUTO DIFFERENTIAL Routine 12/21/2024 2:23 PM EDT T4, FREE Routine 12/05/2024 2:01 PM EST BASIC METABOLIC PANEL Routine 12/05/2024 2:01 PM EST CBC Routine 12/05/2024 2:01 PM EST TSH W/REFLEX TO FT4 Routine 12/05/2024 2 :01 PM EST Anorexia Weight loss MAGNESIUM Routine 12/05/2024 2:01 PM EST Hypokalemia HIGH SENSITIVITY TROPONIN I Routine 11/16/2024 6:11 [...] dementia severity (CMS/HCC) Coronary artery disease involving [place] coronary artery of [place] heart without angina pectoris Other chronic pain Mixed stress and urge urinary incontinence from Last 3 Months or Most Recently Relevant to Health Maintenance Results * (ABNORMAL) CBC auto differential (12/21/2024 2:23 PM EDT) White Blood Count 7.7 4.8 - 10.8 X10*3/uL [facility] Red Blood Count 4.02(L) 4.20 - 5.50 X10*6/uL [facility] Hemoglobin 13.1 12.0 - 16.0 g/dl [facility] Hematocrit 38.2 37.0 - 47.0 % [facility] Mean Corpuscular Volume 95.0 80.0 - 98.0 fL [facility] Mean Corpuscular Hemoglobin 32.6 27.0 - 33.0 pg [facility] Mean Corpuscular HGB Conc 34.3 31.0 - 35.0 g/dl [facility] Red Cell Distribution Width 14.1 11.0 - 16.0 % [facility] Platelet Count 392 160 - 400 X10*3/uL [facility] Mean Platelet Volume 10.7 9.4 - 12.3 fL [facility] Neutrophils Percent Auto 48.8 45 - 73 % [facility] Imm Gran Pct Auto 0.4 0.0 - 0.4 % [facility] Lymphocytes Percent Auto 36.9 20 - 40 % [facility] Monocytes Percent Auto 12.4(H) 2 - 11 % [facility] Eosinophils Percent Auto 0.9 0 - 4 % [facility] Basophils Percent Auto 0.6 0 - 2 % [facility] NRBC Pct Auto 0.0 0.0 - 0.2 /100WBC [facility] Neutrophils Absolute Auto 3.8 2.0 - 8.3 x10*3/uL [facility] Imm Gran Abs Auto 0.03 0.00 - 0.03 X10*3/uL [facility] Lymphocytes Absolute Auto 2.9 1.2 - 4.9 X10*3/uL [facility] Monocytes Absolute Auto 1.0 0.1 - 1.2 X10*3/uL [facility] Eosinophils Absolute Auto 0.1 0.0 - 0.4 X10*3/uL [facility] Basophils Absolute Auto 0.1 0.0 - 0.2 X10*3/uL [facility] NRBC Abs Auto 0.000 0.0 - 0.012 X10*3/uL [facility] 12/21/2024 2:23 PM EDT 12/21/2024 2:26 PM EDT us Generic External Data Provider LAB BLOOD ORDERAB LES Final Result Performing Organization Address [facility]/ZIP Co de Phone Number [facility] [address] [place] [phone] * (ABNORMAL) TSH W/Reflex to FT4 (12/05/2024 2:01 PM EST) Pathologist [facility] TSH reflex Free T4 0.28(L) 0.32 - 4.0 uIU/mL [facility] Blood Venous blood specimen / Unknown 12/05/2024 2:01 PM EST 12/05/2024 4:20 PM EST Stef Greer MD LAB BLOOD ORDERABLES Final Resul t Performing Organization Address [facility] Co de Phone Number [facility] [address] [place] [phone] * (ABNORMAL) CBC (12/05/2024 2:01 PM EST) White Blood Count 5.9 4.8 - 10.8 X10*3/uL [facility] Red Blood Count 5.17 4.20 - 5.50 X10*6/uL [facility] Hemoglobin 17.0(H) 12.0 - 16.0 g/dl [facility] Hematocrit 49.3(H) 37.0 - 47.0 % [facility] Mean Corpuscular Volume 95.4 80.0 - 98.0 fL [facility] Mean Corpuscular Hemoglobin 32.9 27.0 - 33.0 pg [facility] Mean Corpuscular HGB Conc 34.5 31.0 - 35.0 g/dl [facility] Red Cell Distribution Width 15.4 11.0 - 16.0 % [facility] Platelet Count 216 160 - 400 X10*3/uL [facility] Mean Platelet Volume 13.0(H) 9.4 - 12.3 fL [facility] NRBC Pct Auto 0.0 0.0 - 0.2 /100WBC [facility] NRBC Abs Auto 0.000 0.0 - 0.012 X10*3/uL [facility] 12/05/2024 2:01 PM EST 12/05/2024 4:20 PM EST us Generic External Data Provider LAB BLOOD ORDERAB LES Final Result [facility] [address] [place] [phone] * T4, Free (12/05/2024 2:01 PM EST) Free T4 (Free Thyroxine) 1.29 0.71 - 1.85 ng/dL [facility] 12/05/2024 2:01 PM EST 12/05/2024 4:20 PM EST us Stef Greer MD LAB BLOOD ORDERABLES Final Resul t Performing Organization Address City/[facility]/ZIP Co de Phone Number [facility] [address] [place] [phone] * Magnesium (12/05/2024 2:01 PM EST) Magnesium 2.3 1.6 - 2.6 mg/dL [facility] Blood Venous blood specimen / Unknown 12/05/2024 2:01 PM EST 12/05/2024 4:20 PM EST us Huma Mixon MD LAB BLOOD ORDERAB LES Final Result Performing Organization Address [facility] Co de Phone Number [facility] [address] [place] [phone] * (ABNORMAL) Basic Metabolic Panel (12/05/2024 2:01 PM EST) Pathologist [facility] Sodium 136 135 - 145 mmol/L [facility] Potassium 3.9 3.3 - 5.1 mmol/L [facility] Comment:Slight Hemolysis.Int erpret result with caution. Chloride 103 96 - 108 mmol/L [facility] Carbon Dioxide 20(L) 22 - 29 mmol/L [facility] Anion Gap 17 12 - 20 [facility] Urea Nitrogen (BUN) 9 9 - 16 mg/dL [facility] Creatinine, Serum 0.64 0.5 - 1.4 mg/dL [facility] Estimated Glomerular Filt Rate >60 [facility] Comment:Chronic Kidney Disea se: Estimated GFR < 60 mL/min/[id number] Kidney Disease: Estimated GFR < 15 mL/min/1.73m2 Glucose 117(H) 60 - 115 mg/dL [facility] Calcium 9.9 8.4 - 10.2 mg/dL [facility] 12/05/2024 2:01 PM EST 12/05/2024 4:20 PM EST us Generic External Data Provider LAB BLOOD ORDERAB LES Final Result Performing Organization Address City/[facility]/ZIP Co de Phone Number [facility] [address] [place] [phone] * (ABNORMAL) High Sensitivity Troponin I (11/16/2024 6:11 PM EST) Only the most recent of2 resultswithin the time period is included. Pathologist [facility] TROPONIN I HIGH SENSITIVITY 26.6(H) <3.5 - 17.0 ng/L [facility] Comment:The Lal high sens itivity Troponin-I results should beused in conjunction with other diagnostic information suchas ECG, clinical observations and information, and patientsymptoms to aid in the diagnosis of [place]. 11/16/2024 6:11 PM EST 11/16/2024 6:12 PM EST Generic External Data Provider LAB BLOOD ORDERAB LES Final Result Performing Organization Address [facility] Co de Phone Number [facility] [address] [place] [phone] * Culture, Urine, Routine (11/16/2024 5:04 PM EST) Urine Urine specimen from urinary conduit / Unknown 11/16/2024 5:04 PM EST 11/16/2024 5:04 PM EST Comment:Urine Cath Narrative [facility] - 11/18/2024 8:46 AM EST Klebsiella pneumoniae Quant > 100,000 cfu/mL Klebsiella pneumoniae: Ampicillin >=32(R) Klebsiella pneumoniae: Cefazolin >=32(R) Klebsiella pneumoniae: Cefepime <=0.12(S) Klebsiella pneumoniae: Ceftriaxone <=0.25(S) Klebsiella pneumoniae: Ciprofloxacin <=0.06(S) Klebsiella pneumoniae: Gentamicin <=1(S) Klebsiella pneumoniae: Nitrofurantoin 64(I) Klebsiella pneumoniae: Trimethoprim/Sulfamethoxazole <=20(S) Specimen Source: Urine Catheterized Generic External Data Provider LAB MICROBIOLOGY - GENERAL ORDERABLES Final Result Performing Organization Address [facility] Co de Phone Number [facility] [address] [place] [phone] * Hold Lavender - Possible Hematology (11/16/2024 4:29 PM EST) Hold Lavender - Possible Hematololgy SEE NOTE [facility] Comment:Specimen will be hel d untested for 8 hours. Call Hematologyif testing is desired. 11/16/2024 4:29 PM EST 11/16/2024 4:52 PM EST us Generic External Data Provider HISTORICAL/NON OR DERABLE LABS Final Result Performing Organization Address City/[facility]/ZIP Co de Phone Number [facility] [address] [place] [phone] * HOLD LT BLUE - POSSIBLE COAG (11/16/2024 4:29 PM EST) Hold Lt Blue - Possible Coag SEE NOTE [facility] Comment:Specimen will be hel d untested for 4 hours. Call Hematologyif testing is desired. 11/16/2024 4:29 PM EST 11/16/2024 4:52 PM EST Generic External Data Provider LAB BLOOD ORDERAB LES Final Result Performing Organization Address [facility]/ZIP Co de Phone Number [facility] [address] [place] [phone] * (ABNORMAL) Urinalysis, Complete, with Reflex to Culture (11/16/2024 4:29 PM EST) Color Urine Yellow [facility] Appearance Urine Turbid [facility] PH 7.0 5.0 - 9.0 [facility] Glucose Urine UA Negative Negative mg/dL [facility] Urine Blood Large (3+)(A) Negative [facility] Specific [place] - Urine 1.020 1.005 - 1.025 [facility] Urine Protein 30 (1+)(A) Neg-Trace mg/dL [facility] Urine Ketones 15 Negative mg/dL [facility] Nitrite Urine Positive(A) Negative [facility] Leukocyte Esterase Urine Large (3+)(A) Negative [facility] RBC Urine >20(A) 0 - 2 /HPF [facility] Urine WBC >50(A) 0 - 5 /HPF [facility] Urine Squamous Epithelial Cell 6-10 0 - 2 /HPF [facility] Urine Bacteria 3+ None Seen [facility] Hyaline Casts, Urine 6-10 0 - 2 /LPF [facility] 11/16/2024 4:29 PM EST 11/16/2024 4:50 PM EST Narrative [facility] - 11/16/2024 5:04 PM EST Urine, Catheterized us Generic External Data Provider LAB URINE ORDERAB LES Final Result Performing Organization Address [facility]/ZIP Co de Phone Number [facility] [address] [place] [phone] * (ABNORMAL) Lipid Panel, Standard (01/28/2024 11:40 AM EDT) Triglycerides 265(H) <150 mg/dL [facility] Comment:Desirable Triglyceri de: less than 150 mg/dLBorderline High Triglyceride 150-199 mg/dLHigh Triglyceride: 200-499 mg/dLVery High Triglyceride: greater than or equal to 5OO mg/dL Cholesterol 212(H) <200 mg/dL [facility] Comment:Desirable Cholestero l: less than 200 mg/dLBorderline High Cholesterol: 200-239 mg/dLHigh Cholesterol: greater than 239 mg/dL LDL Cholesterol Calculated 122(H) <100 mg/dL [facility] Comment:Desirable LDL: less than 100 mg/dLNear Optimal/Above Optimal LDL: 110- 129 mg/dLBorderline High LDL: 130-159 mg/dLHigh LDL: 160-189 mg/dLVery High LDL: greater than or equal to 190 mg/dL HDL Cholesterol 37(L) >40 mg/dL [facility] Comment:Desirable HDL: great er than 40 mg/dL Note: This HDL assay may give artificially low results in patients with liver disease. Blood Venous blood specimen / Unknown 01/28/2024 11:40 AM EDT 01/28/2024 1:30 PM EDT us Stef Greer MD LAB BLOOD ORDERABLES Final Resul t Performing Organization Address City/[facility]/ZIP Co de Phone Number [facility] [address] [place] [phone] from Last 3 Months or Most Recently Relevant to Health Maintenance Insurance [facility] Care Teams Data Analytics Developer Relationship Specialty Start Date End Date Name, MD Stef [address] [place] [address] PCP - General Family Medicine 01/28/16 Yuliya CLEARY 07/27/24
--- OUTSIDE RECORDS SUMMARY | 2025-01-08 01:49 | XMS_ITS | Encounter Summary ---
Author Organization [employer] Address [address] [facility] [address] [place] [address] Care Team Providers Care Used Car Make Ready Worker Name Role Phone Name, Stef ESTRADA Primary Care Provider [phone] Reason for Visit * Reason Onset Date Comments Hospital Follow-up 10/28/2024 Encounter Details Date Type Department Care Team ([facility] st Contact Info) Description 10/28/2024 Telephone [facility] MED[facility] [address] [place], [place] [phone] Name, MD Stef [address] [place] [address] Hospital Follow-up Social History Tobacco Use Types [...] from pt requesting a HDF appt. [place] [facility] [place]: [place]18 Discharge date: 10/20 Diagnosed: Gastritis and UTI Huma states that Pt son told her that they should hold med clopidogrel (Plavix) 75 MG tablet Due to pt having bad Gastritis. Huma said that she looked at the Notes from the Hospital and there is nothing about holding them on the Notes. *Send message to [place] Clinical Care Coordinators Contact MICA SPREADER to Schedule pt [phone] documented in this encounter Plan of Treatment Upcoming Encounters Date Type Department Care Team ([facility] st Contact Info) Description 01/13/2025 9:30 AM EDT Office Visit [facility] MED[facility]INE [address] [place] [phone] NameStef MD [address] [place] [phone] 03/07/2025 1:00 PM EDT Office Visit [facility] [address] [place] [address] Stef Greer MD [address] [place] [phone] documented as of this encounter Visit Diagnoses Not on filedocumented in this encounter Additional Health Concerns Assessment Noted Time PHQ-9 Depression Total Score: 0 01/28/20 10:49 AM EDT documented as of this encounter Care Teams Used Car Make Ready Worker Relationship Specialty Start Date End Date Name, MD Stef [address] [facility] [place] [address] PCP - General Family Medicine 01/28/16 Yuliya ALFRED 07/27/24 documented as of this encounter
[2025-01-08 02:11] LABS: Alkaline Phosphatase 58 U/L (39-117); Lipase 22 U/L (8-78)
[2025-01-08 02:59] VITALS: BP 143/86; PULSE 102; RESP 14; TEMP 37.3; O2SAT 98
[2025-01-08] MEDS: Milk of Magnesia 30 ML ORAL.SUSP PO (03:52)
[2025-01-08] MEDS: bisacodyL 5 MG TABLET.DR 10 MG PO (03:52)
--- NOTE | 2025-01-08 04:00 | PC.NURSE ---
pt found to ave wet patient gown pt found to have self removed iv pt could not tell this rn what happened
[2025-01-08 04:40] VITALS: BP 143/86; PULSE 102; RESP 14; TEMP 37.3; O2SAT 98
--- NOTE | 2025-01-08 05:02 | PC.NURSE ---
pt discharge via ems to pt home discharge report called to pt son and granddaughter report given to ems prior to transport
== END 2025-01-08 04:40 | disposition home or self-care (01) ==
PROVIDERS: Physician Assistant Medical; Emergency Provider Emergency Medicine
DX: K59.00 Constipation, unspecified (principal); N39.0 Urinary tract infection, site not specified; R10.10 Upper abdominal pain, unspecified; I10 Essential (primary) hypertension; E78.5 Hyperlipidemia, unspecified; Z79.02 Long term (current) use of antithrombotics/antiplatelets; Z79.899 Other long term (current) drug therapy
CPT/HCPCS: 36415; 74177; 80053; 83690; 83735; 85025; 96361; 96374; 99284; J2405; Q9967

== ENCOUNTER → 2025-01-08 00:18 | Outpatient (BNV) | payer OTHER, SELFPAY | PROVIDERS: Emergency Provider Emergency Medicine; Visit Provider Radiology Neuroradiology | DX: K80.20 Calculus of gallbladder without cholecystitis without obstruction (principal); N32.89 Other specified disorders of bladder; R19.5 Other fecal abnormalities | CPT/HCPCS: 74177 ==

== ENCOUNTER 2025-01-21 16:58 | Inpatient (IN) | payer OTHER, SELFPAY ==
--- NOTE | ~2025-01-21 | US_ITS ---
CLINICAL HISTORY: choleycysitis, GIB --- Additional Notes or Special Instructions: to be done in the AM per Priyanka and Dr. adkins US abdomen limited Comparison: CT/SR - CT ABDOMEN PELVIS WO IV CON - 01/21/25 19:10 EDT Findings: There is no intrahepatic bile duct dilatation. The common duct is 6 mm in diameter. No shadowing filling defects within the duct to suggest choledocholithiasis. The gallbladder contains multiple shadowing stones predominantly within the gallbladder neck. Gallbladder wall measures 3 mm, top-normal. IMPRESSION: 1. Numerous shadowing stones within the gallbladder neck. Office Runner reports a negative sonographic Shepard's sign. No pericholecystic fluid. Findings suggest cholelithiasis without acute cholecystitis. 2. Top-normal common duct at 6 mm. 3. If there is continued concern for acute cholecystitis consider HIDA scan or MRCP. This document has been electronically signed by: Gabby Michael MD on 01/22/2025 08:36:41
--- NOTE | ~2025-01-21 | XR_ITS ---
CLINICAL HISTORY: epig pain Chest Radiographs, AP Comparison: None Findings: No cardiomegaly. Normal mediastinal contours. No pneumothorax; Skin folds on the right. No opacity. No pleural effusion. Normal upper abdomen. No acute fracture. 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 Impression: No acute findings. This document has been electronically signed by: Sharee Walden MD on 01/21/2025 18:07:56
--- NOTE | ~2025-01-21 | CT_ITS ---
CLINICAL HISTORY: Upper abdominal pain Vomiting with leukocytosis CT abdomen and pelvis without contrast Comparison: None Findings: No consolidation at the lung bases. No cardiomegaly. Pericardial effusion measuring 1.2 cm in thickness. Severe calcification of the mitral annulus. Mild calcification of the aortic valve. Severe calcified coronary artery disease. Cholelithiasis. Question of mild gallbladder wall thickening. The gallbladder is mildly dilated, measuring 3.9 cm in transverse dimension. Focus of air in the bladder. Atrophic spleen, measuring 5.1 cm in length. No hydronephrosis. Left nephrolithiasis measures up to 4 mm. Mild left renal scarring. The other solid organs are unremarkable. Fluid in the distal esophagus. Wall thickening of the distal esophagus. Gastric distention. No dilation of the small bowel and colon. No definitive bowel wall thickening. A normal appendix is likely identified. No secondary signs of acute appendicitis. No aneurysm. Severe calcified atherosclerotic disease. No lymphadenopathy. No ascites. [id number] height loss of L2 with a fracture line near the superior endplate. 4 mm retropulsion of fracture fragments. No involvement of the posterior elements. Impression: Cholelithiasis with question of mild gallbladder wall thickening. If there is clinical concern for acute cholecystitis evaluate further with right upper quadrant ultrasound. Focus of air in the bladder could be secondary to recent instrumentation or emphysematous cystitis. Correlate with urinalysis. Fluid in the distal esophagus could be secondary to active vomiting or reflux. There is esophageal wall thickening which may indicate esophagitis. Gastric distention could be secondary to delayed emptying or recent ingestion. No dilation of the small bowel or colon to indicate obstruction or ileus. No definitive bowel wall thickening to indicate enteritis or colitis. This document has been electronically signed by: Sharee Walden MD on 01/21/2025 19:44:46
[2025-01-21 17:05] VITALS: PULSE 96
--- NOTE | 2025-01-21 17:12 | ED_ITS ---
HPI - General Adult General Chief complaint: Abdominal Pain Stated complaint: vomiting coffee ground emesis Time Seen by Provider: 01/21/25 17:11 Source: patient Mode of arrival: ambulatory Limitations: no limitations History of Present Illness HPI narrative: 83 female with past medical history of HLD, HTN, CVA, NSTEMI, dementia, CAD on Plavix and statin, gallstones recently diagnoses with esophageal candidiasis on 10/18 just discharges on 12/23 for UTI treated with cefuroxime comes here as she been vomiting coffee colored since yesterday patient was seen here 01/08/2025 for constipation and had UTI was given Cipro also patient had Gram-negative bacteremia in 07/28 Related Data Allergies Allergy/AdvReac Type Severity Reaction Status Date / Time No Known Allergies Allergy Verified 01/22/25 00:55 Review of Systems 2 Review of Systems: Yes all other systems are reviewed and are negative [facility] Social History Social History Unable to assess alcohol history related to: Unable to respond and Unknown Patient Tobacco Use Status: Never used Tobacco Use of substances other than those prescribed or required for medical reasons: Unknown Advance Directives: No Advance Directives Information Provided: No Do you have a plan to hurt others: No Plan Nutrition Risks: No Nutritional Risk Patient : No Physical Exam ED Vital Signs: Vital Signs - 24 hr 01/21/25 17:17 01/21/25 17:56 01/21/25 20:22 Temperature 97.6 F Pulse Rate 111 H 102 H 92 Respiratory Rate 24 H 16 17 Blood Pressure 118/60 100/52 L 118/58 L Pulse Oximetry 96 98 97 Oxygen Delivery Method Room Air Room Air Room Air BMI result Body Mass Index 22.0 Appearance: Alert. Oriented X3. No acute distress. Eyes: Pallor+ right conjunctiva inflamed with purulent discharge ENT: Pharynx normal. Oral Mucosa moist Neck: Normal inspection. Neck supple. CVS: Normal heart rate and rhythm. Pulses normal. Respiratory: No respiratory distress. Equal air entry bilateral, no wheezing/rales/rhonchi Abdomen: Soft and mild epigastric tenderness Bowel sounds are present, no mass palpable, no CVA tenderness Rectal: Minimal stool which is brown color guaiac negative Skin: Skin warm and dry. Normal skin color. Normal skin turgor. Extremities: No lower extremity edema. No calf tenderness Neuro: Oriented X 3. No motor deficit. No sensory deficit.No cerebellar signs , cranial nerves II-XII intact Medications Administered Generic Name Dose Route Start Last Admin Trade Name Josh PRN Reason Stop Dose Admin Piperacillin Sod/Tazobactam 50 mls @ 100 mls/hr 01/21/25 23:00 01/21/25 23:16 Sod 3.375 gm/ Sodium Chloride IV Infused Q6H TAL Infusion Lactated Ringer's 1,000 mls @ 150 mls/hr 01/21/25 23:45 01/22/25 00:06 Lr IVCONT 01/22/25 06:24 150 mls/hr .Q6H40M TAL Administration Insulin Human Lispro 0 unit 01/21/25 23:15 01/21/25 23:42 Insulin Lispro 100 Unit/Ml 3 Ml Vial SUBCUT Not Given Q6H TAL Protocol Ondansetron HCl 4 mg 01/21/25 22:17 01/21/25 23:59 Ondansetron Hcl 4 Mg/2 Ml Vial IVPUSH 4 mg Q8H PRN Administration Nausea and Vomiting Sodium Chloride 3 ml 01/22/25 00:00 01/22/25 00:05 0.9 % Sodium Chloride Flush 3 Ml Syringe IVFLUSH Not Given QSHIFT TAL Discontinued Medications Generic Name Dose Route Start Last Admin Trade Name Josh PRN Reason Stop Dose Admin Ceftriaxone Sodium 1 gm 01/21/25 18:32 01/21/25 18:55 Ceftriaxone Sodium 1 Gm Vial IVPUSH 01/21/25 18:33 1 gm ONCE ONE Administration Sodium Chloride 1,000 mls @ 999 mls/hr 01/21/25 18:32 01/21/25 20:24 Ns IV 01/21/25 19:32 Infused .Q1H1M ONE Infusion Sodium Chloride 1,000 mls @ 999 mls/hr 01/21/25 19:16 01/21/25 21:38 Ns IV 01/21/25 20:16 Infused .Q1H1M ONE Infusion Metronidazole 500 mg in 100 mls @ 100 mls/hr 01/21/25 21:40 01/21/25 22:56 Flagyl IV 01/21/25 22:39 Infused ONCE ONE Infusion Sodium Chloride 1,000 mls @ 100 mls/hr 01/21/25 22:30 01/22/25 00:42 Ns IVCONT 0 mls/hr .Q10H TAL Infusion Ondansetron HCl 4 mg 01/21/25 17:23 01/21/25 17:35 Ondansetron Hcl 4 Mg/2 Ml Vial IVPUSH 01/21/25 17:24 4 mg ONCE ONE Administration Pantoprazole Sodium 40 mg 01/21/25 17:23 01/21/25 17:35 Pantoprazole Sodium 40 Mg/10 Ml Vial IVPUSH 01/21/25 17:24 40 mg ONCE ONE Administration Pantoprazole Sodium 40 mg 01/21/25 21:59 01/21/25 22:29 Pantoprazole Sodium 40 Mg/10 Ml Vial IVPUSH 01/21/25 22:00 40 mg ONCE ONE Administration Medical Decision Making Medical Decision Making [facility] Narrative: Patient with history of gastric ulcer nonbleeding history of gallstones and history of candidal esophagitis came here for coffee colored vomiting no vomiting noticed in the ER patient was given Protonix in the ER does have elevated WBC count and lactic acid level with no fever gallbladder has gallstones but no fluid around the gallbladder Shepard's sign negative will admit patient to hospitalist service. Patient did receive IV fluids more than 30 cc/kilogram also received IV antibiotics patient does have significant lactic acidosis not sure about the source of infection as the cause possible both type a and type B lactic acid level improved after IV hydration antibiotic given Differential Diagnosis Differential Diagnoses: The differential diagnosis associated with the presentation includes Bacteremia/lactic acidosis/cholecystitis/esophagitis/gastric ulcer Admission/Observation Consideration of admission/observation: Escalation of care including admission/observation considered Consult Healthcare Provider Management of the patient was discussed with: Hospitalist Lab Data MDM Lab Attestation statement: I reviewed the patient's lab results. 01/22/25 00:45 01/21/25 17:37 Labs: Lab Results 01/21/25 01/21/25 01/21/25 Range/Units 17:14 17:37 18:50 WBC 21.0 H (4.8-10.8) X10*3/uL RBC 3.39 L (4.20-5.50) X10*6/uL Hgb 11.3 L (12.0-16.0) g/dl Hct 34.1 L (37.0-47.0) % MCV 100.6 H (80.0-98.0) fL MCH 33.3 H (27.0-33.0) pg MCHC 33.1 (31.0-35.0) g/dl RDW 14.6 (11.0-16.0) % Plt Count 459 H (160-400) X10*3/uL MPV 11.7 (9.4-12.3) fL Immature Gran % (Auto) 0.7 H (0.0-0.4) % Neut % (Auto) 86.0 H (45-73) % Lymph % (Auto) 8.8 L (20-40) % Barry % (Auto) 4.2 (2-11) % Eos % (Auto) 0.0 (0-4) % Baso % (Auto) 0.3 (0-2) % Lymph # (Auto) 1.8 (1.2-4.9) X10*3/uL Barry # (Auto) 0.9 (0.1-1.2) X10*3/uL Eos # (Auto) 0.0 (0.0-0.4) X10*3/uL Baso # (Auto) 0.1 (0.0-0.2) X10*3/uL Abs Immat Gran (auto) 0.14 H (0.00-0.03) X10*3/uL Absolute Neuts (auto) 18.1 H (2.0-8.3) x10*3/uL Absolute Nucleated RBC 0.000 (0.0-0.012) X10*3/uL Nucleated RBC % (auto) 0.0 (0.0-0.2) /100WBC PT 12.7 H (10.9-12.4) SEC INR 1.1 (0.9-1.1) APTT 24.5 L (26.0-36.8) SEC Sodium 137 (135-145) mmol/L Potassium 4.3 (3.3-5.1) mmol/L Chloride 99 (96-108) mmol/L Carbon Dioxide 19 L (22-29) mmol/L Anion Gap 23 H (12-20) BUN 36 H (9-16) mg/dL Creatinine 0.85 (0.5-1.4) mg/dL Estim Creat Clear Calc 31.8 Estimated GFR > 60 POC Glucose 217 H (60-115) mg/dL Random Glucose 274 H (60-115) mg/dL Lactic Acid 7.3 H* (0.5-2.0) mmol/L Lactic Acid F/U @ 2Hr (0.5-2.0) mmol/L Calcium 9.4 (8.4-10.2) mg/dL Magnesium 2.2 (1.6-2.6) mg/dL Total Bilirubin 0.2 (0.0-1.0) mg/dL AST 27 (5-31) U/L ALT 11 (0-31) U/L Alkaline Phosphatase 57 (39-117) U/L Troponin I High Sens 12.0 (<3.5-17.0) ng/L Total Protein 7.3 (6.5-8.0) g/dL Albumin 3.5 (3.5-5.0) g/dL Lipase 17 (8-78) U/L Urine Color Urine Appearance Urine pH (5.0-9.0) Ur Specific [place] (1.005-1.025) Urine Protein (Neg-Trace) mg/dL Urine Glucose (UA) (Negative) mg/dL Urine Ketones (Negative) mg/dL Urine Blood (Negative) Urine Nitrite (Negative) Ur Leukocyte Esterase (Negative) Urine RBC (0-2) /HPF Urine WBC (0-5) /HPF Ur Squamous Epith Cells (0-2) /HPF Urine Bacteria (None Seen) Hyaline Casts (0-2) /LPF Granular Casts Blood Type O Positive Antibody Screen NEGATIVE 01/21/25 01/21/25 Range/Units 18:57 20:47 WBC (4.8-10.8) X10*3/uL RBC (4.20-5.50) X10*6/uL Hgb 9.3 L (12.0-16.0) g/dl Hct 27.4 L (37.0-47.0) % MCV (80.0-98.0) fL MCH (27.0-33.0) pg MCHC (31.0-35.0) g/dl RDW (11.0-16.0) % Plt Count (160-400) X10*3/uL MPV (9.4-12.3) fL Immature Gran % (Auto) (0.0-0.4) % Neut % (Auto) (45-73) % Lymph % (Auto) (20-40) % Barry % (Auto) (2-11) % Eos % (Auto) (0-4) % Baso % (Auto) (0-2) % Lymph # (Auto) (1.2-4.9) X10*3/uL Barry # (Auto) (0.1-1.2) X10*3/uL Eos # (Auto) (0.0-0.4) X10*3/uL Baso # (Auto) (0.0-0.2) X10*3/uL Abs Immat Gran (auto) (0.00-0.03) X10*3/uL Absolute Neuts (auto) (2.0-8.3) x10*3/uL Absolute Nucleated RBC (0.0-0.012) X10*3/uL Nucleated RBC % (auto) (0.0-0.2) /100WBC PT (10.9-12.4) SEC INR (0.9-1.1) APTT (26.0-36.8) SEC Sodium (135-145) mmol/L Potassium (3.3-5.1) mmol/L Chloride (96-108) mmol/L Carbon Dioxide (22-29) mmol/L Anion Gap (12-20) BUN (9-16) mg/dL Creatinine (0.5-1.4) mg/dL Estim Creat Clear Calc Estimated GFR POC Glucose (60-115) mg/dL Random Glucose (60-115) mg/dL Lactic Acid (0.5-2.0) mmol/L Lactic Acid F/U @ 2Hr 3.5 H* (0.5-2.0) mmol/L Calcium (8.4-10.2) mg/dL Magnesium (1.6-2.6) mg/dL Total Bilirubin (0.0-1.0) mg/dL AST (5-31) U/L ALT (0-31) U/L Alkaline Phosphatase (39-117) U/L Troponin I High Sens 13.8 (<3.5-17.0) ng/L Total Protein (6.5-8.0) g/dL Albumin (3.5-5.0) g/dL Lipase (8-78) U/L Urine Color Yellow Urine Appearance Cloudy Urine pH 8.5 (5.0-9.0) Ur Specific [place] 1.020 (1.005-1.025) Urine Protein Trace (Neg-Trace) mg/dL Urine Glucose (UA) Negative (Negative) mg/dL Urine Ketones Negative (Negative) mg/dL Urine Blood Negative (Negative) Urine Nitrite Negative (Negative) Ur Leukocyte Esterase Trace H (Negative) Urine RBC 0-2 (0-2) /HPF Urine WBC 0-5 (0-5) /HPF Ur Squamous Epith Cells 3-5 (0-2) /HPF Urine Bacteria None Seen (None Seen) Hyaline Casts 11-20 (0-2) /LPF Granular Casts Present Blood Type Antibody Screen Independent Interpretation I performed an independent interpretation of an: CT Scan Radiology Impression Discussion of test interpretation with radiology: I have reviewed the radiologist's reading. Radiologist Impression: Impression: Cholelithiasis with question of mild gallbladder wall thickening. If there is clinical concern for acute cholecystitis evaluate further with right upper quadrant ultrasound. Focus of air in the bladder could be secondary to recent instrumentation or emphysematous cystitis. Correlate with urinalysis. Fluid in the distal esophagus could be secondary to active vomiting or reflux. There is esophageal wall thickening which may indicate esophagitis. Gastric distention could be secondary to delayed emptying or recent ingestion. No dilation of the small bowel or colon to indicate obstruction or ileus. No definitive bowel wall thickening to indicate enteritis or colitis. This document has been electronically signed by: Sharee Walden MD on 01/21/2025 19:44:46 Critical Care Time Critical Care Time Critical Care Time: Yes Total Critical Care Time: 60 Attestation: The patient was critically ill with a high probability of imminent or life threatening deterioration. I spent greater than ?65??minutes of discontinuous time evaluating the patient,delivering critical care at the bedside, discussing and evaluating pertinent data with consultants. Critical care time does not include time spent performing separately billable procedures or teaching. Total time spent performing critical care was 60???minutes. Discharge Plan Discharge Clinical Impression: Lactic acidosis GIB (gastrointestinal bleeding) Qualifiers: GI bleed type/associated pathology: unspecified gastrointestinal hemorrhage type Qualified Code(s): K92.2 - Gastrointestinal hemorrhage, unspecified Anemia Qualifiers: Anemia type: unspecified type Qualified Code(s): D64.9 - Anemia, unspecified Conjunctivitis Qualifiers: Conjunctivitis type: other Laterality: unspecified laterality Qualified Code(s): H10.89 - Other conjunctivitis Patient Disposition: Admitted As Inpatient
[2025-01-21 17:17] VITALS: BP 118/60; PULSE 111; RESP 24; TEMP 36.4; O2SAT 96; BMI 22.0
[2025-01-21 17:18] LABS: Glucose, Whole Blood 217 mg/dL (60-115)
--- NOTE | 2025-01-21 17:30 | ECG_ITS ---
Test Reason : DIZZINESS Blood Pressure : */* mmHG Vent. Rate : 100 BPM Atrial Rate : 100 BPM P-R Int : 116 ms QRS Dur : 80 ms QT Int : 390 ms P-R-T Axes : 47 42 53 degrees QTcB Int : 503 ms Normal sinus rhythm Prolonged QT Abnormal ECG No previous ECGs available Referred By: Wander Echavarria Electronically Signed By: AUDREY SERRA MD
[2025-01-21] MEDS: Pantoprazole Sodium 40 MG/10 ML VIAL IVPUSH ×2 (17:35→22:29)
[2025-01-21] MEDS: ondansetron HCL 4 MG/2 ML VIAL IVPUSH ×2 (17:35→23:59)
[2025-01-21 17:45] LABS: MANUAL DIFF FLAG NO
[2025-01-21 17:47] LABS: Basophils Absolute Auto 0.1 X10*3/uL (0.0-0.2); Basophils Percent Auto 0.3 % (0-2); Hematocrit 34.1 % (37.0-47.0); Hemoglobin 11.3 g/dl (12.0-16.0); Imm Gran Abs Auto 0.14 X10*3/uL (0.00-0.03); Imm Gran Pct Auto 0.7 % (0.0-0.4); Lymphocytes Absolute Auto 1.8 X10*3/uL (1.2-4.9); Lymphocytes Percent Auto 8.8 % (20-40); Mean Corpuscular HGB Conc 33.1 g/dl (31.0-35.0); Mean Corpuscular Hemoglobin 33.3 pg (27.0-33.0); Mean Corpuscular Volume 100.6 fL (80.0-98.0); Mean Platelet Volume 11.7 fL (9.4-12.3); Monocytes Absolute Auto 0.9 X10*3/uL (0.1-1.2); Monocytes Percent Auto 4.2 % (2-11); Neutrophils Absolute Auto 18.1 x10*3/uL (2.0-8.3); Platelet Count 459 X10*3/uL (160-400); Red Blood Count 3.39 X10*6/uL (4.20-5.50); Red Cell Distribution Width 14.6 % (11.0-16.0)
[2025-01-21 17:55] LABS: INTERNATIONAL NORM RATIO 1.1 (0.9-1.1); Prothrombin Time 12.7 SEC (10.9-12.4)
[2025-01-21 17:56] VITALS: BP 100/52; PULSE 102; RESP 16; O2SAT 98
[2025-01-21 17:57] LABS: Partial Thromboplastin Time 24.5 SEC (26.0-36.8)
--- NOTE | 2025-01-21 18:12 | PC.NURSE ---
coffee ground emesis at home x2, noted brown/dark staining to tongue and outside lips. patient continues nausea/vomiting small amounts. MD aware.
[2025-01-21 18:13] LABS: Alanine Aminotransferase 11 U/L (0-31); Albumin Level 3.5 g/dL (3.5-5.0); Alkaline Phosphatase 57 U/L (39-117); Anion Gap 23 (12-20); Aspartate Amino Transferase 27 U/L (5-31); Bilirubin Total 0.2 mg/dL (0.0-1.0); Blood Urea Nitrogen 36 mg/dL (9-16); Calcium 9.4 mg/dL (8.4-10.2); Carbon Dioxide 19 mmol/L (22-29); Chloride 99 mmol/L (96-108); Creatinine Clr Calc Pharmacy 31.8; Estimated Glomerular Filt Rate > 60; Glucose Random 274 mg/dL (60-115); Potassium 4.3 mmol/L (3.3-5.1); Sodium 137 mmol/L (135-145); Total Protein 7.3 g/dL (6.5-8.0)
[2025-01-21 18:32] LABS: Lipase 17 U/L (8-78)
[2025-01-21] MEDS: 0.9 % Sodium Chloride 1,000 ML 999 ML IV ×2 (18:54→19:21)
[2025-01-21] MEDS: cefTRIAXone sodium 1 GM VIAL IVPUSH (18:55)
[2025-01-21 19:17] LABS: Lactic Acid 7.3 mmol/L (0.5-2.0)
[2025-01-21 19:21] LABS: Appearance Urine Cloudy; Color Urine Yellow; Glucose Urine UA Negative (Negative); Leukocyte Esterase Urine Trace (Negative); Nitrite Urine Negative (Negative); PH 8.5 (5.0-9.0); UMIC TRIGGER UACC YES; Urine Blood Negative (Negative); Urine Ketones Negative (Negative); Urine Protein Trace mg/dL (Neg-Trace)
[2025-01-21 19:34] LABS: Bacteria Urine None Seen (None Seen); Granular Casts Urine Present; RBC Urine 0-2 /HPF (0-2); WBC Urine 0-5 /HPF (0-5)
[2025-01-21 20:22] VITALS: BP 118/58; PULSE 92; RESP 17; O2SAT 97
[2025-01-21 20:53] LABS: Reflex Lactate? Lactic Acid Added
[2025-01-21 20:56] LABS: Hematocrit 27.4 % (37.0-47.0); Hemoglobin 9.3 g/dl (12.0-16.0)
[2025-01-21 21:16] LABS: Troponin-I High Sensitivity 13.8 ng/L (<3.5-17.0)
[2025-01-21 21:18] LABS: ~Lactic Acid-LAB USE ONLY 3.5 mmol/L (0.5-2.0)
[2025-01-21] MEDS: metroNIDAZOLE/NS 500 MG/100 ML PIGGYBACK 100 MG IV (21:51)
[2025-01-21 22:26] VITALS: BP 105/53; PULSE 83; RESP 16; O2SAT 97
--- NOTE | 2025-01-21 22:27 | P.HPHOSP_ITS ---
History of Present Illness Date of Service: 01/21/25 <[facility] - Last Filed: 01/21/25 23:29> Attending physician on admission: Karolina Bloom <[facility] - Last Filed: 01/21/25 23:29> Chief Complaint: abdominal pain <[facility] - Last Filed: 01/21/25 23:29> Patient is an 84-year-old female unable to provide PMSH,. HPI or ROS. After review of patient's chart patient has history of hyperlipidemia, hypertension, CVA, CAD on Plavix and statin, NSTEMI, constipation, use of chewing tobacco, dementia, Ellie esophagitis, and gallstones. This personal lines underwriter called patient's family member Robby who could only speak [place] and patient's granddaughter translated by phone but Robby was not willing to answer all questions needed for a thorough review of patient's past medical history. Family member instead said to review past visits in the computer to obtain informtion. Family did not inform this personal lines underwriter that patient was sent to the emergency room for increasing abdominal pain and coffee-ground emesis x2. Family unable to clarify if patient was having dark tarry stool or blood in her stool. Appetite has been varying. Family reports patient has been having issues with swallowing as well. Patient has also had issues with both eyes and has been treated for an infection. Patient is not considered legally blind but has very poor vision. Patient only ambulates minimally with complete supervision. Patient lives with a cousin and uncle (Robby) that care for her. This personal lines underwriter was able to confirm that patient is a full code per Robby. This personal lines underwriter did review interventions including CPR and ventilation. Unable to complete MOLST by phone. H&H upon admission was 11.3/34.1 and by 21:00 was down to 9.3 and 27.4. Coagulation studies note an INR of 1.1 and a PTT of 24.5. BNP indicates a metabolic acidosis with a anion gap of 23, stable renal function with a creatinine of 0.85 and a GFR of greater than 60, hyperglycemia with a blood sugar of 274, lactic acid of 7.3 and after repeat down to 3.5 after 1 L of fluid. LFTs within normal limits, T bili also normal. Troponin 13.8. Lipase 17. CT of the abdomen notes cholelithiasis with mild gallbladder wall thickening. Ultrasound recommended per radiologist. Also emphysematous cystitis but UA is negative for any correlating findings. There is fluid in the distal esophagus likely secondary to active vomiting or reflux. Esophagitis also noted. No obstruction or ileus. No evidence of colitis or enteritis. Patient does have an elevated lactic acid was afebrile but does have a leukocytosis of 21,000 and no bandemia. Patient was started on antibiotics empirically in the ED. Plan is to admit patient for suspected GI bleed, workup for cholecystitis and close monitoring. <Priyanka Kahnphilippe [facility] - Last Filed: 01/21/25 23:29> Review of Systems 2 Review of Systems: Yes Unobtainable due to mental status (pt non verbal not interacting, appears to be sleeping, urdu speaking) <[place] [facility] - Last Filed: 01/21/25 23:29> [facility] Cognitive capacity: Currently nonverbal, appears to be resting and is not interactive < Priyanka [place], [facility] - Last Filed: 01/21/25 23:29> Functional capacity: wheelchair bound <Priyanka [place], [facility] - Last Filed: 01/21/25 23:29> Patient : No <Priyanka Kahnphilippe [facility] - Last Filed: 01/21/25 23:29> Social History: Social History Unable to assess alcohol history related to: Unable to respond and Unknown Use of substances other than those prescribed or required for medical reasons: Unknown Advance Directives: No Advance Directives Information Provided: No Do you have a plan to hurt others: No Plan Patient : No <[place] [facility] - Last Filed: 01/21/25 23:29> Ebola Risk: Travel/Contact With Anyone From Affected Area/s: No <Priyanka Kahnphilippe [facility] - Last Filed: 01/21/25 23:29> Has Patient Experienced Ebola Symptoms: No <Priyanka [place] [facility] - Last Filed: 01/21/25 23:29> Meds Allergies/Adverse reactions: Allergies Allergy/AdvReac Type Severity Reaction Status Date / Time Unable to Assess Allergy Unverified 01/21/25 17:20 <[facility] - Last Filed: 01/21/25 23:29> Active Medications: Current Medications Acetaminophen (Acetaminophen 325 Mg Tablet) 650 mg PO Q6H PRN PRN Reason: Pain, Mild 1-3,fever,headache Metronidazole (Flagyl) 500 mg in 100 mls @ 100 mls/hr IV ONCE ONE Stop: 01/21/25 22:39 Last Admin: 01/21/25 21:51 Dose: 100 mls/hr Sodium Chloride (Ns) 1,000 mls @ 100 mls/hr IVCONT .Q10H TAL Piperacillin Sod/Tazobactam (Sod 3.375 gm/ Sodium Chloride) 50 mls @ 100 mls/hr IV Q6H TAL Ondansetron HCl (Ondansetron Hcl 4 Mg/2 Ml Vial) 4 mg IVPUSH Q8H PRN PRN Reason: Nausea and Vomiting Pantoprazole Sodium (Pantoprazole Sodium 40 Mg/10 Ml Vial) 40 mg IVPUSH BID@0630,1630 TAL Sodium Chloride (0.9 % Sodium Chloride Flush 3 Ml Syringe) 3 ml IVFLUSH QSHIFT TAL <[facility] - Last Filed: 01/21/25 23:29> Physical Exam 2 Vital Signs and Narrative: Vital Signs: Last Vital Signs Temp 97.6 F 01/21/25 17:17 Pulse 92 01/21/25 20:22 Resp 17 01/21/25 20:22 BP 118/58 L 01/21/25 20:22 Pulse Ox 97 01/21/25 20:22 O2 Del Method Room Air 01/21/25 20:22 BMI result Body Mass Index 22.0 <[facility] - Last Filed: 01/21/25 23:29> asleep, noninteractive, not waking up to examiner Neuro: unable to assess EYES: PERRLA ENT: B eyes are shut tight, minimal purulent drainage noted Cardiac: S1 S2 RRR, 3/6 diastolic murmur, no JVD, no edema in Lower ext Pulmonary: lungs diminished Abdominal: BS active in all 4 quadrants, active guarding with exam MSK: unable to assess : no bladder distension, periwick in place Extremities: no edema in lower extremities, PT and DP pulses palpable +2 Psych: unable to assess <[facility] - Last Filed: 01/21/25 23:29> Results Labs CBC and Chem 7: 01/21/25 20:47 01/21/25 17:37 <[facility] - Last Filed: 01/21/25 23:29> Labs: Laboratory Results - last 24 hr 01/21/25 01/21/25 01/21/25 17:14 17:37 18:50 MCV 100.6 H MCH 33.3 H MCHC 33.1 RDW 14.6 Plt Count 459 H MPV 11.7 Immature Gran % (Auto) 0.7 H Neut % (Auto) 86.0 H Lymph % (Auto) 8.8 L Pratt % (Auto) 4.2 Eos % (Auto) 0.0 Baso % (Auto) 0.3 Lymph # (Auto) 1.8 Pratt # (Auto) 0.9 Eos # (Auto) 0.0 Baso # (Auto) 0.1 Abs Immat Gran (auto) 0.14 H Absolute Neuts (auto) 18.1 H Absolute Nucleated RBC 0.000 Nucleated RBC % (auto) 0.0 PT 12.7 H INR 1.1 APTT 24.5 L Anion Gap 23 H Estim Creat Clear Calc 31.8 Estimated GFR > 60 POC Glucose 217 H Random Glucose 274 H Lactic Acid 7.3 H* Lactic Acid F/U @ 2Hr Calcium 9.4 Total Bilirubin 0.2 AST 27 ALT 11 Alkaline Phosphatase 57 Total Protein 7.3 Albumin 3.5 Lipase 17 Urine Color Urine Appearance Urine pH Ur Specific [place] Urine Protein Urine Glucose (UA) Urine Ketones Urine Blood Urine Nitrite Ur Leukocyte Esterase Urine RBC Urine WBC Ur Squamous Epith Cells Urine Bacteria Hyaline Casts Granular Casts Blood Type O Positive Antibody Screen NEGATIVE 01/21/25 01/21/25 18:57 20:47 MCV MCH MCHC RDW Plt Count MPV Immature Gran % (Auto) Neut % (Auto) Lymph % (Auto) Pratt % (Auto) Eos % (Auto) Baso % (Auto) Lymph # (Auto) Pratt # (Auto) Eos # (Auto) Baso # (Auto) Abs Immat Gran (auto) Absolute Neuts (auto) Absolute Nucleated RBC Nucleated RBC % (auto) PT INR APTT Anion Gap Estim Creat Clear Calc Estimated GFR POC Glucose Random Glucose Lactic Acid Lactic Acid F/U @ 2Hr 3.5 H* Calcium Total Bilirubin AST ALT Alkaline Phosphatase Total Protein Albumin Lipase Urine Color Yellow Urine Appearance Cloudy Urine pH 8.5 Ur Specific [place] 1.020 Urine Protein Trace Urine Glucose (UA) Negative Urine Ketones Negative Urine Blood Negative Urine Nitrite Negative Ur Leukocyte Esterase Trace H Urine RBC 0-2 Urine WBC 0-5 Ur Squamous Epith Cells 3-5 Urine Bacteria None Seen Hyaline Casts 11-20 Granular Casts Present Blood Type Antibody Screen <[facility] - Last Filed: 01/21/25 23:29> ECG Prior ECG tracings: not available for review <[facility] - Last Filed: 01/21/25 23:29> Imaging Radiologist's Impressions: CT ABD PELVIS Impression: Cholelithiasis with question of mild gallbladder wall thickening. If there is clinical concern for acute cholecystitis evaluate further with right upper quadrant ultrasound. Focus of air in the bladder could be secondary to recent instrumentation or emphysematous cystitis. Correlate with urinalysis. Fluid in the distal esophagus could be secondary to active vomiting or reflux. There is esophageal wall thickening which may indicate esophagitis. Gastric distention could be secondary to delayed emptying or recent ingestion. No dilation of the small bowel or colon to indicate obstruction or ileus. No definitive bowel wall thickening to indicate enteritis or colitis. CXR Findings: No cardiomegaly. Normal mediastinal contours. No pneumothorax; Skin folds on the right. No opacity. No pleural effusion. Normal upper abdomen. No acute fracture. 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 Impression: No acute findings. <[facility] - Last Filed: 01/21/25 23:29> Assessment and Plan (1) GIB (gastrointestinal bleeding): Qualifiers: GI bleed type/associated pathology: unspecified gastrointestinal hemorrhage type Qualified Code(s): K92.2 - Gastrointestinal hemorrhage, unspecified <[facility] - Last Filed: 01/21/25 23:29> Status: Acute <Priyanka [place], [facility] - Last Filed: 01/21/25 23:29> (2) Cholecystitis: Status: Acute <[place], [facility] - Last Filed: 01/21/25 23:29> (3) Anemia: Qualifiers: Anemia type: unspecified type Qualified Code(s): D64.9 - Anemia, unspecified <Priyanka [place], [facility] - Last Filed: 01/21/25 23:29> Status: Acute <[place], [facility] [employer] - Last Filed: 01/21/25 23:29> (4) Lactic acidosis: Status: Acute <[place], [facility] [employer] - Last Filed: 01/21/25 23:29> (5) Metabolic acidosis: Status: Acute <Priyanka [place], [facility] - Last Filed: 01/21/25 23:29> (6) Hyperglycemia: Status: Acute <Priyanka [place], [facility] - Last Filed: 01/21/25 23:29> (7) Conjunctivitis: Qualifiers: Conjunctivitis type: other Laterality: unspecified laterality Qualified Code(s): H10.89 - Other conjunctivitis <Priyanka [place], [facility] - Last Filed: 01/21/25 23:29> Status: Acute <Priyanka [place], [facility] [employer] - Last Filed: 01/21/25 23:29> (8) Emphysematous cystitis: Status: Acute <[place], [facility] [employer] - Last Filed: 01/21/25 23:29> (9) Systolic murmur: Status: Acute <[place], [facility] [employer] - Last Filed: 01/21/25 23:29> (10) Dysphagia: Qualifiers: Dysphagia type: oropharyngeal phase Qualified Code(s): R 13.12 - Dysphagia, oropharyngeal phase <Priyanka [place], [facility] [employer] - Last Filed: 01/21/25 23:29> Status: Acute <Priyanka [place], [facility] - Last Filed: 01/21/25 23:29> Patient is an 84-year-old female unable to provide PMSH,. HPI or ROS. After review of patient's chart patient has history of hyperlipidemia, hypertension, CVA, CAD on Plavix and statin, NSTEMI, constipation, use of chewing tobacco, dementia, Ellie esophagitis, and gallstones was brought in from home for complaints of abdominal pain and coffee-ground emesis x2 earlier today. Patient found to have suspected cholecystitis as well. Patient being brought in for GI bleed and cholecystitis workup. GI bleed/anemia/lactic acidosis/ dysphagia -trending H and H, next is due after midnight. Type and screen previously drawn. Transfuse for H&H less than 7 and 21 or if patient becomes hemodynamically unstable -GI consult ordered -unable to confirm patient's medications from home, patient maybe still on Plavix. Med rec pending. -Protonix 40 mg IV b.i.d., patient did receive 80 mg initially in the ED -NPO -IV fluids continue, rechecking lactic acid at midnight (7.3, 3.5...) -pain management -ST eval ordered, aspiration precautions Metabolic acidosis -we will add bicarb to patient's IV fluids for 1 bag only and recheck BMP in the a.m. Hyperglycemia -patient is currently NPO, blood glucose levels 217 than 274. -no reported history of diabetes. We will check A1c -sliding scale insulin for NPO status ordered Cholecystitis/ history of gallstones -ultrasound ordered for the a.m. 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 Patient had same murmur back in 2020 but unclear of the degree of the murmur. -No echo since 2020, we will check BNP, if elevated consider repeating echo if needed DVT prophylaxis: Held due to suspected GI bleed. We will not resume patient's Plavix PPI prophylaxis: IV Protonix 40 mg b.i.d. Med rec pending Patient requires at least 2 days of hospital admission for suspected GI bleed and workup for cholecystitis. This may involve transfusion of blood products and expert consultation with Gastroenterology and possibly surgery for the cholecystitis. <Priyanka Coleman, [employer] [employer] - Last Filed: 01/21/25 23:29> Patient is an 84-year-old female unable to provide PMSH,. HPI or ROS. After review of patient's chart patient has history of hyperlipidemia, hypertension, CVA, CAD on Plavix and statin, NSTEMI, constipation, use of chewing tobacco, dementia, Ellie esophagitis, and gallstones was brought in from home for complaints of abdominal pain and coffee-ground emesis x2 earlier today. Patient found to have suspected cholecystitis as well. Patient being brought in for GI bleed and cholecystitis workup. GI bleed/anemia/lactic acidosis/ dysphagia -trending H and H, next is due after midnight. Type and screen previously drawn. Transfuse for H&H less than 7 and 21 or if patient becomes hemodynamically unstable -GI consult ordered -unable to confirm patient's medications from home, patient maybe still on Plavix. Med rec pending. -Protonix 40 mg IV b.i.d., patient did receive 80 mg initially in the ED -NPO -IV fluids continue, rechecking lactic acid at midnight (7.3, 3.5...) -pain management -ST eval ordered, aspiration precautions Hyperglycemia -patient is currently NPO, blood glucose levels 217 than 274. -no reported history of diabetes. We will check A1c -sliding scale insulin for NPO status ordered Cholecystitis/ history of gallstones -CT with GB thickening -empiric zosyn -ultrasound ordered for the a.m. 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 Patient had same murmur back in 2020 but unclear of the degree of the murmur. -No echo since 2020, we will check BNP, if elevated consider repeating echo if needed DVT prophylaxis: Held due to suspected GI bleed. We will not resume patient's Plavix PPI prophylaxis: IV Protonix 40 mg b.i.d. Med rec pending Patient requires at least 2 days of hospital admission for suspected GI bleed and workup for cholecystitis. This may involve transfusion of blood products and expert consultation with Gastroenterology and possibly surgery for the cholecystitis. <Karolina Bloom MD - Last Filed: 01/21/25 23:51> Total time managing care of this patient today: 45 minutes. <Priyanka Coleman [facility] - Last Filed: 01/21/25 23:29> Quality Stroke Does the patient have a stroke diagnosis?: No <Priyanka Coleman [facility] - Last Filed: 01/21/25 23:29> Reason for No Anti-thrombotic by Day Two: Contraindicated <Priyanka Coleman [facility] - Last Filed: 01/21/25 23:29> VTE Prior VTE?: No <Priyanka Coleman [facility] - Last Filed: 01/21/25 23:29> VTE Risk Level:: Medical - moderate - high <Priyanka Coleman [facility] - Last Filed: 01/21/25 23:29> VTE Device Contraindication: N/A - Device Ordered <Priyanka [place] [facility] - Last Filed: 01/21/25 23:29> VTE Drug Contraindication: Treatment Not Indicated <Priyanka Coleman [facility] - Last Filed: 01/21/25 23:29>
[2025-01-21] MEDS: Piperacillin Sodium/Tazobactam 3.375 GM in 0.9 % Sodium Chloride 50 ML IV (22:37)
[2025-01-21] MEDS: 0.9 % Sodium Chloride 1,000 ML 100 ML IVCONT (22:38)
[2025-01-21 22:54] LABS: Reflex Lactate? 2 Y
[2025-01-21 23:37] VITALS: BP 103/52; PULSE 89; RESP 16; TEMP 36.6; O2SAT 98
[2025-01-21 23:38] LABS: Glucose, Whole Blood 134 mg/dL (60-115)
[2025-01-21 23:43] LABS: ~Lactic Acid-LAB USE ONLY 2.1 mmol/L (0.5-2.0)
--- NOTE | 2025-01-21 23:45 | MHC.EDTECH ---
This tech took over care of pt at 2300,rounded and introduced self to pt,vitals taken,rectal temp taken and is 97.9, assisted provider with rectal exam,occult stool obtained and sent to lab,belongings list completed and copy placed in chart,patient has a bed assigned at this time,will transport pt when report is given,call diggs in reach
[2025-01-22] VITALS (10 sets, daily range): BP systolic 85–122; BP diastolic 46–56; PULSE 61–80; RESP 14–18; TEMP 36.1–37.1; O2SAT 95–99; BMI 19.6
[2025-01-22 00:03] LABS: Magnesium 2.2 mg/dL (1.6-2.6)
[2025-01-22] MEDS: Lactated Ringers 1,000 ML 150 ML IVCONT (00:06)
[2025-01-22 00:12] LABS: OBS Int Ctl Valid YES; OBS1 NEGATIVE (NEGATIVE)
[2025-01-22 00:52] LABS: Hematocrit 27.7 % (37.0-47.0); Hemoglobin 9.3 g/dl (12.0-16.0)
[2025-01-22 01:15] LABS: Lactic Acid 2.4 mmol/L (0.5-2.0)
[2025-01-22 02:49] LABS: Reflex Lactate? Lactic Acid Added
[2025-01-22 02:54] LABS: Estimated Average Glucose 100 mg/dL; Hemoglobin A1c % 5.1 % (<6.0); Total Hemoglobin (HGBA1C) 3007.2349 umol/L
[2025-01-22 03:28] LABS: ~Lactic Acid-LAB USE ONLY 1.9 mmol/L (0.5-2.0)
[2025-01-22] MEDS: Piperacillin Sodium/Tazobactam 3.375 GM in 0.9 % Sodium Chloride 50 ML IV ×2 (04:33→11:00)
[2025-01-22 05:19] LABS: Glucose, Whole Blood 101 mg/dL (60-115)
[2025-01-22] MEDS: Pantoprazole Sodium 40 MG/10 ML VIAL IVPUSH ×2 (05:55→15:39)
[2025-01-22 07:33] LABS: MANUAL DIFF FLAG NO
[2025-01-22 07:43] LABS: Basophils Percent Auto 0.3 % (0-2); Eosinophils Absolute Auto 0.1 X10*3/uL (0.0-0.4); Eosinophils Percent Auto 0.5 % (0-4); Hematocrit 23.4 % (37.0-47.0); Hemoglobin 7.6 g/dl (12.0-16.0); Imm Gran Abs Auto 0.04 X10*3/uL (0.00-0.03); Imm Gran Pct Auto 0.3 % (0.0-0.4); Lymphocytes Absolute Auto 4.3 X10*3/uL (1.2-4.9); Lymphocytes Percent Auto 33.4 % (20-40); Mean Corpuscular HGB Conc 32.5 g/dl (31.0-35.0); Mean Corpuscular Hemoglobin 33.6 pg (27.0-33.0); Mean Corpuscular Volume 103.5 fL (80.0-98.0); Monocytes Absolute Auto 1.1 X10*3/uL (0.1-1.2); Monocytes Percent Auto 8.7 % (2-11); Neutrophils Absolute Auto 7.2 x10*3/uL (2.0-8.3); Neutrophils Percent Auto 56.8 % (45-73); Platelet Count 296 X10*3/uL (160-400); Red Blood Count 2.26 X10*6/uL (4.20-5.50); White Blood Count 12.7 X10*3/uL (4.8-10.8)
[2025-01-22] MEDS: 0.9 % Sodium Chloride Flush 3 ML SYRINGE IVFLUSH ×2 (07:53→11:26)
[2025-01-22 08:03] LABS: Alanine Aminotransferase 6 U/L (0-31); Albumin Level 2.5 g/dL (3.5-5.0); Alkaline Phosphatase 39 U/L (39-117); Anion Gap 10 (12-20); Aspartate Amino Transferase 21 U/L (5-31); Bilirubin Total 0.2 mg/dL (0.0-1.0); Blood Urea Nitrogen 28 mg/dL (9-16); Calcium 8.1 mg/dL (8.4-10.2); Carbon Dioxide 19 mmol/L (22-29); Chloride 114 mmol/L (96-108); Estimated Glomerular Filt Rate > 60; Glucose Random 102 mg/dL (60-115); Potassium 4.5 mmol/L (3.3-5.1); Sodium 138 mmol/L (135-145); Total Protein 5.1 g/dL (6.5-8.0)
[2025-01-22 08:22] LABS: C Reactive Protein 0.56 mg/dL (< or = 0.50)
--- NOTE | 2025-01-22 09:00 | PHA.MEDREC ---
Addendum entered by Kandy Schwartz RPh 01/22/25 09:16: Reviewed by [facility] Original Note: Pharmacy Consult ? Medication Reconciliation Pharmacy has completed the medication reconciliation. Unable to obtain history directly from the patient due to documented history of dementia. According to the previous notes, the family is noted to be poor historians. Utilized claims to confirm med list.
[2025-01-22] MEDS: Erythromycin Base 0.5% Oph Oin 1 GM TUBE 1 CM EYE-BOTH ×2 (09:04→20:35)
[2025-01-22 10:49] LABS: Glucose, Whole Blood 95 mg/dL (60-115)
--- NOTE | 2025-01-22 11:02 | MHC.SLORD ---
Speech Language Pathology Order Status: HORSE TREKKING GUIDE consult received. Per RN, pt need to be seen by GI prior to HORSE TREKKING GUIDE. Therefore, pt to be seen for swallow evaluation tmw AM.
[2025-01-22] MEDS: Lactated Ringers 1,000 ML 80 ML IVCONT (11:26)
[2025-01-22 12:13] LABS: Hematocrit 22.6 % (37.0-47.0); Hemoglobin 7.4 g/dl (12.0-16.0)
--- NOTE | 2025-01-22 12:33 | MHC.CM.PN ---
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
--- NOTE | 2025-01-22 12:33 | HO.PM.IMPN ---
Subjective Subjective Date of Service: 01/22/25 Interval History: per RN no further vomiting and no melena unablte to obtain ROS due to advanced dementia Review of Systems Review of Systems: Yes Unobtainable due to mental status Physical Exam Vital Signs: Vital Signs: Last Vital Signs Temp 98.0 F 01/22/25 10:59 Pulse 67 01/22/25 10:59 Resp 18 01/22/25 10:59 BP 92/54 L 01/22/25 10:59 Pulse Ox 98 01/22/25 10:59 O2 Del Method Room Air 01/22/25 10:59 BMI result Body Mass Index 19.6 Gen: lethargic, nonverbal, malnourisehd HEENT: sclera anicteric, moist mucus membranes Neck: supple Lungs: clear to auscultation bilaterally Heart: regular rate and rhythm, 3/6 murmur Abd: soft, non-tender, non-distended Ext: no edema Skin: warm/well-perfused Neuro: lethargic Psych: impaired insight Objective Data Active Medications Acetaminophen (Acetaminophen 325 Mg Tablet) 650 mg PO Q6H PRN PRN Reason: Pain, Mild 1-3,fever,headache Amitriptyline HCl (Amitriptyline Hcl 10 Mg Tablet) 10 mg PO BEDTIME [facility] Atorvastatin Calcium (Atorvastatin Calcium 40 Mg Tablet) 40 mg PO DAILY [facility] Calcium Carbonate (Calcium Oyster Shell Elemental 500 Mg Tablet) 1 mg PO BID [facility] Last Admin: 01/22/25 11:31 Dose: Not Given Documented By: KAYLEEN Non-Admin Reason: NPO Dextrose (Dextrose 50 % 25 Gm/50 Ml Syringe) 25 gm IVPUSH Q15M PRN; Protocol PRN Reason: per Hypoglycemia Standing Ord. Erythromycin (Erythromycin Base 0.5% Oph Oin 1 Gm Tube) 1 cm EYE-BOTH BID [facility] Last Admin: 01/22/25 09:04 Dose: 1 cm Documented By: KAYLEEN Glucose (Glucose Gel 15 Gm Gel..Gram.) 15 gm PO Q15M PRN; Protocol PRN Reason: per Hypoglycemia Standing Ord. Hydromorphone HCl (Hydromorphone Hcl 0.5 Mg/0.5 Ml Syringe) 0.5 mg IVPUSH Q4H PRN; Protocol PRN Reason: Pain, Severe (Pain Scale 7-10) Piperacillin Sod/Tazobactam (Sod 3.375 gm/ Sodium Chloride) 50 mls @ 100 mls/hr IV Q6H [facility] Last Infusion: 01/22/25 11:27 Dose: Infused Documented By: KAYLEEN Lactated Ringer's (Lr) 1,000 mls @ 80 mls/hr IVCONT .[id number] [facility] Last Admin: 01/22/25 11:26 Dose: 80 mls/hr Documented By: KAYLEEN Magnesium Hydroxide (Milk Of Magnesia 30 Ml Oral.Susp) 5 ml PO BID [facility] Melatonin (Melatonin 3 Mg Tablet) 6 mg PO BEDTIME PRN PRN Reason: insomnia Metoprolol Succinate (Metoprolol Succinate Er 12.5 Mg Halftab.Er.24h) 12.5 mg PO DAILY [facility]; Protocol Mirtazapine (Mirtazapine 30 Mg Tablet) 30 mg PO BEDTIME [facility] Multivitamins/Vitamin C (Multivitamin Tablet) 1 tab PO DAILY [facility] Ondansetron HCl (Ondansetron Hcl 4 Mg/2 Ml Vial) 4 mg IVPUSH Q8H PRN PRN Reason: Nausea and Vomiting Last Admin: 01/21/25 23:59 Dose: 4 mg Documented By: MEENA Pantoprazole Sodium (Pantoprazole Sodium 40 Mg/10 Ml Vial) 40 mg IVPUSH BID@0630,1630 [facility] Last Admin: 01/22/25 05:55 Dose: 40 mg Documented By: MARCEL Sertraline HCl (Sertraline Hcl 25 Mg Tablet) 25 mg PO DAILY [facility] Sodium Chloride (0.9 % Sodium Chloride Flush 3 Ml Syringe) 3 ml IVFLUSH QSHIFT [facility] Last Admin: 01/22/25 11:26 Dose: 3 ml Documented By: KAYLEEN Labs 01/22/25 12:08 01/22/25 06:35 Labs: Laboratory Results - last 24 hr 01/21/25 01/21/25 01/21/25 17:14 17:37 18:50 MCV 100.6 H MCH 33.3 H MCHC 33.1 RDW 14.6 Plt Count 459 H MPV 11.7 Immature Gran % (Auto) 0.7 H Neut % (Auto) 86.0 H Lymph % (Auto) 8.8 L [place] % (Auto) 4.2 Eos % (Auto) 0.0 Baso % (Auto) 0.3 Lymph # (Auto) 1.8 [place]verse # (Auto) 0.9 Eos # (Auto) 0.0 Baso # (Auto) 0.1 Abs Immat Gran (auto) 0.14 H Absolute Neuts (auto) 18.1 H Absolute Nucleated RBC 0.000 Nucleated RBC % (auto) 0.0 PT 12.7 H INR 1.1 APTT 24.5 L Anion Gap 23 H Estim Creat Clear Calc 31.8 Estimated GFR > 60 POC Glucose 217 H Random Glucose 274 H Estimat Average Glucose 100 Hemoglobin A1c % 5.1 Lactic Acid 7.3 H* Lactic Acid F/U @ 2Hr Lactic Acid F/U @ 4Hr Calcium 9.4 Magnesium 2.2 Total Bilirubin 0.2 AST 27 ALT 11 Alkaline Phosphatase 57 C-Reactive Protein Total Protein 7.3 Albumin 3.5 Lipase 17 Urine Color Urine Appearance Urine pH Ur Specific Coldiron Urine Protein Urine Glucose (UA) Urine Ketones Urine Blood Urine Nitrite Ur Leukocyte Esterase Urine RBC Urine WBC Ur Squamous Epith Cells Urine Bacteria Hyaline Casts Granular Casts Stool Occult Blood Blood Type O Positive Antibody Screen NEGATIVE 01/21/25 01/21/25 01/21/25 18:57 20:47 23:05 MCV MCH MCHC RDW Plt Count MPV Immature Gran % (Auto) Neut % (Auto) Lymph % (Auto) [place]verse % (Auto) Eos % (Auto) Baso % (Auto) Lymph # (Auto) [place] # (Auto) Eos # (Auto) Baso # (Auto) Abs Immat Gran (auto) Absolute Neuts (auto) Absolute Nucleated RBC Nucleated RBC % (auto) PT INR APTT Anion Gap Estim Creat Clear Calc Estimated GFR POC Glucose Random Glucose Estimat Average Glucose Hemoglobin A1c % Lactic Acid Lactic Acid F/U @ 2Hr 3.5 H* Lactic Acid F/U @ 4Hr 2.1 H* Calcium Magnesium Total Bilirubin AST ALT Alkaline Phosphatase C-Reactive Protein Total Protein Albumin Lipase Urine Color Yellow Urine Appearance Cloudy Urine pH 8.5 Ur Specific Coldiron 1.020 Urine Protein Trace Urine Glucose (UA) Negative Urine Ketones Negative Urine Blood Negative Urine Nitrite Negative Ur Leukocyte Esterase Trace H Urine RBC 0-2 Urine WBC 0-5 Ur Squamous Epith Cells 3-5 Urine Bacteria None Seen Hyaline Casts 11-20 Granular Casts Present Stool Occult Blood Blood Type Antibody Screen 01/21/25 01/21/25 01/22/25 23:29 23:51 00:45 MCV MCH MCHC RDW Plt Count MPV Immature Gran % (Auto) Neut % (Auto) Lymph % (Auto) [place]verse % (Auto) Eos % (Auto) Baso % (Auto) Lymph # (Auto) [place] # (Auto) Eos # (Auto) Baso # (Auto) Abs Immat Gran (auto) Absolute Neuts (auto) Absolute Nucleated RBC Nucleated RBC % (auto) PT INR APTT Anion Gap Estim Creat Clear Calc Estimated GFR POC Glucose 134 H Random Glucose Estimat Average Glucose Hemoglobin A1c % Lactic Acid 2.4 H* Lactic Acid F/U @ 2Hr Lactic Acid F/U @ 4Hr Calcium Magnesium Total Bilirubin AST ALT Alkaline Phosphatase C-Reactive Protein Total Protein Albumin Lipase Urine Color Urine Appearance Urine pH Ur Specific Cold[place] Urine Protein Urine Glucose (UA) Urine Ketones Urine Blood Urine Nitrite Ur Leukocyte Esterase Urine RBC Urine WBC Ur Squamous Epith Cells Urine Bacteria Hyaline Casts Granular Casts Stool Occult Blood NEGATIVE Blood Type Antibody Screen 01/22/25 01/22/25 01/22/25 03:08 05:15 06:35 MCV 103.5 H MCH 33.6 H MCHC 32.5 RDW 15.0 Plt Count 296 D MPV 12.0 Immature Gran % (Auto) 0.3 Neut % (Auto) 56.8 Lymph % (Auto) 33.4 Converse % (Auto) 8.7 Eos % (Auto) 0.5 Baso % (Auto) 0.3 Lymph # (Auto) 4.3 [place] # (Auto) 1.1 Eos # (Auto) 0.1 Baso # (Auto) 0.0 Abs Immat Gran (auto) 0.04 H Absolute Neuts (auto) 7.2 Absolute Nucleated RBC 0.000 Nucleated RBC % (auto) 0.0 PT INR APTT Anion Gap 10 L Estim Creat Clear Calc 51.0 Estimated GFR > 60 POC Glucose 101 Random Glucose 102 Estimat Average Glucose Hemoglobin A1c % Lactic Acid Lactic Acid F/U @ 2Hr 1.9 Lactic Acid F/U @ 4Hr Calcium 8.1 L D Magnesium Total Bilirubin 0.2 AST 21 ALT 6 Alkaline Phosphatase 39 C-Reactive Protein 0.56 H Total Protein 5.1 L Albumin 2.5 L Lipase Urine Color Urine Appearance Urine pH Ur Specific Coldiron Urine Protein Urine Glucose (UA) Urine Ketones Urine Blood Urine Nitrite Ur Leukocyte Esterase Urine RBC Urine WBC Ur Squamous Epith Cells Urine Bacteria Hyaline Casts Granular Casts Stool Occult Blood Blood Type Antibody Screen 01/22/25 10:47 MCV MCH MCHC RDW Plt Count MPV Immature Gran % (Auto) Neut % (Auto) Lymph % (Auto) [place] % (Auto) Eos % (Auto) Baso % (Auto) Lymph # (Auto) [place] # (Auto) Eos # (Auto) Baso # (Auto) Abs Immat Gran (auto) Absolute Neuts (auto) Absolute Nucleated RBC Nucleated RBC % (auto) PT INR APTT Anion Gap Estim Creat Clear Calc Estimated GFR POC Glucose 95 Random Glucose Estimat Average Glucose Hemoglobin A1c % Lactic Acid Lactic Acid F/U @ 2Hr Lactic Acid F/U @ 4Hr Calcium Magnesium Total Bilirubin AST ALT Alkaline Phosphatase C-Reactive Protein Total Protein Albumin Lipase Urine Color Urine Appearance Urine pH Ur Specific Coldiron Urine Protein Urine Glucose (UA) Urine Ketones Urine Blood Urine Nitrite Ur Leukocyte Esterase Urine RBC Urine WBC Ur Squamous Epith Cells Urine Bacteria Hyaline Casts Granular Casts Stool Occult Blood Blood Type Antibody Screen US abdomen 01/22/25 1. Numerous shadowing stones within the gallbladder neck. Shipping Support reports a negative sonographic Shepard's sign. No pericholecystic fluid. Findings suggest cholelithiasis without acute cholecystitis. 2. Top-normal common duct at 6 mm. 3. If there is continued concern for acute cholecystitis consider HIDA scan or MRCP. Assessment and Plan (1) GIB (gastrointestinal bleeding): Status: Acute Assessment and Plan: d2 for 84yo F with HLD, HTN, CVA, CAD on Plavix and statin, dementia, Ellie glabrata esophagitis recently treated with caspofungin presenting with abdominal pain and coffee-ground emesis, found to be anemic though FOBT negative acute blood loss anemia due to GIB - suspect upper, NPO, will transfuse 1u pRBCs and monitor H+H, GI consult pending, hold DAPT cholelithiasis - not cholecystitis on US; will d/c piperacillin-tazobactam CAD hx CVA - hold DAPT, give metoprolol succinate + atorvastatin + amitriptylline moderate protein-calorie malnutrition - Nutrition consult, supplements when taking POs air in bladder - suspect due to catheterization, UA negative for infection arguing against empysematous cystitis conjunctivitis - erythromycin ointment HTN - metoprolol succinate dementia - sertraline + mirtazapine + amitriptyline VTE ppx - SCDs dispo - TBD In my clinical judgment, the patient requires continued inpatient hospitalization for the following reasons: GIB Total time managing care of this patient today: 45 minutes. Quality Stroke Does the patient have a stroke diagnosis?: No Reason for No Anti-thrombotic by Day Two: Contraindicated VTE Prior VTE?: No VTE Risk Level:: Medical - moderate - high VTE Device Contraindication: N/A - Device Ordered VTE Drug Contraindication: Treatment Not Indicated
--- NOTE | 2025-01-22 13:59 | CONS_ITS ---
DATE OF SERVICE: 01/22/2025 REFERRING PHYSICIAN: Priyanka Coleman NP REASON FOR CONSULTATION: History of coffee-ground emesis. HISTORY OF PRESENT ILLNESS: The patient is a pleasant, confused 84-year-old [place]-speaking woman. The history is obtained from the chart. She was brought to the emergency department with a history of having vomited coffee-ground emesis in the setting of recently being treated for UTI. There was also a recent diagnosis of esophageal candidiasis in October according to records, but the etiology of this is not further specified. The patient had laboratory work in the emergency department showing a hematocrit of 34, and repeat monitoring has shown a drop in her hematocrit to 22 in the setting of being transfused with over 3-1/2 L of IV fluid. There has been no reported bleeding since admission. The history of dysphagia is also listed in the chart, but further details on this are not documented. The patient has been admitted and there has been no further bleeding per nursing. She has been n.p.o. without any coffee-ground emesis. She has not required blood transfusion. PAST MEDICAL HISTORY: 1. Hypertension. 2. Hyperlipidemia. 3. COPD. 4. Coronary artery disease with history of Plavix usage. 5. NSTEMI. 6. Constipation. 7. Dementia. 8. Ellie esophagitis. 9. Gallstones. CURRENT MEDICATIONS: Her current medication list is reviewed in the chart. ALLERGIES: THERE ARE NONE REPORTED. FAMILY HISTORY: This is reviewed in the electronic medical record. SOCIAL HISTORY: There is a history of tobacco chewing. It is unknown whether she is to still doing this at the time of admission. No substance use is reported. REVIEW OF SYSTEMS: This is not obtainable. PHYSICAL EXAMINATION: GENERAL: Shows a pleasant elderly [place]an-speaking woman. SKIN: Anicteric. HEENT: Shows no scleral icterus. VITAL SIGNS: Reviewed. LUNGS: Clear. HEART: Shows regular rate and rhythm. S1, S2. No murmur. ABDOMEN: Soft and nontender. Bowel sounds are present. No organomegaly is noted. EXTREMITIES: Without edema. LABORATORY DATA: Including her CT scan reviewed. There is fluid in the distal esophagus with esophageal wall thickening suggestive of esophagitis. IMPRESSION: Coffee-ground emesis. This appears consistent with esophagitis, possibly also [place]-Browning tear from vomiting. At this time, she shows no signs of active bleeding. I believe her drop in hematocrit is entirely related to IV fluids that were administered as, if she had dropped from GI bleeding, she should have had hematemesis, melena, or both. I would recommend an endoscopy at some point if the family wishes for aggressive intervention. This can be arranged for Thursday. In the interim, I agree with treating her with a proton pump inhibitor. I would recommend starting clear liquids and seeing how she does. She has been scheduled for a speech pathology evaluation. I agree with obtaining this. Thanks for asking me to see her. I will follow her in the hospital with you. MD ANDREINA Rivas/AMAURI / [phone] MTDJeff
[2025-01-22 16:56] LABS: Glucose, Whole Blood 100 mg/dL (60-115)
[2025-01-22] MEDS: Milk of Magnesia 30 ML ORAL.SUSP 5 ML PO (20:34)
--- NOTE | 2025-01-22 22:45 | PC.NURSE ---
patient declined taking her remeron, elavil & os-anshul tablets this evening. I attempted 3 times but she still would not take them. she keeps saying deshaun, deshaun meaning tomorrow.
[2025-01-23] MEDS: 0.9 % Sodium Chloride Flush 3 ML SYRINGE IVFLUSH ×3 (00:17→15:31)
[2025-01-23 01:55] LABS: Glucose, Whole Blood 81 mg/dL (60-115)
[2025-01-23] MEDS: Lactated Ringers 1,000 ML 80 ML IVCONT ×2 (02:16→15:31)
[2025-01-23 04:00] VITALS: BP 102/51; PULSE 78; RESP 17; TEMP 36.8; O2SAT 99
[2025-01-23] MEDS: Pantoprazole Sodium 40 MG/10 ML VIAL IVPUSH ×2 (05:55→15:31)
[2025-01-23 07:07] VITALS: BP 109/56; PULSE 70; RESP 18; TEMP 36.9; O2SAT 98
[2025-01-23 08:29] LABS: Glucose, Whole Blood 75 mg/dL (60-115)
--- NOTE | 2025-01-23 09:18 | PM.GIPN ---
Subjective Subjective Date of Service: 01/23/25 Interval History: no bleeding per RN pt denies abd pain Critical Care Time (minutes): 0 Physical Exam Vital Signs: Vital Signs: Last Vital Signs Temp 98.4 F 01/23/25 07:07 Pulse 70 01/23/25 07:07 Resp 18 01/23/25 07:07 BP 109/56 L 01/23/25 07:07 Pulse Ox 98 01/23/25 07:07 O2 Del Method Room Air 01/23/25 07:07 BMI result Body Mass Index 19.6 GI: Other: abdomen is soft and nontender extremities are without edema Objective Data Labs 01/22/25 12:08 01/22/25 06:35 Labs: Laboratory Results - last 24 hr 01/21/25 01/22/25 01/22/25 17:37 10:47 12:08 Hgb 7.4 L Hct 22.6 L POC Glucose 95 Blood Type O Positive Antibody Screen NEGATIVE Crossmatch See Detail 01/22/25 01/23/25 01/23/25 16:51 01:50 07:58 Hgb Hct POC Glucose 100 81 75 Blood Type Antibody Screen Crossmatch Microbiology Microbiology Results: Microbiology 01/21/25 18:50 Blood - Venous Blood Culture - Preliminary No growth after 24 hours. 01/21/25 18:50 Blood - Venous Blood Culture - Preliminary No growth after 24 hours. Procedures Date of Service Date of Service: 01/23/25 Progress Note: A&P Assessment and plan (1) Dysphagia: Status: Acute Assessment and Plan: RN reports duplicate MRN in EMR records reviewed EGD planned for tomorrow with [facility] for further evaluation of coffee ground emesis, dysphagia and h/o aaron esophagitis. Dr Hoyt indicates family wishes to proceed. Anemia is likely dilutional, as no gi bleeding since admission. Time Spent With Patient Time: Total time managing care of this patient today ____ minutes. Quality Stroke Does the patient have a stroke diagnosis?: No Reason for No Anti-thrombotic by Day Two: Contraindicated VTE Prior VTE?: No VTE Risk Level:: Medical - moderate - high VTE Device Contraindication: N/A - Device Ordered VTE Drug Contraindication: Treatment Not Indicated
[2025-01-23] MEDS: Milk of Magnesia 30 ML ORAL.SUSP 5 ML PO (09:25)
[2025-01-23] MEDS: Atorvastatin Calcium 40 MG TABLET PO (09:25)
[2025-01-23] MEDS: Multivitamin TABLET 1 TAB PO (09:26)
[2025-01-23] MEDS: Calcium Oyster Shell Elemental 500 MG TABLET PO (09:26)
[2025-01-23] MEDS: Sertraline HCL 25 MG TABLET PO (09:26)
[2025-01-23] MEDS: Metoprolol Succinate ER 12.5 MG HALFTAB.ER.24H PO (09:26)
[2025-01-23] MEDS: Erythromycin Base 0.5% Oph Oin 1 GM TUBE 1 CM EYE-BOTH (09:54)
[2025-01-23 09:57] LABS: Hematocrit 32.4 % (37.0-47.0); Hemoglobin 10.8 g/dl (12.0-16.0); Mean Corpuscular HGB Conc 33.3 g/dl (31.0-35.0); Mean Corpuscular Volume 96.1 fL (80.0-98.0); Platelet Count 203 X10*3/uL (160-400); Red Blood Count 3.37 X10*6/uL (4.20-5.50); Red Cell Distribution Width 17.7 % (11.0-16.0); White Blood Count 8.1 X10*3/uL (4.8-10.8)
[2025-01-23 10:11] LABS: Anion Gap 10 (12-20); Blood Urea Nitrogen 8 mg/dL (9-16); Calcium 8.6 mg/dL (8.4-10.2); Carbon Dioxide 22 mmol/L (22-29); Chloride 107 mmol/L (96-108); Creatinine Clr Calc Pharmacy 45.1; Estimated Glomerular Filt Rate > 60; Glucose Random 84 mg/dL (60-115); Potassium 3.9 mmol/L (3.3-5.1); Sodium 135 mmol/L (135-145)
[2025-01-23 11:11] VITALS: BP 127/58; PULSE 75; RESP 18; TEMP 37; O2SAT 97
--- NOTE | 2025-01-23 11:51 | P.PNIM_ITS ---
Subjective Subjective Date of Service: 01/23/25 Interval History: Hb improved unable to obtain ROS due to severe dementia Review of Systems Review of Systems: Yes Unobtainable due to mental status Physical Exam 2 Vital Signs: Vital Signs: Last Vital Signs Temp 98.6 F 01/23/25 11:11 Pulse 75 01/23/25 11:11 Resp 18 01/23/25 11:11 BP 127/58 L 01/23/25 11:11 Pulse Ox 97 01/23/25 11:11 O2 Del Method Room Air 01/23/25 11:11 BMI result Body Mass Index 19.6 Gen: lethargic, nonverbal, malnourished HEENT: sclera anicteric, moist mucus membranes Neck: supple Lungs: clear to auscultation bilaterally Heart: regular rate and rhythm, 3/6 murmur Abd: soft, non-tender, non-distended Ext: no edema Skin: warm/well-perfused Neuro: lethargic Psych: impaired insight Objective Data Active Medications Acetaminophen (Acetaminophen 325 Mg Tablet) 650 mg PO Q6H PRN PRN Reason: Pain, Mild 1-3,fever,headache Amitriptyline HCl (Amitriptyline Hcl 10 Mg Tablet) 10 mg PO BEDTIME [facility] Last Admin: 01/22/25 22:44 Dose: Not Given Documented By: LAURYN Non-Admin Reason: Patient Refused Atorvastatin Calcium (Atorvastatin Calcium 40 Mg Tablet) 40 mg PO DAILY [facility] Last Admin: 01/23/25 09:25 Dose: 40 mg Documented By: KAYLEEN Calcium Carbonate (Calcium Oyster Shell Elemental 500 Mg Tablet) 500 mg PO BID [facility] Last Admin: 01/23/25 09:26 Dose: 500 mg Documented By: KAYLEEN Dextrose (Dextrose 50 % 25 Gm/50 Ml Syringe) 25 gm IVPUSH Q15M PRN; Protocol PRN Reason: per Hypoglycemia Standing Ord. Erythromycin (Erythromycin Base 0.5% Oph Oin 1 Gm Tube) 1 cm EYE-BOTH BID [facility] Last Admin: 01/23/25 09:54 Dose: 1 cm Documented By: KAYLEEN Glucose (Glucose Gel 15 Gm Gel..Gram.) 15 gm PO Q15M PRN; Protocol PRN Reason: per Hypoglycemia Standing Ord. Hydromorphone HCl (Hydromorphone Hcl 0.5 Mg/0.5 Ml Syringe) 0.5 mg IVPUSH Q4H PRN; Protocol PRN Reason: Pain, Severe (Pain Scale 7-10) Lactated Ringer's (Lr) 1,000 mls @ 80 mls/hr IVCONT .[id number] [facility] Last Admin: 01/23/25 02:16 Dose: 80 mls/hr Documented By: LAURYN Magnesium Hydroxide (Milk Of Magnesia 30 Ml Oral.Susp) 5 ml PO BID [facility] Last Admin: 01/23/25 09:25 Dose: 5 ml Documented By: KAYLEEN Melatonin (Melatonin 3 Mg Tablet) 6 mg PO BEDTIME PRN PRN Reason: insomnia Metoprolol Succinate (Metoprolol Succinate Er 12.5 Mg Halftab.Er.24h) 12.5 mg PO DAILY [facility]; Protocol Last Admin: 01/23/25 09:26 Dose: 12.5 mg Documented By: KAYLEEN Mirtazapine (Mirtazapine 30 Mg Tablet) 30 mg PO BEDTIME [facility] Last Admin: 01/22/25 22:45 Dose: Not Given Documented By: LAURYN Non-Admin Reason: Patient Refused Multivitamins/Vitamin C (Multivitamin Tablet) 1 tab PO DAILY [facility] Last Admin: 01/23/25 09:26 Dose: 1 tab Documented By: KAYLEEN Ondansetron HCl (Ondansetron Hcl 4 Mg/2 Ml Vial) 4 mg IVPUSH Q8H PRN PRN Reason: Nausea and Vomiting Last Admin: 01/21/25 23:59 Dose: 4 mg Documented By: MEENA Pantoprazole Sodium (Pantoprazole Sodium 40 Mg/10 Ml Vial) 40 mg IVPUSH BID@0630,1630 [facility] Last Admin: 01/23/25 05:55 Dose: 40 mg Documented By: LAURYN Sertraline HCl (Sertraline Hcl 25 Mg Tablet) 25 mg PO DAILY [facility] Last Admin: 01/23/25 09:26 Dose: 25 mg Documented By: KAYLEEN Sodium Chloride (0.9 % Sodium Chloride Flush 3 Ml Syringe) 3 ml IVFLUSH QSHIFT [facility] Last Admin: 01/23/25 09:40 Dose: 3 ml Documented By: KAYLEEN Labs 01/23/25 09:27 01/23/25 09:27 Labs: Laboratory Results - last 24 hr 01/21/25 01/22/25 01/23/25 17:37 16:51 01:50 MCV MCH MCHC RDW Plt Count MPV Absolute Nucleated RBC Nucleated RBC % (auto) Anion Gap Estim Creat Clear Calc Estimated GFR POC Glucose 100 81 Random Glucose Calcium Blood Type O Positive Antibody Screen NEGATIVE Crossmatch See Detail 01/23/25 01/23/25 07:58 09:27 MCV 96.1 D MCH 32.0 MCHC 33.3 RDW 17.7 H Plt Count 203 D MPV 12.0 Absolute Nucleated RBC 0.000 Nucleated RBC % (auto) 0.0 Anion Gap 10 L Estim Creat Clear Calc 45.1 Estimated GFR > 60 POC Glucose 75 Random Glucose 84 Calcium 8.6 D Blood Type Antibody Screen Crossmatch Microbiology Microbiology Results: Microbiology 01/21/25 18:50 Blood Culture - Preliminary Blood - Venous No growth after 24 hours. 01/21/25 18:50 Blood Culture - Preliminary Blood - Venous No growth after 24 hours. Assessment and Plan (1) GIB (gastrointestinal bleeding): Status: Acute Assessment and Plan: d3 for 84yo F with HLD, HTN, CVA, CAD on clopidogrel,, dementia, Ellie glabrata esophagitis recently treated with caspofungin presenting with abdominal pain and coffee-ground emesis, found to be anemic though FOBT negative acute blood loss anemia due to GIB - clear liquids, Hb responded appropriately to 1u pRBCs, hold clopidogrel, plan EGD tomorrow cholelithiasis - not cholecystitis on US; d/c'ed piperacillin-tazobactam CAD hx CVA - hold clopidogrel, give metoprolol succinate + atorvastatin + amitriptylline moderate protein-calorie malnutrition - Nutrition consult, supplements when taking POs air in bladder - suspect due to catheterization, UA negative for infection arguing against empysematous cystitis conjunctivitis - erythromycin ointment HTN - metoprolol succinate dementia - sertraline + mirtazapine + amitriptyline VTE ppx - SCDs dispo - TBD In my clinical judgment, the patient requires continued inpatient hospitalization for the following reasons: GIB Total time managing care of this patient today: 45 minutes. Quality Stroke Does the patient have a stroke diagnosis?: No Reason for No Anti-thrombotic by Day Two: Contraindicated VTE Prior VTE?: No VTE Risk Level:: Medical - moderate - high VTE Device Contraindication: N/A - Device Ordered VTE Drug Contraindication: Treatment Not Indicated
--- NOTE | 2025-01-23 14:34 | MHC.SLORD ---
Speech Language Pathology Order Status: Pt not evaluated today as she remains on clear liquid diet, EGD planned tomorrow 01/24/25. VENEER STOCK LAYER to evaluate as indicated.
[2025-01-23 15:24] VITALS: BP 121/58; PULSE 80; RESP 20; TEMP 36.9; O2SAT 96
[2025-01-23 19:49] VITALS: BP 119/56; PULSE 73; RESP 18; TEMP 37.4; O2SAT 95
[2025-01-23 20:04] LABS: Glucose, Whole Blood 92 mg/dL (60-115)
[2025-01-23 23:48] VITALS: BP 113/56; PULSE 68; RESP 18; TEMP 36.4; O2SAT 96
[2025-01-24] VITALS (10 sets, daily range): BP systolic 104–137; BP diastolic 52–84; PULSE 59–89; RESP 15–20; TEMP 36.2–37.1; O2SAT 95–99
[2025-01-24] MEDS: Lactated Ringers 1,000 ML 80 ML IVCONT (02:02)
[2025-01-24] MEDS: 0.9 % Sodium Chloride Flush 3 ML SYRINGE IVFLUSH ×2 (02:02→21:44)
[2025-01-24 05:50] LABS: Hematocrit 32.3 % (37.0-47.0); Hemoglobin 11.3 g/dl (12.0-16.0); Mean Corpuscular Hemoglobin 32.9 pg (27.0-33.0); Mean Corpuscular Volume 94.2 fL (80.0-98.0); Platelet Count 359 X10*3/uL (160-400); Red Blood Count 3.43 X10*6/uL (4.20-5.50); Red Cell Distribution Width 16.6 % (11.0-16.0); White Blood Count 8.6 X10*3/uL (4.8-10.8)
[2025-01-24] MEDS: Pantoprazole Sodium 40 MG/10 ML VIAL IVPUSH (06:09)
--- NOTE | 2025-01-24 09:38 | PC.NURSE ---
this RN attempted to give patient morning medications with mechanical maintenance instructor at bedside, pt refusing to take all medications at this time, pt remains NPO for EGD today, pt stating she does not want to have procedure done and wants to go home now, pt does have a hx of dementia. Dr. Mcelroy made aware and states he will talk with HCP
--- NOTE | 2025-01-24 10:38 | MHC.SLORD ---
Speech Language Pathology Order Status: TEST DIRECTOR attempted to see pt for clinical swallow eval at bedside; pt away from room this AM.
--- NOTE | 2025-01-24 10:39 | MHC.SLORD ---
Speech Language Pathology Order Status: Pt NPO for EGD. COATING AND EMBOSSING UNIT OPERATOR to evaluate following procedure and once cleared for PO trials by
--- NOTE | 2025-01-24 13:08 | MHC.SHP ---
Pre-Procedural Eval Section A - 24 Hr Update-Section A only Date of Service: 01/24/25 The patient is an INPATIENT: Yes The patient has been examined within 24 hours of the surgical procedure. The History & Physical has been completed within 30 days and I have reviewed it.: Yes Section B - Complete if H&P > 30 days Chief Complaint: GIB Details of Present Illness: p/w coffee grounds emesis. Has hx of severe erosive esophagitis as well as aaron G esophagitis requiring IV caspofungin therapy. Allergies: Allergies Allergy/AdvReac Type Severity Reaction Status Date / Time No Known Allergies Allergy Unknown UNKNOWN Verified 01/24/25 13:04 [NO KNOWN ALLERGIES] Plan Diagnosis/Plan: Unchanged I have reviewed the history and physical and performed a pertinent physical examination on my patient. No changes have occurred unless specified. Time Spent With Patient Time: Total time managing care of this patient today ____ minutes.
--- NOTE | 2025-01-24 13:17 | PC.NURSE ---
Patient arrived to preop. PRN angio # 22 right AC flushed well, site asymptomatic.
--- NOTE | 2025-01-24 13:19 | PC.NURSE ---
Patient in preop. Last known dose of Plavix was prior to admission, [address] Ellis and Dr[address] Amadou morel.
--- NOTE | 2025-01-24 13:28 | P.OP_ITS ---
Operative Note Operative Note Date of Service: 01/24/25 Narrative: Procedure: Esophagogastroduodenoscopy Endoscopist: Antonia Tobar MD Indication: Hematemesis, dysphagia Anesthesia Provider: Dr Artur Ellis Anesthesia Type: MAC ?? EGD Procedure:?? The procedure, indications, preparation and potential complications were revi ewed with the patient's son (HCP) wiht the help of clerk checker who indicated understanding and gave written informed consent to proceed. A physical exam was performed. The endoscope was introduced through the mouth, and advanced to the second part of duodenum. The mucosa was carefully examined on slow withdrawal of the endoscope. The patient tolerated the procedure well. There were no immediate complications.? ? EGD Findings:? * Esophagus:? Severe esophagitis with white based ulceration extending from GE junction at 27 cm to 22 cm. The Z-line was displaced by hiatal hernia with the diaphragmatic pinch at 31 cm. Cold forceps biopsies were taken from the edges of the ulcer to rule out infectious esophagitis. * Stomach:? Normal mucosa was noted in the stomach. Retroflexion was performed in the cardia that showed Hill grade 3 hiatal hernia. * Duodenum:? Normal mucosa was noted in the whole of the examined duodenum. ? EGD Impressions:? * Grade D esophagitis (biopsy) * Hiatal hernia * Normal stomach * Normal duodenum ?? Recommendations:?? * Follow biopsy results. Our office will call or send a letter with results within 7-10 days. * Maximize anti-secretory therapy - omeprazole 20 BID + sucralfate 10 ml QID * Keep HOB at 30-45 deg at bedtime * Stay up right for atleast 60 mins post meals * Resume plavix today * Avoid NSAIDs. Above has been reviewed with the patient.
--- NOTE | 2025-01-24 13:28 | W.PM.OPN ---
Operative Note Operative Note Date of Service: 01/24/25 Narrative: Procedure: Esophagogastroduodenoscopy Endoscopist: Antonia Tobar MD Indication: Hematemesis, dysphagia Anesthesia Provider: Dr Artur Ellis Anesthesia Type: MAC ?? EGD Procedure:?? The procedure, indications, preparation and potential complications were reviewed with the patient's son (HCP) wiht the help of box covering machine operator who indicated understanding and gave written informed consent to proceed. A physical exam was performed. The endoscope was introduced through the mouth, and advanced to the second part of duodenum. The mucosa was carefully examined on slow withdrawal of the endoscope. The patient tolerated the procedure well. There were no immediate complications.? ? EGD Findings:? Esophagus:? Severe esophagitis with white based ulceration extending from GE junction at 27 cm to 22 cm. The Z-line was displaced by hiatal hernia with the diaphragmatic pinch at 31 cm. Cold forceps biopsies were taken from the edges of the ulcer to rule out infectious esophagitis. Stomach:? Normal mucosa was noted in the stomach. Retroflexion was performed in the cardia that showed Hill grade 3 hiatal hernia. Duodenum:? Normal mucosa was noted in the whole of the examined duodenum. ? EGD Impressions:? Grade D esophagitis (biopsy) Hiatal hernia Normal stomach Normal duodenum ?? Recommendations:?? Follow biopsy results. Our office will call or send a letter with results within 7-10 days. Maximize anti-secretory therapy - omeprazole 20 BID + sucralfate 10 ml QID Keep HOB at 30-45 deg at bedtime Stay up right for atleast 60 mins post meals Resume plavix today Avoid NSAIDs. Above has been reviewed with the patient.
--- NOTE | 2025-01-24 14:15 | P.PNIM_ITS ---
Subjective Subjective Date of Service: 01/24/25 Interval History: Somewhat agitated this a.m. but allowed EGD without incident. Review of Systems Unable to obtain Physical Exam 2 Vital Signs: Vital Signs: Last Vital Signs Temp 97.3 F 01/24/25 13:38 Pulse 65 01/24/25 13:52 Resp 15 01/24/25 13:52 BP 110/59 L 01/24/25 13:52 Pulse Ox 98 01/24/25 13:52 O2 Del Method Room Air 01/24/25 13:52 BMI result Body Mass Index 19.6 Const: Other: Awake alert no acute distress. Resp: Other: Clear to auscultation bilaterally no rales rhonchi or wheezes Cardio: Other: No S4; positive S1-S2; no S3 murmurs rubs or gallops GI: Other: Soft nontender nondistended normoactive bowel sounds Neuro: Other: Moving all extremities with equal power. No obvious deficits Extrem: Other: No edema bilaterally Objective Data Active Medications Acetaminophen (Acetaminophen 325 Mg Tablet) 650 mg PO Q6H PRN PRN Reason: Pain, Mild 1-3,fever,headache Amitriptyline HCl (Amitriptyline Hcl 10 Mg Tablet) 10 mg PO BEDTIME [facility] Last Admin: 01/24/25 00:00 Dose: Not Given Documented By: PAUL Non-Admin Reason: Patient Refused Atorvastatin Calcium (Atorvastatin Calcium 40 Mg Tablet) 40 mg PO DAILY [facility] Last Admin: 01/24/25 09:42 Dose: Not Given Documented By: ROSE Non-Admin Reason: Patient Refused Calcium Carbonate (Calcium Oyster Shell Elemental 500 Mg Tablet) 500 mg PO BID [facility] Last Admin: 01/24/25 09:43 Dose: Not Given Documented By: ROSE Non-Admin Reason: Patient Refused Dextrose (Dextrose 50 % 25 Gm/50 Ml Syringe) 25 gm IVPUSH Q15M PRN; Protocol PRN Reason: per Hypoglycemia Standing Ord. Erythromycin (Erythromycin Base 0.5% Oph Oin 1 Gm Tube) 1 cm EYE-BOTH BID [facility] Last Admin: 01/24/25 09:43 Dose: Not Given Documented By: ROSE Non-Admin Reason: Patient Refused Glucose (Glucose Gel 15 Gm Gel..Gram.) 15 gm PO Q15M PRN; Protocol PRN Reason: per Hypoglycemia Standing Ord. Hydromorphone HCl (Hydromorphone Hcl 0.5 Mg/0.5 Ml Syringe) 0.5 mg IVPUSH Q4H PRN; Protocol PRN Reason: Pain, Severe (Pain Scale 7-10) Magnesium Hydroxide (Milk Of Magnesia 30 Ml Oral.Susp) 5 ml PO BID [facility] Last Admin: 01/24/25 09:43 Dose: Not Given Documented By: ROSE Non-Admin Reason: Patient Refused Melatonin (Melatonin 3 Mg Tablet) 6 mg PO BEDTIME PRN PRN Reason: insomnia Metoprolol Succinate (Metoprolol Succinate Er 12.5 Mg Halftab.Er.24h) 12.5 mg PO DAILY [facility]; Protocol Last Admin: 01/24/25 09:43 Dose: Not Given Documented By: ROSE Non-Admin Reason: Patient Refused Mirtazapine (Mirtazapine 30 Mg Tablet) 30 mg PO BEDTIME [facility] Last Admin: 01/24/25 00:01 Dose: Not Given Documented By: PAUL Non-Admin Reason: Patient Refused Multivitamins/Vitamin C (Multivitamin Tablet) 1 tab PO DAILY [facility] Last Admin: 01/24/25 09:43 Dose: Not Given Documented By: ROSE Non-Admin Reason: Patient Refused Omeprazole (Omeprazole 20 Mg Yovanny.) 20 mg PO BID@0630,1630 [facility] Ondansetron HCl (Ondansetron Hcl 4 Mg/2 Ml Vial) 4 mg IVPUSH Q8H PRN PRN Reason: Nausea and Vomiting Last Admin: 01/21/25 23:59 Dose: 4 mg Documented By: MEENA Sertraline HCl (Sertraline Hcl 25 Mg Tablet) 25 mg PO DAILY [facility] Last Admin: 01/24/25 09:43 Dose: Not Given Documented By: ROSE Non-Admin Reason: Patient Refused Sodium Chloride (0.9 % Sodium Chloride Flush 3 Ml Syringe) 3 ml IVFLUSH QSHIFT [facility] Last Admin: 01/24/25 07:36 Dose: Not Given Documented By: ROSE Non-Admin Reason: IV Running Sucralfate (Sucralfate Oral Suspension 1 Gm/10 Ml Oral.Susp) 1 gm PO QIDACHS [facility] Labs 01/24/25 05:38 01/23/25 09:27 Labs: Laboratory Results - last 24 hr 01/23/25 01/24/25 19:52 05:38 MCV 94.2 MCH 32.9 MCHC 35.0 RDW 16.6 H Plt Count 359 D MPV 11.0 Absolute Nucleated RBC 0.000 Nucleated RBC % (auto) 0.0 POC Glucose 92 Microbiology Microbiology Results: Microbiology 01/21/25 18:50 Blood Culture - Preliminary Blood - Venous No growth after 48 hours. 01/21/25 18:50 Blood Culture - Preliminary Blood - Venous No growth after 48 hours. Assessment and Plan (1) Esophagitis: Status: Acute (2) Coronary artery disease: Status: Acute (3) HTN (hypertension): Status: Acute Plan 84yo F with HLD, HTN, CVA, CAD on clopidogrel,, dementia, Ellie glabrata esophagitis recently treated with caspofungin presenting with abdominal pain and coffee-ground emesis, found to be anemic though FOBT negative 1.Acute blood loss anemia due to Diffuse esophagitis -results of EGD noted..... Diffuse esophagitis -b.i.d. proton pump inhibitor with sucralfate; other GI recommendations noted -advance diet as tolerated 2.Cholelithiasis - not cholecystitis on US; d/c'ed piperacillin-tazobactam 3.CAD -resume Plavix clopidogrel, -metoprolol succinate/atorvastatin 4.HTN -acceptable control on current therapies -adjust as indicated Pneumatics Full Code Quality Stroke Does the patient have a stroke diagnosis?: No Reason for No Anti-thrombotic by Day Two: Contraindicated VTE Prior VTE?: No VTE Risk Level:: Medical - moderate - high VTE Device Contraindication: N/A - Device Ordered VTE Drug Contraindication: Treatment Not Indicated
--- NOTE | 2025-01-24 14:40 | P.CONAN_ITS ---
HPI - Anesthesia Eval Consult details Narrative: 84 F for EGD [facility] Active Problems Active Problems: All Active Problems Dysphagia (Acute) Systolic murmur (Acute) Emphysematous cystitis (Acute) Hyperglycemia (Acute) Diastolic murmur (Acute) Metabolic acidosis (Acute) Lactic acidosis (Acute) Conjunctivitis (Acute) Anemia (Acute) Cholecystitis (Acute) GIB (gastrointestinal bleeding) (Acute) Ellie glabrata infection (Acute) Esophagitis (Acute) Gastritis (Acute) Gastric ulcer (Acute) Weakness (Acute) Acute hypokalemia (Acute) Acute UTI (Acute) Rotator cuff arthropathy of right shoulder (Acute) Metacarpal bone fracture (Acute) Ulnar shaft fracture (Acute) COVID-19 (Acute) Fracture of distal end of right radius with routine healing (Acute) Distal radius fracture, right (Acute) Nausea & vomiting (Acute) Dementia (Acute) Gallstones (Acute) Abnormal nuclear stress test (Acute) Coronary artery disease (Acute) HLD (hyperlipidemia) (Acute) HTN (hypertension) (Acute) CVA, old, disturbances of vision (Acute ~09/2019) NSTEMI (non-ST elevated myocardial infarction) (Acute) Past Medical History Medical History Weight loss Candidiasis, esophageal Nausea & vomiting Gallstones Abnormal nuclear stress test HLD (hyperlipidemia) HTN (hypertension) CVA, old, disturbances of vision (~09/2019) NSTEMI (non-ST elevated myocardial infarction) Dementia Coronary artery disease Functional capacity: wheelchair bound Family History Family History Father No problems noted. Mother No problems noted. Family history of problems with anesthesia: No Surgical History Surgical History Previous section H/O eye surgery History of esophagogastroduodenoscopy (EGD) History of Problems with Anesthesia: No Social History Social History Household Members: Family and Unknown / Unable to assess Housing: Unknown / Unable to assess Are you a primary health care aide to a significant other at home: No Do you presently have visiting nurse or other home services: No Unable to assess alcohol history related to: Unable to respond and Unknown Alcohol intake: never Comment: 1:1 Patient Tobacco Use Status: Former Tobacco user Tobacco use type: Smokeless Tobacco Years Smoked: Chews tobacco e-Cigarette/Vaping Use: Never Used Second Hand Smoke Exposure: No Advance Directives Date on File: 09/02/22 service: No Current occupational status: retired and disabled 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 Meds Allergies Allergy/AdvReac Type Severity Reaction Status Date / Time No Known Allergies Allergy Unknown UNKNOWN Verified 01/24/25 13:04 [NO KNOWN ALLERGIES] Home Medications ?Medication ?Instructions ?Recorded ?Confirmed ?Last Taken ?Type amitriptyline 10 mg tablet 10 mg PO BEDTIME 08/02/20 12/21/24 Unknown History albuterol sulfate 90 mcg/actuation 2 puff PO Q4H PRN Wheezing 06/27/21 12/21/24 Unknown History aerosol inhaler mirtazapine 30 mg tablet 30 mg PO BEDTIME 06/27/21 12/21/24 Unknown History sertraline 25 mg tablet 1 tab PO DAILY 06/27/21 12/21/24 Unknown History clopidogrel 75 mg tablet 1 tab PO DAILY 09/02/22 12/21/24 Unknown History calcium 500 mg (as 1 tab PO BID 07/23/24 12/21/24 Unknown History carbonate)-vitamin D3 10 mcg (400 unit) tablet (Oyster Shell Calcium-Vitamin D3) melatonin 5 mg tablet 5 mg PO BEDTIME PRN insomnia 07/23/24 12/21/24 Unknown History multivitamin 1 tab PO QAM 12/21/24 12/21/24 Unknown History amitriptyline 10 mg tablet 10 mg PO BEDTIME 01/22/25 01/22/25 Unknown History atorvastatin 40 mg tablet 40 mg PO DAILY 01/22/25 01/22/25 Unknown History calcium 500 mg (as 1 tab PO BID 01/22/25 01/22/25 Unknown History carbonate)-vitamin D3 10 mcg (400 unit) tablet (Oyster Shell Calcium-Vitamin D3) clopidogrel 75 mg tablet 75 mg PO DAILY 01/22/25 01/22/25 Unknown History magnesium hydroxide 400 mg/5 mL 5 ml PO BID 01/22/25 01/22/25 Unknown History oral suspension (Milk of Magnesia) melatonin 5 mg tablet 5 mg PO BEDTIME PRN insomnia 01/22/25 01/22/25 Unknown History metoprolol succinate 25 mg 12.5 mg PO DAILY 01/22/25 01/22/25 Unknown History tablet,extended release 24 hr mirtazapine 30 mg tablet 30 mg PO BEDTIME 01/22/25 01/22/25 Unknown History multivitamin 1 tab PO DAILY 01/22/25 01/22/25 Unknown History pantoprazole 40 mg tablet,delayed 40 mg PO BID@0630,1630 01/22/25 01/22/25 Unknown History release sertraline 25 mg tablet 25 mg PO DAILY 01/22/25 01/22/25 Unknown History Exam Height,Weight and Vital Signs: Height 4 ft 10 in Weight 93 lb 11.143 oz Last Vital Signs Temp 97.3 F 01/25/25 12:00 Pulse 71 01/25/25 12:00 Resp 18 01/25/25 12:00 BP 131/59 L 01/25/25 12:00 Pulse Ox 100 01/25/25 12:00 O2 Del Method Room Air 01/25/25 12:00 Pertinent Lab Results Pertinent Lab Results: Laboratory Tests 01/21/25 01/21/25 01/21/25 17:14 17:37 18:50 WBC 21.0 H RBC 3.39 L Hgb 11.3 L Hct 34.1 L MCV 100.6 H MCH 33.3 H MCHC 33.1 RDW 14.6 Plt Count 459 H MPV 11.7 Immature Gran % (Auto) 0.7 H Neut % (Auto) 86.0 H Lymph % (Auto) 8.8 L [place] % (Auto) 4.2 Eos % (Auto) 0.0 Baso % (Auto) 0.3 Lymph # (Auto) 1.8 [place] # (Auto) 0.9 Eos # (Auto) 0.0 Baso # (Auto) 0.1 Abs Immat Gran (auto) 0.14 H Absolute Neuts (auto) 18.1 H Absolute Nucleated RBC 0.000 Nucleated RBC % (auto) 0.0 PT 12.7 H INR 1.1 APTT 24.5 L Sodium 137 Potassium 4.3 Chloride 99 Carbon Dioxide 19 L Anion Gap 23 H BUN 36 H Creatinine 0.85 Estim Creat Clear Calc 31.8 Estimated GFR > 60 POC Glucose 217 H Random Glucose 274 H Fasting Glucose Estimat Average Glucose 100 Hemoglobin A1c % 5.1 Lactic Acid 7.3 H* Lactic Acid F/U @ 2Hr Lactic Acid F/U @ 4Hr Calcium 9.4 Magnesium 2.2 Total Bilirubin 0.2 AST 27 ALT 11 Alkaline Phosphatase 57 Troponin I High Sens 12.0 C-Reactive Protein Total Protein 7.3 Albumin 3.5 Lipase 17 Urine Color Urine Appearance Urine pH Ur Specific [place] Urine Protein Urine Glucose (UA) Urine Ketones Urine Blood Urine Nitrite Ur Leukocyte Esterase Urine RBC Urine WBC Ur Squamous Epith Cells Urine Bacteria Hyaline Casts Granular Casts Stool Occult Blood Blood Type O Positive Antibody Screen NEGATIVE Crossmatch See Detail 01/21/25 01/21/25 01/21/25 18:57 20:47 23:05 WBC RBC Hgb 9.3 L Hct 27.4 L MCV MCH MCHC RDW Plt Count MPV Immature Gran % (Auto) Neut % (Auto) Lymph % (Auto) [place] % (Auto) Eos % (Auto) Baso % (Auto) Lymph # (Auto) [place] # (Auto) Eos # (Auto) Baso # (Auto) Abs Immat Gran (auto) Absolute Neuts (auto) Absolute Nucleated RBC Nucleated RBC % (auto) PT INR APTT Sodium Potassium Chloride Carbon Dioxide Anion Gap BUN Creatinine Estim Creat Clear Calc Estimated GFR POC Glucose Random Glucose Fasting Glucose Estimat Average Glucose Hemoglobin A1c % Lactic Acid Lactic Acid F/U @ 2Hr 3.5 H* Lactic Acid F/U @ 4Hr 2.1 H* Calcium Magnesium Total Bilirubin AST ALT Alkaline Phosphatase Troponin I High Sens 13.8 C-Reactive Protein Total Protein Albumin Lipase Urine Color Yellow Urine Appearance Cloudy Urine pH 8.5 Ur Specific [place] 1.020 Urine Protein Trace Urine Glucose (UA) Negative Urine Ketones Negative Urine Blood Negative Urine Nitrite Negative Ur Leukocyte Esterase Trace H Urine RBC 0-2 Urine WBC 0-5 Ur Squamous Epith Cells 3-5 Urine Bacteria None Seen Hyaline Casts 11-20 Granular Casts Present Stool Occult Blood Blood Type Antibody Screen Crossmatch 01/21/25 01/21/25 01/22/25 23:29 23:51 00:45 WBC RBC Hgb 9.3 L Hct 27.7 L MCV MCH MCHC RDW Plt Count MPV Immature Gran % (Auto) Neut % (Auto) Lymph % (Auto) [place] % (Auto) Eos % (Auto) Baso % (Auto) Lymph # (Auto) [place] # (Auto) Eos # (Auto) Baso # (Auto) Abs Immat Gran (auto) Absolute Neuts (auto) Absolute Nucleated RBC Nucleated RBC % (auto) PT INR APTT Sodium Potassium Chloride Carbon Dioxide Anion Gap BUN Creatinine Estim Creat Clear Calc Estimated GFR POC Glucose 134 H Random Glucose Fasting Glucose Estimat Average Glucose Hemoglobin A1c % Lactic Acid 2.4 H* Lactic Acid F/U @ 2Hr Lactic Acid F/U @ 4Hr Calcium Magnesium Total Bilirubin AST ALT Alkaline Phosphatase Troponin I High Sens C-Reactive Protein Total Protein Albumin Lipase Urine Color Urine Appearance Urine pH Ur Specific [place] Urine Protein Urine Glucose (UA) Urine Ketones Urine Blood Urine Nitrite Ur Leukocyte Esterase Urine RBC Urine WBC Ur Squamous Epith Cells Urine Bacteria Hyaline Casts Granular Casts Stool Occult Blood NEGATIVE Blood Type Antibody Screen Crossmatch 01/22/25 01/22/25 01/22/25 03:08 05:15 06:35 WBC 12.7 H RBC 2.26 L D Hgb 7.6 L Hct 23.4 L MCV 103.5 H MCH 33.6 H MCHC 32.5 RDW 15.0 Plt Count 296 D MPV 12.0 Immature Gran % (Auto) 0.3 Neut % (Auto) 56.8 Lymph % (Auto) 33.4 [place] % (Auto) 8.7 Eos % (Auto) 0.5 Baso % (Auto) 0.3 Lymph # (Auto) 4.3 [place] # (Auto) 1.1 Eos # (Auto) 0.1 Baso # (Auto) 0.0 Abs Immat Gran (auto) 0.04 H Absolute Neuts (auto) 7.2 Absolute Nucleated RBC 0.000 Nucleated RBC % (auto) 0.0 PT INR APTT Sodium 138 Potassium 4.5 Chloride 114 H Carbon Dioxide 19 L Anion Gap 10 L BUN 28 H Creatinine 0.53 Estim Creat Clear Calc 51.0 Estimated GFR > 60 POC Glucose 101 Random Glucose 102 Fasting Glucose Estimat Average Glucose Hemoglobin A1c % Lactic Acid Lactic Acid F/U @ 2Hr 1.9 Lactic Acid F/U @ 4Hr Calcium 8.1 L D Magnesium Total Bilirubin 0.2 AST 21 ALT 6 Alkaline Phosphatase 39 Troponin I High Sens C-Reactive Protein 0.56 H Total Protein 5.1 L Albumin 2.5 L Lipase Urine Color Urine Appearance Urine pH Ur Specific [place] Urine Protein Urine Glucose (UA) Urine Ketones Urine Blood Urine Nitrite Ur Leukocyte Esterase Urine RBC Urine WBC Ur Squamous Epith Cells Urine Bacteria Hyaline Casts Granular Casts Stool Occult Blood Blood Type Antibody Screen Crossmatch 01/22/25 01/22/25 01/22/25 10:47 12:08 16:51 WBC RBC Hgb 7.4 L Hct 22.6 L MCV MCH MCHC RDW Plt Count MPV Immature Gran % (Auto) Neut % (Auto) Lymph % (Auto) [place] % (Auto) Eos % (Auto) Baso % (Auto) Lymph # (Auto) [place] # (Auto) Eos # (Auto) Baso # (Auto) Abs Immat Gran (auto) Absolute Neuts (auto) Absolute Nucleated RBC Nucleated RBC % (auto) PT INR APTT Sodium Potassium Chloride Carbon Dioxide Anion Gap BUN Creatinine Estim Creat Clear Calc Estimated GFR POC Glucose 95 100 Random Glucose Fasting Glucose Estimat Average Glucose Hemoglobin A1c % Lactic Acid Lactic Acid F/U @ 2Hr Lactic Acid F/U @ 4Hr Calcium Magnesium Total Bilirubin AST ALT Alkaline Phosphatase Troponin I High Sens C-Reactive Protein Total Protein Albumin Lipase Urine Color Urine Appearance Urine pH Ur Specific [place] Urine Protein Urine Glucose (UA) Urine Ketones Urine Blood Urine Nitrite Ur Leukocyte Esterase Urine RBC Urine WBC Ur Squamous Epith Cells Urine Bacteria Hyaline Casts Granular Casts Stool Occult Blood Blood Type Antibody Screen Crossmatch 01/23/25 01/23/25 01/23/25 01:50 07:58 09:27 WBC 8.1 RBC 3.37 L D Hgb 10.8 L D Hct 32.4 L D MCV 96.1 D MCH 32.0 MCHC 33.3 RDW 17.7 H Plt Count 203 D MPV 12.0 Immature Gran % (Auto) Neut % (Auto) Lymph % (Auto) [place] % (Auto) Eos % (Auto) Baso % (Auto) Lymph # (Auto) [place] # (Auto) Eos # (Auto) Baso # (Auto) Abs Immat Gran (auto) Absolute Neuts (auto) Absolute Nucleated RBC 0.000 Nucleated RBC % (auto) 0.0 PT INR APTT Sodium 135 Potassium 3.9 Chloride 107 Carbon Dioxide 22 Anion Gap 10 L BUN 8 L Creatinine 0.60 Estim Creat Clear Calc 45.1 Estimated GFR > 60 POC Glucose 81 75 Random Glucose 84 Fasting Glucose Estimat Average Glucose Hemoglobin A1c % Lactic Acid Lactic Acid F/U @ 2Hr Lactic Acid F/U @ 4Hr Calcium 8.6 D Magnesium Total Bilirubin AST ALT Alkaline Phosphatase Troponin I High Sens C-Reactive Protein Total Protein Albumin Lipase Urine Color Urine Appearance Urine pH Ur Specific [place] Urine Protein Urine Glucose (UA) Urine Ketones Urine Blood Urine Nitrite Ur Leukocyte Esterase Urine RBC Urine WBC Ur Squamous Epith Cells Urine Bacteria Hyaline Casts Granular Casts Stool Occult Blood Blood Type Antibody Screen Crossmatch 01/23/25 01/24/25 01/25/25 19:52 05:38 05:08 WBC 8.6 7.3 RBC 3.43 L 3.19 L Hgb 11.3 L 10.3 L Hct 32.3 L 30.6 L MCV 94.2 95.9 MCH 32.9 32.3 MCHC 35.0 33.7 RDW 16.6 H 16.1 H Plt Count 359 D 352 MPV 11.0 11.5 Immature Gran % (Auto) 0.3 Neut % (Auto) 41.8 L Lymph % (Auto) 45.1 H [place] % (Auto) 9.3 Eos % (Auto) 2.7 Baso % (Auto) 0.8 Lymph # (Auto) 3.3 [place] # (Auto) 0.7 Eos # (Auto) 0.2 Baso # (Auto) 0.1 Abs Immat Gran (auto) 0.02 Absolute Neuts (auto) 3.1 Absolute Nucleated RBC 0.000 0.000 Nucleated RBC % (auto) 0.0 0.0 PT INR APTT Sodium 140 Potassium 3.6 Chloride 107 Carbon Dioxide 25 Anion Gap 12 BUN 6 L Creatinine 0.59 Estim Creat Clear Calc 45.8 Estimated GFR > 60 POC Glucose 92 Random Glucose Fasting Glucose 98 Estimat Average Glucose Hemoglobin A1c % Lactic Acid Lactic Acid F/U @ 2Hr Lactic Acid F/U @ 4Hr Calcium 8.6 Magnesium Total Bilirubin 0.3 AST 28 ALT 14 Alkaline Phosphatase 48 Troponin I High Sens C-Reactive Protein Total Protein 5.8 L Albumin 2.9 L Lipase Urine Color Urine Appearance Urine pH Ur Specific [place] Urine Protein Urine Glucose (UA) Urine Ketones Urine Blood Urine Nitrite Ur Leukocyte Esterase Urine RBC Urine WBC Ur Squamous Epith Cells Urine Bacteria Hyaline Casts Granular Casts Stool Occult Blood Blood Type Antibody Screen Crossmatch Airway Mallampati Class: III TM Dist: >3cm Neck ROM: Full Denture: Upper and Lower Assessment and Plan Assessment Anesthesia Assessment: Anesthesia Plan Discussed and Chart Reviewed Final Anesthetic Review Family History of Problems with Anesthesia: No History of Problems with Anesthesia: No NPO: Yes ASA Class: III and Emergency Final Preanesthetic Review: No Changes in Pt Med Stat, Meds/Allgs Chart Reviewed, Consent Obtained/Reviewed and Anes Risks/Benef Reviewed Patient Risk: High Procedure Risk: Low Anesthetic Plan Anesthetic Plan: MAC: Disposition: Standard PACU
--- NOTE | 2025-01-24 14:52 | MHC.SL.SWA ---
Dysphasia Diet Status: UPGRADE from ndd2/thin Liquid Consistency and Strategies for Safe Swallow: Liquid Intake Recommendation: Thin Solid Food Consistency: Dietary Recommendations: Chopped/Advanced (NDD3) Additional Modifications to Solid Foods: moisten w/ sauce/gravy Oral Medication Intake: Whole with Liquid Please contact the pharmacy regarding appropriate crushable or liquid drug formulations that are available whenever modified delivery is recommended. Compensatory Strategies and Precautions to be Taken for Safe Swallow: Sitting Upright (90 deg) Supervision While Eating and Drinking for Safe Swallow: Tray Set Up/Assistance as needed Recommendation for Speech: Inpatient Speech Therapy Comment: Recommend UPGRADE to CHOPPED/ADVANCED solids (NDD3). Recommend THIN liquids and pills whole (or pt preference). Pt expressed needing assistance while feeding; recommend assistance as needed. GAS DESULFURIZER to f/u 1-2x to ensure toleration of diet and upgrade if/when warranted. Frequency/Duration: f/u 1-2x Booster Pump Operator Clinican/Clinical Fellow: No Supervisory Statement: I have reviewed and agree with the student/clinical fellow's documentation: N/A Speech Language Pathologist: Marietta Gomez M.A., CCC-GAS DESULFURIZER
[2025-01-24] MEDS: Sucralfate Oral Suspension 1 GM/10 ML ORAL.SUSP PO ×2 (15:56→21:43)
[2025-01-24] MEDS: Omeprazole 20 MG CAPSULE.DR PO (15:56)
[2025-01-24] MEDS: Milk of Magnesia 30 ML ORAL.SUSP 5 ML PO (21:41)
[2025-01-24] MEDS: Amitriptyline HCl 10 MG TABLET PO (21:41)
[2025-01-24] MEDS: Melatonin 3 MG TABLET 6 MG PO (21:44)
[2025-01-24] MEDS: Calcium Oyster Shell Elemental 500 MG TABLET PO (21:44)
[2025-01-24] MEDS: Mirtazapine 30 MG TABLET PO (21:44)
[2025-01-25 03:18] VITALS: BP 122/60; PULSE 76; RESP 18; TEMP 36.8; O2SAT 97
[2025-01-25] MEDS: Omeprazole 20 MG CAPSULE.DR PO (05:53)
[2025-01-25 06:28] LABS: MANUAL DIFF FLAG NO
[2025-01-25 06:33] LABS: Basophils Absolute Auto 0.1 X10*3/uL (0.0-0.2); Basophils Percent Auto 0.8 % (0-2); Eosinophils Absolute Auto 0.2 X10*3/uL (0.0-0.4); Eosinophils Percent Auto 2.7 % (0-4); Hematocrit 30.6 % (37.0-47.0); Hemoglobin 10.3 g/dl (12.0-16.0); Imm Gran Abs Auto 0.02 X10*3/uL (0.00-0.03); Imm Gran Pct Auto 0.3 % (0.0-0.4); Lymphocytes Absolute Auto 3.3 X10*3/uL (1.2-4.9); Lymphocytes Percent Auto 45.1 % (20-40); Mean Corpuscular HGB Conc 33.7 g/dl (31.0-35.0); Mean Corpuscular Hemoglobin 32.3 pg (27.0-33.0); Mean Corpuscular Volume 95.9 fL (80.0-98.0); Mean Platelet Volume 11.5 fL (9.4-12.3); Monocytes Absolute Auto 0.7 X10*3/uL (0.1-1.2); Monocytes Percent Auto 9.3 % (2-11); Neutrophils Absolute Auto 3.1 x10*3/uL (2.0-8.3); Neutrophils Percent Auto 41.8 % (45-73); Platelet Count 352 X10*3/uL (160-400); Red Blood Count 3.19 X10*6/uL (4.20-5.50); Red Cell Distribution Width 16.1 % (11.0-16.0); White Blood Count 7.3 X10*3/uL (4.8-10.8)
[2025-01-25 06:45] LABS: Alanine Aminotransferase 14 U/L (0-31); Albumin Level 2.9 g/dL (3.5-5.0); Alkaline Phosphatase 48 U/L (39-117); Anion Gap 12 (12-20); Aspartate Amino Transferase 28 U/L (5-31); Bilirubin Total 0.3 mg/dL (0.0-1.0); Blood Urea Nitrogen 6 mg/dL (9-16); Calcium 8.6 mg/dL (8.4-10.2); Carbon Dioxide 25 mmol/L (22-29); Chloride 107 mmol/L (96-108); Creatinine Clr Calc Pharmacy 45.8; Estimated Glomerular Filt Rate > 60; Glucose Fasting 98 mg/dL (60-99); Potassium 3.6 mmol/L (3.3-5.1); Sodium 140 mmol/L (135-145); Total Protein 5.8 g/dL (6.5-8.0)
--- NOTE | 2025-01-25 07:46 | HO.POSTANES ---
Post Anesthesia Evaluation Post Anesthesia Evaluation Date of Service: 01/25/25 Vital Signs: Vital Signs Temp Pulse Resp BP Pulse Ox O2 Del Method 01/25/25 03:18 98.2 F 76 18 122/60 97 Room Air 01/24/25 23:42 97.6 F 89 20 109/60 96 Room Air Anesthesia: TIVA Mental Status: Awake Pain Control: Satisfactory Nausea/Vomiting: None Hydration: Adequate Anesthesia-Related Issues: No Anes. Related Issues
[2025-01-25 08:00] VITALS: BP 112/56; PULSE 70; RESP 18; TEMP 36.6; O2SAT 97
[2025-01-25] MEDS: Metoprolol Succinate ER 12.5 MG HALFTAB.ER.24H PO (08:41)
[2025-01-25] MEDS: Atorvastatin Calcium 40 MG TABLET PO (08:41)
[2025-01-25] MEDS: Sucralfate Oral Suspension 1 GM/10 ML ORAL.SUSP PO ×2 (08:41→11:19)
[2025-01-25] MEDS: Calcium Oyster Shell Elemental 500 MG TABLET PO (08:41)
[2025-01-25] MEDS: Sertraline HCL 25 MG TABLET PO (08:41)
[2025-01-25] MEDS: Milk of Magnesia 30 ML ORAL.SUSP 5 ML PO (08:41)
[2025-01-25] MEDS: 0.9 % Sodium Chloride Flush 3 ML SYRINGE IVFLUSH (08:41)
[2025-01-25] MEDS: Multivitamin TABLET 1 TAB PO (08:41)
--- NOTE | 2025-01-25 11:53 | PM.DS ---
DS: Providers Provider Date of Service: 01/25/25 Date of admission: 01/21/25 22:17 Date of discharge: 01/25/25 Primary care physician: Stef Greer MD Consults: 01/21/25 22:21 Consult to Gastroenterology Routine Consulting Provider: Krish Dixon Reason for consultation: GIB suspected Has provider been notified: No DS: Diagnosis Discharge Diagnosis (1) Esophagitis: Status: Acute (2) Coronary artery disease: Status: Acute (3) HTN (hypertension): Status: Acute DS: Summary Hospital Course Hospital Course: 84-year-old female recently admitted to [facility] 12/21 through 12/23 and diagnosed with esophageal candidiasis. Subsequent cultures grew out Ellie glabrata. She received 14 days of IV caspofungin without issue. Approximately 1 week prior to admission developed what family described as coffee-ground emesis. She was admitted to general medical floor and started on IV ppi. She was seen on consultation by GI and on 01/22/25 underwent EGD which demonstrated severe esophagitis. GI recommended high-dose PPI and sucralfate with follow up in the office. At this point in time she is medically acceptable and anxious to return home. She will be discharged on the aforementioned meds and will follow up with GI as an outpatient Time Attestation Discharge Coordination Time (in mins): 35 Quality: Safe Use of Opioids Does Pt have an Active Cancer Diagnosis on the Problem List?: No Quality: Stroke Does the patient have a stroke diagnosis?: No Physical Exam Vital Signs: Vital Signs: Last Vital Signs Temp 97.8 F 01/25/25 08:00 Pulse 70 01/25/25 08:00 Resp 18 01/25/25 08:00 BP 112/56 L 01/25/25 08:00 Pulse Ox 97 01/25/25 08:00 O2 Del Method Room Air 01/25/25 08:00 BMI result Body Mass Index 19.6 Const: Other: Awake alert no acute distress. Resp: Other: Clear to auscultation bilaterally no rales rhonchi or wheezes Cardio: Other: No S4; positive S1-S2; no S3 murmurs rubs or gallops GI: Other: Soft nontender nondistended normoactive bowel sounds Neuro: Other: Moving all extremities with equal power. No obvious deficits Extrem: Other: No edema bilaterally DS: Data Data Completed and Pending Completed studies during hospitalization [Text1]: Procedures Excision of Esophagus, Via Natural or Artificial Opening Endoscopic, Diagnostic (08/04/24) Excision of Stomach, Pylorus, Via Natural or Artificial Opening Endoscopic, Diagnostic (08/04/24) Extraction of Esophagus, Via Natural or Artificial Opening Endoscopic, Diagnostic (08/04/24) Insertion of Infusion Device into Left Brachial Vein, Percutaneous Approach (12/21/24) Pending studies at discharge: Pending at discharge 01/24/25 13:27 Surgical [PTH] Routine Labs on day of discharge: Laboratory Results - last 24 hr 01/25/25 05:08 WBC 7.3 RBC 3.19 L Hgb 10.3 L Hct 30.6 L MCV 95.9 MCH 32.3 MCHC 33.7 RDW 16.1 H Plt Count 352 MPV 11.5 Immature Gran % (Auto) 0.3 Neut % (Auto) 41.8 L Lymph % (Auto) 45.1 H [place] % (Auto) 9.3 Eos % (Auto) 2.7 Baso % (Auto) 0.8 Lymph # (Auto) 3.3 [place] # (Auto) 0.7 Eos # (Auto) 0.2 Baso # (Auto) 0.1 Abs Immat Gran (auto) 0.02 Absolute Neuts (auto) 3.1 Absolute Nucleated RBC 0.000 Nucleated RBC % (auto) 0.0 Sodium 140 Potassium 3.6 Chloride 107 Carbon Dioxide 25 Anion Gap 12 BUN 6 L Creatinine 0.59 Estim Creat Clear Calc 45.8 Estimated GFR > 60 Fasting Glucose 98 Calcium 8.6 Total Bilirubin 0.3 AST 28 ALT 14 Alkaline Phosphatase 48 Total Protein 5.8 L Albumin 2.9 L Preliminary micro results at discharge 01/21/25 18:50 Blood Culture - Preliminary Blood - Venous No growth after 48 hours. 01/21/25 18:50 Blood Culture - Preliminary Blood - Venous No growth after 48 hours. Discharge Plan Discharge Anticipated Discharge Date/Time: 01/25/25 11:44 Patient Disposition: Home Health Service Discharge Diagnosis: Grade D esophagitis Referrals: Name,MD Stef [Primary Care Provider] - 1 Week Discharge Medications: New sucralfate 100 mg/mL Suspension 1 g PO QIDACHS Qty: 1000 1RF Continued atorvastatin 40 mg tablet 40 mg PO DAILY Qty: 90 3RF mirtazapine 30 mg tablet 30 mg PO BEDTIME sertraline 25 mg tablet 1 tab PO DAILY albuterol sulfate 90 mcg/actuation HFA aerosol inhaler 2 puff PO Q4H PRN (Reason: Wheezing) clopidogrel 75 mg tablet 1 tab PO DAILY calcium carbonate-vitamin D3 [Oyster Shell Calcium-Vit D3] 500 mg-10 mcg (400 unit) tablet 1 tab PO BID melatonin 5 mg tablet 5 mg PO BEDTIME PRN (Reason: insomnia) pantoprazole 40 mg tablet,delayed release (DR/EC) 1 tab PO BID@0630,1630 Qty: 180 0RF ondansetron 4 mg tablet,disintegrating 4 mg PO Q6-8H PRN (Reason: nausea and vomiting) Qty: 7 0RF metoprolol succinate 25 mg tablet extended release 24 hr 12.5 mg PO DAILY Qty: 90 1RF multivitamin Tablet 1 tab PO QAM bisacodyl [Dulcolax (bisacodyl)] 5 mg tablet,delayed release (DR/EC) 10 mg PO BEDTIME 2 Days Qty: 4 0RF magnesium hydroxide [Milk of Magnesia] 400 mg/5 mL suspension 5 ml PO BID Qty: 355 0RF multivitamin Tablet 1 tab PO DAILY atorvastatin 40 mg tablet 40 mg PO DAILY clopidogrel 75 mg tablet 75 mg PO DAILY magnesium hydroxide [Milk of Magnesia] 400 mg/5 mL suspension 5 ml PO BID amitriptyline 10 mg tablet 10 mg PO BEDTIME pantoprazole 40 mg tablet,delayed release (DR/EC) 40 mg PO BID@0630,1630 mirtazapine 30 mg tablet 30 mg PO BEDTIME sertraline 25 mg tablet 25 mg PO DAILY calcium carbonate-vitamin D3 [Oyster Shell Calcium-Vit D3] 500 mg-10 mcg (400 unit) tablet 1 tab PO BID melatonin 5 mg tablet 5 mg PO BEDTIME PRN (Reason: insomnia) metoprolol succinate 25 mg tablet extended release 24 hr 12.5 mg PO DAILY amitriptyline 10 mg tablet 10 mg PO BEDTIME Discontinued sucralfate 1 gram tablet 1 g PO TID Qty: 90 0RF caspofungin [Cancidas] 50 mg Recon Soln 50 mg IV Q24H Qty: 12 0RF ciprofloxacin HCl 250 mg tablet 250 mg PO Q12H Qty: 6 0RF Discharge Orders: Discharge Order (Routine); Ordered 01/25/25 Ordered By: Clayton Mcelroy Diet: Advance to usual diet Activity on Discharge: As tolerated Stand Alone Forms: Patient Portal Discharge page Print Language: Unable To Collect Care Plan Goals: Your Carafate has been increased to 1 g 4 times a day before meals and at bedtime. Patient should be upright while eating and at least 2 hours after eating; head of bed up 45 degrees at bedtime at all times Health Concerns: Resume all meds as taken prior to hospitalization. Plan of Treatment: Follow up with the PCP and GI as scheduled. GI will call with the appointment Assessment: See discharge summary
[2025-01-25 12:00] VITALS: BP 131/59; PULSE 71; RESP 18; TEMP 36.3; O2SAT 100
--- NOTE | 2025-01-25 12:58 | MHC.CM.PN ---
IMM 01/25/25 Patient is discharged to home today. Daily [employer] services will resume. Family will assist at home and provide transportation home.
== END 2025-01-25 12:56 | disposition home or self-care (01) | DRG 369 ==
LOC: HO.ED 18:37 → HO.EDOVER 22:31 → HO.IMC 23:26 → HO.S3 01-23 23:56
PROVIDERS: Family Medicine; Internal Medicine; Student in an Organized Health Care Education/Training Program; Admitting Provider Nurse Practitioner Family; Emergency Provider Internal Medicine; PCP Internal Medicine Geriatric Medicine; Visit Provider Hospitalist
PROC: 0DJ08ZZ Inspection of Upper Intestinal Tract, Via Natural or Artificial Opening Endoscopic (ICD-10-PCS; CPT 43235; principal; 2025-01-24 14:20)
DX: K20.91 Esophagitis, unspecified with bleeding (principal); D62 Acute posthemorrhagic anemia; E44.0 Moderate protein-calorie malnutrition; Z68.1 Body mass index [BMI] 19.9 or less, adult; K80.20 Calculus of gallbladder without cholecystitis without obstruction; R01.1 Cardiac murmur, unspecified; R73.9 Hyperglycemia, unspecified; I10 Essential (primary) hypertension; H10.9 Unspecified conjunctivitis; F03.90 Unspecified dementia, unspecified severity, without behavioral disturbance, psychotic disturbance, mood disturbance, and anxiety; K44.9 Diaphragmatic hernia without obstruction or gangrene; I25.10 Atherosclerotic heart disease of native coronary artery without angina pectoris; Z87.891 Personal history of nicotine dependence; Z79.02 Long term (current) use of antithrombotics/antiplatelets; Z79.899 Other long term (current) drug therapy
CPT/HCPCS: 36415; 71045; 74176; 76705; 80048; 80053; 81001; 82272; 82947; 83036; 83605; 83690; 83735; 84484; 85014; 85018; 85025; 85027; 85610; 85730; 86140; 86850; 86900; 86901; 86923; 87040; 88305; 88312; 88341; 88342; 92610; 93005; 99285; J0696; J1836; J2003; J2405; J2470; J2543; J2704; J7120; P9016

== ENCOUNTER → 2025-01-21 17:22 | Outpatient (BNV) | payer OTHER, SELFPAY | PROVIDERS: Emergency Provider Internal Medicine; Visit Provider Radiology Diagnostic Radiology | DX: K80.18 Calculus of gallbladder with other cholecystitis without obstruction (principal); M19.012 Primary osteoarthritis, left shoulder | CPT/HCPCS: 71045; 74176 ==

== ENCOUNTER → 2025-01-21 17:30 | Outpatient (BNV) | payer OTHER, SELFPAY | PROVIDERS: Admitting Provider Nurse Practitioner Family; Emergency Provider Internal Medicine; Visit Provider Internal Medicine Cardiovascular Disease | DX: R94.31 Abnormal electrocardiogram [ECG] [EKG] (principal); R42 Dizziness and giddiness | CPT/HCPCS: 93010 ==

== ENCOUNTER 2025-01-21 22:17 | Outpatient (BNV) | payer OTHER, SELFPAY | END 2025-01-22 08:00 | PROVIDERS: Admitting Provider Nurse Practitioner Family; Emergency Provider Internal Medicine; Visit Provider Radiology Diagnostic Radiology | DX: K80.00 Calculus of gallbladder with acute cholecystitis without obstruction (principal) | CPT/HCPCS: 76705 ==

== ENCOUNTER → 2025-01-21 22:17 | Outpatient (BNV) | payer OTHER, SELFPAY | PROVIDERS: Admitting Provider Nurse Practitioner Family; Emergency Provider Internal Medicine; Visit Provider Nurse Practitioner Family | DX: K92.2 Gastrointestinal hemorrhage, unspecified (principal); K81.9 Cholecystitis, unspecified; D64.9 Anemia, unspecified; E87.20 Acidosis, unspecified; R73.9 Hyperglycemia, unspecified; H10.89 Other conjunctivitis; N30.80 Other cystitis without hematuria; R01.1 Cardiac murmur, unspecified; R13.12 Dysphagia, oropharyngeal phase | CPT/HCPCS: 99222; 99232; 99239 ==

== ENCOUNTER → 2025-01-21 22:17 | Outpatient (BNV) | payer OTHER, SELFPAY | PROVIDERS: Admitting Provider Nurse Practitioner Family; Emergency Provider Internal Medicine; PCP Internal Medicine Geriatric Medicine; Visit Provider Internal Medicine | DX: K22.10 Ulcer of esophagus without bleeding (principal); R13.10 Dysphagia, unspecified; K92.0 Hematemesis | CPT/HCPCS: 43239 ==

== ENCOUNTER 2025-02-01 18:16 | Inpatient (IN) | payer OTHER, SELFPAY ==
[2025-02-01] VITALS (9 sets, daily range): BP systolic 124–161; BP diastolic 65–96; PULSE 76–102; RESP 14–28; TEMP 35.7–38.2; O2SAT 96–100; BMI 19.2
--- NOTE | ~2025-02-01 | XR_ITS ---
CLINICAL HISTORY: fever 1 view chest x-ray Comparison: CR/SR - XR CHEST 1V - 08/04/24 11:03 EDT, 11/16/2024 03:50 PM EST: CR Findings: No consolidation or effusion. Heart size is normal. No acute fracture. IMPRESSION: 1. No acute findings. This document has been electronically signed by: Franky Montoya MD on 02/02/2025 00:55:51
--- NOTE | ~2025-02-01 | CT_ITS ---
CLINICAL HISTORY: known GI bleed CTA abdomen and pelvis with and without contrast COMPARISON: CT abdomen and pelvis 01/08/2025 FINDINGS: Punctate stones in the left kidney. No hydronephrosis. Cholelithiasis without evidence of cholecystitis. The liver, spleen, adrenals and pancreas are normal. Stable compression fracture deformity. No active arterial bleed identified. Significantly distended stomach. Otherwise, the bowel is normal in course and caliber. 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 IMPRESSION: No active arterial bleed identified. 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 This document has been electronically signed by: Franky Montoya MD on 02/01/2025 22:34:14
--- NOTE | 2025-02-01 19:03 | PC.NURSE ---
Patient is 84-year-old female recently admitted to [facility] recently diagnosed with esophageal candidiasis. Subsequent cultures grew out Ellie glabrata. She received 14 days of IV caspofungin without issue. Approximately 1 week prior to admission developed what family described as coffee-ground emesis. She was admitted to general medical floor and started on IV ppi. She was seen on consultation by GI and on 01/22/25 underwent EGD which demonstrated severe esophagitis. GI recommended high-dose PPI and sucralfate with follow up in the office. She will be discharged on the aforementioned meds and will follow up with GI as an outpatient. Patient alert and oriented to person/place. History of demenita. Lungs essentially clear. Respirations even and non-labored. Abdomen soft with positive bowel sounds. c/o epigastric pain. Positive pedal pulses with no edema noted.
[2025-02-01] MEDS: SODIUM CHLORIDE 1206 ML IV (19:43)
[2025-02-01] MEDS: Pantoprazole Sodium 40 MG/10 ML VIAL IVPUSH (19:43)
[2025-02-01] MEDS: cefTRIAXone sodium 2 GM VIAL IVPUSH (19:43)
[2025-02-01] MEDS: Acetaminophen Supp 650 MG SUPP.RECT PR (19:44)
[2025-02-01 20:10] LABS: MANUAL DIFF FLAG NO
[2025-02-01 20:11] LABS: Basophils Absolute Auto 0.1 X10*3/uL (0.0-0.2); Basophils Percent Auto 0.5 % (0-2); Eosinophils Absolute Auto 0.1 X10*3/uL (0.0-0.4); Eosinophils Percent Auto 0.6 % (0-4); Hematocrit 35.4 % (37.0-47.0); Hemoglobin 11.9 g/dl (12.0-16.0); Imm Gran Abs Auto 0.03 X10*3/uL (0.00-0.03); Imm Gran Pct Auto 0.3 % (0.0-0.4); Lymphocytes Absolute Auto 2.2 X10*3/uL (1.2-4.9); Mean Corpuscular HGB Conc 33.6 g/dl (31.0-35.0); Mean Corpuscular Hemoglobin 32.4 pg (27.0-33.0); Mean Corpuscular Volume 96.5 fL (80.0-98.0); Mean Platelet Volume 11.2 fL (9.4-12.3); Monocytes Percent Auto 8.4 % (2-11); Neutrophils Absolute Auto 8.3 x10*3/uL (2.0-8.3); Neutrophils Percent Auto 71.2 % (45-73); OBS Int Ctl Valid YES; OBS1 POSITIVE (NEGATIVE); Platelet Count 378 X10*3/uL (160-400); Red Blood Count 3.67 X10*6/uL (4.20-5.50); Red Cell Distribution Width 15.5 % (11.0-16.0); White Blood Count 11.6 X10*3/uL (4.8-10.8)
[2025-02-01 20:19] LABS: Prothrombin Time 11.9 SEC (10.9-12.4)
[2025-02-01 20:25] LABS: Alanine Aminotransferase < 6 U/L (0-31); Albumin Level 3.5 g/dL (3.5-5.0); Alkaline Phosphatase 65 U/L (39-117); Anion Gap 17 (12-20); Aspartate Amino Transferase 23 U/L (5-31); Bilirubin Total 0.4 mg/dL (0.0-1.0); Blood Urea Nitrogen 11 mg/dL (9-16); Calcium 9.3 mg/dL (8.4-10.2); Carbon Dioxide 24 mmol/L (22-29); Chloride 100 mmol/L (96-108); Creatinine Clr Calc Pharmacy 36.4; Estimated Glomerular Filt Rate > 60; Glucose Random 194 mg/dL (60-115); Lipase 18 U/L (8-78); Potassium 3.3 mmol/L (3.3-5.1); Sodium 138 mmol/L (135-145)
[2025-02-01 20:29] LABS: Lactic Acid 3.2 mmol/L (0.5-2.0)
[2025-02-01] MEDS: iohexoL 350 MG/ML 100 ML INFUS..BTL 85 ML IV (21:00)
[2025-02-01 22:09] LABS: Reflex Lactate? Lactic Acid Added
--- NOTE | 2025-02-01 22:28 | MHC.EDTECH ---
pt found vomiting on floor and on bedding, brown emesis noted. pt was cleaned, fresh linen given, RN aware
--- NOTE | 2025-02-01 22:30 | PC.NURSE ---
Patient noted to vomit a large amount of jordan emesis onto the floor. Also incontinent during this episode. Incontinence care and bed change provided. Purewick applied.
--- NOTE | 2025-02-01 22:39 | ED.ABDPAIN ---
HPI - Abdominal Pain General Chief Complaint: Abdominal Pain Stated Complaint: Abd pain x1 hr ago, epigastric pain, nausea Time Seen by Provider: 02/01/25 19:07 Source: EMS Limitations: language barrier and other History of Present Illness ED Provider: Dahlia Doss PA-C HPI narrative: 84-year-old female with a history of hyperlipidemia, hypertension, CVA, NSTEMI, dementia, CAD on Plavix, with recent admission for esophageal candidiasis and subsequent GI bleed that devloped during the admission, presents with upper abdominal discomfort prior to arrival. Associated objective coffee-ground emesis with dark stool. Patient was found to be febrile here in the emergency room. History limited secondary to dementia. Related Data Home Medications ?Medication ?Instructions ?Recorded ?Confirmed amitriptyline 10 mg tablet 10 mg PO BEDTIME 08/02/20 12/21/24 albuterol sulfate 90 mcg/actuation 2 puff PO Q4H PRN Wheezing 06/27/21 12/21/24 aerosol inhaler mirtazapine 30 mg tablet 30 mg PO BEDTIME 06/27/21 12/21/24 sertraline 25 mg tablet 1 tab PO DAILY 06/27/21 12/21/24 clopidogrel 75 mg tablet 1 tab PO DAILY 09/02/22 12/21/24 calcium 500 mg (as 1 tab PO BID 07/23/24 12/21/24 carbonate)-vitamin D3 10 mcg (400 unit) tablet (Oyster Shell Calcium-Vitamin D3) melatonin 5 mg tablet 5 mg PO BEDTIME PRN insomnia 07/23/24 12/21/24 multivitamin 1 tab PO QAM 12/21/24 12/21/24 amitriptyline 10 mg tablet 10 mg PO BEDTIME 01/22/25 01/22/25 atorvastatin 40 mg tablet 40 mg PO DAILY 01/22/25 01/22/25 calcium 500 mg (as 1 tab PO BID 01/22/25 01/22/25 carbonate)-vitamin D3 10 mcg (400 unit) tablet (Oyster Shell Calcium-Vitamin D3) clopidogrel 75 mg tablet 75 mg PO DAILY 01/22/25 01/22/25 magnesium hydroxide 400 mg/5 mL 5 ml PO BID 01/22/25 01/22/25 oral suspension (Milk of Magnesia) melatonin 5 mg tablet 5 mg PO BEDTIME PRN insomnia 01/22/25 01/22/25 metoprolol succinate 25 mg 12.5 mg PO DAILY 01/22/25 01/22/25 tablet,extended release 24 hr mirtazapine 30 mg tablet 30 mg PO BEDTIME 01/22/25 01/22/25 multivitamin 1 tab PO DAILY 01/22/25 01/22/25 pantoprazole 40 mg tablet,delayed 40 mg PO BID@0630,1630 01/22/25 01/22/25 release sertraline 25 mg tablet 25 mg PO DAILY 01/22/25 01/22/25 Previous Rx's ?Medication ?Instructions ?Recorded atorvastatin 40 mg tablet 40 mg PO DAILY #90 tabs 02/26/21 pantoprazole 40 mg tablet,delayed 1 tab PO BID@0630,1630 #180 tabs 08/09/24 release ondansetron 4 mg disintegrating 4 mg PO Q6-8H PRN nausea and 10/18/24 tablet vomiting #7 tabs metoprolol succinate 25 mg 12.5 mg (1/2 x 25 mg) PO DAILY #90 10/20/24 tablet,extended release 24 hr tabs bisacodyl 5 mg tablet,delayed 10 mg (2 x 5 mg) PO BEDTIME 2 days 01/08/25 release (Dulcolax (bisacodyl)) #4 tabs magnesium hydroxide 400 mg/5 mL 5 ml PO BID #355 mL 01/08/25 oral suspension (Milk of Magnesia) sucralfate 100 mg/mL oral 1 g (10 mL) PO QIDACHS #1,000 mL 01/25/25 suspension Allergies Allergy/AdvReac Type Severity Reaction Status Date / Time No Known Allergies Allergy Unknown UNKNOWN Verified 02/01/25 18:36 [NO KNOWN ALLERGIES] Review of Systems Review of Systems Unable to obtain secondary to dementia Yes all other systems are reviewed and are negative Constitutional: Reports fever(s) PMFSH Past Medical History Attestation statement: The following information was validated with the patient. Medical History Weight loss Candidiasis, esophageal Nausea & vomiting Gallstones Abnormal nuclear stress test HLD (hyperlipidemia) HTN (hypertension) CVA, old, disturbances of vision (~09/2019) NSTEMI (non-ST elevated myocardial infarction) Dementia Coronary artery disease Surgical History Previous section H/O eye surgery History of esophagogastroduodenoscopy (EGD) Family History Family History Father No problems noted. Mother No problems noted. Social History Social History Household Members: Family and Unknown / Unable to assess Housing: Unknown / Unable to assess Are you a primary elderly caregiver to a significant other at home: No Do you presently have visiting nurse or other home services: No Unable to assess alcohol history related to: Unable to respond and Unknown Alcohol intake: never Comment: 1:1 Patient Tobacco Use Status: Former Tobacco user Tobacco use type: Smokeless Tobacco Years Smoked: Chews tobacco e-Cigarette/Vaping Use: Never Used Second Hand Smoke Exposure: No Advance Directives: Yes Advance Directives on File: Yes Advance Directives Date on File: 09/02/22 Do you have a plan to hurt others: No Plan service: No Current occupational status: retired and disabled 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 Physical Exam ED Vital Signs: Vital Signs - 24 hr 02/01/25 18:34 02/01/25 18:52 02/01/25 19:14 Temperature 96.3 F L 100.7 F H Pulse Rate 102 H 100 Respiratory Rate 20 20 Blood Pressure 142/96 H 145/73 H Pulse Oximetry 100 96 Oxygen Delivery Method Room Air Room Air 02/01/25 20:14 02/01/25 20:17 02/01/25 20:58 Temperature 100.7 F H 98.2 F Pulse Rate 84 84 89 Respiratory Rate 25 H 22 H 28 H Blood Pressure 144/65 H 144/65 H 145/71 H Pulse Oximetry 99 99 99 Oxygen Delivery Method Room Air Room Air Room Air 02/01/25 21:17 02/01/25 21:17 02/01/25 21:40 Temperature 100.2 F 100.2 F Pulse Rate 84 101 H 98 Respiratory Rate 14 26 H 22 H Blood Pressure 152/65 H 161/85 H 135/65 Pulse Oximetry 100 100 100 Oxygen Delivery Method Room Air Room Air Room Air 02/01/25 21:40 02/01/25 21:40 02/01/25 23:05 Temperature 100.2 F 100.2 F 98.6 F Pulse Rate 76 Respiratory Rate 18 Blood Pressure 129/91 H Pulse Oximetry 98 Oxygen Delivery Method Room Air 02/02/25 01:01 Temperature 98.7 F Pulse Rate 70 Respiratory Rate 17 Blood Pressure 116/65 Pulse Oximetry 97 Oxygen Delivery Method Room Air BMI result Body Mass Index 19.2 Const Other: Awake, cachectic Orientation/consciousness: oriented to person Resp Effort & Inspection: normal respiratory effort Cardio Other: Normal peripheral perfusion GI Other: Abdomen is soft, with moderate to severe tenderness over upper abdomen with moderate involuntary guarding, patient readily pushes my hand away from her abdomen. Patient objectively vomited coffee-ground emesis, she has dark stool per rectum, Skin Other: Warm dry no rash Neuro General: oriented to person, no focal motor deficits and CN's II-XI intact bilaterally Extrem Other: Moves all extremities independently Psych Other: Cooperative Course Reevaluation(s) Reevaluation #1: At 7:15 p.m. p.m. on February 01, sepsis focused exam was initiated. Patient found to be febrile rectally. In addition to screening labs we will be obtaining blood cultures, lactic acid, starting weight based IV fluid and ceftriaxone. Time: 19:15 Medical Decision Making Medical Decision Making MDM Narrative: 84-year-old female with a history of hyperlipidemia, hypertension, CVA, NSTEMI, dementia, CAD on Plavix, with recent admission for esophageal candidiasis and subsequent GI bleed that devloped during the admission, presents with upper abdominal discomfort prior to arrival. Associated objective coffee-ground emesis with dark stool. Patient was found to be febrile here in the emergency room. History limited secondary to dementia. Problem: Known GI bleed, dementia History: Per EMS I have considered the following differential diagnoses: GI bleed, sepsis, UTI, pneumonia, viral syndrome Plan: At 7:15 p.m. p.m. on February 01, sepsis focused exam was initiated. Patient found to be febrile rectally. In addition to screening labs we will be obtaining blood cultures, lactic acid, starting weight based IV fluid and ceftriaxone. We will give rectal Tylenol. We will also be giving Protonix, she has known GI bleeding from her recent admission. Her abdominal exam was concerning I am obtaining a CT scan. We will also assess for other potential sources for sepsis. Adding UA, chest x-ray and a viral panel. I have independently reviewed the following tests: Labs: Slight leukocytosis, not anemic, no electrolyte abnormality, 1st lactic acid 3.2, the 2nd is 2.3, 3rd lactic pending, viral panel negative, urine not infected, guaiac positive Chest x-ray:IMPRESSION: 1. No acute findings. CT abd pelvis: FINDINGS: Punctate stones in the left kidney. No hydronephrosis. Cholelithiasis without evidence of cholecystitis. The liver, spleen, adrenals and pancreas are normal. Stable compression fracture deformity. No active arterial bleed identified. Significantly distended stomach. Otherwise, the bowel is normal in course and caliber. 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 IMPRESSION: No active arterial bleed identified. 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 Lab Data 02/01/25 20:06 02/01/25 20:06 Labs: Lab Results 02/01/25 02/01/25 02/01/25 Range/Units 20:06 22:31 22:45 WBC 11.6 H (4.8-10.8) X10*3/uL RBC 3.67 L (4.20-5.50) X10*6/uL Hgb 11.9 L (12.0-16.0) g/dl Hct 35.4 L (37.0-47.0) % MCV 96.5 (80.0-98.0) fL MCH 32.4 (27.0-33.0) pg MCHC 33.6 (31.0-35.0) g/dl RDW 15.5 (11.0-16.0) % Plt Count 378 (160-400) X10*3/uL MPV 11.2 (9.4-12.3) fL Immature Gran % (Auto) 0.3 (0.0-0.4) % Neut % (Auto) 71.2 (45-73) % Lymph % (Auto) 19.0 L (20-40) % [place] % (Auto) 8.4 (2-11) % Eos % (Auto) 0.6 (0-4) % Baso % (Auto) 0.5 (0-2) % Lymph # (Auto) 2.2 (1.2-4.9) X10*3/uL [place] # (Auto) 1.0 (0.1-1.2) X10*3/uL Eos # (Auto) 0.1 (0.0-0.4) X10*3/uL Baso # (Auto) 0.1 (0.0-0.2) X10*3/uL Abs Immat Gran (auto) 0.03 (0.00-0.03) X10*3/uL Absolute Neuts (auto) 8.3 (2.0-8.3) x10*3/uL Absolute Nucleated RBC 0.000 (0.0-0.012) X10*3/uL Nucleated RBC % (auto) 0.0 (0.0-0.2) /100WBC PT 11.9 (10.9-12.4) SEC INR 1.0 (0.9-1.1) Sodium 138 (135-145) mmol/L Potassium 3.3 (3.3-5.1) mmol/L Chloride 100 (96-108) mmol/L Carbon Dioxide 24 (22-29) mmol/L Anion Gap 17 (12-20) BUN 11 (9-16) mg/dL Creatinine 0.70 (0.5-1.4) mg/dL Estim Creat Clear Calc 36.4 Estimated GFR > 60 Random Glucose 194 H (60-115) mg/dL Lactic Acid 3.2 H* (0.5-2.0) mmol/L Lactic Acid F/U @ 2Hr 2.3 H* (0.5-2.0) mmol/L Calcium 9.3 D (8.4-10.2) mg/dL Magnesium 2.0 (1.6-2.6) mg/dL Total Bilirubin 0.4 (0.0-1.0) mg/dL AST 23 (5-31) U/L ALT < 6 (0-31) U/L Alkaline Phosphatase 65 (39-117) U/L Total Protein 7.0 (6.5-8.0) g/dL Albumin 3.5 (3.5-5.0) g/dL Lipase 18 (8-78) U/L Urine Color Urine Appearance Urine pH (5.0-9.0) Ur Specific [place] (1.005-1.025) Urine Protein (Neg-Trace) mg/dL Urine Glucose (UA) (Negative) mg/dL Urine Ketones (Negative) mg/dL Urine Blood (Negative) Urine Nitrite (Negative) Ur Leukocyte Esterase (Negative) Urine RBC (0-2) /HPF Urine WBC (0-5) /HPF Ur Squamous Epith Cells (0-2) /HPF Urine Bacteria (None Seen) Hyaline Casts (0-2) /LPF Stool Occult Blood POSITIVE (NEGATIVE) Influenza Type A (PCR) NEGATIVE (Negative) Influenza Type B (PCR) NEGATIVE (Negative) RSV RNA Qual (PCR) NEGATIVE (Negative) SARS-CoV-2 RNA (RT-PCR) NEGATIVE (Negative) 02/02/25 Range/Units 00:22 WBC (4.8-10.8) X10*3/uL RBC (4.20-5.50) X10*6/uL Hgb (12.0-16.0) g/dl Hct (37.0-47.0) % MCV (80.0-98.0) fL MCH (27.0-33.0) pg MCHC (31.0-35.0) g/dl RDW (11.0-16.0) % Plt Count (160-400) X10*3/uL MPV (9.4-12.3) fL Immature Gran % (Auto) (0.0-0.4) % Neut % (Auto) (45-73) % Lymph % (Auto) (20-40) % [place] % (Auto) (2-11) % Eos % (Auto) (0-4) % Baso % (Auto) (0-2) % Lymph # (Auto) (1.2-4.9) X10*3/uL [place] # (Auto) (0.1-1.2) X10*3/uL Eos # (Auto) (0.0-0.4) X10*3/uL Baso # (Auto) (0.0-0.2) X10*3/uL Abs Immat Gran (auto) (0.00-0.03) X10*3/uL Absolute Neuts (auto) (2.0-8.3) x10*3/uL Absolute Nucleated RBC (0.0-0.012) X10*3/uL Nucleated RBC % (auto) (0.0-0.2) /100WBC PT (10.9-12.4) SEC INR (0.9-1.1) Sodium (135-145) mmol/L Potassium (3.3-5.1) mmol/L Chloride (96-108) mmol/L Carbon Dioxide (22-29) mmol/L Anion Gap (12-20) BUN (9-16) mg/dL Creatinine (0.5-1.4) mg/dL Estim Creat Clear Calc Estimated GFR Random Glucose (60-115) mg/dL Lactic Acid (0.5-2.0) mmol/L Lactic Acid F/U @ 2Hr (0.5-2.0) mmol/L Calcium (8.4-10.2) mg/dL Magnesium (1.6-2.6) mg/dL Total Bilirubin (0.0-1.0) mg/dL AST (5-31) U/L ALT (0-31) U/L Alkaline Phosphatase (39-117) U/L Total Protein (6.5-8.0) g/dL Albumin (3.5-5.0) g/dL Lipase (8-78) U/L Urine Color Yellow Urine Appearance Cloudy Urine pH >= 9.0 (5.0-9.0) Ur Specific [place] >= 1.030 H (1.005-1.025) Urine Protein 30 (1+) H (Neg-Trace) mg/dL Urine Glucose (UA) Negative (Negative) mg/dL Urine Ketones Negative (Negative) mg/dL Urine Blood Negative (Negative) Urine Nitrite Negative (Negative) Ur Leukocyte Esterase Negative (Negative) Urine RBC 0-2 (0-2) /HPF Urine WBC 0-5 (0-5) /HPF Ur Squamous Epith Cells 0-2 (0-2) /HPF Urine Bacteria None Seen (None Seen) Hyaline Casts 0-2 (0-2) /LPF Stool Occult Blood (NEGATIVE) Influenza Type A (PCR) (Negative) Influenza Type B (PCR) (Negative) RSV RNA Qual (PCR) (Negative) SARS-CoV-2 RNA (RT-PCR) (Negative) Medications Administered Discontinued Medications Generic Name Dose Route Start Last Admin Trade Name Freq PRN Reason Stop Dose Admin Acetaminophen 650 mg 02/01/25 19:15 02/01/25 19:44 Acetaminophen Supp 650 Mg Supp.Rect SC 02/01/25 19:16 650 mg ONCE ONE Administration Ceftriaxone Sodium 2 gm 02/01/25 19:14 02/01/25 19:43 Ceftriaxone Sodium 2 Gm Vial IVPUSH 02/01/25 19:15 2 gm ONCE ONE Administration Sodium Chloride 1,206 mls @ 1,206 mls/hr 02/01/25 19:15 02/01/25 21:05 Ns 30 ml/kg infuse over 1 hr (1206 ml) 02/01/25 20:14 Infused IV Infusion .Q1H STA Iohexol 85 ml 02/01/25 21:00 02/01/25 21:00 Iohexol 350 Mg/Ml 100 Ml Infus..Btl IV 02/01/25 21:01 85 ml ONCE ONE Administration Ondansetron HCl 4 mg 02/01/25 22:41 02/01/25 23:07 Ondansetron Hcl 4 Mg/2 Ml Vial IVPUSH 02/01/25 22:42 4 mg ONCE ONE Administration Pantoprazole Sodium 40 mg 02/01/25 19:09 02/01/25 19:43 Pantoprazole Sodium 40 Mg/10 Ml Vial IVPUSH 02/01/25 19:10 40 mg ONCE ONE Administration Discharge Plan Discharge Clinical Impression: Sepsis, Acute upper GI bleed Patient Disposition: Admitted As Inpatient Prescriptions: No Action atorvastatin 40 mg tablet 40 mg PO DAILY Qty: 90 3RF mirtazapine 30 mg tablet 30 mg PO BEDTIME sertraline 25 mg tablet 1 tab PO DAILY albuterol sulfate 90 mcg/actuation HFA aerosol inhaler 2 puff PO Q4H PRN (Reason: Wheezing) clopidogrel 75 mg tablet 1 tab PO DAILY calcium carbonate-vitamin D3 [Oyster Shell Calcium-Vit D3] 500 mg-10 mcg (400 unit) tablet 1 tab PO BID melatonin 5 mg tablet 5 mg PO BEDTIME PRN (Reason: insomnia) pantoprazole 40 mg tablet,delayed release (DR/EC) 1 tab PO BID@0630,1630 Qty: 180 0RF ondansetron 4 mg tablet,disintegrating 4 mg PO Q6-8H PRN (Reason: nausea and vomiting) Qty: 7 0RF metoprolol succinate 25 mg tablet extended release 24 hr 12.5 mg PO DAILY Qty: 90 1RF multivitamin Tablet 1 tab PO QAM bisacodyl [Dulcolax (bisacodyl)] 5 mg tablet,delayed release (DR/EC) 10 mg PO BEDTIME 2 Days Qty: 4 0RF magnesium hydroxide [Milk of Magnesia] 400 mg/5 mL suspension 5 ml PO BID Qty: 355 0RF multivitamin Tablet 1 tab PO DAILY atorvastatin 40 mg tablet 40 mg PO DAILY clopidogrel 75 mg tablet 75 mg PO DAILY magnesium hydroxide [Milk of Magnesia] 400 mg/5 mL suspension 5 ml PO BID amitriptyline 10 mg tablet 10 mg PO BEDTIME pantoprazole 40 mg tablet,delayed release (DR/EC) 40 mg PO BID@0630,1630 mirtazapine 30 mg tablet 30 mg PO BEDTIME sertraline 25 mg tablet 25 mg PO DAILY calcium carbonate-vitamin D3 [Oyster Shell Calcium-Vit D3] 500 mg-10 mcg (400 unit) tablet 1 tab PO BID melatonin 5 mg tablet 5 mg PO BEDTIME PRN (Reason: insomnia) metoprolol succinate 25 mg tablet extended release 24 hr 12.5 mg PO DAILY sucralfate 100 mg/mL Suspension 1 g PO QIDACHS Qty: 1000 1RF amitriptyline 10 mg tablet 10 mg PO BEDTIME Print Language: Unable To Collect
[2025-02-01 22:54] LABS: ~Lactic Acid-LAB USE ONLY 2.3 mmol/L (0.5-2.0)
--- NOTE | 2025-02-01 22:59 | MHC.EDTECH ---
this tech assumed care of pt @[id number]
[2025-02-01] MEDS: ondansetron HCL 4 MG/2 ML VIAL IVPUSH (23:07)
[2025-02-01 23:32] LABS: Influenza A PCR NEGATIVE (Negative); Influenza B PCR NEGATIVE (Negative); Resp Syncy Virus RNA Qual PCR NEGATIVE (Negative); SARS COV2 PCR INHOUSE NEGATIVE (Negative)
[2025-02-02] VITALS (9 sets, daily range): BP systolic 96–160; BP diastolic 41–65; PULSE 58–98; RESP 12–18; TEMP 36–37.1; O2SAT 96–100; BMI 19.1
--- NOTE | 2025-02-02 00:27 | MHC.EDTECH ---
at this time this tech assisted the RN w/ a straight cath on the pt, pt tolerated well with no signs of pain or discomforted witnessed, urine sent down to lab
[2025-02-02 00:33] LABS: Reflex Lactate? 2 Y
[2025-02-02 00:36] LABS: Appearance Urine Cloudy; Color Urine Yellow; Glucose Urine UA Negative (Negative); Leukocyte Esterase Urine Negative (Negative); Nitrite Urine Negative (Negative); PH >= 9.0 (5.0-9.0); Specific Gravity - Urine >= 1.030 (1.005-1.025); UMIC TRIGGER UACC YES; Urine Blood Negative (Negative); Urine Ketones Negative (Negative); Urine Protein 30 (1+) mg/dL (Neg-Trace)
[2025-02-02 00:38] LABS: Bacteria Urine None Seen (None Seen); Hyaline Casts Urine 0-2 /LPF (0-2); RBC Urine 0-2 /HPF (0-2); Squamous Epithelial Cell Urine 0-2 /HPF (0-2); WBC Urine 0-5 /HPF (0-5)
[2025-02-02] MEDS: Pantoprazole Sodium 40 MG/10 ML VIAL IVPUSH ×2 (01:07→17:30)
--- NOTE | 2025-02-02 01:15 | P.HPHOSP_ITS ---
History of Present Illness Date of Service: 02/02/25 Chief Complaint: Coffee ground emesis This is a 84-year-old female with pertinent history of Ellie glabrata esophagitis recently treated with caspofungin, recent admission for acute GI bleed with EGD findings of severe esophagitis, CVA, hypertension, mixed hyperlipidemia, CAD on clopidogrel, unspecified dementia who was brought to the emergency department for evaluation of abdominal pain and coffee-ground emesis. Patient is a poor historian and is mostly nonverbal due to severe dementia at baseline. Apparently patient was complaining of upper abdominal discomfort prior to arrival. Patient noted to have coffee-ground emesis in the ER witnessed by ER staff. Stool occult blood positive. Also SIRS positive in the ER and was given empiric IV antibiotics and IV crystalloids. Unable to obtain review of systems due to dementia. Imaging without identification of active bleed. Review of Systems 2 Review of Systems: Yes Unobtainable due to mental condition [facility] Medical History Systolic murmur Emphysematous cystitis Anemia Cholecystitis Esophagitis Weight loss Candidiasis, esophageal Nausea & vomiting Gallstones Abnormal nuclear stress test HLD (hyperlipidemia) HTN (hypertension) CVA, old, disturbances of vision (~09/2019) NSTEMI (non-ST elevated myocardial infarction) Dementia Coronary artery disease Family History Father No problems noted. Mother No problems noted. Surgical History Previous section H/O eye surgery History of esophagogastroduodenoscopy (EGD) Social History Household Members: Family and Unknown / Unable to assess Housing: Unknown / Unable to assess Are you a primary director of health care marketing to a significant other at home: No Do you presently have visiting nurse or other home services: No Unable to assess alcohol history related to: Unable to respond and Unknown Alcohol intake: never Comment: 1:1 Patient Tobacco Use Status: Former Tobacco user Tobacco use type: Smokeless Tobacco Years Smoked: Chews tobacco e-Cigarette/Vaping Use: Never Used Second Hand Smoke Exposure: No Advance Directives: Yes Advance Directives on File: Yes Advance Directives Date on File: 09/02/22 Do you have a plan to hurt others: No Plan service: No Current occupational status: retired and disabled 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 Meds Allergies Allergy/AdvReac Type Severity Reaction Status Date / Time No Known Allergies Allergy Unknown UNKNOWN Verified 02/01/25 18:36 [NO KNOWN ALLERGIES] Active Medications: Current Medications Piperacillin Sod/Tazobactam (Sod 4.5 gm/ Sodium Chloride) 100 mls @ 200 mls/hr IV Q8H [facility] Home Medications ?Medication ?Instructions ?Recorded ?Confirmed ?Last Taken ?Type amitriptyline 10 mg tablet 10 mg PO BEDTIME 08/02/20 12/21/24 Unknown History albuterol sulfate 90 mcg/actuation 2 puff PO Q4H PRN Wheezing 06/27/21 12/21/24 Unknown History aerosol inhaler mirtazapine 30 mg tablet 30 mg PO BEDTIME 06/27/21 12/21/24 Unknown History sertraline 25 mg tablet 1 tab PO DAILY 06/27/21 12/21/24 Unknown History clopidogrel 75 mg tablet 1 tab PO DAILY 09/02/22 12/21/24 Unknown History calcium 500 mg (as 1 tab PO BID 07/23/24 12/21/24 Unknown History carbonate)-vitamin D3 10 mcg (400 unit) tablet (Oyster Shell Calcium-Vitamin D3) melatonin 5 mg tablet 5 mg PO BEDTIME PRN insomnia 07/23/24 12/21/24 Unknown History multivitamin 1 tab PO QAM 12/21/24 12/21/24 Unknown History amitriptyline 10 mg tablet 10 mg PO BEDTIME 01/22/25 01/22/25 Unknown History atorvastatin 40 mg tablet 40 mg PO DAILY 01/22/25 01/22/25 Unknown History calcium 500 mg (as 1 tab PO BID 01/22/25 01/22/25 Unknown History carbonate)-vitamin D3 10 mcg (400 unit) tablet (Oyster Shell Calcium-Vitamin D3) clopidogrel 75 mg tablet 75 mg PO DAILY 01/22/25 01/22/25 Unknown History magnesium hydroxide 400 mg/5 mL 5 ml PO BID 01/22/25 01/22/25 Unknown History oral suspension (Milk of Magnesia) melatonin 5 mg tablet 5 mg PO BEDTIME PRN insomnia 01/22/25 01/22/25 Unknown History metoprolol succinate 25 mg 12.5 mg PO DAILY 01/22/25 01/22/25 Unknown History tablet,extended release 24 hr mirtazapine 30 mg tablet 30 mg PO BEDTIME 01/22/25 01/22/25 Unknown History multivitamin 1 tab PO DAILY 01/22/25 01/22/25 Unknown History pantoprazole 40 mg tablet,delayed 40 mg PO BID@0630,1630 01/22/25 01/22/25 Unknown History release sertraline 25 mg tablet 25 mg PO DAILY 01/22/25 01/22/25 Unknown History Physical Exam 2 Vital Signs and Narrative: Vital Signs: Last Vital Signs Temp 98.7 F 02/02/25 01:01 Pulse 70 02/02/25 01:01 Resp 17 02/02/25 01:01 BP 116/65 02/02/25 01:01 Pulse Ox 97 02/02/25 01:01 O2 Del Method Room Air 02/02/25 01:01 BMI result Body Mass Index 19.2 Elderly female lying in bed in no distress Neck supple, no JVD Regular rate and rhythm, S1-S2 heard Regular breath sounds bilaterally, no wheezing or crackles appreciated Abdomen with upper abdominal tenderness, no rigidity Patient is lethargic, nonverbal, malnourished Psych: Sleepy No pedal edema Results Labs 02/01/25 20:06 02/01/25 20:06 Labs: Laboratory Results - last 24 hr 02/01/25 02/01/25 02/01/25 20:06 22:31 22:45 MCV 96.5 MCH 32.4 MCHC 33.6 RDW 15.5 Plt Count 378 MPV 11.2 Immature Gran % (Auto) 0.3 Neut % (Auto) 71.2 Lymph % (Auto) 19.0 L [place] % (Auto) 8.4 Eos % (Auto) 0.6 Baso % (Auto) 0.5 Lymph # (Auto) 2.2 [place] # (Auto) 1.0 Eos # (Auto) 0.1 Baso # (Auto) 0.1 Abs Immat Gran (auto) 0.03 Absolute Neuts (auto) 8.3 Absolute Nucleated RBC 0.000 Nucleated RBC % (auto) 0.0 PT 11.9 INR 1.0 Anion Gap 17 Estim Creat Clear Calc 36.4 Estimated GFR > 60 Random Glucose 194 H Lactic Acid 3.2 H* Lactic Acid F/U @ 2Hr 2.3 H* Calcium 9.3 D Magnesium 2.0 Total Bilirubin 0.4 AST 23 ALT < 6 Alkaline Phosphatase 65 Total Protein 7.0 Albumin 3.5 Lipase 18 Urine Color Urine Appearance Urine pH Ur Specific [place] Urine Protein Urine Glucose (UA) Urine Ketones Urine Blood Urine Nitrite Ur Leukocyte Esterase Urine RBC Urine WBC Ur Squamous Epith Cells Urine Bacteria Hyaline Casts Stool Occult Blood POSITIVE Influenza Type A (PCR) NEGATIVE Influenza Type B (PCR) NEGATIVE RSV RNA Qual (PCR) NEGATIVE SARS-CoV-2 RNA (RT-PCR) NEGATIVE 02/02/25 00:22 MCV MCH MCHC RDW Plt Count MPV Immature Gran % (Auto) Neut % (Auto) Lymph % (Auto) [place] % (Auto) Eos % (Auto) Baso % (Auto) Lymph # (Auto) [place] # (Auto) Eos # (Auto) Baso # (Auto) Abs Immat Gran (auto) Absolute Neuts (auto) Absolute Nucleated RBC Nucleated RBC % (auto) PT INR Anion Gap Estim Creat Clear Calc Estimated GFR Random Glucose Lactic Acid Lactic Acid F/U @ 2Hr Calcium Magnesium Total Bilirubin AST ALT Alkaline Phosphatase Total Protein Albumin Lipase Urine Color Yellow Urine Appearance Cloudy Urine pH >= 9.0 Ur Specific [place] >= 1.030 H Urine Protein 30 (1+) H Urine Glucose (UA) Negative Urine Ketones Negative Urine Blood Negative Urine Nitrite Negative Ur Leukocyte Esterase Negative Urine RBC 0-2 Urine WBC 0-5 Ur Squamous Epith Cells 0-2 Urine Bacteria None Seen Hyaline Casts 0-2 Stool Occult Blood Influenza Type A (PCR) Influenza Type B (PCR) RSV RNA Qual (PCR) SARS-CoV-2 RNA (RT-PCR) Assessment and Plan (1) Acute upper GI bleed: Status: Acute Plan This is a 84-year-old female with pertinent history of Ellie glabrata esophagitis recently treated with caspofungin, recent admission for acute GI bleed with EGD findings of severe esophagitis, CVA, hypertension, mixed hyperlipidemia, CAD on clopidogrel, unspecified dementia with behavioral disturbance who was brought to the emergency department for evaluation of abdominal pain and coffee-ground emesis. #. Acute GI bleed: Coffee-ground emesis witnessed in the ER and stool occult positive. Will admit patient with cardiac monitoring. Initiating IV Protonix. Consulted Gastroenterology, appreciate assistance. Will keep patient NPO #. SIRS+: Initiating empiric IV Zosyn. Follow cultures #. Lactic acidosis: Due to sepsis. Trended down with fluid resuscitation. #. CAD/CVA: Hold clopidogrel and metoprolol in the setting of coffee-ground emesis. On statin #. Moderate protein calorie malnutrition: Nutrition consult once no longer NPO #. Hypertension: Hold beta-tameka #. Dementia with behavioral disturbance, unspecified: Resume mood stabilizers once no longer NPO. Maintain sleep-wake cycle Med rec pending DVT prophylaxis: Mechanical Full code Admit as inpatient and will require two night minimum hospital stay for close hemodynamic monitoring, monitoring of H&H (as above), which is not possible in a lesser acute setting. Gastroenterology consult pending Quality Stroke Does the patient have a stroke diagnosis?: No VTE Prior VTE?: No VTE Risk Level:: Medical - moderate - high VTE Device Contraindication: N/A - Device Ordered VTE Drug Contraindication: Treatment Not Indicated
[2025-02-02 01:23] LABS: ~Lactic Acid-LAB USE ONLY 2.1 mmol/L (0.5-2.0)
[2025-02-02] MEDS: Piperacillin Sodium/Tazobactam 4.5 GM in 0.9 % Sodium Chloride 100 ML IV ×3 (01:41→19:26)
[2025-02-02 04:54] LABS: Hematocrit 30.7 % (37.0-47.0); Hemoglobin 10.7 g/dl (12.0-16.0); Mean Corpuscular HGB Conc 34.9 g/dl (31.0-35.0); Mean Corpuscular Hemoglobin 33.1 pg (27.0-33.0); Mean Platelet Volume 10.8 fL (9.4-12.3); Platelet Count 353 X10*3/uL (160-400); Red Blood Count 3.23 X10*6/uL (4.20-5.50); Red Cell Distribution Width 15.5 % (11.0-16.0); White Blood Count 13.1 X10*3/uL (4.8-10.8)
[2025-02-02 05:11] LABS: Anion Gap 11 (12-20); Blood Urea Nitrogen 10 mg/dL (9-16); Calcium 8.4 mg/dL (8.4-10.2); Carbon Dioxide 22 mmol/L (22-29); Chloride 107 mmol/L (96-108); Creatinine Clr Calc Pharmacy 45.6; Estimated Glomerular Filt Rate > 60; Glucose Random 142 mg/dL (60-115); Potassium 3.5 mmol/L (3.3-5.1); Sodium 136 mmol/L (135-145)
--- NOTE | 2025-02-02 07:15 | PHA.MEDREC ---
Pharmacy Consult ? Medication Reconciliation Pharmacy has completed the medication reconciliation. Med rec done using discharge documentation and claims from 01/25/25. Patient and family are poor historians and language barrier makes it difficult to obtain history.
--- NOTE | 2025-02-02 07:59 | PC.NURSE ---
assumed care of patient at 0700, patient resting quietly in room, alert to self only. patient incontinent of urine despite purewick. patient cleaned up, new pads and linens. purewick replaced. patient sitting up in bed, resp even and unlabored. patient VSS, given warm blanket for comfort.
--- NOTE | 2025-02-02 11:11 | PC.NURSE ---
Report received. Taken over care at this time.
--- NOTE | 2025-02-02 11:34 | PC.NURSE ---
Verified with MASOOD Guzman. Informed her that pt. still awaiting GI consult and is NPO. Was informed to hold PO meds until pt. is seen.
--- NOTE | 2025-02-02 12:46 | MHC.CM.PN ---
Addendum entered by Sindy Francisco 02/02/25 15:22: PER [facility], PT IS ACTIVE WITH [facility], HAS A DOCTOR ASSISTANT VIA [facility] FOR 43.75 HRS PER WEEK AND ATTENDS [facility]. DCP: HOME RESUME [facility] AND DOCTOR ASSISTANT Original Note: PT FROM HOME. LIVES WITH SON, AND OTHER SON, DANIELLE VISITS DAILY PCP-JACKIE NAME DOCTOR ASSISTANT SERVICES DAILY HAS CANE/WALKR BUT STAYS IN BED MOSTLY IMM DELIVERED
--- NOTE | 2025-02-02 16:14 | P.CNGI_ITS ---
History of Present Illness Data of Consult Service Date: 02/02/25 Requesting physician: Karolina Bloom Primary Care Provider: Stef Greer MD HPI Reason for consult: coffee ground emesis 84-year-old female with history of Aaron glabrata esophagitis treated with caspofungin, recent admission for acute GI bleed with EGD findings of severe esophagitis, CVA, hypertension, mixed hyperlipidemia, CAD on clopidogrel, dementia who I am seeing for assessment for coffee ground emesis. Minimal hx from patient due to dementia, hx from staff and notes. Patient had upper abdominal pain and had coffee-ground emesis in the ER witnessed by ER staff. She was given empiric IV antibiotics and IV crystalloids. Unclear if she has been taking PPI at home. She had a CT scan without any active bleeding source but distended stomach with air fluid level and also hiatal hernia with thickened esophagus . HGB has been stable thus far and no further episodes of vomiting, she has expressed being hungry to staff. Last EGD 01/24/25 with moderate sized hiatal hernia and severe ulcerative esophagitis, with neg HSV< CMV and aaron stains. Review of Systems 2 Review of Systems: Yes Unobtainable due to mental status [facility] Past Medical History Medical History Systolic murmur Emphysematous cystitis Anemia Cholecystitis Esophagitis Weight loss Candidiasis, esophageal Nausea & vomiting Gallstones Abnormal nuclear stress test HLD (hyperlipidemia) HTN (hypertension) CVA, old, disturbances of vision (~09/2019) NSTEMI (non-ST elevated myocardial infarction) Dementia Coronary artery disease Family History Family History Father No problems noted. Mother No problems noted. Surgical History Surgical History Previous section H/O eye surgery History of esophagogastroduodenoscopy (EGD) Social History Social History Household Members: Family and Unknown / Unable to assess Housing: Unknown / Unable to assess Are you a primary care transport nurse to a significant other at home: No Do you presently have visiting nurse or other home services: No Unable to assess alcohol history related to: Unable to respond and Unknown Alcohol intake: never Comment: 1:1 Patient Tobacco Use Status: Former Tobacco user Tobacco use type: Smokeless Tobacco Years Smoked: Chews tobacco e-Cigarette/Vaping Use: Never Used Second Hand Smoke Exposure: No Advance Directives: Yes Advance Directives on File: Yes Advance Directives Date on File: 09/02/22 Do you have a plan to hurt others: No Plan service: No Current occupational status: retired and disabled 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 Meds Allergies Allergy/AdvReac Type Severity Reaction Status Date / Time No Known Allergies Allergy Unknown UNKNOWN Verified 02/01/25 18:36 [NO KNOWN ALLERGIES] Active Medications: Current Medications Acetaminophen (Acetaminophen 325 Mg Tablet) 650 mg PO Q6H PRN PRN Reason: Pain, Mild 1-3,fever,headache Albuterol Sulfate (Albuterol Sulfate 90 Mcg 8 Gm Inhaler) 2 puff INHALE Q4H PRN PRN Reason: Wheezing Amitriptyline HCl (Amitriptyline Hcl 10 Mg Tablet) 10 mg PO BEDTIME TAL Bisacodyl (Bisacodyl 5 Mg Tablet.Dr) 10 mg PO BEDTIME TAL Calcium Carbonate (Calcium Carbonate 750 Mg Tab.Chew) 750 mg PO Q4H PRN PRN Reason: Heartburn Piperacillin Sod/Tazobactam (Sod 4.5 gm/ Sodium Chloride) 100 mls @ 200 mls/hr IV Q8H [facility] Last Infusion: 02/02/25 11:20 Dose: Infused Magnesium Hydroxide (Milk Of Magnesia 30 Ml Oral.Susp) 30 ml PO DAILY PRN PRN Reason: Constipation Magnesium Hydroxide (Milk Of Magnesia 30 Ml Oral.Susp) 5 ml PO BID [facility] Melatonin (Melatonin 3 Mg Tablet) 6 mg PO BEDTIME PRN PRN Reason: Insomnia Metoprolol Succinate (Metoprolol Succinate Er 12.5 Mg Halftab.Er.24h) 12.5 mg PO DAILY [facility]; Protocol Mirtazapine (Mirtazapine 30 Mg Tablet) 30 mg PO BEDTIME [facility] Ondansetron HCl (Ondansetron Hcl 4 Mg/2 Ml Vial) 4 mg IVPUSH Q8H PRN PRN Reason: Nausea and Vomiting Pantoprazole Sodium (Pantoprazole Sodium 40 Mg/10 Ml Vial) 40 mg IVPUSH BID@0630,1630 [facility] Last Admin: 02/02/25 05:06 Dose: Not Given Sertraline HCl (Sertraline Hcl 25 Mg Tablet) 25 mg PO DAILY [facility] Sodium Chloride (0.9 % Sodium Chloride Flush 3 Ml Syringe) 3 ml IVFLUSH QSHIFT [facility] Last Admin: 02/02/25 08:00 Dose: Not Given Sucralfate (Sucralfate Oral Suspension 1 Gm/10 Ml Oral.Susp) 1 gm PO QIDACHS [facility] Last Admin: 02/02/25 11:33 Dose: Not Given Home Medications ?Medication ?Instructions ?Recorded ?Confirmed ?Last Taken ?Type albuterol sulfate 90 mcg/actuation 2 puff PO Q4H PRN Wheezing 06/27/21 02/02/25 Unknown History aerosol inhaler mirtazapine 30 mg tablet 30 mg PO BEDTIME 06/27/21 02/02/25 Unknown History sertraline 25 mg tablet 1 tab PO DAILY 06/27/21 02/02/25 Unknown History clopidogrel 75 mg tablet 1 tab PO DAILY 09/02/22 02/02/25 Unknown History calcium 500 mg (as 1 tab PO BID 07/23/24 02/02/25 Unknown History carbonate)-vitamin D3 10 mcg (400 unit) tablet (Oyster Shell Calcium-Vitamin D3) melatonin 5 mg tablet 5 mg PO BEDTIME PRN insomnia 07/23/24 02/02/25 Unknown History amitriptyline 10 mg tablet 10 mg PO BEDTIME 01/22/25 02/02/25 Unknown History atorvastatin 40 mg tablet 40 mg PO DAILY 01/22/25 02/02/25 Unknown History multivitamin 1 tab PO DAILY 01/22/25 02/02/25 Unknown History ondansetron 4 mg disintegrating 4 mg PO Q6H PRN nausea and vomiting 02/02/25 02/02/25 Unknown History tablet Physical Exam 2 Vital Signs: Vital Signs: Last Vital Signs Temp 97.1 F 02/02/25 12:31 Pulse 65 02/02/25 12:31 Resp 14 02/02/25 12:31 BP 96/41 L 02/02/25 12:31 Pulse Ox 100 02/02/25 12:31 O2 Del Method Room Air 02/02/25 12:31 BMI result Body Mass Index 19.2 EXAM: GENERAL: The patient is frail VITAL SIGNS:see workflow HEENT: Nonicteric sclerae, PERRLA, EOMI. Oropharynx clear. Moist mucous membranes. Conjunctivae appear well perfused. No thyroid mass. CHEST: Chest wall is nontender. HEART: Regular rate and rhythm without murmurs. LUNGS: Clear to auscultation bilaterally. ABDOMEN: Soft, positive bowel sounds, nontender, no organomegaly.no flank tenderness SKIN: No rash, no excessive bruising, petechiae, or purpura. NEUROLOGIC: Cranial nerves II-XII intact without motor/sensory deficit. Psych: unable to assess, Results Labs 02/02/25 04:49 02/02/25 04:49 Labs: Short CBC 02/01/25 02/02/25 Range/Units 20:06 04:49 WBC 11.6 H 13.1 H (4.8-10.8) X10*3/uL Hgb 11.9 L 10.7 L (12.0-16.0) g/dl Hct 35.4 L 30.7 L (37.0-47.0) % Plt Count 378 353 (160-400) X10*3/uL BMP 02/01/25 02/02/25 20:06 04:49 Sodium 138 136 Potassium 3.3 3.5 Chloride 100 107 Carbon Dioxide 24 22 BUN 11 10 Creatinine 0.70 0.56 Calcium 9.3 D 8.4 D Liver Function 02/01/25 Range/Units 20:06 Total Bilirubin 0.4 (0.0-1.0) mg/dL AST 23 (5-31) U/L ALT < 6 (0-31) U/L Alkaline Phosphatase 65 (39-117) U/L Albumin 3.5 (3.5-5.0) g/dL Urine 02/02/25 Range/Units 00:22 Urine Color Yellow Urine Appearance Cloudy Urine pH >= 9.0 (5.0-9.0) Ur Specific [place] >= 1.030 H (1.005-1.025) Urine Protein 30 (1+) H (Neg-Trace) mg/dL Urine Glucose (UA) Negative (Negative) mg/dL Imaging CT scan - abdomen: Attestation: I personally reviewed and interpreted this imaging study as follows: (distended stomach, esophagitis, wedge fracture, stenosis of illiac artery) Assessment and Plan (1) Acute upper GI bleed: Status: Acute Plan 1/ Coffee ground emesis, ith imaging revealing gastric distention, esophagitis and hiatal hernia, also recent EGD with severe erosive esophagitis HGB has been stable, she may have gastroparesis, also uncertain how compliant with PPI given her dementia PLAN: 1/ Low fiber and low fat diet for presumptive gastroparesis, 2/ can use low dose reglan if needed 3/ check with carers, make sure getting PPI daily, can add carafate bid as well- avoid nsaids, consider holding plavix indefinitely, unless sonal needed for cardiac issues 4/ reflux precautions 5/ hold on repeat EGD for the moment unless has active overt significant bleeding. Procedures Date of Service Date of Service: 02/02/25
--- NOTE | 2025-02-02 16:56 | P.EN_ITS ---
Event Note Date of Service: 02/02/25 Event Note: Seen and examined this morning History obtained with the assistance of a building energy retrofit technician Patient with history of dementia, no significant history able to be obtained Patient awake alert sitting up in bed This is a 84-year-old female with pertinent history of Ellie glabrata esophagitis recently treated with caspofungin, recent admission for acute GI bleed with EGD findings of severe esophagitis, CVA, hypertension, mixed hyperlipidemia, CAD on clopidogrel, unspecified dementia with behavioral disturbance who was brought to the emergency department for evaluation of abdominal pain and coffee-ground emesis. #. Acute GI bleed: Coffee-ground emesis witnessed in the ER and stool occult positive. contiue IV Protonix seen by GI - hold on repeat scope. Recommend high-dose PPI, Carafate. Okay to start clear liquid diet; advance to low-fiber/low fat diet for possible gastroparesis. Can use low-dose Reglan if needed Monitor CBC #. SIRS+: Initiating empiric IV Zosyn. Follow cultures UA negative, cxr negative wbc reactive from vomiting? can likely d/c abx in am if blood cultures negative #. Acute Lactic acidosis: no source of infection at this time ? due to dehydration/GIB lactic acided Trended down with fluid resuscitation. #. CAD/CVA: Hold clopidogrel in the setting of coffee-ground emesis. On statin Would hold Plavix indefinitely per GI #. Moderate protein calorie malnutrition: Nutrition consult #. Hypertension: Resume metoprolol in a.m. if blood pressure allows #. Dementia with behavioral disturbance, unspecified: Resume mood stabilizers. Maintain sleep-wake cycle Time Spent With Patient Time: Total time managing care of this patient today ____ minutes.
[2025-02-02] MEDS: 0.9 % Sodium Chloride Flush 3 ML SYRINGE IVFLUSH ×2 (17:30→22:02)
[2025-02-02] MEDS: Sucralfate Oral Suspension 1 GM/10 ML ORAL.SUSP PO ×2 (17:31→21:56)
--- NOTE | 2025-02-02 18:23 | PC.NURSE ---
Pt. linen and gown changed. Pt. cleaned up.
--- NOTE | 2025-02-02 19:29 | PM.EVENT ---
Event Note Date of Service: 02/02/25 Event Note: Talked to patient's granddaughter who interpreted for patient's son. Updated about the patient's condition. Family reinforced that they want the patient to be full code. Time Spent With Patient Time: Total time managing care of this patient today ____ minutes.
[2025-02-02] MEDS: bisacodyL 5 MG TABLET.DR 10 MG PO (21:55)
[2025-02-02] MEDS: Amitriptyline HCl 10 MG TABLET PO (21:55)
[2025-02-02] MEDS: Mirtazapine 30 MG TABLET PO (21:55)
[2025-02-02] MEDS: Milk of Magnesia 30 ML ORAL.SUSP 5 ML PO (21:57)
[2025-02-03] MEDS: Piperacillin Sodium/Tazobactam 4.5 GM in 0.9 % Sodium Chloride 100 ML IV ×2 (02:30→11:32)
[2025-02-03 03:36] VITALS: BP 120/63; PULSE 77; RESP 18; TEMP 36.3; O2SAT 100
[2025-02-03] MEDS: Pantoprazole Sodium 40 MG/10 ML VIAL IVPUSH ×2 (05:41→17:06)
[2025-02-03 07:22] LABS: Hematocrit 33.7 % (37.0-47.0); Hemoglobin 11.2 g/dl (12.0-16.0); Mean Corpuscular HGB Conc 33.2 g/dl (31.0-35.0); Mean Corpuscular Hemoglobin 32.3 pg (27.0-33.0); Mean Corpuscular Volume 97.1 fL (80.0-98.0); Mean Platelet Volume 11.3 fL (9.4-12.3); Platelet Count 318 X10*3/uL (160-400); Red Blood Count 3.47 X10*6/uL (4.20-5.50); Red Cell Distribution Width 15.4 % (11.0-16.0); White Blood Count 7.2 X10*3/uL (4.8-10.8)
[2025-02-03 07:37] VITALS: BP 107/52; PULSE 68; RESP 14; TEMP 36.6; O2SAT 99
[2025-02-03] MEDS: Metoprolol Succinate ER 12.5 MG HALFTAB.ER.24H PO (10:40)
[2025-02-03] MEDS: Sertraline HCL 25 MG TABLET PO (10:41)
[2025-02-03] MEDS: Milk of Magnesia 30 ML ORAL.SUSP 5 ML PO (10:41)
[2025-02-03] MEDS: Sucralfate Oral Suspension 1 GM/10 ML ORAL.SUSP PO ×3 (10:41→17:06)
[2025-02-03 11:19] VITALS: BP 109/53; PULSE 67; RESP 14; TEMP 36.1; O2SAT 97
[2025-02-03 15:17] VITALS: BP 107/57; PULSE 66; RESP 16; TEMP 36.7; O2SAT 96
[2025-02-03] MEDS: 0.9 % Sodium Chloride Flush 3 ML SYRINGE IVFLUSH (17:06)
--- NOTE | 2025-02-03 17:14 | PM.DS ---
DS: Providers Provider Date of Service: 02/03/25 Date of admission: 02/02/25 01:14 Date of discharge: 02/03/25 Primary care physician: Stef Greer MD Consults: 02/02/25 01:13 Consult to Gastroenterology Routine Consulting Provider: Krish Dixon Reason for consultation: GI bleed Attending physician on discharge: Luis Manuel Thomas Discharging clinician: Ruchi James DS: Diagnosis Discharge Diagnosis (1) Acute upper GI bleed: Status: Acute DS: Summary Hospital Course Hospital Course: From H&P on the day of admission This is a 84-year-old female with pertinent history of Ellie glabrata esophagitis recently treated with caspofungin, recent admission for acute GI bleed with EGD findings of severe esophagitis, CVA, hypertension, mixed hyperlipidemia, CAD on clopidogrel, unspecified dementia who was brought to the emergency department for evaluation of abdominal pain and coffee-ground emesis. Patient is a poor historian and is mostly nonverbal due to severe dementia at baseline. Apparently patient was complaining of upper abdominal discomfort prior to arrival. Patient noted to have coffee-ground emesis in the ER witnessed by ER staff. Stool occult blood positive. Also SIRS positive in the ER and was given empiric IV antibiotics and IV crystalloids. Unable to obtain review of systems due to dementia. Imaging without identification of active bleed. Acute GI bleed: Coffee-ground emesis witnessed in the ER and stool occult positive. Treated with IV PPI. Has had recent EGD with severe erosive esophagitis. H/H has been stable, no further episodes of bleeding since admission. seen by GI - recommended against repeating scope. Recommend high-dose PPI, Carafate. Okay to start clear liquid diet; advance to low-fiber/low fat diet for possible gastroparesis. Recommended to continue reflux precautions. Also recommended to hold Plavix indefinitely. SIRS+: Patient had low-grade fever x1 in the emergency department 100.7, no recurrent fever. Leukocytosis possibly reactive due to vomiting, resolved. No source of infection identified. White blood cell count normalized. Urinalysis, chest x-ray negative belly CT with no acute intra-abdominal pathology. Was treated with empiric antibiotics, blood cultures have returned negative, we will discontinue antibiotics Acute Lactic acidosis: no source of infection at this time ? due to dehydration/GIB. lactic acid Trended down with fluid resuscitation. CAD/CVA: Hold clopidogrel in the setting of coffee-ground emesis. On statin. Would hold Plavix indefinitely per GI. Per patient's son she has no history of stent placement. Recommend discontinue Plavix Dementia with behavioral disturbance, unspecified: Resume mood stabilizers. Maintain sleep-wake cycle. Patient would benefit from returning home to comfortable environment to prevent agitation, delirium. Above discussed in detail with patient's son at the bedside. He is in agreement Time Attestation Discharge Coordination Time (in mins): 36 Quality: Safe Use of Opioids Does Pt have an Active Cancer Diagnosis on the Problem List?: No Quality: Stroke Does the patient have a stroke diagnosis?: No Physical Exam Vital Signs: Vital Signs: Last Vital Signs Temp 98.1 F 02/03/25 15:17 Pulse 66 02/03/25 15:17 Resp 16 02/03/25 15:17 BP 107/57 L 02/03/25 15:17 Pulse Ox 96 02/03/25 15:17 O2 Del Method Room Air 02/03/25 15:17 BMI result Body Mass Index 19.1 Const: General: cooperative, comfortable, alert, awake and confusion Orientation/consciousness: oriented to person and confusion Resp: Effort & Inspection: normal respiratory effort and able to speak in complete sentences GI: Inspection: No distended Palpation (GI): Soft to palpation and nontender Neuro: General: oriented to person and confusion DS: Data Data Completed and Pending Completed studies during hospitalization [Text1]: Procedures Excision of Esophagus, Via Natural or Artificial Opening Endoscopic, Diagnostic (08/04/24) Excision of Lower Esophagus, Via Natural or Artificial Opening Endoscopic, Diagnostic (01/21/25) Excision of Stomach, Pylorus, Via Natural or Artificial Opening Endoscopic, Diagnostic (08/04/24) Extraction of Esophagus, Via Natural or Artificial Opening Endoscopic, Diagnostic (08/04/24) Insertion of Infusion Device into Left Brachial Vein, Percutaneous Approach (12/21/24) Transfusion of Nonautologous Red Blood Cells into Peripheral Vein, Percutaneous Approach (01/21/25) Labs on day of discharge: Laboratory Results - last 24 hr 02/03/25 07:03 WBC 7.2 RBC 3.47 L Hgb 11.2 L Hct 33.7 L MCV 97.1 MCH 32.3 MCHC 33.2 RDW 15.4 Plt Count 318 MPV 11.3 Absolute Nucleated RBC 0.000 Nucleated RBC % (auto) 0.0 Preliminary micro results at discharge 02/01/25 19:41 Blood Culture - Preliminary Blood - Venous No growth after 24 hours. 02/01/25 19:41 Blood Culture - Preliminary Blood - Venous No growth after 24 hours. Discharge Plan Discharge Anticipated Discharge Date/Time: 02/03/25 17:24 Patient Disposition: Home, Self-Care Discharge Diagnosis: upper gi bleeding Referrals: Name,MD Stef [Primary Care Provider] - 1 Week Discharge Medications: Continued mirtazapine 30 mg tablet 30 mg PO BEDTIME sertraline 25 mg tablet 1 tab PO DAILY albuterol sulfate 90 mcg/actuation HFA aerosol inhaler 2 puff PO Q4H PRN (Reason: Wheezing) calcium carbonate-vitamin D3 [Oyster Shell Calcium-Vit D3] 500 mg-10 mcg (400 unit) tablet 1 tab PO BID melatonin 5 mg tablet 5 mg PO BEDTIME PRN (Reason: insomnia) pantoprazole 40 mg tablet,delayed release (DR/EC) 1 tab PO BID@0630,1630 Qty: 180 0RF metoprolol succinate 25 mg tablet extended release 24 hr 12.5 mg PO DAILY Qty: 90 1RF bisacodyl [Dulcolax (bisacodyl)] 5 mg tablet,delayed release (DR/EC) 10 mg PO BEDTIME 2 Days Qty: 4 0RF magnesium hydroxide [Milk of Magnesia] 400 mg/5 mL suspension 5 ml PO BID Qty: 355 0RF multivitamin Tablet 1 tab PO DAILY atorvastatin 40 mg tablet 40 mg PO DAILY amitriptyline 10 mg tablet 10 mg PO BEDTIME sucralfate 100 mg/mL Suspension 1 g PO QIDACHS Qty: 1000 1RF ondansetron 4 mg tablet,disintegrating 4 mg PO Q6H PRN (Reason: nausea and vomiting) Discontinued clopidogrel 75 mg tablet 1 tab PO DAILY Discharge Orders: Discharge Order (Routine); Ordered 02/03/25 Ordered By: Ruchi James Activity on Discharge: As tolerated Stand Alone Forms: Patient Portal Discharge page Print Language: Unable To Collect Care Plan Goals: see below Health Concerns: Upper GI bleeding Plan of Treatment: Continue PPI, Carafate Avoid NSAIDs like ibuprofen, Motrin etc. Stop Plavix Assessment: See discharge summary
--- NOTE | 2025-02-03 17:26 | P.CDIM_ITS ---
PROVIDER RESPONSE TEXT: To clarify, the appropriate diagnosis supported by the clinical indicators: Sepsis has been ruled out and a more appropriate diagnosis for this patient's condition is QUERY TEXT: PHYSICIAN'S DOCUMENTATION REQUEST Date of Query: 02/03/2025 12:40 PM EDT Patient Name: Elisa Weaver Admit Date: 02/02/2025 Dear Ruchi CORREIA, A review of the medical record indicates additional documentation may be needed. Please review below and update the documentation accordingly. Clarity of two diagnosis that are documented within the medical record: H&P 02/02/25 - SIRS positive in the Ed and was given empiric IV antibiotics and crystalloids. SIRS +: Initiating empiric IV Zosyn. Lactic acidosis: Due to Sepsis. Trended down with fluid resuscitation. WBC 13.0 LA 3.2/2.3 TEMP 100.7 HR 102 RR 25 BP 142/96 Please clarify the documentation Sepsis/ Sirs: Sepsis remains a known or suspected condition for this patient and is further supported by Sepsis has been ruled out and a more appropriate diagnosis for this patient's condition is Sirs Other (explain) Clinically unable to determine (explain) Thank you, Fernanda Sauceda, CCS, CDIS Use of terms such as suspected, likely, concern for, or probable (associated with a specific diagnosi s that is being evaluated, monitored, or treated as if it exists) are acceptable and can be coded in the inpatient se tting, when documented at the time of discharge. Please use your independent medical judgment in providing your response. THIS QUERY IS PART OF THE PERMANENT MEDICAL RECORD
== END 2025-02-03 19:26 | disposition home or self-care (01) | DRG 381 ==
LOC: HO.ED 02-02 01:07 → HO.EDOVER 02-02 01:29 → HO.IMC 02-02 16:37 → HO.EDOVER 02-02 16:50 → HO.IMC 02-02 16:58
PROVIDERS: Physician Assistant Medical; Admitting Provider Student in an Organized Health Care Education/Training Program; Emergency Provider Emergency Medicine; PCP Internal Medicine Geriatric Medicine; Visit Provider Physician Assistant Medical
DX: K22.11 Ulcer of esophagus with bleeding (principal); E44.0 Moderate protein-calorie malnutrition; E87.21 Acute metabolic acidosis; Z68.1 Body mass index [BMI] 19.9 or less, adult; F03.918 Unspecified dementia, unspecified severity, with other behavioral disturbance; R65.10 Systemic inflammatory response syndrome (SIRS) of non-infectious origin without acute organ dysfunction; K44.9 Diaphragmatic hernia without obstruction or gangrene; E78.2 Mixed hyperlipidemia; I10 Essential (primary) hypertension; K31.84 Gastroparesis; I25.10 Atherosclerotic heart disease of native coronary artery without angina pectoris; Z20.822 Contact with and (suspected) exposure to COVID-19; Z86.73 Personal history of transient ischemic attack (TIA), and cerebral infarction without residual deficits; Z79.02 Long term (current) use of antithrombotics/antiplatelets; Z79.899 Other long term (current) drug therapy
CPT/HCPCS: 0241U; 36415; 71045; 74178; 80048; 80053; 81001; 82272; 83605; 83690; 83735; 85025; 85027; 85610; 87040; 99285; J0696; J2405; J2470; J2543; Q9967

== ENCOUNTER → 2025-02-01 19:08 | Outpatient (BNV) | payer OTHER, SELFPAY | PROVIDERS: Emergency Provider Emergency Medicine; PCP Internal Medicine Geriatric Medicine; Visit Provider Student in an Organized Health Care Education/Training Program | DX: R50.9 Fever, unspecified (principal) | CPT/HCPCS: 71045 ==

== ENCOUNTER → 2025-02-02 01:14 | Outpatient (BNV) | payer OTHER, SELFPAY | PROVIDERS: Admitting Provider Student in an Organized Health Care Education/Training Program; Emergency Provider Emergency Medicine; PCP Internal Medicine Geriatric Medicine; Visit Provider Internal Medicine Gastroenterology | DX: K92.2 Gastrointestinal hemorrhage, unspecified (principal) | CPT/HCPCS: 99223 ==

== ENCOUNTER → 2025-02-02 01:14 | Outpatient (BNV) | payer OTHER, SELFPAY | PROVIDERS: Admitting Provider Student in an Organized Health Care Education/Training Program; Emergency Provider Emergency Medicine; PCP Internal Medicine Geriatric Medicine; Visit Provider Student in an Organized Health Care Education/Training Program | DX: K92.2 Gastrointestinal hemorrhage, unspecified (principal) | CPT/HCPCS: 99222; 99239; 99499 ==

== ENCOUNTER 2025-03-31 11:14 | Emergency (ER) | payer OTHER, SELFPAY ==
[2025-03-31] VITALS (10 sets, daily range): BP systolic 108–158; BP diastolic 62–111; PULSE 61–102; RESP 14–18; TEMP 36.2–36.9; O2SAT 95–100; BMI 20.2
--- NOTE | ~2025-03-31 | XR_ITS ---
EXAMINATION: XR CHEST CLINICAL INFORMATION: chest pain COMPARISON: February 01, 2025 TECHNIQUE: Frontal view of the chest was obtained. FINDINGS: Pulmonary reticular pattern. No consolidation, pleural fissure pneumothorax. Cardiomediastinal silhouette is straight calcified mitral valve and aortic arch. Osteopenia versus osteoporosis. S-shaped curvature of the thoracolumbar spine. Multilevel spondylosis. Degenerative changes in the shoulders. Focal calcifications in the inferior left glenohumeral joint. 2 mm calcification at the right supraspinatus tendon insertion. XR/XR chest 1V IMPRESSION: Chronic interstitial lung disease without acute airspace disease. 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 Calcific tendinosis versus tendinopathy, right supraspinatus. Calcified mitral valve. Electronically signed by: Abdirashid Villarreal MD 03/31/2025 02:14 PM EDT
--- NOTE | 2025-03-31 11:33 | ED.GENADULT ---
HPI - General Adult General Chief complaint: Abdominal Pain Stated complaint: ABD PAIN X 3 DAYS,VOMITING Time Seen by Provider: 03/31/25 11:33 History of Present Illness ED Provider: Jonathan BEATTY narrative: The patient is an 84-year-old female with a history of esophagitis, previous stroke, hypertension, mixed hyperlipidemia, coronary artery disease, an unspecified dementia, who comes to the emergency department by ambulance because of upper abdominal pain and vomiting. The patient is a very poor historian and was not able to tell me how long she has been experiencing her upper abdominal pain. I called her son with whom she lives. He did not speak Burmese but there was another relative at home who helped with interpretation. The son said, through the other relative, at the patient had begun to complain of abdominal pain yesterday but refused to come to the hospital. During the night last night the patient developed vomiting. He says that the emesis looked like ?burgundy. He says that he had given her grape juice before she started vomiting. There is no report of any black stools. The son says that her stools has been very hard recently. The patient was most recently hospitalized 2 months ago. She was hospitalized from February 02 through February 03 for some degree of an upper GI bleed. She had had a recent upper endoscopy on 01/22/2025 which showed severe erosive esophagitis. Upper endoscopy was not repeated at her most recent hospitalization. Recommendations were to continue PPI and sucralfate. She had been on clopidogrel because of her coronary artery disease. This was stopped. Related Data Home Medications ?Medication ?Instructions ?Recorded ?Confirmed albuterol sulfate 90 mcg/actuation 2 puff PO Q4H PRN Wheezing 06/27/21 02/02/25 aerosol inhaler mirtazapine 30 mg tablet 30 mg PO BEDTIME 06/27/21 02/02/25 sertraline 25 mg tablet 1 tab PO DAILY 06/27/21 02/02/25 calcium 500 mg (as 1 tab PO BID 07/23/24 02/02/25 carbonate)-vitamin D3 10 mcg (400 unit) tablet (Oyster Shell Calcium-Vitamin D3) melatonin 5 mg tablet 5 mg PO BEDTIME PRN insomnia 07/23/24 02/02/25 amitriptyline 10 mg tablet 10 mg PO BEDTIME 04/20/25 05/01/25 atorvastatin 40 mg tablet 40 mg PO DAILY 01/22/25 02/02/25 multivitamin 1 tab PO DAILY 01/22/25 02/02/25 ondansetron 4 mg disintegrating 4 mg PO Q6H PRN nausea and vomiting 02/02/25 02/02/25 tablet Previous Rx's ?Medication ?Instructions ?Recorded pantoprazole 40 mg tablet,delayed 1 tab PO BID@0630,1630 #180 tabs 08/09/24 release metoprolol succinate 25 mg 12.5 mg (1/2 x 25 mg) PO DAILY #90 10/20/24 tablet,extended release 24 hr tabs bisacodyl 5 mg tablet,delayed 10 mg (2 x 5 mg) PO BEDTIME 2 days 01/08/25 release (Dulcolax (bisacodyl)) #4 tabs magnesium hydroxide 400 mg/5 mL 5 ml PO BID #355 mL 01/08/25 oral suspension (Milk of Magnesia) sucralfate 100 mg/mL oral 1 g (10 mL) PO QIDACHS #1,000 mL 01/25/25 suspension melatonin 5 mg capsule 5 mg PO BEDTIME PRN sleep #30 caps 03/31/25 sucralfate 100 mg/mL oral 10 ml PO QID #1,000 mL 03/31/25 suspension Allergies Allergy/AdvReac Type Severity Reaction Status Date / Time No Known Allergies (NO KNOWN Allergy Unknown UNKNOWN Verified 03/31/25 11:26 ALLERGIES) Review of Systems Review of Systems: Yes all other systems are reviewed and are negative [facility] Past Medical History Medical History Systolic murmur Emphysematous cystitis Anemia Cholecystitis Esophagitis Weight loss Candidiasis, esophageal Nausea & vomiting Gallstones Abnormal nuclear stress test HLD (hyperlipidemia) HTN (hypertension) CVA, old, disturbances of vision (~09/2019) NSTEMI (non-ST elevated myocardial infarction) Dementia Coronary artery disease Surgical History Previous section H/O eye surgery History of esophagogastroduodenoscopy (EGD) Family History Family History Father No problems noted. Mother No problems noted. Social History Social History Household Members: Family Housing: Apartment Are you a primary home care assistant to a significant other at home: No Do you presently have visiting nurse or other home services: No Unable to assess alcohol history related to: Unable to respond and Unknown Alcohol intake: never Comment: 1:1 sitter Patient Tobacco Use Status: Former Tobacco user Tobacco use type: Smokeless Tobacco Years Smoked: Chews tobacco e-Cigarette/Vaping Use: Never Used Second Hand Smoke Exposure: No Advance Directives: Yes Advance Directives on File: Yes Advance Directives Date on File: 09/02/22 Do you have a plan to hurt others: No Plan service: No Current occupational status: retired and disabled 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 She weighs 45 kilos. She looks quite frail and chronically ill. She answered only very simple questions. There was some obvious brown emesis on her shirt. She did not seem in obvious discomfort or respiratory distress although she complained of epigastric pain. HENMT Other: Face is symmetrical. Mucous membranes moist. Eyes Other: There was some discharge at the right eye that was quite clear. Pupils are round equal, extraocular movements are intact, conjunctivae are clear. Neck Neck: Yes normal visual inspection, Yes full ROM and Yes no JVD Resp Effort & Inspection: normal respiratory effort Auscultation: clear to auscultation bilaterally Cardio Other: The patient has a regular rate and rhythm. She has a somewhat blowing systolic murmur. GI Other: The patient is tender in the epigastrium. The abdomen is otherwise soft and nontender. Skin Other: Skin is pale and dry Neuro Other: The patient was awake and seems fairly alert. She was interviewed with a boot lace cutter machine. Her face is symmetrical. Eye movements are intact. Speech was clear although she does not seem much. She seems to have symmetrical strength and function of her extremities. She seems neurologically intact although she has some degree of dementia. Extrem Other: There is no calf swelling or tenderness. No asymmetry. No peripheral edema. Medications Administered Discontinued Medications Generic Name Dose Route Start Last Admin Trade Name Freq PRN Reason Stop Dose Admin Sodium Chloride 500 mls @ 500 mls/hr 03/31/25 15:30 03/31/25 17:48 Ns IV 03/31/25 16:29 Infused .Q1H TAL Infusion Ondansetron HCl 4 mg 03/31/25 15:26 03/31/25 15:47 Ondansetron Hcl 4 Mg/2 Ml Vial IVPUSH 03/31/25 15:27 4 mg ONCE ONE Administration Pantoprazole Sodium 80 mg 03/31/25 15:26 03/31/25 15:47 Pantoprazole Sodium 40 Mg/10 Ml Vial IVPUSH 03/31/25 15:27 80 mg ONCE ONE Administration Sucralfate 1 gm 03/31/25 17:10 03/31/25 17:21 Sucralfate Oral Suspension 1 Gm/10 Ml Oral.Susp PO 03/31/25 17:11 1 gm ONCE ONE Administration Medical Decision Making Medical Decision Making [facility] Narrative: The patient is an 84-year-old woman who has a history of gastritis and esophagitis. She was hospitalized in December for candidal esophagitis. She was hospitalized in January again for esophagitis. She was then hospitalized briefly in early February, almost 2 months ago, for an episode of coffee-ground emesis. No significant changes were made to her regimen at her last hospitalization. She is on pantoprazole and sucralfate. On this occasion the patient developed some epigastric pain yesterday and then some vomiting this morning. She seemed to have brownish emesis. She did not have ongoing emesis in the emergency department. On rectal exam she has brown, non melenic appearing stool. It is trace heme positive. Her labs today seem surprisingly good. Her hemoglobin is 13.9. This is considerably higher than any of her hemoglobins recently. On her metabolic panel her BUN is not elevated. Her BUN today is 12. This would argue against any significant GI bleeding. In the emergency room today the patient was given a dose of IV pantoprazole and a dose of IV ondansetron. She was given IV fluids. She seemed to feel better. She was given a dose of sucralfate orally. She then seemed to have significant improvement in her epigastric abdominal pain. She was offered hospitalization but indicates that she will be much happier at home. I spoke to her son who says that they have run out of sucralfate and melatonin and requested a refill these prescriptions. Ultimately, given the absence of any ongoing vomiting in the emergency department, the absence of melena on rectal exam, a higher than previous hemoglobin and a normal BUN I think that the likelihood of a significant acute upper GI bleed is low and therefore I think discharge is not unreasonable. This is especially the case given how brief her last hospitalization for similar presentation was in early February. We will arrange an ambulance to return the patient home. She should follow up with her PCP and with her medical geneticist, Dr. Aragon. She should return if worse. Lab Data 03/31/25 14:54 03/31/25 14:54 Labs: Lab Results 03/31/25 03/31/25 03/31/25 Range/Units 14:54 15:05 16:54 WBC 10.6 (4.8-10.8) X10*3/uL RBC 4.36 D (4.20-5.50) X10*6/uL Hgb 13.9 D (12.0-16.0) g/dl Hct 40.5 D (37.0-47.0) % MCV 92.9 (80.0-98.0) fL MCH 31.9 (27.0-33.0) pg MCHC 34.3 (31.0-35.0) g/dl RDW 13.6 (11.0-16.0) % Plt Count 421 H D (160-400) X10*3/uL MPV 10.9 (9.4-12.3) fL Immature Gran % (Auto) 0.2 (0.0-0.4) % Neut % (Auto) 86.5 H (45-73) % Lymph % (Auto) 10.2 L (20-40) % [facility] % (Auto) 3.0 (2-11) % Eos % (Auto) 0.0 (0-4) % Baso % (Auto) 0.1 (0-2) % Lymph # (Auto) 1.1 L (1.2-4.9) X10*3/uL [facility] # (Auto) 0.3 (0.1-1.2) X10*3/uL Eos # (Auto) 0.0 (0.0-0.4) X10*3/uL Baso # (Auto) 0.0 (0.0-0.2) X10*3/uL Abs Immat Gran (auto) 0.02 (0.00-0.03) X10*3/uL Absolute Neuts (auto) 9.1 H (2.0-8.3) x10*3/uL Absolute Nucleated RBC 0.000 (0.0-0.012) X10*3/uL Nucleated RBC % (auto) 0.0 (0.0-0.2) /100WBC Sodium 141 (135-145) mmol/L Potassium 3.4 (3.3-5.1) mmol/L Chloride 90 L (96-108) mmol/L Carbon Dioxide 34 H (22-29) mmol/L Anion Gap 20 (12-20) BUN 12 (9-16) mg/dL Creatinine 0.72 (0.5-1.4) mg/dL Estim Creat Clear Calc 39.6 Estimated GFR > 60 Random Glucose 193 H (60-115) mg/dL Calcium 10.7 H D (8.4-10.2) mg/dL Magnesium 2.1 (1.6-2.6) mg/dL Total Bilirubin 0.3 (0.0-1.0) mg/dL Direct Bilirubin 0.1 (0.0-0.5) mg/dL AST 28 (5-31) U/L ALT 13 (0-31) U/L Alkaline Phosphatase 75 (39-117) U/L Troponin I High Sens 7.7 (<3.5-17.0) ng/L C-Reactive Protein 0.73 H (< or = 0.50) mg/dL Total Protein 9.1 H (6.5-8.0) g/dL Albumin 5.0 (3.5-5.0) g/dL Lipase 13 (8-78) U/L Stool Occult Blood POSITIVE (NEGATIVE) Blood Type O Positive Antibody Screen NEGATIVE Discharge Plan Discharge Clinical Impression: Vomiting, Epigastric pain, Gastritis Patient Disposition: Home, Self-Care Additional Instructions: Please make sure that you take your pantoprazole daily. Also please resume sucralfate 4 times a day as prescribed. I have sent a new prescription for sucralfate because I believe you have run out of it. I have also sent a prescription for melatonin because I believe you have run out of that as well. Please follow up next week with your regular doctor. Please also follow up with your medical geneticist, Dr. Aragon. Return to the emergency room if you feel significantly worse. Prescriptions: New melatonin 5 mg capsule 5 mg PO BEDTIME PRN (Reason: sleep) Qty: 30 0RF sucralfate 100 mg/mL suspension 10 ml PO QID Qty: 1000 0RF Rx Instructions: swish in mouth and swallow; use after food/drink No Action mirtazapine 30 mg tablet 30 mg PO BEDTIME sertraline 25 mg tablet 1 tab PO DAILY albuterol sulfate 90 mcg/actuation HFA aerosol inhaler 2 puff PO Q4H PRN (Reason: Wheezing) calcium carbonate-vitamin D3 [Oyster Shell Calcium-Vit D3] 500 mg-10 mcg (400 unit) tablet 1 tab PO BID melatonin 5 mg tablet 5 mg PO BEDTIME PRN (Reason: insomnia) pantoprazole 40 mg tablet,delayed release (DR/EC) 1 tab PO BID@0630,1630 Qty: 180 0RF metoprolol succinate 25 mg tablet extended release 24 hr 12.5 mg PO DAILY Qty: 90 1RF bisacodyl [Dulcolax (bisacodyl)] 5 mg tablet,delayed release (DR/EC) 10 mg PO BEDTIME 2 Days Qty: 4 0RF magnesium hydroxide [Milk of Magnesia] 400 mg/5 mL suspension 5 ml PO BID Qty: 355 0RF multivitamin Tablet 1 tab PO DAILY atorvastatin 40 mg tablet 40 mg PO DAILY amitriptyline 10 mg tablet 10 mg PO BEDTIME sucralfate 100 mg/mL Suspension 1 g PO QIDACHS Qty: 1000 1RF ondansetron 4 mg tablet,disintegrating 4 mg PO Q6H PRN (Reason: nausea and vomiting) Referrals: [facility] [Provider Group] Name,MD Stef [Primary Care Provider, Internal Medicine] Print Language: Unable To Collect
--- OUTSIDE RECORDS SUMMARY | 2025-03-31 12:57 | XMS_ITS | Encounter Summary ---
Author Organization [employer] Address [address] [place] [address] Care Team Providers Care Production Zone Leader Name Role Phone Name, Stef ESTRADA Primary Care Provider [phone] Reason for Visit * Reason Onset Date Comments Paperwork/Forms 04/18/2024 Encounter Details Date Type Department Care Team ([facility] Contact Info) Description 04/18/2024 Telephone [facility] [address], [place] [id number] Name, MD Stef [address] [place] [address] Paperwork/Forms Social History Tobacco Use Types Packs/Day [...] PM EDT Tc from Emily, nurse at [facility] requesting paperwork to be sign as soon as possible in order to them be able to admit pt into services. Please contact Emily at [phone] if any question. documented in this encounter Plan of Treatment Not on file documented as of this encounter Visit Diagnoses Not on filedocumented in this encounter Additional Health Concerns Assessment Noted Time PHQ-9 Depression Total Score: 0 01/28/20 10:49 AM EDT documented as of this encounter Care Teams Production Zone Leader Relationship Specialty Start Date End Date Name, MD Stef [address] [place] [id number] PCP - General Family Medicine 01/28/16 Yuliya Amrit 07/27/24 documented as of this encounter
--- NOTE | 2025-03-31 13:40 | PC.NURSE ---
Patient is a 84-year-old female with pertinent history of Ellie glabrata esophagitis recently treated with caspofungin, recent admission for acute GI bleed with EGD findings of severe esophagitis, CVA, hypertension, mixed hyperlipidemia, CAD on clopidogrel, unspecified dementia who presents to the emergency department for evaluation ofepigastric pain and nausea. Patient is a poor historian and is mostly nonverbal due to severe dementia at baseline. Lungs clear bilat. Respirations even and non-labored. Abdomen soft, distended with positve bowel sounds. c/o epigastric pain. Positive pedal pulses with no edema.
--- NOTE | 2025-03-31 13:58 | ECG_ITS ---
Test Reason : vomit Blood Pressure : */* mmHG Vent. Rate : 96 BPM Atrial Rate : 96 BPM P-R Int : 116 ms QRS Dur : 88 ms QT Int : 402 ms P-R-T Axes : 72 45 72 degrees QTcB Int : 507 ms Normal sinus rhythm cannot exclude old Anterolateral infarct (cited on or before 18-Oct-2024) Abnormal ECG When compared with ECG of 21-Dec-2024 20:29, Premature ventricular complexes are no longer Present Referred By: Emiliano Castillo Electronically Signed By: ABBY GRIMM
[2025-03-31 14:58] LABS: MANUAL DIFF FLAG NO
[2025-03-31 15:00] LABS: Basophils Percent Auto 0.1 % (0-2); Hematocrit 40.5 % (37.0-47.0); Hemoglobin 13.9 g/dl (12.0-16.0); Imm Gran Abs Auto 0.02 X10*3/uL (0.00-0.03); Imm Gran Pct Auto 0.2 % (0.0-0.4); Lymphocytes Absolute Auto 1.1 X10*3/uL (1.2-4.9); Lymphocytes Percent Auto 10.2 % (20-40); Mean Corpuscular HGB Conc 34.3 g/dl (31.0-35.0); Mean Corpuscular Hemoglobin 31.9 pg (27.0-33.0); Mean Corpuscular Volume 92.9 fL (80.0-98.0); Mean Platelet Volume 10.9 fL (9.4-12.3); Monocytes Absolute Auto 0.3 X10*3/uL (0.1-1.2); Neutrophils Absolute Auto 9.1 x10*3/uL (2.0-8.3); Neutrophils Percent Auto 86.5 % (45-73); Platelet Count 421 X10*3/uL (160-400); Red Blood Count 4.36 X10*6/uL (4.20-5.50); Red Cell Distribution Width 13.6 % (11.0-16.0); White Blood Count 10.6 X10*3/uL (4.8-10.8)
[2025-03-31 15:18] LABS: Alanine Aminotransferase 13 U/L (0-31); Alkaline Phosphatase 75 U/L (39-117); Anion Gap 20 (12-20); Aspartate Amino Transferase 28 U/L (5-31); Bilirubin Direct 0.1 mg/dL (0.0-0.5); Bilirubin Total 0.3 mg/dL (0.0-1.0); Blood Urea Nitrogen 12 mg/dL (9-16); C Reactive Protein 0.73 mg/dL (< or = 0.50); Calcium 10.7 mg/dL (8.4-10.2); Carbon Dioxide 34 mmol/L (22-29); Chloride 90 mmol/L (96-108); Creatinine Clr Calc Pharmacy 39.6; Estimated Glomerular Filt Rate > 60; Glucose Random 193 mg/dL (60-115); Lipase 13 U/L (8-78); Magnesium 2.1 mg/dL (1.6-2.6); Potassium 3.4 mmol/L (3.3-5.1); Sodium 141 mmol/L (135-145); Total Protein 9.1 g/dL (6.5-8.0)
[2025-03-31 15:26] LABS: Troponin-I High Sensitivity 7.7 ng/L (<3.5-17.0)
[2025-03-31] MEDS: Pantoprazole Sodium 40 MG/10 ML VIAL 80 MG IVPUSH (15:47)
[2025-03-31] MEDS: ondansetron HCL 4 MG/2 ML VIAL IVPUSH (15:47)
[2025-03-31] MEDS: 0.9 % Sodium Chloride 500 ML IV (15:50)
--- NOTE | 2025-03-31 16:21 | PC.NURSE ---
Rectal exam performed by the provider. Appears positive. Medication offered for abdominal pain which patient refused.
[2025-03-31 17:06] LABS: OBS Int Ctl Valid YES; OBS1 POSITIVE (NEGATIVE)
[2025-03-31] MEDS: Sucralfate Oral Suspension 1 GM/10 ML ORAL.SUSP PO (17:21)
--- NOTE | 2025-03-31 22:50 | PC.NURSE ---
call placed to granddaughter as pt is en route.
== END 2025-03-31 22:59 | disposition home or self-care (01) ==
PROVIDERS: Emergency Provider Emergency Medicine; PCP Internal Medicine Geriatric Medicine
DX: R11.2 Nausea with vomiting, unspecified (principal); K29.70 Gastritis, unspecified, without bleeding; R10.13 Epigastric pain; R10.10 Upper abdominal pain, unspecified; I10 Essential (primary) hypertension; E78.5 Hyperlipidemia, unspecified; Z79.899 Other long term (current) drug therapy
CPT/HCPCS: 36415; 71045; 80048; 80076; 82272; 83690; 83735; 84484; 85025; 86140; 86850; 86900; 86901; 93005; 96361; 96374; 96375; 99284; 99285; J2405; J2470

== ENCOUNTER → 2025-03-31 13:58 | Outpatient (BNV) | payer OTHER, SELFPAY | PROVIDERS: Emergency Provider Emergency Medicine; PCP Internal Medicine Geriatric Medicine; Visit Provider Internal Medicine | DX: R94.31 Abnormal electrocardiogram [ECG] [EKG] (principal); R11.10 Vomiting, unspecified | CPT/HCPCS: 93010 ==

== ENCOUNTER → 2025-03-31 13:58 | Outpatient (BNV) | payer OTHER, SELFPAY | PROVIDERS: Emergency Provider Emergency Medicine; PCP Internal Medicine Geriatric Medicine; Visit Provider Radiology Diagnostic Radiology | DX: J84.9 Interstitial pulmonary disease, unspecified (principal) | CPT/HCPCS: 71045 ==

== ENCOUNTER 2025-04-27 04:56 | Inpatient (IN) | payer OTHER, SELFPAY ==
[2025-04-27] VITALS (11 sets, daily range): BP systolic 89–129; BP diastolic 50–73; PULSE 60–103; RESP 14–22; TEMP 36.2–37.2; O2SAT 95–98; BMI 18.6
--- NOTE | ~2025-04-27 | CT_ITS ---
EXAMINATION: CT ABDOMEN PELVIS WITH IV CONTRAST HISTORY: abd pain, nausea, vomiting COMPARISON: Comparison is made with the prior examination dated 02/01/2025. TECHNIQUE: CT scan of the abdomen and pelvis was performed following administration of 85 mL Omnipaque 350 using standard departmental protocol. Coronal and sagittal reformatted images were generated and reviewed. Oral contrast material was not administered at the request of the referring physician. This CT exam was performed with one or more of the following dose reduction techniques: automated exposure control, adjustment of the mA and/or kV according to patient size, use of iterative reconstruction technique. DLP: 235 mGy-cm FINDINGS: LOWER CHEST: The visualized lung bases are clear. There is no pleural effusion. CARDIOVASCULATURE: The heart is normal in size. There is no pericardial effusion. LIVER: The liver is normal in size and contour. There is focal fatty infiltration adjacent to the fissure for the ligamentum teres. No liver mass is identified. The hepatic and portal veins are patent. GALLBLADDER / BILE DUCTS: There is cholelithiasis. There is no intra or extrahepatic biliary ductal dilatation. SPLEEN: The spleen is normal in size. No focal splenic lesion is identified. PANCREAS: The pancreas is unremarkable in appearance. ADRENAL GLANDS: Within normal limits. KIDNEYS/RETROPERITONEUM: No renal calculi are identified. There is no hydronephrosis. No renal masses are identified. LYMPH NODES: No abdominal or pelvic lymphadenopathy. VASCULATURE: Again seen is atherosclerotic calcification of the abdominal aorta with a probable moderate to severe stenosis of the left common iliac artery. There is no aneurysm. MESENTERY/PERITONEUM: No free fluid. No masses. There is no free intraperitoneal gas. STOMACH: There is marked wall thickening of the distal esophagus. The stomach is unremarkable. SMALL BOWEL: The small bowel is normal in caliber. COLON: There is a large amount of stool throughout the colon. APPENDIX: The appendix is not seen, however no inflammatory changes are seen adjacent to the cecum. URINARY BLADDER/PELVIC ORGANS: The urinary bladder is collapsed, limiting evaluation. Peripheral calcifications in the uterus likely vascular in nature. BONES / SOFT TISSUES: There is a moderate to severe compression deformity of L2 without change. CT/CT abdomen pelvis w IV con IMPRESSION: 1. Marked wall thickening of the distal esophagus. Further evaluation with upper endoscopy is recommended. 2. Cholelithiasis. 3. Large amount of stool throughout the colon. Electronically signed by: Darrell Paulino MD 04/27/2025 09:17 AM EDT RP
--- OUTSIDE RECORDS SUMMARY | 2025-04-27 06:12 | XMS_ITS | Encounter Summary ---
Author Organization [employer] Address [address] [facility] [address] [place] [address] Care Team Providers Care Handbag Designer Name Role Phone Name, Stef ESTRADA Primary Care Provider [phone] Reason for Visit * Reason Onset Date Comments Paperwork/Forms 04/18/2024 Encounter Details Date Type Department Care Team ([facility] Contact Info) Description 04/18/2024 Telephone [facility] [address], [place] [phone] Name, MD Stef [address] [place] [address] Paperwork/Forms Social History Tobacco Use Types Packs/Day [...] PM EDT Tc from Emily, nurse at [facility] requesting paperwork to be sign as soon as possible in order to them be able to admit pt into services. Please contact Emily at [phone] if any question. documented in this encounter Plan of Treatment Not on file documented as of this encounter Visit Diagnoses Not on filedocumented in this encounter Additional Health Concerns Assessment Noted Time PHQ-9 Depression Total Score: 0 01/28/20 10:49 AM EDT documented as of this encounter Care Teams Handbag Designer Relationship Specialty Start Date End Date Name, MD Stef [address] [place] [id number] PCP - General Family Medicine 01/28/16 Yuliya Amrit 07/27/24 documented as of this encounter
--- OUTSIDE RECORDS SUMMARY | 2025-04-27 06:12 | XMS_ITS | Data Portability ---
Author Organization [employer] [facility], [facility] Address [address] [place] [address] Care Team Providers Care Health Record Technician Name Role Phone [facility] Referring Provider [facility] Referring Provider Assessment Encounter Date Assessment Date Assessment LastModified by Organization Details LastModified Time 04/22/2022 04/22/2022 I have reviewed and agree with the assessment and plan as documented by the cloth bleaching range back tender. I provided real-time medical direction for this [...] Note 2787 Ralf Valladares MD Main - [address] [address] 04/22/2022 14:09:54 06/10/2022 12:23:06 Pain of wrist region [id number] M25.531 Health Concerns Section Related Observation LastModified by Organization Detai ls LastModified Time None Recorded Concern Status LastModified by Organization Details LastModified Time None Recorded Advance Directives Directive None Recorded Payers Insurance Date Sequence Insurance Name Policy Number Policy Hinson Covered Member ID Hinson Member ID Guarantor Name 11/29/2023 1 [facility] - DOS PRIOR TO 2023 - DUAL ELIGIBLE (MEDICARE REPLACEMENT/ADV ANTAGE - HMO) Elisa Weaver [id number] Elisa Weaver 11/29/2023 1 [facility] [employer] - DOS ON OR AFTER 2023 - DUAL ELIGIBLE - RESIDENTIAL OPTIONS AND ONE CARE (MEDICARE REPLACEMENT/ADV ANTAGE - HMO) Elisa Weaver [id number] Elisa Jaimego Notes Date Note Type Note Provider Name [...] .................. ............... [facility] Nursing Assessment: Comments: Per SURVEY ASSOCIATE, if possible please avoid Bactrim as treatment, as member has had an BRIANNE in the past with use of this abx .................. .................. .................. .................. .................. .................. .................. ............... Measurement Department Chief Clerk Note: eval for pain after right wrist [...] family members in attendance care for [place] [facility] [place] 15 mg toradol for pain, given with some relief. elevated arm on pillow, put ice pack on wrist area with some relief. [facility] [place] and try and get an earlier appointment for ortho .................. .................. .................. .................. .................. .................. .................. ............... Disposition: Fulfilled Ralf Valladares MD [address] [facility], [place], [address], [employer] 04/22/2022 19:27:13 OBGyn Episode No OBEpisode recorded.
[2025-04-27 07:56] LABS: MANUAL DIFF FLAG NO
[2025-04-27 07:59] LABS: Hematocrit 34.3 % (37.0-47.0); Hemoglobin 11.3 g/dl (12.0-16.0); Imm Gran Abs Auto 0.02 X10*3/uL (0.00-0.03); Imm Gran Pct Auto 0.3 % (0.0-0.4); Lymphocytes Absolute Auto 1.7 X10*3/uL (1.2-4.9); Mean Corpuscular HGB Conc 32.9 g/dl (31.0-35.0); Mean Corpuscular Hemoglobin 30.3 pg (27.0-33.0); Mean Corpuscular Volume 92.0 fL (80.0-98.0); NRBC Abs Auto 0.000 X10*3/uL (0.0-0.012); NRBC Pct Auto 0.0 /100WBC (0.0-0.2); Platelet Count 350 X10*3/uL (160-400); Red Blood Count 3.73 X10*6/uL (4.20-5.50); White Blood Count 7.3 X10*3/uL (4.8-10.8)
--- NOTE | 2025-04-27 08:09 | ED_ITS ---
HPI - General Adult General Chief complaint: Abdominal Pain Stated complaint: Vomiting, hx stomach ulcers, hx alzheimer Time Seen by Provider: 04/27/25 08:07 Source: patient, EMS and intelligence operations specialist (all interactions with this patient were facilitated with an [facility] lifestyle director) Mode of arrival: EMS Limitations: language barrier (all interactions with this patient were facilitated with an [facility] lifestyle director) History of Present Illness ED Provider: Kacey La PA-C HPI narrative: Patient is an 84 year old assigned female at with a history of dementia, esophagitis (erosive) stroke, HTN, HLD, CAD, and upper GI bleeding presenting to the emergency department today after episodes of vomiting and complaining of abdominal pain. Patient is a very poor historian, unable to answer any of my questions. Related Data Home Medications ?Medication ?Instructions ?Recorded ?Confirmed albuterol sulfate 90 mcg/actuation 2 puff PO Q4H PRN W heezing 06/27/21 02/02/25 aerosol inhaler mirtazapine 30 mg tablet 30 mg PO BEDTIME 06/27/21 sertraline 25 mg tablet 1 tab PO DAILY 06/27/2110/29 calcium 500 mg (as 1 tab PO BID 07/23/24 carbonate)-vitamin D3 10 mcg (400 unit) tablet (Oyster Shell Calcium-Vitamin D3) melatonin 5 mg tablet 5 mg PO BEDTIME PRN insomnia 07/23/24 02/02/25 amitriptyline 10 mg tablet 10 mg PO BEDTIME 01/22/25 0 02/02/25 atorvastatin 40 mg tablet 40 mg PO DAILY 01/22/2510/29 multivitamin 1 tab PO DAILY 01/22/2510/29 ondansetron 4 mg disintegrating 4 mg PO Q6H PRN nausea and vomiting 02/02/25 02/02/25 tablet Previous Rx's ?Medication ?Instructions ?Recorded pantoprazole 40 mg tablet,delayed 1 tab PO BID@0630,16 30 #180 tabs 08/09/24 release metoprolol succinate 25 mg 12.5 mg (1/2 x 25 mg) PO DA REESE #90 10/20/24 tablet,extended release 24 hr tabs bisacodyl 5 mg tablet,delayed 10 mg (2 x 5 mg) PO BEDT ZONIA 2 days 04/06/25 release (Dulcolax (bisacodyl)) #4 tabs magnesium hydroxide 400 mg/5 mL 5 ml PO BID #355 mL oral suspension (Milk of Magnesia) sucralfate 100 mg/mL oral 1 g (10 mL) PO QIDACHS #1,00 0 mL 01/25/25 suspension melatonin 5 mg capsule 5 mg PO BEDTIME PRN sleep #3 0 caps 03/31/25 sucralfate 100 mg/mL oral 10 ml PO QID #1,000 mL 03/31 suspension Allergies Allergy/AdvReac Type Severity Reaction Status Date / Time No Known Allergies (NO KNOWN Allergy Unknown UNKNOWN Verified 04/27/25 05:13 ALLERGIES) Review of Systems 2 Review of Systems: Yes Other (patient is demented and a poor historian) Constitutional: Constitutional: Reports as per HPI Eyes: Eyes: Reports as per HPI ENT: Reports as per HPI Cardiovascular: Cardiovascular: Reports as per HPI Respiratory: Respiratory: Reports as per HPI Gastrointestinal: Gastrointestinal: Reports as per HPI and Reports vomiting Genitourinary: Genitourinary: Reports as per HPI Musculoskeletal: Musculoskeletal: Reports as per HPI Integumentary/Breasts: Skin/Breast: Reports as per HPI Neurologic: Reports as per HPI Psychiatric: Psychiatric: Reports as per HPI Endocrine: Endocrine: Reports as per HPI Hematologic/Lymphatic: Hematologic/Lymphatic: Reports as per HPI Allergic/Immunologic: Allergic/Immunologic: Reports as per HPI PMF Past Medical History Attestation statement: The following information was validated with the patient. Source: old records reviewed and nursing notes reviewed Medical History Systolic murmur Emphysematous cystitis Anemia Cholecystitis Esophagitis Weight loss Candidiasis, esophageal Nausea & vomiting Gallstones Abnormal nuclear stress test HLD (hyperlipidemia) HTN (hypertension) CVA, old, disturbances of vision (~09/2019) NSTEMI (non-ST elevated myocardial infarction) Dementia Coronary artery disease Surgical History Previous section H/O eye surgery History of esophagogastroduodenoscopy (EGD) Family History Family History Father No problems noted. Mother No problems noted. Social History Social History Household Members: Family Housing: Apartment Are you a primary healthcare translator to a significant other at home: No Do you presently have visiting nurse or other home services: No Unable to assess alcohol history related to: Unable to respond and Unknown Alcohol intake: never Comment: 1:1 sitter Patient Tobacco Use Status: Former Tobacco user Tobacco use type: Smokeless Tobacco Years Smoked: Chews tobacco e-Cigarette/Vaping Use: Never Used Second Hand Smoke Exposure: No Advance Directives: Yes Advance Directives on File: Yes Advance Directives Date on File: 09/02/22 service: No Current occupational status: retired and disabled 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 Physical Exam ED Vital Signs: Vital Signs - 24 hr 04/27/25 05:09 04/27/25 05:45 04/27/25 07:28 Temperature 98.8 F 98.9 F 97.1 F Pulse Rate 81 82 94 Respiratory Rate 16 16 22 H Blood Pressure 129/73 129/68 107/58 L Pulse Oximetry 98 97 98 Oxygen Delivery Method Room Air Room Air Room Air 04/27/25 08:32 04/27/25 10:10 Temperature 98.3 F 98.9 F Pulse Rate 77 74 Respiratory Rate 18 16 Blood Pressure 108/62 103/62 Pulse Oximetry 98 96 Oxygen Delivery Method Room Air Room Air BMI result Body Mass Index 18.6 Const General: cooperative, no acute distress, alert and awake Nutritional Appearance: cachectic Orientation/consciousness: oriented to person [facility] Head: Yes normal to inspection and Yes atraumatic Ears: hearing grossly normal bilaterally and external ears normal General nose exam: Normal external nose present, no nasal discharge noted and no epistaxis Face and sinus: Yes normal facial exam, No abrasion and No laceration Mouth: Normal oral and palatal mucosa present, no drooling and no muffled voice Eyes General: appearance normal, both eyes and all related structures Periorbital: periorbital findings normal Eyelids: Yes eyelids normal Conjunctivae: conjunctivae normal Pupils: Equal, round and reactive pupils present EOM: EOMs intact bilaterally Neck Neck: Yes normal visual inspection, Yes full ROM and Yes no lymphadenopathy Resp Effort & Inspection: normal respiratory effort and able to speak in complete sentences Neuro General: oriented to person, moves all extremities and CN's II-XI intact bilaterally Cranial nerves: Yes Equal, round and reactive pupils present Cognition (Neuro): normal cognition Extrem General: Yes normal to inspection, Yes full ROM and Yes capillary refill normal Psych Appearance: grossly normal Mental Status: mental status grossly normal Affect: normal affect Medications Administered Discontinued Medications Generic Name Dose Route Start Last Admin Trade Name Josh PRN Reason Stop Dose Admin Sodium Chloride 1,000 mls @ 999 mls/hr 04/27/25 08:15 04/27/25 08:20 Ns IV 04/27/25 09:15 999 mls/hr .Q1H1M TAL Administration Iohexol 100 ml 04/27/25 09:04 04/27/25 09:05 Iohexol 350 Mg/Ml 100 Ml Infus..Btl IV 04/27/25 09:05 85 ml ONCE ONE Administration Ondansetron HCl 4 mg 04/27/25 08:10 04/27/25 08:21 Ondansetron Hcl 4 Mg/2 Ml Vial IVPUSH 04/27/25 08:11 4 mg ONCE ONE Administration Pantoprazole Sodium 40 mg 04/27/25 09:25 04/27/25 10:11 Pantoprazole Sodium 40 Mg/10 Ml Vial IVPUSH 04/27/25 09:26 40 mg ONCE ONE Administration Medical Decision Making Medical Decision Making [facility] Narrative: Patient is an 84 year old assigned female at with a history of dementia, esophagitis (erosive) stroke, HTN, HLD, CAD, and upper GI bleeding presenting to the emergency department today after episodes of vomiting and complaining of abdominal pain. Patient's physical exam showed a severely demented individual that is cachetic in appearance. Patient's blood work was unremarkable. Patient's CT abd/pelvis showed marked wall thickening of the distal esophagus for which radiology recommended further evaluation with upper endoscopy. Patient given IV Zofran and continues to be unable to tolerate PO. I spoke with the hospitalist team and they agreed to admission for continued nausea / vomiting control and evaluation. I explained my physical exam findings as well as all test results to the patient. Patient did not have any questions. Differential Diagnosis Differential Diagnoses: The differential diagnosis associated with the presentation includes Nausea Vomiting Upper GI bleeding Unable to tolerate PO Admission/Observation Consideration of admission/observation: Escalation of care including admission/observation considered Patient admitted as noted in the MDM Rationale portion of this note. Lab Data [facility] Lab Attestation statement: I reviewed the patient's lab results. My interpretation of these results are in the MDM Rationale portion of this note. 04/27/25 07:52 04/27/25 07:52 Labs: Lab Results 04/27/25 04/27/25 Range/Units 07:52 08:15 WBC 7.3 (4.8-10.8) X10*3/uL RBC 3.73 L (4.20-5.50) X10*6/uL Hgb 11.3 L (12.0-16.0) g/dl Hct 34.3 L (37.0-47.0) % MCV 92.0 (80.0-98.0) fL MCH 30.3 (27.0-33.0) pg MCHC 32.9 (31.0-35.0) g/dl RDW 14.4 (11.0-16.0) % Plt Count 350 (160-400) X10*3/uL MPV 11.5 (9.4-12.3) fL Immature Gran % (Auto) 0.3 (0.0-0.4) % Neut % (Auto) 64.7 (45-73) % Lymph % (Auto) 23.8 (20-40) % Mckean % (Auto) 9.4 (2-11) % Eos % (Auto) 1.4 (0-4) % Baso % (Auto) 0.4 (0-2) % Lymph # (Auto) 1.7 (1.2-4.9) X10*3/uL Mckean # (Auto) 0.7 (0.1-1.2) X10*3/uL Eos # (Auto) 0.1 (0.0-0.4) X10*3/uL Baso # (Auto) 0.0 (0.0-0.2) X10*3/uL Abs Immat Gran (auto) 0.02 (0.00-0.03) X10*3/uL Absolute Neuts (auto) 4.7 (2.0-8.3) x10*3/uL Absolute Nucleated RBC 0.000 (0.0-0.012) X10*3/uL Nucleated RBC % (auto) 0.0 (0.0-0.2) /100WBC Sodium 135 (135-145) mmol/L Potassium 4.3 D (3.3-5.1) mmol/L Chloride 104 (96-108) mmol/L Carbon Dioxide 26 (22-29) mmol/L Anion Gap 9 L (12-20) BUN 14 (9-16) mg/dL Creatinine 0.53 (0.5-1.4) mg/dL Estim Creat Clear Calc 48.1 Estimated GFR > 60 Random Glucose 155 H (60-115) mg/dL Calcium 9.3 D (8.4-10.2) mg/dL Magnesium 2.1 (1.6-2.6) mg/dL Total Bilirubin 0.1 (0.0-1.0) mg/dL AST 21 (5-31) U/L ALT 11 (0-31) U/L Alkaline Phosphatase 94 (39-117) U/L Troponin I High Sens 4.6 (<3.5-17.0) ng/L Total Protein 7.2 (6.5-8.0) g/dL Albumin 3.8 (3.5-5.0) g/dL Independent Interpretation I performed an independent interpretation of an: CT Scan Interpretation: My interpretation is in agreement with the radiologist's impression of this imaging study. L Report Number: [id number]: Total DLP = 235.00 mGy-cm EXAMINATION: CT ABDOMEN PELVIS WITH IV CONTRAST HISTORY: abd pain, nausea, vomiting COMPARISON: Comparison is made with the prior examination dated 02/01/2025. TECHNIQUE: CT scan of the abdomen and pelvis was performed following administration of 85 mL Omnipaque 350 using standard departmental protocol. Coronal and sagittal reformatted images were generated and reviewed. Oral contrast material was not administered at the request of the referring physician. This CT exam was performed with one or more of the following dose reduction techniques: automated exposure control, adjustment of the mA and/or kV according to patient size, use of iterative reconstruction technique. DLP: 235 mGy-cm FINDINGS: LOWER CHEST: The visualized lung bases are clear. There is no pleural effusion. CARDIOVASCULATURE: The heart is normal in size. There is no pericardial effusion. LIVER: The liver is normal in size and contour. There is focal fatty infiltration adjacent to the fissure for the ligamentum teres. No liver mass is identified. The hepatic and portal veins are patent. GALLBLADDER / BILE DUCTS: There is cholelithiasis. There is no intra or extrahepatic biliary ductal dilatation. SPLEEN: The spleen is normal in size. No focal splenic lesion is identified. PANCREAS: The pancreas is unremarkable in appearance. ADRENAL GLANDS: Within normal limits. KIDNEYS/RETROPERITONEUM: No renal calculi are identified. There is no hydronephrosis. No renal masses are identified. LYMPH NODES: No abdominal or pelvic lymphadenopathy. VASCULATURE: Again seen is atherosclerotic calcification of the abdominal aorta with a probable moderate to severe stenosis of the left common iliac artery. There is no aneurysm. MESENTERY/PERITONEUM: No free fluid. No masses. There is no free intraperitoneal gas. STOMACH: There is marked wall thickening of the distal esophagus. The stomach is unremarkable. SMALL BOWEL: The small bowel is normal in caliber. COLON: There is a large amount of stool throughout the colon. APPENDIX: The appendix is not seen, however no inflammatory changes are seen adjacent to the cecum. URINARY BLADDER/PELVIC ORGANS: The urinary bladder is collapsed, limiting evaluation. Peripheral calcifications in the uterus likely vascular in nature. BONES / SOFT TISSUES: There is a moderate to severe compression deformity of L2 without change. CT/CT abdomen pelvis w IV con IMPRESSION: 1. Marked wall thickening of the distal esophagus. Further evaluation with upper endoscopy is recommended. 2. Cholelithiasis. 3. Large amount of stool throughout the colon. Electronically signed by: Darrell Paulino MD 04/27/2025 09:17 AM EDT Dictated By: Darrell Paulino MD Signed By: Electronically signed by Darrell Paulino MD 04/27/25 0917 Radiology Impression Discussion of test interpretation with radiology: I have reviewed the radiologist's reading. Independent Historian Clinical information obtained from an independent historian. History obtained from or confirmed by: EMS (EMS provided additional history) Critical Care Time Critical Care Time Critical Care Time: Yes Total Critical Care Time: 36 Attestation: I spent 36 minutes of Critical Care Time with this patient. This does not include time spent on separately reported billable procedures. Discharge Plan Discharge Clinical Impression: Nausea & vomiting Patient Disposition: Admitted As Inpatient
--- NOTE | 2025-04-27 08:10 | ECG_ITS ---
Test Reason : epigastric pain Blood Pressure : */* mmHG Vent. Rate : 74 BPM Atrial Rate : 74 BPM P-R Int : 138 ms QRS Dur : 74 ms QT Int : 422 ms P-R-T Axes : 51 17 46 degrees QTcB Int : 468 ms Normal sinus rhythm Normal ECG When compared with ECG of 31-Mar-2025 14:51, Criteria for Anterior infarct are no longer Present Criteria for Anterolateral infarct are no longer Present Referred By: Kacey La Electronically Signed By: Chun Pritchett
--- NOTE | 2025-04-27 08:22 | PC.NURSE ---
This RN assumed care of patient @ 0700. Patient nicaraguan speaking. Patient c/o abdomen pain rated 8/10. +bowel sounds. Patient had medium hard BM this AM. 20G R forearm. VSS and up to date
[2025-04-27 08:31] LABS: Alanine Aminotransferase 11 U/L (0-31); Albumin Level 3.8 g/dL (3.5-5.0); Alkaline Phosphatase 94 U/L (39-117); Anion Gap 9 (12-20); Aspartate Amino Transferase 21 U/L (5-31); Blood Urea Nitrogen 14 mg/dL (9-16); Calcium 9.3 mg/dL (8.4-10.2); Carbon Dioxide 26 mmol/L (22-29); Chloride 104 mmol/L (96-108); Creatinine Clr Calc Pharmacy 48.1; Estimated Glomerular Filt Rate > 60; Potassium 4.3 mmol/L (3.3-5.1); Sodium 135 mmol/L (135-145); Total Protein 7.2 g/dL (6.5-8.0)
[2025-04-27 08:42] LABS: Troponin-I High Sensitivity 4.6 ng/L (<3.5-17.0)
[2025-04-27 09:04] LABS: Magnesium 2.1 mg/dL (1.6-2.6)
[2025-04-27] MEDS: iohexoL 350 MG/ML 100 ML INFUS..BTL IV (09:05)
--- NOTE | 2025-04-27 10:11 | PC.NURSE ---
Patient able to ambulate to bathroom 1 assist with walker. Denies SOB steady gait noted
--- NOTE | 2025-04-27 10:56 | PM.IMHP ---
History of Present Illness Date of Service: 04/27/25 Chief Complaint: Abdominal pain, vomiting 84 year old with PMH of Alzheimer dementia, esophagitis (erosive) stroke, HTN, HLD, CAD, history of CVA, history of NSTEMI, history of upper GI bleeding. Presented to ED via EMS with vomiting and abdominal pain. In the ED CT revealed marked wall thickening of the distal esophagus, cholelithiasis without evidence of biliary ductal dilatation and a large amount of stool through the colon. Recommend upper endoscopy for further evaluation. Received 1 L IVF, Zofran and pantoprazole in ED. H&H is stable at 11.3/34.3. Glucose slightly elevated, Troponin WNL. CMP otherwise unremarkable, no elevation in liver function . Last EGD 01/24/25 with moderate sized hiatal hernia and severe ulcerative esophagitis, with neg HSV< CMV and ellie stains. On exam she is pleasantly confused, reports upper epigastric pain. She is in no apparent distress. Her vitals are stable. No fever or tachycardia. Per ED patient has had 1 episode of vomiting, bile in appearance. Has been unable to keep anything down. The end of March patient was in the ED for abdominal pain and vomiting on 03/31/25, her workup was unremarkable and she was not admitted at that time. Patient was hospitalized in January, she was treated with IV PPI, she was discharged on PPI and Carafate, and it was recommended to discontinue her Plavix. Review of Systems Review of Systems: Minimal review of systems due to advanced dementia. [facility] Medical History Systolic murmur Emphysematous cystitis Anemia Cholecystitis Esophagitis Weight loss Candidiasis, esophageal Nausea & vomiting Gallstones Abnormal nuclear stress test HLD (hyperlipidemia) HTN (hypertension) CVA, old, disturbances of vision (~09/2019) NSTEMI (non-ST elevated myocardial infarction) Dementia Coronary artery disease Family History Father No problems noted. Mother No problems noted. Surgical History Previous section H/O eye surgery History of esophagogastroduodenoscopy (EGD) Social History Household Members: Children Housing: Apartment Are you a primary career development coordinator/teacher to a significant other at home: No Do you presently have visiting nurse or other home services: No Unable to assess alcohol history related to: Unable to respond and Unknown Alcohol intake: never Comment: 1:1 sitter Patient Tobacco Use Status: Former Tobacco user Tobacco use type: Smokeless Tobacco Years Smoked: Chews tobacco e-Cigarette/Vaping Use: Never Used Second Hand Smoke Exposure: No Currently Displaying Signs/Symptoms of Drug Intoxication Withdrawal: No Have you been hit, kicked, punched, or otherwise hurt by someone within the past year? 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 Meds Allergies Allergy/AdvReac Type Severity Reaction Status Date / Time No Known Allergies (NO KNOWN Allergy Unknown UNKNOWN Verified 04/27/25 05:13 ALLERGIES) Home Medications ?Medication ?Instructions ?Recorded ?Confirmed ?Last Taken ?Type albuterol sulfate 90 mcg/actuation 2 puff PO Q4H PRN Wheezing 06/27/21 04/27/25 Unknown History aerosol inhaler mirtazapine 30 mg tablet 30 mg PO BEDTIME 06/27/21 04/27/25 04/26/25 History sertraline 25 mg tablet 1 tab PO DAILY 06/27/21 04/27/25 04/26/25 History amitriptyline 10 mg tablet 10 mg PO BEDTIME 01/22/25 04/27/25 04/26/25 History atorvastatin 40 mg tablet 40 mg PO DAILY 01/22/25 04/27/25 04/26/25 History multivitamin 1 tab PO DAILY 01/22/25 04/27/25 04/26/25 History calcium 500 mg (as 1 tab PO BID 04/27/25 04/27/25 04/26/25 History carbonate)-vitamin D3 10 mcg (400 unit) tablet (Oyster Shell Calcium-Vitamin D3) clopidogrel 75 mg tablet 75 mg PO DAILY 04/27/25 04/27/25 Unknown History polyethylene glycol 3350 17 17 g PO BID PRN Constipation 04/27/25 04/27/25 Unknown History gram/dose oral powder (Miralax) Physical Exam Vital Signs and Narrative: Vital Signs: Last Vital Signs Temp 98.9 F 04/27/25 10:10 Pulse 74 04/27/25 10:10 Resp 16 04/27/25 10:10 BP 103/62 04/27/25 10:10 Pulse Ox 96 04/27/25 10:10 O2 Del Method Room Air 04/27/25 10:10 BMI result Body Mass Index 18.6 CONST: Alert and confused, verbal. Talking in Burmese. Cachectic HEENT: Normocephalic, atraumatic, MMM, Eyes clear, Neck supple RESP: Lungs clear, RRR even and regular HEART:,RRR, S1, S2. No murmur, no edema GI:Abdomen Soft NT, ND. + BS times four :Deferred SKIN: Warm dry and intact, no visible lesions or rashes NEURO:CN II-XII Intact bilaterally, Moves all extremities, Speech clear PSYCH: Calm Results Labs 04/27/25 21:12 04/27/25 07:52 Labs: Laboratory Results - last 24 hr 04/27/25 07:52 MCV 92.0 MCH 30.3 MCHC 32.9 RDW 14.4 Plt Count 350 MPV 11.5 Immature Gran % (Auto) 0.3 Neut % (Auto) 64.7 Lymph % (Auto) 23.8 [place] % (Auto) 9.4 Eos % (Auto) 1.4 Baso % (Auto) 0.4 Lymph # (Auto) 1.7 [place] # (Auto) 0.7 Eos # (Auto) 0.1 Baso # (Auto) 0.0 Abs Immat Gran (auto) 0.02 Absolute Neuts (auto) 4.7 Absolute Nucleated RBC 0.000 Nucleated RBC % (auto) 0.0 Anion Gap 9 L Estim Creat Clear Calc 48.1 Estimated GFR > 60 Random Glucose 155 H Calcium 9.3 D Magnesium 2.1 Total Bilirubin 0.1 AST 21 ALT 11 Alkaline Phosphatase 94 Total Protein 7.2 Albumin 3.8 Imaging Radiologist's Impressions: Impressions Abdomen/Pelvis CT 04/27/25 07:52 IMPRESSION: 1. Marked wall thickening of the distal esophagus. Further evaluation with upper endoscopy is recommended. 2. Cholelithiasis. 3. Large amount of stool throughout the colon. Electronically signed by: Darrell Paulino MD 04/27/2025 09:17 AM EDT RP Assessment and Plan (1) Nausea & vomiting: Qualifiers: Vomiting type: unspecified Qualified Code(s): R11.2 - Nausea with vomiting, unspecified Status: Acute Plan 84-year-old female with pertinent history of CVA, HTN, HLD,CAD, Alzheimers dementia, history of NSTEMI no stent, history of UGI bleeding, history of Ellie glabrata esophagitis in December who was brought to the emergency department via EMS for evaluation of abdominal pain and emesis. She will be admitted for further management. Medication reconciliation not completed at time of visit Abdominal pain/?Upper GI bleed/Vomiting Consulted Gastroenterology Continue IV PPI, anti emetics Will keep patient NPO until seen by GI-IV hydration Follow CBC, next at 8 pm and in am. Transfuse less than 7. HTN/HLD Hold home Blood pressure medication due to soft BP Resume as appropriate Alzheimers Dementia Poor Historian Continue supportive care. CODE STATUS FULL CODE DVT PROPHY: Sequentials Quality Stroke Does the patient have a stroke diagnosis?: No VTE Prior VTE?: No VTE Risk Level:: Medical - moderate - high VTE Device Contraindication: N/A - Device Ordered VTE Drug Contraindication: Treatment Not Indicated
--- NOTE | 2025-04-27 11:02 | PM.IMHP ---
History of Present Illness Date of Service: 04/27/25 Chief Complaint: Nausea and vomitting 1. Marked wall thickening of the distal esophagus. Further evaluation with upper endoscopy is recommended. 2. Cholelithiasis. 3. Large amount of stool throughout the colon. Review of Systems Review of Systems: Yes Unobtainable due to mental status [facility] Medical History Systolic murmur Emphysematous cystitis Anemia Cholecystitis Esophagitis Weight loss Candidiasis, esophageal Nausea & vomiting Gallstones Abnormal nuclear stress test HLD (hyperlipidemia) HTN (hypertension) CVA, old, disturbances of vision (~09/2019) NSTEMI (non-ST elevated myocardial infarction) Dementia Coronary artery disease Family History Father No problems noted. Mother No problems noted. Surgical History Previous section H/O eye surgery History of esophagogastroduodenoscopy (EGD) Social History Household Members: Family Housing: Apartment Are you a primary gericare aide to a significant other at home: No Do you presently have visiting nurse or other home services: No Unable to assess alcohol history related to: Unable to respond and Unknown Alcohol intake: never Comment: 1:1 sitter Patient Tobacco Use Status: Former Tobacco user Tobacco use type: Smokeless Tobacco Years Smoked: Chews tobacco e-Cigarette/Vaping Use: Never Used Second Hand Smoke Exposure: No Advance Directives: Yes Advance Directives on File: Yes Advance Directives Date on File: 09/02/22 service: No Current occupational status: retired and disabled 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 Meds Allergies Allergy/AdvReac Type Severity Reaction Status Date / Time No Known Allergies (NO KNOWN Allergy Unknown UNKNOWN Verified 04/27/25 05:13 ALLERGIES) Home Medications ?Medication ?Instructions ?Recorded ?Confirmed ?Last Taken ?Type albuterol sulfate 90 mcg/actuation 2 puff PO Q4H PRN Wheezing 06/27/21 02/02/25 Unknown History aerosol inhaler mirtazapine 30 mg tablet 30 mg PO BEDTIME 06/27/21 02/02/25 Unknown History sertraline 25 mg tablet 1 tab PO DAILY 06/27/21 02/02/25 Unknown History calcium 500 mg (as 1 tab PO BID 07/23/24 02/02/25 Unknown History carbonate)-vitamin D3 10 mcg (400 unit) tablet (Oyster Shell Calcium-Vitamin D3) melatonin 5 mg tablet 5 mg PO BEDTIME PRN insomnia 07/23/24 02/02/25 Unknown History amitriptyline 10 mg tablet 10 mg PO BEDTIME 01/22/25 02/02/25 Unknown History atorvastatin 40 mg tablet 40 mg PO DAILY 01/22/25 02/02/25 Unknown History multivitamin 1 tab PO DAILY 01/22/25 02/02/25 Unknown History ondansetron 4 mg disintegrating 4 mg PO Q6H PRN nausea and vomiting 02/02/25 02/02/25 Unknown History tablet Physical Exam Vital Signs and Narrative: Vital Signs: Last Vital Signs Temp 98.9 F 04/27/25 10:10 Pulse 74 04/27/25 10:10 Resp 16 04/27/25 10:10 BP 103/62 04/27/25 10:10 Pulse Ox 96 04/27/25 10:10 O2 Del Method Room Air 04/27/25 10:10 BMI result Body Mass Index 18.6 Const: Other: General: AO X , no acute distress Resp: CTA bilateral CVS: S1,S2,RRR GI: +BS, NT, no distention Skin: No rash Neuro: motor grossly intact Psych: appropriate affect Results Labs 04/27/25 07:52 04/27/25 07:52 Labs: Laboratory Results - last 24 hr 04/27/25 07:52 MCV 92.0 MCH 30.3 MCHC 32.9 RDW 14.4 Plt Count 350 MPV 11.5 Immature Gran % (Auto) 0.3 Neut % (Auto) 64.7 Lymph % (Auto) 23.8 [place] % (Auto) 9.4 Eos % (Auto) 1.4 Baso % (Auto) 0.4 Lymph # (Auto) 1.7 [place] # (Auto) 0.7 Eos # (Auto) 0.1 Baso # (Auto) 0.0 Abs Immat Gran (auto) 0.02 Absolute Neuts (auto) 4.7 Absolute Nucleated RBC 0.000 Nucleated RBC % (auto) 0.0 Anion Gap 9 L Estim Creat Clear Calc 48.1 Estimated GFR > 60 Random Glucose 155 H Calcium 9.3 D Magnesium 2.1 Total Bilirubin 0.1 AST 21 ALT 11 Alkaline Phosphatase 94 Total Protein 7.2 Albumin 3.8 Imaging Radiologist's Impressions: Impressions Abdomen/Pelvis CT 04/27/25 07:52 IMPRESSION: 1. Marked wall thickening of the distal esophagus. Further evaluation with upper endoscopy is recommended. 2. Cholelithiasis. 3. Large amount of stool throughout the colon. Electronically signed by: Darrell Paulino MD 04/27/2025 09:17 AM EDT RP Assessment and Plan (1) Nausea & vomiting: Status: Acute (2) Abdominal pain: Qualifiers: Abdominal location: generalized Qualified Code(s): R10.84 - Generalized abdominal pain Status: Inactive Quality Stroke Does the patient have a stroke diagnosis?: No VTE Prior VTE?: No VTE Risk Level:: Medical - moderate - high VTE Device Contraindication: Treatment Not Indicated VTE Drug Contraindication: N/A - Med Ordered
[2025-04-27] MEDS: Lactated Ringers 1,000 ML 125 ML IVCONT ×2 (11:28→18:25)
--- NOTE | 2025-04-27 12:52 | P.CNGI_ITS ---
History of Present Illness Data of Consult Service Date: 04/27/25 Requesting physician: Liliana Avalos Primary Care Provider: Stef Greer MD HPI Reason for consult: Abdominal pain, ? Upper GI bleed 84 YF with Alzheimer dementia, esophagitis (erosive) stroke, HTN, HLD, CAD, history of CVA, history of NSTEMI, history of upper GI bleeding seen [place] [facility] [place] with vomiting and abdominal pain. History obtained from the son, Robby, (with the help of a telephone bread wrapper operator # [id number]) who reported pt has been complaining of odynophagia and abdominal pain for the past few months Pt has been drinking milk, juice and water and refusing to eat food. She was taking soup in the past and now refusing to take the soup Son reported 3 episodes of non-bloody vomitus yesterday ED treatment: Received 1 L IVF, Zofran and pantoprazole in ED. H&H is stable at 11.3/34.3. Glucose slightly elevated, Troponin WNL. CMP otherwise unremarkable, no elevation in liver function . Per ED patient has had 1 episode of vomiting, bile in appearance. Has been unable to keep anything down. The end of March patient was in the ED for abdominal pain and vomiting on 03/31/25, her workup was unremarkable and she was not admitted at that time. Patient was hospitalized in January, she was treated with IV PPI, she was discharged on PPI and Carafate, and it was recommended to discontinue her Plavix. 04/27/[address] SCAN SHOWED: 1. Marked wall thickening of the distal esophagus. Further evaluation with upper endoscopy is recommended. 2. Cholelithiasis. 3. Large amount of stool throughout the colon. PAST GI HISTORY BY REVIEW OF MEDICAL RECORDS: Pt is known to me from her previous hospitalization in August, and December,. 08/05/24 EGD showed aaron esophagitis with cultures growing Aaron glabrata. She was treated with a 2-week course of fluconazole and discharged on PO Omeprazole. On GI FU, pt's family expressed concern regarding poor PO inatke and wt loss and requested PEG tube placement for nutritional support. Due to concern for persistent infection with Aaron glabrata (which can be resistant to Fluconazole) Pt was discussed with Dr Vogel (ID) and advised hospitalization for treatment of Aaron Glabrata with IV Caspofungin IV,. Pt denied fever or chills, shortness of breath, nausea or vomiting. 01/24/25 EGD SHOWED: EGD Findings:? * Esophagus:? Severe esophagitis with white based ulceration extending from GE junction at 27 cm to 22 cm. The Z-line was displaced by hiatal hernia with the diaphragmatic pinch at 31 cm. Cold forceps biopsies were taken from the edges of the ulcer to rule out infectious esophagitis. * Stomach:? Normal mucosa was noted in the stomach. Retroflexion was performed in the cardia that showed Hill grade 3 hiatal hernia. * Duodenum:? Normal mucosa was noted in the whole of the examined duodenum. ? EGD Impressions:? * Grade D esophagitis (biopsy) * Hiatal hernia * Normal stomach * Normal duodenum ?? Recommendations:?? * Follow biopsy results. Our office will call or send a letter with results within 7-10 days. * Maximize anti-secretory therapy - omeprazole 20 BID + sucralfate 10 ml QID * Keep HOB at 30-45 deg at bedtime * Stay up right for atleast 60 mins post meals * Resume plavix today * Avoid NSAIDs. BIOPSIES SHOWED: Esophagus, lower, biopsy: Ulcerative esophagitis; no atypia or fungi identified. Immunostains for HSV and CMV are non-reactive (appropriate positive controls). No change is made to the diagnoses. Review of Systems 2 Review of Systems: Yes Unobtainable due to mental status [facility] Past Medical History Medical History Systolic murmur Emphysematous cystitis Anemia Cholecystitis Esophagitis Weight loss Candidiasis, esophageal Nausea & vomiting Gallstones Abnormal nuclear stress test HLD (hyperlipidemia) HTN (hypertension) CVA, old, disturbances of vision (~09/2019) NSTEMI (non-ST elevated myocardial infarction) Dementia Coronary artery disease Family History Family History Father No problems noted. Mother No problems noted. Surgical History Surgical History Previous section H/O eye surgery History of esophagogastroduodenoscopy (EGD) Social History Social History Household Members: Children Housing: Apartment Are you a primary emergency care attendant to a significant other at home: No Do you presently have visiting nurse or other home services: No Unable to assess alcohol history related to: Unable to respond and Unknown Alcohol intake: never Comment: 1:1 sitter Patient Tobacco Use Status: Former Tobacco user Tobacco use type: Smokeless Tobacco Years Smoked: Chews tobacco e-Cigarette/Vaping Use: Never Used Second Hand Smoke Exposure: No Advance Directives Date on File: 09/02/22 service: No Current occupational status: retired and disabled 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 Meds Allergies Allergy/AdvReac Type Severity Reaction Status Date / Time No Known Allergies (NO KNOWN Allergy Unknown UNKNOWN Verified 04/27/25 05:13 ALLERGIES) Active Medications: Current Medications Acetaminophen (Acetaminophen 325 Mg Tablet) 650 mg PO Q6H PRN PRN Reason: Pain, Mild 1-3,fever,headache Al Hydroxide/Mg Hydroxide (Magnesium Hydrox/Alum Hydrox 30 Ml Oral.Susp) 30 ml PO Q4H PRN PRN Reason: Heartburn Calcium Carbonate (Calcium Carbonate 750 Mg Tab.Chew) 750 mg PO Q4H PRN PRN Reason: Heartburn Lactated Ringer's (Lr) 1,000 mls @ 125 mls/hr IVCONT .Q8H [facility] Last Admin: 04/27/25 11:28 Dose: 125 mls/hr Magnesium Hydroxide (Milk Of Magnesia 30 Ml Oral.Susp) 30 ml PO DAILY PRN PRN Reason: Constipation Melatonin (Melatonin 3 Mg Tablet) 6 mg PO BEDTIME PRN PRN Reason: Insomnia Ondansetron HCl (Ondansetron Hcl 4 Mg/2 Ml Vial) 4 mg IVPUSH Q8H PRN PRN Reason: Nausea and Vomiting Pantoprazole Sodium (Pantoprazole Sodium 40 Mg/10 Ml Vial) 40 mg IVPUSH BID@0630,1630 [facility] Polyethylene Glycol (Polyethylene Glycol 3350 17 Gm Powd.Pack) 17 gm PO DAILY PRN PRN Reason: Constipation Sodium Chloride (0.9 % Sodium Chloride Flush 3 Ml Syringe) 3 ml IVFLUSH QSHIFT [facility] Home Medications ?Medication ?Instructions ?Recorded ?Confirmed ?Last Taken ?Type albuterol sulfate 90 mcg/actuation 2 puff PO Q4H PRN W jacqui 06/27/21 04/27/25 Unknown History aerosol inhaler mirtazapine 30 mg tablet 30 mg PO BEDTIME 06/27/2104/26/25 History sertraline 25 mg tablet 1 tab PO DAILY 06/27/2104/0504/26/25 History amitriptyline 10 mg tablet 10 mg PO BEDTIME 01/22/25 0 04/27/25 04/26/25 History atorvastatin 40 mg tablet 40 mg PO DAILY 01/22/2504/0504/26/25 History multivitamin 1 tab PO DAILY 01/22/2504/0504/26/25 History calcium 500 mg (as 1 tab PO BID 04/27/2504/26/25 History carbonate)-vitamin D3 10 mcg (400 unit) tablet (Oyster Shell Calcium-Vitamin D3) polyethylene glycol 3350 17 17 g PO BID PRN Constipati on 04/27/25 04/27/25 Unknown History gram/dose oral powder (Miralax) Physical Exam 2 Vital Signs: Vital Signs: Last Vital Signs Temp 97.1 F 04/27/25 11:49 Pulse 64 04/27/25 11:49 Resp 14 04/27/25 11:49 BP 104/50 L 04/27/25 11:49 Pulse Ox 95 04/27/25 11:49 O2 Del Method Room Air 04/27/25 11:49 BMI result Body Mass Index 18.6 Const: General: no acute distress and other (frail appearing) Nutritional Appearance: underweight Orientation/consciousness: patient oriented x3 L imitations: language barrier HEENT: Head: Yes normal to inspection Ears: hearing grossly normal bilaterally Mouth: Normal oral and palatal mucosa present Eyes: Sclerae: sclerae normal Pupils: Equal, round and reactive pupils present Neck: Neck: Yes normal visual inspection Chest: Chest palpation & inspection: normal inspection of the chest Resp: Effort & Inspection: normal respiratory effort Auscultation: clear to auscultation bilaterally Cardio: Palpation: normal PMI Rate: regular rate Rhythm: regular rhythm Heart sounds: S1 normal heart sound present, S2 normal heart sound present and no murmurs GI: Palpation (GI): Soft to palpation, nontender and No hepatosplenomegaly present Auscultation: normal bowel sounds Rectal Exam - Female: deferred Skin: General skin exam: no rashes or lesions noted Neuro: General: patient oriented x3, gait normal and moves all extremities Cranial nerves: Yes Equal, round and reactive pupils present Psych: Appearance: grossly normal Mental Status: mental status grossly normal Results Labs 04/29/25 09:17 04/27/25 07:52 Labs: Short CBC 04/27/25 Range/Units 07:52 WBC 7.3 (4.8-10.8) X10*3/uL Hgb 11.3 L (12.0-16.0) g/dl Hct 34.3 L (37.0-47.0) % Plt Count 350 (160-400) X10*3/uL BMP 04/27/25 07:52 Sodium 135 Potassium 4.3 D Chloride 104 Carbon Dioxide 26 BUN 14 Creatinine 0.53 Calcium 9.3 D Liver Function 04/27/25 Range/Units 07:52 Total Bilirubin 0.1 (0.0-1.0) mg/dL AST 21 (5-31) U/L ALT 11 (0-31) U/L Alkaline Phosphatase 94 (39-117) U/L Albumin 3.8 (3.5-5.0) g/dL Assessment and Plan (1) Nausea & vomiting: Qualifiers: Vomiting type: unspecified Qualified Code(s): R11.2 - Nausea with vomiting, unspecified Status: Acute (2) Odynophagia: Status: Acute Plan 84 YF with Alzheimer dementia, esophagitis (erosive) stroke, HTN, HLD, CAD, history of CVA, history of NSTEMI, history of upper GI bleeding [place] [facility] [place] with vomiting and abdominal pain. Per ED patient has had 1 episode of vomiting, bile in appearance. Has been unable to keep anything down. The end of March patient was in the ED for abdominal pain and vomiting on 03/31/25, her workup was unremarkable and she was not admitted at that time. Patient was hospitalized in January, she was treated with IV PPI, she was discharged on PPI and Carafate, and it was recommended to discontinue her Plavix. Wt loss from 90 to 85 lbs over the past 3 months 04/27/[address] SCAN SHOWED: 1. Marked wall thickening of the distal esophagus. Further evaluation with upper endoscopy is recommended. 2. Cholelithiasis. 3. Large amount of stool throughout the colon. RECOMMENDATIONS: 1. Agree with IV PPI and anti-emetics. 2. Proceed with upper endoscopy in the am (discussed with pt's son and HCP who is in agreement). 3. Miralax 3 times daily for constipation Procedures Date of Service Date of Service: 05/06/25
[2025-04-27 13:05] LABS: MANUAL DIFF FLAG NO
[2025-04-27 13:06] LABS: Hematocrit 29.3 % (37.0-47.0); Hemoglobin 9.5 g/dl (12.0-16.0); Imm Gran Abs Auto 0.01 X10*3/uL (0.00-0.03); Imm Gran Pct Auto 0.1 % (0.0-0.4); Lymphocytes Absolute Auto 2.8 X10*3/uL (1.2-4.9); Mean Corpuscular HGB Conc 32.4 g/dl (31.0-35.0); Mean Corpuscular Hemoglobin 30.4 pg (27.0-33.0); Mean Corpuscular Volume 93.9 fL (80.0-98.0); NRBC Abs Auto 0.000 X10*3/uL (0.0-0.012); NRBC Pct Auto 0.0 /100WBC (0.0-0.2); Platelet Count 305 X10*3/uL (160-400); Red Blood Count 3.12 X10*6/uL (4.20-5.50); White Blood Count 8.0 X10*3/uL (4.8-10.8)
--- NOTE | 2025-04-27 19:15 | PHA.MEDREC ---
Addendum entered by Georgia Trevizo RPh 04/27/25 19:34: MED REC REVIEWED BY [facility] Original Note: Pharmacy Consult ? Medication Reconciliation Pharmacy has completed the medication reconciliation. Got Med Box list in pt room to confirm most of pt med list; I called pt son Robby and he was able to confirm the rest of the medications. Per pt son, pt no longer taking the Tylenol 650mg tabs or Sucralfate 1g tabs. Pt son confirmed pt took her medications last yesterday.
[2025-04-27 21:22] LABS: MANUAL DIFF FLAG NO
[2025-04-27 21:26] LABS: Hematocrit 27.1 % (37.0-47.0); Hemoglobin 9.0 g/dl (12.0-16.0); Imm Gran Abs Auto 0.02 X10*3/uL (0.00-0.03); Imm Gran Pct Auto 0.3 % (0.0-0.4); Lymphocytes Absolute Auto 3.7 X10*3/uL (1.2-4.9); Mean Corpuscular HGB Conc 33.2 g/dl (31.0-35.0); Mean Corpuscular Hemoglobin 30.6 pg (27.0-33.0); Mean Corpuscular Volume 92.2 fL (80.0-98.0); NRBC Abs Auto 0.000 X10*3/uL (0.0-0.012); NRBC Pct Auto 0.0 /100WBC (0.0-0.2); Platelet Count 292 X10*3/uL (160-400); Red Blood Count 2.94 X10*6/uL (4.20-5.50); White Blood Count 7.5 X10*3/uL (4.8-10.8)
[2025-04-28] VITALS (9 sets, daily range): BP systolic 99–129; BP diastolic 49–90; PULSE 57–68; RESP 14–19; TEMP 36.1–37.2; O2SAT 94–100; BMI 18.6
[2025-04-28] MEDS: Lactated Ringers 1,000 ML 125 ML IVCONT ×4 (01:55→23:59)
--- NOTE | 2025-04-28 08:21 | HO.ANESPROP2 ---
Documented by User: Bushra Beavers NP 04/28/25 08:31 HPI - Anesthesia Eval Consult details Narrative: 84 yr old female for upper endoscopy No recent illness No CP/SOB CAD: pt is poor historian, ?no cardiology care, not on blood thinners s/p upper endoscopy with MAC 01/2025 [facility] Active Problems Active Problems: All Active Problems Odynophagia (Acute) Nausea & vomiting (Acute) Acute upper GI bleed (Acute) Diastolic murmur (Acute) Ellie glabrata infection (Acute) Gastritis (Acute) Gastric ulcer (Acute) Weakness (Acute) Acute hypokalemia (Acute) Acute UTI (Acute) Rotator cuff arthropathy of right shoulder (Acute) Metacarpal bone fracture (Acute) Ulnar shaft fracture (Acute) COVID-19 (Acute) Fracture of distal end of right radius with routine healing (Acute) Distal radius fracture, right (Acute) Nausea & vomiting (Acute) Dementia (Acute) Gallstones (Acute) Abnormal nuclear stress test (Acute) HLD (hyperlipidemia) (Acute) CVA, old, disturbances of vision (Acute ~09/2019) NSTEMI (non-ST elevated myocardial infarction) (Acute) Past Medical History Medical History Systolic murmur Emphysematous cystitis Anemia Cholecystitis Esophagitis Weight loss Candidiasis, esophageal Nausea & vomiting Gallstones Abnormal nuclear stress test HLD (hyperlipidemia) HTN (hypertension) CVA, old, disturbances of vision (~09/2019) NSTEMI (non-ST elevated myocardial infarction) Dementia Coronary artery disease Family History Family History Father No problems noted. Mother No problems noted. Family history of problems with anesthesia: No Surgical History Surgical History Previous section H/O eye surgery History of esophagogastroduodenoscopy (EGD) History of Problems with Anesthesia: No Social History Social History Household Members: Children Housing: Apartment Are you a primary patient centered care specialist to a significant other at home: No Do you presently have visiting nurse or other home services: No Unable to assess alcohol history related to: Unable to respond and Unknown Alcohol intake: never Comment: 1:1 sitter Patient Tobacco Use Status: Former Tobacco user Tobacco use type: Smokeless Tobacco Years Smoked: Chews tobacco e-Cigarette/Vaping Use: Never Used Second Hand Smoke Exposure: No Currently Displaying Signs/Symptoms of Drug Intoxication Withdrawal: No Have you been hit, kicked, punched, or otherwise hurt by someone within the past year? 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 Meds Allergies Allergy/AdvReac Type Severity Reaction Status Date / Time No Known Allergies (NO KNOWN Allergy Unknown UNKNOWN Verified 04/27/25 05:13 ALLERGIES) Active Medications: Current Medications Acetaminophen (Acetaminophen 325 Mg Tablet) 650 mg PO Q6H PRN PRN Reason: Pain, Mild 1-3,fever,headache Al Hydroxide/Mg Hydroxide (Magnesium Hydrox/Alum Hydrox 30 Ml Oral.Susp) 30 ml PO Q4H PRN PRN Reason: Heartburn Calcium Carbonate (Calcium Carbonate 750 Mg Tab.Chew) 750 mg PO Q4H PRN PRN Reason: Heartburn Lactated Ringer's (Lr) 1,000 mls @ 125 mls/hr IVCONT .Q8H COUNTS INCLUDE 234 BEDS AT THE [facility] Last Admin: 04/28/25 01:55 Dose: 125 mls/hr Magnesium Hydroxide (Milk Of Magnesia 30 Ml Oral.Susp) 30 ml PO DAILY PRN PRN Reason: Constipation Melatonin (Melatonin 3 Mg Tablet) 6 mg PO BEDTIME PRN PRN Reason: Insomnia Ondansetron HCl (Ondansetron Hcl 4 Mg/2 Ml Vial) 4 mg IVPUSH Q8H PRN PRN Reason: Nausea and Vomiting Pantoprazole Sodium (Pantoprazole Sodium 40 Mg/10 Ml Vial) 40 mg IVPUSH BID@0630,1630 COUNTS INCLUDE 234 BEDS AT THE [facility] Last Admin: 04/28/25 06:04 Dose: 40 mg Polyethylene Glycol (Polyethylene Glycol 3350 17 Gm Powd.Pack) 17 gm PO DAILY PRN PRN Reason: Constipation Polyethylene Glycol (Polyethylene Glycol 3350 17 Gm Powd.Pack) 17 gm PO TID COUNTS INCLUDE 234 BEDS AT THE [facility] Last Admin: 04/28/25 07:24 Dose: Not Given Sodium Chloride (0.9 % Sodium Chloride Flush 3 Ml Syringe) 3 ml IVFLUSH QSHIFT COUNTS INCLUDE 234 BEDS AT THE [facility] Last Admin: 04/28/25 07:24 Dose: Not Given Home Medications ?Medication ?Instructions ?Recorded ?Confirmed ?Last Taken ?Type albuterol sulfate 90 mcg/actuation 2 puff PO Q4H PRN Wheezing 06/27/21 04/27/25 Unknown History aerosol inhaler mirtazapine 30 mg tablet 30 mg PO BEDTIME 06/27/21 04/27/25 04/26/25 History sertraline 25 mg tablet 1 tab PO DAILY 06/27/21 04/27/25 04/26/25 History amitriptyline 10 mg tablet 10 mg PO BEDTIME 01/22/25 04/27/25 04/26/25 History atorvastatin 40 mg tablet 40 mg PO DAILY 01/22/25 04/27/25 04/26/25 History multivitamin 1 tab PO DAILY 01/22/25 04/27/25 04/26/25 History calcium 500 mg (as 1 tab PO BID 04/27/25 04/27/25 04/26/25 History carbonate)-vitamin D3 10 mcg (400 unit) tablet (Oyster Shell Calcium-Vitamin D3) clopidogrel 75 mg tablet 75 mg PO DAILY 04/27/25 04/27/25 Unknown History polyethylene glycol 3350 17 17 g PO BID PRN Constipation 04/27/25 04/27/25 Unknown History gram/dose oral powder (Miralax) Exam Height,Weight and Vital Signs: Height 4 ft 9 in Weight 39 kg Last Vital Signs Temp 97.1 F 04/28/25 08:00 Pulse 61 04/28/25 08:00 Resp 16 04/28/25 08:00 BP 102/59 L 04/28/25 08:00 Pulse Ox 97 04/28/25 08:00 O2 Del Method Room Air 04/28/25 08:00 Pertinent Lab Results Pertinent Lab Results: Laboratory Tests 04/27/25 04/27/25 04/27/25 07:52 08:15 13:00 WBC 7.3 8.0 RBC 3.73 L 3.12 L Hgb 11.3 L 9.5 L Hct 34.3 L 29.3 L MCV 92.0 93.9 MCH 30.3 30.4 MCHC 32.9 32.4 RDW 14.4 14.6 Plt Count 350 305 MPV 11.5 11.4 Immature Gran % (Auto) 0.3 0.1 Neut % (Auto) 64.7 51.9 Lymph % (Auto) 23.8 34.5 [place] % (Auto) 9.4 11.1 H Eos % (Auto) 1.4 1.9 Baso % (Auto) 0.4 0.5 Lymph # (Auto) 1.7 2.8 [place] # (Auto) 0.7 0.9 Eos # (Auto) 0.1 0.2 Baso # (Auto) 0.0 0.0 Abs Immat Gran (auto) 0.02 0.01 Absolute Neuts (auto) 4.7 4.2 Absolute Nucleated RBC 0.000 0.000 Nucleated RBC % (auto) 0.0 0.0 Sodium 135 Potassium 4.3 D Chloride 104 Carbon Dioxide 26 Anion Gap 9 L BUN 14 Creatinine 0.53 Estim Creat Clear Calc 48.1 Estimated GFR > 60 Random Glucose 155 H Calcium 9.3 D Magnesium 2.1 Total Bilirubin 0.1 AST 21 ALT 11 Alkaline Phosphatase 94 Troponin I High Sens 4.6 Total Protein 7.2 Albumin 3.8 04/27/25 21:12 WBC 7.5 RBC 2.94 L Hgb 9.0 L Hct 27.1 L MCV 92.2 MCH 30.6 MCHC 33.2 RDW 14.6 Plt Count 292 MPV 11.5 Immature Gran % (Auto) 0.3 Neut % (Auto) 31.6 L Lymph % (Auto) 49.6 H [place] % (Auto) 13.1 H Eos % (Auto) 4.7 H Baso % (Auto) 0.7 Lymph # (Auto) 3.7 [place] # (Auto) 1.0 Eos # (Auto) 0.4 Baso # (Auto) 0.1 Abs Immat Gran (auto) 0.02 Absolute Neuts (auto) 2.4 Absolute Nucleated RBC 0.000 Nucleated RBC % (auto) 0.0 Sodium Potassium Chloride Carbon Dioxide Anion Gap BUN Creatinine Estim Creat Clear Calc Estimated GFR Random Glucose Calcium Magnesium Total Bilirubin AST ALT Alkaline Phosphatase Troponin I High Sens Total Protein Albumin Narrative Narrative: EKG 724/25 Vent. Rate : 74 BPM Atrial Rate : 74 BPM P-R Int : 138 ms QRS Dur : 74 ms QT Int : 422 ms P-R-T Axes : 51 17 46 degrees QTcB Int : 468 ms Normal sinus rhythm Normal ECG When compared with ECG of 31-Mar-2025 14:51, Criteria for Anterior infarct are no longer Present Criteria for Anterolateral infarct are no longer Present Airway Mallampati Class: III TM Dist: >3cm Neck ROM: Limited Loose/Missing/Broken Teeth: Yes (M), Upper and Lower Heart: RRR distant heart sounds Lungs: CTAB Assessment and Plan Final Anesthetic Review Family History of Problems with Anesthesia: No History of Problems with Anesthesia: No Documented by User: Moises Fleming MD 04/28/25 13:55 HPI - Anesthesia Eval Consult details Narrative: 84 yr old female for upper endoscopy No recent illness No CP/SOB CAD: Severe alzheimers dementia. Doesn't eat solid food. 39 kg. Walks very little w a walker. pt is poor historian, ?no cardiology care, not on blood thinners s/p upper endoscopy with MAC 01/2025 [facility] Past Medical History Medical History Systolic murmur Emphysematous cystitis Anemia Cholecystitis Esophagitis Weight loss Candidiasis, esophageal Nausea & vomiting Gallstones Abnormal nuclear stress test HLD (hyperlipidemia) HTN (hypertension) CVA, old, disturbances of vision (~09/2019) NSTEMI (non-ST elevated myocardial infarction) Dementia Coronary artery disease Family History Family History Father No problems noted. Mother No problems noted. Surgical History Surgical History Previous section H/O eye surgery History of esophagogastroduodenoscopy (EGD) Social History Social History Household Members: Children Housing: Apartment Are you a primary patient centered care specialist to a significant other at home: No Do you presently have visiting nurse or other home services: No Unable to assess alcohol history related to: Unable to respond and Unknown Alcohol intake: never Comment: 1:1 sitter Patient Tobacco Use Status: Former Tobacco user Tobacco use type: Smokeless Tobacco Years Smoked: Chews tobacco e-Cigarette/Vaping Use: Never Used Second Hand Smoke Exposure: No Currently Displaying Signs/Symptoms of Drug Intoxication Withdrawal: No Have you been hit, kicked, punched, or otherwise hurt by someone within the past year? 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 Meds Allergies Allergy/AdvReac Type Severity Reaction Status Date / Time No Known Allergies (NO KNOWN Allergy Unknown UNKNOWN Verified 04/27/25 05:13 ALLERGIES) Home Medications ?Medication ?Instructions ?Recorded ?Confirmed ?Last Taken ?Type albuterol sulfate 90 mcg/actuation 2 puff PO Q4H PRN Wheezing 06/27/21 04/27/25 Unknown History aerosol inhaler mirtazapine 30 mg tablet 30 mg PO BEDTIME 06/27/21 04/27/25 04/26/25 History sertraline 25 mg tablet 1 tab PO DAILY 06/27/21 04/27/25 04/26/25 History amitriptyline 10 mg tablet 10 mg PO BEDTIME 01/22/25 04/27/25 04/26/25 History atorvastatin 40 mg tablet 40 mg PO DAILY 01/22/25 04/27/25 04/26/25 History multivitamin 1 tab PO DAILY 01/22/25 04/27/25 04/26/25 History calcium 500 mg (as 1 tab PO BID 04/27/25 04/27/25 04/26/25 History carbonate)-vitamin D3 10 mcg (400 unit) tablet (Oyster Shell Calcium-Vitamin D3) clopidogrel 75 mg tablet 75 mg PO DAILY 04/27/25 04/27/25 Unknown History polyethylene glycol 3350 17 17 g PO BID PRN Constipation 04/27/25 04/27/25 Unknown History gram/dose oral powder (Miralax) Exam Airway Heart: RRR distant heart sounds. Soft mid-late peaking 1/6 crescendo-decrescendo syst murm at LSB. Unable to adequately assess pulse quality Lungs: CTAB. Sat 97% on room air. Assessment and Plan Assessment Anesthesia Assessment: Anesthesia Plan Discussed and Chart Reviewed Final Anesthetic Review NPO: Yes ASA Class: IV Final Preanesthetic Review: No Changes in Pt Med Stat, Meds/Allgs Chart Reviewed, Consent Obtained/Reviewed and Anes Risks/Benef Reviewed Patient Risk: High (Needs echo to r/o .) Procedure Risk: Intermediate Anesthetic Plan Anesthetic Plan: Agree w/ Assess. and Plan and TIVA Disposition: Standard PACU
--- NOTE | 2025-04-28 11:02 | MHC.CLN ---
NUTRITION CURRENTLY NPO. PER ADM HX, PATIENT HAD BEEN TAKING MILK, JUICE, WATER, SOUP AND NO OTHER FOODS. SHOWS WEIGHT LOSS X 3 MONTHS -8.2% AND WEIGHT LOSS X 6 MONTHS -11%. QUALIFIES MODERATELY MALNOURISHED IN THE CONTEXT OF CHRONIC ILLNESS BASED ON POOR PO, WEIGHT LOSS AND MILD DEPLETION OF BODY FAT AND MUSCLE MASS. FOLLOW FOR DIET ADVANCEMENT, PO TOLERANCE AND INTAKE AT MEALS. SEE CLINICAL NUTRITION ASSESSMENT 04/28/25.
--- NOTE | 2025-04-28 12:09 | HO.PM.IMPN ---
Subjective Subjective Date of Service: 04/28/25 Interval History: f/u abdominal pain, anemia, Physical Exam Vital Signs: Vital Signs: Last Vital Signs Temp 97.1 F 04/28/25 08:00 Pulse 61 04/28/25 08:00 Resp 16 04/28/25 08:00 BP 102/59 L 04/28/25 08:00 Pulse Ox 97 04/28/25 08:00 O2 Del Method Room Air 04/28/25 08:00 BMI result Body Mass Index 18.6 General: Alert, no acute distress, baseline confusion Resp: CTA bilateral CVS: S1,S2,RRR GI: +BS, NT, no distention Skin: No rash Neuro: motor grossly intact Psych: appropriate affect Objective Data Active Medications Acetaminophen (Acetaminophen 325 Mg Tablet) 650 mg PO Q6H PRN PRN Reason: Pain, Mild 1-3,fever,headache Al Hydroxide/Mg Hydroxide (Magnesium Hydrox/Alum Hydrox 30 Ml Oral.Susp) 30 ml PO Q4H PRN PRN Reason: Heartburn Calcium Carbonate (Calcium Carbonate 750 Mg Tab.Chew) 750 mg PO Q4H PRN PRN Reason: Heartburn Lactated Ringer's (Lr) 1,000 mls @ 125 mls/hr IVCONT .Q8H [facility] Last Admin: 04/28/25 10:23 Dose: 125 mls/hr Documented By: GUNNAR Magnesium Hydroxide (Milk Of Magnesia 30 Ml Oral.Susp) 30 ml PO DAILY PRN PRN Reason: Constipation Melatonin (Melatonin 3 Mg Tablet) 6 mg PO BEDTIME PRN PRN Reason: Insomnia Ondansetron HCl (Ondansetron Hcl 4 Mg/2 Ml Vial) 4 mg IVPUSH Q8H PRN PRN Reason: Nausea and Vomiting Pantoprazole Sodium (Pantoprazole Sodium 40 Mg/10 Ml Vial) 40 mg IVPUSH BID@0630,1630 [facility] Last Admin: 04/28/25 06:04 Dose: 40 mg Documented By: SANDER Polyethylene Glycol (Polyethylene Glycol 3350 17 Gm Powd.Pack) 17 gm PO DAILY PRN PRN Reason: Constipation Polyethylene Glycol (Polyethylene Glycol 3350 17 Gm Powd.Pack) 17 gm PO TID [facility] Last Admin: 04/28/25 07:24 Dose: Not Given Documented By: GUNNAR Non-Admin Reason: NPO Sodium Chloride (0.9 % Sodium Chloride Flush 3 Ml Syringe) 3 ml IVFLUSH QSHIFT TAL Last Admin: 04/28/25 07:24 Dose: Not Given Documented By: GUNNAR Non-Admin Reason: IV Running Labs 04/27/25 21:12 04/27/25 07:52 Labs: Laboratory Results - last 24 hr 04/27/25 04/27/25 13:00 21:12 MCV 93.9 92.2 MCH 30.4 30.6 MCHC 32.4 33.2 RDW 14.6 14.6 Plt Count 305 292 MPV 11.4 11.5 Immature Gran % (Auto) 0.1 0.3 Neut % (Auto) 51.9 31.6 L Lymph % (Auto) 34.5 49.6 H [place] % (Auto) 11.1 H 13.1 H Eos % (Auto) 1.9 4.7 H Baso % (Auto) 0.5 0.7 Lymph # (Auto) 2.8 3.7 [place] # (Auto) 0.9 1.0 Eos # (Auto) 0.2 0.4 Baso # (Auto) 0.0 0.1 Abs Immat Gran (auto) 0.01 0.02 Absolute Neuts (auto) 4.2 2.4 Absolute Nucleated RBC 0.000 0.000 Nucleated RBC % (auto) 0.0 0.0 Assessment and Plan (1) Acute upper GI bleed: Status: Acute Plan 84-year-old female with pertinent history of CVA, HTN, HLD,CAD, Alzheimers dementia, history of NSTEMI no stent, history of UGI bleeding, history of Ellie glabrata esophagitis in December who was brought to the emergency department via EMS for evaluation of abdominal pain and emesis. She will be admitted for further management. Medication reconciliation not completed at time of visit Abdominal pain/?Upper GI bleed/Vomiting Continue IV PPI, anti emetics IVF For EGD today Acute blood loss anemia, H/H stable, no indication for transfusion IV PPI and EGD as above HTN/HLD Hold home Blood pressure medication due to soft BP Resume as appropriate Alzheimers Dementia Poor Historian Continue supportive care. CODE STATUS FULL CODE DVT PROPHY: Sequentials Quality Stroke Does the patient have a stroke diagnosis?: No VTE Prior VTE?: No VTE Risk Level:: Medical - moderate - high VTE Device Contraindication: N/A - Device Ordered VTE Drug Contraindication: Treatment Not Indicated
--- NOTE | 2025-04-28 13:50 | CA_ITS ---
Transthoracic Echocardiogram Patient (Last, First, Middle): Elisa Weaver, Gender: Female Date of : 1940 Age: 84 Procedure Date: 04/28/2025 Procedure Type: Transthoracic Echocardiogram Location: [facility] [place] Height: 144.78 cm Weight: 38.56 kg BSA: 1.25 m2 Heart Rate: bpm BP: 129 / 70 mmHg Brick Dropper: Referring MD: Moises Fleming MD Symptoms: R/o aortic stenosis Study Quality: Technically Difficult ECG Rhythm: Sinus Conclusions: - Limited study performed on the patient before she went to operating room. - No evidence of aortic valve stenosis based on this limited study. Findings Left Ventricle Normal left ventricular size and systolic function. The visually estimated ejection fraction is between 55-60%. Right Ventricle Normal right ventricular cavity size and systolic function. Aortic Valve The aortic valve was not well visualized. There is no aortic valve stenosis. There is no aortic valve regurgitation. Measurements 2D Linear Measurements LVOT Diam: 1.50 3.0+(-)1.3 cm Aortic Valve AoV Pk Medardo: 1.52 AoV Mn Medardo: 1.31 AoV VTI: 0.41 AoV Pk Grad: 9.00 Aov Mn Grad: 7.00 LVOT LVOT Diam: 1.50 LVOT Area: 1.77 Updated in Other Vendor System with Status of Final Chun Pritchett MD electronically signed on 04/29/2025 12:27:07 PM with status of Final
--- NOTE | 2025-04-28 14:22 | MHC.SHP ---
Pre-Procedural Eval Section A - 24 Hr Update-Section A only Date of Service: 04/28/25 The patient is an INPATIENT: Yes Changes since office visit: Yes New Medical Problems, Yes Changes in Medication and Yes Patient answered all questions; No Cold of Flu in the past 2 weeks The patient has been examined within 24 hours of the surgical procedure. The History & Physical has been completed within 30 days and I have reviewed it.: Yes Section B - Complete if H&P > 30 days Chief Complaint: Faliure to thrive Malnutrition Allergies: Allergies Allergy/AdvReac Type Severity Reaction Status Date / Time No Known Allergies (NO KNOWN Allergy Unknown UNKNOWN Verified 04/27/25 05:13 ALLERGIES) Plan Diagnosis/Plan: Unchanged I have reviewed the history and physical and performed a pertinent physical examination on my patient. No changes have occurred unless specified. Time Spent With Patient Time: Total time managing care of this patient today ____ minutes.
--- NOTE | 2025-04-28 14:32 | P.OP_ITS ---
Operative Note Operative Note Date of Service: 04/28/25 Narrative: FLEXIBLE TRANSORAL UPPER GASTROINTESTINAL ENDOSCOPY WITH BIOPSIES Pre-op diagnosis: Epigastric pain, Dysphagia, failure to thrive Post-op diagnosis: Severe esophagitis, hiatal henria, esophageal nodule Endoscopist:? Shannon Aragon MD Anesthesia:?MAC UPPER ENDOSCOPY Consent: Indications for the procedure and potential complications of bleeding, perforation, reaction to medications and missed diagnosis were discussed with the patient and informed consent was obtained. Instrument: Olympus GIF H 190 mid size upper endoscope Monitoring: Vital signs and clinical assessment, continuous EKG monitoring, Pulse oximetry, Carbon Dioxide monitoring and blood pressure monitoring were done throughout the procedure. Procedure: The patient was placed in the left lateral decubitis position and pre-procedure medications were administered and a bite block was placed. The endoscope was inserted into the mouth and advanced under direct vision to the third part of duodenum. A careful inspection was made as the upper endoscope was withdrawn including a retroflexed examination of the proximal stomach; Findings and interventions are described below. Findings: Larynx: Normal Esophagus: GE junction at 30 cms, hiatal hernia 30 to 33 cms. A 10 mm benign appearing nodule on gastric side of GE junction - biopsied. Severe esophagitis from 20 to 30 cms with thick white exudate - biopsies were obtained. Exudate appeared to be blocking the distal esophagus - suctioned. Brushings were obtained from the esophagus to check for Ellie esophagitis Stomach: Moderate diffuse gastric erythema - past antral biopsies were negative for H pylori Grade 3 flap valve on retroflexed examination of the cardia. Duodenum: Normal bulb and descending duodenum Intervention: Biopsies and esophageal brushings as noted above Impression and Post Procedure Diagnosis: Endoscopy Findings: ESOPHAGUS: Hiatal hernia, benign appearing nodule on gastric side of GE junction. Severe esophagitis from 20 to 30 cms with thick white exudate - biopsies and brushings were obtained. Exudate appeared to be blocking the distal esophagus - suctioned. STOMACH: Diffuse gastritis DUODENUM: Normal Plan: [place] of clear liquid diet and if tolerated advance to pureed diet. Continue Pantoprazole 40 mg twice daily. Patient has a follow-up appointment with Dr. Aragon in the GI clinic on 05/11/2025. Above findings were reviewed with the patient and relevant handouts were given and the discharge area. BIOPSIES SHOWED: A. Esophagus, nodule, biopsy: - Cardiac-type mucosa with mild chronic inactive inflammation; no intestinal metaplasia seen. - Negative for H. pylori. - Active esophagitis (neutrophils); no fungi identified. B. Esophagus, distal, biopsy: Fragments of ulcer bed only; no viable epithelium identified; no fungi identified. No growth on fungal cultures
--- NOTE | 2025-04-28 14:36 | MHC.CM.PN ---
IMM 04/28/25 DX FTT She lives with her son. [facility] Dementia MULTIMEDIA COORDINATOR services in place. Cane +Walker in home. Patient stays in bed most of the time. Patient is scheduled for an endoscopy today. DP home with family support + resumption of MULTIMEDIA COORDINATOR services. She will likely need S transport home.
[2025-04-28] MEDS: 0.9 % Sodium Chloride Flush 3 ML SYRINGE IVFLUSH (16:30)
[2025-04-29 03:12] VITALS: BP 124/62; PULSE 61; RESP 16; TEMP 36.4; O2SAT 99
[2025-04-29 07:42] VITALS: BP 108/56; PULSE 70; RESP 16; TEMP 36.9; O2SAT 98
[2025-04-29] MEDS: Lactated Ringers 1,000 ML 125 ML IVCONT (08:07)
--- NOTE | 2025-04-29 08:53 | HO.PM.IMPN ---
Subjective Subjective Date of Service: 04/29/25 Interval History: No report of abdominal pain no new issues Physical Exam Vital Signs: Vital Signs: Last Vital Signs Temp 98.4 F 04/29/25 07:42 Pulse 70 04/29/25 07:42 Resp 16 04/29/25 07:42 BP 108/56 L 04/29/25 07:42 Pulse Ox 98 04/29/25 07:42 O2 Del Method Room Air 04/29/25 07:42 BMI result Body Mass Index 18.6 General: Alert, no acute distress, baseline confusion Resp: CTA bilateral CVS: S1,S2,RRR GI: +BS, NT, no distention Skin: No rash Neuro: motor grossly intact Psych: appropriate affect Objective Data Active Medications Acetaminophen (Acetaminophen 325 Mg Tablet) 650 mg PO Q6H PRN PRN Reason: Pain, Mild 1-3,fever,headache Al Hydroxide/Mg Hydroxide (Magnesium Hydrox/Alum Hydrox 30 Ml Oral.Susp) 30 ml PO Q4H PRN PRN Reason: Heartburn Calcium Carbonate (Calcium Carbonate 750 Mg Tab.Chew) 750 mg PO Q4H PRN PRN Reason: Heartburn Lactated Ringer's (Lr) 1,000 mls @ 125 mls/hr IVCONT .Q8H [facility] Last Admin: 04/29/25 08:07 Dose: 125 mls/hr Documented By: ANYA Magnesium Hydroxide (Milk Of Magnesia 30 Ml Oral.Susp) 30 ml PO DAILY PRN PRN Reason: Constipation Melatonin (Melatonin 3 Mg Tablet) 6 mg PO BEDTIME PRN PRN Reason: Insomnia Naloxone HCl (Naloxone Hcl 0.4 Mg/Ml Vial) 0.04 mg IVPUSH Q5M PRN PRN Reason: Excessive sedation or RR < 8 Ondansetron HCl (Ondansetron Hcl 4 Mg/2 Ml Vial) 4 mg IVPUSH Q8H PRN PRN Reason: Nausea and Vomiting Pantoprazole Sodium (Pantoprazole Sodium 40 Mg/10 Ml Vial) 40 mg IVPUSH BID@0630,1630 [facility] Last Admin: 04/29/25 06:36 Dose: 40 mg Documented By: YUNG Polyethylene Glycol (Polyethylene Glycol 3350 17 Gm Powd.Pack) 17 gm PO DAILY PRN PRN Reason: Constipation Polyethylene Glycol (Polyethylene Glycol 3350 17 Gm Powd.Pack) 17 gm PO TID [facility] Last Admin: 04/29/25 08:12 Dose: 17 gm Documented By: ANYA Sodium Chloride (0.9 % Sodium Chloride Flush 3 Ml Syringe) 3 ml IVFLUSH QSHIFT [facility] Last Admin: 04/29/25 08:07 Dose: Not Given Documented By: ANYA Non-Admin Reason: IV Running Labs 04/27/25 21:12 04/27/25 07:52 Assessment and Plan (1) Acute upper GI bleed: Status: Acute Plan 84-year-old female with pertinent history of CVA, HTN, HLD,CAD, Alzheimers dementia, history of NSTEMI no stent, history of UGI bleeding, history of Ellie glabrata esophagitis in December who was brought to the emergency department via EMS for evaluation of abdominal pain and emesis. She will be admitted for further management. Medication reconciliation not completed at time of visit Abdominal pain/?Upper GI bleed/Vomiting IV PPI to PO PPI EGD 04/27: esophagitis with thick white exhudate and diffuse gastritis Starting on liquid diet and advance as yuan to Puree Acute blood loss anemia, H/H stable has trended down but no indication for transfusion, check cbc PPI as above HTN/HLD Statin, hold BP d/t low BPs Alzheimers Dementia Poor Historian Continue supportive care. CODE STATUS FULL CODE DVT PROPHY: Sequentials Quality Stroke Does the patient have a stroke diagnosis?: No VTE Prior VTE?: No VTE Risk Level:: Medical - moderate - high VTE Device Contraindication: N/A - Device Ordered VTE Drug Contraindication: Treatment Not Indicated
[2025-04-29 10:25] LABS: Hematocrit 31.1 % (37.0-47.0); Hemoglobin 10.1 g/dl (12.0-16.0); Mean Corpuscular HGB Conc 32.5 g/dl (31.0-35.0); Mean Corpuscular Hemoglobin 30.3 pg (27.0-33.0); Mean Corpuscular Volume 93.4 fL (80.0-98.0); NRBC Abs Auto 0.000 X10*3/uL (0.0-0.012); NRBC Pct Auto 0.0 /100WBC (0.0-0.2); Platelet Count 327 X10*3/uL (160-400); Red Blood Count 3.33 X10*6/uL (4.20-5.50); White Blood Count 5.5 X10*3/uL (4.8-10.8)
--- NOTE | 2025-04-29 11:39 | MHC.SL.SWA ---
Speech Pathologist Impression: Risk of Aspiration, Oropharyngeal Dysphagia, Pharyngoesophageal Dysphagia Risk of Aspiration Due to: Reduced Cognition Dysphasia Diet Status: Pt on Clear Liquids Liquid Consistency and Strategies for Safe Swallow: Liquid Intake Recommendation: Thin Solid Food Consistency: Dietary Recommendations: Pureed (NDD1) Additional Modifications to Solid Foods: Patient is admitted w/ upper GI bleed, EGD 04/27 showing esophagitis with thick white exhudate and diffuse gastritis. On assessment today, patient presents with mild oral phase dysphagia, with lack of dentition, behavior of oral holding on solids and liquids, but with good clearance post-swallow. Pharyngeal swallow trigger was mildly delayed. No overt s/s of aspiration observed with trials of thin and puree consistencies. Patient was recommended per Surgery to first trial liquid diet, patient presently on Clear Liquid Diet, and to advance to puree if tolerated. Patient tolerated these consistencies well on clinical swallow exam. Once cleared per MD to start on semi-solid, recommend PUREED (NDD1) solids and THIN liquids, pills CRUSHED in PUREE. Patient attempts to feed herself, but exhibited some maladaptive behaviors (i.e. squeezing cup, putting fingers in juice) and will need assistance throughout meals. Oral Medication Intake: Crushed with Puree Please contact the pharmacy regarding appropriate crushable or liquid drug formulations that are available whenever modified delivery is recommended. Supervision While Eating and Drinking for Safe Swallow: Total Assistance (1:1) Recommendation for Speech: Inpatient Speech Therapy Comment: FIELD INSTRUCTOR will continue to follow while inpatient. Frequency/Duration: M-F Date Range for Service Req: Timeline to reassess: Jewel Hole Cornerer Clinican/Clinical Fellow: No Supervisory Statement: I have reviewed and agree with the student/clinical fellow's documentation: N/A Speech Language Pathologist: Nieves Coronado M.A., CCC-FIELD INSTRUCTOR
[2025-04-29 15:13] VITALS: BP 124/74; PULSE 72; RESP 18; TEMP 36.1; O2SAT 97
--- NOTE | 2025-04-29 15:51 | HO.POSTANES ---
Post Anesthesia Evaluation Post Anesthesia Evaluation Date of Service: 04/29/25 Vital Signs: Vital Signs Temp Pulse Resp BP Pulse Ox O2 Del Method 04/29/25 15:13 97.0 F 72 18 124/74 97 Room Air 04/29/25 07:42 98.4 F 70 16 108/56 L 98 Room Air Anesthesia: Monitored Mental Status: Awake Pain Control: Satisfactory Nausea/Vomiting: None Hydration: Adequate Anesthesia-Related Issues: No Anes. Related Issues
[2025-04-29 19:37] VITALS: BP 142/61; PULSE 83; RESP 16; TEMP 36.8; O2SAT 98
[2025-04-29] MEDS: 0.9 % Sodium Chloride Flush 3 ML SYRINGE IVFLUSH (21:17)
[2025-04-29] MEDS: Calcium + Vitamin D 250 MG TABLET PO (21:17)
[2025-04-30 04:00] VITALS: BP 118/65; PULSE 73; RESP 18; TEMP 36.4; O2SAT 99
[2025-04-30 07:30] VITALS: BP 110/56; PULSE 65; RESP 16; TEMP 36.6; O2SAT 98
[2025-04-30] MEDS: 0.9 % Sodium Chloride Flush 3 ML SYRINGE IVFLUSH (08:45)
[2025-04-30] MEDS: Calcium + Vitamin D 250 MG TABLET PO (08:45)
--- NOTE | 2025-04-30 08:54 | P.PNIM_ITS ---
Subjective Subjective Date of Service: 04/30/25 Interval History: No new issues, tolerating present diet but not eating much Physical Exam 2 Vital Signs: Vital Signs: Last Vital Signs Temp 97.9 F 04/30/25 07:30 Pulse 65 04/30/25 07:30 Resp 16 04/30/25 07:30 BP 110/56 L 04/30/25 07:30 Pulse Ox 98 04/30/25 07:30 O2 Del Method Room Air 04/30/25 07:30 BMI result Body Mass Index 18.6 General: Alert, no acute distress, baseline confusion Resp: CTA bilateral CVS: S1,S2,RRR GI: +BS, NT, no distention Skin: No rash Neuro: motor grossly intact Psych: appropriate affect Objective Data Active Medications Acetaminophen (Acetaminophen 325 Mg Tablet) 650 mg PO Q6H PRN PRN Reason: Pain, Mild 1-3,fever,headache Al Hydroxide/Mg Hydroxide (Magnesium Hydrox/Alum Hydrox 30 Ml Oral.Susp) 30 ml PO Q4H PRN PRN Reason: Heartburn Albuterol Sulfate (Albuterol Sulfate 90 Mcg 8 Gm Inhaler) 2 puff INHALE Q4H PRN PRN Reason: Wheezing Amitriptyline HCl (Amitriptyline Hcl 10 Mg Tablet) 10 mg PO BEDTIME [facility] Last Admin: 04/29/25 21:17 Dose: 10 mg Documented By: OLGA Atorvastatin Calcium (Atorvastatin Calcium 40 Mg Tablet) 40 mg PO DAILY [facility] Last Admin: 04/30/25 08:45 Dose: 40 mg Documented By: ANYA Calcium Carbonate (Calcium Carbonate 750 Mg Tab.Chew) 750 mg PO Q4H PRN PRN Reason: Heartburn Calcium Carbonate/Cholecalciferol (Calcium + Vitamin D 250 Mg Tablet) 250 mg PO BID [facility] Last Admin: 04/30/25 08:45 Dose: 250 mg Documented By: ANYA Magnesium Hydroxide (Milk Of Magnesia 30 Ml Oral.Susp) 30 ml PO DAILY PRN PRN Reason: Constipation Melatonin (Melatonin 3 Mg Tablet) 6 mg PO BEDTIME PRN PRN Reason: Insomnia Last Admin: 04/29/25 21:17 Dose: 6 mg Documented By: OLGA Mirtazapine (Mirtazapine 30 Mg Tablet) 30 mg PO BEDTIME [facility] Last Admin: 04/29/25 21:17 Dose: 30 mg Documented By: OLGA Multivitamins/Vitamin C (Multivitamin Tablet) 1 tab PO DAILY [facility] Last Admin: 04/30/25 08:45 Dose: 1 tab Documented By: ANYA Naloxone HCl (Naloxone Hcl 0.4 Mg/Ml Vial) 0.04 mg IVPUSH Q5M PRN PRN Reason: Excessive sedation or RR < 8 Ondansetron HCl (Ondansetron Hcl 4 Mg/2 Ml Vial) 4 mg IVPUSH Q8H PRN PRN Reason: Nausea and Vomiting Pantoprazole Sodium (Pantoprazole Sodium 40 Mg/10 Ml Vial) 40 mg IVPUSH BID@0630,1630 [facility] Last Admin: 04/30/25 05:39 Dose: 40 mg Documented By: OLGA Polyethylene Glycol (Polyethylene Glycol 3350 17 Gm Powd.Pack) 17 gm PO DAILY PRN PRN Reason: Constipation Polyethylene Glycol (Polyethylene Glycol 3350 17 Gm Powd.Pack) 17 gm PO TID [facility] Last Admin: 04/30/25 08:45 Dose: 17 gm Documented By: ANYA Polyethylene Glycol (Polyethylene Glycol 3350 17 Gm Powd.Pack) 17 gm PO BID PRN PRN Reason: Constipation Sertraline HCl (Sertraline Hcl 25 Mg Tablet) 25 mg PO DAILY [facility] Last Admin: 04/30/25 08:45 Dose: 25 mg Documented By: ANYA Sodium Chloride (0.9 % Sodium Chloride Flush 3 Ml Syringe) 3 ml IVFLUSH QSHIFT [facility] Last Admin: 04/30/25 08:45 Dose: 3 ml Documented By: ANYA Labs 04/29/25 09:17 04/27/25 07:52 Labs: Laboratory Results - last 24 hr 04/29/25 09:17 MCV 93.4 MCH 30.3 MCHC 32.5 RDW 14.9 Plt Count 327 MPV 11.8 Absolute Nucleated RBC 0.000 Nucleated RBC % (auto) 0.0 Hold Green Top See Note Assessment and Plan (1) Acute upper GI bleed: Status: Acute Plan 84-year-old female with pertinent history of CVA, HTN, HLD,CAD, Alzheimers dementia, history of NSTEMI no stent, history of UGI bleeding, history of Ellie glabrata esophagitis in December who was brought to the emergency department via EMS for evaluation of abdominal pain and emesis. She will be admitted for further management. Medication reconciliation not completed at time of visit Abdominal pain/?Upper GI bleed/Vomiting IV PPI, now PO PPI EGD 04/27: esophagitis with thick white exhudate and diffuse gastritis Started on liquid diet and advance as to Puree Acute blood loss anemia, H/H stable has trended down but no indication for transfusion, hgb 10 PPI as above HTN/HLD Statin, hold BP d/t low BPs Alzheimers Dementia Poor Historian Continue supportive care. CODE STATUS FULL CODE DVT PROPHY: Sequentials Dispo: home if tolerating present diet Quality Stroke Does the patient have a stroke diagnosis?: No VTE Prior VTE?: No VTE Risk Level:: Medical - moderate - high VTE Device Contraindication: N/A - Device Ordered VTE Drug Contraindication: Treatment Not Indicated
--- NOTE | 2025-04-30 11:09 | PM.DS ---
DS: Providers Provider Date of Service: 04/30/25 Date of admission: 04/27/25 11:01 Date of discharge: 04/30/25 Primary care physician: Stef Greer MD Consults: 04/27/25 11:25 Consult to Gastroenterology Routine Consulting Provider: Shannon Aragon Reason for consultation: Abdominal pain, ? Upper GI bleed DS: Diagnosis Discharge Diagnosis (1) Acute upper GI bleed: Status: Resolved DS: Summary Hospital Course Hospital Course: admission hpi Chief Complaint: Abdominal pain, vomiting 84 year old with PMH of Alzheimer dementia, esophagitis (erosive) stroke, HTN, HLD, CAD, history of CVA, history of NSTEMI, history of upper GI bleeding. Presented to ED via EMS with vomiting and abdominal pain. In the ED CT revealed marked wall thickening of the distal esophagus, cholelithiasis without evidence of biliary ductal dilatation and a large amount of stool through the colon. Recommend upper endoscopy for further evaluation. Received 1 L IVF, Zofran and pantoprazole in ED. H&H is stable at 11.3/34.3. Glucose slightly elevated, Troponin WNL. CMP otherwise unremarkable, no elevation in liver function . Last EGD 01/24/25 with moderate sized hiatal hernia and severe ulcerative esophagitis, with neg HSV< CMV and aaron stains. On exam she is pleasantly confused, reports upper epigastric pain. She is in no apparent distress. Her vitals are stable. No fever or tachycardia. Per ED patient has had 1 episode of vomiting, bile in appearance. Has been unable to keep anything down. The end of March patient was in the ED for abdominal pain and vomiting on 03/31/25, her workup was unremarkable and she was not admitted at that time. Patient was hospitalized in January, she was treated with IV PPI, she was discharged on PPI and Carafate, and it was recommended to discontinue her Plavix. Hospital course: 84-year-old female with pertinent history of CVA, HTN, HLD,CAD, Alzheimers dementia, history of NSTEMI no stent, history of UGI bleeding, history of Aaron glabrata esophagitis in December who was brought to the emergency department via EMS for evaluation of abdominal pain and emesis. She was admitted for further managment. Intially was made NPO and given IV hydration, IV PPI, she did not required transfusion, Plavix was held. She was seen by GI and had EGD done on 04/27 and noted to have esophagitis with thick white exhudate as well as diffuse gastritis. The exhudate was clear, and biopsy taking. Following the EGD she was started on clear liquid diet which has been advanced to Puree and thin liquid and seem to be tolerating it at this point. Acute blood loss anemia, H/H stable has trended down but no indication for transfusion, hgb 10 PPI as above HTN/HLD resume home medicatn Alzheimers Dementia Poor Historian Continue supportive care. Time Attestation Discharge Coordination Time (in mins): 40 Quality: Safe Use of Opioids Does Pt have an Active Cancer Diagnosis on the Problem List?: No Quality: Stroke Does the patient have a stroke diagnosis?: No Physical Exam Vital Signs: Vital Signs: Last Vital Signs Temp 97.9 F 04/30/25 07:30 Pulse 65 04/30/25 07:30 Resp 16 04/30/25 07:30 BP 110/56 L 04/30/25 07:30 Pulse Ox 98 04/30/25 07:30 O2 Del Method Room Air 04/30/25 07:30 BMI result Body Mass Index 18.6 DS: Data Data Completed and Pending Completed studies during hospitalization [Text1]: Procedures Excision of Esophagus, Via Natural or Artificial Opening Endoscopic, Diagnostic (08/04/24) Excision of Lower Esophagus, Via Natural or Artificial Opening Endoscopic, Diagnostic (01/21/25) Excision of Stomach, Pylorus, Via Natural or Artificial Opening Endoscopic, Diagnostic (08/04/24) Extraction of Esophagus, Via Natural or Artificial Opening Endoscopic, Diagnostic (08/04/24) Insertion of Infusion Device into Left Brachial Vein, Percutaneous Approach (12/21/24) Transfusion of Nonautologous Red Blood Cells into Peripheral Vein, Percutaneous Approach (01/21/25) Pending studies at discharge: Pending at discharge 04/28/25 15:04 Surgical [PTH] Routine Discharge Plan Discharge Anticipated Discharge Date/Time: 04/30/25 11:05 Patient Disposition: Home, Self-Care Discharge Diagnosis: Esophagitis, Gastritis, Dysphagia Referrals: Name,MD Stef [Primary Care Provider, Internal Medicine] - 1 Week Discharge Medications: Continued mirtazapine 30 mg tablet 30 mg PO BEDTIME sertraline 25 mg tablet 1 tab PO DAILY multivitamin Tablet 1 tab PO DAILY atorvastatin 40 mg tablet 40 mg PO DAILY amitriptyline 10 mg tablet 10 mg PO BEDTIME melatonin 5 mg capsule 5 mg PO BEDTIME PRN (Reason: sleep) Qty: 30 0RF calcium carbonate-vitamin D3 [Oyster Shell Calcium-Vit D3] 500 mg-10 mcg (400 unit) tablet 1 tab PO BID Discontinued pantoprazole 40 mg tablet,delayed release (DR/EC) 1 tab PO BID@0630,1630 Qty: 180 0RF clopidogrel 75 mg tablet 75 mg PO DAILY No Action clopidogrel 75 mg tablet 75 mg PO DAILY acetaminophen 500 mg tablet 500 mg PO Q6H PRN (Reason: Pain) pantoprazole 40 mg tablet,delayed release (DR/EC) 40 mg PO BID@0630,1630 Discharge Orders: Discharge Order (Routine); Ordered 04/30/25 Ordered By: David Vaughn Diet: Advance to usual diet Activity on Discharge: As tolerated Stand Alone Forms: Patient Portal Discharge page Print Language: Unable To Collect Care Plan Goals: recovery from gastritis, gi bleeding anemia and dysphagia, Health Concerns: same as above Plan of Treatment: Take all medication as before Follow dysphagia diet with with Puree diet and thin liquid stop taking Plavix Follow up with your primary care provider and GI Doctor Mahesh Assessment: see above Discharge Date/Time: 04/30/25 16:09
--- NOTE | 2025-04-30 11:42 | MHC.CM.PN ---
PT CLEARED TO DC HOME TODAY WITH RESUMPTION OF CONTRACT CLERK SERVICES AND FAMILY SUPPORT HARSH SPOKE TO SUDHA [phone], PTS PRIMARY HCP SHE REPORTS HER UNCLE, WHO LIVES WITH THE PT, AND HER FATHER, DANIELLE, WILL BE PRESENT TO RECEIVE THE PT HARSH INFORMED HER BLS TRANSPORT WOULD LIKELY BE AROUND 1600 HOURS AND OFFERED TO CALL BACK TO CONFIRM, HOWEVER SUDHA INDICATED A RETURN CALL WOULD NOT BE NECESSARY THEY WILL ENSURE FAMILY IS PRESENT AND PREPARED FOR PTS RETURN BLS TRANSPORT BOOKED WITH [facility]EN FOR 1600 HOURS
[2025-04-30 15:20] VITALS: BP 127/56; PULSE 64; RESP 17; TEMP 37; O2SAT 99
== END 2025-04-30 16:09 | disposition home or self-care (01) | DRG 392 ==
LOC: HO.ED 11:11 → HO.EDOVER 11:18 → HO.S3 14:19
PROVIDERS: Internal Medicine Gastroenterology; Nurse Practitioner Family; Physician Assistant Medical; Admitting Provider Internal Medicine; Emergency Provider Emergency Medicine; PCP Internal Medicine Geriatric Medicine; Visit Provider Internal Medicine
PROC: 0DJ08ZZ Inspection of Upper Intestinal Tract, Via Natural or Artificial Opening Endoscopic (ICD-10-PCS; CPT 43235; principal; 2025-04-28 14:00)
DX: K20.90 Esophagitis, unspecified without bleeding (principal); D62 Acute posthemorrhagic anemia; I25.10 Atherosclerotic heart disease of native coronary artery without angina pectoris; K44.9 Diaphragmatic hernia without obstruction or gangrene; G30.9 Alzheimer's disease, unspecified; K22.89 Other specified disease of esophagus; F02.80 Dementia in other diseases classified elsewhere, unspecified severity, without behavioral disturbance, psychotic disturbance, mood disturbance, and anxiety; I10 Essential (primary) hypertension; E78.5 Hyperlipidemia, unspecified; Z87.891 Personal history of nicotine dependence; Z79.899 Other long term (current) drug therapy
CPT/HCPCS: 36415; 74177; 80053; 83735; 84484; 85025; 85027; 87102; 88305; 88312; 88313; 88342; 92610; 93005; 93308; 99285; J1644; J2003; J2405; J2470; J2704; J7120; Q9957; Q9967

== ENCOUNTER → 2025-04-27 08:10 | Outpatient (BNV) | payer OTHER, SELFPAY | PROVIDERS: PCP Internal Medicine Geriatric Medicine; Visit Provider Radiology Diagnostic Radiology | DX: K80.20 Calculus of gallbladder without cholecystitis without obstruction (principal); K56.41 Fecal impaction; K22.89 Other specified disease of esophagus | CPT/HCPCS: 74177 ==

== ENCOUNTER → 2025-04-27 08:10 | Outpatient (BNV) | payer OTHER, SELFPAY | PROVIDERS: PCP Internal Medicine Geriatric Medicine; Visit Provider Internal Medicine Cardiovascular Disease | DX: R10.13 Epigastric pain (principal) | CPT/HCPCS: 93010 ==

== ENCOUNTER 2025-04-27 11:01 | Outpatient (BNV) | payer OTHER, SELFPAY | END 2025-04-28 13:50 | PROVIDERS: Admitting Provider Internal Medicine; Emergency Provider Emergency Medicine; PCP Internal Medicine Geriatric Medicine; Visit Provider Internal Medicine Cardiovascular Disease | DX: I35.0 Nonrheumatic aortic (valve) stenosis (principal); Z01.818 Encounter for other preprocedural examination | CPT/HCPCS: 93308 ==

== ENCOUNTER → 2025-04-27 11:01 | Outpatient (BNV) | payer OTHER, SELFPAY | PROVIDERS: Admitting Provider Internal Medicine; Emergency Provider Emergency Medicine; PCP Internal Medicine Geriatric Medicine; Visit Provider Internal Medicine | DX: R11.2 Nausea with vomiting, unspecified (principal); K92.2 Gastrointestinal hemorrhage, unspecified | CPT/HCPCS: 99223; 99232 ==

== ENCOUNTER → 2025-04-27 11:01 | Outpatient (BNV) | payer OTHER, SELFPAY | PROVIDERS: Admitting Provider Internal Medicine; Emergency Provider Emergency Medicine; PCP Internal Medicine Geriatric Medicine; Visit Provider Internal Medicine Gastroenterology | DX: R11.2 Nausea with vomiting, unspecified (principal); R13.10 Dysphagia, unspecified; K20.90 Esophagitis, unspecified without bleeding; K44.9 Diaphragmatic hernia without obstruction or gangrene; K22.81 Esophageal polyp | CPT/HCPCS: 43239; 99222 ==

== ENCOUNTER 2025-05-08 15:36 | Emergency (ER) | payer OTHER, SELFPAY ==
--- NOTE | ~2025-05-08 | XR_ITS ---
CLINICAL HISTORY: AMS Chest Radiograph Comparison: CR/SR - XR CHEST 1 VIEW - 03/31/25 14:00 EDT CR - XR CHEST 1V - 02/01/25 22:46 EDT Findings: No cardiomegaly. Normal mediastinal contours. No pneumothorax. No opacity. No pleural effusion. Normal upper abdomen. No acute fracture. Impression: No acute findings. This document has been electronically signed by: Sharee Walden MD on 05/08/2025 18:06:39
[2025-05-08 15:50] VITALS: BP 102/52; BP 132/70; PULSE 71; PULSE 78; RESP 16; TEMP 36.5; O2SAT 100; O2SAT 98; BMI 23.9
[2025-05-08 16:03] VITALS: BP 132/70; PULSE 78; RESP 16; TEMP 36.5; O2SAT 100
--- OUTSIDE RECORDS SUMMARY | 2025-05-08 16:07 | XMS_ITS | Encounter Summary ---
Author Organization [employer] Address [address] [place] [address] Care Team Providers Care Automatic Corn Grinder Operator Name Role Phone Name, Stef ESTRADA Primary Care Provider [phone] Reason for Visit * Reason Onset Date Comments Hospital Follow-up 05/05/2025 Encounter Details Date Type Department Care Team ([facility] st Contact Info) Description 05/05/2025 Telephone [facility] MEDICINE [address] [employer], [place] [id number] Name, MD Stef [address] [place] [address] Hospital Follow-up Social History Tobacco Use Types Packs/Day Years Used Date Smoking Tobacco: Never Smokeless Tobacco: Current Chew Alcohol Use Standard Drinks/Week Comments Never 0 (1 standard drink = 0.6 oz pur e alcohol) Depression Answer Date Recorded Patient Health Questionnaire-9 Score 0 03/07/2025 Patient Health Questionnaire-9 Score 0 03/07/2025 Last PHQ-9: Questionnaire Data Not on file 0 03/07/2025 Housing Stability Answer Date Recorded What is your housing situation today? I have stu guaman 03/07/[address] you li ve. Do you have problems with any of the following? None of the above 03/07/2025 Food Insecurity Answer Date Recorded Within the past 12 months, y ou worried that your food would run out before you got money to buy more: Never True 03/07/2025 Within the past 12 months,th e food you bought just didn't last and you didn't have enough money to get more: Never True 12/2024 Transportation Answer Date Recorded In the past 12 months, has l ack of transportation kept you from medical appts, meetings, work or from getting things needed for daily living? No 03/07/2025 Utilities Answer Date Recorded In the past 12 months, has t he electric, gas, oil or water company threatened to shut off services in your home? No 03/07/2025 Depression Answer Date Recorded Patient Health Questionnaire-2 Score 0 03/07/2025 Comments Unknown Sex and Gender Information Value Date Recorded Sex Assigned at Female 08/04/2022 10:14 AM EDT Legal Sex Female 10:14 AM EDT Gender Identity Female 08/04/2022 10:14 AM EDT Sexual Orientation Straight 08/04/2022 10 :14 AM EDT documented as of this encounter Miscellaneous Notes * Telephone Encounter - Delia Aponte - 05/05/2025 1:07 PM EDT Tc from Nena Becerra from [facility] requesting a HDF appt. [place] [facility] [place] Date of admission: 04/27 Discharge date: 04/30 Diagnosed: Abdominal pain and upper GI bleed Contact Nena at [phone] documented in this encounter Plan of Treatment Not on file documented as of this encounter Visit Diagnoses Not on filedocumented in this encounter Additional Health Concerns Assessment Noted Time PHQ-9 Depression Total Score: 0 03/07/20 25 1:14 PM EDT documented as of this encounter Care Teams Automatic Corn Grinder Operator Relationship Specialty Start Date End Date Name, MD Stef [address] [place] [id number] PCP - General Family Medicine 01/28/16 Yuliya Amrit 07/27/24 documented as of this encounter
--- NOTE | 2025-05-08 16:08 | PC.NURSE ---
84 F presents from home with recent nausea, vomitting, and headache. Pt denies n/v at this times, sts headache 10/14 and no other complaints. A+OX1-2 to self and location, seems confused to situation and time. EMS sts patient was in vomit, stool, and urine upon arrival and WINDING INSPECTOR AND TESTER there was concern for the WINDING INSPECTOR AND TESTER not caring for her. RR even and unlabored, breath sounds clear bilat. Denies SOB or CP.
--- NOTE | 2025-05-08 16:12 | ECG_ITS ---
Test Reason : AMS Blood Pressure : */* mmHG Vent. Rate : 76 BPM Atrial Rate : 76 BPM P-R Int : 124 ms QRS Dur : 80 ms QT Int : 424 ms P-R-T Axes : 55 -10 47 degrees QTcB Int : 477 ms Normal sinus rhythm Normal ECG When compared with ECG of 27-Apr-2025 08:36, No significant change was found Referred By: Generic ED Physician Electronically Signed By: ABBY GRIMM
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
[2025-05-08 17:14] LABS: MANUAL DIFF FLAG NO
[2025-05-08 17:15] LABS: Hematocrit 33.0 % (37.0-47.0); Hemoglobin 11.0 g/dl (12.0-16.0); Imm Gran Abs Auto 0.04 X10*3/uL (0.00-0.03); Imm Gran Pct Auto 0.4 % (0.0-0.4); Lymphocytes Absolute Auto 2.8 X10*3/uL (1.2-4.9); Mean Corpuscular HGB Conc 33.3 g/dl (31.0-35.0); Mean Corpuscular Hemoglobin 30.4 pg (27.0-33.0); Mean Corpuscular Volume 91.2 fL (80.0-98.0); NRBC Abs Auto 0.000 X10*3/uL (0.0-0.012); NRBC Pct Auto 0.0 /100WBC (0.0-0.2); Platelet Count 469 X10*3/uL (160-400); Red Blood Count 3.62 X10*6/uL (4.20-5.50); White Blood Count 9.6 X10*3/uL (4.8-10.8)
[2025-05-08 17:29] LABS: Alanine Aminotransferase 7 U/L (0-31); Albumin Level 3.8 g/dL (3.5-5.0); Alkaline Phosphatase 64 U/L (39-117); Anion Gap 11 (12-20); Aspartate Amino Transferase 22 U/L (5-31); Blood Urea Nitrogen 16 mg/dL (9-16); Calcium 9.3 mg/dL (8.4-10.2); Carbon Dioxide 23 mmol/L (22-29); Chloride 106 mmol/L (96-108); Creatinine Clr Calc Pharmacy 61.3; Estimated Glomerular Filt Rate > 60; Magnesium 1.9 mg/dL (1.6-2.6); Potassium 3.9 mmol/L (3.3-5.1); Sodium 136 mmol/L (135-145); Total Protein 7.3 g/dL (6.5-8.0)
[2025-05-08 17:31] LABS: Resp Syncy Virus RNA Qual PCR NEGATIVE (Negative); SARS COV2 PCR INHOUSE NEGATIVE (Negative)
[2025-05-08 17:39] LABS: Troponin-I High Sensitivity < 2.7 ng/L (<3.5-17.0)
[2025-05-08 17:55] VITALS: BP 130/68; PULSE 75; RESP 12; O2SAT 100
[2025-05-08 19:46] VITALS: BP 136/69; PULSE 75; RESP 18; TEMP 36.8; O2SAT 100
--- NOTE | 2025-05-08 19:47 | PC.NURSE ---
patient incont of urine, cesia care provided bed linens changed and purewick pklaced
--- NOTE | 2025-05-08 21:22 | PC.NURSE ---
attempted to use external med rec to verify medications only able to see two recently filled meds. RN to RN report given to Sravanthi agosto OF
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
--- NOTE | 2025-05-08 21:51 | PC.NURSE ---
Assumed care of this patient upon their transfer to overflow unit. Patient transferred to hospital bed, purewick adjusted. Patient visibly cold, shaking in bed. Patient wrapped in warm blankets, bed alarm on. Patient only speaking small bits of cayman islander, unable to answer any questions appropriately. Med rec unable to be completed d/t patient's lack of knowledge & external med refills show most medications are out of date. Pureed Diet ordered.
[2025-05-08 22:00] VITALS: BP 123/69; PULSE 87; RESP 14; TEMP 37.1; O2SAT 100
--- NOTE | 2025-05-09 04:39 | PC.NURSE ---
bed alarm went off and pt was naked getting out of bed. pt requested for purewick to be removed pt repositioned back in bed warm blankets given. tv turned on and bed alarm back on.
[2025-05-09 06:00] VITALS: BP 137/60; PULSE 67; RESP 16; TEMP 36.5; O2SAT 100
--- NOTE | 2025-05-09 07:56 | PC.NURSE ---
Care of Pt assumed at change of shift. Pt rests quietly in bed with TV on. Pt provided with breakfast tray. senior health physics technician assists Pt with eating. Pt drinks approx. half of ensure and apple juice and eats container of apple sauce. Pt expresses displeasure when offered any solid foods. NAD noted at this time. Will continue to monitor.
[2025-05-09 10:39] LABS: Appearance Urine Clear; Glucose Urine UA Negative (Negative); PH 6.5 (5.0-9.0); Specific Gravity - Urine 1.020 (1.005-1.025); UMIC TRIGGER UACC YES
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
[2025-05-09 10:42] LABS: UACC Culture Trigger YES
--- NOTE | 2025-05-09 13:12 | PHA.MEDREC ---
Addendum entered by Madina Dejesus RPh 05/09/25 14:26: Reviewed by [facility] Original Note: Pharmacy Consult ? Medication Reconciliation Pharmacy has completed the medication reconciliation. Spoke with pt family at bedside and confirmed the pt has been a poor historian with taking her medications and hasnt taken any of them in the last couple days to last week.
[2025-05-09 14:00] VITALS: BP 114/56; PULSE 77; RESP 14; TEMP 36.8; O2SAT 98
[2025-05-09 20:00] VITALS: BP 109/57; PULSE 78; RESP 14; TEMP 36.9; O2SAT 93
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
[2025-05-10 05:19] VITALS: BP 118/60; PULSE 67; RESP 16; TEMP 36; O2SAT 97
--- NOTE | 2025-05-10 09:02 | PC.NURSE ---
oob ambulating to bathroom with assist. Declining po meds at this time
--- NOTE | 2025-05-10 10:10 | PC.NURSE ---
Multiple attempts to give patient mediations without success. Patient stating no she is not taking any medications
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
[2025-05-10 14:00] VITALS: BP 98/67; PULSE 80; RESP 20; TEMP 36.7; O2SAT 100
--- NOTE | 2025-05-10 14:45 | MHC.CM.PN ---
This data analyst report writer spoke with Inspector Joel Freitas re: patient situation. He was able to speak w/ the Retail Helper @ [facility]- they plan to have a discussion w/ family to encourage STR placement.And will follow-up w/ [facility] tomorrow (05/11/2025). At this time family is to NOT take patient AMA until final recommendation from [facility].
--- NOTE | 2025-05-10 17:37 | PC.NURSE ---
Assume care approx 1600.? Pt confused, attempting to get out of bed with out assistance, requiring frequent redirection, bed alarm and AVAsys camera in place. ambulated to the bathroom, back to bed, refused dinner,?except for ensure supplement.??
[2025-05-10 19:46] VITALS: BP 106/63; PULSE 88; RESP 20; TEMP 36.8; O2SAT 99
[2025-05-10] MEDS: Calcium + Vitamin D 250 MG TABLET PO (20:37)
[2025-05-11 00:40] VITALS: PULSE 87
[2025-05-11 05:52] VITALS: BP 104/52; PULSE 71; RESP 16; O2SAT 99
[2025-05-11] MEDS: Calcium + Vitamin D 250 MG TABLET PO (09:13)
--- NOTE | 2025-05-11 09:26 | PC.NURSE ---
Pt confused, paranoid, getting OOB and demanding to go home, uncooperative with care; pt moved to a more visible room and sitter in place for safety; pt able to be redirected; vss; family visiting at bedside
--- NOTE | 2025-05-11 11:59 | PC.NURSE ---
Addendum entered by Karis Yi RN 05/11/25 12:00: Patient is a 84 year old with PMH of Alzheimer dementia, esophagitis (erosive) stroke, HTN, HLD, CAD, history of CVA, history of NSTEMI, history of upper GI bleeding. Recently admitted with vomiting and abdominal pain. In the ED CT revealed marked wall thickening of the distal esophagus, cholelithiasis without evidence of biliary ductal dilatation and a large amount of stool through the colon. Patient returns covered with vomit, stool and urine per a family member. Patient alert and confused, requiring a 1:1 for safety. Respirations even and non-labored. Abdomen flat, soft, non-tender with positive bowel sounds. Positive pedal pulses with no edema. Original Note: Medical History Systolic murmur Emphysematous cystitis Anemia Cholecystitis Esophagitis Weight loss Candidiasis, esophageal Nausea & vomiting Gallstones Abnormal nuclear stress test HLD (hyperlipidemia) HTN (hypertension) CVA, old, disturbances of vision (~09/2019) NSTEMI (non-ST elevated myocardial infarction) Dementia Coronary artery disease
[2025-05-11 14:35] VITALS: BP 149/75; PULSE 69; RESP 14; TEMP 37.1; O2SAT 97
--- NOTE | 2025-05-11 16:01 | PC.NURSE ---
Incontinence care provided
--- NOTE | 2025-05-11 16:19 | MHC.CM.PN ---
This CM received phone call from Giuseppe Jenkins from [facility], he advised that the pt not return to the home. This CM received a phone call from Deb from [facility], she was looking for an update on their patient. CM director updated. Discharge disposition unclear, awaiting guidance from ion exchange operator.
[2025-05-11 22:00] VITALS: BP 117/67; PULSE 90; RESP 16; TEMP 37.3; O2SAT 98
--- NOTE | 2025-05-12 01:05 | PC.NURSE ---
Assumed care of pt at 2310, pt in bed, alert speaking in Greek to 1:1 sitter. Denies any pain. Resting 0030 Incontinence care provided by sitter and TEST ENGINE MECHANIC, pt resting on left side, warm blanket provided. RR even and unlabored pt appears to be in no distress. 1:1 remains at bedside for safety. Resuming rest. Plan of care on going.
--- NOTE | 2025-05-12 05:34 | PC.NURSE ---
PT SLEEPING, SITTER AT BEDSIDE.
[2025-05-12 06:00] VITALS: BP 104/60; PULSE 75; RESP 14; TEMP 36.7; O2SAT 98
[2025-05-12 07:37] VITALS: BP 95/58; PULSE 69; RESP 16; TEMP 36.3; O2SAT 97
[2025-05-12] MEDS: Calcium + Vitamin D 250 MG TABLET PO (07:47)
--- NOTE | 2025-05-12 10:29 | PC.NURSE ---
assumed care of patient at 0700, patient is awake and alert laying in hospital bed, has sitter 1:1 at bedside. patient is primarily maltese speaking only but makes needs known with interpretation. patient sat up and ate breakfast, medicated per DEC, meds needed to be crushed and put into pudding. patient son currently at bedside. patient given babydoll for comfort, patient smiling and playing with doll at this time. patient appears relaxed/comfortable. no signs of acute distress at this time, VSS
[2025-05-12 14:00] VITALS: BP 100/60; PULSE 66; RESP 15; TEMP 37.1; O2SAT 99
[2025-05-12 20:00] VITALS: BP 98/60; PULSE 62; RESP 12; TEMP 36.4; O2SAT 99
[2025-05-12 22:00] VITALS: BP 102/60; PULSE 60; RESP 12; TEMP 36.8; O2SAT 98
--- NOTE | 2025-05-12 22:01 | PC.NURSE ---
Upon attempting to administer medication, pt spit them out. Refusing any food/drink/medication at this time. Pt slightly agitated, ambulated x2 assist around unit then assisted back to bed. Now resting comfortably in bed, 1:1 @ bedside, care ongoing.
[2025-05-13 05:43] VITALS: BP 99/52; PULSE 105; RESP 20; TEMP 36.6
[2025-05-13] MEDS: Calcium + Vitamin D 250 MG TABLET PO (09:40)
--- NOTE | 2025-05-13 09:43 | PC.NURSE ---
patient alert to self, 1:1 sitter at bedside, rr equal/non labored- lungs diminished, pt took meds 1 at a time with water. pure wick intact. family was at bedside asking to speak with provider about taking pt home- provider came to speak with the family stating that the patient needed to remain here for the time being- family has since left. call diggs within reach, plan of care ongoing
[2025-05-13 10:16] VITALS: BP 126/65; PULSE 70; TEMP 36.9; O2SAT 98
[2025-05-13 14:51] VITALS: BP 101/66; PULSE 69; RESP 12; TEMP 36.5; O2SAT 97
--- NOTE | 2025-05-13 17:23 | PC.NURSE ---
Son: The son has been here multiple times today asking about taking his mother home. Additionally, he requested to sleep here through thursday. This nurse spoke with the nursing supervisor [employer] fabrication who has declined to allow this to occur. This nurse obtained a surveillance officer to speak to the patient about his inquiry. The blasting miner said the son understood he could not sleep here but is allowed to visit during visiting hours. He kept repeating that he would come back thursday at 10am to speak with the doctor and take his mother home. This nurse attempted to explain that no decisions have been made about the discharge of his mother. He repeated the same sentence multiple times and the blasting miner repeated my same response multiple times to the patient. It seems he isnt understanding.
--- NOTE | 2025-05-13 17:55 | PC.NURSE ---
pt refused medication
[2025-05-13 20:21] VITALS: BP 108/56; PULSE 72; RESP 18; TEMP 37.1; O2SAT 96
[2025-05-14 06:00] VITALS: BP 117/64; PULSE 80; RESP 16; TEMP 36.4; O2SAT 97
[2025-05-14 08:11] VITALS: BP 100/52; PULSE 90; RESP 14; TEMP 36.9; O2SAT 98
[2025-05-14] MEDS: Calcium + Vitamin D 250 MG TABLET PO ×2 (09:20→21:28)
--- NOTE | 2025-05-14 09:35 | MHC.CM.ED ---
Pt continues to hold in the ED pending investigation outcomes by [facility] and input by [facility] securities attorney. ED CM aware of pt's son's excessive visiting/requesting meals, etc. Regional Hr Manager also aware. Of note, pt is affiliated w/[facility] and has cognitive impairment. He and other family members including HCP Sebastian and Robby are not permitted to take pt home at this time. ED CM to follow.
--- NOTE | 2025-05-14 10:03 | PC.NURSE ---
Pt son in to visits and making inquires on plan for pt to be d/c. Explained to pt with technical training manager that pt will remain in hospital and as of right now there are no plans for discharge. Pt son states he understands and will come back tomorrow to establish plan for d/c.
[2025-05-14 13:54] VITALS: BP 91/70; PULSE 80; RESP 18; TEMP 36.5; O2SAT 98
[2025-05-14 22:00] VITALS: BP 102/64; PULSE 85; RESP 16; TEMP 36.7; O2SAT 97
[2025-05-15 06:00] VITALS: BP 119/67; PULSE 78; RESP 14; TEMP 36.7; O2SAT 97
--- NOTE | 2025-05-15 06:07 | PC.NURSE ---
Remains in ED overflow awaiting safe disposition plan. Pt A/O to self only. 1:1 sitter at bedside for safety. Denies pain. Fall and safety precautions in place. Call diggs and belongings placed within reach. Uneventful night.
--- NOTE | 2025-05-15 09:02 | MHC.CM.PN ---
Addendum entered by Sindy Francisco 05/15/25 11:14: CM MET WITH PTS CP AGENTS AT BEDSIDE THEY ARE EXCITED THAT PT WILL BE ABLE TO DC HOME TODAY AND ARE AGREEABLE TO [facility] HAS ACCEPTED REFERRAL FOR SENIOR CARE PT IS NOT APPROPRIATE FOR PT OR OT DUE TO ADVANCED DEMENTIA PTS SON WILL PROVIDE TRANSPORT Original Note: CM SPOKE TO [facility] WORKER, SAUL LAM ALONG WITH HIS SHUTTLE FITTING SUPERVISOR. THEY INDICATED INITIALLY THAT THE INVESTIGATION MAY TAKE UP TO 30 DAYS. CM INFORMED THEM A REQUEST WAS ALREADY MADE THAT THIS BE EXPEDITED THE HOSPITAL IS UNABLE TO HOUSE INDIVIDUALS PER DISCUSSION, THEY ARE REQUESTING PTS HCP BE INVOKED SO THEY CAN WORK WITH THE AGENTS TO ENSURE ONGOING SAFETY THEY ARE ALSO REQUESTING VNA SREVICES, REFERRAL MADE FOR PT, OT AND SN TO [facility] OF NOTE, [facility] ALSO HAD THE WRONG HCP AGENT IT WAS AN OUTDATED DOCUMENT, CORRECT AGENT INFORMATION PROVIDED ONCE VNA IS SECURED AND HCP INVOKED, CM WILL EMAIL DC INFO TO SAUL AT [email or web address]
[2025-05-15] MEDS: Calcium + Vitamin D 250 MG TABLET PO (09:34)
--- NOTE | 2025-05-15 11:51 | PC.NURSE ---
This RN assumed care of patient @ 0700. Patient filipino speaking only, sitter able to help translate. Administered medications per MAR. Patient able to ambulate 1 assist to the bathroom. Family at bedside. CM saw patient and patient will be up for discharge. Provider aware
[2025-05-15 12:20] VITALS: BP 104/57; PULSE 86; RESP 14; TEMP 36.9; O2SAT 98
== END 2025-05-15 12:28 | disposition home or self-care (01) ==
PROVIDERS: Emergency Provider Emergency Medicine
DX: N39.0 Urinary tract infection, site not specified (principal); R62.7 Adult failure to thrive; F03.90 Unspecified dementia, unspecified severity, without behavioral disturbance, psychotic disturbance, mood disturbance, and anxiety; R11.2 Nausea with vomiting, unspecified; I10 Essential (primary) hypertension; Z03.818 Encounter for observation for suspected exposure to other biological agents ruled out; Z79.899 Other long term (current) drug therapy; Z87.891 Personal history of nicotine dependence; Z86.73 Personal history of transient ischemic attack (TIA), and cerebral infarction without residual deficits
CPT/HCPCS: 36415; 71045; 80053; 81001; 82550; 83735; 84484; 85025; 87086; 87637; 93005; 96360; 96361; 99285

== ENCOUNTER → 2025-05-08 16:12 | Outpatient (BNV) | payer OTHER, SELFPAY | PROVIDERS: Emergency Provider Emergency Medicine; Visit Provider Internal Medicine | DX: R41.82 Altered mental status, unspecified (principal) | CPT/HCPCS: 93010 ==

== ENCOUNTER → 2025-05-08 17:38 | Outpatient (BNV) | payer OTHER, SELFPAY | PROVIDERS: Emergency Provider Emergency Medicine; Visit Provider Radiology Diagnostic Radiology | DX: R41.82 Altered mental status, unspecified (principal) | CPT/HCPCS: 71045 ==

== ENCOUNTER 2025-06-01 10:34 | Outpatient (AMB) | payer OTHER, SELFPAY ==
--- NOTE | 2025-06-01 10:47 | MHC.OFFVIS ---
Vital Signs 06/01/25 10:51 Height 4 ft 10 in Weight 87 lb BMI 18.2 BP 106/74 Blood Pressure Location Lt brachial Position Sitting Pulse 86 Intake Visit Reasons: bx results/abdominal pain Intake Note: Patient follow up for EGD results. Patient cc: abdominal disconfort, black hard stool, denies any other GI issues. Cemetery Laborer Required: Yes Cemetery Laborer Name: [facility] Interpeter Accompanied by: Family/Other Allergies No Known Allergies (NO KNOWN ALLERGIES) Allergy (Unknown, Verified 06/01/25 10:47) UNKNOWN Medication List - Last Reconciled 06/01/25 by Shannon Aragon MD acetaminophen 500 mg PO Q6H PRN amitriptyline 10 mg PO BEDTIME atorvastatin 40 mg PO DAILY calcium carbonate-vitamin D3 500 mg-10 mcg (400 unit) (Oyster Shell Calcium-Vitamin D3) 1 tab PO BID clopidogrel 75 mg PO DAILY food supplemt, lactose-reduced (Boost) ea PO melatonin 5 mg PO BEDTIME PRN mirtazapine 30 mg PO BEDTIME multivitamin 1 tab PO DAILY pantoprazole 40 mg PO BID@0630,1630 sertraline 1 tab PO DAILY HPI HPI bx results/abdominal pain: Details: GI clinic visit for this 84 year old Haitian-speaking female for follow-up after recent hospitalization for dysphagia and odynophagia TODAY'S VISIT: [facility] hourly sign language interpreter, Margy Pt is accompanied by her son and GD. Patient cc: Patient cc: abdominal discomfort, black hard stool, Hx obtained from pt's son Pt has been taking jello, milk and several cups of rice pudding and a protein shake daily Her wt is stable Pt has chronic constipation - has a BM every 2-3 days with passage of hard stools with black balls PAST VISIT: Pt is not eating well - states her esophagus hurts when she eats Eating like a toddler. Eats more liquids (Ensure) rather than solids Wt loss from 106 to 87 lbs over the past 8 months Weighs 98 lbs Low energy, does'nt want to eat Family giving her soups, ensure and electrolytes Eating less than 1/2 of her food like a baby Pt has been declining and dementia is getting worse Pt complains of nausea and denies vomiting. Wt loss from 120 to 98 lbs over the past 5 to 6 months Pt wears diapers and has a normal BM daily. Denies recent diarrhea, black stools or rectal bleeding. Patient denies major cardiac or pulmonary problems, loud snoring or sleep apnea Denies problems with anesthesia in the past. Denies being on chronic anticoagulation. Patient denies known family history of colon polyps, colon cancer or other GI malignancies. Pt has arthritis with pain in the shoulders [facility] IMAGING STUDIES: 08/04/[address] SCAN SHOWED: Acute to subacute superior endplate compression deformity L2 vertebra with] millimeter of retropulsion upon central canal. Cholelithiasis. Nonobstructing nephrolithiasis, left kidney. Fat-containing umbilical hernia. Hiatal hernia. Calcified mitral valve ENDOSCOPIC STUDIES: 08/05/24 EGD SHOWED: ESOPHAGUS: Small hiatal hernia with severe erosive esophagitis with possible aaron esophagitis - status post biopsies and brushings STOMACH: Three 3-5 mm non-bleeding ulcers in the gastric antrum - biopsies were obtained Plan: 1. IV PPI twice daily and switch to PO Omeprazole twice a day once pt is tolerating a PO diet. 2. [place] of clear liquid diet tonight and advance diet as tolerated. BIOPSIES SHOWED: A. Stomach, antrum, biopsy: Antral-type mucosa with mild chronic inactive inflammation; no Helicobacter organisms seen. B. Stomach, ulcer, biopsy: Antral-type mucosa with chronic active erosive inflammation and regenerative changes; no Helicobacter organisms seen. C. Esophagus, biopsy: Fragments of inflamed smooth muscle and ulcer/necroinflammatory material; no atypia or fungi identified Fungal cultures showed Aaron glabrata PAST GI HISTORY BY REVIEW OF MEDICAL RECORDS: 08/05/24 patient was seen in consultation during hospitalization: Elisa Weaver is 83 years old with past medical history significant hyperlipidemia, hypertension, CVA, CAD, dementia and cholelithiasis who was brought to the emergency department due to sudden onset of severe epigastric pain associated with nausea and vomiting. Patient stated that the pain radiate to the chest. She denied any shortness on breath, cough, fever, chills, dizziness or palpitations. She did not report any acute urinary symptoms. Per chart review: Patient had multiple visits to the emergency department with similar symptoms. She has been evaluated in the past with surgery service for gallstone [facility] Medical History Systolic murmur Emphysematous cystitis Anemia Cholecystitis Esophagitis Weight loss Candidiasis, esophageal Nausea & vomiting Gallstones Abnormal nuclear stress test HLD (hyperlipidemia) HTN (hypertension) CVA, old, disturbances of vision (~09/2019) NSTEMI (non-ST elevated myocardial infarction) Dementia Coronary artery disease Surgical History Previous section H/O eye surgery History of esophagogastroduodenoscopy (EGD) Family History Father No problems noted. Mother No problems noted. Social History Household Members: Children Housing: Apartment Are you a primary health care facility administrator to a significant other at home: No Do you presently have visiting nurse or other home services: No Unable to assess alcohol history related to: Unable to respond and Unknown Alcohol intake: never Comment: 1:1 sitter Patient Tobacco Use Status: Former Tobacco user Tobacco use type: Smokeless Tobacco Years Smoked: Chews tobacco e-Cigarette/Vaping Use: Never Used Second Hand Smoke Exposure: No Advance Directives Date on File: 09/02/22 service: No Current occupational status: retired and disabled 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 Review of Systems Const All systems reviewed & are unremarkable except as noted in HPI and below Physical Exam Vital Signs: Last Vital Signs Pulse 86 06/01/25 10:51 BP 106/74 06/01/25 10:51 BMI result Body Mass Index 18.2 Const General: no acute distress and tired appearing Nutritional Appearance: underweight Orientation/consciousness: patient oriented x3 Limitations: language barrier, wheelchair and other limitations (dementia) HEENT Head: Yes normal to inspection Ears: hearing grossly normal bilaterally Eyes Sclerae: sclerae normal Pupils: Equal, round and reactive pupils present Neck Neck: Yes normal visual inspection Chest Chest palpation & inspection: normal inspection of the chest Resp Effort & Inspection: normal respiratory effort Auscultation: clear to auscultation bilaterally Cardio Palpation: normal PMI Rate: regular rate Rhythm: regular rhythm Heart sounds: S1 normal heart sound present, S2 normal heart sound present and no murmurs GI Palpation (GI): Soft to palpation, nontender, No hepatosplenomegaly present and Other GI palpation findings present (palpable stool in LLQ) Auscultation: normal bowel sounds Rectal Exam - Female: deferred Skin General skin exam: no rashes or lesions noted Neuro General: patient oriented x3, gait normal and moves all extremities Cranial nerves: Yes Equal, round and reactive pupils present Psych Appearance: grossly normal Mental Status: mental status grossly normal Assessment & Plan Assessment & Plan (1) Gallstones: Code(s): K80.20 - Calculus of gallbladder without cholecystitis without obstruction Category: Medical (2) Nausea & vomiting: Code(s): R11.2 - Nausea with vomiting, unspecified Category: Medical (3) Gastric ulcer: Code(s): K25.9 - Gastric ulcer, unspecified as acute or chronic, without hemorrhage or perforation Category: Medical (4) Erosive esophagitis: Code(s): K22.10 - Ulcer of esophagus without bleeding Category: Medical (5) Chronic constipation: Code(s): K59.09 - Other constipation Category: Medical Plan 84 year old Haitian-speaking female with HLD, HTN, CVA, CAD on Plavix and statin, and dementia seen for FU of dysphagia and odynophagia 08/05/24 patient was seen in consultation during hospitalization: Elisa Weaver is 83 years old with past medical history significant hyperlipidemia, hypertension, CVA, CAD, dementia and cholelithiasis who was brought to the emergency department due to sudden onset of severe epigastric pain associated with nausea and vomiting. Patient stated that the pain radiate to the chest. She denied any shortness on breath, cough, fever, chills, dizziness or palpitations. She did not report any acute urinary symptoms. 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 She has resumed eating and has no further weight loss per family so the symptoms may have been due to dementia Family desires no treatment unless failure to thrive reappears and worsens and then would try IV and then po Voriconazole 200 mg bid for two weeks but interacts with clopidogrel so coagulation would have to be addressed. 11/25/24 Family reported pt states her esophagus hurts when she eats and is not eating well and has lost wt loss from 106 to 87 lbs over the past 8 months Pt's family requested PEG tube placement for nutritional support. Due to concern for persistent infection with Aaron glabrata (which can be resistant to Fluconazole) Pt was discussed with Dr Vogel (ID) and hospitalized and treated for Aaron Glabrata with IV Caspofungin. 04/2025 EGD SHOWED; ESOPHAGUS: Hiatal hernia, benign appearing nodule on gastric side of GE junction. Severe esophagitis from 20 to 30 cms with thick white exudate - biopsies and brushings were obtained. Exudate appeared to be blocking the distal esophagus - suctioned. STOMACH: Diffuse gastritis Plan: [place] of clear liquid diet and if tolerated advance to pureed diet. Continue Pantoprazole 40 mg twice daily. BIOPSIES SHOWED: A. Esophagus, nodule, biopsy: - Cardiac-type mucosa with mild chronic inactive inflammation; no intestinal metaplasia seen. - Negative for H. pylori. - Active esophagitis (neutrophils); no fungi identified. B. Esophagus, distal, biopsy: Fragments of ulcer bed only; no viable epithelium identified; no fungi identified. No growth on fungal cultures 06/01/25 Pt's son and GD advised to: 1. Give a fleet enema today 2. Senna + colace 2 tab at bedtime daily 3. Miralax 17 grams daily FU in 4 weeks Medications: New sennosides-docusate sodium 8.6-50 mg (Laxative Stool Softener With Senna) 2 tab-caps (2 x 8.6-50 mg) PO BEDTIME 60 tabs 3RF 30 days K59.09 - Other constipation bisacodyl (Fleet Bisacodyl) 10 mg (30 mL) [place] DAILY PRN 37 mL 3RF constipation 2 days K59.09 - Other constipation polyethylene glycol 3350 (Miralax) 17 grams PO BID 1,020 grams 3RF 30 days K59.09 - Other constipation Coding Level of Care Code Est Pt Level 4 (05337) Diagnoses Gallstones K80.20 Nausea & vomiting R11.2 Gastric ulcer K25.9 Erosive esophagitis K22.10 Chronic constipation K59.09 Time Spent (min) 21
[2025-06-01 10:51] VITALS: BP 106/74; PULSE 86; BMI 18.2
--- OUTSIDE RECORDS SUMMARY | 2025-06-01 11:56 | XMS_ITS | Encounter Summary ---
Author Organization [employer] Address [address] [facility] [facility] [address] [place] [address] Care Team Providers Care Cutter Out Name Role Phone Name, Stef ESTRADA Primary Care Provider [phone] Encounter Details Date Type Department Care Team ([facility] st Contact Info) Description 05/31/2025 Refill [facility] MEDICINE [address] [place] [address] Jenna Mixon, VikasD [address] [place] [address] Social History Tobacco Use Types Packs/Day Years [...] Telephone Encounter - Jenna Mixon PharmD - 05/31/2025 3:02 PM EDT Plan at discharge to change from pantoprazole to omeprazole. Omeprazole suspension sent to [facility] however they are unable to get suspension. Please consider sending a prescription for capsules in order to update medboxes. Thank you documented in this encounter Plan of Treatment Upcoming Encounters Date Type Department Care Team (Late st Contact Info) Description 06/01/2025 2:30 PM EDT Office Visit [facility] MEDICINE [address] [place] [phone] Laurita Samaniego FNP [address] [place] [phone] 06/07/2025 4:00 PM EDT Office Visit [facility] MEDICINE [address] [place] [phone] Stef Greer MD [address] [place] [phone] documented as of this encounter Visit Diagnoses Not on filedocumented in this encounter Additional Health Concerns Assessment Noted Time PHQ-9 Depression Total Score: 0 03/07/20 25 1:14 PM EDT documented as of this encounter Care Teams Cutter Out Relationship Specialty Start Date End Date Stef Greer MD [address] [place] [id number] PCP - General Family Medicine 01/28/16 [facility] 05/16/25 documented as of this encounter
--- OUTSIDE RECORDS SUMMARY | 2025-06-01 11:56 | XMS_ITS | Encounter Summary ---
Author Organization [employer] Address [address] [facility] [address] [place] [address] Care Team Providers Care General Education Instructor Name Role Phone Name, Stef ESTRADA Primary Care Provider [phone] Reason for Visit * Reason Onset Date Comments Hospital Follow-up 05/18/2025 Encounter Details Date Type Department Care Team ([facility] st Contact Info) Description 05/18/2025 Telephone [facility] MEDICINE [address] [place], [place] [phone] Name, MD Stef [address] [place] [address] Hospital Follow-up Social History Tobacco Use Types [...] encounter Miscellaneous Notes * Telephone Encounter - Brittany Adames - 05/18/2025 1:19 PM EDT Tc from pt requesting a HDF appt. Hospital: [facility] Date of admission: 05/12 Discharge date: 05/15 Diagnosed: acute upper GI bleed *Send message to [place] Clinical Care Coordinators Contact Deb mckeon at [facility] at [phone] with apt documented in this encounter Plan of Treatment Upcoming Encounters Date Type Department Care Team (Late st Contact Info) Description 06/01/2025 2:30 PM EDT Office Visit [facility] MEDICINE [address] [place] [phone] Laurita Samaniego FNP [address] [place] [address] 06/07/2025 4:00 PM EDT Office Visit [facility] MEDICINE [address] [place] [address] [phone] Name, MD Stef [address] [place] [address] documented as of this encounter Visit Diagnoses Not on filedocumented in this encounter Additional Health Concerns Assessment Noted Time PHQ-9 Depression Total Score: 0 03/07/20 25 1:14 PM EDT documented as of this encounter Care Teams General Education Instructor Relationship Specialty Start Date End Date Name, MD Stef [address] [place] [address] PCP - General Family Medicine 01/28/16 Yuliya Amrit 07/27/24 05/21/25 [facility] 05/16/25 documented as of this encounter
--- OUTSIDE RECORDS SUMMARY | 2025-06-01 11:56 | XMS_ITS | Encounter Summary ---
Author Organization [employer] Address [address] [facility] [address] [place] [address] Care Team Providers Care Oral Communication Instructor Name Role Phone Name, Stef ESTRADA Primary Care Provider [phone] Reason for Visit * Reason Onset Date Comments Paperwork/Forms 04/18/2024 Encounter Details Date Type Department Care Team ([facility] Contact Info) Description 04/18/2024 Telephone [facility] MEDICINE [address] [place], [place] [phone] Name, MD Stef [address] [place] [address] Paperwork/Forms Social History Tobacco Use Types Packs/Day [...] PM EDT Tc from Emily, nurse at [facility] requesting paperwork to be sign as soon as possible in order to them be able to admit pt into services. Please contact Emily at [phone] if any question. documented in this encounter Plan of Treatment Upcoming Encounters Date Type Department Care Team (Late st Contact Info) Description 06/01/2025 2:30 PM EDT Office Visit [facility] MEDICINE [address] [place] [phone] Laurita Samaniego FNP [address] [place] [phone] 06/07/2025 4:00 PM EDT Office Visit [facility] MEDICINE [address] [place] [phone] NameStef MD [address] [place] [phone] documented as of this encounter Visit Diagnoses Not on filedocumented in this encounter Additional Health Concerns Assessment Noted Time PHQ-9 Depression Total Score: 0 01/28/20 24 10:49 AM EDT documented as of this encounter Care Teams Oral Communication Instructor Relationship Specialty Start Date End Date Stef Greer MD [address] [place] [address] PCP - General Family Medicine 01/28/16 Yuliya ALFRED 07/27/24 05/21/25 [facility] 05/16/25 documented as of this encounter
--- OUTSIDE RECORDS SUMMARY | 2025-06-01 11:56 | XMS_ITS | Clinical Summary ---
Author Organization 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 06/18/20 21 Active docusate sodium (Colace) 100 MG capsule Take by mouth every 12 (twelve) hours. 07/30/20 21 Active ondansetron (Zofran) 4 MG tablet Take 1 tablet by mouth in the morning and 1 tablet in the evening. 10/17/19 22 Active SUMAtriptan (Imitrex) 50 MG tablet Take 1 tablet by mouth. 06/25/20 21 Active polyethylene glycol, PEG, 3350 (Glycolax) 17 GM/SCOOP powder TAKE 17 GM MIXED IN 8 OUNCES OF WATER, COFFEE OR TEA ONCE DAILY 510 g 1 06/07/20 24 Active metoprolol succinate XL (Toprol-XL) 25 MG 24 hr tablet Take 0.5 tablets (12.5 mg) by mouth Once per day. Do not crush or chew. 15 tablet 2 10/26/19 25 Active amitriptyline (Elavil) 10 MG tablet TAKE 1 TABLET BY MOUTH AT BEDTIME 90 tablet 1 11/22/19 25 Active Multiple Vitamin (Multivitamin) tablet Take 1 tablet by mouth in the morning. 12/06/19 25 Active Calcium Carb-Cholecalcife rol (Oyster Shell Calcium + D3) 500-10 MG-MCG tabletIndications :Osteoporosis, unspecified osteoporosis type, unspecified pathological fracture presence Take 1 tablet by mouth 2 times daily. TAKE 1 TABLET BY MOUTH TWICE DAILY IN THE MORNING AND IN THE EVENING 60 tablet 11 01/14/20 25 Active acetaminophen (Tylenol) 500 MG tabletIndications :Primary osteoarthritis involving multiple joints take 1 tablet (500MG) by oral route every 6 hours as needed 90 tablet 11 03/07/20 25 Active atorvastatin (Lipitor) 40 MG tablet TAKE 1 TABLET BY MOUTH EVERY MORNING 90 tablet 1 03/21/20 25 Active mirtazapine (Remeron) 30 MG tabletIndications :Moderate dementia without behavioral disturbance, psychotic disturbance, mood disturbance, or anxiety, unspecified dementia type (CMS/HCC) tt BY MOUTH AT BEDTIME 90 tablet 03/28/20 25 Active sertraline (Zoloft) 25 MG tabletIndications :Moderate dementia without behavioral disturbance, psychotic disturbance, mood disturbance, or anxiety, unspecified dementia type (CMS/HCC) TAKE 1 TABLET BY MOUTH EVERY MORNING 30 tablet 2 04/20/20 25 Active melatonin 5 MG tablet Take 1 tablet by mouth at bedtime. 05/04/20 25 Active sucralfate (Carafate) 1 GM/10ML suspension Take 1 g by mouth before breakfast, before lunch, before evening meal, and at bedtime. 01/26/20 25 Active omeprazole (PriLOSEC) [address] capsule Take 1 capsule (40 mg) by mouth before breakfast. Do not crush or chew. 90 capsule 05/31/20 25 Active pantoprazole (ProtoNix) 40 MG EC tabletIndications :Gastroesophageal reflux disease without esophagitis TAKE 1 TABLET BY MOUTH TWICE DAILY IN THE MORNING AND IN THE EVENING 180 tablet 1 08/03/20 24 025 Discontinued(Me d list cleanup (will not trigger notification to Pharmacy)) clopidogrel (Plavix) 75 MG tablet TAKE 1 TABLET BY MOUTH EVERY MORNING 90 tablet 1 03/21/20 25 025 Discontinued(Me d list cleanup (will not trigger notification to Pharmacy)) omeprazole (PriLOSEC) [address] capsule Take 1 capsule by mouth before breakfast. Do not crush or chew. 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 Epigastric pain 04/06/2025 Fall 04/06/2025 Fracture of wrist 04/06/2025 Gastric ulcer 04/06/2025 Candidiasis, esophageal 04/06/2025 Esophagitis 04/06/2025 Gastritis 04/06/2025 Hyperglycemia 04/06/2025 Lactic acidosis 04/06/2025 Weight loss 04/06/2025 Weakness 04/06/2025 Systolic murmur 04/06/2025 Diastolic murmur 04/06/2025 Sepsis due to urinary tract infection 04/06/2025 Rotator cuff arthropathy of right shoulder 04/06 Vomiting 04/06/2025 Nausea 04/06/2025 Nausea & vomiting 04/06/2025 GIB (gastrointestinal bleeding) 04/06/2025 Metabolic acidosis 04/06/2025 Right distal ulnar fracture 04/06/2025 Abdominal pain 04/06/2025 Acute hip pain 04/06/2025 Acute UTI 04/06/2025 Urinary tract infection 04/06/2025 Mixed incontinence 01/13/2025 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 Ankle sprain [...] Encounters Date Type Department Care Team Description 05/31/2025 Refill [facility] [address] [place] [address] Jenna Mixon, PharmD 05/22/2025 Patient Outreach [facility] [address] [place] [address] Name, MD Stef Transition Of Care (Tcm) (HDF scheduled.) 05/18/2025 Patient Outreach [address] [address] Stef Greer MD Transition Of Care (Tcm) (HDF- Unscheduled - unable to communicate with Deb at S.) 05/18/[address] [address] Stef Greer MD Hospital Follow-up 05/11/[address] [address] Flakita Aguilera [place] july recalls 05/09/2025 Patient Outreach [address] [address] Stef Greer MD Transition Of Care (Tcm) (HDF- Unscheduled SECOND CALL - MAILBOX FULL) 05/05/2025 Patient Outreach [address] [address] Stef Greer MD Transition Of Care (Tcm) (HDF- Unscheduled -unable to LVM, Mailbox is full) 05/05/[address] [address] Stef Greer MD Hospital Follow-up 04/27/2025 Orders Only GENERIC EXTERNAL DATA DEPARTMENT Provider, Generic External Data 04/20/[address] [address] Stef Greer MD Moderate dementia without behavioral disturbance, psychotic disturbance, mood disturbance, or anxiety, unspecified dementia type (CMS/HCC) 04/06/[address] [address] Demetrice Nelson MA Chart Prep 03/31/2025 Orders Only [facility] External Provider, [facility] 03/28/2025 Refill [facility] MEDICINE [address] [place] [phone] Yani Villeda MD Moderate dementia without behavioral disturbance, psychotic disturbance, mood disturbance, or anxiety, unspecified dementia type (CMS/HCC) 03/20/2025 Refill [facility] [address] [place] [phone] Stef Greer MD 03/07/2025 1:00 PM EDT Office Visit [facility] [address] [place] [address] Name, MD Stef Severe dementia without behavioral disturbance, psychotic disturbance, mood disturbance, or anxiety, unspecified dementia type (CMS/HCC) (Primary Dx); Gait difficulty; Primary osteoarthritis involving multiple joints; Insomnia, unspecified type 03/07/[address] [facility] [address] [place] [address] Name, MD Stef Durable Medical Equipment 03/07/2025 Travel 03/06/[address] [facility] [address] [place] [address] Flakita Aguilera MA chart prep from Last 3 Months Immunizations Immunization Administration Dates Next Due Influenza High-dose Quadriva [...] Sign Reading Time Taken Comments Blood Pressure 118/74 03/07/2025 1:12 PM EDT Pulse 111 03/07/2025 1:12 PM EDT Temperature 36.1 C (97 F) 03/07/2025 1:12 PM EDT Respiratory Rate 12 03/07/2025 1:12 PM EDT Oxygen Saturation 99% 03/07/2025 1:12 PM EDT Inhaled Oxygen Concentration - - Weight 38.2 kg (84 lb 3.2 oz) 03/07/2025 1:12 PM EDT Height 142.2 cm (4' 8 ) 08/01/2024 11:57 AM EDT Body Mass Index 18.88 08/01/2024 11:57 AM EDT Plan of Treatment Upcoming Encounters Date Type Department Care Team (Late st Contact Info) Description 06/01/2025 2:30 PM EDT Office Visit [facility] MED[facility]INE [address] [place] [address] [phone] Kimberleyluis enrique Laurita, HIGHWAY PAINTER HELPER [address] [place], [place] [phone] 06/07/2025 4:00 PM EDT Office Visit [facility] [address] [place], [place] [phone] Name, MD Stef [address] [place], [place] [phone] Health Maintenance Due Date Last Done Comments RSV Patients and Patients Aged 60 years or older (1 - 1-dose 75+ series) 2015 COVID-19 Vaccine ( season) 2024 02/25/2022, 01/09/2021 SDOH Screening 01/27/2025 01/28/2024 Influenza Vaccine (#1) 2025 , 09/22/2022, 07/24/2021, Additional history exists Alcohol/Substance Use Screening 03/07/2026 03/07/2025 Depression Screening 03/07/2026 03/07/2025, 03/07/20 Tobacco Screening 03/07/2026 03/07/2025 DTaP/Tdap/Td Vaccines (2 - Td or Tdap) [...] patient's age to complete this topic Meningococcal B Vaccine Aged Out No l onger eligible based on patient's age to complete [...] Diagnosis Comments HIGH SENSITIVITY TROPONIN I Routine 04/27/2025 8:15 AM EDT MAGNESIUM Routine 04/27/2025 7:52 AM EDT COMPREHENSIVE METABOLIC PANEL Routine 04/27/2025 7:52 AM EDT CBC WITH AUTO DIFFERENTIAL Routine 04/27/2025 7:[address] ABDOMEN PELVIS W CONTRAST Routine 04/27/2025 7:52 AM EDT OBSX1 Routine 03/31/2025 4:54 PM EDT TYPE AND SCREEN Routine 03/31/2025 3:05 PM EDT HIGH SENSITIVITY TROPONIN I Routine 03/31/2025 2:54 PM EDT LIPASE Routine 03/31/2025 2:54 PM EDT C-REACTIVE PROTEIN Routine 03/31/2025 2: 54 PM EDT MAGNESIUM Routine 03/31/2025 2:54 PM EDT BASIC METABOLIC PANEL Routine 03/31/2025 2:54 PM EDT HEPATIC FUNCTION PANEL Routine 03/31/2025 2:54 PM EDT CBC WITH AUTO DIFFERENTIAL Routine 03/31/2025 2:54 PM EDT XR CHEST 1 VIEW Routine 03/31/2025 1:00 PM EDT LIPID PANEL, STANDARD Routine 01/28/2024 11:40 AM EDT Dementia associated with other underlying disease, with anxiety, unspecified dementia severity (CMS/HCC) Coronary artery disease involving sycuan coronary artery of sycuan heart without angina pectoris Other chronic pain Mixed stress and urge urinary incontinence from Last 3 Months or Most Recently Relevant to Health Maintenance Results * High Sensitivity Troponin I (04/27/2025 8:15 AM EDT) Only the most recent of2 resultswithin the time period is included. [facility] TROPONIN I HIGH SENSITIVITY 4.6 <3.5 - 17.0 ng/L [facility] Comment:The Lal high sens itivity Troponin-I results should beused in conjunction with other diagnostic information suchas ECG, clinical observations and information, and patientsymptoms to aid in the diagnosis of ID. 04/27/2025 8:15 AM EDT 04/27/2025 8:17 AM EDT us Generic External Data Provider LAB BLOOD ORDERAB LES Final Result [facility] [address] [place] [address] [phone] * (ABNORMAL) CBC auto differential (04/27/2025 7:52 AM EDT) Only the most recent of2 resultswithin the time period is included. [facility] White Blood Count 7.3 4.8 - 10.8 X10*3/uL [facility] Red Blood Count 3.73(L) 4.20 - 5.50 X10*6/uL [facility] Hemoglobin 11.3(L) 12.0 - 16.0 g/dl [facility] Hematocrit 34.3(L) 37.0 - 47.0 % [facility] Mean Corpuscular Volume 92.0 80.0 - 98.0 fL [facility] Mean Corpuscular Hemoglobin 30.3 27.0 - 33.0 pg [facility] Mean Corpuscular HGB Conc 32.9 31.0 - 35.0 g/dl [facility] Red Cell Distribution Width 14.4 11.0 - 16.0 % [facility] Platelet Count 350 160 - 400 X10*3/uL [facility] Mean Platelet Volume 11.5 9.4 - 12.3 fL [facility] Neutrophils Percent Auto 64.7 45 - 73 % [facility] Imm Gran Pct Auto 0.3 0.0 - 0.4 % [facility] Lymphocytes Percent Auto 23.8 20 - 40 % [facility] Monocytes Percent Auto 9.4 2 - 11 % [facility] Eosinophils Percent Auto 1.4 0 - 4 % [facility] Basophils Percent Auto 0.4 0 - 2 % [facility] NRBC Pct Auto 0.0 0.0 - 0.2 /100WBC [facility] Neutrophils Absolute Auto 4.7 2.0 - 8.3 x10*3/uL [facility] Imm Gran Abs Auto 0.02 0.00 - 0.03 X10*3/uL [facility] Lymphocytes Absolute Auto 1.7 1.2 - 4.9 X10*3/uL [facility] Monocytes Absolute Auto 0.7 0.1 - 1.2 X10*3/uL [facility] Eosinophils Absolute Auto 0.1 0.0 - 0.4 X10*3/uL [facility] Basophils Absolute Auto 0.0 0.0 - 0.2 X10*3/uL [facility] NRBC Abs Auto 0.000 0.0 - 0.012 X10*3/uL [facility] 04/27/2025 7:52 AM EDT 04/27/2025 7:55 AM EDT us Generic External Data Provider LAB BLOOD ORDERAB LES Final Result [facility] [address] [place] [phone] * CT Abdomen Pelvis w/ Contrast (04/27/2025 7:52 AM EDT) Anatomical Region Laterality Modality Body, Pelvis, Abdomen Computed T omography 04/27/2025 7:52 AM EDT Narrative 04/27/2025 9:20 AM EDT [address] [address] [address] Scan Report Signed Patient: Elisa Weaver MR#: [id number] : 1940 Acct:[id number] Age/Sex: 84 / F ADM Date: 04/27/25 Loc: HO.ED Attending Dr: Ordering Physician: Kacey La Date of Service: 04/27/25 Procedure(s): CT abdomen pelvis w IV con Accession Number(s): [id number] cc: Kacey La; Name,Stef ESTRADA Report Number: [id number]: Total DLP = 235.00 mGy-cm EXAMINATION: CT ABDOMEN PELVIS WITH IV CONTRAST HISTORY: abd pain, nausea, vomiting COMPARISON: Comparison is made with the prior examination dated 02/01/2025. TECHNIQUE: CT scan of the abdomen and pelvis was performed following administration of 85 mL Omnipaque 350 using standard departmental protocol. Coronal and sagittal reformatted images were generated and reviewed. Oral contrast material was not administered at the request of the referring physician. This CT exam was performed with one or more of the following dose reduction techniques: automated exposure control, adjustment of the mA and/or kV according to patient size, use of iterative reconstruction technique. DLP: 235 mGy-cm FINDINGS: LOWER CHEST: The visualized lung bases are clear. There is no pleural effusion. CARDIOVASCULATURE: The heart is normal in size. There is no pericardial effusion. LIVER: The liver is normal in size and contour. There is focal fatty infiltration adjacent to the fissure for the ligamentum teres. No liver mass is identified. The hepatic and portal veins are patent. GALLBLADDER / BILE DUCTS: There is cholelithiasis. There is no intra or extrahepatic biliary ductal dilatation. SPLEEN: The spleen is normal in size. No focal splenic lesion is identified. PANCREAS: The pancreas is unremarkable in appearance. ADRENAL GLANDS: Within normal limits. KIDNEYS/RETROPERITONEUM: No renal calculi are identified. There is no hydronephrosis. No renal masses are identified. LYMPH NODES: No abdominal or pelvic lymphadenopathy. VASCULATURE: Again seen is atherosclerotic calcification of the abdominal aorta with a probable moderate to severe stenosis of the left common iliac artery. There is no aneurysm. MESENTERY/PERITONEUM: No free fluid. No masses. There is no free intraperitoneal gas. STOMACH: There is marked wall thickening of the distal esophagus. The stomach is unremarkable. SMALL BOWEL: The small bowel is normal in caliber. COLON: There is a large amount of stool throughout the colon. APPENDIX: The appendix is not seen, however no inflammatory changes are seen adjacent to the cecum. URINARY BLADDER/PELVIC ORGANS: The urinary bladder is collapsed, limiting evaluation. Peripheral calcifications in the uterus likely vascular in nature. BONES / SOFT TISSUES: There is a moderate to severe compression deformity of L2 without change. CT/CT abdomen pelvis w IV con IMPRESSION: 1. Marked wall thickening of the distal esophagus. Further evaluation with upper endoscopy is recommended. 2. Cholelithiasis. 3. Large amount of stool throughout the colon. Electronically signed by: Darrell Paulino MD 04/27/2025 09:17 AM EDT Dictated By: Darrell Paulino MD Signed By: <Electronically signed by Darrell Paulino MD in OV> 04/27/25 0917 DD/ 0752 TD/TT: 04/27/[address] Bailiff Or Sheriff: Procedure Note Donotuseinterpreter, Image - 04/27/[address] [address] [address] Scan Report Signed Patient: Graeme Weaver#: [id number] : 1940cct:[id number] Age/Sex: 84 / FADM Date: 04/27/25 Loc: HO.ED Attending Dr: Ordering Physician: Kacey La Date of Service: 04/27/25 Procedure(s): CT abdomen pelvis w IV con Accession Number(s): [id number] cc: Kacey La; Name,Stef Report Number: [id number]: Total DLP = 235.00 mGy-cm EXAMINATION: CT ABDOMEN PELVIS WITH IV CONTRAST HISTORY: abd pain, nausea, vomiting COMPARISON: Comparison is made with the prior examination dated 02/01/2025. TECHNIQUE: CT scan of the abdomen and pelvis was performed following administration of 85 mL Omnipaque 350 using standard departmental protocol. Coronal and sagittal reformatted images were generated and reviewed. Oral contrast material was not administered at the request of the referring physician. This CT exam was performed with one or more of the following dose reduction techniques: automated exposure control, adjustment of the mA and/or kV according to patient size, use of iterative reconstruction technique. DLP: 235 mGy-cm FINDINGS: LOWER CHEST: The visualized lung bases are clear. There is no pleural effusion. CARDIOVASCULATURE: The heart is normal in size. There is no pericardial effusion. LIVER: The liver is normal in size and contour. There is focal fatty infiltration adjacent to the fissure for the ligamentum teres. No liver mass is identified. The hepatic and portal veins are patent. GALLBLADDER / BILE DUCTS: There is cholelithiasis. There is no intra or extrahepatic biliary ductal dilatation. SPLEEN: The spleen is normal in size. No focal splenic lesion is identified. PANCREAS: The pancreas is unremarkable in appearance. ADRENAL GLANDS: Within normal limits. KIDNEYS/RETROPERITONEUM: No renal calculi are identified. There is no hydronephrosis. No renal masses are identified. LYMPH NODES: No abdominal or pelvic lymphadenopathy. VASCULATURE: Again seen is atherosclerotic calcification of the abdominal aorta with a probable moderate to severe stenosis of the left common iliac artery. There is no aneurysm. MESENTERY/PERITONEUM: No free fluid. No masses. There is no free intraperitoneal gas. STOMACH: There is marked wall thickening of the distal esophagus. The stomach is unremarkable. SMALL BOWEL: The small bowel is normal in caliber. COLON: There is a large amount of stool throughout the colon. APPENDIX: The appendix is not seen, however no inflammatory changes are seen adjacent to the cecum. URINARY BLADDER/PELVIC ORGANS: The urinary bladder is collapsed, limiting evaluation. Peripheral calcifications in the uterus likely vascular in nature. BONES / SOFT TISSUES: There is a moderate to severe compression deformity of L2 without change. CT/CT abdomen pelvis w IV con IMPRESSION: 1. Marked wall thickening of the distal esophagus. Further evaluation with upper endoscopy is recommended. 2. Cholelithiasis. 3. Large amount of stool throughout the colon. Electronically signed by: Darrell Paulino MD 04/27/2025 09:17 AM EDT RP Dictated By: Darrell Paulino MD Signed By: <Electronically signed by Darrell Paulino MD in OV> 04/27/25916 DD/ 075 TD/TT: 04/27/[address] Bailiff Or Sheriff: [facility] External Provider IMG CT PROCEDURES Edited Result - Final * Magnesium (04/27/2025 7:52 AM EDT) Only the most recent of2 resultswithin the time period is included. Magnesium 2.1 1.6 - 2.6 mg/dL [facility] 04/27/2025 7:52 AM EDT 04/27/2025 7:55 AM EDT Generic External Data Provider LAB BLOOD ORDERAB LES Final Result [facility] [address] [place] [phone] * (ABNORMAL) Comprehensive Metabolic Panel (04/27/2025 7:52 AM EDT) Sodium 135 135 - 145 mmol/L [facility] Potassium 4.3 3.3 - 5.1 mmol/L [facility] Chloride 104 96 - 108 mmol/L [facility] Carbon Dioxide 26 22 - 29 mmol/L [facility] Anion Gap 9(L) 12 - 20 [facility] Urea Nitrogen (BUN) 14 9 - 16 mg/dL [facility] Creatinine, Serum 0.53 0.5 - 1.4 mg/dL [facility] Creatinine Clr Calc Pharmacy 48.1 [facility] Comment:Provided height and weight: 144.78 cm,39 kg.eGFR (calculated from the MDRD study equation) and eCrCl(calculated from the Cockcroft-Gault equation) are based ondifferent parameters and may not yield comparable results.If eCrCl result is absurd, please check patient'sheight/weight. Estimated Glomerular Filt Rate >60 [facility] Comment:Chronic Kidney Disea se: Estimated GFR < 60 mL/min/[id number] Kidney Disease: Estimated GFR < 15 mL/min/1.73m2 Glucose 155(H) 60 - 115 mg/dL [facility] Calcium 9.3 8.4 - 10.2 mg/dL [facility] Bilirubin, Total 0.1 0.0 - 1.0 mg/dL [facility] Aspartate Amino Transferase 21 5 - 31 U/L [facility] Alanine Aminotransferase 11 0 - 31 U/L [facility] Total Protein 7.2 6.5 - 8.0 g/dL [facility] Albumin Level 3.8 3.5 - 5.0 g/dL [facility] Alkaline Phosphatase 94 39 - 117 U/L [facility] 04/27/2025 7:52 AM EDT 04/27/2025 7:55 AM EDT us Generic External Data Provider LAB BLOOD ORDERAB LES Final Result [facility] [address] [place] [phone] * OBSX1 (03/31/2025 4:54 PM EDT) OBS1 POSITIVE NEGATIVE [facility] 03/31/2025 4:54 PM EDT 03/31/2025 5:03 PM EDT us Generic External Data Provider LAB BLOOD ORDERAB LES Final Result Performing Organization Address [facility] Co de Phone Number [facility] [address] [place] [phone] * Type and screen (03/31/2025 3:05 PM EDT) Blood Type OP [facility] Antibody Screen NEGATIVE [facility] 03/31/2025 3:05 PM EDT 03/31/2025 3:14 PM EDT Narrative [facility] - 03/31/2025 3:51 PM EDT nono Generic External Data Provider LAB BLOOD BANK TE ST ORDERABLES Final Result Performing Organization Address [facility] de Phone Number [facility] [address] [place] [phone] * (ABNORMAL) C-reactive Protein (03/31/2025 2:54 PM EDT) C Reactive Protein 0.73(H) < or = 0.50 mg/dL [facility] 03/31/2025 2:54 PM EDT 03/31/2025 2:57 PM EDT us Generic External Data Provider LAB BLOOD ORDERAB LES Final Result Performing Organization Address [facility] Co de Phone Number [facility] [address] [place] [phone] * Lipase (03/31/2025 2:54 PM EDT) Lipase 13 8 - 78 U/L [facility] 03/31/2025 2:54 PM EDT 03/31/2025 2:57 PM EDT us Generic External Data Provider LAB BLOOD ORDERAB LES Final Result Performing Organization Address [facility] Co de Phone Number [facility] [address] [place] [phone] [phone] * (ABNORMAL) Hepatic Function Panel (03/31/2025 2:54 PM EDT) [facility] Bilirubin, Total 0.3 0.0 - 1.0 mg/dL [facility] Bilirubin, Direct 0.1 0.0 - 0.5 mg/dL [facility] Aspartate Amino Transferase 28 5 - 31 U/L [facility] Alanine Aminotransferase 13 0 - 31 U/L [facility] Total Protein 9.1(H) 6.5 - 8.0 g/dL [facility] Albumin Level 5.0 3.5 - 5.0 g/dL [facility] Alkaline Phosphatase 75 39 - 117 U/L [facility] 03/31/2025 2:54 PM EDT 03/31/2025 2:57 PM EDT Generic External Data Provider LAB BLOOD ORDERAB LES Final Result Performing Organization Address City/[facility]/ZIP Co de Phone Number [facility] [address] [place] [phone] * (ABNORMAL) Basic Metabolic Panel (03/31/2025 2:54 PM EDT) [facility] Sodium 141 135 - 145 mmol/L [facility] Potassium 3.4 3.3 - 5.1 mmol/L [facility] Chloride 90(L) 96 - 108 mmol/L [facility] Carbon Dioxide 34(H) 22 - 29 mmol/L [facility] Anion Gap 20 12 - 20 [facility] Urea Nitrogen (BUN) 12 9 - 16 mg/dL [facility] Creatinine, Serum 0.72 0.5 - 1.4 mg/dL [facility] Creatinine Clr Calc Pharmacy 39.6 [facility] Comment:Provided height and weight: 149.86 cm,45.359 kg.eGFR (calculated from the MDRD study equation) and eCrCl(calculated from the Cockcroft-Gault equation) are based ondifferent parameters and may not yield comparable results.If eCrCl result is absurd, please check patient'sheight/weight. Estimated Glomerular Filt Rate >60 [facility] Comment:Chronic Kidney Disea se: Estimated GFR < 60 mL/min/1.17q0Bquyam Kidney Disease: Estimated GFR < 15 mL/min/1.73m2 Glucose 193(H) 60 - 115 mg/dL [facility] Calcium 10.7(H) 8.4 - 10.2 mg/dL [facility] 03/31/2025 2:54 PM EDT 03/31/2025 2:57 PM EDT us Generic External Data Provider LAB BLOOD ORDERAB LES Final Result Performing Organization Address City/State/[facility] Co de Phone Number [facility] [address] [place] [phone] * XR Chest 1 View (03/31/2025 1:00 PM EDT) Anatomical Region Laterality Modality Chest Radiographic Ailin ging 03/31/2025 1:00 PM EDT Narrative 03/31/2025 2:17 PM EDT [address] [address] XRay Report Signed Patient: Elisa Weaver MR#: [id number] : 1940 Acct:[id number] Age/Sex: 84 / F ADM Date: 03/31/25 Loc: .ED Attending Dr: Ordering Physician: Emiliano Castillo MD Date of Service: 03/31/25 Procedure(s): XR chest 1V Accession Number(s): [id number] cc: Emiliano Castillo MD; Name,Stef ESTRADA EXAMINATION: XR CHEST CLINICAL INFORMATION: chest pain COMPARISON: February 01, 2025 TECHNIQUE: Frontal view of the chest was obtained. FINDINGS: Pulmonary reticular pattern. No consolidation, pleural fissure pneumothorax. Cardiomediastinal silhouette is straight calcified mitral valve and aortic arch. Osteopenia versus osteoporosis. S-shaped curvature of the thoracolumbar spine. Multilevel spondylosis. Degenerative changes in the shoulders. Focal calcifications in the inferior left glenohumeral joint. 2 mm calcification at the right supraspinatus tendon insertion. XR/XR chest 1V IMPRESSION: Chronic interstitial lung disease without acute airspace disease. 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 Calcific tendinosis versus tendinopathy, right supraspinatus. Calcified mitral valve. Electronically signed by: Abdirashid Villarreal MD 03/31/2025 02:14 PM EDT RP Dictated By: Abdirashid Caldera MD Signed By: <Electronically signed by Abdirashid Shaver MD in OV> 03/31/25 1414 DD/ 1300 TD/TT: 03/31/[address] Bailiff Or Sheriff: Procedure Note Donotuseinterpreter, Image - 03/31/2025 [place] [address] XRay Report Signed Patient: Graeme Weaver#: [id number] : 1940cct:[id number] Age/Sex: 84 / FADM Date: 03/31/25 Loc: .ED Attending Dr: Ordering Physician: Emiliano Castillo MD Date of Service: 03/31/25 Procedure(s): XR chest 1V Accession Number(s): [id number] cc: Emiliano Castillo MD; Name,Stef ESTRADA EXAMINATION: XR CHEST CLINICAL INFORMATION: chest pain COMPARISON: February 01, 2025 TECHNIQUE: Frontal view of the chest was obtained. FINDINGS: Pulmonary reticular pattern. No consolidation, pleural fissure pneumothorax. Cardiomediastinal silhouette is straight calcified mitral valve and aortic arch. Osteopenia versus osteoporosis. S-shaped curvature of the thoracolumbar spine. Multilevel spondylosis. Degenerative changes in the shoulders. Focal calcifications in the inferior left glenohumeral joint. 2 mm calcification at the right supraspinatus tendon insertion. XR/XR chest 1V IMPRESSION: Chronic interstitial lung disease without acute airspace disease. 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 Calcific tendinosis versus tendinopathy, right supraspinatus. Calcified mitral valve. Electronically signed by: Abdirashid Villarreal MD 03/31/2025 02:14 PM EDT RP Dictated By: Abdirashid Caldera MD Signed By: <Electronically signed by Abdirashid Shaver MDin OV> 03/31/25 1414 DD/ 1300 TD/TT: 03/31/[address] Bailiff Or Sheriff: [facility] External Provider IMG XR PROCEDURES Final Result * (ABNORMAL) Lipid Panel, Standard (01/28/2024 11:40 AM EDT) Triglycerides 265(H) <150 mg/dL [facility] Comment:Desirable Triglyceri de: less than 150 mg/dLBorderline High Triglyceride 150-199 mg/dLHigh Triglyceride: 200-499 mg/dLVery High Triglyceride: greater than or equal to 5OO mg/dL Cholesterol 212(H) <200 mg/dL [facility] Comment:Desirable Cholestero l: less than 200 mg/dLBorderline High Cholesterol: 200-239 mg/dLHigh Cholesterol: greater than 239 mg/dL LDL Cholesterol Calculated 122(H) <100 mg/dL [facility] Comment:Desirable LDL: less than 100 mg/dLNear Optimal/Above Optimal LDL: 110- 129 mg/dLBorderline High LDL: 130-159 mg/dLHigh LDL: 160-189 mg/dLVery High LDL: greater than or equal to 190 mg/dL HDL Cholesterol 37(L) >40 mg/dL [facility] Comment:Desirable HDL: great er than 40 mg/dL Note: This HDL assay may give artificially low results in patients with liver disease. Blood Venous blood specimen / Unknown 01/28/2024 11:40 AM EDT 01/28/2024 1:30 PM EDT Stef Greer MD LAB BLOOD ORDERABLES Final Resul t [facility] [address] [place] [address] [phone] from Last 3 Months or Most Recently Relevant to Health Maintenance Insurance [facility] DETENTION OPTIONS (HMO D-SNP) [place] [id number] DENTAL - [facility] Care Teams Dicer Machine Operator Relationship Specialty Start Date End Date Name, MD Stef [address] [place] [address] PCP - General Family Medicine 01/28/16 [facility] 05/16/25
--- OUTSIDE RECORDS SUMMARY | 2025-06-01 11:56 | XMS_ITS | Encounter Summary ---
Author Organization [employer] Address [address] [facility] 7[address] [place] [address] Care Team Providers Care Developmental Writing Instructor Name Role Phone Name, Stef ESTRADA Primary Care Provider [phone] Reason for Visit * Reason Onset Date Comments Hospital Follow-up 10/28/2024 Encounter Details Date Type Department Care Team ([facility] st Contact Info) Description 10/28/2024 Telephone [facility] [address] [place], [place] [phone] Name, MD Stef [address] [place] [address] Hospital Follow-up Social History Tobacco Use Types [...] from pt requesting a HDF appt. Hospital: [facility] Date of admission: 10/18 Discharge date: 10/20 Diagnosed: Gastritis and UTI Huma states that Pt son told her that they should hold med clopidogrel (Plavix) 75 MG tablet Due to pt having bad Gastritis. Huma said that she looked at the Notes from the Hospital and there is nothing about holding them on the Notes. *Send message to [facility] Coordinators Contact SUGAR SAMPLER to Schedule pt [phone] documented in this encounter Plan of Treatment Upcoming Encounters Date Type Department Care Team ([facility] st Contact Info) Description 06/01/2025 2:30 PM EDT Office Visit [facility] [address] [place] [phone] Laurita Samaniego FNP [address] [place] [address] 06/07/2025 4:00 PM EDT Office Visit [facility] [address] [place] [address] [phone] Name, MD Stef [address] [place] [address] documented as of this encounter Visit Diagnoses Not on filedocumented in this encounter Additional Health Concerns Assessment Noted Time PHQ-9 Depression Total Score: 0 01/28/20 10:49 AM EDT documented as of this encounter Care Teams Developmental Writing Instructor Relationship Specialty Start Date End Date Name, MD Stef [address] [place] [address] PCP - General Family Medicine [facility] 05/16/25 documented as of this encounter
--- OUTSIDE RECORDS SUMMARY | 2025-06-01 11:56 | XMS_ITS | Encounter Summary ---
Author Organization [employer] Address [address] [facility] 7t [place] [address] Care Team Providers Care Acute Care Registered Nurse Name Role Phone Name, Stef ESTRADA Primary Care Provider [phone] Encounter Details Date Type Department Care Team (Late st Contact Info) Description 11/12/2022 Telephone [facility] [address] [place] [address] [phone] Name, MD Stef [address] [place] [phone] Social History Tobacco Use Types Packs/Day Years [...] 2:30 PM EDT Office Visit [facility] [address] [place] [address] [phone] Laurita Samaniego FNP [address] [place] [address] 06/07/2025 4:00 PM EDT Office Visit [facility] [address] [place] [address] Name, [place] [address] documented as of this encounter Visit Diagnoses Not on filedocumented in this encounter Additional Health Concerns Assessment Noted Time PHQ-9 Depression Total Score: 0 09/22/20 10:00 AM EST documented as of this encounter Care Teams Acute Care Registered Nurse Relationship Specialty Start Date End Date Name, [place] [address] PCP - General Family Medicine 01/28/16 Y[facility] 07/27/24 05/21/25 [facility] 05/16/25 documented as of this encounter
--- OUTSIDE RECORDS SUMMARY | 2025-06-01 11:56 | XMS_ITS | Encounter Summary ---
Author Organization [employer] Address [address] [facility] 7[address] [place] [address] Care Team Providers Care Activity Therapist Name Role Phone Name, Stef ESTRADA Primary Care Provider [phone] Reason for Visit * Reason Onset Date Comments Hospital Follow-up 05/05/2025 Encounter Details Date Type Department Care Team ([facility] st Contact Info) Description 05/05/2025 Telephone [facility] [address] [place], [place] [phone] Name, MD Stef [address] [place] [address] Hospital Follow-up Social History Tobacco Use Types [...] PM EDT Tc from Nena Becerra from [facility] requesting a HDF appt. Hospital: [facility] Date of admission: 04/27 Discharge date: 04/30 Diagnosed: Abdominal pain and upper GI bleed Contact Nena at [phone] documented in this encounter Plan of Treatment Upcoming Encounters Date Type Department Care Team (Late st Contact Info) Description 06/01/2025 2:30 PM EDT Office Visit [facility] [address] [place] [phone] Laurita Samaniego FNP [address] [place] [address] 06/07/2025 4:00 PM EDT Office Visit [facility] [address] [place] [phone] NameStef MD [address] [place] [phone] documented as of this encounter Visit Diagnoses Not on filedocumented in this encounter Additional Health Concerns Assessment Noted Time PHQ-9 Depression Total Score: 0 03/07/20 25 1:14 PM EDT documented as of this encounter Care Teams Activity Therapist Relationship Specialty Start Date End Date Stef Greer MD [address] [place] [address] PCP - General Family Medicine 01/28/16 [facility] 07/27/24 05/21/25 [facility] 05/16/25 documented as of this encounter
== END 2025-06-01 12:10 | disposition home or self-care (01) ==
PROVIDERS: Visit Provider Internal Medicine Gastroenterology
DX: K80.20 Calculus of gallbladder without cholecystitis without obstruction (principal); R11.2 Nausea with vomiting, unspecified; K25.9 Gastric ulcer, unspecified as acute or chronic, without hemorrhage or perforation; K22.10 Ulcer of esophagus without bleeding; K59.09 Other constipation
CPT/HCPCS: 99214

== ENCOUNTER → 2025-06-01 10:34 | Outpatient (BNVA) | payer OTHER, SELFPAY | PROVIDERS: Visit Provider Internal Medicine Gastroenterology | DX: K80.20 Calculus of gallbladder without cholecystitis without obstruction (principal); R11.2 Nausea with vomiting, unspecified; K25.9 Gastric ulcer, unspecified as acute or chronic, without hemorrhage or perforation; K22.10 Ulcer of esophagus without bleeding; K59.09 Other constipation | CPT/HCPCS: 99212 ==

== ENCOUNTER 2025-06-29 10:27 | Outpatient (AMB) | payer OTHER, SELFPAY ==
--- NOTE | 2025-06-29 11:22 | MHC.OFFVIS ---
Intake Visit Reasons: chronic constipation Intake Note: Patient telehealth follow up for chronic constipation Patient cc: constipation are better with med but she still having some episodes on and off. Supervisor Prop Making Required: Yes Accompanied by: Family/Other Allergies No Known Allergies (NO KNOWN ALLERGIES) Allergy (Unknown, Verified 06/29/25 11:22) UNKNOWN Medication List - Last Reconciled 06/29/25 by Shannon Aragon MD acetaminophen 500 mg PO Q6H PRN amitriptyline 10 mg PO BEDTIME atorvastatin 40 mg PO DAILY bisacodyl (Fleet Bisacodyl) 10 mg (30 mL) ND DAILY PRN 2 days calcium carbonate-vitamin D3 500 mg-10 mcg (400 unit) (Oyster Shell Calcium-Vitamin D3) 1 tab PO BID clopidogrel 75 mg PO DAILY food supplemt, lactose-reduced (Boost) ea PO melatonin 5 mg PO BEDTIME PRN mirtazapine 30 mg PO BEDTIME multivitamin 1 tab PO DAILY pantoprazole 40 mg PO BID@0630,1630 polyethylene glycol 3350 (Miralax) 17 grams PO BID 30 days sennosides-docusate sodium 8.6-50 mg (Laxative Stool Softener With Senna) 2 tab-caps (2 x 8.6-50 mg) PO BEDTIME 30 days sertraline 1 tab PO DAILY HPI HPI chronic constipation: Details: GI clinic visit for this 84 year old German-speaking female for follow-up after recent hospitalization for dysphagia and odynophagia TODAY'S VISIT: Telephone interpreter for the deaf # [phone] Pt's son stated constipation is better with med but she still having some episodes on and off. Spoke to her son, Robby She is better and gets instermittent constipation and gives her Miralax Gives Miralax every 2-3 days when she complains of abdominal pain. She is eating her meals and weight is stable. PAST VISIT: Pt is accompanied by her son and GD. Patient cc: Patient cc: abdominal discomfort, black hard stool, Hx obtained from pt's son Pt has been taking jello, milk and several cups of rice pudding and a protein shake daily Her wt is stable Pt has chronic constipation - has a BM every 2-3 days with passage of hard stools with black balls Pt is not eating well - states her esophagus hurts when she eats Eating like a toddler. Eats more liquids (Ensure) rather than solids Wt loss from 106 to 87 lbs over the past 8 months Weighs 98 lbs Low energy, does'nt want to eat Family giving her soups, ensure and electrolytes Eating less than 1/2 of her food like a baby Pt has been declining and dementia is getting worse Pt complains of nausea and denies vomiting. Wt loss from 120 to 98 lbs over the past 5 to 6 months Pt wears diapers and has a normal BM daily. Denies recent diarrhea, black stools or rectal bleeding. Patient denies major cardiac or pulmonary problems, loud snoring or sleep apnea Denies problems with anesthesia in the past. Denies being on chronic anticoagulation. Patient denies known family history of colon polyps, colon cancer or other GI malignancies. Pt has arthritis with pain in the shoulders LABS IN [employer] : Reviewed IMAGING STUDIES: 08/04/[address] SCAN SHOWED: Acute to subacute superior endplate compression deformity L2 vertebra with] millimeter of retropulsion upon central canal. Cholelithiasis. Nonobstructing nephrolithiasis, left kidney. Fat-containing umbilical hernia. Hiatal hernia. Calcified mitral valve ENDOSCOPIC STUDIES: 08/05/24 EGD SHOWED: ESOPHAGUS: Small hiatal hernia with severe erosive esophagitis with possible aaron esophagitis - status post biopsies and brushings STOMACH: Three 3-5 mm non-bleeding ulcers in the gastric antrum - biopsies were obtained Plan: 1. IV PPI twice daily and switch to PO Omeprazole twice a day once pt is tolerating a PO diet. 2. [place] of clear liquid diet tonight and advance diet as tolerated. BIOPSIES SHOWED: A. Stomach, antrum, biopsy: Antral-type mucosa with mild chronic inactive inflammation; no Helicobacter organisms seen. B. Stomach, ulcer, biopsy: Antral-type mucosa with chronic active erosive inflammation and regenerative changes; no Helicobacter organisms seen. C. Esophagus, biopsy: Fragments of inflamed smooth muscle and ulcer/necroinflammatory material; no atypia or fungi identified Fungal cultures showed Aaron glabrata PAST GI HISTORY BY REVIEW OF MEDICAL RECORDS: 08/05/24 patient was seen in consultation during hospitalization: Elisa Weaver is 83 years old with past medical history significant hyperlipidemia, hypertension, CVA, CAD, dementia and cholelithiasis who was brought to the emergency department due to sudden onset of severe epigastric pain associated with nausea and vomiting. Patient stated that the pain radiate to the chest. She denied any shortness on breath, cough, fever, chills, dizziness or palpitations. She did not report any acute urinary symptoms. Per chart review: Patient had multiple visits to the emergency department with similar symptoms. She has been evaluated in the past with surgery service for [facility] Medical History Systolic murmur Emphysematous cystitis Anemia Cholecystitis Esophagitis Weight loss Candidiasis, esophageal Nausea & vomiting Gallstones Abnormal nuclear stress test HLD (hyperlipidemia) HTN (hypertension) CVA, old, disturbances of vision (~09/2019) NSTEMI (non-ST elevated myocardial infarction) Dementia Coronary artery disease Surgical History Previous section H/O eye surgery History of esophagogastroduodenoscopy (EGD) Family History Father No problems noted. Mother No problems noted. 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 Review of Systems Const All systems reviewed & are unremarkable except as noted in HPI and below Telehealth Telehealth Telehealth Platform: Telephone Location of provider rendering services: practice address Location of patient: address on file Patient Identification confirmed using: Name, : Yes Telehealth method: voice only Patient verbally consented to treatment: Yes Patient verbally consented to billing insurance company: Yes Patient informed of any privacy concerns related to visit: Yes Minutes spent on Phone/Video with Pt.: 15 Assessment & Plan Assessment & Plan (1) Nausea & vomiting: Code(s): R11.2 - Nausea with vomiting, unspecified Category: Medical (2) Gastric ulcer: Code(s): K25.9 - Gastric ulcer, unspecified as acute or chronic, without hemorrhage or perforation Category: Medical (3) Gastritis: Code(s): K29.70 - Gastritis, unspecified, without bleeding Category: Medical (4) Erosive esophagitis: Code(s): K22.10 - Ulcer of esophagus without bleeding Category: Medical (5) Chronic constipation: Code(s): K59.09 - Other constipation Category: Medical Plan 84 year old German-speaking female with HLD, HTN, CVA, CAD on Plavix and statin, and dementia seen for FU of dysphagia and odynophagia 08/05/24 patient was seen in consultation during hospitalization: Elisa Weaver is 83 years old with past medical history significant hyperlipidemia, hypertension, CVA, CAD, dementia and cholelithiasis who was brought to the emergency department due to sudden onset of severe epigastric pain associated with nausea and vomiting. Patient stated that the pain radiate to the chest. She denied any shortness on breath, cough, fever, chills, dizziness or palpitations. She did not report any acute urinary symptoms. 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 She has resumed eating and has no further weight loss per family so the symptoms may have been due to dementia Family desires no treatment unless failure to thrive reappears and worsens and then would try IV and then po Voriconazole 200 mg bid for two weeks but interacts with clopidogrel so coagulation would have to be addressed. 11/25/24 Family reported pt states her esophagus hurts when she eats and is not eating well and has lost wt loss from 106 to 87 lbs over the past 8 months Pt's family requested PEG tube placement for nutritional support. Due to concern for persistent infection with Aaron glabrata (which can be resistant to Fluconazole) Pt was discussed with Dr Vogel (ID) and hospitalized and treated for Aaron Glabrata with IV Caspofungin. 04/2025 EGD SHOWED; ESOPHAGUS: Hiatal hernia, benign appearing nodule on gastric side of GE junction. Severe esophagitis from 20 to 30 cms with thick white exudate - biopsies and brushings were obtained. Exudate appeared to be blocking the distal esophagus - suctioned. STOMACH: Diffuse gastritis Plan: [place] of clear liquid diet and if tolerated advance to pureed diet. Continue Pantoprazole 40 mg twice daily. BIOPSIES SHOWED: A. Esophagus, nodule, biopsy: - Cardiac-type mucosa with mild chronic inactive inflammation; no intestinal metaplasia seen. - Negative for H. pylori. - Active esophagitis (neutrophils); no fungi identified. B. Esophagus, distal, biopsy: Fragments of ulcer bed only; no viable epithelium identified; no fungi identified. No growth on fungal cultures 06/01/25 Pt's son and GD advised to: 1. Give a fleet enema today 2. Senna + colace 2 tab at bedtime daily 3. Miralax 17 grams daily 06/29/25 Advised to take Miralax daily or every other day for constipation TV in 3 months Coding Level of Care Code Tele Est Pt Level 3 (78782) Diagnoses Nausea & vomiting R11.2 Gastric ulcer K25.9 Gastritis K29.70 Erosive esophagitis K22.10 Chronic constipation K59.09 Time Spent (min) 15
--- OUTSIDE RECORDS SUMMARY | 2025-06-29 13:09 | XMS_ITS | Encounter Summary ---
Author Organization [employer] Address [address] [facility] 7[address] [place] [address] Care Team Providers Care Mint Wafer Depositor Name Role Phone Name, Stef ESTRADA Primary Care Provider [phone] Reason for Visit * Reason Onset Date Comments Paperwork/Forms 04/18/2024 Encounter Details Date Type Department Care Team ([facility] Contact Info) Description 04/18/2024 Telephone [facility] [address] [place], [place] [phone] Name, MD Stef [address] [place] [address] Paperwork/Forms Social History Tobacco Use Types Packs/Day [...] PM EDT Tc from Emily, nurse at [facility] requesting paperwork to be sign as soon as possible in order to them be able to admit pt into services. Please contact Emily at [phone] if any question. documented in this encounter Plan of Treatment Not on file documented as of this encounter Visit Diagnoses Not on filedocumented in this encounter Additional Health Concerns Assessment Noted Time PHQ-9 Depression Total Score: 0 01/28/20 10:49 AM EDT documented as of this encounter Care Teams Mint Wafer Depositor Relationship Specialty Start Date End Date Name, MD Stef [address] [place] [address] PCP - General Family Medicine 01/28/16 [facility] 07/27/24 05/21/25 [facility] 05/16/25 documented as of this encounter
--- OUTSIDE RECORDS SUMMARY | 2025-06-29 13:09 | XMS_ITS | Encounter Summary ---
Author Organization [employer] Address [address] [facility] 7t [place] [address] Care Team Providers Care Design Checker Name Role Phone Name, Stef ESTRADA Primary Care Provider [phone] Reason for Visit * Reason Onset Date Comments Hospital Follow-up 05/05/2025 Encounter Details Date Type Department Care Team ([facility] st Contact Info) Description 05/05/2025 Telephone [facility] [address] [place], [place] [phone] Name, MD Stef [address] [place] [address] Hospital Follow-up Social History Tobacco Use Types [...] PM EDT Tc from Nena Becerra from [facility] requesting a HDF appt. Hospital: [facility] Date of admission: 04/27 Discharge date: 04/30 Diagnosed: Abdominal pain and upper GI bleed Contact Nena at [phone] documented in this encounter Plan of Treatment Not on file documented as of this encounter Visit Diagnoses Not on filedocumented in this encounter Additional Health Concerns Assessment Noted Time PHQ-9 Depression Total Score: 0 03/07/20 1:14 PM EDT documented as of this encounter Care Teams Design Checker Relationship Specialty Start Date End Date Name, MD Stef [address] [place] [phone] PCP - General Family Medicine 01/28/16 [facility] 07/27/24 05/21/25 [facility] 05/16/25 documented as of this encounter
--- OUTSIDE RECORDS SUMMARY | 2025-06-29 13:09 | XMS_ITS | Encounter Summary ---
Author Organization [employer] Address [address] [facility] 7t [place] [address] Care Team Providers Care 4Th Grade Teacher Name Role Phone Name, Stef ESTRADA Primary Care Provider [phone] Reason for Visit * Reason Onset Date Comments Hospital Follow-up 10/28/2024 Encounter Details Date Type Department Care Team ([facility] st Contact Info) Description 10/28/2024 Telephone [facility] [address] [place], [place] [phone] Name, MD Stef [address] [place] [address] Hospital Follow-up Social History Tobacco Use Types [...] from pt requesting a HDF appt. Hospital: [facility] Date of admission: 10/18 Discharge date: 10/20 Diagnosed: Gastritis and UTI Huma states that Pt son told her that they should hold med clopidogrel (Plavix) 75 MG tablet Due to pt having bad Gastritis. Huma said that she looked at the Notes from the Hospital and there is nothing about holding them on the Notes. *Send message to [facility] Coordinators Contact FINANCIAL SERVICES OFFICER to Schedule pt [phone] documented in this encounter Plan of Treatment Not on file documented as of this encounter Visit Diagnoses Not on filedocumented in this encounter Additional Health Concerns Assessment Noted Time PHQ-9 Depression Total Score: 0 01/28/20 10:49 AM EDT documented as of this encounter Care Teams 4Th Grade Teacher Relationship Specialty Start Date End Date Name, MD Stef [address] [place] [address] PCP - General Family Medicine 01/28/16 Yuliya ALFRED 07/27/24 05/21/25 [facility] 05/16/25 documented as of this encounter
--- OUTSIDE RECORDS SUMMARY | 2025-06-29 13:10 | XMS_ITS | Clinical Summary ---
Author Organization [employer] Address [address] [facility] 7t [place] [address] Care Team Providers Care Shoes Hand Sewer Name Role Phone Name, Stef ESTRADA Primary Care Provider [phone] Allergies Active Allergy Reactions Criticality Noted Date [...] MORNING 30 tablet 2 04/20/20 25 Active sucralfate (Carafate) 1 GM/10ML suspension Take 1 g by mouth before breakfast, before lunch, before evening meal, and at bedtime. 01/26/20 25 Active omeprazole (PriLOSEC) [address] capsule Take 1 capsule (40 mg) by mouth before breakfast. Do not crush or chew. 90 capsule 05/31/20 25 Active melatonin 5 MG tablet Take 1 tablet (5 mg) by mouth at bedtime. Take 1 tablet by mouth at bedtime. 30 tablet 11 06/07/20 025 Active pantoprazole (ProtoNix) 40 MG EC tabletIndications [...] cleanup (will not trigger notification to Pharmacy)) melatonin 5 MG tablet Take 1 tablet by mouth at bedtime. 05/04/20 25 025 Discontinued(Re order (will not trigger notification to Pharmacy)) omeprazole [...] Encounters Date Type Department Care Team Description 06/07/2025 4:00 [place] [address] Stef Greer MD Gastroesophageal reflux disease with esophagitis and hemorrhage (Primary Dx); Dementia associated with other underlying disease, with anxiety, unspecified dementia severity (CMS/HCC) 06/07/2025 Travel 05/31/2025 Refill [facility] [address] [place] [address] Jenna Mixon, PharmJeff 05/22/2025 Patient Outreach [facility] [address] [place] [address] Stef Greer MD Transition Of Care (Tcm) (HDF scheduled.) 05/18/2025 Patient Outreach [facility] [address] [place] [address] Stef Greer MD Transition Of Care (Tcm) (HDF- Unscheduled - unable to communicate with Deb at S.) 05/18/[address] [address] Stef Greer MD Hospital Follow-up; No Show (No show for HDF ) 05/11/[address] [address] Flakita Aguilera [place] july recalls 05/09/2025 Patient Outreach [address] [address] Stef Greer MD Transition Of Care (Tcm) (HDF- Unscheduled SECOND CALL - MAILBOX FULL) 05/05/2025 Patient Outreach [address] [address] Stef Greer MD Transition Of Care (Tcm) (HDF- Unscheduled -unable to LVM, Mailbox is full) 05/05/[address] [address] Stef Greer MD Hospital Follow-up 04/27/2025 Orders Only GENERIC EXTERNAL DATA DEPARTMENT Provider, Generic External Data 04/20/2025 Refill [facility] [address] [place] [address] Stef Greer MD Moderate dementia without behavioral disturbance, psychotic disturbance, mood disturbance, or anxiety, unspecified dementia type (CMS/HCC) 04/06/2025 Telephone [facility] [address] [place] [address] Demetirce Nelson MA Chart Prep 03/31/2025 Orders Only [facility] External Provider, [facility] from Last 3 Months Immunizations Immunization Administration [...] Sign Reading Time Taken Comments Blood Pressure 122/56 06/07/2025 4:27 PM EDT Pulse 92 06/07/2025 4:27 PM EDT Temperature 36.9 C (98.5 F) 06/07/2025 4:27 PM EDT Respiratory Rate 12 06/07/2025 4:27 PM EDT Oxygen Saturation 99% 06/07/2025 4:27 PM EDT Inhaled Oxygen Concentration - - Weight 38.6 kg (85 lb) 06/07/2025 4:27 PM EDT Height 142.2 cm (4' 8 ) 08/01/2024 11:57 AM EDT Body Mass Index 19.06 08/01/2024 11:57 AM EDT Plan of Treatment Health Maintenance Due Date Last Done Comments RSV Patients and Patients Aged 60 years or older (1 - 1-dose 75+ series) 2015 SDOH Screening 01/27/2025 01/28/2024 COVID-19 Vaccine ( season) 2025 02/25/2022, 01/09/2021 Influenza Vaccine (#1) 2025 , 09/22/2022, 07/24/2021, Additional history exists Alcohol/Substance Use Screening 03/07/2026 03/07/2025 Depression Screening 03/07/2026 03/07/2025, 03/07/20 Tobacco Screening 06/07/2026 06/07/2025 DTaP/Tdap/Td Vaccines (2 - Td or Tdap) [...] dementia severity (CMS/HCC) Coronary artery disease involving [place] coronary artery of [place] heart without angina pectoris Other chronic pain Mixed stress and urge urinary incontinence from Last 3 Months or Most Recently Relevant to Health Maintenance Results * High Sensitivity Troponin I (04/27/2025 8:15 AM EDT) Only the most recent of2 resultswithin the time period is included. TROPONIN I HIGH SENSITIVITY 4.6 <3.5 - 17.0 ng/L [facility] Comment:The Lal high sens itivity Troponin-I results should beused in conjunction with other diagnostic information suchas ECG, clinical observations and information, and patientsymptoms to aid in the diagnosis of DC. 04/27/2025 8:15 AM EDT 04/27/2025 8:17 AM EDT us Generic External Data Provider LAB BLOOD ORDERAB LES Final Result [facility] [address] [place] [address] [phone] * (ABNORMAL) CBC auto differential (04/27/2025 7:52 AM EDT) Only the most recent of2 resultswithin the time period is included. White Blood Count 7.3 4.8 - 10.8 X10*3/uL [facility] Red Blood Count 3.73(L) 4.20 - 5.50 X10*6/uL [facility] Hemoglobin 11.3(L) 12.0 - 16.0 g/dl [facility] Hematocrit 34.3(L) 37.0 - 47.0 % [facility] Mean Corpuscular Volume 92.0 80.0 - 98.0 fL [facility] Mean Corpuscular Hemoglobin 30.3 27.0 - 33.0 pg [facility] Mean Corpuscular HGB Conc 32.9 31.0 - 35.0 g/dl [facility] Red Cell Distribution Width 14.4 11.0 - 16.0 % [facility] Platelet Count 350 160 - 400 X10*3/uL [facility] Mean Platelet Volume 11.5 9.4 - 12.3 fL [facility] Neutrophils Percent Auto 64.7 45 - 73 % [facility] Imm Gran Pct Auto 0.3 0.0 - 0.4 % [facility] Lymphocytes Percent Auto 23.8 20 - 40 % [facility] Monocytes Percent Auto 9.4 2 - 11 % [facility] Eosinophils Percent Auto 1.4 0 - 4 % [facility] Basophils Percent Auto 0.4 0 - 2 % [facility] NRBC Pct Auto 0.0 0.0 - 0.2 /100WBC [facility] Neutrophils Absolute Auto 4.7 2.0 - 8.3 x10*3/uL [facility] Imm Gran Abs Auto 0.02 0.00 - 0.03 X10*3/uL [facility] Lymphocytes Absolute Auto 1.7 1.2 - 4.9 X10*3/uL [facility] Monocytes Absolute Auto 0.7 0.1 - 1.2 X10*3/uL [facility] Eosinophils Absolute Auto 0.1 0.0 - 0.4 X10*3/uL [facility] Basophils Absolute Auto 0.0 0.0 - 0.2 X10*3/uL [facility] NRBC Abs Auto 0.000 0.0 - 0.012 X10*3/uL [facility] 04/27/2025 7:52 AM EDT 04/27/2025 7:55 AM EDT us Generic External Data Provider LAB BLOOD ORDERAB LES Final Result Performing Organization Address City/State/[facility] Co de Phone Number [facility] [address] [place] [phone] * CT Abdomen Pelvis w/ Contrast (04/27/2025 7:52 AM EDT) Anatomical Region Laterality Modality Body, Pelvis, Abdomen Computed T omography 04/27/2025 7:52 AM EDT Narrative 04/27/2025 9:20 AM EDT [place] [address] CT Scan Report Signed Patient: Elisa Weaver MR#: [id number] : 1940 Acct:[id number] Age/Sex: 84 / F ADM Date: 04/27/25 Loc: .ED Attending Dr: Ordering Physician: Kacey La Date of Service: 04/27/25 Procedure(s): CT abdomen pelvis w IV con Accession Number(s): [id number] cc: Kacey La; Name,Stef ESTRADA Report Number: [id number]: Total DLP = 235.00 mGy-cm EXAMINATION: CT [...] 04/27/25 0917 DD/ 0752 TD/TT: 04/27/25 0909 Power System Dispatcher: Procedure Note Donotuseinterpreter, Image - 04/27/[address] [place] [address] [address] Scan Report Signed Patient: Graeme Weaver#: [id number] : 1940cct:[id number] Age/Sex: 84 / FADM Date: 04/27/25 Loc: HO.ED Attending Dr: Ordering Physician: Kacey La Date of Service: 04/27/25 Procedure(s): CT abdomen pelvis w IV con Accession Number(s): [id number] cc: Kacey La; Name,Stef ESTRADA Report Number: [id number]: Total DLP = 235.00 mGy-cm EXAMINATION: CT [...] 04/27/25 0917 DD/ 0752 TD/TT: 04/27/25 0909 Power System Dispatcher: [facility] External Provider IMG CT PROCEDURES Edited Result - Final * Magnesium (04/27/2025 7:52 AM EDT) Only the most recent of2 resultswithin the time period is included. Magnesium 2.1 1.6 - 2.6 mg/dL [facility] 04/27/2025 7:52 AM EDT 04/27/2025 7:55 AM EDT us Generic External Data Provider LAB BLOOD ORDERAB LES Final Result [facility] [address] [place] [address] [phone] * (ABNORMAL) Comprehensive Metabolic Panel (04/27/2025 7:52 AM EDT) Sodium 135 135 - 145 mmol/L [facility] Potassium 4.3 3.3 - 5.1 mmol/L [facility] Chloride 104 96 - 108 mmol/L [facility] Carbon Dioxide 26 22 - 29 mmol/L [facility] Anion Gap 9(L) 12 - 20 [facility] Urea Nitrogen (BUN) 14 9 - 16 mg/dL [facility] Creatinine, Serum 0.53 0.5 - 1.4 mg/dL [facility] Creatinine Clr Calc Pharmacy 48.1 [facility] Comment:Provided height and weight: 144.78 cm,39 kg.eGFR (calculated from the MDRD study equation) and eCrCl(calculated from the Cockcroft-Gault equation) are based ondifferent parameters and may not yield comparable results.If eCrCl result is absurd, please check patient'sheight/weight. Estimated Glomerular Filt Rate >60 [facility] Comment:Chronic Kidney Disea se: Estimated GFR < 60 mL/min/1.18n7Mlebhg Kidney Disease: Estimated GFR < 15 mL/min/1.73m2 Glucose 155(H) 60 - 115 mg/dL [facility] Calcium 9.3 8.4 - 10.2 mg/dL [facility] Bilirubin, Total 0.1 0.0 - 1.0 mg/dL [facility] Aspartate Amino Transferase 21 5 - 31 U/L [facility] Alanine Aminotransferase 11 0 - 31 U/L [facility] Total Protein 7.2 6.5 - 8.0 g/dL [facility] Albumin Level 3.8 3.5 - 5.0 g/dL [facility] Alkaline Phosphatase 94 39 - 117 U/L [facility] 04/27/2025 7:52 AM EDT 04/27/2025 7:55 AM EDT Generic External Data Provider LAB BLOOD ORDERAB LES Final Result Performing Organization Address [facility] Co de Phone Number [facility] [address] [place] [phone] * OBSX1 (03/31/2025 4:54 PM EDT) [facility] OBS1 POSITIVE NEGATIVE [facility] 03/31/2025 4:54 PM EDT 03/31/2025 5:03 PM EDT Generic External Data Provider LAB BLOOD ORDERAB LES Final Result Performing Organization Address [facility] de Phone Number [facility] [address] [place] [phone] * Type and screen (03/31/2025 3:05 PM EDT) [facility] Blood Type OP [facility] Antibody Screen NEGATIVE [facility] 03/31/2025 3:05 PM EDT 03/31/2025 3:14 PM EDT Narrative [facility] - 03/31/2025 3:51 PM EDT nono Generic External Data Provider LAB BLOOD BANK TE ST ORDERABLES Final Result Performing Organization Address [facility] de Phone Number [facility] [address] [place] [phone] * (ABNORMAL) C-reactive Protein (03/31/2025 2:54 PM EDT) [facility] C Reactive Protein 0.73(H) < or = 0.50 mg/dL [facility] 03/31/2025 2:54 PM EDT 03/31/2025 2:57 PM EDT us Generic External Data Provider LAB BLOOD ORDERAB LES Final Result Performing Organization Address [facility]/ZIP Co de Phone Number [facility] [address] [place] [phone] * Lipase (03/31/2025 2:54 PM EDT) Lipase 13 8 - 78 U/L [facility] 03/31/2025 2:54 PM EDT 03/31/2025 2:57 PM EDT us Generic External Data Provider LAB BLOOD ORDERAB LES Final Result Performing Organization Address [facility] Phone Number [facility] [address] [place] [phone] * (ABNORMAL) Hepatic Function Panel (03/31/2025 2:54 PM EDT) Bilirubin, Total 0.3 0.0 - 1.0 mg/dL [facility] Bilirubin, Direct 0.1 0.0 - 0.5 mg/dL [facility] Aspartate Amino Transferase 28 5 - 31 U/L [facility] Alanine Aminotransferase 13 0 - 31 U/L [facility] Total Protein 9.1(H) 6.5 - 8.0 g/dL [facility] Albumin Level 5.0 3.5 - 5.0 g/dL [facility] Alkaline Phosphatase 75 39 - 117 U/L [facility] 03/31/2025 2:54 PM EDT 03/31/2025 2:57 PM EDT us Generic External Data Provider LAB BLOOD ORDERAB LES Final Result Performing Organization Address [facility]/ZIP Co de Phone Number [facility] [address] [place] [phone] * (ABNORMAL) Basic Metabolic Panel (03/31/2025 2:54 PM EDT) Sodium 141 135 - 145 mmol/L [facility] Potassium 3.4 3.3 - 5.1 mmol/L [facility] Chloride 90(L) 96 - 108 mmol/L [facility] Carbon Dioxide 34(H) 22 - 29 mmol/L [facility] Anion Gap 20 12 - 20 [facility] Urea Nitrogen (BUN) 12 9 - 16 mg/dL [facility] Creatinine, Serum 0.72 0.5 - 1.4 mg/dL [facility] Creatinine Clr Calc Pharmacy 39.6 [facility] Comment:Provided height and weight: 149.86 cm,45.359 kg.eGFR (calculated from the MDRD study equation) and eCrCl(calculated from the Cockcroft-Gault equation) are based ondifferent parameters and may not yield comparable results.If eCrCl result is absurd, please check patient'sheight/weight. Estimated Glomerular Filt Rate >60 [facility] Comment:Chronic Kidney Disea se: Estimated GFR < 60 mL/min/1.66d3Bjhhbl Kidney Disease: Estimated GFR < 15 mL/min/1.73m2 Glucose 193(H) 60 - 115 mg/dL [facility] Calcium 10.7(H) 8.4 - 10.2 mg/dL [facility] 03/31/2025 2:54 PM EDT 03/31/2025 2:57 PM EDT us Generic External Data Provider LAB BLOOD ORDERAB LES Final Result [facility] [address] [place] [phone] * XR Chest 1 View (03/31/2025 1:00 PM EDT) Anatomical Region Laterality Modality Chest Radiographic Ailin ging 03/31/2025 1:00 PM EDT Narrative 03/31/2025 2:17 PM EDT [address] [address] XRay Report Signed Patient: Elisa Weaver MR#: [id number] : 1940 Acct:[id number] Age/Sex: 84 / F ADM Date: 03/31/25 Loc: HO.ED Attending Dr: Ordering Physician: Emiliano Castillo MD Date of Service: 03/31/25 Procedure(s): XR chest 1V Accession Number(s): [id number] cc: Emiliano Castillo MD; Name,Stef ESTRADA EXAMINATION: [...] Abdirashid Villarreal MD 03/31/2025 02:14 PM EDT Dictated By: Abdirashid Caldera MD Signed By: <Electronically signed by Abdirashid Shaver MD in OV> 03/31/25 1414 DD/ 1300 TD/TT: 03/31/25 1408 Power System Dispatcher: Procedure Note Donotuseinterpreter, Image - 03/31/[address] [address] XRay Report Signed Patient: Haritha WeaverR#: [id number] : 1Acct:[id number] Age/Sex: 84 / FADM Date: 03/31/25 Loc: HO.ED Attending Dr: Ordering Physician: Emiliano Castillo MD Date of Service: 03/31/25 Procedure(s): XR chest 1V Accession Number(s): [id number] cc: Emiliano Castillo MD; Name,Stef ESTRADA EXAMINATION: [...] Abdirashid Villarreal MD 03/31/2025 02:14 PM EDT Dictated By: Abdirashid Caldera MD Signed By: <Electronically signed by Abdirashid Shaver MDin OV> 03/31/25 1414 DD/ 1300 TD/TT: 03/31/25 1408 Power System Dispatcher: [facility] External Provider IMG XR PROCEDURES Final Result * (ABNORMAL) Lipid Panel, Standard (01/28/2024 11:40 AM EDT) Triglycerides 265(H) <150 mg/dL [facility] Comment:Desirable Triglyceri de: less than 150 mg/dLBorderline High Triglyceride 150-199 mg/dLHigh Triglyceride: 200-499 mg/dLVery High Triglyceride: greater than or equal to 5OO mg/dL Cholesterol 212(H) <200 mg/dL [facility] Comment:Desirable Cholestero l: less than 200 mg/dLBorderline High Cholesterol: 200-239 mg/dLHigh Cholesterol: greater than 239 mg/dL LDL Cholesterol Calculated 122(H) <100 mg/dL [facility] Comment:Desirable LDL: less than 100 mg/dLNear Optimal/Above Optimal LDL: 110- 129 mg/dLBorderline High LDL: 130-159 mg/dLHigh LDL: 160-189 mg/dLVery High LDL: greater than or equal to 190 mg/dL HDL Cholesterol 37(L) >40 mg/dL [facility] Comment:Desirable HDL: great er than 40 mg/dL Note: This HDL assay may give artificially low results in patients with liver disease. Blood Venous blood specimen / Unknown 01/28/2024 11:40 AM EDT 01/28/2024 1:30 PM EDT us Stef Greer MD LAB BLOOD ORDERABLES Final Resul t [facility] [address] [place] [address] [phone] from Last 3 Months or Most Recently Relevant to Health Maintenance Insurance [facility] RETIREMENT OPTIONS (HMO D-SNP) [place] [id number] DENTAL - [facility] Care Teams Shoes Hand Sewer Relationship Specialty Start Date End Date Name, MD Stef [address] [place] [phone] PCP - General Family Medicine 01/28/16 [facility] 05/16/25
--- OUTSIDE RECORDS SUMMARY | 2025-06-29 13:10 | XMS_ITS | Encounter Summary ---
Author Organization [employer] Address [address] [facility] [address]t [place] [address] Care Team Providers Care Quality Control Director Name Role Phone Name, Stef ESTRADA Primary Care Provider [phone] Encounter Details Date Type Department Care Team ([facility] st Contact Info) Description 11/12/2022 Telephone [facility] [address] [place] [address] Name, MD Stef [address] [place] [address] Social History Tobacco Use Types Packs/Day Years [...] as of this encounter Plan of Treatment Not on file documented as of this encounter Visit Diagnoses Not on filedocumented in this encounter Additional Health Concerns Assessment Noted Time PHQ-9 Depression Total Score: 0 09/22/20 10:00 AM EST documented as of this encounter Care Teams Quality Control Director Relationship Specialty Start Date End Date Name, MD Stef [address] [facility] [place] [address] PCP - General Family Medicine 01/28/16 Yuliya ALFRED 07/27/24 05/21/25 [facility] 05/16/25 documented as of this encounter
== END 2025-06-29 12:11 | disposition home or self-care (01) ==
LOC: HO.HGI 10:27
PROVIDERS: Visit Provider Internal Medicine Gastroenterology
DX: R11.2 Nausea with vomiting, unspecified (principal); K25.9 Gastric ulcer, unspecified as acute or chronic, without hemorrhage or perforation; K29.70 Gastritis, unspecified, without bleeding; K22.10 Ulcer of esophagus without bleeding; K59.09 Other constipation
CPT/HCPCS: 99213

== ENCOUNTER 2025-08-04 20:15 | Inpatient (IN) | payer OTHER, SELFPAY ==
[2025-08-04] VITALS (7 sets, daily range): BP systolic 80–128; BP diastolic 50–66; PULSE 93–115; RESP 14–20; TEMP 36.7–37.1; O2SAT 96–100; BMI 17.4
--- NOTE | ~2025-08-04 | CT_ITS ---
CLINICAL HISTORY: AMS, hypotension CT chest with contrast Comparison: Chest CT from 07/22/2024 report is reviewed. Actual images are not available at this time. Findings: No aortic dissection of the tortuous thoracic aorta. 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 Calcified and noncalcified plaque involving the imaged aorta and its branches. Coronary artery calcifications noted. Mild cardiomegaly. [id number] pericardial effusion. Small mediastinal lymph nodes are nonspecific and may be reactive. Wall thickening of the imaged esophagus including mid to lower esophagus (29 of series 5) is nonspecific by CT. Differential considerations include esophagitis. Other mural pathology not excluded by CT. Imaged rib deformities appear old/chronic. Please refer to separate report for imaged abdomen and pelvis. Degenerative changes include imaged shoulders and imaged spine. Mild vertebral height losses including T4 appear old/chronic. IMPRESSION: 1. Mild bibasilar atelectasis/pneumonitis, left worse than right. 2. Nonspecific wall thickening of the imaged esophagus This document has been electronically signed by: Andi Jerry MD on 08/05/2025 00:06:16
--- NOTE | ~2025-08-04 | XR_ITS ---
EXAMINATION: XR ABDOMEN 1 VIEW (KUB) HISTORY: constipation COMPARISON: Comparison is made with the prior examination dated 07/21/2018. FINDINGS: Two supine views of the abdomen are submitted. The bowel gas pattern is unremarkable, without evidence of mechanical obstruction. There is a large amount of stool throughout the colon. No abnormal calcifications are identified. There are no abnormal soft tissue masses. There is narrowing of the hip joints. XR/XR KUB IMPRESSION: Large amount of stool throughout the colon. Electronically signed by: Darrell Paulino MD 08/07/2025 02:21 PM DESIRAE
--- NOTE | ~2025-08-04 | CT_ITS ---
CLINICAL HISTORY: abd pain, hypotensive CT abdomen and pelvis with contrast Comparison: CT of the abdomen and pelvis from 04/27/2025 Findings: Please refer to chest CT report for bibasilar pulmonary opacities of the abnormal wall thickening of the imaged esophagus. Cardiomegaly noted with small pericardial effusion. Cholelithiasis redemonstrated. Mild fat deposition noted in the liver. The adrenal glands are normal. Mild volume loss of the pancreas noted. The spleen is nonenlarged. Nonobstructing nephrolithiasis of the left kidney measure up to 3 mm. No hydronephrosis. Small mesenteric and retroperitoneal lymph nodes are nonspecific and likely reactive. No small bowel obstruction. Severe stool burden is noted imaged appendix or appendiceal stump is nondilated (43 of series 15). Calcified and noncalcified plaque redemonstrated in the aorta and its branches. Wall thickening of the urinary bladder is nonspecific. Uterus deviates to the right. No adnexal soft tissue mass by CT. Osseous pelvis deformities appear old/chronic. Low bone mineralization suggested. Degenerative changes include the hips, pubic symphysis, and SI joints. Degenerative changes also present in the imaged spine with multifocal facet arthropathy. Transitional vertebral anatomy with lumbarization of the S1. No significant change in moderate height loss of the L2 compression fracture by this numbering system. IMPRESSION: 1. Severe stool burden. No small bowel obstruction. 2. Wall thickening of the urinary bladder is nonspecific. 3. Cholelithiasis redemonstrated. This document has been electronically signed by: Andi Jerry MD on 08/05/2025 00:01:39
--- NOTE | 2025-08-04 20:33 | ECG_ITS ---
Test Reason : TACHYCARDIA Blood Pressure : */* mmHG Vent. Rate : 113 BPM Atrial Rate : 113 BPM P-R Int : 152 ms QRS Dur : 84 ms QT Int : 354 ms P-R-T Axes : 64 40 71 degrees QTcB Int : 485 ms Sinus tachycardia Minimal voltage criteria for LVH, may be normal variant ( [place] product ) Borderline ECG When compared with ECG of 08-May-2025 16:28, Vent. rate has increased by 37 bpm Referred By: Generic ED Physician Electronically Signed By: ABBY GRIMM
--- OUTSIDE RECORDS SUMMARY | 2025-08-04 20:41 | XMS_ITS | Clinical Summary ---
Author Organization [employer] Address [address] [facility] 7t [place] [address] Care Team Providers Care Record Press Supervisor Name Role Phone Name, Stef ESTRADA Primary Care Provider [phone] Allergies Active Allergy Reactions Criticality Noted Date [...] DAILY 510 g 1 06/07/20 24 Active amitriptyline (Elavil) 10 MG tablet TAKE 1 TABLET BY MOUTH AT BEDTIME 90 tablet 1 11/22/19 25 Active Multiple Vitamin (Multivitamin) tablet Take 1 tablet by mouth in the morning. 12/06/19 25 Active Calcium Carb-Cholecalcifer ol (Oyster Shell Calcium + D3) 500-10 MG-MCG tabletIndications: Osteoporosis, unspecified osteoporosis type, unspecified pathological fracture presence Take 1 tablet by mouth 2 times daily. TAKE 1 TABLET BY MOUTH TWICE DAILY IN THE MORNING AND IN THE EVENING 60 tablet 11 01/14/20 25 Active acetaminophen (Tylenol) 500 MG tabletIndications: Primary osteoarthritis involving multiple joints take 1 tablet (500MG) by oral route every 6 hours as needed 90 tablet 11 03/07/20 25 Active atorvastatin (Lipitor) 40 MG tablet TAKE 1 TABLET BY MOUTH EVERY MORNING 90 tablet 1 03/21/20 25 Active sertraline (Zoloft) 25 MG tabletIndications: Moderate dementia without behavioral disturbance, psychotic disturbance, mood disturbance, or anxiety, unspecified dementia type ([facility]) ([facility]) TAKE 1 TABLET BY MOUTH EVERY MORNING 30 tablet 2 04/20/20 25 Active sucralfate (Carafate) 1 GM/10ML suspension Take 1 g by mouth before breakfast, before lunch, before evening meal, and at bedtime. 01/26/20 25 Active omeprazole (PriLOSEC) [address] capsule Take 1 capsule (40 mg) by mouth before breakfast. Do not crush or chew. 90 capsule 05/31/20 25 Active mirtazapine (Remeron) 30 MG tabletIndications: Moderate dementia without behavioral disturbance, psychotic disturbance, mood disturbance, or anxiety, unspecified dementia type ([facility]) ([facility]) Take 1 tablet (30 mg) by mouth at bedtime. 90 tablet 07/03/20 25 Active metoprolol succinate XL (Toprol-XL) 25 MG 24 hr tablet TAKE 1/2 TABLET BY MOUTH EVERY MORNING 15 tablet 2 07/24/20 25 Active metoprolol succinate XL (Toprol-XL) 25 MG 24 hr tablet Take 0.5 tablets (12.5 mg) by mouth Once per day. Do not crush or chew. 15 tablet 2 10/26/19 25 025 Discontinued melatonin 5 MG tablet Take 1 tablet (5 mg) by mouth at bedtime. Take 1 tablet by mouth at bedtime. 30 tablet 11 06/07/20 25 025 Active Problems Problem Noted Date Diagnosed Date Acute dehydration 04/06/2025 Acute hypokalemia 04/06/2025 Acute upper GI bleed 04/06/2025 Anemia 04/06/2025 Ellie glabrata infection 04/06/2025 Cholecystitis 04/06/2025 Clavicle fracture 04/06/2025 Compression fracture of L2 (CMS/HCC) 04/06/2025 Conjunctivitis 04/06/2025 Dysphagia 04/06/2025 Ecchymosis 04/06/2025 [...] pain 09/13/2022 Nicotine dependence 09/13/2022 Cerebrovascular accident ([facility]) 06/19/2021 Chronic tension-type headache 02/11/2018 Migraine 08/31/2017 Rib pain 07/27/2017 Mixed stress and urge urinary incontinence 09/05 Dementia ([facility]/HCC) 01/28/2016 Illiteracy 01/28/2016 Knee pain 01/28/2016 Recurrent [...] Encounters Date Type Department Care Team Description 07/26/2025 Telephone [facility] [address] [facility] [place] [address] Flakita Aguilera [place] dec recalls 07/23/2025 Refill [facility] [address] [facility] [place] [address] NameStef MD 06/30/2025 Refill [facility] [address] [facility] [place] [address] Name, MD Stef Moderate dementia without behavioral disturbance, psychotic disturbance, mood disturbance, or anxiety, unspecified dementia type ([facility]) 06/07/2025 4:00 PM EDT Office Visit [facility] [address] [facility] [phone] Stef Greer MD Gastroesophageal reflux disease with esophagitis and hemorrhage (Primary Dx); Dementia associated with other underlying disease, with anxiety, unspecified dementia severity ([facility]) 06/07/2025 Travel 05/31/2025 Refill [facility] [address] [place] [address] Jenna Mixon, PharmD 05/22/2025 Patient Outreach [facility] [address] [place], [place] [phone] Stef Greer MD Transition Of Care (Tcm) (HDF scheduled.) 05/18/2025 Patient Outreach [address] [address] Stef Greer MD Transition Of Care (Tcm) (HDF- Unscheduled - unable to communicate with Deb at S.) 05/18/[address] [address] Stef Greer MD Hospital Follow-up; No Show (No show for HDF ) 05/11/[address] [address] Flakita Aguilera [place] july recalls 05/09/2025 Patient Outreach [address] [address] Stef Greer MD Transition Of Care (Tcm) (HDF- Unscheduled SECOND CALL - MAILBOX FULL) 05/05/2025 Patient Outreach [address] [address] Stef Greer MD Transition Of Care (Tcm) (HDF- Unscheduled -unable to LVM, Mailbox is full) 05/05/[address] [address] Stef Greer MD Hospital Follow-up from Last 3 Months Immunizations Immunization Administration [...] Care Team (Late st Contact Info) Description 10/12/2025 10:30 AM EST Office Visit [facility] [address] [place] [address] Name, MD Stef [address] [place] [phone] Health Maintenance Due Date Last Done Comments [...] Procedure Name Priority Date/Time Associated Diagnosis Comments LIPID PANEL, STANDARD Routine 01/28/2024 11:40 AM EDT Dementia associated with other underlying disease, with anxiety, unspecified dementia severity (CMS/HCC) Coronary artery disease involving grand traverse coronary artery of grand traverse heart without angina pectoris Other chronic pain Mixed stress and urge urinary incontinence from Last 3 Months or Most Recently Relevant to Health Maintenance Results * (ABNORMAL) Lipid Panel, Standard (01/28/2024 11:40 AM EDT) Triglycerides 265(H) <150 mg/dL [facility] Comment:Desirable Triglyceri de: less than 150 mg/dLBorderline High Triglyceride 150-199 mg/dLHigh Triglyceride: 200-499 mg/dLVery High Triglyceride: greater than or equal to 5OO mg/dL Cholesterol 212(H) <200 mg/dL [facility] Comment:Desirable Cholestero l: less than 200 mg/dLBorderline High Cholesterol: 200-239 mg/dLHigh Cholesterol: greater than 239 mg/dL LDL Cholesterol Calculated 122(H) <100 mg/dL [facility] Comment:Desirable LDL: less than 100 mg/dLNear Optimal/Above Optimal LDL: 110- 129 mg/dLBorderline High LDL: 130-159 mg/dLHigh LDL: 160-189 mg/dLVery High LDL: greater than or equal to 190 mg/dL HDL Cholesterol 37(L) >40 mg/dL [facility] Comment:Desirable HDL: great er than 40 mg/dL Note: This HDL assay may give artificially low results in patients with liver disease. Blood Venous blood specimen / Unknown 01/28/2024 11:40 AM EDT 01/28/2024 1:30 PM EDT us Stef Name LAB BLOOD ORDERABLES Final Resul t [facility] [address] [place] [address] [phone] from Last 3 Months or Most Recently Relevant to Health Maintenance Insurance [facility] [employer] (HMO D-SNP) [place] [id number] * Guarantor: Elisa Weaver Account Type Relation to Patient Date of Phone Billing Address Personal/Family Self [address] [facility] [address] [place] [address] D[facility]AL - [facility] Care Teams Record Press Supervisor Relationship Specialty Start Date End Date Name, MD Stef [address] [place] [address] PCP - General Family Medicine 01/28/16 [facility] 05/16/25
--- OUTSIDE RECORDS SUMMARY | 2025-08-04 20:41 | XMS_ITS | Encounter Summary ---
Author Organization [employer] Address [address] [facility] 7t [place] [address] Care Team Providers Care Sow Farm Barn Technician Name Role Phone Name, Stef ESTRADA Primary Care Provider [phone] Encounter Details Date Type Department Care Team (Late st Contact Info) Description 11/12/2022 Telephone [facility] [address] [place] [address] [phone] NameStef MD [address] [place] [address] [phone] Social History Tobacco Use Types Packs/Day Years [...] Description 10/12/2025 10:30 AM EST Office Visit [address] [address] Name, MD Stef [address] [place] [address] [phone] documented as of this encounter Visit Diagnoses Not on filedocumented in this encounter Additional Health Concerns Assessment Noted Time PHQ-9 Depression Total Score: 0 09/22/20 22 10:00 AM EST documented as of this encounter Care Teams Sow Farm Barn Technician Relationship Specialty Start Date End Date Name, MD Stef [address] [place] [address] PCP - General Family Medicine 01/28/16 [facility] 07/27/24 05/21/25 [facility] 05/16/25 documented as of this encounter
--- OUTSIDE RECORDS SUMMARY | 2025-08-04 20:41 | XMS_ITS | Encounter Summary ---
Author Organization [employer] Address [address] [facility] 7t [place] [address] Care Team Providers Care Concrete Fence Builder Name Role Phone Name, Stef ESTRADA Primary Care Provider [phone] Reason for Visit * Reason Onset Date Comments Hospital Follow-up 05/05/2025 Encounter Details Date Type Department Care Team ([facility] st Contact Info) Description 05/05/2025 Telephone [facility] [address] [place], [place] [phone] Name, MD Stef [address] [place] [address] Hospital Follow-up Social History Tobacco Use Types [...] EDT Tc from Nena Becerra from [facility] requesting a HDF appt. Hospital: [facility] Date of admission: 04/27 Discharge date: 04/30 Diagnosed: Abdominal pain and upper GI bleed Contact Nena at [phone] documented in this encounter Plan of Treatment Upcoming Encounters Date Type Department Care Team (Late st Contact Info) Description 10/12/2025 10:30 AM EST Office Visit [facility] [address] [place] [address] Name, MD Stef [address] [place] [address] documented as of this encounter Visit Diagnoses Not on filedocumented in this encounter Additional Health Concerns Assessment Noted Time PHQ-9 Depression Total Score: 0 03/07/20 1:14 PM EDT documented as of this encounter Care Teams Concrete Fence Builder Relationship Specialty Start Date End Date NameStef MD [address] [place] [address] PCP - General Family Medicine 01/28/16 [facility] 07/27/24 05/21/25 [facility] 05/16/25 documented as of this encounter
--- OUTSIDE RECORDS SUMMARY | 2025-08-04 20:41 | XMS_ITS | Data Portability ---
Author Organization Collections [facility], [facility] [employer] [facility] Address [address] [place] [address] Care Team Providers Care Office Nurse Practitioner Name Role Phone Unavailable Referring Provider [facility] Referring Provider [phone] Assessment Encounter Date Assessment Date Assessment LastModified by Organization Details LastModified Time 04/22/2022 04/22/2022 I have reviewed and agree with the assessment and plan as documented by the portfolio analyst. I provided real-time medical direction for this [...] Diagnosis SNOMED-CT Code Diagnosis ICD10 Code Diagnosis IMO Codes Diagnosis Note 2787 Ralf Valladares MD Main - [address] [address] 04/22/2022 14:09:54 06/10/2022 12:23:06 Pain of wrist region [id number] M25.531 Health Concerns Section Related Observation LastModified by Organization Detai ls LastModified Time None Recorded Concern Status LastModified by Organization Details LastModified Time None Recorded Advance Directives Directive None Recorded Payers Insurance Date Sequence Insurance Name Policy Number Policy Hinson Covered Member ID Hinson Member ID Guarantor Name 11/29/2023 1 [facility] [employer] - DOS PRIOR TO 2023 - DUAL ELIGIBLE (MEDICARE REPLACEMENT/ADV ANTAGE - HMO) Elisa Weaver [id number] Elisa Weaver 11/29/2023 1 [facility] [employer] - DOS ON OR AFTER 2023 - DUAL ELIGIBLE - [employer] AND ONE CARE (MEDICARE REPLACEMENT/ADV ANTAGE - HMO) Elisa Weaver [id number] Elisa Jaimego Notes Date Note Type Note [...] .................. ............... [facility] Nursing Assessment: Comments: Per FLANGING MACHINE OPERATOR, if possible please avoid Bactrim as treatment, as member has had an BRIANNE in the past with use of this abx .................. .................. .................. .................. .................. .................. .................. ............... Para Operator Note: eval for pain after right [...] family members in attendance care for pt. [facility] ordered 15 mg toradol for pain, given with some relief. elevated arm on pillow, put ice pack on wrist area with some relief. [facility] to call and try and get an earlier appointment for ortho .................. .................. .................. .................. .................. .................. .................. ............... Disposition: Fulfilled Ralf Valladares MD [address] [facility], [place], [address], [facility] 04/22/2022 19:27:13 OBGyn Episode No OBEpisode recorded.
--- OUTSIDE RECORDS SUMMARY | 2025-08-04 20:41 | XMS_ITS | Encounter Summary ---
Author Organization [employer] Address [address] [facility] 7t [place] [address] Care Team Providers Care On Call Pharmacy Technician Name Role Phone Name, Stef ESTRADA Primary Care Provider [phone] Reason for Visit * Reason Onset Date Comments Paperwork/Forms 04/18/2024 Encounter Details Date Type Department Care Team ([facility] Contact Info) Description 04/18/2024 Telephone [facility] [address] [place], [place] [phone] Name, MD Stef [address] [place] [address] Paperwork/Forms Social History Tobacco Use Types Packs/Day [...] PM EDT Tc from Emily, nurse at [facility] requesting paperwork to be sign as soon as possible in order to them be able to admit pt into services. Please contact Emily at [phone] if any question. documented in this encounter Plan of Treatment Upcoming Encounters Date Type Department Care Team (Late st Contact Info) Description 10/12/2025 10:30 AM EST Office Visit [facility] [address] [place] [address] Name, MD Stef [address] [place] [address] documented as of this encounter Visit Diagnoses Not on filedocumented in this encounter Additional Health Concerns Assessment Noted Time PHQ-9 Depression Total Score: 0 01/28/20 10:49 AM EDT documented as of this encounter Care Teams On Call Pharmacy Technician Relationship Specialty Start Date End Date Name, MD Stef [address] [place] [address] PCP - General Family Medicine [facility] 05/21/25 [facility] 05/16/25 documented as of this encounter
--- OUTSIDE RECORDS SUMMARY | 2025-08-04 20:41 | XMS_ITS | Encounter Summary ---
Author Organization [employer] Address [address] [facility] 7t [place] [address] Care Team Providers Care Aba Therapist Name Role Phone Name, Stef ESTRADA Primary Care Provider [phone] Reason for Visit * Reason Onset Date Comments Hospital Follow-up 10/28/2024 Encounter Details Date Type Department Care Team ([facility] st Contact Info) Description 10/28/[address] [facility] [address] [place], [place] [phone] Name, MD Stef [address] [place] [address] Hospital Follow-up Social History Tobacco Use Types [...] from pt requesting a HDF appt. Hospital: [facility] Date of admission: 10/18 Discharge date: 10/20 Diagnosed: Gastritis and UTI Huma states that Pt son told her that they should hold med clopidogrel (Plavix) 75 MG tablet Due to pt having bad Gastritis. Huma said that she looked at the Notes from the Hospital and there is nothing about holding them on the Notes. *Send message to [facility] Clinical Care Coordinators Contact WARDROBE CONSULTANT to Schedule pt [phone] documented in this encounter Plan of Treatment Upcoming Encounters Date Type Department Care Team (Late st Contact Info) Description 10/12/2025 10:30 AM EST Office Visit [facility] [address] [place] [address] Name, MD Stef [address] [place] [address] documented as of this encounter Visit Diagnoses Not on filedocumented in this encounter Additional Health Concerns Assessment Noted Time PHQ-9 Depression Total Score: 0 01/28/20 10:49 AM EDT documented as of this encounter Care Teams Aba Therapist Relationship Specialty Start Date End Date NameStef MD [address] [place] [address] PCP - General Family Medicine 01/28/16 [facility] 07/27/24 05/21/25 [facility] 05/16/25 documented as of this encounter
--- NOTE | 2025-08-04 20:43 | ED_ITS ---
HPI - General Adult General Chief complaint: General Medical Stated complaint: COFFEE GROUND EMESIS, PALE Time Seen by Provider: 08/04/25 20:43 Source: patient, EMS and finance advisor (all interactions with this patient were facilitated with an [facility] iron plastic bullet maker) Mode of arrival: EMS Limitations: language barrier (all interactions with this patient were facilitated with an [facility] iron plastic bullet maker) and altered mental status (patient is confused) History of Present Illness ED Provider: Kacey La PA-C HPI narrative: Patient is an 84 year old assigned female at with a history of CVA, dementia, gastritis, gastric ulcers, erosive esophagitis, and NSTEMI presenting to the emergency department today with after vomiting coffee ground type vomit. Patient states that her stomach hurts but cannot elaborate. Patient's family is not at the bed side. EMS states that the patient's family on scene stated that the patient had an episode of vomiting coffee ground type vomit and is acting more confused than her normally demented baseline. Related Data Home Medications ?Medication ?Instructions ?Recorded ?Confirmed mirtazapine 30 mg tablet 30 mg PO BEDTIME 06/27/21 sertraline 25 mg tablet 1 tab PO DAILY 06/27/2106/06 amitriptyline 10 mg tablet 10 mg PO BEDTIME 01/22/25 0 06/29/25 atorvastatin 40 mg tablet 40 mg PO DAILY 01/22/2506/06 multivitamin 1 tab PO DAILY 01/22/2506/06 calcium 500 mg (as 1 tab PO BID 04/27/25 carbonate)-vitamin D3 10 mcg (400 unit) tablet (Oyster Shell Calcium-Vitamin D3) clopidogrel 75 mg tablet 75 mg PO DAILY 05/08/2506/06 acetaminophen 500 mg tablet 500 mg PO Q6H PRN Pain 02/2606/29/25 pantoprazole 40 mg tablet,delayed 40 mg PO BID@0630,16 30 05/09/25 06/29/25 release food supplemt, lactose-reduced ea PO 06/01/25 06/29/25 0.04 gram-1 kcal/mL oral liquid (Boost) Previous Rx's ?Medication ?Instructions ?Recorded melatonin 5 mg capsule 5 mg PO BEDTIME PRN sleep #3 0 caps 03/31/25 bisacodyl 10 mg/30 mL enema (Fleet 10 mg (30 mL) WA DA REESE PRN 06/01/25 Bisacodyl) constipation 2 days #37 mL polyethylene glycol 3350 17 17 g PO BID 30 days #1,020 grams 06/01/25 gram/dose oral powder (Miralax) sennosides 8.6 mg-docusate sodium 2 tab-cap (2 x 8.6-5 0 mg) PO 06/01/25 50 mg tablet (Laxative Stool BEDTIME 30 days #60 tabs Softener With Senna) Allergies Allergy/AdvReac Type Severity Reaction Status Date / Time No Known Allergies (NO KNOWN Allergy Unknown UNKNOWN Verified 08/04/25 20:32 ALLERGIES) Review of Systems 2 Constitutional: Constitutional: Reports as per HPI Eyes: Eyes: Reports as per HPI ENT: Reports as per HPI Cardiovascular: Cardiovascular: Reports as per HPI Respiratory: Respiratory: Reports as per HPI Gastrointestinal: Gastrointestinal: Reports as per HPI Genitourinary: Genitourinary: Reports as per HPI Musculoskeletal: Musculoskeletal: Reports as per HPI Integumentary/Breasts: Skin/Breast: Reports as per HPI Neurologic: Reports as per HPI Psychiatric: Psychiatric: Reports as per HPI Endocrine: Endocrine: Reports as per HPI Hematologic/Lymphatic: Hematologic/Lymphatic: Reports as per HPI Allergic/Immunologic: Allergic/Immunologic: Reports as per HPI PMF Past Medical History Attestation statement: The following information was validated with the patient. Source: old records reviewed and nursing notes reviewed Medical History Systolic murmur Emphysematous cystitis Anemia Cholecystitis Esophagitis Weight loss Candidiasis, esophageal Nausea & vomiting Gallstones Abnormal nuclear stress test HLD (hyperlipidemia) HTN (hypertension) CVA, old, disturbances of vision (~09/2019) NSTEMI (non-ST elevated myocardial infarction) Dementia Coronary artery disease Surgical History Previous section H/O eye surgery History of esophagogastroduodenoscopy (EGD) Family History Family History Father No problems noted. Mother No problems noted. Social History Social History Household Members: Children Housing: Apartment Are you a primary child care attendant to a significant other at home: No Do you presently have visiting nurse or other home services: No Alcohol intake: never Comment: 1:1 sitter Patient Tobacco Use Status: Former Tobacco user Tobacco use type: Smokeless Tobacco Years Smoked: Chews tobacco Smoked in Last 30 Days: No e-Cigarette/Vaping Use: Never Used Second Hand Smoke Exposure: No Use of substances other than those prescribed or required for medical reasons: No Advance Directives: Yes Advance Directives on File: Yes Advance Directives Date on File: 09/02/22 Do you have a plan to hurt others: No Plan Nutrition Risks: Poor intake 0-25% >4 days service: No Current occupational status: retired and disabled 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 Physical Exam ED Vital Signs: Vital Signs - 24 hr 08/04/25 20:22 08/04/25 20:29 08/04/25 21:20 Temperature 98.7 F 98.1 F Pulse Rate 104 H 106 H 114 H Respiratory Rate 17 18 20 Blood Pressure 118/66 87/58 L 83/52 L Pulse Oximetry 97 100 Oxygen Delivery Method Room Air Room Air 08/04/25 21:38 08/04/25 22:23 08/04/25 23:03 Temperature 98.2 F Pulse Rate 115 H 103 H 93 Respiratory Rate 20 17 14 Blood Pressure 81/57 L 118/66 109/61 Pulse Oximetry 96 96 Oxygen Delivery Method Room Air Room Air 08/04/25 23:52 08/05/25 00:07 08/05/25 00:22 Temperature 98.4 F 98.4 F 98.4 F Pulse Rate 96 93 91 Respiratory Rate 17 18 17 Blood Pressure 128/65 121/68 117/65 Pulse Oximetry 98 97 97 Oxygen Delivery Method Room Air Room Air Room Air 08/05/25 00:32 08/05/25 00:48 Temperature 98.4 F 98.2 F Pulse Rate 91 87 Respiratory Rate 17 16 Blood Pressure 117/65 111/66 Pulse Oximetry Oxygen Delivery Method BMI result Body Mass Index 17.4 Const General: cooperative, no acute distress, alert and awake Nutritional Appearance: well nourished Orientation/consciousness: oriented to person HENMI Head: Yes normal to inspection and Yes atraumatic Ears: hearing grossly normal bilaterally and external ears normal General nose exam: Normal external nose present, no nasal discharge noted and no epistaxis Face and sinus: Yes normal facial exam, No abrasion and No laceration Mouth: Normal oral and palatal mucosa present, no drooling, no muffled voice and other (evidence of hematemesis - coffee ground type vomitus present) Eyes General: appearance normal, both eyes and all related structures Periorbital: periorbital findings normal Eyelids: Yes eyelids normal Conjunctivae: conjunctivae normal Pupils: Equal, round and reactive pupils present EOM: EOMs intact bilaterally Neck Neck: Yes normal visual inspection and Yes full ROM Resp Effort & Inspection: normal respiratory effort and able to speak in complete sentences Cardio Rate: tachycardic Rhythm: regular rhythm Neuro Other: confused at baseline General: oriented to person, moves all extremities and CN's II-XI intact bilaterally Cranial nerves: Yes Equal, round and reactive pupils present Extrem General: Yes normal to inspection, Yes full ROM and Yes capillary refill normal Medications Administered Generic Name Dose Route Start Last Admin Trade Name Freq PRN Reason Stop Dose Admin Lactated Ringer's 1,000 mls @ 125 mls/hr 08/05/25 02:00 08/05/25 02:16 Lr IVCONT 125 mls/hr .Q8H TAL Administration Insulin Human Lispro 0 unit 08/05/25 06:00 08/05/25 05:50 Insulin Lispro 100 Unit/Ml 3 Ml Vial SUBCUT Not Given Q6H [facility] Protocol Discontinued Medications Generic Name Dose Route Start Last Admin Trade Name Freq PRN Reason Stop Dose Admin Ceftriaxone Sodium 1 gm/ 50 mls @ 100 mls/hr 08/04/25 21:52 08/04/25 22:50 Sodium Chloride IV 08/04/25 22:21 Infused ONCE ONE Infusion Lactated Ringer's 1,215 mls @ 1,215 mls/hr 08/04/25 21:52 08/05/25 02:15 Lr 30 ml/kg infuse over 1 hr (1215 ml) 08/04/25 22:51 Infused IV Infusion .Q1H ONE Metronidazole 500 mg in 100 mls @ 100 mls/hr 08/05/25 00:15 08/05/25 01:42 Flagyl IV 08/05/25 01:14 Infused ONCE ONE Infusion Iohexol 85 ml 08/04/25 22:59 08/04/25 23:03 Iohexol 350 Mg/Ml 100 Ml Infus..Btl IV 08/04/25 23:00 85 ml ONCE ONE Administration Pantoprazole Sodium 40 mg 08/04/25 21:00 08/04/25 21:15 Pantoprazole Sodium 40 Mg/10 Ml Vial IVPUSH 08/04/25 21:01 40 mg ONCE ONE Administration Pantoprazole Sodium 40 mg 08/05/25 01:55 08/05/25 02:15 Pantoprazole Sodium 40 Mg/10 Ml Vial IVPUSH 08/05/25 01:56 40 mg ONCE STA Administration Procedures Procedure Narrative Procedure Narrative: Ultrasound-guided IV 20 gauge 1-3/4 inch IV placed in left upper extremity, and 20 gauge 1.16 in IV placed in right upper extremity, both flushes well both secured with Tegaderm, adequate blood return. Patient required 2 points of access given GI bleeding and need for transfusion. Performed by Dahlia Doss PA-C Medical Decision Making Medical Decision Making MDM Narrative: 84 year old female hx of dementia, gastritis, gastric ulcers, erosive esophagitis, CVA, NSTEMI presenting to the emergency department after an episode of coffee ground vomiting at home. Patient's physical exam showed a confused individual with tachycardia and hypotension. Patient's mouth had evidence of dried hemataemesis. WBC count of 15.5, sodium of 133, BUN 60, glucose 364, lactic of 5.6, AST of 33, Trop 97.5. I was immediately concerned of a GI bleed in this patient and gave 1 unit of emergency released blood and contacted the GI team who agreed with transfusing 1 unit of blood and recommended IV protonix + imaging. Patient's hemoglobin and hct were normal - making the patient's hypotension from a GI bleed less likely. Differential broadened to other causes for hypotension including sepsis (@2152). Patient was given IV ceftriaxone. CT abd/pelvis showed severe stool burden with no SBO + wall thickening of urinary bladder. Chest CT showed evidence of possible pneumonitis vs. atelectasis and wall thickening of the esophagus. Patient's urine is pending. Patient was given 30ml/kg of LR bolus and her pressures normalized. I spoke with the hospitalist, Dr. Poncho Peñaloza, who requested a repeat lactic acid before accepting the patient for admission. Repeat lactic acid was 4.4. Patient then accepted the patient for admission. Patient's clinical presentation is most consistent with acute upper GI bleeding with possible urosepsis and pneumonititis vs. pneumonia. Differential Diagnosis Differential Diagnoses: The differential diagnosis associated with the presentation includes GI bleeding Hematemesis Hypotension Lactic acidosis Urosepsis Pneumonia Pneumonitis Admission/Observation Consideration of admission/observation: Escalation of care including admission/observation considered Patient admitted as noted in the MDM Rationale portion of this note. Consult Healthcare Provider Management of the patient was discussed with: Hospitalist (agreed to admission as noted in the MDM Rationale portion of this note. ) and Senior Data Developer (consulted with the GI team as noted in the MDM Rationale portion of this note. ) Lab Data [facility] Lab Attestation statement: I reviewed the patient's lab results. My interpretation of these results are in the MDM Rationale portion of this note. 08/05/25 04:49 08/05/25 04:49 Labs: Lab Results 08/04/25 08/04/25 08/04/25 Range/Units 21:06 21:09 22:17 WBC 15.5 H (4.8-10.8) X10*3/uL RBC 4.88 D (4.20-5.50) X10*6/uL Hgb 15.5 D (12.0-16.0) g/dl Hct 46.9 D (37.0-47.0) % MCV 96.1 (80.0-98.0) fL MCH 31.8 (27.0-33.0) pg MCHC 33.0 (31.0-35.0) g/dl RDW 15.9 (11.0-16.0) % Plt Count 303 D (160-400) X10*3/uL MPV 13.2 H (9.4-12.3) fL Immature Gran % (Auto) 0.5 H (0.0-0.4) % Neut % (Auto) 82.9 H (45-73) % Lymph % (Auto) 9.2 L (20-40) % [place] % (Auto) 6.2 (2-11) % Eos % (Auto) 0.9 (0-4) % Baso % (Auto) 0.3 (0-2) % Lymph # (Auto) 1.4 (1.2-4.9) X10*3/uL [place] # (Auto) 1.0 (0.1-1.2) X10*3/uL Eos # (Auto) 0.1 (0.0-0.4) X10*3/uL Baso # (Auto) 0.0 (0.0-0.2) X10*3/uL Abs Immat Gran (auto) 0.07 H (0.00-0.03) X10*3/uL Absolute Neuts (auto) 12.8 H (2.0-8.3) x10*3/uL Absolute Nucleated RBC 0.000 (0.0-0.012) X10*3/uL Nucleated RBC % (auto) 0.0 (0.0-0.2) /100WBC Smear Tech's Comments VERIFIED Hold Blue Top SEE NOTE Sodium 133 L (135-145) mmol/L Potassium 4.7 D (3.3-5.1) mmol/L Chloride 97 (96-108) mmol/L Carbon Dioxide 21 L (22-29) mmol/L Anion Gap 20 (12-20) BUN 60 H (9-16) mg/dL Creatinine 1.12 (0.5-1.4) mg/dL Estim Creat Clear Calc 23.9 Estimated GFR 46 Random Glucose 364 H* (60-115) mg/dL Lactic Acid 5.6 H* (0.5-2.0) mmol/L Lactic Acid F/U @ 2Hr (0.5-2.0) mmol/L Calcium 9.8 (8.4-10.2) mg/dL Magnesium 2.5 (1.6-2.6) mg/dL Total Bilirubin 0.3 (0.0-1.0) mg/dL AST 33 H (5-31) U/L ALT 18 (0-31) U/L Alkaline Phosphatase 76 (39-117) U/L Troponin I High Sens 97.5 H* D (<3.5-17.0) ng/L Total Protein 7.6 (6.5-8.0) g/dL Albumin 3.7 (3.5-5.0) g/dL Blood Type O Positive Antibody Screen NEGATIVE Crossmatch See Detail 08/05/25 Range/Units 00:38 WBC (4.8-10.8) X10*3/uL RBC (4.20-5.50) X10*6/uL Hgb (12.0-16.0) g/dl Hct (37.0-47.0) % MCV (80.0-98.0) fL MCH (27.0-33.0) pg MCHC (31.0-35.0) g/dl RDW (11.0-16.0) % Plt Count (160-400) X10*3/uL MPV (9.4-12.3) fL Immature Gran % (Auto) (0.0-0.4) % Neut % (Auto) (45-73) % Lymph % (Auto) (20-40) % [place] % (Auto) (2-11) % Eos % (Auto) (0-4) % Baso % (Auto) (0-2) % Lymph # (Auto) (1.2-4.9) X10*3/uL [place] # (Auto) (0.1-1.2) X10*3/uL Eos # (Auto) (0.0-0.4) X10*3/uL Baso # (Auto) (0.0-0.2) X10*3/uL Abs Immat Gran (auto) (0.00-0.03) X10*3/uL Absolute Neuts (auto) (2.0-8.3) x10*3/uL Absolute Nucleated RBC (0.0-0.012) X10*3/uL Nucleated RBC % (auto) (0.0-0.2) /100WBC Smear Tech's Comments Hold Blue Top Sodium (135-145) mmol/L Potassium (3.3-5.1) mmol/L Chloride (96-108) mmol/L Carbon Dioxide (22-29) mmol/L Anion Gap (12-20) BUN (9-16) mg/dL Creatinine (0.5-1.4) mg/dL Estim Creat Clear Calc Estimated GFR Random Glucose (60-115) mg/dL Lactic Acid (0.5-2.0) mmol/L Lactic Acid F/U @ 2Hr 4.4 H* (0.5-2.0) mmol/L Calcium (8.4-10.2) mg/dL Magnesium (1.6-2.6) mg/dL Total Bilirubin (0.0-1.0) mg/dL AST (5-31) U/L ALT (0-31) U/L Alkaline Phosphatase (39-117) U/L Troponin I High Sens (<3.5-17.0) ng/L Total Protein (6.5-8.0) g/dL Albumin (3.5-5.0) g/dL Blood Type Antibody Screen Crossmatch Independent Interpretation I performed an independent interpretation of an: CT Scan Interpretation: My interpretation is in agreement with the radiologist's impression of these imaging studies. L Report Number: [id number]: Total DLP = 427.74 mGy-cm Reason for Exam: abd pain, hypotensive CLINICAL HISTORY: abd pain, hypotensive CT abdomen and pelvis with contrast Comparison: CT of the abdomen and pelvis from 04/27/2025 Findings: Please refer to chest CT report for bibasilar pulmonary opacities of the abnormal wall thickening of the imaged esophagus. Cardiomegaly noted with small pericardial effusion. Cholelithiasis redemonstrated. Mild fat deposition noted in the liver. The adrenal glands are normal. Mild volume loss of the pancreas noted. The spleen is nonenlarged. Nonobstructing nephrolithiasis of the left kidney measure up to 3 mm. No hydronephrosis. Small mesenteric and retroperitoneal lymph nodes are nonspecific and likely reactive. No small bowel obstruction. Severe stool burden is noted imaged appendix or appendiceal stump is nondilated (43 of series 15). Calcified and noncalcified plaque redemonstrated in the aorta and its branches. Wall thickening of the urinary bladder is nonspecific. Uterus deviates to the right. No adnexal soft tissue mass by CT. Osseous pelvis deformities appear old/chronic. Low bone mineralization suggested. Degenerative changes include the hips, pubic symphysis, and SI joints. Degenerative changes also present in the imaged spine with multifocal facet arthropathy. Transitional vertebral anatomy with lumbarization of the S1. No significant change in moderate height loss of the L2 compression fracture by this numbering system. IMPRESSION: 1. Severe stool burden. No small bowel obstruction. 2. Wall thickening of the urinary bladder is nonspecific. 3. Cholelithiasis redemonstrated. This document has been electronically signed by: Andi Jerry MD on 08/05/2025 00:01:39 Dictated By: Andi Jerry MD Signed By: Electronically signed by Andi Jerry MD 08/05/25 0002 Report Number: [id number]: Total DLP = 213.24 mGy-cm Reason for Exam: AMS, hypotension CLINICAL HISTORY: AMS, hypotension CT chest with contrast Comparison: Chest CT from 07/22/2024 report is reviewed. Actual images are not available at this time. Findings: No aortic dissection of the tortuous thoracic aorta. 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 Calcified and noncalcified plaque involving the imaged aorta and its branches. Coronary artery calcifications noted. Mild cardiomegaly. [id number] pericardial effusion. Small mediastinal lymph nodes are nonspecific and may be reactive. Wall thickening of the imaged esophagus including mid to lower esophagus (29 of series 5) is nonspecific by CT. Differential considerations include esophagitis. Other mural pathology not excluded by CT. Imaged rib deformities appear old/chronic. Please refer to separate report for imaged abdomen and pelvis. Degenerative changes include imaged shoulders and imaged spine. Mild vertebral height losses including T4 appear old/chronic. IMPRESSION: 1. Mild bibasilar atelectasis/pneumonitis, left worse than right. 2. Nonspecific wall thickening of the imaged esophagus This document has been electronically signed by: Andi Jerry MD on 08/05/2025 00:06:16 Dictated By: Andi Jerry MD Signed By: Electronically signed by Andi Jerry MD 08/05/25 0007 Radiology Impression Discussion of test interpretation with radiology: I have reviewed the radiologist's reading. Independent Historian Clinical information obtained from an independent historian. History obtained from or confirmed by: EMS (EMS provided additional history) Critical Care Time Critical Care Time Critical Care Time: Yes Total Critical Care Time: 68 Attestation: I spent 68 minutes of Critical Care Time with this patient. This does not include time spent on separately reported billable procedures. Discharge Plan Discharge Clinical Impression: Hematemesis, Acute GI bleeding, Acidosis, lactic, Sepsis Patient Disposition: Admitted As Inpatient
[2025-08-04 21:28] LABS: Hematocrit 46.9 % (37.0-47.0); Hemoglobin 15.5 g/dl (12.0-16.0); Imm Gran Abs Auto 0.07 X10*3/uL (0.00-0.03); Imm Gran Pct Auto 0.5 % (0.0-0.4); Lymphocytes Absolute Auto 1.4 X10*3/uL (1.2-4.9); MANUAL DIFF FLAG SCAN; Mean Corpuscular HGB Conc 33.0 g/dl (31.0-35.0); Mean Corpuscular Hemoglobin 31.8 pg (27.0-33.0); Mean Corpuscular Volume 96.1 fL (80.0-98.0); NRBC Abs Auto 0.000 X10*3/uL (0.0-0.012); NRBC Pct Auto 0.0 /100WBC (0.0-0.2); Platelet Count 303 X10*3/uL (160-400); Red Blood Count 4.88 X10*6/uL (4.20-5.50); SCAN SMEAR FLAG 1; White Blood Count 15.5 X10*3/uL (4.8-10.8)
[2025-08-04 21:30] LABS: PLT ABN DIST 1
[2025-08-04 21:45] LABS: Troponin-I High Sensitivity 97.5 ng/L (<3.5-17.0)
--- NOTE | 2025-08-04 22:38 | PC.NURSE ---
Pt arrives via EMS for a possible GI bleed. Hx of dementia and uanble to offer any health history. Does report abd pain. Per EMS, family at home reported one episode of dark brown emesis and being more confused than normal. Pt has dark brown residue inside the mouth on arrival. Hypotensive, tachycardic, and pale appearance. ALEJANDRA made aware. On unit of emergent RBC's ordered and administered. RBC's going at 100mls/hr with no complications or reactions. Multiple failed attempts at obtaining IV access. ALEJANDRA established 20G R bicep that infiltrated and a 20G L AC. After infiltrated IV removed, a 22G placed on R hand. Multiple failed attempts at obtaining cultures. Second set unable to be obtained due to difficult lab draw. Antibiotics administered after first set collected. Monitoring is ongoing.
[2025-08-04 22:41] LABS: Alanine Aminotransferase 18 U/L (0-31); Albumin Level 3.7 g/dL (3.5-5.0); Alkaline Phosphatase 76 U/L (39-117); Anion Gap 20 (12-20); Aspartate Amino Transferase 33 U/L (5-31); Blood Urea Nitrogen 60 mg/dL (9-16); Calcium 9.8 mg/dL (8.4-10.2); Carbon Dioxide 21 mmol/L (22-29); Chloride 97 mmol/L (96-108); Creatinine Clr Calc Pharmacy 23.9; Estimated Glomerular Filt Rate 46; Magnesium 2.5 mg/dL (1.6-2.6); Potassium 4.7 mmol/L (3.3-5.1); Sodium 133 mmol/L (135-145); Total Protein 7.6 g/dL (6.5-8.0)
[2025-08-04] MEDS: iohexoL 350 MG/ML 100 ML INFUS..BTL 85 ML IV (23:03)
[2025-08-05] VITALS (14 sets, daily range): BP systolic 94–121; BP diastolic 48–68; PULSE 62–98; RESP 12–20; TEMP 36.7–36.9; O2SAT 96–100; BMI 17.0
[2025-08-05 00:22] LABS: Reflex Lactate? Lactic Acid Added
[2025-08-05] MEDS: metroNIDAZOLE/NS 500 MG/100 ML PIGGYBACK 100 MG IV ×2 (00:41→12:52)
[2025-08-05 01:01] LABS: ~Lactic Acid-LAB USE ONLY 4.4 mmol/L (0.5-2.0)
--- NOTE | 2025-08-05 02:00 | PM.IMHP ---
History of Present Illness Date of Service: 08/05/25 Attending physician on admission: Josey Peñaloza Chief Complaint: Coffee-ground vomiting Elisa Weaver is a 84 y/o woman with a PMHx significant for PUD, dementia, old CVA, CAD, hyperlipidemia, hypertension and anemia was brought to the ED via EMS after she had an episode of Renato brown emesis. HPI was obtained from chart and ED provider as the patient was unable to offer her own HPI due to advanced dementia. It seems like according to the family the patient has been more confused than usual. She was found to have low BP of 87/59 and a low degree of tachycardia. Last vital signs are 101/66, heart rate 87, RR 16 and temperature 98.2 degrees. Blood workup showed leukocytosis of 15.5. There is marked lactic acidosis of 5.6 then 4.4. Hemoglobin is 15.5, hematocrit 49.9 and platelets 303. Blood workup remarkable for blood glucose of 364, CO2 21 and no other electrolyte imbalances. BUN is elevated at 60 and creatinine is 1.12. LFTs are basically unremarkable (minimal elevation of AST). Abdomen pelvis CT scan with IV contrast shows severe stool burden, no SBO, wall thickening of the urinary bladder there is nonspecific and cholelithiasis redemonstrated. Chest CT scan showed mild bibasilar atelectasis/pneumonitis left worse than right and nonspecific wall thickening of the imaged esophagus. ECG showed sinus tachycardia, heart rate 113 beats per minute without abuse ischemic changes. ED tx: Protonix 40 mg IV, ceftriaxone 1 g IV, LR 1215 mL IV bolus metronidazole 500 mg IV Review of Systems Review of Systems: Yes Unobtainable due to mental status [facility] Medical History Systolic murmur Emphysematous cystitis Anemia Cholecystitis Esophagitis Weight loss Candidiasis, esophageal Nausea & vomiting Gallstones Abnormal nuclear stress test HLD (hyperlipidemia) HTN (hypertension) CVA, old, disturbances of vision (~09/2019) NSTEMI (non-ST elevated myocardial infarction) Dementia Coronary artery disease Family History Father No problems noted. Mother No problems noted. Surgical History Previous section H/O eye surgery History of esophagogastroduodenoscopy (EGD) Social History Household Members: Unknown / Unable to assess Housing: Apartment Are you a primary medicare biller to a significant other at home: No Do you presently have visiting nurse or other home services: No Alcohol intake: never Comment: 1:1 sitter Patient Tobacco Use Status: Former Tobacco user Tobacco use type: Smokeless Tobacco Years Smoked: Chews tobacco e-Cigarette/Vaping Use: Never Used Second Hand Smoke Exposure: No Advance Directives Date on File: 09/02/22 service: No Current occupational status: retired and disabled 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 Glucose (Glucose Gel 15 Gm Gel..Gram.) 15 gm PO Q15M PRN; Protocol PRN Reason: per Hypoglycemia Standing Ord. Lactated Ringer's (Lr) 1,000 mls @ 125 mls/hr IVCONT .Q8H TAL Insulin Human Lispro (Insulin Lispro 100 Unit/Ml 3 Ml Vial) 0 unit SUBCUT Q6H TAL; Protocol Melatonin (Melatonin 3 Mg Tablet) 6 mg PO BEDTIME PRN PRN Reason: Insomnia Pantoprazole Sodium (Pantoprazole Sodium 40 Mg/10 Ml Vial) 40 mg IVPUSH Q12H TAL Sodium Chloride (0.9 % Sodium Chloride Flush 3 Ml Syringe) 3 ml IVFLUSH QSHIFT TAL Home Medications ?Medication ?Instructions ?Recorded ?Confirmed ?Last Taken ?Type mirtazapine 30 mg tablet 30 mg PO BEDTIME 06/27/21 08/05/25 08/03/25 History sertraline 25 mg tablet 1 tab PO DAILY 06/27/21 08/05/25 08/03/25 History amitriptyline 10 mg tablet 10 mg PO BEDTIME 01/22/25 08/05/25 08/03/25 History atorvastatin 40 mg tablet 40 mg PO DAILY 01/22/25 08/05/25 08/03/25 History multivitamin 1 tab PO DAILY 01/22/25 08/05/25 08/03/25 History calcium 500 mg (as 1 tab PO BID 04/27/25 08/05/25 08/03/25 History carbonate)-vitamin D3 10 mcg (400 unit) tablet (Oyster Shell Calcium-Vitamin D3) acetaminophen 500 mg tablet 500 mg PO Q6H PRN Pain 05/09/25 08/05/25 Unknown History melatonin 5 mg tablet 5 mg PO BEDTIME 08/05/25 08/05/25 08/03/25 History omeprazole 40 mg capsule,delayed 40 mg PO DAILY@0630 08/05/25 08/05/25 08/03/25 History release Physical Exam Vital Signs and Narrative: Vital Signs: Last Vital Signs Temp 98.2 F 08/05/25 00:48 Pulse 87 08/05/25 00:48 Resp 16 08/05/25 00:48 BP 111/66 08/05/25 00:48 Pulse Ox 97 08/05/25 00:22 O2 Del Method Room Air 08/05/25 00:22 BMI result Body Mass Index 17.4 General: Sleeping comfortably, in no acute distress. No answering my questions. Cachectic. Cooperative. Afebrile. HEENT: Head normocephalic, atraumatic. PER, EOMI. Sclerae anicteric, conjunctiva clear. Dry oral mucosa. Neck: Supple, no lymphadenopathy, or JVD. Heart: RRR, high pitched holosystolic murmur. Lungs: Clear to auscultation bilaterally. No wheezes, rales, or rhonchi. Normal respiratory effort. Abdomen: Soft, non tenderness, nondistended, normoactive bowel sounds. Extremities: No calf tenderness bilaterally, no swelling Musculoskeletal: Full range of motion. No joint swelling, deformity, or tenderness. Generalized atrophy. Skin: Warm/Dry. No pallor. No jaundice. Neurologic: Alert. Moving all extremities spontaneously. Psychological: No agitation. Results Labs 08/05/25 04:49 08/05/25 04:49 Labs: Laboratory Results - last 24 hr 08/04/25 08/04/25 08/04/25 21:06 21:09 22:17 MCV 96.1 MCH 31.8 MCHC 33.0 RDW 15.9 Plt Count 303 D MPV 13.2 H Immature Gran % (Auto) 0.5 H Neut % (Auto) 82.9 H Lymph % (Auto) 9.2 L [place] % (Auto) 6.2 Eos % (Auto) 0.9 Baso % (Auto) 0.3 Lymph # (Auto) 1.4 [place] # (Auto) 1.0 Eos # (Auto) 0.1 Baso # (Auto) 0.0 Abs Immat Gran (auto) 0.07 H Absolute Neuts (auto) 12.8 H Absolute Nucleated RBC 0.000 Nucleated RBC % (auto) 0.0 Smear Tech's Comments VERIFIED Hold Blue Top SEE NOTE Anion Gap 20 Estim Creat Clear Calc 23.9 Estimated GFR 46 Random Glucose 364 H* Lactic Acid 5.6 H* Lactic Acid F/U @ 2Hr Calcium 9.8 Magnesium 2.5 Total Bilirubin 0.3 AST 33 H ALT 18 Alkaline Phosphatase 76 Troponin I High Sens 97.5 H* D Total Protein 7.6 Albumin 3.7 Blood Type O Positive Antibody Screen NEGATIVE Crossmatch See Detail 08/05/25 00:38 MCV MCH MCHC RDW Plt Count MPV Immature Gran % (Auto) Neut % (Auto) Lymph % (Auto) [place] % (Auto) Eos % (Auto) Baso % (Auto) Lymph # (Auto) [place] # (Auto) Eos # (Auto) Baso # (Auto) Abs Immat Gran (auto) Absolute Neuts (auto) Absolute Nucleated RBC Nucleated RBC % (auto) Smear Tech's Comments Hold Blue Top Anion Gap Estim Creat Clear Calc Estimated GFR Random Glucose Lactic Acid Lactic Acid F/U @ 2Hr 4.4 H* Calcium Magnesium Total Bilirubin AST ALT Alkaline Phosphatase Troponin I High Sens Total Protein Albumin Blood Type Antibody Screen Crossmatch Assessment and Plan (1) Acute GI bleeding: Status: Acute (2) Acute lactic acidosis: Status: Acute Plan Elisa Weaver is a 84 y/o woman with a PMHx significant for history of gastric ulcers and cholelithiasis who presents with: Hypovolemic shock secondary to upper GI bleeding/coffee-ground emesis likely due to PUD. NPO. Hold antihypertensive meds. Avoid NSAIDs or blood thinners. Protonix 80 mg IV push then 40 mg IV b.i.d.. IV fluids. Continue to monitor H&H ( normal likely hemoconcentration). PRBC transfusion if Hgb <7. GI consult. Acute lactic acidosis, secondary to hypovolemia/hypotension. No evidence of acute infection. Hold antibiotics for now. Continue IV fluids. Blood cultures obtained -will follow. Continue to monitor lactic acid. Elevated troponin, likely demand ischemia in the setting of underlying CAD. Continue to monitor. Hyperglycemia; ?diabetes mellitus hx. Continue IV fluids. Check blood glucose now. Insulin sliding scale every 6 hours while NPO. Check hemoglobin A1c. Constipation/severe stool burden. Fleet enema. Essential hypertension. Hold metoprolol due to recent events of hypotension. Mood disorder. Continue home meds when able. Hx of CVA + CAD. Dementia, likely vascular. Code status: Full DVT prophylaxis: SCDs med rec pending Patient will need hospitalization for at least 2 midnights for GI bleeding treatment with IV anti-reflux therapy and IV fluids; patient will need continuous vital sign monitoring, closely monitoring of H&H and evaluation by subspecialty. Quality Stroke Does the patient have a stroke diagnosis?: No VTE Prior VTE?: No VTE Risk Level:: Medical - moderate - high VTE Device Contraindication: Treatment Not Indicated VTE Drug Contraindication: N/A - Med Ordered
[2025-08-05] MEDS: Lactated Ringers 1,000 ML 125 ML IVCONT ×3 (02:16→18:24)
[2025-08-05 02:41] LABS: Reflex Lactate? 2 Y
[2025-08-05 03:11] LABS: Troponin-I High Sensitivity 84.8 ng/L (<3.5-17.0)
[2025-08-05 03:12] LABS: ~Lactic Acid-LAB USE ONLY 2.9 mmol/L (0.5-2.0)
[2025-08-05 04:53] LABS: MANUAL DIFF FLAG NO
[2025-08-05 04:54] LABS: Hematocrit 41.6 % (37.0-47.0); Hemoglobin 13.8 g/dl (12.0-16.0); Imm Gran Abs Auto 0.03 X10*3/uL (0.00-0.03); Imm Gran Pct Auto 0.3 % (0.0-0.4); Lymphocytes Absolute Auto 2.6 X10*3/uL (1.2-4.9); Mean Corpuscular HGB Conc 33.2 g/dl (31.0-35.0); Mean Corpuscular Hemoglobin 30.7 pg (27.0-33.0); Mean Corpuscular Volume 92.4 fL (80.0-98.0); NRBC Abs Auto 0.000 X10*3/uL (0.0-0.012); NRBC Pct Auto 0.0 /100WBC (0.0-0.2); Platelet Count 165 X10*3/uL (160-400); Red Blood Count 4.50 X10*6/uL (4.20-5.50); White Blood Count 11.1 X10*3/uL (4.8-10.8)
[2025-08-05 05:17] LABS: Anion Gap 16 (12-20); Blood Urea Nitrogen 44 mg/dL (9-16); Calcium 8.9 mg/dL (8.4-10.2); Carbon Dioxide 21 mmol/L (22-29); Chloride 104 mmol/L (96-108); Creatinine Clr Calc Pharmacy 40.0; Estimated Glomerular Filt Rate > 60; Magnesium 2.1 mg/dL (1.6-2.6); Potassium 4.5 mmol/L (3.3-5.1); Sodium 136 mmol/L (135-145)
--- NOTE | 2025-08-05 05:40 | HO.NURTONUR ---
Addendum entered by Susie Bentley RN 08/05/25 17:06: Admit: GI bleed/Lactic Acidosis She has been NPO today- plan to switch to clear liquids. POCs- no insulin needed to be given per MD. LR running @ 125ml/hr in 20g L upper arm. She is getting IV abx, protonix, . H&H has been stable. Per MD- no need for UA sample. Incontinent- she is using a purewick. No longer hypotensive, BPs in the 100s systolic. Czech speaking only Original Note: 84 Y F with pmhx dementia presents from home after dark brown emesis, and more confused than baseline. On arrival pt was hypotensive with systolic in the 80's. 1 unit of emergent RBC's administered with no complication or reaction. BP has improved to systolic in the 100-110's. Sinus tach on monitor with HR 100's. Being admitted for acute GI bleed and lactic acidosis. Pt is diabetic and NPO. U/S guided 20G left upper arm and 22G R hand. Incontinent of urine. Pt has dementia and is not able to make needs known. Not ambulatory at this time.
[2025-08-05 05:55] LABS: Glucose, Whole Blood 177 mg/dL (60-115)
--- NOTE | 2025-08-05 10:49 | PHA.MEDREC ---
Pharmacy Consult ? Medication Reconciliation Pharmacy has completed the medication reconciliation. Spoke to patient's son Robby at bedside via vibration engineer. Robby doesn't know the names of her medications, could only say that he gives her meds that are filled at [facility] (in [facility]) so pharmacy claims were used to complete med rec. I asked him if she is still on a blood thinner and he doesn't think so (last fill was on 03/28/25 for 90 day supply). He said last dose of medications was 2 nights ago.
--- NOTE | 2025-08-05 11:11 | P.CNGI_ITS ---
History of Present Illness Data of Consult Service Date: 08/05/25 Requesting physician: Kacey La Primary Care Provider: Unknown Physician HPI Reason for consult: UGIB 84-year-old Senegalese-speaking female who is currently admitted for hematemesis. Gastroenterology consulted for further evaluation. History was obtained from the chart as patient appears confused at baseline and unable to provide meaningful history. Was noted to have witnessed coffee-ground emesis at home and then again in the emergency room. Patient reports epigastric pain with this. Denies chest pain. She was initially hypotensive and tachycardic in the emergency room with concern for hemorrhagic shock, however H&H is at baseline, in fact improved from before. She was also noted to have a high lactate of 4.4, that has now improved to 2.9. CT abdomen pelvis with significant stool burden with lymphadenopathy. Images personally reviewed and also noted to have colon wall hyperemia. Rectum distended again from significant fecal burden. Also noted to have significant rectal thickening in distal rectum on review of images. Review of Systems 2 Review of Systems: Yes all other systems are reviewed and are negative [facility] Past Medical History Medical History Systolic murmur Emphysematous cystitis Anemia Cholecystitis Esophagitis Weight loss Candidiasis, esophageal Nausea & vomiting Gallstones Abnormal nuclear stress test HLD (hyperlipidemia) HTN (hypertension) CVA, old, disturbances of vision (~09/2019) NSTEMI (non-ST elevated myocardial infarction) Dementia Coronary artery disease Family History Family History Father No problems noted. Mother No problems noted. Surgical History Surgical History Previous section H/O eye surgery History of esophagogastroduodenoscopy (EGD) Social History Social History Household Members: Children Housing: Apartment Are you a primary skin care instructor to a significant other at home: No Do you presently have visiting nurse or other home services: No Alcohol intake: never Comment: 1:1 sitter Patient Tobacco Use Status: Former Tobacco user Tobacco use type: Smokeless Tobacco Years Smoked: Chews tobacco Smoked in Last 30 Days: No e-Cigarette/Vaping Use: Never Used Second Hand Smoke Exposure: No Use of substances other than those prescribed or required for medical reasons: No Advance Directives: Yes Advance Directives on File: Yes Advance Directives Date on File: 09/02/22 Do you have a plan to hurt others: No Plan Nutrition Risks: Poor intake 0-25% >4 days service: No Current occupational status: retired and disabled 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 Glucose (Glucose Gel 15 Gm Gel..Gram.) 15 gm PO Q15M PRN; Protocol PRN Reason: per Hypoglycemia Standing Ord. Lactated Ringer's (Lr) 1,000 mls @ 125 mls/hr IVCONT .Q8H [facility] Last Admin: 08/05/25 10:36 Dose: 125 mls/hr Insulin Human Lispro (Insulin Lispro 100 Unit/Ml 3 Ml Vial) 0 unit SUBCUT Q6H [facility]; Protocol Last Admin: 08/05/25 05:50 Dose: Not Given Melatonin (Melatonin 3 Mg Tablet) 6 mg PO BEDTIME PRN PRN Reason: Insomnia Pantoprazole Sodium (Pantoprazole Sodium 40 Mg/10 Ml Vial) 40 mg IVPUSH BID@0630,1630 [facility] Sodium Biphosphate/Sodium Phosphate (Sodium Phosphate,[place]-Dibasic 133 Ml Enema) 133 ml NV ONCE PRN PRN Reason: Constipation Sodium Chloride (0.9 % Sodium Chloride Flush 3 Ml Syringe) 3 ml IVFLUSH QSHIFT [facility] Home Medications ?Medication ?Instructions ?Recorded ?Confirmed ?Last Taken ?Type mirtazapine 30 mg tablet 30 mg PO BEDTIME 06/27/2108/03/25 History sertraline 25 mg tablet 1 tab PO DAILY 06/27/2110/2908/03/25 History amitriptyline 10 mg tablet 10 mg PO BEDTIME 01/22/25 1 10/05/24 08/03/25 History atorvastatin 40 mg tablet 40 mg PO DAILY 01/22/2510/2930/25 History multivitamin 1 tab PO DAILY 01/22/2510/2908/03/25 History calcium 500 mg (as 1 tab PO BID 04/27/2508/03/25 History carbonate)-vitamin D3 10 mcg (400 unit) tablet (Oyster Shell Calcium-Vitamin D3) acetaminophen 500 mg tablet 500 mg PO Q6H PRN Pain 02/2608/05/25 Unknown History melatonin 5 mg tablet 5 mg PO BEDTIME 08/05/2510/2908/03/25 History omeprazole 40 mg capsule,delayed 40 mg PO DAILY@0630 1 10/05/24 08/05/25 08/03/25 History release Physical Exam 2 Exam: Exam: Frail elderly female winces to palpation of LLQ no overt resp distress no SONIDO Vital Signs: Vital Signs: Last Vital Signs Temp 98.2 F 08/05/25 08:02 Pulse 86 08/05/25 08:02 Resp 17 08/05/25 08:02 BP 104/52 L 08/05/25 08:02 Pulse Ox 97 08/05/25 08:02 O2 Del Method Room Air 08/05/25 08:02 BMI result Body Mass Index 17.4 Results Labs 08/05/25 04:49 08/05/25 04:49 Labs: Short CBC 08/04/25 08/05/25 Range/Units 21:09 04:49 WBC 15.5 H 11.1 H (4.8-10.8) X10*3/uL Hgb 15.5 D 13.8 (12.0-16.0) g/dl Hct 46.9 D 41.6 (37.0-47.0) % Plt Count 303 D 165 D (160-400) X10*3/uL BMP 08/04/25 08/05/25 22:17 04:49 Sodium 133 L 136 Potassium 4.7 D 4.5 Chloride 97 104 Carbon Dioxide 21 L 21 L BUN 60 H 44 H Creatinine 1.12 0.67 Calcium 9.8 8.9 D Liver Function 08/04/25 Range/Units 22:17 Total Bilirubin 0.3 (0.0-1.0) mg/dL AST 33 H (5-31) U/L ALT 18 (0-31) U/L Alkaline Phosphatase 76 (39-117) U/L Albumin 3.7 (3.5-5.0) g/dL Assessment and Plan (1) Hematemesis: Status: Acute (2) Erosive esophagitis: Status: Acute (3) Dementia: Status: Acute (4) Proctitis: Status: Acute Plan Patient presenting with hematemesis and also question of underlying sepsis versus cardiac event. Exam and CT findings suspicious for stercoral colitis/proctitis. Plan: -Fleet enema, glycerin suppositories ordered -may need manual disimpaction if minimal response to above -keep on clears or low residue diet until BMs regulate -EGD and flex sig Thursday tentatively -consider cardiology input for preprocedure clearance -Maintain x2 IV access (pt hard stick and required US guided IV access in ER) -IV protonix BID Thank you for allowing me to participate in her care. Please do not hesitate to reach out for questions or concerns. Procedures Date of Service Date of Service: 08/05/25
[2025-08-05 12:11] LABS: Glucose, Whole Blood 163 mg/dL (60-115)
--- NOTE | 2025-08-05 16:36 | PM.EVENT ---
Event Note Date of Service: 08/05/25 Event Note: Very pleasant Beninese-speaking patient is seen today. Baseline history of dementia, erosive esophagitis, CVA in the past, who presents with an acute upper GI bleed with coffee-ground emesis. Patient also noted to have pyrexia, leukocytosis, elevated lactic acid, type 2 demand ischemia, BRIANNE consistent with severe sepsis with organ dysfunction / septic shock. Source of sepsis likely 2/2 stercoral colitis/proctitis with gut translocation in the setting of coffee-ground emesis versus other source yet to be identified. Blood cultures have been obtained on 06/04 x2 Patient is currently hemodynamically stable. She received IVF. Less likely to have suffered with hemorrhagic shock in the setting of relatively stable hemoglobin. Discussed with gastroenterology. Plan for clinical stabilization with conservative in medication management, with possibility to pursue EGD and flexible sigmoidoscopy on Thursday with Gastroenterology. Echocardiography has been ordered in the setting of type 2 demand ischemia, as well as Cardiology input for preoperative clearance, as per GI recommendations. Continue IV PPI b.i.d. as per GI recommendations Input greatly appreciated Goal for the next 2 2 days is to relieve the patient of stercoral colitis Time Spent With Patient Time: Total time managing care of this patient today 45 minutes.
[2025-08-05 17:18] LABS: Glucose, Whole Blood 158 mg/dL (60-115)
[2025-08-05] MEDS: 0.9 % Sodium Chloride Flush 3 ML SYRINGE IVFLUSH (18:20)
[2025-08-05 18:24] LABS: Glucose, Whole Blood 154 mg/dL (60-115)
--- NOTE | 2025-08-05 18:27 | PC.NURSE ---
admitted to 469 from ED , fleet enema given , results Small BM hard ball dark brown
[2025-08-05 21:00] LABS: Glucose, Whole Blood 161 mg/dL (60-115)
[2025-08-06] MEDS: metroNIDAZOLE/NS 500 MG/100 ML PIGGYBACK 100 MG IV ×2 (00:29→13:25)
[2025-08-06] MEDS: 0.9 % Sodium Chloride Flush 3 ML SYRINGE IVFLUSH ×3 (00:30→17:00)
[2025-08-06 01:37] LABS: Glucose, Whole Blood 142 mg/dL (60-115)
[2025-08-06] MEDS: Lactated Ringers 1,000 ML 125 ML IVCONT ×3 (03:13→20:18)
[2025-08-06 03:56] VITALS: BP 120/56; PULSE 72; RESP 18; TEMP 36.7; O2SAT 97
[2025-08-06 07:29] VITALS: BP 105/49; PULSE 60; RESP 18; TEMP 36.6; O2SAT 95
[2025-08-06 07:36] LABS: Glucose, Whole Blood 130 mg/dL (60-115)
--- NOTE | 2025-08-06 09:49 | MHC.CM.PN ---
Addendum entered by Darlin Warner 08/06/25 09:56: CORRECTION PCP IS DR. JACKIE ARDON. Original Note: IMM GIVEN 08/06, TWO COPIES LEFT AT BEDSIDE PER REQUEST, ONE IN [place], ONE IN [place]. PATIENT WITH DX: DEMENTIA, UNABLE TO PARTAKE IN CM ASSESSMENT. THIS CM PLACED CALL TO PATIENTS GRANDDAUGHTER/HCP ITZEL. PER PATIENTS GRANDDAUGHTER, THE PATIENT LIVES AT HOME WITH HER 2 SONS, AND HAS SCRAP HANDLER SERVICES 45 HOURS/WEEK. PATIENT USES A CANE AND A WALKER. DP: RETURN HOME WITH FAMILY SUPPORT AND RESUMPTION OF PREVIOUS SCRAP HANDLER SERVICES. SON OR GRANDDAUGHTER WILL PROVIDE TRANSPORT IF AVAILABLE, BUT MAY NEED BLS IF THEY ARE NOT. PCP: DR. ESTEFANÍA VILLEGAS
[2025-08-06 11:54] LABS: Glucose, Whole Blood 116 mg/dL (60-115)
[2025-08-06 12:00] VITALS: BP 110/46; PULSE 66; RESP 18; TEMP 36.6; O2SAT 98
--- NOTE | 2025-08-06 13:02 | PC.NURSE ---
enema administered, pt had large hard brown BM , no blood in the stool
[2025-08-06 13:07] LABS: Alanine Aminotransferase 11 U/L (0-31); Albumin Level 2.7 g/dL (3.5-5.0); Alkaline Phosphatase 49 U/L (39-117); Anion Gap 13 (12-20); Aspartate Amino Transferase 47 U/L (5-31); Blood Urea Nitrogen 13 mg/dL (9-16); Calcium 8.5 mg/dL (8.4-10.2); Carbon Dioxide 19 mmol/L (22-29); Chloride 110 mmol/L (96-108); Creatinine Clr Calc Pharmacy 50.1; Estimated Glomerular Filt Rate > 60; Potassium 4.4 mmol/L (3.3-5.1); Sodium 138 mmol/L (135-145); Total Protein 5.7 g/dL (6.5-8.0)
[2025-08-06 13:49] LABS: Hematocrit 29.2 % (37.0-47.0); Hemoglobin 10.0 g/dl (12.0-16.0); Imm Gran Abs Auto 0.05 X10*3/uL (0.00-0.03); Imm Gran Pct Auto 0.6 % (0.0-0.4); Lymphocytes Absolute Auto 2.7 X10*3/uL (1.2-4.9); MANUAL DIFF FLAG SCAN; Mean Corpuscular HGB Conc 34.2 g/dl (31.0-35.0); Mean Corpuscular Hemoglobin 30.7 pg (27.0-33.0); Mean Corpuscular Volume 89.6 fL (80.0-98.0); NRBC Abs Auto 0.000 X10*3/uL (0.0-0.012); NRBC Pct Auto 0.0 /100WBC (0.0-0.2); PLT CLUMP 1; Red Blood Count 3.26 X10*6/uL (4.20-5.50); SCAN SMEAR FLAG 1
[2025-08-06 13:51] LABS: PLT ABN DIST 1; White Blood Count 8.2 X10*3/uL (4.8-10.8)
[2025-08-06 14:16] LABS: Platelet Count 155 X10*3/uL (160-400)
--- NOTE | 2025-08-06 14:24 | HO.PM.IMPN ---
Subjective Subjective Date of Service: 08/06/25 Interval History: Endorses some abdominal discomfort and bloating today. Poor appetite. Successful relief of large stool ball with use of enemas. No bleeding. Review of Systems Review of Systems: Yes all other systems are reviewed and are negative Physical Exam Exam: Exam: General: Lying comfortably in bed, without complaint. No pain or discomfort. Cardiac: S1, S2 auscultated with no S3/4, no MRG. Well perfused. Respiratory: Normal breath sounds auscultated throughout all lung zones, without wheezing, rales. Normal rate. GI/ : Some abdominal tenderness on palpation of the epigastric region, without radiation on light and deep palpation, no evidence of hepatosplenomegaly,-ve renal ballottement MSK: Normal ambulation without pain at bony prominences or musculature. Frail, cachectic generalized upper and lower extremities with temporal wasting Neurological: Normal neurological examination on overview, without obvious CN II-XII abnormalities. Vital Signs: Vital Signs: Last Vital Signs Temp 97.8 F 08/06/25 12:00 Pulse 66 08/06/25 12:00 Resp 18 08/06/25 12:00 BP 110/46 L 08/06/25 12:00 Pulse Ox 98 08/06/25 12:00 O2 Del Method Room Air 08/06/25 07:29 BMI result Body Mass Index 17.0 Objective Data Active Medications Dextrose (Dextrose 50 % 25 Gm/50 Ml Syringe) 25 gm IVPUSH Q15M PRN; Protocol PRN Reason: per Hypoglycemia Standing Ord. Glucose (Glucose Gel 15 Gm Gel..Gram.) 15 gm PO Q15M PRN; Protocol PRN Reason: per Hypoglycemia Standing Ord. Lactated Ringer's (Lr) 1,000 mls @ 125 mls/hr IVCONT .Q8H [facility] Last Admin: 08/06/25 11:42 Dose: 125 mls/hr Documented By: DERIC Ceftriaxone Sodium 1 gm/ (Sodium Chloride) 50 mls @ 100 mls/hr IV Q24H [facility] Last Infusion: 08/05/25 20:43 Dose: Infused Documented By: GRAZYNA Metronidazole (Flagyl) 500 mg in 100 mls @ 100 mls/hr IV Q12H [facility] Last Admin: 08/06/25 13:25 Dose: 100 mls/hr Documented By: DERIC Insulin Human Lispro (Insulin Lispro 100 Unit/Ml 3 Ml Vial) 0 unit SUBCUT Q6H [facility]; Protocol Last Admin: 08/06/25 12:49 Dose: Not Given Documented By: DERIC Non-Admin Reason: No Insulin Coverage Melatonin (Melatonin 3 Mg Tablet) 6 mg PO BEDTIME PRN PRN Reason: Insomnia Pantoprazole Sodium (Pantoprazole Sodium 40 Mg/10 Ml Vial) 40 mg IVPUSH BID@0630,1630 [facility] Last Admin: 08/06/25 05:45 Dose: 40 mg Documented By: GRAZYNA Sodium Chloride (0.9 % Sodium Chloride Flush 3 Ml Syringe) 3 ml IVFLUSH QSHIFT [facility] Last Admin: 08/06/25 08:08 Dose: 3 ml Documented By: DERIC Labs 08/06/25 13:35 08/06/25 12:44 Labs: Laboratory Results - last 24 hr 08/05/25 08/05/25 08/05/25 17:15 18:21 20:41 MCV MCH MCHC RDW Plt Count MPV Immature Gran % (Auto) Neut % (Auto) Lymph % (Auto) [place] % (Auto) Eos % (Auto) Baso % (Auto) Lymph # (Auto) [place] # (Auto) Eos # (Auto) Baso # (Auto) Abs Immat Gran (auto) Absolute Neuts (auto) Absolute Nucleated RBC Nucleated RBC % (auto) Smear Tech's Comments Anion Gap Estim Creat Clear Calc Estimated GFR POC Glucose 158 H 154 H 161 H Random Glucose Calcium Total Bilirubin AST ALT Alkaline Phosphatase Total Protein Albumin 08/06/25 08/06/25 08/06/25 01:32 EST 07:32 11:38 MCV MCH MCHC RDW Plt Count MPV Immature Gran % (Auto) Neut % (Auto) Lymph % (Auto) [place] % (Auto) Eos % (Auto) Baso % (Auto) Lymph # (Auto) [place] # (Auto) Eos # (Auto) Baso # (Auto) Abs Immat Gran (auto) Absolute Neuts (auto) Absolute Nucleated RBC Nucleated RBC % (auto) Smear Tech's Comments Anion Gap Estim Creat Clear Calc Estimated GFR POC Glucose 142 H 130 H 116 H Random Glucose Calcium Total Bilirubin AST ALT Alkaline Phosphatase Total Protein Albumin 08/06/25 08/06/25 12:44 13:35 MCV 89.6 MCH 30.7 MCHC 34.2 RDW 17.0 H Plt Count 155 L MPV 13.4 H Immature Gran % (Auto) 0.6 H Neut % (Auto) 53.7 Lymph % (Auto) 33.1 [place] % (Auto) 11.3 H Eos % (Auto) 0.6 Baso % (Auto) 0.7 Lymph # (Auto) 2.7 [place] # (Auto) 0.9 Eos # (Auto) 0.1 Baso # (Auto) 0.1 Abs Immat Gran (auto) 0.05 H Absolute Neuts (auto) 4.4 Absolute Nucleated RBC 0.000 Nucleated RBC % (auto) 0.0 Smear Tech's Comments VERIFIED Anion Gap 13 Estim Creat Clear Calc 50.1 Estimated GFR > 60 POC Glucose Random Glucose 126 H Calcium 8.5 Total Bilirubin 0.4 AST 47 H ALT 11 Alkaline Phosphatase 49 Total Protein 5.7 L Albumin 2.7 L Microbiology Microbiology Results: Microbiology 08/04/25 23:52 Blood Culture - Preliminary Blood - Venous No growth after 24 hours. 08/04/25 22:17 Blood Culture - Preliminary Blood - Venous No growth after 24 hours. Assessment and Plan (1) NSTEMI (non-ST elevated myocardial infarction): Status: Acute (2) Sepsis: Status: Acute (3) Septic shock: Status: Acute (4) Coffee ground emesis: Status: Acute (5) Demand ischemia: Status: Acute (6) BRIANNE (acute kidney injury): Status: Acute (7) Dementia: Status: Acute (8) Stercoral colitis: Status: Acute (9) Fecal impaction of colon: Status: Acute Plan 84 year old female, with a background medical history of peptic ulcer disease, dementia, prior CVA, CAD, presents with coffee-ground emesis, admitted with septic shock 2/2 stercoral colitis in the setting of impacted stool ball and upper GI bleed 2/2 likely recurrent peptic ulcer disease, c/b severe lactic acidosis, type 2 demand NSTEMI and prerenal BRIANNE. Septic shock Stercoral colitis Hypotensive. Source likely 2/2 stercoral colitis in the setting of the patient's impacted fecal ball. Etiology likely 2/2 gut translocation. Patient is already covered with antibiotics and IV fluids. Lactic acid elevated 5 on presentation, now normalized. PLAN - ceftriaxone 1 g OD IV - metronidazole 500 mg IV b.i.d. - gastroenterology following-greatly appreciated - follow up blood cultures - relief of stercoral colitis with laxatives Impacted fecal ball Constipation The patient's fecal ball has been relieved with use of laxatives and enemas. The patient feels relief with this Plan for flexible sigmoidoscopy by Gastroenterology Upper GI bleed History of peptic ulcer disease Gastroenterology following-recommendations greatly appreciated Receiving IV Protonix b.i.d. IV Plan for EGD by Gastroenterology Clear liquid diet Hold aspirin Type 2 demand NSTEMI Troponin elevated on presentation in the setting of hypotension due to septic shock. Patient's troponin plateaued and decreased. Echocardiography plan for further evaluation. Prerenal BRIANNE Creatinine normalizing Likely 2/2 hypotension and septic shock. Lactic acidosis Resolved. Elevated on presentation in the setting of patient's septic shock. Etiology possibly 2/2 stercoral colitis. Frailty Dementia BMI 17 Dietitian consultation placed CHRONIC MEDICAL ISSUES Dementia HTN HLD Mood disorder [employer] - VTE: SCDs - CODE STATUS: Full code - DIET: Clear liquid diet Total time managing care of this patient today: 60 minutes. Quality Stroke Does the patient have a stroke diagnosis?: No VTE Prior VTE?: No VTE Risk Level:: Medical - moderate - high VTE Device Contraindication: Treatment Not Indicated VTE Drug Contraindication: N/A - Med Ordered
[2025-08-06 15:02] VITALS: BP 114/56; PULSE 70; RESP 16; TEMP 36.7; O2SAT 93
[2025-08-06 17:16] LABS: Glucose, Whole Blood 125 mg/dL (60-115)
[2025-08-06 19:25] VITALS: BP 113/55; PULSE 71; RESP 16; TEMP 37.3; O2SAT 94
[2025-08-06 23:17] VITALS: BP 108/59; PULSE 66; RESP 16; TEMP 37.2; O2SAT 96
[2025-08-06 23:31] LABS: Glucose, Whole Blood 117 mg/dL (60-115)
[2025-08-07] MEDS: metroNIDAZOLE/NS 500 MG/100 ML PIGGYBACK 100 MG IV ×2 (00:36→12:38)
[2025-08-07 03:09] VITALS: BP 109/53; PULSE 61; RESP 16; TEMP 37.6; O2SAT 99
[2025-08-07 06:19] LABS: Glucose, Whole Blood 114 mg/dL (60-115)
--- NOTE | 2025-08-07 07:00 | CA_ITS ---
Transthoracic Echocardiogram Patient (Last, First, Middle): Elisa Weaver, Gender: Female Date of : 1940 Age: 84 Procedure Date: 08/07/2025 Procedure Type: Transthoracic Echocardiogram Location: [facility] [place] Height: 152.4 cm Weight: 39.01 kg BSA: 1.30 m2 Heart Rate: bpm BP: 108 / 55 mmHg Financial Specialist: Referring MD: Omar Kaiser MD Symptoms: septic shock, demand ischemia Study Quality: Good ECG Rhythm: Sinus Conclusions: - Normal left ventricular cavity size. There is mildly increased left ventricular wall thickness. The left ventricular systolic function is hyperdynamic. The visually estimated ejection fraction is >70%. - Normal right ventricular cavity size and systolic function. - There is mild aortic valve stenosis. Findings Left Ventricle Normal left ventricular cavity size. There is mildly increased left ventricular wall thickness. The left ventricular systolic function is hyperdynamic. The visually estimated ejection fraction is >70%. There is no evidence of regional wall motion abnormalities. Diastolic function is indeterminate on the basis of available data. Right Ventricle Normal right ventricular cavity size and systolic function. Atria The left atrium is mildly dilated. The right atrium was not well visualized. Aortic Valve The aortic valve was not well visualized. There is mild aortic valve stenosis. The peak aortic velocity is 2.15 m/s. There is no aortic valve regurgitation. Mitral Valve There is severe mitral annular calcification. There is mild mitral valve regurgitation. There is no mitral valve stenosis. Pulmonic Valve The pulmonic valve is likely normal. There is no pulmonic valve regurgitation. Tricuspid Valve Normal tricuspid valve structure. There is no tricuspid valve regurgitation. Normal right atrial pressure. There is no evidence of pulmonary hypertension. Great Vessels The visualized portions of the pulmonary artery and branches are normal. Venous The inferior vena cava is normal in size and collapses greater than 50% with inspiration. Pericardium/Pleural There is no evidence of pericardial effusion. Prior Study Comparison Changes noted compared to prior study dated: 04/28/2025. Mild present. Measurements 2D Linear Measurements IVSd: 1.28 0.6-0.9/0.6-1.0 cm LVIDd: 3.25 3.9-5.3/4.2-5.9 cm LVIDd Index: 2.50 2.4-3.2/2.2-3.1 cm/m2 LVIDs: 2.08 2.0-3.6 cm LVPWd: 1.20 0.7-1.1 cm Ao Root: 2.60 2.1-3.5 cm LA Diam: 3.90 2.7-3.8/3.0-4.0 cm LAIDs Index: 3.00 1.5-2.3 cm/m2 LV Mass: 159.96 67-162/88-224 g LV Mass Index: 123.04 43-95/49-115 g/m2 LVOT Diam: 2.00 3.0+(-)1.3 cm Mitral Valve MV VTI: 0.65 MV Pk Medardo: 1.82 MV Mn Medardo: 0.95 MV Pk Grad: 13.00 MV Mn Grad: 4.00 MV Pk E: 1.17 MV PK A: 1.48 MV Decel Time: 369.00 E/A: 0.80 E'Lateral: 3.81 E'Medial: 3.37 E/E' Med: 34.70 E/E' Lat: 30.70 PHT: 108.00 MVA PHT: 2.04 MVA Continuity: 1.89 Decel [place]: 3.18 Aortic Valve AoV Pk Medardo: 2.15 AoV Mn Medardo: 1.58 AoV VTI: 0.50 AoV Pk Grad: 18.00 Aov Mn Grad: 11.00 SUMMER Cont.VTI: 2.43 LVOT LVOT Pk Medardo: 1.73 LVOT Mn Medardo: 1.24 LVOT VTI: 0.39 LVOT Pk Grad: 12.00 LVOT Mn Grad: 7.00 LVOT Diam: 2.00 LVOT Area: 3.14 Diastolic Function MV Pk E: 1.17 MV Pk A: 1.48 E/A: 0.80 E'Medial: 3.37 E/E' Med: 34.70 E' Laterial: 3.81 E/E' Lat: 30.70 Right Ventricle TAPSE (mm): 24.00 TVS' Medardo: 14.00 Tricuspid Valve TR Pk Medardo: 2.22 TR Pk Grad: 20.00 RA Press: 3.00 RVSP: 23.00 Great Vessels Aorta Ao Root-2D: 2.60 2.0-3.7 cm Ao Asc: 3.30 2.1-3.4 cm Pulmonary Valve PV Pk Medardo: 1.11 Peak PV Grad: 5.00 Updated in Other Vendor System with Status of Final Chun Pritchett MD electronically signed on 08/08/2025 9:28:00 PM with status of Final
[2025-08-07 07:35] VITALS: BP 108/55; PULSE 63; RESP 14; TEMP 37.2; O2SAT 95
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
[2025-08-07] MEDS: 0.9 % Sodium Chloride Flush 3 ML SYRINGE IVFLUSH ×3 (11:09→20:20)
[2025-08-07 11:23] LABS: Glucose, Whole Blood 108 mg/dL (60-115)
[2025-08-07 11:30] LABS: MANUAL DIFF FLAG NO
[2025-08-07 11:45] LABS: Hematocrit 32.8 % (37.0-47.0); Hemoglobin 11.0 g/dl (12.0-16.0); Imm Gran Abs Auto 0.04 X10*3/uL (0.00-0.03); Imm Gran Pct Auto 0.6 % (0.0-0.4); Lymphocytes Absolute Auto 2.8 X10*3/uL (1.2-4.9); Mean Corpuscular HGB Conc 33.5 g/dl (31.0-35.0); Mean Corpuscular Hemoglobin 30.8 pg (27.0-33.0); Mean Corpuscular Volume 91.9 fL (80.0-98.0); NRBC Abs Auto 0.000 X10*3/uL (0.0-0.012); NRBC Pct Auto 0.0 /100WBC (0.0-0.2); Platelet Count 192 X10*3/uL (160-400); Red Blood Count 3.57 X10*6/uL (4.20-5.50); White Blood Count 7.0 X10*3/uL (4.8-10.8)
[2025-08-07 11:50] VITALS: BP 117/56; PULSE 63; RESP 16; TEMP 36.9; O2SAT 99
[2025-08-07 13:29] VITALS: BMI 17.0
--- NOTE | 2025-08-07 13:33 | MHC.CLN ---
CONSULT PT IS MODERATELY MALNOURISHED-QUALIFIES FOR NON-SEVERE MALNUTRITION IS THE CONTEXT OF CHRONIC ILLNESS PT WITH MILD DEPLETED SUBCUTANEOUS FAT AND MUSCLE MASS WITH 22% SIGNIFICANT WT LOSS X1 YEAR CURRENT DIET C/L RECOMMEND ADDING ENSURE CLEAR TID TO PROVIDE 720KCALS, 24G PROTEIN CAN ADVANCE SUPPLEMENT DIET ADVANCES MONITOR PO INTAKE AND ENCOURAGE SUPPLEMENT SEE FULL ASSESSMENT
--- NOTE | 2025-08-07 14:09 | MHC.CM.PN ---
Per rounds, pt is not ready to DC, GI, ID and electronic drafter to see her. Pt. is active with [facility] and has 44 hrs per week [employer] services.
[2025-08-07 14:46] LABS: Appearance Urine Turbid; Glucose Urine UA Negative (Negative); PH 8.5 (5.0-9.0); Specific Gravity - Urine 1.010 (1.005-1.025)
[2025-08-07 15:31] VITALS: BP 102/59; PULSE 66; RESP 14; TEMP 37; O2SAT 98
[2025-08-07 16:45] LABS: Glucose, Whole Blood 117 mg/dL (60-115)
[2025-08-07 19:46] VITALS: BP 126/60; PULSE 64; RESP 18; TEMP 36.4; O2SAT 97
[2025-08-07 23:04] LABS: Glucose, Whole Blood 130 mg/dL (60-115)
[2025-08-07 23:59] VITALS: BP 129/58; PULSE 61; RESP 18; TEMP 36.9; O2SAT 96
[2025-08-08] VITALS (10 sets, daily range): BP systolic 88–124; BP diastolic 42–60; PULSE 54–68; RESP 16–18; TEMP 36.1–36.9; O2SAT 94–99
[2025-08-08] MEDS: metroNIDAZOLE/NS 500 MG/100 ML PIGGYBACK 100 MG IV ×2 (01:14→14:19)
[2025-08-08 05:22] LABS: Glucose, Whole Blood 120 mg/dL (60-115)
[2025-08-08] MEDS: 0.9 % Sodium Chloride Flush 3 ML SYRINGE IVFLUSH ×3 (07:49→19:25)
--- NOTE | 2025-08-08 08:09 | HO.ANESPROP2 ---
Documented by User: Bushra Beavers NP 08/08/25 08:59 HPI - Anesthesia Eval Consult details Narrative: 84 yr old female for upper endoscopy, flex sigmoid s/p EGD 04/2025 with TIVA *Do not intubate* Advance dementia Admitted with hypovolemic shock secondary to upper GI bleeding/coffee-ground emesis likely due to PUD. Acute lactic acidosis, secondary to hypovolemia/hypotension. Elevated troponin, likely demand ischemia in the setting of underlying CAD: EKG without evidence of NSTEMI; last [facility] [place] from 2020, pt not candidate for invasive procedure 2/2 cognitive impairment. H/O CVA PMFSH Active Problems Active Problems: All Active Problems Fecal impaction of colon (Acute) Stercoral colitis (Acute) BRIANNE (acute kidney injury) (Acute) Demand ischemia (Acute) Coffee ground emesis (Acute) Septic shock (Acute) Proctitis (Acute) Acute lactic acidosis (Acute) Sepsis (Acute) Acidosis, lactic (Acute) Acute GI bleeding (Acute) Hematemesis (Acute) Chronic constipation (Acute) Erosive esophagitis (Acute) Diastolic murmur (Acute) Ellie glabrata infection (Acute) Gastritis (Acute) Gastric ulcer (Acute) Weakness (Acute) Acute hypokalemia (Acute) Acute UTI (Acute) Rotator cuff arthropathy of right shoulder (Acute) Metacarpal bone fracture (Acute) Ulnar shaft fracture (Acute) COVID-19 (Acute) Fracture of distal end of right radius with routine healing (Acute) Distal radius fracture, right (Acute) Nausea & vomiting (Acute) Dementia (Acute) Gallstones (Acute) Abnormal nuclear stress test (Acute) HLD (hyperlipidemia) (Acute) CVA, old, disturbances of vision (Acute ~09/2019) NSTEMI (non-ST elevated myocardial infarction) (Acute) Past Medical History Medical History Systolic murmur Emphysematous cystitis Anemia Cholecystitis Esophagitis Weight loss Candidiasis, esophageal Nausea & vomiting Gallstones Abnormal nuclear stress test HLD (hyperlipidemia) HTN (hypertension) CVA, old, disturbances of vision (~09/2019) NSTEMI (non-ST elevated myocardial infarction) Dementia Coronary artery disease Family History Family History Father No problems noted. Mother No problems noted. Family history of problems with anesthesia: No Surgical History Surgical History Previous section H/O eye surgery History of esophagogastroduodenoscopy (EGD) History of Problems with Anesthesia: No Social History Social History Household Members: Unknown / Unable to assess Housing: Apartment Are you a primary multi care technician to a significant other at home: No Do you presently have visiting nurse or other home services: No Alcohol intake: never Comment: 1:1 sitter Patient Tobacco Use Status: Former Tobacco user Tobacco use type: Smokeless Tobacco Years Smoked: Chews tobacco e-Cigarette/Vaping Use: Never Used Second Hand Smoke Exposure: No Advance Directives Date on File: 09/02/22 service: No Current occupational status: retired and disabled 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 Glucose (Glucose Gel 15 Gm Gel..Gram.) 15 gm PO Q15M PRN; Protocol PRN Reason: per Hypoglycemia Standing Ord. Ceftriaxone Sodium 1 gm/ (Sodium Chloride) 50 mls @ 100 mls/hr IV Q24H [facility] Last Infusion: 08/07/25 20:51 Dose: Infused Metronidazole (Flagyl) 500 mg in 100 mls @ 100 mls/hr IV Q12H [facility] Last Infusion: 08/08/25 02:14 Dose: Infused Insulin Human Lispro (Insulin Lispro 100 Unit/Ml 3 Ml Vial) 0 unit SUBCUT Q6H [facility]; Protocol Last Admin: 08/08/25 05:24 Dose: Not Given Melatonin (Melatonin 3 Mg Tablet) 6 mg PO BEDTIME PRN PRN Reason: Insomnia Last Admin: 08/07/25 20:19 Dose: 6 mg Pantoprazole Sodium (Pantoprazole Sodium 40 Mg/10 Ml Vial) 40 mg IVPUSH BID@0630,1630 [facility] Last Admin: 08/08/25 05:41 Dose: 40 mg Sodium Chloride (0.9 % Sodium Chloride Flush 3 Ml Syringe) 3 ml IVFLUSH QSHIFT [facility] Last Admin: 08/08/25 07:49 Dose: 3 ml Home Medications ?Medication ?Instructions ?Recorded ?Confirmed ?Last Taken ?Type mirtazapine 30 mg tablet 30 mg PO BEDTIME 06/27/21 08/05/25 08/03/25 History sertraline 25 mg tablet 1 tab PO DAILY 06/27/21 08/05/25 08/03/25 History amitriptyline 10 mg tablet 10 mg PO BEDTIME 01/22/25 08/05/25 08/03/25 History atorvastatin 40 mg tablet 40 mg PO DAILY 01/22/25 08/05/25 08/03/25 History multivitamin 1 tab PO DAILY 01/22/25 08/05/25 08/03/25 History calcium 500 mg (as 1 tab PO BID 04/27/25 08/05/25 08/03/25 History carbonate)-vitamin D3 10 mcg (400 unit) tablet (Oyster Shell Calcium-Vitamin D3) acetaminophen 500 mg tablet 500 mg PO Q6H PRN Pain 05/09/25 08/05/25 Unknown History melatonin 5 mg tablet 5 mg PO BEDTIME 08/05/25 08/05/25 08/03/25 History omeprazole 40 mg capsule,delayed 40 mg PO DAILY@0630 08/05/25 08/05/25 08/03/25 History release Exam Height,Weight and Vital Signs: Height 5 ft Weight 39.4 kg Last Vital Signs Temp 97.6 F 08/08/25 04:00 Pulse 61 08/08/25 04:00 Resp 18 08/08/25 04:00 BP 115/55 L 08/08/25 04:00 Pulse Ox 99 08/08/25 04:00 O2 Del Method Room Air 08/08/25 04:00 Pertinent Lab Results Pertinent Lab Results: Laboratory Tests 08/04/25 08/04/25 08/04/25 21:06 21:09 22:17 WBC 15.5 H RBC 4.88 D Hgb 15.5 D Hct 46.9 D MCV 96.1 MCH 31.8 MCHC 33.0 RDW 15.9 Plt Count 303 D MPV 13.2 H Immature Gran % (Auto) 0.5 H Neut % (Auto) 82.9 H Lymph % (Auto) 9.2 L [place] % (Auto) 6.2 Eos % (Auto) 0.9 Baso % (Auto) 0.3 Lymph # (Auto) 1.4 [place] # (Auto) 1.0 Eos # (Auto) 0.1 Baso # (Auto) 0.0 Abs Immat Gran (auto) 0.07 H Absolute Neuts (auto) 12.8 H Absolute Nucleated RBC 0.000 Nucleated RBC % (auto) 0.0 Smear Tech's Comments VERIFIED Hold Blue Top SEE NOTE Sodium 133 L Potassium 4.7 D Chloride 97 Carbon Dioxide 21 L Anion Gap 20 BUN 60 H Creatinine 1.12 Estim Creat Clear Calc 23.9 Estimated GFR 46 POC Glucose Random Glucose 364 H* Estimat Average Glucose Hemoglobin A1c % Lactic Acid 5.6 H* Lactic Acid F/U @ 2Hr Lactic Acid F/U @ 4Hr Calcium 9.8 Magnesium 2.5 Total Bilirubin 0.3 AST 33 H ALT 18 Alkaline Phosphatase 76 Troponin I High Sens 97.5 H* D Total Protein 7.6 Albumin 3.7 Urine Color Urine Appearance Urine pH Ur Specific [place] Urine Protein Urine Glucose (UA) Urine Ketones Urine Blood Urine Nitrite Ur Leukocyte Esterase Blood Type O Positive Antibody Screen NEGATIVE Crossmatch See Detail 08/05/25 08/05/25 08/05/25 00:38 02:41 02:45 WBC RBC Hgb Hct MCV MCH MCHC RDW Plt Count MPV Immature Gran % (Auto) Neut % (Auto) Lymph % (Auto) [place] % (Auto) Eos % (Auto) Baso % (Auto) Lymph # (Auto) [place] # (Auto) Eos # (Auto) Baso # (Auto) Abs Immat Gran (auto) Absolute Neuts (auto) Absolute Nucleated RBC Nucleated RBC % (auto) Smear Tech's Comments Hold Blue Top Sodium Potassium Chloride Carbon Dioxide Anion Gap BUN Creatinine Estim Creat Clear Calc Estimated GFR POC Glucose Random Glucose Estimat Average Glucose Hemoglobin A1c % Lactic Acid Lactic Acid F/U @ 2Hr 4.4 H* Lactic Acid F/U @ 4Hr 2.9 H* Calcium Magnesium Total Bilirubin AST ALT Alkaline Phosphatase Troponin I High Sens 84.8 H* Total Protein Albumin Urine Color Urine Appearance Urine pH Ur Specific [place] Urine Protein Urine Glucose (UA) Urine Ketones Urine Blood Urine Nitrite Ur Leukocyte Esterase Blood Type Antibody Screen Crossmatch 08/05/25 08/05/25 08/05/25 04:49 05:49 12:02 WBC 11.1 H RBC 4.50 Hgb 13.8 Hct 41.6 MCV 92.4 MCH 30.7 MCHC 33.2 RDW 17.4 H Plt Count 165 D MPV 12.9 H Immature Gran % (Auto) 0.3 Neut % (Auto) 63.5 Lymph % (Auto) 23.6 [place] % (Auto) 12.3 H Eos % (Auto) 0.0 Baso % (Auto) 0.3 Lymph # (Auto) 2.6 [place] # (Auto) 1.4 H Eos # (Auto) 0.0 Baso # (Auto) 0.0 Abs Immat Gran (auto) 0.03 Absolute Neuts (auto) 7.1 Absolute Nucleated RBC 0.000 Nucleated RBC % (auto) 0.0 Smear Tech's Comments Hold Blue Top Sodium 136 Potassium 4.5 Chloride 104 Carbon Dioxide 21 L Anion Gap 16 BUN 44 H Creatinine 0.67 Estim Creat Clear Calc 40.0 Estimated GFR > 60 POC Glucose 177 H 163 H Random Glucose 207 H Estimat Average Glucose 126 Hemoglobin A1c % 6.0 Lactic Acid Lactic Acid F/U @ 2Hr Lactic Acid F/U @ 4Hr Calcium 8.9 D Magnesium 2.1 Total Bilirubin AST ALT Alkaline Phosphatase Troponin I High Sens Total Protein Albumin Urine Color Urine Appearance Urine pH Ur Specific [place] Urine Protein Urine Glucose (UA) Urine Ketones Urine Blood Urine Nitrite Ur Leukocyte Esterase Blood Type Antibody Screen Crossmatch 08/05/25 08/05/25 08/05/25 17:15 18:21 20:41 WBC RBC Hgb Hct MCV MCH MCHC RDW Plt Count MPV Immature Gran % (Auto) Neut % (Auto) Lymph % (Auto) [place] % (Auto) Eos % (Auto) Baso % (Auto) Lymph # (Auto) [place] # (Auto) Eos # (Auto) Baso # (Auto) Abs Immat Gran (auto) Absolute Neuts (auto) Absolute Nucleated RBC Nucleated RBC % (auto) Smear Tech's Comments Hold Blue Top Sodium Potassium Chloride Carbon Dioxide Anion Gap BUN Creatinine Estim Creat Clear Calc Estimated GFR POC Glucose 158 H 154 H 161 H Random Glucose Estimat Average Glucose Hemoglobin A1c % Lactic Acid Lactic Acid F/U @ 2Hr Lactic Acid F/U @ 4Hr Calcium Magnesium Total Bilirubin AST ALT Alkaline Phosphatase Troponin I High Sens Total Protein Albumin Urine Color Urine Appearance Urine pH Ur Specific [place] Urine Protein Urine Glucose (UA) Urine Ketones Urine Blood Urine Nitrite Ur Leukocyte Esterase Blood Type Antibody Screen Crossmatch 08/06/25 08/06/25 08/06/25 01:32 EST 07:32 11:38 WBC RBC Hgb Hct MCV MCH MCHC RDW Plt Count MPV Immature Gran % (Auto) Neut % (Auto) Lymph % (Auto) [place] % (Auto) Eos % (Auto) Baso % (Auto) Lymph # (Auto) [place] # (Auto) Eos # (Auto) Baso # (Auto) Abs Immat Gran (auto) Absolute Neuts (auto) Absolute Nucleated RBC Nucleated RBC % (auto) Smear Tech's Comments Hold Blue Top Sodium Potassium Chloride Carbon Dioxide Anion Gap BUN Creatinine Estim Creat Clear Calc Estimated GFR POC Glucose 142 H 130 H 116 H Random Glucose Estimat Average Glucose Hemoglobin A1c % Lactic Acid Lactic Acid F/U @ 2Hr Lactic Acid F/U @ 4Hr Calcium Magnesium Total Bilirubin AST ALT Alkaline Phosphatase Troponin I High Sens Total Protein Albumin Urine Color Urine Appearance Urine pH Ur Specific [place] Urine Protein Urine Glucose (UA) Urine Ketones Urine Blood Urine Nitrite Ur Leukocyte Esterase Blood Type Antibody Screen Crossmatch 08/06/25 08/06/25 08/06/25 12:44 13:35 17:13 WBC 8.2 RBC 3.26 L D Hgb 10.0 L D Hct 29.2 L D MCV 89.6 MCH 30.7 MCHC 34.2 RDW 17.0 H Plt Count 155 L MPV 13.4 H Immature Gran % (Auto) 0.6 H Neut % (Auto) 53.7 Lymph % (Auto) 33.1 [place] % (Auto) 11.3 H Eos % (Auto) 0.6 Baso % (Auto) 0.7 Lymph # (Auto) 2.7 [place] # (Auto) 0.9 Eos # (Auto) 0.1 Baso # (Auto) 0.1 Abs Immat Gran (auto) 0.05 H Absolute Neuts (auto) 4.4 Absolute Nucleated RBC 0.000 Nucleated RBC % (auto) 0.0 Smear Tech's Comments VERIFIED Hold Blue Top Sodium 138 Potassium 4.4 Chloride 110 H Carbon Dioxide 19 L Anion Gap 13 BUN 13 Creatinine 0.52 Estim Creat Clear Calc 50.1 Estimated GFR > 60 POC Glucose 125 H Random Glucose 126 H Estimat Average Glucose Hemoglobin A1c % Lactic Acid Lactic Acid F/U @ 2Hr Lactic Acid F/U @ 4Hr Calcium 8.5 Magnesium Total Bilirubin 0.4 AST 47 H ALT 11 Alkaline Phosphatase 49 Troponin I High Sens Total Protein 5.7 L Albumin 2.7 L Urine Color Urine Appearance Urine pH Ur Specific [place] Urine Protein Urine Glucose (UA) Urine Ketones Urine Blood Urine Nitrite Ur Leukocyte Esterase Blood Type Antibody Screen Crossmatch 08/06/25 08/07/25 08/07/25 23:25 06:15 10:32 WBC 7.0 RBC 3.57 L Hgb 11.0 L Hct 32.8 L MCV 91.9 MCH 30.8 MCHC 33.5 RDW 16.6 H Plt Count 192 MPV 12.9 H Immature Gran % (Auto) 0.6 H Neut % (Auto) 43.6 L Lymph % (Auto) 40.6 H [place] % (Auto) 12.2 H Eos % (Auto) 2.3 Baso % (Auto) 0.7 Lymph # (Auto) 2.8 [place] # (Auto) 0.9 Eos # (Auto) 0.2 Baso # (Auto) 0.1 Abs Immat Gran (auto) 0.04 H Absolute Neuts (auto) 3.1 Absolute Nucleated RBC 0.000 Nucleated RBC % (auto) 0.0 Smear Tech's Comments Hold Blue Top Sodium Potassium Chloride Carbon Dioxide Anion Gap BUN Creatinine Estim Creat Clear Calc Estimated GFR POC Glucose 117 H 114 Random Glucose Estimat Average Glucose Hemoglobin A1c % Lactic Acid Lactic Acid F/U @ 2Hr Lactic Acid F/U @ 4Hr Calcium Magnesium Total Bilirubin AST ALT Alkaline Phosphatase Troponin I High Sens Total Protein Albumin Urine Color Urine Appearance Urine pH Ur Specific [place] Urine Protein Urine Glucose (UA) Urine Ketones Urine Blood Urine Nitrite Ur Leukocyte Esterase Blood Type Antibody Screen Crossmatch 08/07/25 08/07/25 08/07/25 11:17 14:05 16:41 WBC RBC Hgb Hct MCV MCH MCHC RDW Plt Count MPV Immature Gran % (Auto) Neut % (Auto) Lymph % (Auto) [place] % (Auto) Eos % (Auto) Baso % (Auto) Lymph # (Auto) [place] # (Auto) Eos # (Auto) Baso # (Auto) Abs Immat Gran (auto) Absolute Neuts (auto) Absolute Nucleated RBC Nucleated RBC % (auto) Smear Tech's Comments Hold Blue Top Sodium Potassium Chloride Carbon Dioxide Anion Gap BUN Creatinine Estim Creat Clear Calc Estimated GFR POC Glucose 108 117 H Random Glucose Estimat Average Glucose Hemoglobin A1c % Lactic Acid Lactic Acid F/U @ 2Hr Lactic Acid F/U @ 4Hr Calcium Magnesium Total Bilirubin AST ALT Alkaline Phosphatase Troponin I High Sens Total Protein Albumin Urine Color Yellow Urine Appearance Turbid Urine pH 8.5 Ur Specific [place] 1.010 Urine Protein Negative Urine Glucose (UA) Negative Urine Ketones Trace Urine Blood Negative Urine Nitrite Negative Ur Leukocyte Esterase Negative Blood Type Antibody Screen Crossmatch 08/07/25 08/08/25 23:00 05:10 WBC RBC Hgb Hct MCV MCH MCHC RDW Plt Count MPV Immature Gran % (Auto) Neut % (Auto) Lymph % (Auto) [place] % (Auto) Eos % (Auto) Baso % (Auto) Lymph # (Auto) [place] # (Auto) Eos # (Auto) Baso # (Auto) Abs Immat Gran (auto) Absolute Neuts (auto) Absolute Nucleated RBC Nucleated RBC % (auto) Smear Tech's Comments Hold Blue Top Sodium Potassium Chloride Carbon Dioxide Anion Gap BUN Creatinine Estim Creat Clear Calc Estimated GFR POC Glucose 130 H 120 H Random Glucose Estimat Average Glucose Hemoglobin A1c % Lactic Acid Lactic Acid F/U @ 2Hr Lactic Acid F/U @ 4Hr Calcium Magnesium Total Bilirubin AST ALT Alkaline Phosphatase Troponin I High Sens Total Protein Albumin Urine Color Urine Appearance Urine pH Ur Specific [place] Urine Protein Urine Glucose (UA) Urine Ketones Urine Blood Urine Nitrite Ur Leukocyte Esterase Blood Type Antibody Screen Crossmatch Narrative Narrative: EKG 08/04/25 Vent. Rate : 113 BPM Atrial Rate : 113 BPM P-R Int : 152 ms QRS Dur : 84 ms QT Int : 354 ms P-R-T Axes : 64 40 71 degrees QTcB Int : 485 ms Sinus tachycardia Minimal voltage criteria for LVH, may be normal variant ( [place] product ) Borderline ECG When compared with ECG of 08-May-2025 16:28, Vent. rate has increased by 37 bpm ECHO 04/2025 Conclusions: - Limited study performed on the patient before she went to operating room. - No evidence of aortic valve stenosis based on this limited study. Findings Left Ventricle Normal left ventricular size and systolic function. The visually estimated ejection fraction is between 55-60%. Right Ventricle Normal right ventricular cavity size and systolic function. Assessment and Plan Final Anesthetic Review Family History of Problems with Anesthesia: No History of Problems with Anesthesia: No Documented by User: Moises Fleming MD 08/08/25 12:59 [facility] Past Medical History Medical History Systolic murmur Emphysematous cystitis Anemia Cholecystitis Esophagitis Weight loss Candidiasis, esophageal Nausea & vomiting Gallstones Abnormal nuclear stress test HLD (hyperlipidemia) HTN (hypertension) CVA, old, disturbances of vision (~09/2019) NSTEMI (non-ST elevated myocardial infarction) Dementia Coronary artery disease Family History Family History Father No problems noted. Mother No problems noted. Surgical History Surgical History Previous section H/O eye surgery History of esophagogastroduodenoscopy (EGD) Social History Social History Household Members: Unknown / Unable to assess Housing: Apartment Are you a primary multi care technician to a significant other at home: No Do you presently have visiting nurse or other home services: No Alcohol intake: never Comment: 1:1 sitter Patient Tobacco Use Status: Former Tobacco user Tobacco use type: Smokeless Tobacco Years Smoked: Chews tobacco e-Cigarette/Vaping Use: Never Used Second Hand Smoke Exposure: No Advance Directives Date on File: 09/02/22 service: No Current occupational status: retired and disabled 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 Meds Allergies Allergy/AdvReac Type Severity Reaction Status Date / Time No Known Allergies (NO KNOWN Allergy Unknown UNKNOWN Verified 08/04/25 20:32 ALLERGIES) Home Medications ?Medication ?Instructions ?Recorded ?Confirmed ?Last Taken ?Type mirtazapine 30 mg tablet 30 mg PO BEDTIME 06/27/21 08/05/25 08/03/25 History sertraline 25 mg tablet 1 tab PO DAILY 06/27/21 08/05/25 08/03/25 History amitriptyline 10 mg tablet 10 mg PO BEDTIME 01/22/25 08/05/25 08/03/25 History atorvastatin 40 mg tablet 40 mg PO DAILY 01/22/25 08/05/25 08/03/25 History multivitamin 1 tab PO DAILY 01/22/25 08/05/25 08/03/25 History calcium 500 mg (as 1 tab PO BID 04/27/25 08/05/25 08/03/25 History carbonate)-vitamin D3 10 mcg (400 unit) tablet (Oyster Shell Calcium-Vitamin D3) acetaminophen 500 mg tablet 500 mg PO Q6H PRN Pain 05/09/25 08/05/25 Unknown History melatonin 5 mg tablet 5 mg PO BEDTIME 08/05/25 08/05/25 08/03/25 History omeprazole 40 mg capsule,delayed 40 mg PO DAILY@0630 08/05/25 08/05/25 08/03/25 History release Exam Airway Mallampati Class: II TM Dist: <=3cm Neck ROM: Full Denture: Upper and Lower Heart: ok Lungs: ok Assessment and Plan Assessment Anesthesia Assessment: Anesthesia Plan Discussed and Chart Reviewed Final Anesthetic Review NPO: Yes ASA Class: IV Final Preanesthetic Review: No Changes in Pt Med Stat, Meds/Allgs Chart Reviewed, Consent Obtained/Reviewed and Anes Risks/Benef Reviewed Patient Risk: High Procedure Risk: Intermediate Anesthetic Plan Anesthetic Plan: TIVA Disposition: Standard PACU
[2025-08-08 08:29] LABS: Hematocrit 31.8 % (37.0-47.0); Hemoglobin 11.1 g/dl (12.0-16.0); Imm Gran Abs Auto 0.09 X10*3/uL (0.00-0.03); Imm Gran Pct Auto 1.3 % (0.0-0.4); Lymphocytes Absolute Auto 2.7 X10*3/uL (1.2-4.9); MANUAL DIFF FLAG SCAN; Mean Corpuscular HGB Conc 34.9 g/dl (31.0-35.0); Mean Corpuscular Hemoglobin 31.1 pg (27.0-33.0); Mean Corpuscular Volume 89.1 fL (80.0-98.0); NRBC Abs Auto 0.000 X10*3/uL (0.0-0.012); NRBC Pct Auto 0.0 /100WBC (0.0-0.2); PLT CLUMP 1; Red Blood Count 3.57 X10*6/uL (4.20-5.50); SCAN SMEAR FLAG 1
[2025-08-08 08:57] LABS: White Blood Count 6.8 X10*3/uL (4.8-10.8)
--- NOTE | 2025-08-08 10:00 | HO.PM.IMPN ---
Subjective Subjective Date of Service: 08/08/25 Interval History: Patient to undergo flexible sigmoidoscopy and EGD today Review of Systems Review of Systems: Yes all other systems are reviewed and are negative Physical Exam Exam: Exam: General: AOx3, no acute distress, edentulous Resp: CTA bilaterally CVS: S1, S2, RRR GI: sluggish Bs, non-tender Neuro: Limited 2/2 clinical status - likely her baseline Vital Signs: Vital Signs: Last Vital Signs Temp 97.0 F 08/08/25 07:59 Pulse 63 08/08/25 07:59 Resp 17 08/08/25 07:59 BP 106/60 08/08/25 07:59 Pulse Ox 94 08/08/25 07:59 O2 Del Method Room Air 08/08/25 07:59 BMI result Body Mass Index 17.0 Objective Data Active Medications Dextrose (Dextrose 50 % 25 Gm/50 Ml Syringe) 25 gm IVPUSH Q15M PRN; Protocol PRN Reason: per Hypoglycemia Standing Ord. Glucose (Glucose Gel 15 Gm Gel..Gram.) 15 gm PO Q15M PRN; Protocol PRN Reason: per Hypoglycemia Standing Ord. Ceftriaxone Sodium 1 gm/ (Sodium Chloride) 50 mls @ 100 mls/hr IV Q24H [facility] Last Infusion: 08/07/25 20:51 Dose: Infused Documented By: JULIET Metronidazole (Flagyl) 500 mg in 100 mls @ 100 mls/hr IV Q12H [facility] Last Infusion: 08/08/25 02:14 Dose: Infused Documented By: JULIET Insulin Human Lispro (Insulin Lispro 100 Unit/Ml 3 Ml Vial) 0 unit SUBCUT Q6H [facility]; Protocol Last Admin: 08/08/25 05:24 Dose: Not Given Documented By: JULIET Non-Admin Reason: No Insulin Coverage Melatonin (Melatonin 3 Mg Tablet) 6 mg PO BEDTIME PRN PRN Reason: Insomnia Last Admin: 08/07/25 20:19 Dose: 6 mg Documented By: JULIET Pantoprazole Sodium (Pantoprazole Sodium 40 Mg/10 Ml Vial) 40 mg IVPUSH BID@0630,1630 [facility] Last Admin: 08/08/25 05:41 Dose: 40 mg Documented By: JULIET Sodium Chloride (0.9 % Sodium Chloride Flush 3 Ml Syringe) 3 ml IVFLUSH QSHIFT [facility] Last Admin: 08/08/25 07:49 Dose: 3 ml Documented By: DUSTY Labs 08/08/25 08:10 08/06/25 12:44 Labs: Laboratory Results - last 24 hr 08/07/25 08/07/25 08/07/25 10:32 11:17 14:05 MCV 91.9 MCH 30.8 MCHC 33.5 RDW 16.6 H Plt Count 192 MPV 12.9 H Immature Gran % (Auto) 0.6 H Neut % (Auto) 43.6 L Lymph % (Auto) 40.6 H [place] % (Auto) 12.2 H Eos % (Auto) 2.3 Baso % (Auto) 0.7 Lymph # (Auto) 2.8 [place] # (Auto) 0.9 Eos # (Auto) 0.2 Baso # (Auto) 0.1 Abs Immat Gran (auto) 0.04 H Absolute Neuts (auto) 3.1 Absolute Nucleated RBC 0.000 Nucleated RBC % (auto) 0.0 Smear Tech's Comments POC Glucose 108 Lactic Acid Urine Color Yellow Urine Appearance Turbid Urine pH 8.5 Ur Specific [place] 1.010 Urine Protein Negative Urine Glucose (UA) Negative Urine Ketones Trace Urine Blood Negative Urine Nitrite Negative Ur Leukocyte Esterase Negative 08/07/25 08/07/25 08/08/25 16:41 23:00 05:10 MCV MCH MCHC RDW Plt Count MPV Immature Gran % (Auto) Neut % (Auto) Lymph % (Auto) [place] % (Auto) Eos % (Auto) Baso % (Auto) Lymph # (Auto) [place] # (Auto) Eos # (Auto) Baso # (Auto) Abs Immat Gran (auto) Absolute Neuts (auto) Absolute Nucleated RBC Nucleated RBC % (auto) Smear Tech's Comments POC Glucose 117 H 130 H 120 H Lactic Acid Urine Color Urine Appearance Urine pH Ur Specific [place] Urine Protein Urine Glucose (UA) Urine Ketones Urine Blood Urine Nitrite Ur Leukocyte Esterase 08/08/25 08/08/25 08:10 09:10 MCV 89.1 MCH 31.1 MCHC 34.9 RDW 15.9 Plt Count TNP MPV TNP Immature Gran % (Auto) 1.3 H Neut % (Auto) 44.0 L Lymph % (Auto) 40.0 [place] % (Auto) 10.9 Eos % (Auto) 3.2 Baso % (Auto) 0.6 Lymph # (Auto) 2.7 [place] # (Auto) 0.7 Eos # (Auto) 0.2 Baso # (Auto) 0.0 Abs Immat Gran (auto) 0.09 H Absolute Neuts (auto) 3.0 Absolute Nucleated RBC 0.000 Nucleated RBC % (auto) 0.0 Smear Tech's Comments VERIFIED POC Glucose Lactic Acid 1.2 Urine Color Urine Appearance Urine pH Ur Specific [place] Urine Protein Urine Glucose (UA) Urine Ketones Urine Blood Urine Nitrite Ur Leukocyte Esterase Assessment and Plan (1) Acute GI bleeding: Status: Acute Plan 84 year old female, with a background medical history of PUD, dementia, prior CVA, CAD, presented with coffee-ground emesis, admitted with septic shock 2/2 stercoral colitis in the setting of impacted stool ball and upper GI bleed 2/2 likely recurrent peptic ulcer disease, c/b severe lactic acidosis, type 2 demand NSTEMI and prerenal BRIANNE. Pt to undergo EGD and Flex sig today SIRS 2/2 likely stercolocolitis - on IV abx , will deescalate based on EGD and Flex sigmoidoscopy Source likely 2/2 stercoral colitis in the setting of the patient's impacted fecal ball. Cont abx , deescalate prn GI consulted - Pt to undergo EGD and Flex sig today Impacted fecal ball Constipation The patient's fecal ball has been relieved with use of laxatives and enemas. The patient feels relief with this Plan for flexible sigmoidoscopy by Gastroenterology today UGIB, PUD Gastroenterology following-recommendations greatly appreciated Receiving IV Protonix b.i.d. IV Plan for EGD by Gastroenterology Clear liquid diet, NPO from midnight Resume Aspirin - stroke risk is high Type 2 demand NSTEMI 2/2 sepsis - resolved Prerenal BRIANNE - prerenal - IVF and recheck - downtrending Frailty Mod PCM - protein supplementation , Dementia BMI 17 Dietitian consultation placed- will supplement with Boost TID reduce pressure with Q2H respositioning CHRONIC MEDICAL ISSUES Dementia - dementia precautions HTN -cont home meds HLD cont statin Mood disorder - continue home meds .dvt px: Lovenox This note is constructed using voice recognition software. While every effort has been made to ensure accuracy, tubular stock glass bulb machine former errors may have been included. Pt needs ongoing hosp for EGD and flex sig today for eval of UGIB and relief of stercorocolitis. Quality Stroke Does the patient have a stroke diagnosis?: No VTE Prior VTE?: No VTE Risk Level:: Medical - moderate - high VTE Device Contraindication: Treatment Not Indicated VTE Drug Contraindication: N/A - Med Ordered
--- NOTE | 2025-08-08 12:34 | PC.NURSE ---
20g left upper [id number] pain or leaking. 22g right hand removed-painful and leaking.
--- NOTE | 2025-08-08 12:45 | PC.NURSE ---
automotive parts interpreter and son by the bedside for plan of care and consents.
--- NOTE | 2025-08-08 12:46 | MHC.SHP ---
Pre-Procedural Eval Section A - 24 Hr Update-Section A only Date of Service: 08/08/25 The patient is an INPATIENT: Yes The patient has been examined within 24 hours of the surgical procedure. The History & Physical has been completed within 30 days and I have reviewed it.: Yes Section B - Complete if H&P > 30 days Chief Complaint: coffee-ground emesis, hypovolemic shock Allergies: Allergies Allergy/AdvReac Type Severity Reaction Status Date / Time No Known Allergies (NO KNOWN Allergy Unknown UNKNOWN Verified 08/04/25 20:32 ALLERGIES) Plan Diagnosis/Plan: Unchanged I have reviewed the history and physical and performed a pertinent physical examination on my patient. No changes have occurred unless specified. Time Spent With Patient Time: Total time managing care of this patient today ____ minutes.
--- NOTE | 2025-08-08 13:41 | P.OPN-COLO_ITS ---
Colonoscopy Operative Note Operative Note Date of Service: 08/08/25 Narrative: Procedure: Upper endoscopy and flexible sigmoidoscopy Indication: Hematemesis, proctitis Endoscopist: Antonia Tobar MD Anesthesia Provider: Summer Viramontes CRNA Anesthesia type: MAC Instrument: [id number] EGD Procedure:?? The procedure, indications, preparation and potential complications were reviewed with the patient's son/HCP Robby with the help of terrazzo mechanic, who indicated understanding and gave written informed consent to proceed. The endoscope was introduced through the mouth, and advanced to the 2nd part of the duodenum. The mucosa was carefully examined on slow withdrawal of the endoscope. The patient tolerated the procedure well. There were no immediate complications.? EGD Findings:? * Esophagus:? Severe esophagitis from 21 cm to 30 cm with friability. The GE junction was at 30 cm and displaced by a hiatal hernia with the diaphragmatic hiatus at 33 cm. * Stomach:? Normal gastric mucosa. Retroflexion was performed in the cardia. * Duodenum:? Normal duodenal mucosa. Flexible sigmoidoscopy procedure:? The patient was then turned for the colonoscopy. A digital rectal exam was performed which was abnormal for external hemorrhoids.? The gastroscope was then inserted through the anus and advanced through the colon and advanced to the transverse colon at 55 cm.?Mucosa was carefully examined under high definition white light as the instrument was slowly withdrawn in a retrograde panoramic fashion. Retroflexion was performed in rectum. The procedure was not difficult. The quality of the prep was BBPS: adequate Limitations: No limitations Findings: Mucosa: A single ulcer was present just 4 cm distal to the anorectal junction at 4 o clock position. Cold forceps biopsies were taken from the edges to evaluate for SRUS vs stercoral ulcer. Protruding lesions: * Large internal hemorrhoids without stigmata of recent bleeding. Impression: 1. Grade D esophagitis 2. Hiatal hernia 3. Normal stomach 4. Normal duodenum 5. Rectal ulcer (biopsy) 6. Internal and external hemorrhoids Recommendations:?? * Follow-up path results * Avoid NSAIDs * Cont omeprazole 20 mg BID x 2 months total then once daily * Consider barium swallow in 8 weeks and if esophagitis persistent consider escalation to PCAB * Keep HOB elevated to 30 degrees while sleeping/resting * Avoid laying down within 60 mins of meals * Avoid rectal temps or suppositories * Cont bowel regimen with miralax daily
--- NOTE | 2025-08-08 13:56 | MHC.CM.PN ---
KIMO FROM [facility] CALLED TO SPEAK WITH THIS CM. CM RETURNED CALL AND LEFT MESSAGE FOR A RETURN CALL WHEN ABLE.
--- NOTE | 2025-08-08 14:54 | HO.PM.IMPN ---
Subjective Subjective Date of Service: 08/08/25 Physical Exam Vital Signs: Vital Signs: Last Vital Signs Temp 97 F 08/08/25 14:00 Pulse 68 08/08/25 14:00 Resp 16 08/08/25 14:00 BP 96/56 L 08/08/25 14:00 Pulse Ox 98 08/08/25 14:00 O2 Del Method Room Air 08/08/25 14:00 BMI result Body Mass Index 17.0 Objective Data Active Medications Dextrose (Dextrose 50 % 25 Gm/50 Ml Syringe) 25 gm IVPUSH Q15M PRN; Protocol PRN Reason: per Hypoglycemia Standing Ord. Glucose (Glucose Gel 15 Gm Gel..Gram.) 15 gm PO Q15M PRN; Protocol PRN Reason: per Hypoglycemia Standing Ord. Ceftriaxone Sodium 1 gm/ (Sodium Chloride) 50 mls @ 100 mls/hr IV Q24H [facility] Last Infusion: 08/07/25 20:51 Dose: Infused Documented By: JULIET Metronidazole (Flagyl) 500 mg in 100 mls @ 100 mls/hr IV Q12H [facility] Last Admin: 08/08/25 14:19 Dose: 100 mls/hr Documented By: DUSTY Insulin Human Lispro (Insulin Lispro 100 Unit/Ml 3 Ml Vial) 0 unit SUBCUT Q6H [facility]; Protocol Last Admin: 08/08/25 11:39 Dose: Not Given Documented By: DUSTY Non-Admin Reason: NPO Melatonin (Melatonin 3 Mg Tablet) 6 mg PO BEDTIME PRN PRN Reason: Insomnia Last Admin: 08/07/25 20:19 Dose: 6 mg Documented By: JULIET Naloxone HCl (Naloxone Hcl 0.4 Mg/Ml Vial) 0.04 mg IVPUSH Q5M PRN PRN Reason: Excessive sedation or RR < 8 Pantoprazole Sodium (Pantoprazole Sodium 40 Mg/10 Ml Vial) 40 mg IVPUSH BID@0630,1630 [facility] Last Admin: 08/08/25 05:41 Dose: 40 mg Documented By: JULIET Sodium Biphosphate/Sodium Phosphate (Sodium Phosphate,[place]-Dibasic 133 Ml Enema) 133 ml [place] ONCE PRN PRN Reason: Pre-Op Surgical Prep Last Admin: 08/08/25 11:00 Dose: 133 ml Documented By: DUSTY Sodium Biphosphate/Sodium Phosphate (Sodium Phosphate,[place]-Dibasic 133 Ml Enema) 133 ml OR ONCE PRN PRN Reason: Pre-Op Surgical Prep Last Admin: 08/08/25 11:00 Dose: 133 ml Documented By: DUSTY Sodium Chloride (0.9 % Sodium Chloride Flush 3 Ml Syringe) 3 ml IVFLUSH QSHIFT [facility] Last Admin: 08/08/25 14:21 Dose: 3 ml Documented By: DUSTY Labs 08/08/25 08:10 08/06/25 12:44 Labs: Laboratory Results - last 24 hr 08/07/25 08/07/25 08/08/25 16:41 23:00 05:10 MCV MCH MCHC RDW Plt Count MPV Immature Gran % (Auto) Neut % (Auto) Lymph % (Auto) [place] % (Auto) Eos % (Auto) Baso % (Auto) Lymph # (Auto) [place] # (Auto) Eos # (Auto) Baso # (Auto) Abs Immat Gran (auto) Absolute Neuts (auto) Absolute Nucleated RBC Nucleated RBC % (auto) Smear Tech's Comments POC Glucose 117 H 130 H 120 H Lactic Acid 08/08/25 08/08/25 08:10 09:10 MCV 89.1 MCH 31.1 MCHC 34.9 RDW 15.9 Plt Count TNP MPV TNP Immature Gran % (Auto) 1.3 H Neut % (Auto) 44.0 L Lymph % (Auto) 40.0 [place] % (Auto) 10.9 Eos % (Auto) 3.2 Baso % (Auto) 0.6 Lymph # (Auto) 2.7 [place] # (Auto) 0.7 Eos # (Auto) 0.2 Baso # (Auto) 0.0 Abs Immat Gran (auto) 0.09 H Absolute Neuts (auto) 3.0 Absolute Nucleated RBC 0.000 Nucleated RBC % (auto) 0.0 Smear Tech's Comments VERIFIED POC Glucose Lactic Acid 1.2 Quality Stroke Does the patient have a stroke diagnosis?: No VTE Prior VTE?: No VTE Risk Level:: Medical - moderate - high VTE Device Contraindication: Treatment Not Indicated VTE Drug Contraindication: N/A - Med Ordered
[2025-08-08 17:53] LABS: Glucose, Whole Blood 131 mg/dL (60-115)
[2025-08-09 00:05] LABS: Glucose, Whole Blood 127 mg/dL (60-115)
[2025-08-09] MEDS: metroNIDAZOLE/NS 500 MG/100 ML PIGGYBACK 100 MG IV (00:24)
[2025-08-09 03:20] VITALS: BP 114/53; PULSE 62; RESP 18; TEMP 36.2; O2SAT 98
[2025-08-09 05:23] LABS: Glucose, Whole Blood 144 mg/dL (60-115)
[2025-08-09 05:49] LABS: MANUAL DIFF FLAG NO
--- NOTE | 2025-08-09 05:53 | PC.NURSE ---
Pt seen asleep on bed, awaken with care and when name called, pt confused, impulsive at times but redirectible, tolerated po, slept at intervals.
[2025-08-09 06:10] LABS: Hematocrit 33.7 % (37.0-47.0); Hemoglobin 11.4 g/dl (12.0-16.0); Imm Gran Abs Auto 0.03 X10*3/uL (0.00-0.03); Imm Gran Pct Auto 0.5 % (0.0-0.4); Lymphocytes Absolute Auto 2.3 X10*3/uL (1.2-4.9); Mean Corpuscular HGB Conc 33.8 g/dl (31.0-35.0); Mean Corpuscular Hemoglobin 31.0 pg (27.0-33.0); Mean Corpuscular Volume 91.6 fL (80.0-98.0); NRBC Abs Auto 0.000 X10*3/uL (0.0-0.012); NRBC Pct Auto 0.0 /100WBC (0.0-0.2); Platelet Count 226 X10*3/uL (160-400); Red Blood Count 3.68 X10*6/uL (4.20-5.50); White Blood Count 6.2 X10*3/uL (4.8-10.8)
--- NOTE | 2025-08-09 07:18 | HO.PM.IMPN ---
Subjective Subjective Date of Service: 08/09/25 Interval History: Patient is s/p flexible sigmoidoscopy and EGD today Review of Systems Review of Systems: Yes all other systems are reviewed and are negative Physical Exam Exam: Exam: General: AOx3, no acute distress, edentulous Resp: CTA bilaterally CVS: S1, S2, RRR GI: sluggish Bs, non-tender Neuro: Limited 2/2 clinical status - likely her baseline Vital Signs: Vital Signs: Last Vital Signs Temp 97.2 F 08/09/25 03:20 Pulse 62 08/09/25 03:20 Resp 18 08/09/25 03:20 BP 114/53 L 08/09/25 03:20 Pulse Ox 98 08/09/25 03:20 O2 Del Method Room Air 08/09/25 03:20 BMI result Body Mass Index 17.0 Objective Data Active Medications Dextrose (Dextrose 50 % 25 Gm/50 Ml Syringe) 25 gm IVPUSH Q15M PRN; Protocol PRN Reason: per Hypoglycemia Standing Ord. Glucose (Glucose Gel 15 Gm Gel..Gram.) 15 gm PO Q15M PRN; Protocol PRN Reason: per Hypoglycemia Standing Ord. Ceftriaxone Sodium 1 gm/ (Sodium Chloride) 50 mls @ 100 mls/hr IV Q24H [facility] Last Infusion: 08/08/25 20:01 Dose: Infused Documented By: LUIS MANUEL Metronidazole (Flagyl) 500 mg in 100 mls @ 100 mls/hr IV Q12H [facility] Last Infusion: 08/09/25 01:27 Dose: Infused Documented By: LUIS MANUEL Insulin Human Lispro (Insulin Lispro 100 Unit/Ml 3 Ml Vial) 0 unit SUBCUT Q6H [facility]; Protocol Last Admin: 08/09/25 05:31 Dose: Not Given Documented By: LUIS MANUEL Non-Admin Reason: No Insulin Coverage Comments: POC 144 Melatonin (Melatonin 3 Mg Tablet) 6 mg PO BEDTIME PRN PRN Reason: Insomnia Last Admin: 08/08/25 19:38 Dose: 6 mg Documented By: LUIS MANUEL Naloxone HCl (Naloxone Hcl 0.4 Mg/Ml Vial) 0.04 mg IVPUSH Q5M PRN PRN Reason: Excessive sedation or RR < 8 Sodium Biphosphate/Sodium Phosphate (Sodium Phosphate,[place]-Dibasic 133 Ml Enema) 133 ml [place] ONCE PRN PRN Reason: Pre-Op Surgical Prep Last Admin: 08/08/25 11:00 Dose: 133 ml Documented By: DUSTY Sodium Biphosphate/Sodium Phosphate (Sodium Phosphate,[place]-Dibasic 133 Ml Enema) 133 ml [place] ONCE PRN PRN Reason: Pre-Op Surgical Prep Last Admin: 08/08/25 11:00 Dose: 133 ml Documented By: DUSTY Sodium Chloride (0.9 % Sodium Chloride Flush 3 Ml Syringe) 3 ml IVFLUSH QSHIFT [facility] Last Admin: 08/08/25 19:25 Dose: 3 ml Documented By: LUIS MANUEL Labs 08/09/25 05:15 08/06/25 12:44 Labs: Laboratory Results - last 24 hr 08/08/25 08/08/25 08/08/25 08:10 09:10 17:49 MCV 89.1 MCH 31.1 MCHC 34.9 RDW 15.9 Plt Count TNP MPV TNP Immature Gran % (Auto) 1.3 H Neut % (Auto) 44.0 L Lymph % (Auto) 40.0 [place] % (Auto) 10.9 Eos % (Auto) 3.2 Baso % (Auto) 0.6 Lymph # (Auto) 2.7 [place] # (Auto) 0.7 Eos # (Auto) 0.2 Baso # (Auto) 0.0 Abs Immat Gran (auto) 0.09 H Absolute Neuts (auto) 3.0 Absolute Nucleated RBC 0.000 Nucleated RBC % (auto) 0.0 Smear Tech's Comments VERIFIED POC Glucose 131 H Lactic Acid 1.2 08/08/25 08/09/25 08/09/25 23:40 05:15 05:18 MCV 91.6 MCH 31.0 MCHC 33.8 RDW 15.9 Plt Count 226 MPV 12.0 Immature Gran % (Auto) 0.5 H Neut % (Auto) 42.2 L Lymph % (Auto) 37.5 [place] % (Auto) 15.0 H Eos % (Auto) 4.3 H Baso % (Auto) 0.5 Lymph # (Auto) 2.3 [place] # (Auto) 0.9 Eos # (Auto) 0.3 Baso # (Auto) 0.0 Abs Immat Gran (auto) 0.03 Absolute Neuts (auto) 2.6 Absolute Nucleated RBC 0.000 Nucleated RBC % (auto) 0.0 Smear Tech's Comments POC Glucose 127 H 144 H Lactic Acid Assessment and Plan (1) Acute GI bleeding: Status: Acute Plan 84 year old female, with a background medical history of PUD, dementia, prior CVA, CAD, presented with coffee-ground emesis, admitted with septic shock 2/2 stercoral colitis in the setting of impacted stool ball and upper GI bleed 2/2 likely recurrent peptic ulcer disease, c/b severe lactic acidosis, type 2 demand NSTEMI and prerenal BRIANNE. s/p Flex sig single ulcer was present just 4 cm distal to the anorectal junction at 4 o clock position 1. Grade D esophagitis 2. Hiatal hernia 3. Normal stomach 4. Normal duodenum 5. Rectal ulcer (biopsy) 6. Internal and external hemorrhoids Recommendations:?? Follow-up path results Avoid NSAIDs Cont omeprazole 20 mg BID x 2 months total then once daily Consider barium swallow in 8 weeks and if esophagitis persistent consider escalation to PCAB Keep HOB elevated to 30 degrees while sleeping/resting Avoid laying down within 60 mins of meals Avoid rectal temps or suppositories Cont bowel regimen with miralax daily Impacted fecal ball Constipation The patient's fecal ball has been relieved with use of laxatives and enemas. The patient feels relief with this UGIB, PUD Gastroenterology following-recommendations greatly appreciated Receiving IV Protonix b.i.d. IV resume diet liquid diet Resume Aspirin - stroke risk is high Type 2 demand NSTEMI 2/2 sepsis - resolved Prerenal BRIANNE - prerenal - IVF and recheck - downtrending Frailty Mod PCM - protein supplementation , Dementia BMI 17 Dietitian consultation placed- will supplement with Boost TID reduce pressure with Q2H respositioning CHRONIC MEDICAL ISSUES Dementia - dementia precautions HTN -cont home meds HLD cont statin Mood disorder - continue home meds .dvt px: Lovenox This note is constructed using voice recognition software. While every effort has been made to ensure accuracy, peritoneal dialysis registered nurse errors may have been included. Pt to DC tomorrow Quality Stroke Does the patient have a stroke diagnosis?: No VTE Prior VTE?: No VTE Risk Level:: Medical - moderate - high VTE Device Contraindication: Treatment Not Indicated VTE Drug Contraindication: N/A - Med Ordered
[2025-08-09 07:34] VITALS: BP 106/55; PULSE 64; RESP 18; TEMP 36.3; O2SAT 98
[2025-08-09] MEDS: 0.9 % Sodium Chloride Flush 3 ML SYRINGE IVFLUSH ×3 (08:02→20:35)
--- NOTE | 2025-08-09 08:21 | HO.POSTANES ---
Post Anesthesia Evaluation Post Anesthesia Evaluation Date of Service: 08/09/25 Vital Signs: Vital Signs Temp Pulse Resp BP Pulse Ox O2 Del Method 08/09/25 07:34 97.4 F 64 18 106/55 L 98 Room Air 08/09/25 03:20 97.2 F 62 18 114/53 L 98 Room Air 08/08/25 23:35 97.1 F 54 18 118/58 L 96 Room Air Anesthesia: TIVA Mental Status: Sedated (resting comfortably, responds with word salad) Pain Control: Satisfactory Nausea/Vomiting: None Hydration: Adequate Anesthesia-Related Issues: No Anes. Related Issues
--- NOTE | 2025-08-09 09:10 | MHC.CLN ---
F/U CONTINUES WITH CLEAR LIQUID DIET. ENSURE CLEAR TID TO PROVIDE 720KCALS, 24G PROTEIN. FOLLOW FOR DIET ADVANCEMENT AND PO INTAKE.
[2025-08-09 11:07] VITALS: BP 111/55; PULSE 56; RESP 18; TEMP 36.1; O2SAT 98
[2025-08-09 11:21] LABS: Glucose, Whole Blood 170 mg/dL (60-115)
--- NOTE | 2025-08-09 15:36 | MHC.CM.PN ---
CM NOTIFIED OF RETURN MESSAGE FROM KIMO AT [facility]. CM CALLED AND LEFT ANOTHER MESSAGE FOR A RETURN CALL. CM WILL CONTINUE TO FOLLOW.
[2025-08-09 15:41] VITALS: BP 111/56; PULSE 62; RESP 14; TEMP 36.5; O2SAT 99
--- NOTE | 2025-08-09 16:04 | MHC.CM.PN ---
per rounds possible dc home plan [facility] w[facility]services
[2025-08-09 16:25] LABS: Glucose, Whole Blood 219 mg/dL (60-115)
--- NOTE | 2025-08-09 17:41 | P.CDIM_ITS ---
PROVIDER RESPONSE TEXT: To clarify, the appropriate diagnosis supported by the clinical indicators: Malnutrition: moderate QUERY TEXT: PHYSICIAN'S DOCUMENTATION REQUEST Date of Query: 08/09/2025 07:50 AM EST Patient Name: Elisa Weaver Admit Date: 08/05/2025 Dear Sandy Hurd MD, A review of the medical record indicates additional documentation may be needed. Please review below and update the documentation accordingly. Clinical Indicators: Height: 5ft Weight: 39.4kg BMI: 17.0 Other Clinical Notes Supporting Significance of the BMI: Clinical nutrition notes 08/07/25 -Patient is moderately malnourished in context of chronic illness. Mild depletion subcutaneous fat and muscle mass with 22% significant wt loss x 1 year. If possible, please provide an associated diagnosis related to the abnormal BMI, such as: Malnutrition mild, moderate, severe Anorexia Other (explain) Clinically unable to determine (explain) Thank you, Fernanda Sauceda, CCS, CDIS Use of terms such as suspected, likely, concern for, or probable (associated with a specific diagnosis that is being evaluated, monitored, or treated as if it exists) are acceptable and can be coded in the inpatient setting, when documented at the time of discharge. Please use your independent medical judgment in providing your response. THIS QUERY IS PART OF THE PERMANENT MEDICAL RECORD
[2025-08-09 19:37] VITALS: BP 118/57; PULSE 67; RESP 18; TEMP 36.4; O2SAT 98
[2025-08-09 22:36] LABS: Glucose, Whole Blood 96 mg/dL (60-115)
[2025-08-09 23:17] VITALS: BP 103/55; PULSE 65; RESP 18; TEMP 36.4; O2SAT 98
[2025-08-09 23:27] LABS: Glucose, Whole Blood 129 mg/dL (60-115)
[2025-08-10 03:18] VITALS: BP 133/56; PULSE 68; RESP 18; TEMP 36.3; O2SAT 96
[2025-08-10 05:03] LABS: Glucose, Whole Blood 108 mg/dL (60-115)
[2025-08-10 06:17] LABS: MANUAL DIFF FLAG NO
[2025-08-10 06:41] LABS: Hematocrit 35.1 % (37.0-47.0); Hemoglobin 12.1 g/dl (12.0-16.0); Imm Gran Abs Auto 0.03 X10*3/uL (0.00-0.03); Imm Gran Pct Auto 0.4 % (0.0-0.4); Lymphocytes Absolute Auto 2.6 X10*3/uL (1.2-4.9); Mean Corpuscular HGB Conc 34.5 g/dl (31.0-35.0); Mean Corpuscular Hemoglobin 31.1 pg (27.0-33.0); Mean Corpuscular Volume 90.2 fL (80.0-98.0); NRBC Abs Auto 0.000 X10*3/uL (0.0-0.012); NRBC Pct Auto 0.0 /100WBC (0.0-0.2); Platelet Count 226 X10*3/uL (160-400); Red Blood Count 3.89 X10*6/uL (4.20-5.50); White Blood Count 7.5 X10*3/uL (4.8-10.8)
[2025-08-10 07:43] VITALS: BP 119/63; PULSE 63; RESP 17; TEMP 36.2; O2SAT 100
[2025-08-10] MEDS: 0.9 % Sodium Chloride Flush 3 ML SYRINGE IVFLUSH ×2 (07:46→15:20)
[2025-08-10 11:06] VITALS: BP 118/56; PULSE 71; RESP 17; TEMP 36.9; O2SAT 98
[2025-08-10 11:13] LABS: Glucose, Whole Blood 210 mg/dL (60-115)
--- NOTE | 2025-08-10 11:16 | HO.PM.IMPN ---
Subjective Subjective Date of Service: 08/10/25 Interval History: Patient seen examined at bedside this morning, pleasantly demented at this time, patient states that she is still not feeling well, no acute overnight events. Review of Systems Review of Systems: Yes all other systems are reviewed and are negative Physical Exam Exam: Exam: General: AxOx1, No acute distress, frail appearing Head: AT/NC ENT: Moist mucous membranes Neck: supple CVS; RRR, S1 S2 normal Lungs: Clear bilateral breath sounds, no wheezes or crackles Abd: Soft non tender, non distended Ext: No edema and no calf tenderness MSK: moving all 4 limbs Skin: No cyanosis or edema Psych: Cooperative with exam Neurology: no focal deficit Vital Signs: Vital Signs: Last Vital Signs Temp 98.4 F 08/10/25 11:06 Pulse 71 08/10/25 11:06 Resp 17 08/10/25 11:06 BP 118/56 L 08/10/25 11:06 Pulse Ox 98 08/10/25 11:06 O2 Del Method Room Air 08/10/25 11:06 BMI result Body Mass Index 17.0 Objective Data Active Medications Dextrose (Dextrose 50 % 25 Gm/50 Ml Syringe) 25 gm IVPUSH Q15M PRN; Protocol PRN Reason: per Hypoglycemia Standing Ord. Glucose (Glucose Gel 15 Gm Gel..Gram.) 15 gm PO Q15M PRN; Protocol PRN Reason: per Hypoglycemia Standing Ord. Ceftriaxone Sodium 1 gm/ (Sodium Chloride) 50 mls @ 100 mls/hr IV Q24H [facility] Last Infusion: 08/09/25 21:14 Dose: Infused Documented By: SANDER Insulin Human Lispro (Insulin Lispro 100 Unit/Ml 3 Ml Vial) 0 unit SUBCUT Q6H [facility]; Protocol Last Admin: 08/10/25 05:27 Dose: Not Given Documented By: SANDER Non-Admin Reason: No Insulin Coverage Comments: POC 108 Melatonin (Melatonin 3 Mg Tablet) 6 mg PO BEDTIME PRN PRN Reason: Insomnia Last Admin: 08/08/25 19:38 Dose: 6 mg Documented By: LUIS MANUEL Metronidazole (Metronidazole 500 Mg Tablet) 500 mg PO Q12H [facility] Last Admin: 08/10/25 01:07 Dose: 500 mg Documented By: SANDER Naloxone HCl (Naloxone Hcl 0.4 Mg/Ml Vial) 0.04 mg IVPUSH Q5M PRN PRN Reason: Excessive sedation or RR < 8 Sodium Biphosphate/Sodium Phosphate (Sodium Phosphate,Stephenson-Dibasic 133 Ml Enema) 133 ml MS ONCE PRN PRN Reason: Pre-Op Surgical Prep Last Admin: 08/08/25 11:00 Dose: 133 ml Documented By: DUSTY Sodium Biphosphate/Sodium Phosphate (Sodium Phosphate,Stephenson-Dibasic 133 Ml Enema) 133 ml MS ONCE PRN PRN Reason: Pre-Op Surgical Prep Last Admin: 08/08/25 11:00 Dose: 133 ml Documented By: DUSTY Sodium Chloride (0.9 % Sodium Chloride Flush 3 Ml Syringe) [facility] Last Admin: 08/10/25 07:46 Dose: 3 ml Documented By: CLEMENCIA Labs 08/10/25 05:58 08/06/25 12:44 Labs: Laboratory Results - last 24 hr 08/09/25 08/09/25 08/09/25 11:09 16:17 22:32 MCV MCH MCHC RDW Plt Count MPV Immature Gran % (Auto) Neut % (Auto) Lymph % (Auto) Stephenson % (Auto) Eos % (Auto) Baso % (Auto) Lymph # (Auto) Stephenson # (Auto) Eos # (Auto) Baso # (Auto) Abs Immat Gran (auto) Absolute Neuts (auto) Absolute Nucleated RBC Nucleated RBC % (auto) POC Glucose 170 H 219 H 96 08/09/25 08/10/25 08/10/25 23:20 05:00 05:58 MCV 90.2 MCH 31.1 MCHC 34.5 RDW 16.1 H Plt Count 226 MPV 12.2 Immature Gran % (Auto) 0.4 Neut % (Auto) 48.3 Lymph % (Auto) 34.3 Stephenson % (Auto) 13.3 H Eos % (Auto) 3.2 Baso % (Auto) 0.5 Lymph # (Auto) 2.6 Stephenson # (Auto) 1.0 Eos # (Auto) 0.2 Baso # (Auto) 0.0 Abs Immat Gran (auto) 0.03 Absolute Neuts (auto) 3.6 Absolute Nucleated RBC 0.000 Nucleated RBC % (auto) 0.0 POC Glucose 129 H 108 08/10/25 11:09 MCV MCH MCHC RDW Plt Count MPV Immature Gran % (Auto) Neut % (Auto) Lymph % (Auto) Stephenson % (Auto) Eos % (Auto) Baso % (Auto) Lymph # (Auto) Stephenson # (Auto) Eos # (Auto) Baso # (Auto) Abs Immat Gran (auto) Absolute Neuts (auto) Absolute Nucleated RBC Nucleated RBC % (auto) POC Glucose 210 H Microbiology Microbiology Results: Microbiology 08/04/25 23:52 Blood Culture - Final Blood - Venous No growth after 5 days. 08/04/25 22:17 Blood Culture - Final Blood - Venous No growth after 5 days. Assessment and Plan (1) Dementia: Status: Acute (2) Rectal ulcer: Status: Acute (3) Esophagitis: Status: Acute Plan 84 year old female, with a background medical history of PUD, dementia, prior CVA, CAD, presented with coffee-ground emesis, admitted with septic shock 2/2 stercoral colitis in the setting of impacted stool ball and upper GI bleed 2/2 likely recurrent peptic ulcer disease, c/b severe lactic acidosis, type 2 demand NSTEMI and prerenal BRIANNE. underent flex sigmoidoscopy in 08/09 finding Grade D esophagitis and rectal ulcer s/p biopsy Grade D esophagitis avoid NSAIDs Cont omeprazole 20 mg BID x 2 months total then once daily Consider barium swallow in 8 weeks and if esophagitis persistent consider escalation to PCAB Keep HOB elevated to 30 degrees while sleeping/resting Avoid laying down within 60 mins of meals Rectal ulcer s/p biopsy follow up w/ pathology reports Avoid rectal temps or suppositories Cont bowel regimen with miralax daily Constipation continue bowel regimen Type 2 demand NSTEMI 2/2 sepsis - resolved Prerenal BRIANNE, resolved Malnutrition BMI 17 continue supplement with Boost TID reduce pressure with Q2H respositioning CHRONIC MEDICAL ISSUES Dementia - dementia precautions HTN -cont home meds HLD cont statin Mood disorder - continue home meds Disposition: All questions and concerns with the patient were answered to satisfaction. All pertinent clinical documents, images and labs were reviewed. DISCLAIMER: This document was created using voice recognition software. Any mistakes in the prescription are unintentional. An attempt was made to focus for accuracy, but to expedite availability, some errors may persist. Please contact with any need for correction or further clarification Total time managing care of this patient today: 35 minutes. Quality Stroke Does the patient have a stroke diagnosis?: No VTE Prior VTE?: No VTE Risk Level:: Medical - moderate - high VTE Device Contraindication: Treatment Not Indicated VTE Drug Contraindication: N/A - Med Ordered
--- NOTE | 2025-08-10 11:51 | MHC.SL.SWA ---
Speech Pathologist Impression: Mild-moderate oropharyngeal dysphagia, suspected mild-moderate phayrngesophageal dysphagia Risk of Aspiration Due to: Extensive GI hx, dentition status, cognition Dysphasia Diet Status: Recommend UPGRADE to NDD1, Thin liquids with 1:1 feeding assist, medications CRUSHED in puree Liquid Consistency and Strategies for Safe Swallow: Liquid Intake Recommendation: Thin Liquid Intake Strategies: Solid Food Consistency: Dietary Recommendations: Pureed (NDD1) Additional Modifications to Solid Foods: Oral Medication Intake: Crushed with Puree Please contact the pharmacy regarding appropriate crushable or liquid drug formulations that are available whenever modified delivery is recommended. Compensatory Strategies and Precautions to be Taken for Safe Swallow: Upright position during PO intake, remain at least 45 minutes after PO intake Small sips/bites Alternate liquids/solids Requires cueing Supervision While Eating and Drinking for Safe Swallow: Total Assistance (1:1) Foods to Avoid: Swallowing Recommended Treatments: Compensatory Strategies Recommendation for Speech: Inpatient Speech Therapy Comment: Patient presents with mild-moderate oropharyngeal dysphagia and suspected mild-moderate pharyngoesophageal dysphagia. Patient accepting small spoonful of applesauce x4; mild-moderate delay in swallow/noted hold of bolus, no lingual pumping prior to swallow noted. Patient swallow more timely with cues to swallow. Patient also accepting thin liquids via controlled cup sip and straw sip. Patient with no s/sx of penetration/aspiration. Difficult to view swallow trigger as patient cold and continually placing blanket up over upper body. Patient making no attempts to feed self this date. Recommended UPGRADE to NDD1 (pureed), Thin liquids with 1:1 feeding assist medications CRUSHED in puree. RN, MD, and RD notified of recommendations via secure text. Per MD, VEGETABLE CANNER changing order in expanse. VEGETABLE CANNER to continue to follow. Frequency/Duration: M-F Date Range for Service Req: Follow up 1-2x Timeline to reassess: Harness Cutter Clinican/Clinical Fellow: No Supervisory Statement: I have reviewed and agree with the student/clinical fellow's documentation: No Speech Language Pathologist: Roxanne Pollard M.A., [facility]-VEGETABLE CANNER
[2025-08-10 15:51] VITALS: BP 93/55; PULSE 65; RESP 16; TEMP 36.7; O2SAT 99
[2025-08-10 16:52] LABS: Glucose, Whole Blood 105 mg/dL (60-115)
[2025-08-10 19:33] VITALS: BP 96/60; PULSE 68; RESP 16; TEMP 36.2; O2SAT 98
[2025-08-10 23:45] LABS: Glucose, Whole Blood 87 mg/dL (60-115)
[2025-08-10 23:47] VITALS: BP 104/55; PULSE 65; RESP 18; TEMP 36.1; O2SAT 95
[2025-08-11] MEDS: 0.9 % Sodium Chloride Flush 3 ML SYRINGE IVFLUSH ×2 (00:34→08:52)
[2025-08-11 03:45] VITALS: BP 125/60; PULSE 60; RESP 18; TEMP 36; O2SAT 94
[2025-08-11 06:13] LABS: MANUAL DIFF FLAG NO
[2025-08-11 06:18] LABS: Hematocrit 34.8 % (37.0-47.0); Hemoglobin 11.8 g/dl (12.0-16.0); Imm Gran Abs Auto 0.04 X10*3/uL (0.00-0.03); Imm Gran Pct Auto 0.5 % (0.0-0.4); Lymphocytes Absolute Auto 2.8 X10*3/uL (1.2-4.9); Mean Corpuscular HGB Conc 33.9 g/dl (31.0-35.0); Mean Corpuscular Hemoglobin 30.8 pg (27.0-33.0); Mean Corpuscular Volume 90.9 fL (80.0-98.0); NRBC Abs Auto 0.000 X10*3/uL (0.0-0.012); NRBC Pct Auto 0.0 /100WBC (0.0-0.2); Platelet Count 255 X10*3/uL (160-400); Red Blood Count 3.83 X10*6/uL (4.20-5.50); White Blood Count 7.4 X10*3/uL (4.8-10.8)
[2025-08-11 06:25] LABS: Glucose, Whole Blood 112 mg/dL (60-115)
[2025-08-11 08:00] VITALS: BP 123/58; PULSE 62; RESP 17; TEMP 36.2; O2SAT 98
--- NOTE | 2025-08-11 10:08 | MHC.CLN ---
F/U SEEN BY PRECISION LENS GRINDER. DIET ADVANCED TO PUREE. SUPPLEMENT CHANGED TO ENSURE TID TO PROVIDE ADDITIONAL NUTRITION. SUPPLEMENT PROVIDES 1050 KCAL, 60 G PROTEIN. QUALIFIES MODERATELY MALNOURISHED. FOLLOW FOR PO INTAKE AND DIET TOLERANCE.
--- NOTE | 2025-08-11 10:23 | MHC.CM.PN ---
THIS CM UPDATED KIMO ([phone] EXT: [phone]) FROM [facility] ON TODAY'S DC WELL DDS WORKER JOHNNY ([phone]).
--- NOTE | 2025-08-11 10:35 | P.DS_ITS ---
DS: Providers Provider Date of Service: 08/11/25 Date of admission: 08/05/25 01:51 Date of discharge: 08/11/25 Primary care physician: Stef Greer MD Consults: 08/05/25 01:58 Consult to Gastroenterology Routine Consulting Provider: [facility] Reason for consultation: Coffee-ground vomiting Has provider been notified: No Attending physician on discharge: Param Velazquez Discharging clinician: Param Velazquez DS: Diagnosis Discharge Diagnosis (1) Dementia: Status: Acute (2) Rectal ulcer: Status: Acute (3) Esophagitis: Status: Acute DS: Summary Hospital Course Hospital Course: 84-year-old female with past medical history significant for PUD, dementia, prior CVA, CAD who presents to hospital with coffee-ground emesis, admitted with septic shock secondary to stercoral colitis and upper GI bleed secondary to recurrent peptic ulcer disease. Patient underwent flexible sigmoidoscopy on 08/09 finding grade D esophagitis and rectal ulcer with biopsies. PSH suggested on continuing omeprazole 10 mg b.i.d. for 2 months, and follow up with pathology reports on rectal ulcer biopsy. On day of discharge, patient states that she feels well, denies any complaints. Grade D esophagitis avoid NSAIDs Cont omeprazole 20 mg BID x 2 months total then once daily Consider barium swallow in 8 weeks and if esophagitis persistent consider escalation to PCAB Keep HOB elevated to 30 degrees while sleeping/resting Avoid laying down within 60 mins of meals Rectal ulcer s/p biopsy follow up w/ pathology reports Avoid rectal temps or suppositories Cont bowel regimen with miralax daily Constipation continue bowel regimen Malnutrition BMI 17 continue supplement with Boost TID reduce pressure with Q2H respositioning Time Attestation Discharge Coordination Time (in mins): 35 minutes Quality: Safe Use of Opioids Does Pt have an Active Cancer Diagnosis on the Problem List?: No Quality: Stroke Does the patient have a stroke diagnosis?: No Physical Exam Exam: Exam: General: AxOx1, No acute distress, frail appearing Head: AT/NC ENT: Moist mucous membranes Neck: supple CVS; RRR, S1 S2 normal Lungs: Clear bilateral breath sounds, no wheezes or crackles Abd: Soft non tender, non distended Ext: No edema and no calf tenderness MSK: moving all 4 limbs Skin: No cyanosis or edema Psych: Cooperative with exam Neurology: no focal deficit Vital Signs: Vital Signs: Last Vital Signs Temp 97.2 F 08/11/25 08:00 Pulse 62 08/11/25 08:00 Resp 17 08/11/25 08:00 BP 123/58 L 08/11/25 08:00 Pulse Ox 98 08/11/25 08:00 O2 Del Method Room Air 08/11/25 08:00 BMI result Body Mass Index 17.0 DS: Data Data Completed and Pending Completed studies during hospitalization [Text1]: Pending at discharge 08/08/25 13:32 Surgical [PTH] Routine Procedures Excision of Esophagus, Via Natural or Artificial Opening Endoscopic, Diagnostic (04/27/25) Excision of Lower Esophagus, Via Natural or Artificial Opening Endoscopic, Diagnostic (01/21/25) Excision of Stomach, Pylorus, Via Natural or Artificial Opening Endoscopic, Diagnostic (08/04/24) Extraction of Esophagus, Via Natural or Artificial Opening Endoscopic, Diagnostic (04/27/25) Insertion of Infusion Device into Left Brachial Vein, Percutaneous Approach (12/21/24) Transfusion of Nonautologous Red Blood Cells into Peripheral Vein, Percutaneous Approach (01/21/25) Labs on day of discharge: Laboratory Results - last 24 hr 08/10/25 08/10/25 08/10/25 11:09 16:48 23:40 WBC RBC Hgb Hct MCV MCH MCHC RDW Plt Count MPV Immature Gran % (Auto) Neut % (Auto) Lymph % (Auto) Hinds % (Auto) Eos % (Auto) Baso % (Auto) Lymph # (Auto) Hinds # (Auto) Eos # (Auto) Baso # (Auto) Abs Immat Gran (auto) Absolute Neuts (auto) Absolute Nucleated RBC Nucleated RBC % (auto) POC Glucose 210 H 105 87 08/11/25 08/11/25 05:41 06:22 WBC 7.4 RBC 3.83 L Hgb 11.8 L Hct 34.8 L MCV 90.9 MCH 30.8 MCHC 33.9 RDW 15.9 Plt Count 255 MPV 11.9 Immature Gran % (Auto) 0.5 H Neut % (Auto) 43.1 L Lymph % (Auto) 37.6 Hinds % (Auto) 14.1 H Eos % (Auto) 4.2 H Baso % (Auto) 0.5 Lymph # (Auto) 2.8 Hinds # (Auto) 1.1 Eos # (Auto) 0.3 Baso # (Auto) 0.0 Abs Immat Gran (auto) 0.04 H Absolute Neuts (auto) 3.2 Absolute Nucleated RBC 0.000 Nucleated RBC % (auto) 0.0 POC Glucose 112 Discharge Plan Discharge Anticipated Discharge Date/Time: 08/11/25 10:29 Patient Disposition: Home, Self-Care Discharge Diagnosis: Grade D esophagitis, Rectal ulcer, stercoral colitis Referrals: Shannon Aragon MD [Physician, Gastroenterology] - 4 Weeks Name,MD Stef [Primary Care Provider, Internal Medicine] - 1 Week Discharge Medications: Continued mirtazapine 30 mg tablet 30 mg PO BEDTIME sertraline 25 mg tablet 1 tab PO DAILY acetaminophen 500 mg tablet 500 mg PO Q6H PRN (Reason: Pain) melatonin 5 mg tablet 5 mg PO BEDTIME multivitamin Tablet 1 tab PO DAILY atorvastatin 40 mg tablet 40 mg PO DAILY amitriptyline 10 mg tablet 10 mg PO BEDTIME calcium carbonate-vitamin D3 [Oyster Shell Calcium-Vit D3] 500 mg-10 mcg (400 unit) tablet 1 tab PO BID sennosides-docusate sodium [Lax Stool Softener With Senna] 8.6-50 mg tablet 2 tab-cap PO BEDTIME 30 Days Qty: 60 3RF Changed omeprazole 40 mg capsule,delayed release(DR/EC) 20 mg PO BID 60 Days Qty: 60 0RF Discharge Orders: Discharge Order (Routine); Ordered 08/11/25 Ordered By: Param Velazquez Activity on Discharge: As tolerated Stand Alone Forms: Patient Portal Discharge page Print Language: Scottish Care Plan Goals: continue omperazole BID for two months, await pathology reports from rectal ulcer biopsy, monitor for bleeding Health Concerns: Grade D esophagitis, rectal ulcer, malnutrition Plan of Treatment: omeprazole BID for two months, follow up pathology reports for rectal ulcer, bowel regimen Assessment: 84-year-old female with past medical history significant for PUD, dementia, prior CVA, CAD who presents to hospital with coffee-ground emesis, admitted with septic shock secondary to stercoral colitis and upper GI bleed secondary to recurrent peptic ulcer disease. Patient underwent flexible sigmoidoscopy on 08/09 finding grade D esophagitis and rectal ulcer with biopsies. PSH suggested on continuing omeprazole 10 mg b.i.d. for 2 months, and follow up with pathology reports on rectal ulcer biopsy. On day of discharge, patient states that she feels well, denies any complaints. Patient Instructions: Rectal Bleeding (DC), Esophagitis (DC)
--- NOTE | 2025-08-11 10:41 | MHC.CM.PN ---
SON AWARE THAT PT IS DCD TIDAY AND WILL BE LEAVING HOSPITAL AT 3 HE WILL BE HOME WAITING FIRLINKAWARE OF PT DC
--- NOTE | 2025-08-11 11:28 | MHC.CM.PN ---
auth number [id number]
[2025-08-11 12:00] VITALS: BP 101/51; PULSE 76; RESP 16; TEMP 36.4; O2SAT 100
[2025-08-11 12:16] LABS: Glucose, Whole Blood 164 mg/dL (60-115)
--- NOTE | 2025-08-11 14:55 | MHC.SL.SWA ---
Speech Pathologist Impression: Risk of Aspiration, Oropharyngeal Dysphagia Risk of Aspiration Due to: Hx Dementia Dysphasia Diet Status: No Change Liquid Consistency and Strategies for Safe Swallow: Liquid Intake Recommendation: Thin Liquid Intake Strategies: Small Sips Solid Food Consistency: Dietary Recommendations: Pureed (NDD1) Additional Modifications to Solid Foods: Continue to recommend PUREED (NDD1) diet and THIN liquids (in the setting of GI hx gastritis and esophagitis), pills CRUSHED in PUREE. Patient will need 1:1 feeding assistance d/t underlying dementia. Notified MD, RN, RD, and PATTERN CHAIN BUILDER of reccs via secure text. Diet order has been adjusted by Dr. Velazquez. Oral Medication Intake: Crushed with Puree Please contact the pharmacy regarding appropriate crushable or liquid drug formulations that are available whenever modified delivery is recommended. Compensatory Strategies and Precautions to be Taken for Safe Swallow: Sitting Upright (90 deg) Small Bites and Sips Alternate Liquids/Solids Rate of Ingestion Change Oral Check Supervision While Eating and Drinking for Safe Swallow: Total Assistance (1:1) PER CM, PT IS DCD TODAY AND WILL BE LEAVING HOSPITAL AT 3. Blending Technician Clinican/Clinical Fellow: No Supervisory Statement: I have reviewed and agree with the student/clinical fellow's documentation: No Speech Language Pathologist: Nieves Coronado M.A., CCC-OUTDOOR [employer] TRAINER
[2025-08-11 15:34] VITALS: BP 106/52; PULSE 66; RESP 18; TEMP 36.5; O2SAT 98
[2025-08-11 15:51] VITALS: BP 139/63; PULSE 64; RESP 18; TEMP 36.4; O2SAT 96
== END 2025-08-11 16:19 | disposition home health service (06) | DRG 871 ==
LOC: HO.ED 08-05 02:01 → HO.EDOVER 08-05 02:27 → HO.IMC 08-05 16:49 → HO.S3 08-07 17:13
PROVIDERS: Hospitalist; Internal Medicine; Physician Assistant Medical; Student in an Organized Health Care Education/Training Program; Admitting Provider Internal Medicine; Emergency Provider Emergency Medicine Emergency Medical Services; PCP Internal Medicine Geriatric Medicine; Visit Provider Student in an Organized Health Care Education/Training Program
PROC: 0DJ08ZZ Inspection of Upper Intestinal Tract, Via Natural or Artificial Opening Endoscopic (ICD-10-PCS; CPT 43235; principal; 2025-08-08 12:50)
PROC: 0DJD8ZZ Inspection of Lower Intestinal Tract, Via Natural or Artificial Opening Endoscopic (ICD-10-PCS; CPT 45330; 2025-08-08 12:50)
DX: A41.9 Sepsis, unspecified organism (principal); I21.A1 Myocardial infarction type 2; K20.91 Esophagitis, unspecified with bleeding; R57.1 Hypovolemic shock; R65.21 Severe sepsis with septic shock; E87.21 Acute metabolic acidosis; K62.6 Ulcer of anus and rectum; E44.0 Moderate protein-calorie malnutrition; Z68.1 Body mass index [BMI] 19.9 or less, adult; F39 Unspecified mood [affective] disorder; K56.41 Fecal impaction; R53.81 Other malaise; K52.89 Other specified noninfective gastroenteritis and colitis; K64.4 Residual hemorrhoidal skin tags; F03.90 Unspecified dementia, unspecified severity, without behavioral disturbance, psychotic disturbance, mood disturbance, and anxiety; I25.10 Atherosclerotic heart disease of native coronary artery without angina pectoris; E78.5 Hyperlipidemia, unspecified; Z86.73 Personal history of transient ischemic attack (TIA), and cerebral infarction without residual deficits; Z87.891 Personal history of nicotine dependence; Z79.899 Other long term (current) drug therapy
CPT/HCPCS: 36415; 71260; 74018; 74177; 80048; 80053; 81003; 82947; 83036; 83605; 83735; 84484; 85025; 86850; 86900; 86901; 86920; 87040; 88305; 92526; 92610; 93005; 93306; 99285; J0696; J1836; J2003; J2470; J2704; J7120; P9016; Q9957; Q9967

== ENCOUNTER → 2025-08-04 20:33 | Outpatient (BNV) | payer OTHER, SELFPAY | PROVIDERS: Admitting Provider Internal Medicine; Emergency Provider Emergency Medicine Emergency Medical Services; Visit Provider Internal Medicine | DX: R00.0 Tachycardia, unspecified (principal) | CPT/HCPCS: 93010 ==

== ENCOUNTER → 2025-08-04 21:48 | Outpatient (BNV) | payer OTHER, SELFPAY | PROVIDERS: Emergency Provider Emergency Medicine Emergency Medical Services; Visit Provider Radiology Neuroradiology | DX: K80.20 Calculus of gallbladder without cholecystitis without obstruction (principal); R41.82 Altered mental status, unspecified; I95.9 Hypotension, unspecified | CPT/HCPCS: 71260; 74177 ==

== ENCOUNTER 2025-08-05 01:51 | Outpatient (BNV) | payer OTHER, SELFPAY | END 2025-08-07 07:00 | PROVIDERS: Admitting Provider Internal Medicine; Emergency Provider Emergency Medicine Emergency Medical Services; PCP Internal Medicine Geriatric Medicine; Visit Provider Internal Medicine Cardiovascular Disease | DX: I35.0 Nonrheumatic aortic (valve) stenosis (principal); I34.0 Nonrheumatic mitral (valve) insufficiency; I34.81 Nonrheumatic mitral (valve) annulus calcification; I51.89 Other ill-defined heart diseases | CPT/HCPCS: 93306 ==

== ENCOUNTER 2025-08-05 01:51 | Outpatient (BNV) | payer OTHER, SELFPAY | END 2025-08-07 14:13 | PROVIDERS: Admitting Provider Internal Medicine; Emergency Provider Emergency Medicine Emergency Medical Services; Visit Provider Radiology Diagnostic Radiology | DX: K59.00 Constipation, unspecified (principal) | CPT/HCPCS: 74018 ==

== ENCOUNTER → 2025-08-05 01:51 | Outpatient (BNV) | payer OTHER, SELFPAY | PROVIDERS: Admitting Provider Internal Medicine; Emergency Provider Emergency Medicine Emergency Medical Services; Visit Provider Internal Medicine | DX: K92.0 Hematemesis (principal); K22.10 Ulcer of esophagus without bleeding; F03.90 Unspecified dementia, unspecified severity, without behavioral disturbance, psychotic disturbance, mood disturbance, and anxiety; K62.89 Other specified diseases of anus and rectum | CPT/HCPCS: 99223 ==

== ENCOUNTER → 2025-08-05 01:51 | Outpatient (BNV) | payer OTHER, SELFPAY | PROVIDERS: Admitting Provider Internal Medicine; Emergency Provider Emergency Medicine Emergency Medical Services; Visit Provider Hospitalist | DX: K92.2 Gastrointestinal hemorrhage, unspecified (principal); E87.21 Acute metabolic acidosis | CPT/HCPCS: 99223; 99232; 99358 ==

== ENCOUNTER 2025-09-21 18:13 | Inpatient (IN) | payer OTHER, SELFPAY ==
--- NOTE | 2025-09-21 | ECG_ITS ---
Test Reason : ELEVATED TROPONIN Blood Pressure : */* mmHG Vent. Rate : 87 BPM Atrial Rate : 87 BPM P-R Int : 100 ms QRS Dur : 84 ms QT Int : 414 ms P-R-T Axes : 73 61 82 degrees QTcB Int : 498 ms Sinus rhythm with short SC with occasional Premature ventricular complexes and Premature atrial complexes Possible Lateral infarct , age undetermined Abnormal ECG When compared with ECG of 21-Sep-2025 18:45, Premature ventricular complexes are now Present Referred By: Xi Contreras Electronically Signed By: Chun Pritchett
--- NOTE | ~2025-09-21 | XR_ITS ---
CLINICAL HISTORY: Abdominal pain 1 view chest x-ray. Comparison: CR - XR CHEST 1V - 05/08/2025 05:27 PM EDT Findings: The patient is slightly rotated. The lungs appear clear. There is no consolidation, effusion, or pneumothorax. Cardiomediastinal silhouette is within normal limits. IMPRESSION: No acute cardiopulmonary abnormality. This document has been electronically signed by: Deshawn Lugo MD on 09/21/2025 19:47:13
--- NOTE | ~2025-09-21 | XR_ITS ---
CLINICAL HISTORY: Central Line Placement 1 view chest x-ray. Comparison: CR - XR CHEST 1V - 09/21/25 19:29 EST Findings: Right internal jugular central venous catheter in place with the distal tip projecting over the lower SVC. No consolidation, pneumothorax, or effusion. Heart size normal. Impression: 1. Right internal jugular central venous catheter in place with the distal tip projecting over the lower SVC. No pneumothorax. No focal pulmonary consolidation. This document has been electronically signed by: Efra Stevenson MD on 09/22/2025 02:59:48
--- NOTE | ~2025-09-21 | CT_ITS ---
CLINICAL HISTORY: abd pain, known uti --- Additional Notes or Special Instructions: poor iv access, unwilling to get stuck again, no contrast CT abdomen and pelvis without contrast Comparison: CR/SR - XR ABDOMEN 1 VIEW (KUB) - 08/07/25 14:[address]/REG/SR - CT ABDOMEN PELVIS W IV CON - 08/04/25 22:49 EDT Findings: Mild motion artifact present. No consolidation or effusion. Minimal pericardial effusion present. Gallstones are identified within the gallbladder lumen. No CT evidence for acute cholecystitis. The solid organs are within normal limits. Nonobstructing left renal calculi are present. No radiopaque right renal calculi identified. No hydronephrosis or hydroureter. No bowel obstruction, pneumoperitoneum, or pneumatosis. There is mildly limited evaluation of the stomach on this examination related to gastric underdistention. Avwq-[id number]-[id number] rectal stool burden present with circumferential rectal wall thickening and perirectal edema. Vascular calcifications are identified within the parametrial vessels. Scattered foci of gas are identified along the peripheral margin of the bladder, suggesting emphysematous cystitis. The bladder is mildly distended with fluid. Normal appendix. No acute fracture visualized. Chronic L2 vertebral body compression deformity redemonstrated. IMPRESSION: 1. Scattered foci of gas identified of the peripheral aspect of the bladder, suggesting emphysematous cystitis. 2. Mviz-[id number]-[id number] rectal stool burden with circumferential rectal wall thickening and perirectal edema, consistent with stercoral colitis. No bowel obstruction. 3. Nonobstructing left renal calculi. No hydronephrosis. 4. Cholelithiasis. No CT evidence for acute cholecystitis. This document has been electronically signed by: Efra Stevenson MD on 09/22/2025 03:14:02
[2025-09-21 18:28] VITALS: BP 106/71; BP 84/60; PULSE 120; RESP 20; TEMP 35.9; O2SAT 100; O2SAT 97; BMI 15.7
--- NOTE | 2025-09-21 18:30 | ECG_ITS ---
Test Reason : Abdominal pain Blood Pressure : */* mmHG Vent. Rate : 118 BPM Atrial Rate : 118 BPM P-R Int : 96 ms QRS Dur : 74 ms QT Int : 348 ms P-R-T Axes : 48 19 109 degrees QTcB Int : 487 ms Sinus tachycardia with short OK with Premature atrial complexes Nonspecific ST and T wave abnormality Abnormal ECG When compared with ECG of 04-Aug-2025 21:54, Premature atrial complexes are now Present OK interval has decreased ST now depressed in Anterior leads Nonspecific T wave abnormality now evident in Lateral leads Referred By: Scar Hoff Electronically Signed By: Chun Pritchett
--- NOTE | 2025-09-21 18:35 | ED_ITS ---
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 Hoff HPI narrative: This is a 84-year-old female PMHx PUD, dementia, CVA, CAD, upper GI bleed, who came in by EMS for a complaint of generalized malaise, abdominal pain, otherwise patient is non historian secondary to dementia. Patient in the ED is nonverbal and not answering questions. Unsuccessful attempt to contact family in the ED. History mainly was obtained from EMS and old records. Related Data Home Medications ?Medication ?Instructions ?Recorded ?Confirmed mirtazapine 30 mg tablet 30 mg PO BEDTIME 06/27/21 sertraline 25 mg tablet 1 tab PO DAILY 06/27/2110/29 amitriptyline 10 mg tablet 10 mg PO BEDTIME 01/22/25 1 10/05/24 atorvastatin 40 mg tablet 40 mg PO DAILY 01/22/2510/29 multivitamin 1 tab PO DAILY 01/22/2510/29 calcium 500 mg (as 1 tab PO BID 04/27/25 carbonate)-vitamin D3 10 mcg (400 unit) tablet (Oyster Shell Calcium-Vitamin D3) acetaminophen 500 mg tablet 500 mg PO Q6H PRN Pain 02/2608/05/25 melatonin 5 mg tablet 5 mg PO BEDTIME 08/05/2510/29 Previous Rx's ?Medication ?Instructions ?Recorded sennosides 8.6 mg-docusate sodium 2 tab-cap (2 x 8.6-5 0 mg) PO 06/01/25 50 mg tablet (Laxative Stool BEDTIME 30 days #60 tabs Softener With Senna) omeprazole 40 mg capsule,delayed 20 mg (1/2 x 40 mg) P O BID 60 days 08/11/25 release #60 caps Allergies Allergy/AdvReac Type Severity Reaction Status Date / Time No Known Allergies (NO KNOWN Allergy Unknown UNKNOWN Verified 09/21/25 18:30 ALLERGIES) Review of Systems 2 Review of Systems: Yes Unobtainable due to mental status PMFSH Past Medical History Medical History Esophagitis Systolic murmur Emphysematous cystitis Anemia Cholecystitis Weight loss Candidiasis, esophageal Nausea & vomiting Gallstones Abnormal nuclear stress test HLD (hyperlipidemia) HTN (hypertension) CVA, old, disturbances of vision (~09/2019) NSTEMI (non-ST elevated myocardial infarction) Dementia Coronary artery disease Surgical History Previous section H/O eye surgery History of esophagogastroduodenoscopy (EGD) Family History Family History Father No problems noted. Mother No problems noted. Social History Social History Household Members: Unknown / Unable to assess Housing: Apartment Are you a primary rn patient care to a significant other at home: No Do you presently have visiting nurse or other home services: No Unable to assess alcohol history related to: Unknown Alcohol intake: never Comment: 1:1 sitter Patient Tobacco Use Status: Former Tobacco user Tobacco use type: Smokeless Tobacco Years Smoked: Chews tobacco Smoked in Last 30 Days: No e-Cigarette/Vaping Use: Never Used Second Hand Smoke Exposure: No Use of substances other than those prescribed or required for medical reasons: No Advance Directives: Yes Advance Directives on File: Yes Advance Directives Date on File: 09/02/22 Do you have a plan to hurt others: No Plan service: No Current occupational status: retired and disabled 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 Physical Exam ED Vital Signs: Vital Signs - 24 hr 09/21/25 18:28 09/21/25 19:54 09/21/25 21:56 Temperature 96.6 F L 98.8 F Pulse Rate 120 H 111 H 98 Respiratory Rate 20 21 H 24 H Blood Pressure 106/71 98/59 L 123/70 Pulse Oximetry 97 95 96 Oxygen Delivery Method Room Air Room Air Room Air 09/21/25 22:00 09/21/25 22:14 09/21/25 23:56 Temperature 97.6 F 97.4 F Pulse Rate 96 95 90 Respiratory Rate 24 H 22 H 20 Blood Pressure 124/67 124/67 112/61 Pulse Oximetry 97 96 99 Oxygen Delivery Method Room Air Room Air Room Air 09/22/25 00:21 09/22/25 02:00 Temperature Pulse Rate 84 89 Respiratory Rate 17 15 Blood Pressure 103/61 100/56 L Pulse Oximetry 99 98 Oxygen Delivery Method Room Air Room Air BMI result Body Mass Index 15.7 Vital signs have been reviewed and appear to be correct. Blood pressure elevated. Heart rate normal. Respiratory rate normal. Temperature normal. Oxygen saturation normal. Appearance: Nonverbal, No acute distress. Head: Normal external exam. Normocephalic. Atraumatic. No [place] signs noted. No raccoon eyes noted Eyes: PERRLA. EOMI. Conjunctiva and sclera normal. Eyelids normal. ENT: TM's Normal. Pharynx normal. Uvula midline. Moist mucous membranes. No trismus noted. No drooling noted. No muffled voice noted. Neck: Normal inspection. Neck supple. FROM. No adenopathy. Thyroid Normal. No meningeal signs. No neck mass noted. CVS: Normal heart rate and rhythm. Heart sound normal. No murmurs noted. Pulses normal throughout. Respiratory: No respiratory distress. Painless inspiration. Breath sounds normal. No wheezes/rales/rhonchi noted. Chest nontender. No accessory muscle usage noted or decreased air movement noted. Abdomen: Soft, right lower quadrant abdominal tenderness, no rebound tenderness, no guarding. Bowel sounds normal in all 4 quadrants. No distention noted. No organomegaly noted. No visible injury noted. Rectal exam: Rectal vault is fall off hard stool, disimpaction was successfully done during the exam. Back: No CVA tenderness. Full range of motion noted. Skin: Skin warm and dry. Normal skin color. Normal skin turgor. No rashes/lesions/lacerations noted. Extremities: No lower extremity edema. Extremities exhibit normal range of motion. Extremities nontender. Neuro: Nonverbal Cranial nerve exam: II-XII are grossly intact No motor deficit. No sensory deficit. Reflexes normal. Course Reevaluation(s) Reevaluation #1: Infection is suspected now in sepsis protocol was activated, patient is receiving 1 L of LR, and empirical dose of ceftriaxone. Severe constipation required disimpaction in the ED. Await for CT abdomen pelvis with IV contrast to rule out intra-abdominal pathology case signed out to Dr. Contreras. Time: 20:14 Medications Administered Generic Name Dose Route Start Last Admin Trade Name Freq PRN Reason Stop Dose Admin Dextrose 1,000 mls @ 125 mls/hr 09/21/25 23:45 09/22/25 00:16 D5w IVCONT 125 mls/hr .Q8H TAL Administration Discontinued Medications Generic Name Dose Route Start Last Admin Trade Name Freq PRN Reason Stop Dose Admin Acetaminophen 1,000 mg in 100 mls @ 400 mls/hr 09/21/25 18:24 09/21/25 19:18 Ofirmev IV 09/21/25 18:38 Infused ONCE ONE Infusion Lactated Ringer's 1,000 mls @ 999 mls/hr 09/21/25 20:15 09/21/25 21:51 Lr IV 09/21/25 21:15 Infused .Q1H1M TAL Infusion Ceftriaxone Sodium 1 gm/ 50 mls @ 100 mls/hr 09/21/25 20:11 09/21/25 20:49 Sodium Chloride IV 09/21/25 20:40 Infused ONCE ONE Infusion Procedures Central Line Placement Right IJ: Time Out Performed: Yes Patient Placed on Monitor/Pulse Ox: Yes MD Prep: mask, gown and gloves Central Line Prep: Chlorhexidine scrub Local Anesthetic: lidocaine 1% Amount of anesthesia used (mL): 5 Ultrasound Used for Placement: Yes Central Line Lumen Inserted: triple Post Procedure: sutured in place, good blood return, all ports aspirated, flushed, capped and sterile dressing applied Post Procedure X-Ray: tip of catheter in good position and no pneumothorax seen Patient Tolerated Procedure: well and no complications Complications: none Medical Decision Making Medical Decision Making [facility] Narrative: I received sign-out from my colleague Dr. Hoff. I was informed by the patient's nurse that if in trying to get labs for several hours. Patient has a very fragile IV line in her thumb. Patient is very dry and they can not get access. Patient has very poor access. We spoke with the patient's family and got consent for a central line. A right IJ was inserted. - Cat scan pending patient known to have a UTI, already received antibiotics. Prior to obtaining the labs, patient received normal saline. Now that we have the labs, sodium is 155, potassium 4.0, chloride 122. Patient's BUN 62, creatinine 1.05. Patient is very dry. Patient receiving D5W IV patient's troponin 303 Patient's sticky new shows sinus rhythm, heart rate 87, no ST segment depression or elevation, occasional PVCs, QTC 490 patient's troponin is being repeated now since we have IV access. I discussed the patient with Dr. Vickey Hoffmann from the Medicine team, patient being admitted Differential Diagnosis Differential Diagnoses: The differential diagnosis associated with the presentation includes (Pneumonia, pneumothorax, UTI, cellulitis, constipation, intra-abdominal pathology.) Admission/Observation Consideration of admission/observation: Escalation of care including admission/observation considered Lab Data MDM Lab Attestation statement: I reviewed the patient's lab results. 09/21/25 19:19 09/21/25 23:11 Labs: Lab Results 09/21/25 09/21/25 09/21/25 Range/Units 19:19 20:12 21:55 WBC 18.6 H (4.8-10.8) X10*3/uL RBC 4.57 (4.20-5.50) X10*6/uL Hgb 14.7 D (12.0-16.0) g/dl Hct 46.5 D (37.0-47.0) % MCV 101.8 H (80.0-98.0) fL MCH 32.2 (27.0-33.0) pg MCHC 31.6 (31.0-35.0) g/dl RDW 17.3 H (11.0-16.0) % Plt Count 248 (160-400) X10*3/uL MPV 12.7 H (9.4-12.3) fL Immature Gran % (Auto) 0.5 H (0.0-0.4) % Neut % (Auto) 81.4 H (45-73) % Lymph % (Auto) 10.1 L (20-40) % [place] % (Auto) 7.8 (2-11) % Eos % (Auto) 0.0 (0-4) % Baso % (Auto) 0.2 (0-2) % Lymph # (Auto) 1.9 (1.2-4.9) X10*3/uL [place] # (Auto) 1.5 H (0.1-1.2) X10*3/uL Eos # (Auto) 0.0 (0.0-0.4) X10*3/uL Baso # (Auto) 0.0 (0.0-0.2) X10*3/uL Abs Immat Gran (auto) 0.10 H (0.00-0.03) X10*3/uL Absolute Neuts (auto) 15.1 H (2.0-8.3) x10*3/uL Absolute Nucleated RBC 0.040 H (0.0-0.012) X10*3/uL Nucleated RBC % (auto) 0.2 (0.0-0.2) /100WBC Sodium (135-145) mmol/L Potassium (3.3-5.1) mmol/L Chloride (96-108) mmol/L Carbon Dioxide (22-29) mmol/L Anion Gap (12-20) BUN (9-16) mg/dL Creatinine (0.5-1.4) mg/dL Estim Creat Clear Calc Estimated GFR Random Glucose (60-115) mg/dL Lactic Acid 3.6 H* (0.5-2.0) mmol/L Lactic Acid F/U @ 2Hr 2.5 H* (0.5-2.0) mmol/L Lactic Acid F/U @ 4Hr (0.5-2.0) mmol/L Calcium (8.4-10.2) mg/dL Total Bilirubin (0.0-1.0) mg/dL Direct Bilirubin (0.0-0.5) mg/dL AST (5-31) U/L ALT (0-31) U/L Alkaline Phosphatase (39-117) U/L Troponin I High Sens (<3.5-17.0) ng/L Total Protein (6.5-8.0) g/dL Albumin (3.5-5.0) g/dL Lipase (8-78) U/L Urine Color Yellow Urine Appearance Hazy Urine pH 6.0 (5.0-9.0) Ur Specific [place] 1.025 (1.005-1.025) Urine Protein Trace (Neg-Trace) mg/dL Urine Glucose (UA) Negative (Negative) mg/dL Urine Ketones Negative (Negative) mg/dL Urine Blood Trace (Negative) Urine Nitrite Negative (Negative) Ur Leukocyte Esterase Moderate (2+) H (Negative) Urine RBC 3-5 H (0-2) /HPF Urine WBC >50 H (0-5) /HPF Ur Squamous Epith Cells 11-20 (0-2) /HPF Urine Bacteria 4+ (None Seen) Hyaline Casts 3-5 (0-2) /LPF Urine Yeast Present Influenza Type A (PCR) NEGATIVE (Negative) Influenza Type B (PCR) NEGATIVE (Negative) RSV RNA Qual (PCR) NEGATIVE (Negative) SARS-CoV-2 RNA (RT-PCR) NEGATIVE (Negative) 09/21/25 09/22/25 09/22/25 Range/Units 23:11 00:16 02:15 WBC (4.8-10.8) X10*3/uL RBC (4.20-5.50) X10*6/uL Hgb (12.0-16.0) g/dl Hct (37.0-47.0) % MCV (80.0-98.0) fL MCH (27.0-33.0) pg MCHC (31.0-35.0) g/dl RDW (11.0-16.0) % Plt Count (160-400) X10*3/uL MPV (9.4-12.3) fL Immature Gran % (Auto) (0.0-0.4) % Neut % (Auto) (45-73) % Lymph % (Auto) (20-40) % [place] % (Auto) (2-11) % Eos % (Auto) (0-4) % Baso % (Auto) (0-2) % Lymph # (Auto) (1.2-4.9) X10*3/uL [place] # (Auto) (0.1-1.2) X10*3/uL Eos # (Auto) (0.0-0.4) X10*3/uL Baso # (Auto) (0.0-0.2) X10*3/uL Abs Immat Gran (auto) (0.00-0.03) X10*3/uL Absolute Neuts (auto) (2.0-8.3) x10*3/uL Absolute Nucleated RBC (0.0-0.012) X10*3/uL Nucleated RBC % (auto) (0.0-0.2) /100WBC Sodium 155 H (135-145) mmol/L Potassium 4.0 (3.3-5.1) mmol/L Chloride 122 H (96-108) mmol/L Carbon Dioxide 23 (22-29) mmol/L Anion Gap 14 (12-20) BUN 62 H (9-16) mg/dL Creatinine 1.05 (0.5-1.4) mg/dL Estim Creat Clear Calc 22.1 Estimated GFR 50 Random Glucose 327 H (60-115) mg/dL Lactic Acid (0.5-2.0) mmol/L Lactic Acid F/U @ 2Hr (0.5-2.0) mmol/L Lactic Acid F/U @ 4Hr 1.6 (0.5-2.0) mmol/L Calcium 9.8 D (8.4-10.2) mg/dL Total Bilirubin 0.4 (0.0-1.0) mg/dL Direct Bilirubin 0.2 (0.0-0.5) mg/dL AST 40 H (5-31) U/L ALT 18 (0-31) U/L Alkaline Phosphatase 67 (39-117) U/L Troponin I High Sens 303.3 H* D 275.3 H* (<3.5-17.0) ng/L Total Protein 6.6 (6.5-8.0) g/dL Albumin 3.3 L (3.5-5.0) g/dL Lipase 19 (8-78) U/L Urine Color Urine Appearance Urine pH (5.0-9.0) Ur Specific [place] (1.005-1.025) Urine Protein (Neg-Trace) mg/dL Urine Glucose (UA) (Negative) mg/dL Urine Ketones (Negative) mg/dL Urine Blood (Negative) Urine Nitrite (Negative) Ur Leukocyte Esterase (Negative) Urine RBC (0-2) /HPF Urine WBC (0-5) /HPF Ur Squamous Epith Cells (0-2) /HPF Urine Bacteria (None Seen) Hyaline Casts (0-2) /LPF Urine Yeast Influenza Type A (PCR) (Negative) Influenza Type B (PCR) (Negative) RSV RNA Qual (PCR) (Negative) SARS-CoV-2 RNA (RT-PCR) (Negative) Independent Interpretation I performed an independent interpretation of an: Plain X-Ray (Chest: No acute intrathoracic pathology.) Radiology Impression Discussion of test interpretation with radiology: I have reviewed the radiologist's reading. Critical Care Time Critical Care Time Critical Care Time: Yes Total Critical Care Time: 70 Attestation: I have personally provided critical care time. Time includes review of lab data, radiology results, discussion with consultants, and monitoring for potential decompensation. Intervention performed as documented. Discharge Plan Discharge Clinical Impression: Constipation, Sepsis, Acute UTI, Acute hypernatremia, Dehydration Patient Disposition: Admitted As Inpatient
[2025-09-21 19:26] LABS: MANUAL DIFF FLAG NO
[2025-09-21 19:33] LABS: Hematocrit 46.5 % (37.0-47.0); Hemoglobin 14.7 g/dl (12.0-16.0); Imm Gran Abs Auto 0.10 X10*3/uL (0.00-0.03); Imm Gran Pct Auto 0.5 % (0.0-0.4); Lymphocytes Absolute Auto 1.9 X10*3/uL (1.2-4.9); Mean Corpuscular HGB Conc 31.6 g/dl (31.0-35.0); Mean Corpuscular Hemoglobin 32.2 pg (27.0-33.0); Mean Corpuscular Volume 101.8 fL (80.0-98.0); NRBC Abs Auto 0.040 X10*3/uL (0.0-0.012); NRBC Pct Auto 0.2 /100WBC (0.0-0.2); Platelet Count 248 X10*3/uL (160-400); Red Blood Count 4.57 X10*6/uL (4.20-5.50); White Blood Count 18.6 X10*3/uL (4.8-10.8)
[2025-09-21 19:54] VITALS: BP 98/59; PULSE 111; RESP 21; TEMP 37.1; O2SAT 95
--- OUTSIDE RECORDS SUMMARY | 2025-09-21 20:01 | XMS_ITS | Data Portability ---
Author Organization [employer] [facility], [facility] Address [address] [place] [address] Care Team Providers Care Oracle Database Developer Name Role Phone Unavailable Referring Provider [facility] Referring Provider Assessment Encounter Date Assessment Date Assessment LastModified by Organization Details LastModified Time 04/22/2022 04/22/2022 I have reviewed and agree with the assessment and plan as documented by the electronics engineer. I provided real-time medical direction for this [...] Note [id number] Ralf Valladares MD Main - [address] [address] 04/22/2022 14:09:54 06/10/2022 12:23:06 Pain of wrist region [id number] M25.531 Health Concerns Section Related Observation LastModified by Organization Detai ls LastModified Time None Recorded Concern Status LastModified by Organization Details LastModified Time None Recorded Advance Directives Directive None Recorded Payers Insurance Date Sequence Insurance Name Policy Number Policy Hinson Covered Member ID Hinson Member ID Guarantor Name 11/29/2023 1 [facility] [employer] - DOS PRIOR TO 2023 - DUAL ELIGIBLE (MEDICARE REPLACEMENT/ADV ANTAGE - HMO) Elisa Weaver [id number] Elisa Weaver 11/29/2023 1 [facility] [employer] - DOS ON OR AFTER 2023 - DUAL ELIGIBLE - CUSTODIAL OPTIONS AND ONE CARE (MEDICARE REPLACEMENT/ADV ANTAGE - HMO) Elisa Weaver [id number] Elisa Jaimego Notes Date Note Type Note [...] .................. ............... CRC Nursing Assessment: Comments: Per ORCHARDIST, if possible please avoid Bactrim as treatment, as member has had an BRIANNE in the past with use of this abx .................. .................. .................. .................. .................. .................. .................. ............... Forming Machine Tender Note: eval for pain after right wrist [...] family members in attendance care for pt. [facility] [place] 15 mg toradol for pain, given with some relief. elevated arm on pillow, put ice pack on wrist area with some relief. [facility] [place] to call and try and get an earlier appointment for ortho .................. .................. .................. .................. .................. .................. .................. ............... Disposition: Fulfilled Ralf Valladares MD [address] [facility],[address], [place], [address], [employer] 04/22/2022 19:27:13 OBGyn Episode No OBEpisode recorded.
[2025-09-21 20:04] LABS: Resp Syncy Virus RNA Qual PCR NEGATIVE (Negative); SARS COV2 PCR INHOUSE NEGATIVE (Negative)
[2025-09-21] MEDS: Lactated Ringers 1,000 ML 999 ML IV (20:16)
[2025-09-21 20:33] LABS: Appearance Urine Hazy; Glucose Urine UA Negative (Negative); PH 6.0 (5.0-9.0); Specific Gravity - Urine 1.025 (1.005-1.025); UMIC TRIGGER UACC YES
[2025-09-21 21:26] LABS: Reflex Lactate? Lactic Acid Added
[2025-09-21 21:26] LABS: UACC Culture Trigger YES
[2025-09-21 21:56] VITALS: BP 123/70; PULSE 98; RESP 24; O2SAT 96
[2025-09-21 22:00] VITALS: BP 124/67; PULSE 96; RESP 24; TEMP 36.4; O2SAT 97
[2025-09-21 22:14] VITALS: BP 124/67; PULSE 95; RESP 22; O2SAT 96
[2025-09-21 22:25] LABS: ~Lactic Acid-LAB USE ONLY 2.5 mmol/L (0.5-2.0)
[2025-09-21 23:33] LABS: Alanine Aminotransferase 18 U/L (0-31); Albumin Level 3.3 g/dL (3.5-5.0); Alkaline Phosphatase 67 U/L (39-117); Anion Gap 14 (12-20); Aspartate Amino Transferase 40 U/L (5-31); Blood Urea Nitrogen 62 mg/dL (9-16); Calcium 9.8 mg/dL (8.4-10.2); Carbon Dioxide 23 mmol/L (22-29); Chloride 122 mmol/L (96-108); Creatinine Clr Calc Pharmacy 22.1; Estimated Glomerular Filt Rate 50; Lipase 19 U/L (8-78); Potassium 4.0 mmol/L (3.3-5.1); Sodium 155 mmol/L (135-145); Total Protein 6.6 g/dL (6.5-8.0)
[2025-09-21 23:43] LABS: Troponin-I High Sensitivity 303.3 ng/L (<3.5-17.0)
[2025-09-21 23:56] VITALS: BP 112/61; PULSE 90; RESP 20; TEMP 36.3; O2SAT 99
[2025-09-21 23:58] LABS: Reflex Lactate? 2 Y
[2025-09-22] VITALS (12 sets, daily range): BP systolic 92–127; BP diastolic 51–61; PULSE 80–91; RESP 13–19; TEMP 36.3–36.8; O2SAT 95–99; BMI 15.7
[2025-09-22 00:35] LABS: ~Lactic Acid-LAB USE ONLY 1.6 mmol/L (0.5-2.0)
--- NOTE | 2025-09-22 01:31 | PC.NURSE ---
spoke with health care proxy Raffaele Omalley who gave consent for pt to have central line placed. when asked Omar Lyssa verified patient is still DNR at this time. MD morel
[2025-09-22 02:42] LABS: Troponin-I High Sensitivity 275.3 ng/L (<3.5-17.0)
--- NOTE | 2025-09-22 04:21 | PM.IMHP ---
History of Present Illness Date of Service: 09/22/25 Chief Complaint: Abdominal pain 84-year-old female with comorbid conditions significant for major neurocognitive disorder, upper GI bleed due to peptic ulcer disease, coronary artery disease, prior CVA, cholecystitis, and emphysematous cystitis presented via EMS for generalized malaise, abdominal pain, and foul-smelling urine. Reported symptoms included malaise, abdominal pain, and foul urine odor. No fever, vomiting, or diarrhea. In the ED: right lower quadrant abdominal tenderness, rectal vault full of hard stool requiring disimpaction. Sepsis protocol activated in the ED, the patient received 1 L of LR, which was then changed to D5W and empirical dose of ceftriaxone. Central line placed due to poor IV access. Vitals: BP 106/71?124/67, HR 84?120, Temp 96.6?98.8?F, RR 15?24, O2 sat 95?99% on room air. Diagnostic studies Pertinent abnormal labs: WBC 18.6, lactic acid 3.6 (down to 1.6 at 4hr), sodium 155, chloride 122, BUN 62, glucose 327, troponin 303 (repeat 275), AST 40, albumin 3.3, BMI 15.7. Urinalysis: moderate leukocyte esterase, >50 WBC, 4+ bacteria, yeast present. SARS-CoV-2, influenza A/B, RSV PCR: negative. EKG: sinus rhythm, HR 87, occasional PVCs, QTC 490, no ST changes. CXR post-central line: tip in good position, no pneumothorax. CT abdomen/pelvis: Scattered foci of gas identified the peripheral aspect of the bladder, suggesting emphysematous cystitis. [id number] rectal stool burden with circumferential rectal wall thickening and perirectal edema, consistent with stercoral colitis. No bowel obstruction. Nonobstructing left renal calculi. No hydronephrosis. Cholelithiasis. No CT evidence for acute cholecystitis. History obtained from the electronic medical records, the patient is non-verbal. [facility] Medical History Esophagitis Systolic murmur Emphysematous cystitis Anemia Cholecystitis Weight loss Candidiasis, esophageal Nausea & vomiting Gallstones Abnormal nuclear stress test HLD (hyperlipidemia) HTN (hypertension) CVA, old, disturbances of vision (~09/2019) NSTEMI (non-ST elevated myocardial infarction) Dementia Coronary artery disease Family History Father No problems noted. Mother No problems noted. Surgical History Previous section H/O eye surgery History of esophagogastroduodenoscopy (EGD) Social History Household Members: Unknown / Unable to assess Housing: Apartment Are you a primary day care aide to a significant other at home: No Do you presently have visiting nurse or other home services: No Unable to assess alcohol history related to: Unknown Alcohol intake: never Comment: 1:1 sitter Patient Tobacco Use Status: Former Tobacco user Tobacco use type: Smokeless Tobacco Years Smoked: Chews tobacco Smoked in Last 30 Days: No e-Cigarette/Vaping Use: Never Used Second Hand Smoke Exposure: No Use of substances other than those prescribed or required for medical reasons: No Advance Directives: Yes Advance Directives on File: Yes Advance Directives Date on File: 09/02/22 Do you have a plan to hurt others: No Plan service: No Current occupational status: retired and disabled 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 Meds Allergies Allergy/AdvReac Type Severity Reaction Status Date / Time No Known Allergies (NO KNOWN Allergy Unknown UNKNOWN Verified 09/21/25 18:30 ALLERGIES) Active Medications: Current Medications Acetaminophen (Acetaminophen 325 Mg Tablet) 650 mg PO Q6H PRN PRN Reason: Pain, Mild 1-3,fever,headache Enoxaparin Sodium (Enoxaparin Sodium 30 Mg/0.3 Ml Syringe) 30 mg SUBCUT Q24H TAL Dextrose (D5w) 1,000 mls @ 125 mls/hr IVCONT .Q8H TAL Last Admin: 09/22/25 00:16 Dose: 125 mls/hr Melatonin (Melatonin 3 Mg Tablet) 3 mg PO BEDTIME PRN PRN Reason: Insomnia Sodium Chloride (0.9 % Sodium Chloride Flush 3 Ml Syringe) 3 ml IVFLUSH QSHIFT TAL Home Medications ?Medication ?Instructions ?Recorded ?Confirmed ?Last Taken ?Type mirtazapine 30 mg tablet 30 mg PO BEDTIME 06/27/21 08/05/25 08/03/25 History sertraline 25 mg tablet 1 tab PO DAILY 06/27/21 08/05/25 08/03/25 History amitriptyline 10 mg tablet 10 mg PO BEDTIME 01/22/25 08/05/25 08/03/25 History atorvastatin 40 mg tablet 40 mg PO DAILY 01/22/25 08/05/25 08/03/25 History multivitamin 1 tab PO DAILY 01/22/25 08/05/25 08/03/25 History calcium 500 mg (as 1 tab PO BID 04/27/25 08/05/25 08/03/25 History carbonate)-vitamin D3 10 mcg (400 unit) tablet (Oyster Shell Calcium-Vitamin D3) acetaminophen 500 mg tablet 500 mg PO Q6H PRN Pain 05/09/25 08/05/25 Unknown History melatonin 5 mg tablet 5 mg PO BEDTIME 08/05/25 08/05/25 08/03/25 History Physical Exam Vital Signs and Narrative: Vital Signs: Last Vital Signs Temp 97.4 F 09/21/25 23:56 Pulse 81 09/22/25 03:02 Resp 15 09/22/25 03:02 BP 92/59 L 09/22/25 03:02 Pulse Ox 98 09/22/25 03:02 O2 Del Method Room Air 09/22/25 03:02 BMI result Body Mass Index 15.7 General: No distress, subcutaneous fat and muscle wasting over the interosseous spaces, ribs Head: Normacephalic ENT: Edentulous Cardiovascular: RRR, no murmurs Respiratory: CTAB Gastrointestinal: Soft, non distended, non tender, non guarding Extremities: No swelling Musculoskeletal: Diffuse sarcopenia Neurological: Nonverbal at baseline Skin: Dry, poor skin turgor Results Labs 09/22/25 05:31 09/22/25 05:31 Labs: Laboratory Results - last 24 hr 09/21/25 09/21/25 09/21/25 19:19 20:12 21:55 MCV 101.8 H MCH 32.2 MCHC 31.6 RDW 17.3 H Plt Count 248 MPV 12.7 H Immature Gran % (Auto) 0.5 H Neut % (Auto) 81.4 H Lymph % (Auto) 10.1 L [place] % (Auto) 7.8 Eos % (Auto) 0.0 Baso % (Auto) 0.2 Lymph # (Auto) 1.9 [place] # (Auto) 1.5 H Eos # (Auto) 0.0 Baso # (Auto) 0.0 Abs Immat Gran (auto) 0.10 H Absolute Neuts (auto) 15.1 H Absolute Nucleated RBC 0.040 H Nucleated RBC % (auto) 0.2 Anion Gap Estim Creat Clear Calc Estimated GFR Random Glucose Lactic Acid 3.6 H* Lactic Acid F/U @ 2Hr 2.5 H* Lactic Acid F/U @ 4Hr Calcium Total Bilirubin Direct Bilirubin AST ALT Alkaline Phosphatase Troponin I High Sens Total Protein Albumin Lipase Urine Color Yellow Urine Appearance Hazy Urine pH 6.0 Ur Specific [place] 1.025 Urine Protein Trace Urine Glucose (UA) Negative Urine Ketones Negative Urine Blood Trace Urine Nitrite Negative Ur Leukocyte Esterase Moderate (2+) H Urine RBC 3-5 H Urine WBC >50 H Ur Squamous Epith Cells 11-20 Urine Bacteria 4+ Hyaline Casts 3-5 Urine Yeast Present Influenza Type A (PCR) NEGATIVE Influenza Type B (PCR) NEGATIVE RSV RNA Qual (PCR) NEGATIVE SARS-CoV-2 RNA (RT-PCR) NEGATIVE 09/21/25 09/22/25 09/22/25 23:11 00:16 02:15 MCV MCH MCHC RDW Plt Count MPV Immature Gran % (Auto) Neut % (Auto) Lymph % (Auto) [place] % (Auto) Eos % (Auto) Baso % (Auto) Lymph # (Auto) [place] # (Auto) Eos # (Auto) Baso # (Auto) Abs Immat Gran (auto) Absolute Neuts (auto) Absolute Nucleated RBC Nucleated RBC % (auto) Anion Gap 14 Estim Creat Clear Calc 22.1 Estimated GFR 50 Random Glucose 327 H Lactic Acid Lactic Acid F/U @ 2Hr Lactic Acid F/U @ 4Hr 1.6 Calcium 9.8 D Total Bilirubin 0.4 Direct Bilirubin 0.2 AST 40 H ALT 18 Alkaline Phosphatase 67 Troponin I High Sens 303.3 H* D 275.3 H* Total Protein 6.6 Albumin 3.3 L Lipase 19 Urine Color Urine Appearance Urine pH Ur Specific [place] Urine Protein Urine Glucose (UA) Urine Ketones Urine Blood Urine Nitrite Ur Leukocyte Esterase Urine RBC Urine WBC Ur Squamous Epith Cells Urine Bacteria Hyaline Casts Urine Yeast Influenza Type A (PCR) Influenza Type B (PCR) RSV RNA Qual (PCR) SARS-CoV-2 RNA (RT-PCR) Assessment and Plan (1) Acute hypernatremia: Status: Acute (2) Constipation: Status: Acute Plan Elderly female with advanced dementia, multiple comorbidities, abdominal pain, and evidence of sepsis, likely secondary to complicated urinary tract infection with severe dehydration, and acute metabolic derangements. Also notable for steroal colitis/severe constipation Troponin elevation may represent demand ischemia or type 2 DC in the context of sepsis and dehydration, ECG without acute ischemic changes. 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 Free water deficit 1.7 L. The patient received 1 L LR on emergency department after serum sodium was obtained. Hyperglycemia likely secondary to acute hypernatremia IVF D5W @ 54 mm/hr, slow correction Monitoring serum sodium and renal function closely NPO Monitor strict Is&Os Monitor for signs of fluid overload Aspiration precautions Glucose POC QIDACHS whilst NPO, reassess medical necessity for continuing with initiation of a diet Severe constipation/fecal impaction/stercoral colitis; rectal vault full of hard stool, required disimpaction in the ED Mineral oil enema suppository x 1 ordered Avoid the use of osmotic laxative Type 2 myocardial injury, high sensitivity troponin (303, repeat 275), no EKG ischemia, likely demand ischemia in sepsis/dehydration context High sensitivity troponin ordered Monitor troponin and EKG Cardiology consult if further elevation or clinical concern for ACS Optimize volume status and treat underlying sepsis Medication reconciliation pending VTE: Lovenox Code status confirmed by ED care team with the patient's family Based on the patient?s acute medical needs, including ongoing management of sepsis, metabolic derangements, and need for further diagnostic evaluation and monitoring, inpatient admission is medically necessary and the patient is expected to require hospital care spanning at least two midnights. Quality Stroke Does the patient have a stroke diagnosis?: No VTE Prior VTE?: No VTE Risk Level:: Medical - moderate - high VTE Device Contraindication: Treatment Not Tolerated VTE Drug Contraindication: N/A - Med Ordered
[2025-09-22 05:46] LABS: Hematocrit 35.9 % (37.0-47.0); Hemoglobin 11.5 g/dl (12.0-16.0); Mean Corpuscular HGB Conc 32.0 g/dl (31.0-35.0); Mean Corpuscular Hemoglobin 32.8 pg (27.0-33.0); Mean Corpuscular Volume 102.3 fL (80.0-98.0); NRBC Abs Auto 0.020 X10*3/uL (0.0-0.012); NRBC Pct Auto 0.1 /100WBC (0.0-0.2); Platelet Count 186 X10*3/uL (160-400); Red Blood Count 3.51 X10*6/uL (4.20-5.50); WBC ABN SCTR FOR CBC 1
[2025-09-22 05:47] LABS: Glucose, Whole Blood 433 mg/dL (60-115)
[2025-09-22 05:49] LABS: White Blood Count 16.3 X10*3/uL (4.8-10.8)
[2025-09-22 06:10] LABS: Anion Gap 11 (12-20); Blood Urea Nitrogen 49 mg/dL (9-16); Calcium 9.4 mg/dL (8.4-10.2); Carbon Dioxide 28 mmol/L (22-29); Chloride 116 mmol/L (96-108); Creatinine Clr Calc Pharmacy 28.0; Estimated Glomerular Filt Rate > 60; Potassium 3.5 mmol/L (3.3-5.1); Sodium 151 mmol/L (135-145); Troponin-I High Sensitivity 210.4 ng/L (<3.5-17.0)
[2025-09-22 06:15] LABS: Band Neutrophils Percent 15 % (3-5); Lymphocytes Absolute Manual 2.3 X10*3/uL (1.2-4.9); Lymphocytes Percent Manual 14 % (20-40); Monocytes Absolute Manual 0.7 X10*3/uL (0.1-1.2); Monocytes Percent Manual 4 % (2-11); Neutrophils Absolute Manual 13.4 X10*3/uL (2.0-8.3); Neutrophils Percent Manual 67 % (45-73)
[2025-09-22 06:16] LABS: Macrocytosis 1+ (5-14) /OIF; RBC Morphology NOTED
[2025-09-22 08:03] LABS: Glucose, Whole Blood 328 mg/dL (60-115)
--- NOTE | 2025-09-22 08:39 | PM.EVENT ---
Event Note Date of Service: 09/22/25 Event Note: Patient seen examined at bedside this morning, ill-appearing, somnolent, nonverbal, being treated for sepsis, hypernatremia. Continues on IV fluids. Time Spent With Patient Time: Total time managing care of this patient today ____ minutes.
--- NOTE | 2025-09-22 09:32 | PC.NURSE ---
pt sleeping. Repeat POC after 10u SubQ is 320s. D5W at 54ml infusing in central line right side.
--- NOTE | 2025-09-22 11:38 | PC.NURSE ---
Assumed care of this patient at 1100, patient incontinet of urine and stool, cleaned and repositioned on hospital stretcher. IVF infusing through R triple lumen central line. Awaiting bed assignment.
[2025-09-22 11:44] LABS: Glucose, Whole Blood 120 mg/dL (60-115)
--- NOTE | 2025-09-22 13:06 | MHC.CM.PN ---
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 NO VNA IN THE HOME AT THIS TIME BUT FAMILY IS OPEN TO VNA IF NEEDED. HCP (ON FILE AND VERIFIED) JAIME ([phone]) IS AGREEABLE TO SNF IF RECOMMENDED BUT DOES NOT HAVE ANY CHOICES AT THIS TIME. IMM 09/22 DISCUSSED AND COPY PLACED IN CHART AND ORIGINAL LEFT FOR FAMILY. CASE MANAGEMENT FOLLOWING FOR DC NEEDS
--- NOTE | 2025-09-22 13:28 | PC.NURSE ---
Reached out to inpatient provider: Pt is more awake this afternoon, stating she is hungry. Did a bed side swallow eval, she did okay just multiple sips to swallow/ very effortful. Doing well with some pudding. Ordered a formal swallow eval, just wanted to let you know. Provider aware.
--- NOTE | 2025-09-22 13:29 | HO.NURTONUR ---
Addendum entered by Shonda Huddleston RN 09/22/25 22:14: 09/220 update. Seen by CATERER'S AIDE - aden thins, 1:1 feeds POC wildly flucuating, covering provider aware. D5 gtt continues @ 54. Incontinent of stool & urine multiple times during day Pt more awake/alert around 1600 x hours, ate minimal amount of food for dinner. Original Note: Pt presents to ED 09/21 w/ abd pain / weakness / dysuria. Found to be significantly impacted w/ stool, manual disimpaction done by ED provider. Work up done for cystitis and sepsis, lactic 2.5, 1.6 Trops elevated 303, 275. Na 155, D5 gtt started @ 54. Patient more awake this afternoon, stating she is hungry. Provider made aware patient will need formal CATERER'S AIDE swallow eval, ordered. Family brought in Rx scripts for med rec, pharmacy made aware / med rec in progress In hospital bed, alert to self, arousable to name. Primarily cook islander speaking. Central line placed due to poor IV access R Neck triple lumen.
--- NOTE | 2025-09-22 13:50 | PHA.MEDREC ---
Addendum entered by Karime Ozuna [facility] 09/22/25 15:48: REVIEWED BY PHARMACIST Original Note: Pharmacy Consult ? Medication Reconciliation Pharmacy has completed the medication reconciliation. Got med box list stickers from pt room; utilized that to confirm what I could on med rec; spoke with pt granddaughter and she was able to confirm pt medications. Pt has not been taking Omeprazole in ~3 weeks due to pt running out of it and having a hard time getting those refilled.
--- NOTE | 2025-09-22 15:15 | MHC.CLN ---
Addendum entered by Bee Greer, RD 09/22/25 16:10: SEEN BY TECHNICAL SPEC WITH DIET REC FOR PUREE CONSISTENCY. DIET LIBERALIZED FROM CARDIAC TO REGULAR DUE TO HX LIMITED PO/TO PROMOTE PO INTAKE. DIET RX: REGULAR, PUREE. ADDING ENSURE TID TO PROMOTE NUTRITIONAL INTAKE. SUPPLEMENT PROVIDES 1050 KCALS, 60 G PROTEIN. Original Note: NUTRITION QUALIFIES MODERATELY MALNOURISHED IN THE CONTEXT OF CHRONIC ILLNESS. SIGNIFICANT WEIGHT LOSS X 30 DAYS -10.7%. SIGNIFICANT WEIGHT LOSS X 6 MONTHS -22.5%. AMY NPO. WHEN ABLE TO ADVANCE DIET, CONSIDER ADDING SUPPLEMENT TO IMPROVE NUTRITIONAL INTAKE. FOLLOW FOR DIET ADVANCEMENT AND PO INTAKE. SEE CLINICAL NUTRITION ASSESSMENT.
--- NOTE | 2025-09-22 15:44 | PC.NURSE ---
RESTAURANT EXPEDITOR evaluation completed for pt. Rec START diet of NDD1 (puree), THIN liquids with 1:1 feeding assistance. Medications CRUSHED in puree. Per MD to start diet as patient NPO. RESTAURANT EXPEDITOR to f/u 1-2x. provider made aware by RESTAURANT EXPEDITOR
--- NOTE | 2025-09-22 15:58 | MHC.SL.SWA ---
Speech Pathologist Impression: Mild-moderate oropharyngeal and pharyngoesophageal dyspahgia Risk of Aspiration Due to: Reduced cognition/hx of dementia, extensive GI hx, advanced age Dysphasia Diet Status: Recommend START diet of NDD1 (puree), THIN liquids with 1:1 feeding assistance Liquid Consistency and Strategies for Safe Swallow: Liquid Intake Recommendation: Thin Liquid Intake Strategies: Solid Food Consistency: Dietary Recommendations: Pureed (NDD1) Additional Modifications to Solid Foods: Patient requiring encouragement for PO intake, also requires cues to swallow to increase timing of swallow Oral Medication Intake: Crushed with Puree Please contact the pharmacy regarding appropriate crushable or liquid drug formulations that are available whenever modified delivery is recommended. Compensatory Strategies and Precautions to be Taken for Safe Swallow: Sit Upright Slow feeding rate Small sips/bites Alternate liquids/solids Remain upright after meal (30 minutes) Supervision While Eating and Drinking for Safe Swallow: Total Assistance (1:1) Foods to Avoid: Swallowing Recommended Treatments: Recommendation for Speech: Inpatient Speech Therapy Comment: Patient presents with mild-moderate oropharyngeal and pharyngoesophageal dysphagia. Patient with lingual pumping prior to swallow, slow AP transit, suspected delayed swallow, requiring cues to increase timing of swallow, mild residue with puree requiring liquid wash to clear. Patient reporting odynophagia and Globus sensation with all consistencies. Medical flight surveyor used for evaluation. Patient with weak/aphonic at times vocal quality. Director Card having difficulties hearing patient d/t weak voice. Patient reporting I can't swallow. Required encouragement to accept PO. Patient with no overt s/sx of penetration/aspiration. Patient NPO pending speech evaluation. Recommend START diet of NDD1 (puree), THIN liquids with 1:1 feeding assistance. Medications CRUSHED in puree. MD, RN and RD notified of recommendations via secure chat. CLINICAL NEUROPSYCHOLOGIST to follow-up 1-2x. Frequency/Duration: M-F Daily/Follow-up 1-2x Date Range for Service Req: Timeline to reassess: Chute Builder Clinican/Clinical Fellow: No Supervisory Statement: I have reviewed and agree with the student/clinical fellow's documentation: N/A Speech Language Pathologist: Roxanne Pollard M.A., CCC-CLINICAL NEUROPSYCHOLOGIST
[2025-09-22 16:33] LABS: Glucose, Whole Blood 334 mg/dL (60-115)
[2025-09-22 21:10] LABS: Glucose, Whole Blood 47 mg/dL (60-115)
--- NOTE | 2025-09-22 21:32 | PC.NURSE ---
Informed night time covering provider Dr. Hurd POC @ HS was 47, gave amp of d50, is eating a minimal amount, on d5 gtt @ 54ml/hr. her sugars have been up and down all day. Will recheck in 15 minutes and follow up w/ provider
[2025-09-22 21:47] LABS: Glucose, Whole Blood 238 mg/dL (60-115)
[2025-09-22 22:29] LABS: Glucose, Whole Blood 209 mg/dL (60-115)
[2025-09-23 00:24] LABS: Glucose, Whole Blood 172 mg/dL (60-115)
[2025-09-23] MEDS: 0.9 % Sodium Chloride Flush 3 ML SYRINGE IVFLUSH (01:02)
[2025-09-23 03:20] VITALS: BP 107/54; PULSE 76; RESP 17; TEMP 36.6; O2SAT 99
[2025-09-23 07:21] LABS: Glucose, Whole Blood 173 mg/dL (60-115)
[2025-09-23 07:39] VITALS: BP 113/55; PULSE 89; RESP 20; TEMP 36.7
--- NOTE | 2025-09-23 08:12 | P.PNIM_ITS ---
Subjective Subjective Date of Service: 09/23/25 Interval History: Patient seen examined at bedside this morning, patient continues to be very somnolent, difficult to arouse. Review of Systems Review of Systems: Yes Unobtainable due to mental status Physical Exam 2 Exam: Exam: General: Somnolent, No acute distress, frail appearing Head: AT/NC, temporal wasting ENT: Dry mucous membranes Neck: supple CVS; RRR, S1 S2 normal Lungs: Clear bilateral breath sounds, no wheezes or crackles Abd: Soft non tender, non distended Ext: No edema and no calf tenderness MSK: moving all 4 limbs Skin: No cyanosis or edema Psych: Cooperative with exam Neurology: no focal deficit Vital Signs: Vital Signs: Last Vital Signs Temp 98.0 F 09/23/25 07:39 Pulse 89 09/23/25 07:39 Resp 20 09/23/25 07:39 BP 113/55 L 09/23/25 07:39 Pulse Ox 99 09/23/25 03:20 O2 Del Method Room Air 09/23/25 03:20 BMI result Body Mass Index 15.7 Objective Data Active Medications Acetaminophen (Acetaminophen 325 Mg Tablet) 650 mg PO Q6H PRN PRN Reason: Pain, Mild 1-3,fever,headache Amitriptyline HCl (Amitriptyline Hcl 10 Mg Tablet) 10 mg PO BEDTIME [facility] Last Admin: 09/22/25 21:56 Dose: 10 mg Documented By: DAVID Atorvastatin Calcium (Atorvastatin Calcium 40 Mg Tablet) 40 mg PO DAILY [facility] Dextrose (Dextrose 50 % 25 Gm/50 Ml Syringe) 25 gm IVPUSH Q15M PRN; Protocol PRN Reason: per Hypoglycemia Standing Ord. Last Admin: 09/22/25 21:12 Dose: 25 gm Documented By: DAVID Enoxaparin Sodium (Enoxaparin Sodium 30 Mg/0.3 Ml Syringe) 30 mg SUBCUT Q24H [facility] Last Admin: 09/23/25 05:18 Dose: 30 mg Documented By: SPENSER Glucose (Glucose Gel 15 Gm Gel..Gram.) 15 gm PO Q15M PRN; Protocol PRN Reason: per Hypoglycemia Standing Ord. Dextrose (D5w) 1,000 mls @ 54 mls/hr IVCONT .[id number] [facility] Last Admin: 09/23/25 06:20 Dose: 54 mls/hr Documented By: SPENSER Ceftriaxone Sodium 1 gm/ (Sodium Chloride) 50 mls @ 100 mls/hr IV Q24H [facility] Last Infusion: 09/22/25 08:42 Dose: Infused Documented By: CATRACHITO Insulin Human Lispro (Insulin Lispro 100 Unit/Ml 3 Ml Vial) 0 unit SUBCUT QIDACHS [facility]; Protocol Last Admin: 09/22/25 21:18 Dose: Not Given Documented By: DAVID Non-Admin Reason: No Insulin Coverage Melatonin (Melatonin 3 Mg Tablet) 3 mg PO BEDTIME PRN PRN Reason: Insomnia Metoprolol Succinate (Metoprolol Succinate Er 12.5 Mg Halftab.Er.24h) 12.5 mg PO DAILY [facility]; Protocol Mirtazapine (Mirtazapine 30 Mg Tablet) 30 mg PO BEDTIME [facility] Last Admin: 09/22/25 21:23 Dose: 30 mg Documented By: DAVID Multivitamins/Vitamin C (Multivitamin Tablet) 1 tab PO DAILY [facility] Senna/Docusate Sodium (Sennosides/Docusate Sodium Tablet) 2 tab PO BEDTIME [facility] Last Admin: 09/22/25 21:12 Dose: 2 tab Documented By: DAVID Sertraline HCl (Sertraline Hcl 25 Mg Tablet) 25 mg PO DAILY [facility] Sodium Chloride (0.9 % Sodium Chloride Flush 3 Ml Syringe) 3 ml IVFLUSH QSHIFT [facility] Last Admin: 09/23/25 01:02 Dose: 3 ml Documented By: SPENSER Labs 09/23/25 08:25 09/23/25 10:54 Labs: Laboratory Results - last 24 hr 09/22/25 09/22/25 09/22/25 11:30 16:28 21:06 POC Glucose 120 H 334 H 47 L* 09/22/25 09/22/25 09/23/25 21:40 22:24 00:20 POC Glucose 238 H 209 H 172 H 09/23/25 07:17 POC Glucose 173 H Microbiology Microbiology Results: Microbiology 09/21/25 19:19 Blood Culture - Preliminary Blood - Venous No growth after 24 hours. 09/21/25 19:19 Blood Culture - Preliminary Blood - Venous No growth after 24 hours. 09/21/25 Unknown Urine Culture - Preliminary Urine Catheterized Culture in progress. Assessment and Plan (1) Dementia: Status: Acute (2) Acute hypernatremia: Status: Acute (3) Acute UTI: Status: Acute Plan Elderly female with advanced dementia, multiple comorbidities, abdominal pain, and evidence of sepsis, likely secondary to complicated urinary tract infection with severe dehydration, and acute metabolic derangements. Also notable for steroal colitis/severe constipation Troponin elevation may represent demand ischemia or type 2 MT in the context of sepsis and dehydration, ECG without acute ischemic changes. Suspected acute cystitis associated with severe sepsis Toxic metabolic encephalopathy likely multifactorial in setting of UTI and hypernatremia Initiate D5/LR Continue IV ceftriaxone Urine and blood cultures pending, will adjust meds accordingly Continuous cardiac monitoring Hypernatremia, likely secondary to decreased PO intake in setting of encephalopathy and dementia Continue D5/LR Nephrology consulted Monitoring serum sodium and renal function closely Monitor strict Is&Os Monitor for signs of fluid overload Aspiration precautions Glucose POC QIDACHS whilst NPO, reassess medical necessity for continuing with initiation of a diet Severe constipation/fecal impaction/stercoral colitis; rectal vault full of hard stool, required disimpaction in the ED Mineral oil enema suppository x 1 ordered Avoid the use of osmotic laxative Type 2 myocardial injury, high sensitivity troponin (303, repeat 275), no EKG ischemia, likely demand ischemia in sepsis/dehydration context High sensitivity troponin ordered Monitor troponin and EKG Cardiology consult if further elevation or clinical concern for ACS Optimize volume status and treat underlying sepsis Total time managing care of this patient today: 45 minutes. Quality Stroke Does the patient have a stroke diagnosis?: No VTE Prior VTE?: No VTE Risk Level:: Medical - moderate - high VTE Device Contraindication: Treatment Not Tolerated VTE Drug Contraindication: N/A - Med Ordered
[2025-09-23] MEDS: Metoprolol Succinate ER 12.5 MG HALFTAB.ER.24H PO (08:27)
[2025-09-23 09:27] LABS: Hematocrit 35.5 % (37.0-47.0); Hemoglobin 11.6 g/dl (12.0-16.0); Mean Corpuscular HGB Conc 32.7 g/dl (31.0-35.0); Mean Corpuscular Hemoglobin 33.3 pg (27.0-33.0); Mean Corpuscular Volume 102.0 fL (80.0-98.0); NRBC Abs Auto 0.020 X10*3/uL (0.0-0.012); NRBC Pct Auto 0.1 /100WBC (0.0-0.2); Platelet Count 150 X10*3/uL (160-400); Red Blood Count 3.48 X10*6/uL (4.20-5.50); White Blood Count 14.7 X10*3/uL (4.8-10.8)
[2025-09-23 11:05] LABS: Glucose, Whole Blood 81 mg/dL (60-115)
[2025-09-23 11:08] VITALS: BP 105/55; PULSE 87; RESP 20; TEMP 36.6; O2SAT 97
[2025-09-23 11:29] LABS: Anion Gap 13 (12-20); Blood Urea Nitrogen 22 mg/dL (9-16); Calcium 9.3 mg/dL (8.4-10.2); Carbon Dioxide 27 mmol/L (22-29); Chloride 114 mmol/L (96-108); Creatinine Clr Calc Pharmacy 40.8; Estimated Glomerular Filt Rate > 60; Potassium 3.0 mmol/L (3.3-5.1); Sodium 151 mmol/L (135-145)
[2025-09-23] MEDS: Dextrose 5 % and Lactated Ring 1,000 ML 50 ML IVCONT (13:44)
[2025-09-23] MEDS: Potassium Chloride Packet 20 MEQ PACKET 40 MEQ PO (13:44)
[2025-09-23 15:50] VITALS: BP 105/62; PULSE 83; RESP 18; TEMP 36.2; O2SAT 99
[2025-09-23 16:28] LABS: Glucose, Whole Blood 210 mg/dL (60-115)
[2025-09-23 19:25] VITALS: BP 114/67; PULSE 75; RESP 18; TEMP 36.4; O2SAT 98
[2025-09-23 20:30] LABS: Glucose, Whole Blood 65 mg/dL (60-115)
[2025-09-23 22:04] LABS: Glucose, Whole Blood 227 mg/dL (60-115)
[2025-09-23 23:29] VITALS: BP 111/56; PULSE 77; RESP 18; TEMP 36.6; O2SAT 98
[2025-09-24 03:01] VITALS: BP 104/52; PULSE 76; RESP 18; TEMP 36.4; O2SAT 95
[2025-09-24 07:16] LABS: Glucose, Whole Blood 139 mg/dL (60-115)
[2025-09-24 07:27] VITALS: BP 120/57; PULSE 83; RESP 20; TEMP 36.6; O2SAT 95
[2025-09-24] MEDS: Metoprolol Succinate ER 12.5 MG HALFTAB.ER.24H PO (07:55)
[2025-09-24] MEDS: Dextrose 5 % and Lactated Ring 1,000 ML 50 ML IVCONT (07:56)
--- NOTE | 2025-09-24 08:50 | HO.PM.IMPN ---
Subjective Subjective Date of Service: 09/24/25 Interval History: Patient seen examined at bedside this morning, in no acute respiratory distress, patient more alert today, with urine culture growing Klebsiella. Patient also mentioned that she is feeling pain in bilateral eyes Review of Systems Review of Systems: Yes all other systems are reviewed and are negative Physical Exam Exam: Exam: General: Alertx1 No acute distress, frail appearing Head: AT/NC, temporal wasting ENT: Dry mucous membranes Neck: supple CVS; RRR, S1 S2 normal Lungs: Clear bilateral breath sounds, no wheezes or crackles Abd: Soft non tender, non distended Ext: No edema and no calf tenderness MSK: moving all 4 limbs Skin: No cyanosis or edema Psych: Cooperative with exam Neurology: no focal deficit Vital Signs: Vital Signs: Last Vital Signs Temp 97.9 F 09/24/25 07:27 Pulse 83 09/24/25 07:27 Resp 20 09/24/25 07:27 BP 120/57 L 09/24/25 07:27 Pulse Ox 95 09/24/25 07:27 O2 Del Method Room Air 09/24/25 07:27 BMI result Body Mass Index 15.7 Objective Data Active Medications Acetaminophen (Acetaminophen 325 Mg Tablet) 650 mg PO Q6H PRN PRN Reason: Pain, Mild 1-3,fever,headache Last Admin: 09/24/25 07:55 Dose: 650 mg Documented By: MOUSTAPHA Amitriptyline HCl (Amitriptyline Hcl 10 Mg Tablet) 10 mg PO BEDTIME [facility] Last Admin: 09/23/25 19:59 Dose: 10 mg Documented By: DMITRY Atorvastatin Calcium (Atorvastatin Calcium 40 Mg Tablet) 40 mg PO DAILY [facility] Last Admin: 09/24/25 07:55 Dose: 40 mg Documented By: MOUSTAPHA Dextrose (Dextrose 50 % 25 Gm/50 Ml Syringe) 25 gm IVPUSH Q15M PRN; Protocol PRN Reason: per Hypoglycemia Standing Ord. Last Admin: 09/23/25 20:35 Dose: 25 gm Documented By: DMITRY Enoxaparin Sodium (Enoxaparin Sodium 30 Mg/0.3 Ml Syringe) 30 mg SUBCUT Q24H [facility] Last Admin: 09/24/25 04:52 Dose: 30 mg Documented By: DMITRY Glucose (Glucose Gel 15 Gm Gel..Gram.) 15 gm PO Q15M PRN; Protocol PRN Reason: per Hypoglycemia Standing Ord. Ceftriaxone Sodium 1 gm/ (Sodium Chloride) 50 mls @ 100 mls/hr IV Q24H [facility] Last Infusion: 09/24/25 08:33 Dose: Infused Documented By: MOUSTAPHA Dextrose/Lactated Ringer's (D5lr) 1,000 mls @ 50 mls/hr IVCONT .Q20H [facility] Last Admin: 09/24/25 07:56 Dose: 50 mls/hr Documented By: MOUSTAPHA Insulin Human Lispro (Insulin Lispro 100 Unit/Ml 3 Ml Vial) 0 unit SUBCUT QIDACHS [facility]; Protocol Last Admin: 09/24/25 07:18 Dose: Not Given Documented By: MOUSTAPHA Non-Admin Reason: No Insulin Coverage Melatonin (Melatonin 3 Mg Tablet) 3 mg PO BEDTIME PRN PRN Reason: Insomnia Metoprolol Succinate (Metoprolol Succinate Er 12.5 Mg Halftab.Er.24h) 12.5 mg PO DAILY [facility]; Protocol Last Admin: 09/24/25 07:55 Dose: 12.5 mg Documented By: MOUSTAPHA Mirtazapine (Mirtazapine 30 Mg Tablet) 30 mg PO BEDTIME [facility] Last Admin: 09/23/25 19:59 Dose: 30 mg Documented By: DMITRY Multivitamins/Vitamin C (Multivitamin Tablet) 1 tab PO DAILY [facility] Last Admin: 09/24/25 07:55 Dose: 1 tab Documented By: MOUSTAPHA Senna/Docusate Sodium (Sennosides/Docusate Sodium Tablet) 2 tab PO BEDTIME [facility] Last Admin: 09/23/25 19:58 Dose: 2 tab Documented By: DMITRY Sertraline HCl (Sertraline Hcl 25 Mg Tablet) 25 mg PO DAILY [facility] Last Admin: 09/24/25 07:55 Dose: 25 mg Documented By: MOUSTAPHA Sodium Chloride (0.9 % Sodium Chloride Flush 3 Ml Syringe) 3 ml IVFLUSH QSHIFT [facility] Last Admin: 09/24/25 07:56 Dose: Not Given Documented By: MOUSTAPHA Non-Admin Reason: IV Running Labs 09/23/25 08:25 09/24/25 07:55 Labs: Laboratory Results - last 24 hr 09/23/25 09/23/25 09/23/25 08:25 10:54 11:00 MCV 102.0 H MCH 33.3 H MCHC 32.7 RDW 16.3 H Plt Count 150 L MPV 13.0 H Absolute Nucleated RBC 0.020 H Nucleated RBC % (auto) 0.1 Hold Purple Top Anion Gap 13 Estim Creat Clear Calc 40.8 Estimated GFR > 60 POC Glucose 81 Random Glucose 75 Calcium 9.3 09/23/25 09/23/25 09/23/25 16:24 20:26 21:58 MCV MCH MCHC RDW Plt Count MPV Absolute Nucleated RBC Nucleated RBC % (auto) Hold Purple Top Anion Gap Estim Creat Clear Calc Estimated GFR POC Glucose 210 H 65 227 H Random Glucose Calcium 09/24/25 09/24/25 07:03 07:55 MCV MCH MCHC RDW Plt Count MPV Absolute Nucleated RBC Nucleated RBC % (auto) Hold Purple Top SEE NOTE Anion Gap Estim Creat Clear Calc Estimated GFR POC Glucose 139 H Random Glucose Calcium Microbiology Microbiology Results: Microbiology 09/21/25 Unknown Urine Culture - Final Urine Catheterized Klebsiella pneumoniae 09/21/25 19:19 Blood Culture - Preliminary Blood - Venous No growth after 48 hours. 09/21/25 19:19 Blood Culture - Preliminary Blood - Venous No growth after 48 hours. Assessment and Plan (1) Dementia: Status: Acute (2) Acute hypernatremia: Status: Acute (3) Acute UTI: Status: Acute Plan Elderly female with advanced dementia, multiple comorbidities, abdominal pain, and evidence of sepsis, likely secondary to complicated urinary tract infection with severe dehydration, and acute metabolic derangements. Also notable for steroal colitis/severe constipation Troponin elevation may represent demand ischemia or type 2 DE in the context of sepsis and dehydration, ECG without acute ischemic changes. Acute cystitis associated with severe sepsis Toxic metabolic encephalopathy likely multifactorial in setting of UTI and hypernatremia, improving Continue D5/LR Continue IV ceftriaxone Urine culture positive for E. Coli Blood cultures pending, will adjust meds accordingly Continuous cardiac monitoring Hypernatremia, likely secondary to decreased PO intake in setting of encephalopathy and dementia Continue D5/LR Nephrology consulted Monitoring serum sodium and renal function closely Monitor strict Is&Os Monitor for signs of fluid overload Aspiration precautions Glucose POC QIDACHS whilst NPO, reassess medical necessity for continuing with initiation of a diet Severe constipation/fecal impaction/stercoral colitis; rectal vault full of hard stool, required disimpaction in the ED Mineral oil enema suppository x 1 ordered Avoid the use of osmotic laxative Type 2 myocardial injury, high sensitivity troponin (303, repeat 275), no EKG ischemia, likely demand ischemia in sepsis/dehydration context High sensitivity troponin ordered Monitor troponin and EKG Cardiology consult if further elevation or clinical concern for ACS Optimize volume status and treat underlying sepsis Total time managing care of this patient today: 45 minutes. Quality Stroke Does the patient have a stroke diagnosis?: No VTE Prior VTE?: No VTE Risk Level:: Medical - moderate - high VTE Device Contraindication: Treatment Not Tolerated VTE Drug Contraindication: N/A - Med Ordered
[2025-09-24 08:54] LABS: Anion Gap 12 (12-20); Blood Urea Nitrogen 13 mg/dL (9-16); Calcium 9.2 mg/dL (8.4-10.2); Carbon Dioxide 25 mmol/L (22-29); Chloride 115 mmol/L (96-108); Creatinine Clr Calc Pharmacy 44.7; Estimated Glomerular Filt Rate > 60; Potassium 4.1 mmol/L (3.3-5.1); Sodium 148 mmol/L (135-145)
[2025-09-24 11:04] VITALS: BP 109/54; PULSE 73; RESP 20; TEMP 36.6; O2SAT 98
[2025-09-24 11:24] LABS: Glucose, Whole Blood 172 mg/dL (60-115)
[2025-09-24 15:25] LABS: Glucose, Whole Blood 114 mg/dL (60-115)
[2025-09-24 16:00] VITALS: BP 98/54; PULSE 78; RESP 20; TEMP 36.7; O2SAT 97
[2025-09-24 19:23] VITALS: BP 96/53; PULSE 74; RESP 16; TEMP 36.7; O2SAT 98
[2025-09-24] MEDS: Dextrose 5 % and Lactated Ring 1,000 ML 100 ML IVCONT (19:40)
[2025-09-24 21:01] LABS: Glucose, Whole Blood 187 mg/dL (60-115)
[2025-09-24 23:25] VITALS: BP 119/58; PULSE 73; RESP 16; TEMP 36.5; O2SAT 100
[2025-09-25] VITALS (7 sets, daily range): BP systolic 90–112; BP diastolic 46–62; PULSE 77–98; RESP 16–18; TEMP 35.9–37.1; O2SAT 94–100
[2025-09-25] MEDS: Dextrose 5 % and Lactated Ring 1,000 ML 100 ML IVCONT (04:42)
[2025-09-25 07:27] LABS: Glucose, Whole Blood 90 mg/dL (60-115)
--- NOTE | 2025-09-25 08:23 | HO.PM.IMPN ---
Subjective Subjective Date of Service: 09/25/25 Interval History: Patient seen examined at bedside this morning, resting comfortably in bed, this time mildly waking up to stimuli, we will fall back asleep. Denies any complaints. No concerns voiced by the nursing staff. Review of Systems Review of Systems: Yes Unobtainable due to mental status Physical Exam Exam: Exam: General: somnolentx1 No acute distress, frail appearing Head: AT/NC, temporal wasting ENT: Dry mucous membranes Neck: supple CVS; RRR, S1 S2 normal Lungs: Clear bilateral breath sounds, no wheezes or crackles Abd: Soft non tender, non distended Ext: No edema and no calf tenderness MSK: moving all 4 limbs Skin: No cyanosis or edema Psych: Cooperative with exam Neurology: no focal deficit Vital Signs: Vital Signs: Last Vital Signs Temp 96.7 F L 09/25/25 07:36 Pulse 82 09/25/25 07:36 Resp 16 09/25/25 07:36 BP 98/50 L 09/25/25 07:36 Pulse Ox 100 09/25/25 07:36 O2 Del Method Room Air 09/25/25 07:36 BMI result Body Mass Index 15.7 Objective Data Active Medications Acetaminophen (Acetaminophen 325 Mg Tablet) 650 mg PO Q6H PRN PRN Reason: Pain, Mild 1-3,fever,headache Last Admin: 09/24/25 19:41 Dose: 650 mg Documented By: DMITRY Amitriptyline HCl (Amitriptyline Hcl 10 Mg Tablet) 10 mg PO BEDTIME [facility] Last Admin: 09/24/25 19:41 Dose: 10 mg Documented By: DMITRY Atorvastatin Calcium (Atorvastatin Calcium 40 Mg Tablet) 40 mg PO DAILY [facility] Last Admin: 09/24/25 07:55 Dose: 40 mg Documented By: MOUSTAPHA Dextrose (Dextrose 50 % 25 Gm/50 Ml Syringe) 25 gm IVPUSH Q15M PRN; Protocol PRN Reason: per Hypoglycemia Standing Ord. Last Admin: 09/23/25 20:35 Dose: 25 gm Documented By: DMITRY Enoxaparin Sodium (Enoxaparin Sodium 40 Mg/0.4 Ml Syringe) 40 mg SUBCUT Q24H [facility] Last Admin: 09/25/25 04:43 Dose: 40 mg Documented By: DMITRY Glucose (Glucose Gel 15 Gm Gel..Gram.) 15 gm PO Q15M PRN; Protocol PRN Reason: per Hypoglycemia Standing Ord. Ceftriaxone Sodium 1 gm/ (Sodium Chloride) 50 mls @ 100 mls/hr IV Q24H [facility] Last Infusion: 09/24/25 08:33 Dose: Infused Documented By: MOUSTAPHA Dextrose/Lactated Ringer's (D5lr) 1,000 mls @ 100 mls/hr IVCONT .Q10H [facility] Last Admin: 09/25/25 04:42 Dose: 100 mls/hr Documented By: DMITRY Insulin Human Lispro (Insulin Lispro 100 Unit/Ml 3 Ml Vial) 0 unit SUBCUT QIDACHS [facility]; Protocol Last Admin: 09/24/25 21:06 Dose: 2 unit Documented By: DMITRY Melatonin (Melatonin 3 Mg Tablet) 3 mg PO BEDTIME PRN PRN Reason: Insomnia Metoprolol Succinate (Metoprolol Succinate Er 12.5 Mg Halftab.Er.24h) 12.5 mg PO DAILY [facility]; Protocol Last Admin: 09/24/25 07:55 Dose: 12.5 mg Documented By: MOUSTAPHA Mirtazapine (Mirtazapine 30 Mg Tablet) 30 mg PO BEDTIME [facility] Last Admin: 09/24/25 19:41 Dose: 30 mg Documented By: DMITRY Multivitamins/Vitamin C (Multivitamin Tablet) 1 tab PO DAILY [facility] Last Admin: 09/24/25 07:55 Dose: 1 tab Documented By: MOUSTAPHA Senna/Docusate Sodium (Sennosides/Docusate Sodium Tablet) 2 tab PO BEDTIME [facility] Last Admin: 09/24/25 19:41 Dose: 2 tab Documented By: DMITRY Sertraline HCl (Sertraline Hcl 25 Mg Tablet) 25 mg PO DAILY [facility] Last Admin: 09/24/25 07:55 Dose: 25 mg Documented By: MOUSTAPHA Sodium Chloride (0.9 % Sodium Chloride Flush 3 Ml Syringe) 3 ml IVFLUSH QSHIFT [facility] Last Admin: 09/25/25 01:13 Dose: Not Given Documented By: DMITRY Non-Admin Reason: Previously Administered Labs 09/23/25 08:25 09/24/25 07:55 Labs: Laboratory Results - last 24 hr 09/24/25 09/24/25 09/24/25 07:55 11:19 15:20 Anion Gap 12 Estim Creat Clear Calc 44.7 Estimated GFR > 60 POC Glucose 172 H 114 Random Glucose 146 H Calcium 9.2 09/24/25 09/25/25 20:46 07:15 Anion Gap Estim Creat Clear Calc Estimated GFR POC Glucose 187 H 90 Random Glucose Calcium Microbiology Microbiology Results: Microbiology 09/21/25 Unknown Urine Culture - Final Urine Catheterized Klebsiella pneumoniae Assessment and Plan (1) Dementia: Status: Acute (2) Acute hypernatremia: Status: Acute (3) Acute UTI: Status: Acute Plan Elderly female with advanced dementia, multiple comorbidities, abdominal pain, and evidence of sepsis, likely secondary to complicated urinary tract infection with severe dehydration, and acute metabolic derangements. Also notable for steroal colitis/severe constipation Troponin elevation may represent demand ischemia or type 2 [place] in the context of sepsis and dehydration, ECG without acute ischemic changes. Acute cystitis associated with severe sepsis Toxic metabolic encephalopathy likely multifactorial in setting of UTI and hypernatremia, improving Continue D5/LR Continue IV ceftriaxone Urine culture positive for E. Coli Blood cultures pending, will adjust meds accordingly Continuous cardiac monitoring Hypernatremia, likely secondary to decreased PO intake in setting of encephalopathy and dementia Continue D5/LR Nephrology consulted Monitoring serum sodium and renal function closely Monitor strict Is&Os Monitor for signs of fluid overload Aspiration precautions Glucose POC QIDACHS whilst NPO, reassess medical necessity for continuing with initiation of a diet Severe constipation/fecal impaction/stercoral colitis; rectal vault full of hard stool, required disimpaction in the ED Mineral oil enema suppository x 1 ordered Avoid the use of osmotic laxative Protein calorie-malnutrition -continue per dietary recs Type 2 myocardial injury, high sensitivity troponin (303, repeat 275), no EKG ischemia, likely demand ischemia in sepsis/dehydration context High sensitivity troponin ordered Monitor troponin and EKG Cardiology consult if further elevation or clinical concern for ACS Optimize volume status and treat underlying sepsis Total time managing care of this patient today: 45 minutes. Quality Stroke Does the patient have a stroke diagnosis?: No VTE Prior VTE?: No VTE Risk Level:: Medical - moderate - high VTE Device Contraindication: Treatment Not Tolerated VTE Drug Contraindication: N/A - Med Ordered
[2025-09-25] MEDS: 0.9 % Sodium Chloride Flush 3 ML SYRINGE IVFLUSH (08:59)
[2025-09-25] MEDS: Metoprolol Succinate ER 12.5 MG HALFTAB.ER.24H PO (08:59)
[2025-09-25 09:53] LABS: Blood Urea Nitrogen 6 mg/dL (9-16); Calcium 8.4 mg/dL (8.4-10.2); Creatinine Clr Calc Pharmacy 54.1; Estimated Glomerular Filt Rate > 60
[2025-09-25 10:16] LABS: Anion Gap 8 (12-20); Carbon Dioxide 27 mmol/L (22-29); Chloride 109 mmol/L (96-108); Potassium 3.2 mmol/L (3.3-5.1); Sodium 141 mmol/L (135-145)
--- NOTE | 2025-09-25 10:28 | MHC.CM.PN ---
Per ROUNDS, Patient is not yet medically cleared for dc (IVF & PT EVAL needed).
--- NOTE | 2025-09-25 10:55 | P.CDIM_ITS ---
PROVIDER RESPONSE TEXT: To clarify, the appropriate diagnosis supported by the clinical indicators: Severe protein calorie malnutrition QUERY TEXT: PHYSICIAN'S DOCUMENTATION REQUEST Date of Query: 09/25/2025 10:44 AM EST Patient Name: Elisa Weaver Admit Date: 09/22/2025 Dear Param Velazquez MD, A review of the medical record indicates additional documentation may be needed. Please review below and update the documentation accordingly. Clinical Indicators: Height: ( ) 4'11 Weight: ( ) 35.2 kg BMI: ( ) 15.7 Other Clinical Notes Supporting Significance of the BMI: per RD, BMI < 19.0 Malnourished, unplanned weight loss on therapeutic diet If possible, please provide an associated diagnosis related to the abnormal BMI, such as: Underweight Weight loss Cachexia Anorexia Severe protein calorie malnutrition Other (explain) Clinically unable to determine (explain) Thank you, Clotilde Guillen RN Use of terms such as suspected, likely, concern for, or probable (associated with a specific diagnosis that is being evaluated, monitored, or treated as if it exists) are acceptable and can be coded in the inpatient setting, when documented at the time of discharge. Please use your independent medical judgment in providing your response. THIS QUERY IS PART OF THE PERMANENT MEDICAL RECORD
[2025-09-25 11:31] LABS: Glucose, Whole Blood 169 mg/dL (60-115)
--- NOTE | 2025-09-25 11:32 | MHC.CLN ---
F/U PT IS MODERATELY MALNOURISHED SEE FULL ASSESSMENT DATED 09/22/25 PO INTAKE VARIABLE RANGING FROM 25-75% DIET ADVANCED TO PUREED PER RESERVATION CLERK PT RECEIVING ENSURE TID PROVIDES 1050KCALS, 60G PROTEIN MONITOR PO INTAKE AND ENCOURAGE SUPPLEMENT
--- NOTE | 2025-09-25 11:46 | HO.WOUND ---
Wound Consult: Initial 84yr old?female admitted to [facility] on 09/22/25 - See progress notes and H&P for detailed history.? Wound consult placed for Right Hip.? Patient agreeable to assessment and photo documentation.? Right Hip / Trochanter Etiology: Abrasion?? Measurements: 1cm x 0.1cm x 0.1cm Wound Bed: irregular shaped abrasion healing - redness is blanchable not consistent with pressure Drainage / Odor: None Edges: ? Well defined Renetta wound: ?Intact No Induration, Fluctuance or Warmth noted Pain: denies Goals of Treatment: ? Foam dressing to protect and allow for continued healing Right Heel Left Heel Bilateral Heels noted for intact blanchable redness - no pressure injury noted during this assessment. Recommend preventative foams to be applied - elevated off of bed surface with pillows. Recommendations: 1. Turn and Reposition every 2 hours and as needed for patient comfort.? Use pillows or wedges to support off loading positions. 2. Off Load all bony prominences with use of pillows and heel boots if needed.? Apply Preventative foams where needed. ? 3. Monitor for incontinence and moisture control, use barrier creams when needed for prevention and treatment. 4. Provide adequate and supplemental nutrition.? 5. Order low air loss mattress. 6. When applicable maintain blood glucose levels per Providers order. Right Hip / Trochanter - Cleanse with Ns pat dry. Apply foam dressing, Change every 3 days and PRN. Bilateral Heels? - Elevate heels off of bed surface with pillows.? Float heels off of pillows.? Apply skin prep allow to dry.? Apply heel foam dressings, peel back and assess Q shift and change every 3 days and PRN. Re-consult wound care Nurse for wound deterioration or wound changes.
--- NOTE | 2025-09-25 14:18 | MHC.CM.PN ---
Patient is active with [facility].
[2025-09-25] MEDS: Lactated Ringers 1,000 ML 80 ML IVCONT (15:04)
[2025-09-25 16:20] LABS: Glucose, Whole Blood 138 mg/dL (60-115)
--- NOTE | 2025-09-25 17:20 | MHC.SL.SWA ---
Speech Pathologist Impression: WFL for current consistencies Risk of Aspiration Due to: advanced age, cognition, extensive GI hx Dysphasia Diet Status: Recommend CONTINUE NDD1, THIN liquids with 1:1 feed Liquid Consistency and Strategies for Safe Swallow: Liquid Intake Recommendation: Thin Liquid Intake Strategies: Solid Food Consistency: Dietary Recommendations: Pureed (NDD1) Additional Modifications to Solid Foods: Oral Medication Intake: Crushed with Puree Please contact the pharmacy regarding appropriate crushable or liquid drug formulations that are available whenever modified delivery is recommended. Compensatory Strategies and Precautions to be Taken for Safe Swallow: Sitting Upright (90 deg) Double Swallow Small Bites and Sips Alternate Liquids/Solids Rate of Ingestion Change Supervision While Eating and Drinking for Safe Swallow: Total Assistance (1:1) Foods to Avoid: Swallowing Recommended Treatments: Recommendation for Speech: Inpatient Speech Therapy Comment: Patient met in room for f/u for diet tolerance. Patient given thin liquids via straw and spoonfuls of puree. senior net engineer utilized; reporting patient answering questions inappropriately and likely not understanding. Patient tolerating thin liquids via consecutive straw sips; able to hold can of rambo juanita but required assistance for straw use. Patient with no overt s/sx of penetration/aspiration. Patient at baseline per last [employer] treatments in 08/2025. Recommend CONTINUE NDD1, THIN liquids with 1:1 feeding assistance. Medications CRUSHED in puree. Patient at baseline, [employer] services at this level no longer warranted. Please re-consult if needed. MD and RN notified of discharge via secure chat. Frequency/Duration: M-F Daily/Follow-up 1-2x Date Range for Service Req: Timeline to reassess: Planning Management It Specialist Clinican/Clinical Fellow: No Supervisory Statement: I have reviewed and agree with the student/clinical fellow's documentation: N/A Speech Language Pathologist: Roxanne Pollard M.A., CCC-[employer]
[2025-09-25 21:01] LABS: Glucose, Whole Blood 96 mg/dL (60-115)
[2025-09-26 04:00] VITALS: BP 128/58; PULSE 76; RESP 16; TEMP 37.2; O2SAT 96
[2025-09-26 06:33] LABS: Anion Gap 9 (12-20); Blood Urea Nitrogen 10 mg/dL (9-16); Calcium 8.2 mg/dL (8.4-10.2); Carbon Dioxide 25 mmol/L (22-29); Chloride 111 mmol/L (96-108); Creatinine Clr Calc Pharmacy 47.4; Estimated Glomerular Filt Rate > 60; Potassium 3.6 mmol/L (3.3-5.1); Sodium 141 mmol/L (135-145)
[2025-09-26 07:13] LABS: Glucose, Whole Blood 85 mg/dL (60-115)
[2025-09-26 07:29] VITALS: BP 122/58; PULSE 69; RESP 16; TEMP 36.2; O2SAT 98
[2025-09-26] MEDS: Metoprolol Succinate ER 12.5 MG HALFTAB.ER.24H PO (08:14)
[2025-09-26] MEDS: 0.9 % Sodium Chloride Flush 3 ML SYRINGE IVFLUSH (08:15)
[2025-09-26 11:15] LABS: Glucose, Whole Blood 76 mg/dL (60-115)
--- NOTE | 2025-09-26 14:45 | HO.PM.IMPN ---
Subjective Subjective Date of Service: 09/26/25 Interval History: Somnolent but arousable. Confused Review of Systems Unable to obtain Physical Exam Vital Signs: Vital Signs: Last Vital Signs Temp 97.2 F 09/26/25 07:29 Pulse 69 09/26/25 07:29 Resp 16 09/26/25 07:29 BP 122/58 L 09/26/25 07:29 Pulse Ox 98 09/26/25 07:29 O2 Del Method BiPAP 09/26/25 04:00 BMI result Body Mass Index 15.7 Const: Other: Somnolent but arousable Resp: Other: Clear to auscultation bilaterally no rales rhonchi or wheezes Cardio: Other: No S4; positive S1-S2; no S3 murmurs rubs or gallops GI: Other: Soft nontender nondistended normoactive bowel sounds Extrem: Other: No edema bilaterally Objective Data Active Medications Acetaminophen (Acetaminophen 325 Mg Tablet) 650 mg PO Q6H PRN PRN Reason: Pain, Mild 1-3,fever,headache Last Admin: 09/26/25 02:45 Dose: 650 mg Documented By: DMITRY Amitriptyline HCl (Amitriptyline Hcl 10 Mg Tablet) 10 mg PO BEDTIME [facility] Last Admin: 09/25/25 19:41 Dose: 10 mg Documented By: DMITRY Atorvastatin Calcium (Atorvastatin Calcium 40 Mg Tablet) 40 mg PO DAILY [facility] Last Admin: 09/26/25 08:14 Dose: 40 mg Documented By: MOUSTAPHA Dextrose (Dextrose 50 % 25 Gm/50 Ml Syringe) 25 gm IVPUSH Q15M PRN; Protocol PRN Reason: per Hypoglycemia Standing Ord. Last Admin: 09/23/25 20:35 Dose: 25 gm Documented By: DMITRY Enoxaparin Sodium (Enoxaparin Sodium 40 Mg/0.4 Ml Syringe) 40 mg SUBCUT Q24H [facility] Last Admin: 09/26/25 04:49 Dose: 40 mg Documented By: DMITRY Glucose (Glucose Gel 15 Gm Gel..Gram.) 15 gm PO Q15M PRN; Protocol PRN Reason: per Hypoglycemia Standing Ord. Ceftriaxone Sodium 1 gm/ (Sodium Chloride) 50 mls @ 100 mls/hr IV Q24H [facility] Last Infusion: 09/26/25 08:58 Dose: Infused Documented By: MOUSTAPHA Insulin Human Lispro (Insulin Lispro 100 Unit/Ml 3 Ml Vial) 0 unit SUBCUT QIDACHS [facility]; Protocol Last Admin: 09/26/25 11:30 Dose: Not Given Documented By: MOUSTAPHA Non-Admin Reason: No Insulin Coverage Melatonin (Melatonin 3 Mg Tablet) 3 mg PO BEDTIME PRN PRN Reason: Insomnia Last Admin: 09/25/25 19:41 Dose: 3 mg Documented By: DMITRY Metoprolol Succinate (Metoprolol Succinate Er 12.5 Mg Halftab.Er.24h) 12.5 mg PO DAILY [facility]; Protocol Last Admin: 09/26/25 08:14 Dose: 12.5 mg Documented By: MOUSTAPHA Mirtazapine (Mirtazapine 30 Mg Tablet) 30 mg PO BEDTIME [facility] Last Admin: 09/25/25 19:41 Dose: 30 mg Documented By: DMITRY Multivitamins/Vitamin C (Multivitamin Tablet) 1 tab PO DAILY [facility] Last Admin: 09/26/25 08:15 Dose: 1 tab Documented By: MOUSTAPHA Senna/Docusate Sodium (Sennosides/Docusate Sodium Tablet) 2 tab PO BEDTIME [facility] Last Admin: 09/25/25 19:41 Dose: 2 tab Documented By: DMITRY Sertraline HCl (Sertraline Hcl 25 Mg Tablet) 25 mg PO DAILY [facility] Last Admin: 09/26/25 08:15 Dose: 25 mg Documented By: MOUSTAPHA Sodium Chloride (0.9 % Sodium Chloride Flush 3 Ml Syringe) 3 ml IVFLUSH QSHIFT [facility] Last Admin: 09/26/25 08:15 Dose: 3 ml Documented By: MOUSTAPHA Labs 09/23/25 08:25 09/26/25 06:07 Labs: Laboratory Results - last 24 hr 09/25/25 09/25/25 09/26/25 16:16 20:56 06:07 Anion Gap 9 L Estim Creat Clear Calc 47.4 Estimated GFR > 60 POC Glucose 138 H 96 Random Glucose 94 Calcium 8.2 L 09/26/25 09/26/25 07:09 11:08 Anion Gap Estim Creat Clear Calc Estimated GFR POC Glucose 85 76 Random Glucose Calcium Assessment and Plan (1) Sepsis: Status: Acute (2) Acute UTI: Status: Acute (3) Diabetes type 2: Status: Acute Plan Elderly female with advanced dementia, multiple comorbidities, abdominal pain, and evidence of sepsis, likely secondary to complicated urinary tract infection with severe dehydration, and acute metabolic derangements. Also notable for steroal colitis/severe constipation Troponin elevation may represent demand ischemia or type 2 [place] in the context of sepsis and dehydration, ECG without acute ischemic changes. 1. Klebsiella UTI/severe sepsis (severe sepsis resolved) -Continue D5/LR until adequate p.o. -ceftriaxone (5).... Switch to p.o. Ceftin when appropriate -Blood cultures negative times 48 hours 2. Diabetes type 2 -lispro correctional scale -adjust therapies as indicated 3.Hypernatremia -good response to free water repletion -Continue D5/LR until adequate p.o. -follow renals/divalents 4.Type 2 myocardial injury -resolved Quality Stroke Does the patient have a stroke diagnosis?: No VTE Prior VTE?: No VTE Risk Level:: Medical - moderate - high VTE Device Contraindication: Treatment Not Tolerated VTE Drug Contraindication: N/A - Med Ordered
[2025-09-26 15:37] VITALS: BP 123/63; PULSE 89; RESP 18; TEMP 36.8; O2SAT 95
[2025-09-26 15:44] LABS: Glucose, Whole Blood 97 mg/dL (60-115)
[2025-09-26 20:00] VITALS: BP 91/52; PULSE 91; RESP 16; TEMP 36.4; O2SAT 96
[2025-09-26 21:00] VITALS: BP 112/64
[2025-09-26 21:12] LABS: Glucose, Whole Blood 151 mg/dL (60-115)
[2025-09-26 23:13] VITALS: BP 81/49; PULSE 81; RESP 16; TEMP 36.7; O2SAT 97
[2025-09-27 03:29] VITALS: BP 101/53; PULSE 77; RESP 16; TEMP 36.7; O2SAT 96
[2025-09-27 07:20] LABS: Glucose, Whole Blood 108 mg/dL (60-115)
[2025-09-27 07:23] VITALS: BP 95/53; PULSE 80; RESP 18; TEMP 36.2; O2SAT 100
[2025-09-27] MEDS: 0.9 % Sodium Chloride Flush 3 ML SYRINGE IVFLUSH ×2 (09:52→16:59)
[2025-09-27] MEDS: Metoprolol Succinate ER 12.5 MG HALFTAB.ER.24H PO (09:56)
[2025-09-27 11:35] VITALS: BP 95/55; PULSE 87; RESP 18; TEMP 36.8; O2SAT 94
[2025-09-27 11:45] LABS: Glucose, Whole Blood 157 mg/dL (60-115)
--- NOTE | 2025-09-27 12:10 | MHC.CM.PN ---
Per PT, Patient has no carry over and cannot follow commands to actively participate with PT.
--- NOTE | 2025-09-27 12:51 | MHC.CLN ---
F/U PO INTAKE VARIABLE RANGING FROM 25-100%. DIET RX: PUREE. PT RECEIVING ENSURE TID TO PROMOTE NUTRITIONAL INTAKE. SUPPLEMENT PROVIDES 1050KCALS, 60G PROTEIN. MONITOR PO INTAKE AND ENCOURAGE SUPPLEMENT.
[2025-09-27 15:01] VITALS: BP 91/52; PULSE 86; RESP 17; TEMP 36.3; O2SAT 97
--- NOTE | 2025-09-27 16:10 | HO.PM.IMPN ---
Subjective Subjective Date of Service: 09/27/25 Interval History: Remains confused; PT attempted to evaluate however patient would not even sit up on the bed. Review of Systems Unable to obtain Physical Exam Vital Signs: Vital Signs: Last Vital Signs Temp 97.4 F 09/27/25 15:01 Pulse 86 09/27/25 15:01 Resp 17 09/27/25 15:01 BP 91/52 L 09/27/25 15:01 Pulse Ox 97 09/27/25 15:01 O2 Del Method Room Air 09/27/25 15:01 BMI result Body Mass Index 15.7 Const: Other: Somnolent but arousable Resp: Other: Clear to auscultation bilaterally no rales rhonchi or wheezes Cardio: Other: No S4; positive S1-S2; no S3 murmurs rubs or gallops GI: Other: Soft nontender nondistended normoactive bowel sounds Extrem: Other: No edema bilaterally Objective Data Active Medications Acetaminophen (Acetaminophen 325 Mg Tablet) 650 mg PO Q6H PRN PRN Reason: Pain, Mild 1-3,fever,headache Last Admin: 09/26/25 02:45 Dose: 650 mg Documented By: DMITRY Amitriptyline HCl (Amitriptyline Hcl 10 Mg Tablet) 10 mg PO BEDTIME TAL Last Admin: 09/26/25 20:18 Dose: 10 mg Documented By: TYSON Atorvastatin Calcium (Atorvastatin Calcium 40 Mg Tablet) 40 mg PO DAILY [facility] Last Admin: 09/27/25 09:56 Dose: 40 mg Documented By: MARISOL Dextrose (Dextrose 50 % 25 Gm/50 Ml Syringe) 25 gm IVPUSH Q15M PRN; Protocol PRN Reason: per Hypoglycemia Standing Ord. Last Admin: 09/23/25 20:35 Dose: 25 gm Documented By: DMITRY Enoxaparin Sodium (Enoxaparin Sodium 40 Mg/0.4 Ml Syringe) 40 mg SUBCUT Q24H [facility] Last Admin: 09/27/25 05:20 Dose: 40 mg Documented By: TYSON Glucose (Glucose Gel 15 Gm Gel..Gram.) 15 gm PO Q15M PRN; Protocol PRN Reason: per Hypoglycemia Standing Ord. Ceftriaxone Sodium 1 gm/ (Sodium Chloride) 50 mls @ 100 mls/hr IV Q24H [facility] Last Infusion: 09/27/25 11:56 Dose: Infused Documented By: MARISOL Insulin Human Lispro (Insulin Lispro 100 Unit/Ml 3 Ml Vial) 0 unit SUBCUT QIDACHS [facility]; Protocol Last Admin: 09/27/25 13:39 Dose: Not Given Documented By: MARISOL Non-Admin Reason: pt did not eat lunch Melatonin (Melatonin 3 Mg Tablet) 3 mg PO BEDTIME PRN PRN Reason: Insomnia Last Admin: 09/26/25 20:18 Dose: 3 mg Documented By: TYSON Metoprolol Succinate (Metoprolol Succinate Er 12.5 Mg Halftab.Er.24h) 12.5 mg PO DAILY [facility]; Protocol Last Admin: 09/27/25 09:56 Dose: 12.5 mg Documented By: MARISOL Mirtazapine (Mirtazapine 30 Mg Tablet) 30 mg PO BEDTIME [facility] Last Admin: 09/26/25 20:18 Dose: 30 mg Documented By: TYSON Multivitamins/Vitamin C (Multivitamin Tablet) 1 tab PO DAILY [facility] Last Admin: 09/27/25 09:56 Dose: 1 tab Documented By: MARISOL Senna/Docusate Sodium (Sennosides/Docusate Sodium Tablet) 2 tab PO BEDTIME [facility] Last Admin: 09/26/25 20:18 Dose: 2 tab Documented By: TYSON Sertraline HCl (Sertraline Hcl 25 Mg Tablet) 25 mg PO DAILY [facility] Last Admin: 09/27/25 09:56 Dose: 25 mg Documented By: MARISOL Sodium Chloride (0.9 % Sodium Chloride Flush 3 Ml Syringe) 3 ml IVFLUSH QSHIFT [facility] Last Admin: 09/27/25 09:52 Dose: 3 ml Documented By: MARISOL Labs 09/23/25 08:25 09/26/25 06:07 Labs: Laboratory Results - last 24 hr 09/26/25 09/27/25 09/27/25 21:08 07:15 11:39 POC Glucose 151 H 108 157 H Microbiology Microbiology Results: Microbiology 09/21/25 19:19 Blood Culture - Final Blood - Venous No growth after 5 days. 09/21/25 19:19 Blood Culture - Final Blood - Venous No growth after 5 days. Assessment and Plan (1) Acute UTI: Status: Acute (2) Diabetes type 2: Status: Acute Plan Elderly female with advanced dementia, multiple comorbidities, abdominal pain, and evidence of sepsis, likely secondary to complicated urinary tract infection with severe dehydration, and acute metabolic derangements. Also notable for steroal colitis/severe constipation Troponin elevation may represent demand ischemia or type 2 [place] in the context of sepsis and dehydration, ECG without acute ischemic changes. 1. Klebsiella UTI/severe sepsis (severe sepsis resolved) -Continue D5/LR until adequate p.o. -ceftriaxone (6).... Switch to p.o. Ceftin when appropriate -Blood cultures negative times 48 hours 2. Diabetes type 2 -lispro correctional scale -adjust therapies as indicated 3.Hypernatremia -good response to free water repletion -Continue D5/LR until adequate p.o. -follow renals/divalents 4.Type 2 myocardial injury -resolved Unable to cooperate with physical therapy evaluation. We will discuss disposition with family in a.m. Quality Stroke Does the patient have a stroke diagnosis?: No VTE Prior VTE?: No VTE Risk Level:: Medical - moderate - high VTE Device Contraindication: Treatment Not Tolerated VTE Drug Contraindication: N/A - Med Ordered
[2025-09-27 16:48] LABS: Glucose, Whole Blood 152 mg/dL (60-115)
[2025-09-27 19:42] VITALS: BP 103/52; PULSE 82; RESP 17; TEMP 36.3; O2SAT 97
[2025-09-27 22:58] LABS: Glucose, Whole Blood 145 mg/dL (60-115)
[2025-09-27 23:58] VITALS: BP 107/55; PULSE 71; RESP 14; TEMP 36.4; O2SAT 97
[2025-09-28 02:58] VITALS: BP 110/53; PULSE 66; RESP 16; TEMP 36.4; O2SAT 100
[2025-09-28 06:31] LABS: MANUAL DIFF FLAG NO
[2025-09-28 06:52] LABS: Alanine Aminotransferase 24 U/L (0-31); Albumin Level 2.5 g/dL (3.5-5.0); Alkaline Phosphatase 69 U/L (39-117); Anion Gap 9 (12-20); Aspartate Amino Transferase 42 U/L (5-31); Blood Urea Nitrogen 11 mg/dL (9-16); Calcium 8.2 mg/dL (8.4-10.2); Carbon Dioxide 22 mmol/L (22-29); Chloride 111 mmol/L (96-108); Creatinine Clr Calc Pharmacy 49.5; Estimated Glomerular Filt Rate > 60; Potassium 3.4 mmol/L (3.3-5.1); Sodium 139 mmol/L (135-145); Total Protein 5.3 g/dL (6.5-8.0)
[2025-09-28 07:05] LABS: Hematocrit 29.1 % (37.0-47.0); Hemoglobin 9.6 g/dl (12.0-16.0); Imm Gran Abs Auto 0.03 X10*3/uL (0.00-0.03); Imm Gran Pct Auto 0.5 % (0.0-0.4); Lymphocytes Absolute Auto 2.3 X10*3/uL (1.2-4.9); Mean Corpuscular HGB Conc 33.0 g/dl (31.0-35.0); Mean Corpuscular Hemoglobin 33.3 pg (27.0-33.0); Mean Corpuscular Volume 101.0 fL (80.0-98.0); NRBC Abs Auto 0.000 X10*3/uL (0.0-0.012); NRBC Pct Auto 0.0 /100WBC (0.0-0.2); Platelet Count 203 X10*3/uL (160-400); Red Blood Count 2.88 X10*6/uL (4.20-5.50); White Blood Count 5.6 X10*3/uL (4.8-10.8)
[2025-09-28 08:00] VITALS: BP 111/57; PULSE 76; RESP 18; TEMP 36.8; O2SAT 100
[2025-09-28] MEDS: Metoprolol Succinate ER 12.5 MG HALFTAB.ER.24H PO (09:32)
[2025-09-28] MEDS: 0.9 % Sodium Chloride Flush 3 ML SYRINGE IVFLUSH (09:33)
--- NOTE | 2025-09-28 09:37 | MHC.CM.PN ---
CM met with Patient and her family members/HCPs; they provided CM with an updated HCP. Son/Hactor is the Agent.
[2025-09-28 12:07] LABS: Glucose, Whole Blood 105 mg/dL (60-115)
[2025-09-28 12:08] LABS: Glucose, Whole Blood 140 mg/dL (60-115)
--- NOTE | 2025-09-28 13:23 | P.PNIM_ITS ---
Subjective Subjective Date of Service: 09/28/25 Interval History: Clinically unchanged since yesterday. No acute issues overnight Review of Systems Unable to obtain Physical Exam 2 Vital Signs: Vital Signs: Last Vital Signs Temp 98.3 F 09/28/25 08:00 Pulse 76 09/28/25 08:00 Resp 18 09/28/25 08:00 BP 111/57 L 09/28/25 08:00 Pulse Ox 100 09/28/25 08:00 O2 Del Method Room Air 09/28/25 08:00 BMI result Body Mass Index 15.7 Const: Other: Somnolent but arousable Resp: Other: Clear to auscultation bilaterally no rales rhonchi or wheezes Cardio: Other: No S4; positive S1-S2; no S3 murmurs rubs or gallops GI: Other: Soft nontender nondistended normoactive bowel sounds Extrem: Other: No edema bilaterally Objective Data Active Medications Acetaminophen (Acetaminophen 325 Mg Tablet) 650 mg PO Q6H PRN PRN Reason: Pain, Mild 1-3,fever,headache Last Admin: 09/27/25 19:58 Dose: 650 mg Documented By: TYSON Amitriptyline HCl (Amitriptyline Hcl 10 Mg Tablet) 10 mg PO BEDTIME TAL Last Admin: 09/27/25 19:58 Dose: 10 mg Documented By: TYSON Atorvastatin Calcium (Atorvastatin Calcium 40 Mg Tablet) 40 mg PO DAILY [facility] Last Admin: 09/28/25 09:32 Dose: 40 mg Documented By: ERICKA Dextrose (Dextrose 50 % 25 Gm/50 Ml Syringe) 25 gm IVPUSH Q15M PRN; Protocol PRN Reason: per Hypoglycemia Standing Ord. Last Admin: 09/23/25 20:35 Dose: 25 gm Documented By: DMITRY Enoxaparin Sodium (Enoxaparin Sodium 40 Mg/0.4 Ml Syringe) 40 mg SUBCUT Q24H [facility] Last Admin: 09/28/25 05:40 Dose: 40 mg Documented By: TYSON Glucose (Glucose Gel 15 Gm Gel..Gram.) 15 gm PO Q15M PRN; Protocol PRN Reason: per Hypoglycemia Standing Ord. Ceftriaxone Sodium 1 gm/ (Sodium Chloride) 50 mls @ 100 mls/hr IV Q24H [facility] Last Infusion: 09/28/25 10:03 Dose: Infused Documented By: ERICKA Insulin Human Lispro (Insulin Lispro 100 Unit/Ml 3 Ml Vial) 0 unit SUBCUT QIDACHS [facility]; Protocol Last Admin: 09/28/25 11:32 Dose: Not Given Documented By: ERICKA Non-Admin Reason: No Insulin Coverage Melatonin (Melatonin 3 Mg Tablet) 3 mg PO BEDTIME PRN PRN Reason: Insomnia Last Admin: 09/27/25 19:58 Dose: 3 mg Documented By: TYSON Metoprolol Succinate (Metoprolol Succinate Er 12.5 Mg Halftab.Er.24h) 12.5 mg PO DAILY [facility]; Protocol Last Admin: 09/28/25 09:32 Dose: 12.5 mg Documented By: ERICKA Mirtazapine (Mirtazapine 30 Mg Tablet) 30 mg PO BEDTIME [facility] Last Admin: 09/27/25 19:58 Dose: 30 mg Documented By: TYSON Multivitamins/Vitamin C (Multivitamin Tablet) 1 tab PO DAILY [facility] Last Admin: 09/28/25 09:32 Dose: 1 tab Documented By: ERICKA Senna/Docusate Sodium (Sennosides/Docusate Sodium Tablet) 2 tab PO BEDTIME [facility] Last Admin: 09/27/25 19:58 Dose: 2 tab Documented By: TYSON Sertraline HCl (Sertraline Hcl 25 Mg Tablet) 25 mg PO DAILY [facility] Last Admin: 09/28/25 09:32 Dose: 25 mg Documented By: ERICKA Sodium Chloride (0.9 % Sodium Chloride Flush 3 Ml Syringe) 3 ml IVFLUSH QSHIFT [facility] Last Admin: 09/28/25 09:33 Dose: 3 ml Documented By: ERICKA Labs 09/28/25 06:07 09/28/25 06:07 Labs: Laboratory Results - last 24 hr 09/27/25 09/27/25 09/28/25 16:39 22:55 06:07 MCV 101.0 H MCH 33.3 H MCHC 33.0 RDW 15.9 Plt Count 203 D MPV 13.2 H Immature Gran % (Auto) 0.5 H Neut % (Auto) 45.4 Lymph % (Auto) 41.3 H [place] % (Auto) 9.8 Eos % (Auto) 2.5 Baso % (Auto) 0.5 Lymph # (Auto) 2.3 [place] # (Auto) 0.6 Eos # (Auto) 0.1 Baso # (Auto) 0.0 Abs Immat Gran (auto) 0.03 Absolute Neuts (auto) 2.5 Absolute Nucleated RBC 0.000 Nucleated RBC % (auto) 0.0 Anion Gap 9 L Estim Creat Clear Calc 49.5 Estimated GFR > 60 POC Glucose 152 H 145 H Fasting Glucose 108 H Calcium 8.2 L Total Bilirubin 0.1 AST 42 H ALT 24 Alkaline Phosphatase 69 Total Protein 5.3 L Albumin 2.5 L 09/28/25 09/28/25 07:28 11:56 MCV MCH MCHC RDW Plt Count MPV Immature Gran % (Auto) Neut % (Auto) Lymph % (Auto) [place] % (Auto) Eos % (Auto) Baso % (Auto) Lymph # (Auto) [place] # (Auto) Eos # (Auto) Baso # (Auto) Abs Immat Gran (auto) Absolute Neuts (auto) Absolute Nucleated RBC Nucleated RBC % (auto) Anion Gap Estim Creat Clear Calc Estimated GFR POC Glucose 105 140 H Fasting Glucose Calcium Total Bilirubin AST ALT Alkaline Phosphatase Total Protein Albumin Assessment and Plan (1) Acute UTI: Status: Acute Plan Elderly female with advanced dementia, multiple comorbidities, abdominal pain, and evidence of sepsis, likely secondary to complicated urinary tract infection with severe dehydration, and acute metabolic derangements. Also notable for steroal colitis/severe constipation Troponin elevation may represent demand ischemia or type 2 [place] in the context of sepsis and dehydration, ECG without acute ischemic changes. 1. Klebsiella UTI/severe sepsis (severe sepsis resolved) -Continue D5/LR until adequate p.o....dc in am -complete a course of ceftriaxone -Blood cultures negative times 48 hours 2. Diabetes type 2 -lispro correctional scale -adjust therapies as indicated 3.Hypernatremia -good response to free water repletion -Continue D5/LR until adequate p.o. -follow renals/divalents 4.Type 2 myocardial injury -resolved Unable to cooperate with physical therapy evaluation. We will discuss disposition with family in a.m. Quality Stroke Does the patient have a stroke diagnosis?: No VTE Prior VTE?: No VTE Risk Level:: Medical - moderate - high VTE Device Contraindication: Treatment Not Tolerated VTE Drug Contraindication: N/A - Med Ordered
[2025-09-28 14:48] VITALS: BP 129/56; PULSE 76; RESP 18; TEMP 36.4; O2SAT 99
[2025-09-28 16:24] LABS: Glucose, Whole Blood 138 mg/dL (60-115)
[2025-09-28 20:00] VITALS: BP 121/55; PULSE 88; RESP 18; TEMP 36.7; O2SAT 95
[2025-09-28 20:50] LABS: Glucose, Whole Blood 122 mg/dL (60-115)
[2025-09-29 02:36] VITALS: BP 123/60; PULSE 76; RESP 14; TEMP 36.1; O2SAT 100
--- NOTE | 2025-09-29 05:05 | PC.NURSE ---
P seen on bed alert, confused, oriented to self, impulsive, meds crushed with tolerated, needs met, repositioned on bed
[2025-09-29 08:00] VITALS: BP 122/59; PULSE 85; RESP 14; TEMP 36.7; O2SAT 100
[2025-09-29] MEDS: 0.9 % Sodium Chloride Flush 3 ML SYRINGE IVFLUSH ×2 (08:23→20:57)
[2025-09-29 08:26] LABS: Glucose, Whole Blood 125 mg/dL (60-115)
[2025-09-29] MEDS: Metoprolol Succinate ER 12.5 MG HALFTAB.ER.24H PO (08:27)
[2025-09-29 11:45] LABS: Glucose, Whole Blood 117 mg/dL (60-115)
--- NOTE | 2025-09-29 12:01 | PC.NURSE ---
Patient laying in bed, eyes closed, unlabored breathing. Call diggs within reach, bed alarm on and virtual monitor in place.
--- NOTE | 2025-09-29 13:20 | HO.SKINPHOTO ---
Location: Coccyx Foam dressing removed. Area cleaned with normal saline, pat dry. New foam dressing applied. Reached out to wound care nurse to evalute. Location: Right Hip Foam changed
--- NOTE | 2025-09-29 14:32 | HO.WOUND ---
Wound Consult: Initial 84 yr old female admitted to [facility] on 09/22/25- See progress notes and H&P for detailed history. Wound consult placed for coccyx. Patient seen earlier this admission for blanchable redness to right hip and heels. Patient agreeable to assessment and photo documentation. Patient with advanced dementia, multiple comorbities including CAD, HTN, DM, severe constipation, severe protein calorie malnutrition. She is admitted with Acute cystitis with severe sepsis. Upon arrival to bedside, patient is awake and alert, drinking her ensure. she did not respond verbally, but was able to assist with turning to side to assess coccyx. HUGH pump on bed. Per nursing staff, patient with incontinence . TT to provider for santyl ointment. Coccyx Etiology: Unstageable pressure injury - components of MASD noted aggravated by protein calorie malnutrition. Measurements: 0.8cm x 1.2cm x 0.2cm Wound Bed: yellow brown slough Drainage / Odor: none Edges: ? pale pink Cesia wound: ? No Induration, Fluctuance or Warmth noted Pain: none Goals of Treatment: ?santyl for enzymatic debridement Recommendations: 1. Turn and Reposition every 2 hours and as needed for patient comfort. Use pillows or wedges to support off loading positions. 2. Off Load all bony prominences with use of pillows and heel boots if needed. Apply Preventative foams where needed. 3. Use waffle cushion when up to chair, limit sitting times to 1-2 hours 3. Monitor for incontinence and moisture control, use barrier creams when needed for prevention and treatment. 4. Provide adequate and supplemental nutrition. 5. Order or Continue low air loss mattress. 6. When applicable maintain blood glucose levels per Providers order. Coccyx: offload pressure with Q2H turns and pillows. cleanse wound with saline, apply triad cesia wound, apply santyl to wound bed, cover with xeroform and foam, change daily and PRN Re-consult wound care Nurse for wound deterioration or wound changes.
--- NOTE | 2025-09-29 14:56 | P.PNIM_ITS ---
Subjective Subjective Date of Service: 09/29/25 Interval History: Remains confused. No acute issues Review of Systems Unable to obtain Physical Exam 2 Vital Signs: Vital Signs: Last Vital Signs Temp 98.1 F 09/29/25 08:00 Pulse 85 09/29/25 08:00 Resp 14 09/29/25 08:00 BP 122/59 L 09/29/25 08:00 Pulse Ox 100 09/29/25 08:00 O2 Del Method Room Air 09/29/25 08:00 BMI result Body Mass Index 15.7 Const: Other: Somnolent but arousable Resp: Other: Clear to auscultation bilaterally no rales rhonchi or wheezes Cardio: Other: No S4; positive S1-S2; no S3 murmurs rubs or gallops GI: Other: Soft nontender nondistended normoactive bowel sounds Extrem: Other: No edema bilaterally Objective Data Active Medications Acetaminophen (Acetaminophen 325 Mg Tablet) 650 mg PO Q6H PRN PRN Reason: Pain, Mild 1-3,fever,headache Last Admin: 09/27/25 19:58 Dose: 650 mg Documented By: TYSON Amitriptyline HCl (Amitriptyline Hcl 10 Mg Tablet) 10 mg PO BEDTIME [facility] Last Admin: 09/28/25 21:29 Dose: 10 mg Documented By: LUIS MANUEL Atorvastatin Calcium (Atorvastatin Calcium 40 Mg Tablet) 40 mg PO DAILY [facility] Last Admin: 09/29/25 08:27 Dose: 40 mg Documented By: MARYURI Dextrose (Dextrose 50 % 25 Gm/50 Ml Syringe) 25 gm IVPUSH Q15M PRN; Protocol PRN Reason: per Hypoglycemia Standing Ord. Last Admin: 09/23/25 20:35 Dose: 25 gm Documented By: DMITRY Enoxaparin Sodium (Enoxaparin Sodium 40 Mg/0.4 Ml Syringe) 40 mg SUBCUT Q24H [facility] Last Admin: 09/29/25 04:37 Dose: 40 mg Documented By: LUIS MANUEL Glucose (Glucose Gel 15 Gm Gel..Gram.) 15 gm PO Q15M PRN; Protocol PRN Reason: per Hypoglycemia Standing Ord. Ceftriaxone Sodium 1 gm/ (Sodium Chloride) 50 mls @ 100 mls/hr IV Q24H [facility] Last Infusion: 09/29/25 09:01 Dose: Infused Documented By: MARYURI Insulin Human Lispro (Insulin Lispro 100 Unit/Ml 3 Ml Vial) 0 unit SUBCUT QIDACHS [facility]; Protocol Last Admin: 09/29/25 11:55 Dose: Not Given Documented By: JOSE DE JESUS Non-Admin Reason: No Insulin Coverage Melatonin (Melatonin 3 Mg Tablet) 3 mg PO BEDTIME PRN PRN Reason: Insomnia Last Admin: 09/28/25 21:29 Dose: 3 mg Documented By: LUIS MANUEL Metoprolol Succinate (Metoprolol Succinate Er 12.5 Mg Halftab.Er.24h) 12.5 mg PO DAILY [facility]; Protocol Last Admin: 09/29/25 08:27 Dose: 12.5 mg Documented By: MARYURI Mirtazapine (Mirtazapine 30 Mg Tablet) 30 mg PO BEDTIME [facility] Last Admin: 09/28/25 21:29 Dose: 30 mg Documented By: LUIS MANUEL Multivitamins/Vitamin C (Multivitamin Tablet) 1 tab PO DAILY [facility] Last Admin: 09/29/25 08:27 Dose: 1 tab Documented By: MARYURI Senna/Docusate Sodium (Sennosides/Docusate Sodium Tablet) 2 tab PO BEDTIME [facility] Last Admin: 09/28/25 21:29 Dose: 2 tab Documented By: LUIS MANUEL Sertraline HCl (Sertraline Hcl 25 Mg Tablet) 25 mg PO DAILY [facility] Last Admin: 09/29/25 08:27 Dose: 25 mg Documented By: MARYURI Sodium Chloride (0.9 % Sodium Chloride Flush 3 Ml Syringe) 3 ml IVFLUSH QSHIFT [facility] Last Admin: 09/29/25 08:23 Dose: 3 ml Documented By: MARYURI Labs 09/28/25 06:07 09/28/25 06:07 Labs: Laboratory Results - last 24 hr 09/28/25 09/28/25 09/29/25 16:17 20:47 07:26 POC Glucose 138 H 122 H 125 H 09/29/25 11:26 POC Glucose 117 H Assessment and Plan (1) Sepsis: Status: Acute (2) Diabetes type 2: Status: Acute Plan Elderly female with advanced dementia, multiple comorbidities, abdominal pain, and evidence of sepsis, likely secondary to complicated urinary tract infection with severe dehydration, and acute metabolic derangements. Also notable for steroal colitis/severe constipation Troponin elevation may represent demand ischemia or type 2 [place] in the context of sepsis and dehydration, ECG without acute ischemic changes. 1. Klebsiella UTI/severe sepsis (severe sepsis resolved) -completed course of Cephtriaxone -Blood cultures negative times 48 hours 2. Diabetes type 2 -lispro correctional scale -adjust therapies as indicated 3.Hypernatremia -good response to free water repletion -Continue D5/LR until adequate p.o. -follow renals/divalents 4.Type 2 myocardial injury -resolved Unable to cooperate with physical therapy evaluation. Discharge planning to discuss disposition with family. Quality Stroke Does the patient have a stroke diagnosis?: No VTE Prior VTE?: No VTE Risk Level:: Medical - moderate - high VTE Device Contraindication: Treatment Not Tolerated VTE Drug Contraindication: N/A - Med Ordered
--- NOTE | 2025-09-29 15:02 | MHC.CM.PN ---
per rounds pt not dcd todaydc plan remains home with vna
[2025-09-29 15:54] VITALS: BP 129/61; RESP 19; TEMP 36.8; O2SAT 100
[2025-09-29 16:07] LABS: Glucose, Whole Blood 163 mg/dL (60-115)
--- NOTE | 2025-09-29 18:19 | MHC.CLN ---
F/U PO INTAKE 25%. DIET RX: PUREE PT RECEIVING ENSURE TID TO PROMOTE NUTRITIONAL INTAKE SUPPLEMENT PROVIDES 1050KCALS, 60G PROTEIN CONTINUE TO MONITOR PO INTAKE AND ENCOURAGE SUPPLEMENT
--- NOTE | 2025-09-29 18:35 | PC.NURSE ---
Patient no longer has IV medications ordered. Peripheral IV access established. Reached out to Provider Lilibeth via [employer] to see if central line can be discontinued, provider okay to discontinue central line. Central line discontinued, patient placed in trendelenburg position, occlusive dressing applied, pressure held of 10 minutes. Patient tolerated well.
[2025-09-29 19:36] VITALS: BMI 15.7
--- NOTE | 2025-09-29 19:42 | MHC.CLN ---
F/U SKIN WITH UNSTAGEABLE AREA TO COCCYX. ENSURE TID IN PLACE TO PROMOTE NUTRITIONAL INTAKE AND SKIN INTEGRITY. FOLLOW FOR PO INTAKE AND WOUND HEALING. SEE CLINICAL NUTRITION ASSESSMENT.
[2025-09-29 19:45] VITALS: BP 116/56
[2025-09-29 19:50] LABS: Glucose, Whole Blood 100 mg/dL (60-115)
[2025-09-29 20:00] VITALS: PULSE 84; RESP 19; TEMP 37; O2SAT 95
[2025-09-30 05:06] VITALS: BP 114/57; PULSE 87; RESP 18; TEMP 37.3; O2SAT 97
[2025-09-30 07:28] LABS: Glucose, Whole Blood 102 mg/dL (60-115)
[2025-09-30 07:39] VITALS: BP 96/57; PULSE 81; RESP 16; TEMP 36.4; O2SAT 96
[2025-09-30 09:06] VITALS: BP 162/60; PULSE 87
[2025-09-30] MEDS: 0.9 % Sodium Chloride Flush 3 ML SYRINGE IVFLUSH ×3 (09:13→21:30)
[2025-09-30] MEDS: Metoprolol Succinate ER 12.5 MG HALFTAB.ER.24H PO (09:13)
[2025-09-30 11:22] LABS: Glucose, Whole Blood 111 mg/dL (60-115)
--- NOTE | 2025-09-30 12:58 | P.PNIM_ITS ---
Subjective Subjective Date of Service: 09/30/25 Interval History: Remains pleasantly confused. No acute issues overnight Review of Systems Unable to obtain Physical Exam 2 Vital Signs: Vital Signs: Last Vital Signs Temp 97.6 F 09/30/25 07:39 Pulse 87 09/30/25 09:06 Resp 16 09/30/25 07:39 BP 162/60 H 09/30/25 09:06 Pulse Ox 96 09/30/25 07:39 O2 Del Method Room Air 09/30/25 07:39 BMI result Body Mass Index 15.7 Const: Other: Somnolent but arousable Resp: Other: Clear to auscultation bilaterally no rales rhonchi or wheezes Cardio: Other: No S4; positive S1-S2; no S3 murmurs rubs or gallops GI: Other: Soft nontender nondistended normoactive bowel sounds Extrem: Other: No edema bilaterally Objective Data Active Medications Acetaminophen (Acetaminophen 325 Mg Tablet) 650 mg PO Q6H PRN PRN Reason: Pain, Mild 1-3,fever,headache Last Admin: 09/27/25 19:58 Dose: 650 mg Documented By: TYSON Amitriptyline HCl (Amitriptyline Hcl 10 Mg Tablet) 10 mg PO BEDTIME TAL Last Admin: 09/29/25 20:57 Dose: 10 mg Documented By: ASNDER Atorvastatin Calcium (Atorvastatin Calcium 40 Mg Tablet) 40 mg PO DAILY [facility] Last Admin: 09/30/25 09:13 Dose: 40 mg Documented By: DENI Collagenase (Collagenase Clostridium Hist. 30 Gm Tube) 1 appl TOPICAL DAILY [facility]; Protocol Dextrose (Dextrose 50 % 25 Gm/50 Ml Syringe) 25 gm IVPUSH Q15M PRN; Protocol PRN Reason: per Hypoglycemia Standing Ord. Last Admin: 09/23/25 20:35 Dose: 25 gm Documented By: DMITRY Enoxaparin Sodium (Enoxaparin Sodium 40 Mg/0.4 Ml Syringe) 40 mg SUBCUT Q24H [facility] Last Admin: 09/30/25 04:59 Dose: 40 mg Documented By: SANDER Glucose (Glucose Gel 15 Gm Gel..Gram.) 15 gm PO Q15M PRN; Protocol PRN Reason: per Hypoglycemia Standing Ord. Insulin Human Lispro (Insulin Lispro 100 Unit/Ml 3 Ml Vial) 0 unit SUBCUT QIDACHS [facility]; Protocol Last Admin: 09/30/25 11:30 Dose: Not Given Documented By: DENI Non-Admin Reason: No Insulin Coverage Melatonin (Melatonin 3 Mg Tablet) 3 mg PO BEDTIME PRN PRN Reason: Insomnia Last Admin: 09/29/25 20:57 Dose: 3 mg Documented By: SANDER Metoprolol Succinate (Metoprolol Succinate Er 12.5 Mg Halftab.Er.24h) 12.5 mg PO DAILY [facility]; Protocol Last Admin: 09/30/25 09:13 Dose: 12.5 mg Documented By: DENI Mirtazapine (Mirtazapine 30 Mg Tablet) 30 mg PO BEDTIME [facility] Last Admin: 09/29/25 20:57 Dose: 30 mg Documented By: SANDER Multivitamins/Vitamin C (Multivitamin Tablet) 1 tab PO DAILY [facility] Last Admin: 09/30/25 09:13 Dose: 1 tab Documented By: DENI Senna/Docusate Sodium (Sennosides/Docusate Sodium Tablet) 2 tab PO BEDTIME [facility] Last Admin: 09/29/25 20:57 Dose: 2 tab Documented By: SANDER Sertraline HCl (Sertraline Hcl 25 Mg Tablet) 25 mg PO DAILY [facility] Last Admin: 09/30/25 09:13 Dose: 25 mg Documented By: DENI Sodium Chloride (0.9 % Sodium Chloride Flush 3 Ml Syringe) 3 ml IVFLUSH QSHIFT [facility] Last Admin: 09/30/25 09:13 Dose: 3 ml Documented By: DENI Labs 09/28/25 06:07 09/28/25 06:07 Labs: Laboratory Results - last 24 hr 09/29/25 09/29/25 09/30/25 16:02 19:36 07:24 POC Glucose 163 H 100 102 09/30/25 11:18 POC Glucose 111 Assessment and Plan (1) Acute UTI: Status: Acute Plan Elderly female with advanced dementia, multiple comorbidities, abdominal pain, and evidence of sepsis, likely secondary to complicated urinary tract infection with severe dehydration, and acute metabolic derangements. Also notable for steroal colitis/severe constipation Troponin elevation may represent demand ischemia or type 2 [place] in the context of sepsis and dehydration, ECG without acute ischemic changes. 1. Klebsiella UTI/severe sepsis (severe sepsis resolved) -resolved -Blood cultures negative times 48 hours 2. Diabetes type 2 -lispro correctional scale -adjust therapies as indicated 3.Hypernatremia -good response to free water repletion -Continue D5/LR until adequate p.o. -follow renals/divalents 4.Type 2 myocardial injury -resolved Unable to cooperate with physical therapy evaluation. Discharge planning to discuss disposition with family. Quality Stroke Does the patient have a stroke diagnosis?: No VTE Prior VTE?: No VTE Risk Level:: Medical - moderate - high VTE Device Contraindication: Treatment Not Tolerated VTE Drug Contraindication: N/A - Med Ordered
[2025-09-30 15:48] VITALS: BP 121/73; PULSE 81; RESP 16; TEMP 36.8; O2SAT 98
[2025-09-30 16:20] LABS: Glucose, Whole Blood 155 mg/dL (60-115)
[2025-09-30 19:22] VITALS: BP 104/56; PULSE 86; RESP 16; TEMP 36.9; O2SAT 98
[2025-09-30 20:25] LABS: Glucose, Whole Blood 145 mg/dL (60-115)
[2025-10-01 04:00] VITALS: BP 98/58; PULSE 86; RESP 16; TEMP 37; O2SAT 96
[2025-10-01 07:37] VITALS: BP 97/52; PULSE 80; RESP 14; TEMP 36.4; O2SAT 97
[2025-10-01 08:05] LABS: Glucose, Whole Blood 101 mg/dL (60-115)
[2025-10-01 10:06] VITALS: BP 103/58; PULSE 84; O2SAT 95
[2025-10-01] MEDS: 0.9 % Sodium Chloride Flush 3 ML SYRINGE IVFLUSH (10:16)
[2025-10-01 11:26] LABS: Glucose, Whole Blood 175 mg/dL (60-115)
--- NOTE | 2025-10-01 11:29 | MHC.CM.PN ---
CM INFORMED PT COULD BE CLEARED TO DC HOME TODAY CM CALLED PTS GRANDDAUGHTER/PRIMARY HCP, [facility] (NOT JAIME WRITTEN ON PTS HCP) [phone] SHE WAS INFORMED OF POTENTIAL DC AND REPORTS FAMILY CAN TRANSPORT AROUND 1300 HOURS SHE WILL DC HOME WITH THE RESUMPTION OF [facility], MORPHOLOGIST AND FAMILY SUPPORT
--- NOTE | 2025-10-01 12:46 | HO.SKINPHOTO ---
Location: Coccyx Dressing changed per order.
--- NOTE | 2025-10-01 13:09 | P.DS_ITS ---
DS: Providers Provider Date of admission: 09/22/25 02:29 Date of discharge: 10/01/25 Primary care physician: Stef Greer MD Consults: 09/23/25 12:46 Consult to Nephrology Routine Consulting Provider: [facility] Reason for consultation: hypernatremia 09/23/25 17:45 Consult to Wound Care Routine Consulting Provider: [facility] Reason for consultation: circular shape to right hip area 09/29/25 13:22 Consult to Wound Care Routine Consulting Provider: [facility] Reason for consultation: Coccyx DS: Diagnosis Discharge Diagnosis (1) Acute UTI: Status: Acute DS: Summary Hospital Course Hospital Course: 84-year-old female with comorbid conditions significant for major neurocognitive disorder, upper GI bleed due to peptic ulcer disease, coronary artery disease, prior CVA, cholecystitis, and emphysematous cystitis presented via EMS for generalized malaise, abdominal pain, and foul-smelling urine. Reported symptoms included malaise, abdominal pain, and foul urine odor. No fever, vomiting, or diarrhea. In the ED: right lower quadrant abdominal tenderness, rectal vault full of hard stool requiring disimpaction. Sepsis protocol activated in the ED, the patient received 1 L of LR, which was then changed to D5W and empirical dose of ceftriaxone. Central line placed due to poor IV access. Hospital Course Patient admitted to general medical floor. Urine culture ultimately grew out Klebsiella. She completed a course of ceftriaxone IV while in-house. At this point in time she is medically acceptable for discharge and family wishes to take her home and resume services. She is medically acceptable for same Time Attestation Discharge Coordination Time (in mins): 35 Quality: Safe Use of Opioids Does Pt have an Active Cancer Diagnosis on the Problem List?: No Quality: Stroke Does the patient have a stroke diagnosis?: No Physical Exam Vital Signs: Vital Signs: Last Vital Signs Temp 97.6 F 10/01/25 07:37 Pulse 84 10/01/25 10:06 Resp 14 10/01/25 07:37 BP 103/58 L 10/01/25 10:06 Pulse Ox 95 10/01/25 10:06 O2 Del Method Room Air 10/01/25 10:06 BMI result Body Mass Index 15.7 Const: Other: Somnolent but arousable Resp: Other: Clear to auscultation bilaterally no rales rhonchi or wheezes Cardio: Other: No S4; positive S1-S2; no S3 murmurs rubs or gallops GI: Other: Soft nontender nondistended normoactive bowel sounds Extrem: Other: No edema bilaterally DS: Data Data Completed and Pending Completed studies during hospitalization [Text1]: Procedures Excision of Esophagus, Via Natural or Artificial Opening Endoscopic, Diagnostic (04/27/25) Excision of Lower Esophagus, Via Natural or Artificial Opening Endoscopic, Diagnostic (01/21/25) Excision of Rectum, Via Natural or Artificial Opening Endoscopic, Diagnostic (08/05/25) Excision of Stomach, Pylorus, Via Natural or Artificial Opening Endoscopic, Diagnostic (08/04/24) Extraction of Esophagus, Via Natural or Artificial Opening Endoscopic, Diagnostic (04/27/25) Insertion of Infusion Device into Left Brachial Vein, Percutaneous Approach (12/21/24) Inspection of Upper Intestinal Tract, Via Natural or Artificial Opening Endoscopic (08/05/25) Transfusion of Nonautologous Red Blood Cells into Peripheral Vein, Percutaneous Approach (08/05/25) Labs on day of discharge: Laboratory Results - last 24 hr 09/30/25 09/30/25 10/01/25 16:11 20:21 07:35 POC Glucose 155 H 145 H 101 10/01/25 11:05 POC Glucose 175 H Discharge Plan Discharge Anticipated Discharge Date/Time: 10/01/25 13:03 Patient Disposition: Home Health Service Discharge Diagnosis: Klebsiella UTI [facility]errals: [facility] [Other] - 1 Week Referral Note: [facility] services to resume Physician,Unknown J [Physician, Medical] - 1 Week Discharge Medications: Continued mirtazapine 30 mg tablet 30 mg PO BEDTIME sertraline 25 mg tablet 1 tab PO DAILY acetaminophen 500 mg tablet 500 mg PO Q6H PRN (Reason: Pain) melatonin 5 mg tablet 5 mg PO BEDTIME metoprolol succinate 25 mg tablet extended release 24 hr 12.5 mg PO DAILY multivitamin Tablet 1 tab PO DAILY atorvastatin 40 mg tablet 40 mg PO DAILY amitriptyline 10 mg tablet 10 mg PO BEDTIME calcium carbonate-vitamin D3 [Oyster Shell Calcium-Vit D3] 500 mg-10 mcg (400 unit) tablet 1 tab PO BID sennosides-docusate sodium [Lax Stool Softener With Senna] 8.6-50 mg tablet 2 tab-cap PO BEDTIME 30 Days Qty: 60 3RF Discharge Orders: Discharge Order (Routine); Ordered 10/01/25 Ordered By: Clayton Mcelroy Diet: Advance to usual diet Activity on Discharge: As tolerated Stand Alone Forms: Patient Portal Discharge page Print Language: Argentine Care Plan Goals: Continue all medicine as taken prior to hospitalization Health Concerns: Resume all care and services as prior to hospitalization Plan of Treatment: Follow up with PCP as scheduled Assessment: See discharge summary
[2025-10-01 13:56] VITALS: BP 102/56; PULSE 101; RESP 16; TEMP 37.4; O2SAT 98
--- NOTE | 2025-10-01 14:12 | PC.NURSE ---
Discharge instructions reviewed with patient and Son utilizing [employer]. Reviewed medications and wound care. Provider Lilibeth notified of discharge vitals, per treasury associate patient still wants to go home and Son is okay with her going home. Via [employer], Provider Lilibeth okay to continue with patient discharge.
== END 2025-10-01 14:21 | disposition home health service (06) | DRG 871 ==
LOC: HO.ED 09-22 02:21 → HO.EDOVER 09-22 02:52 → HO.IMC 09-22 22:14 → HO.S3 09-28 13:35
PROVIDERS: Emergency Medicine; Student in an Organized Health Care Education/Training Program; Admitting Provider Family Medicine; Emergency Provider Emergency Medicine; PCP Internal Medicine Geriatric Medicine; Visit Provider Hospitalist
DX: A41.9 Sepsis, unspecified organism (principal); E43 Unspecified severe protein-calorie malnutrition; G92.8 Other toxic encephalopathy; I21.A1 Myocardial infarction type 2; E87.0 Hyperosmolality and hypernatremia; N30.00 Acute cystitis without hematuria; Z68.1 Body mass index [BMI] 19.9 or less, adult; R65.20 Severe sepsis without septic shock; I25.10 Atherosclerotic heart disease of native coronary artery without angina pectoris; F03.90 Unspecified dementia, unspecified severity, without behavioral disturbance, psychotic disturbance, mood disturbance, and anxiety; E86.0 Dehydration; B96.1 Klebsiella pneumoniae [K. pneumoniae] as the cause of diseases classified elsewhere; K56.41 Fecal impaction; L89.150 Pressure ulcer of sacral region, unstageable; K52.89 Other specified noninfective gastroenteritis and colitis; E11.65 Type 2 diabetes mellitus with hyperglycemia; Z20.822 Contact with and (suspected) exposure to COVID-19; Z87.891 Personal history of nicotine dependence; Z79.899 Other long term (current) drug therapy
CPT/HCPCS: 36415; 71045; 74176; 80048; 80053; 80076; 81001; 82947; 83605; 83690; 84484; 85007; 85025; 85027; 87040; 87086; 87186; 87637; 92610; 93005; 97161; 99285; J0131; J0696; J1650; J7120

== ENCOUNTER → 2025-09-21 18:30 | Outpatient (BNV) | payer OTHER, SELFPAY | PROVIDERS: Emergency Provider Emergency Medicine; Visit Provider Radiology Diagnostic Radiology | DX: Z45.2 Encounter for adjustment and management of vascular access device (principal) | CPT/HCPCS: 71045 ==

== ENCOUNTER → 2025-09-21 18:30 | Outpatient (BNV) | payer OTHER, SELFPAY | PROVIDERS: Admitting Provider Family Medicine; Emergency Provider Emergency Medicine; Visit Provider Internal Medicine Cardiovascular Disease | DX: I49.3 Ventricular premature depolarization (principal); I49.1 Atrial premature depolarization; R00.0 Tachycardia, unspecified | CPT/HCPCS: 93010 ==

== ENCOUNTER → 2025-09-22 02:05 | Outpatient (BNV) | payer OTHER, SELFPAY | PROVIDERS: Admitting Provider Family Medicine; Emergency Provider Emergency Medicine; Visit Provider Radiology Diagnostic Radiology | DX: N20.0 Calculus of kidney (principal); K80.20 Calculus of gallbladder without cholecystitis without obstruction; Z45.2 Encounter for adjustment and management of vascular access device | CPT/HCPCS: 71045; 74176 ==

== ENCOUNTER → 2025-09-22 02:29 | Outpatient (BNV) | payer OTHER, SELFPAY | PROVIDERS: Admitting Provider Family Medicine; Emergency Provider Emergency Medicine; Visit Provider Family Medicine | DX: E87.0 Hyperosmolality and hypernatremia (principal); K59.00 Constipation, unspecified | CPT/HCPCS: 99222; 99232; 99233; 99499 ==

== ENCOUNTER → 2025-10-02 09:56 | Outpatient (BNV) | payer OTHER, SELFPAY | PROVIDERS: Emergency Provider Emergency Medicine; Visit Provider Radiology Diagnostic Radiology | DX: K92.0 Hematemesis (principal); R10.9 Unspecified abdominal pain; R11.10 Vomiting, unspecified | CPT/HCPCS: 71045; 74018 ==

== ENCOUNTER → 2025-10-02 09:56 | Outpatient (BNV) | payer OTHER, SELFPAY | PROVIDERS: Admitting Provider Hospitalist; Emergency Provider Emergency Medicine; Visit Provider Internal Medicine | DX: R00.0 Tachycardia, unspecified (principal) | CPT/HCPCS: 93010 ==

== ENCOUNTER → 2025-10-02 13:26 | Outpatient (BNV) | payer OTHER, SELFPAY | PROVIDERS: Admitting Provider Hospitalist; Emergency Provider Emergency Medicine; Visit Provider Internal Medicine Gastroenterology | DX: K92.2 Gastrointestinal hemorrhage, unspecified (principal); R11.2 Nausea with vomiting, unspecified | CPT/HCPCS: 99222 ==

== ENCOUNTER → 2025-10-02 13:26 | Outpatient (BNV) | payer OTHER, SELFPAY | PROVIDERS: Admitting Provider Hospitalist; Emergency Provider Emergency Medicine; Visit Provider Hospitalist | DX: R57.8 Other shock (principal) | CPT/HCPCS: 99232 ==